=== PATIENT | male | born 1990 | race Caucasian/White ===

== ENCOUNTER 2021-09-07 17:02 | Emergency (ER) | payer SELFPAY ==
[2021-09-07 17:13] VITALS: BP 119/75; PULSE 103; RESP 18; TEMP 37.3; O2SAT 93
--- NOTE | 2021-09-07 17:15 | DI.RAD_ITS ---
Exam(s) XR FOREARM RT EXAM: XR FOREARM RT CLINICAL HISTORY: pain. TECHNIQUE: 2D digital imaging was performed of the left forearm. Two views were obtained. AP and l ateral views were obtained. COMPARISON: No exams were available for comparison FINDINGS: BONES: No acute fracture is present. No bony destructive lesion is seen. Visualized portion of elbow and wrist joints are unremarkable. SOFT TISSUE: Normal. IMPRESSION: Unremarkable radiographs of the left forearm. DATA REPOSITORY: RADIATION DOSE DELIVERED:
--- NOTE | 2021-09-07 17:15 | DI.RAD_ITS ---
Exam(s) XR HUMERUS RT EXAM: XR HUMERUS RT CLINICAL HISTORY: pain. TECHNIQUE: 2D digital imaging was performed of the right humerus. Two images were obtained. AP and lateral views were obtained. COMPARISON: No exams were available for comparison FINDINGS: BONES: No acute fracture is present. No bony destructive lesion is seen. Visualized portion of elbow and shoulder joints are unremarkable. SOFT TISSUE: Normal. IMPRESSION: Unremarkable radiographs of the right humerus. DATA REPOSITORY: RADIATION DOSE DELIVERED:
--- NOTE | 2021-09-07 17:15 | DI.RAD_ITS ---
Exam(s) XR ELBOW RT COMPLETE EXAM: XR ELBOW RT COMPLETE CLINICAL HISTORY: pain. TECHNIQUE: 2D digital imaging was performed of the left elbow. Three images were obtained. AP, lat eral and oblique views were obtained. COMPARISON: No exams were available for comparison FINDINGS: BONES: No acute fracture is present. No bony destructive lesion is seen. JOINTS: The elbow is normally aligned. No joint effusion is seen. SOFT TISSUE: Normal. IMPRESSION: Unremarkable radiographs of the right elbow. DATA REPOSITORY: RADIATION DOSE DELIVERED:
--- NOTE | 2021-09-07 17:22 | ED.GENADUL_ITS ---
Discharge Plan Disposition Patient Disposition: HOME Condition: Stable Discharge Details Clinical Impression: Contusion of arm, left Primary Care Provider: Unknown,Unknown ED Provider: Pranav Henry Home Meds and New Rx's Prescriptions: No Action No Known Home Meds RF: 0 Discharge Instructions Instructions: Contusion in Adults (ED) Additional Instructions: The xrays did not show any broken bones you likely have a bone bruise you can take 1000mg tylenol and 600mg ibuprofen every 6 hours as needed for pain if pain continues in a week follow up with your primary care provider return to the emergency department if you feel more ill, have severe worsening pain or new pain such as chest pain or abdominal pain Medical Decision Making 31 yo male comes in with right arm pain. 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 He has had pain in the distal right humerus, elbow and proximal forearm since. Denies headache, neck pain, chest pain, abdominal pain. He has no significnt deformity or swelling on my exam compared to the left. No erythema on my exam. Normal sensatation and pulses, no tenderness in the hand or wrist with full rom. Tenderness over proximal anterior forearm, olecranon, and distal anterior humerus. No tenderness over the shoulder with full range of motion. Suspect contusion but will xray to evaluate for fx. No significant swelling, muscle feels soft and neurovascularly intact so doubt compartment syndrome imaging unremarkable and he remains stable. Discussed with patient and he is stable for d/c advised to f/u with pcp in a week if pain continues and return precautions given Differential Diagnosis Differential Diagnosis: contusion, fracture, sprain Imaging Data Radiologic Study: Attestation: I personally reviewed and interpreted this imaging study as follows: Imaging: X-Ray My impression: no acute findings on humerus xray Radiologic Study #2: Attestation: I personally reviewed and interpreted this imaging study as follows: Imaging: X-Ray My impression: no acute findings on elbow xray Radiologic Study #3: Attestation: I personally reviewed and interpreted this imaging study as follows: Imaging: X-Ray My impression: no acute finings on forearm xray HPI General Mode of arrival: ambulatory . Date/Time Provider Initiated Documentation: 09/07/21 17:04 . Limitations to Documentation: no limitations . Information obtained by: patient . History of Present Illness 31 year old M presents to the emergency department with the chief complaint of right elbow pain, described as moderate, Quality is described as aching, and is localized to the right and upper extremity. Patient reports no radiation. Patient started experiencing this day(s) (1) and it has been constant. Rest improves symptom(s), Movement worsens symptoms . Patient notes no other symptoms.. Patient did receive the following treatments prior to arrival, none Related Data Home Medications Medication Instructions Recorded Confirmed Unknown [No Known Home Meds] 09/07/21 09/07/21 Allergies Allergy/AdvReac Type Severity Reaction Status Date / Time No Known Allergies Allergy Unverified 09/07/21 17:16 General Stated Complaint: Orthopedic FAITH: 4 Review of Systems All systems reviewed & are unremarkable except as noted in HPI and below Constitutional Constitutional: Denies chills, Denies fever(s) and Denies weakness Cardiovascular Cardiovascular: Denies chest pain and Denies dyspnea Respiratory Respiratory: Denies cough and Denies dyspnea Gastrointestinal Gastrointestinal: Denies abdominal pain, Denies nausea and Denies vomiting Integumentary/Breasts Skin/Breast: Denies rash Neurologic Neurologic: Denies weakness [facility] Medical History (Updated 09/07/21 @ 18:29 by Pranav Henry MD) Bipolar 1 disorder Surgical History (Updated 09/07/21 @ 17:30 by Mansi Bee) History of vasectomy Social History Smoking/Tobacco Use Status: Current every day Tobacco Type: cigarettes Smoking risk assessment performed?: Yes Alcohol Intake: current Alcohol Intake frequency: 0-2 drinks per day Drug use: Daily Substance use type: marijuana Do you feel safe at home: Yes Do you feel safe in your relationship?: Yes Exam Const General: no acute distress Orientation: alert HENMT Head: normal to inspection Ears: external ears normal General nose exam: external nose normal Mouth: moist mucous membranes Eyes General: appearance normal, both eyes and all related structures Neck Neck: normal visual inspection Resp Effort & Inspection: normal respiratory effort and able to speak in complete sentences Cardio Rate: regular rate Skin General skin exam: no rashes or lesions noted Neuro General: patient alert and patient oriented x3 Extrem General: full ROM and capillary refill normal Psych Mental Status: mental status grossly normal Course Vital Signs Vital signs: Vital Signs Temperature 37.3 C 10/21/21 17:13 Pulse 103 H 09/07/21 17:13 Respiratory Rate 18 09/07/21 17:13 Blood Pressure 119/75 09/07/21 17:13 Pulse Oximetry 93 09/07/21 17:13 Temperature 37.3 C 09/07/21 17:13 Temperature Source Skin 09/07/21 17:13 Pulse 103 H 09/07/21 17:13 Respiratory Rate 18 09/07/21 17:13 Respiratory Effort Non-Labored 09/07/21 17:17 Blood Pressure 119/75 09/07/21 17:13 Pulse Oximetry 93 09/07/21 17:13 Pain Level 7 09/07/21 17:13 PAWSS Have you Been Recently Intoxicated or Drunk Within the Last 30 days?: Yes Have you Ever Experienced Previous Episodes of Alcohol Withdrawal?: No Have you ever Experienced Withdrawal Seizures?: No Have you ever Experienced Delirium Tremens(DT)s?: No Have you ever undergone Alcohol Rehabilitation Treatment (i.e, inpt ot outpatient treatment programs)?: No Have you ever Experienced Blackouts?: No Have you ever Combined Alcohol with other Downers within the last 90 days?: No Have you ever Combined Alcohol with any other Substance of Abuse during the last 90 days?: Yes Evidence of Increased Autonomic Activity (i.e. HR>120, tremor, sweating, agitation, nausea)?: No Result: 3
[2021-09-07] MEDS: Ibuprofen 600 MG TAB PO (17:29)
--- NOTE | 2021-09-07 18:37 | DI.VRAD_ITS ---
PROCEDURE INFORMATION: Exam: XR Right Forearm Exam date and time: 09/07/2021 6:18 PM Age: 31 years old Clinical indication: Pain; Lower or forearm and upper arm; Right TECHNIQUE: Imaging protocol: XR Right forearm. Views: 2 views. COMPARISON: CR XR ELBOW RT COMPLETE 09/07/2021 6:13 PM FINDINGS: Bones/joints: Normal. Soft tissues: Normal. IMPRESSION: No acute findings. Dictated and Authenticated by: Adis Pena MD. Ordering:TIMBO Rock MD
--- NOTE | 2021-09-07 18:37 | DI.VRAD_ITS ---
PROCEDURE INFORMATION: Exam: XR Right Elbow Exam date and time: 09/07/2021 6:18 PM Age: 31 years old Clinical indication: Pain; Elbow; Right TECHNIQUE: Imaging protocol: XR Right elbow. Views: 3 or more views. COMPARISON: CR XR HUMERUS RT 09/07/2021 6:07 PM FINDINGS: Bones/joints: Normal. Soft tissues: Normal. IMPRESSION: No acute findings. Dictated and Authenticated by: Adis Pena MD. Ordering:TIMBO Rock MD
--- NOTE | 2021-09-07 18:55 | DI.VRAD_ITS ---
PROCEDURE INFORMATION: Exam: XR Right Humerus Exam date and time: 09/07/2021 6:18 PM Age: 31 years old Clinical indication: Pain; Upper arm and other: Humerus; Right TECHNIQUE: Imaging protocol: XR Right humerus. Views: 2 or more views. COMPARISON: No relevant prior studies available. FINDINGS: Bones/joints: Normal. Soft tissues: Normal. IMPRESSION: No evidence for acute abnormality. Dictated and Authenticated by: Kanika Davey MD. Ordering:TIMBO Rock MD
[2021-09-07 19:10] VITALS: BP 138/74; PULSE 64; RESP 18; O2SAT 98
== END 2021-09-07 19:12 | disposition home or self-care (01) ==
PROVIDERS: Emergency Provider Emergency Medicine
DX: S50.01XA Contusion of right elbow, initial encounter (principal); W23.0XXA Caught, crushed, jammed, or pinched between moving objects, initial encounter
CPT/HCPCS: 99284; 73060; 73080; 73090; 99283

== ENCOUNTER 2022-06-05 06:42 | Emergency (ER) | payer OTHER, SELFPAY ==
[2022-06-05 06:48] VITALS: BP 163/78; PULSE 89; RESP 16; TEMP 36.5; O2SAT 97
--- OUTSIDE RECORDS SUMMARY | 2022-06-05 06:49 | XMS_ITS | Encounter Summary ---
:1990 Author Organization [facility] Address [address] [place] [address] Care Team Providers Name Role Phone Rogelio Dominguez MD Primary Care Provider Encounter Details Date Type Department Care Team Description 02/16/2021 Travel Social History Tobacco Use Types Packs/Day Years Used Date Current Every Day Smoker Cigarettes 1 7 Smokeless Tobacco: Never Used Comments: off and on for 7 years Alcohol Use Standard Drinks/Week Comments Yes 35 (1 standard drink = 0.6 oz pure alcoh ol) Sex Assigned at Date Recorded Male 09/05/2020 10:43 EDT COVID-19 Exposure Response Date Recorded In the last month, have you been in contact with No / Unsure 02/16/2021 9:48 EDT someone who was confirmed or suspected to have Coronavirus / COVID-19? documented as of this encounter Functional Status Functional Status Response Date of Assessment Because of a physical, mental, or emotional condition, No 05/16/2018 does this person have difficulty doing errands alone such as visiting a doctor's office or shopping? Cognitive Status Response Date of Assessment Because of a physical, mental, or emotional condition, No 05/16/2018 does this person have serious difficulty concentrating, remembering, or making decisions? documented as of this encounter Plan of Treatment Not on filedocumented as of this encounter Goals Goal Patient Goal Associated Recent Patient-Stated? Author Type Problems Progress Blood Pressure Blood Pressure Hypertensive 145/96 No Vosb urg, < 130/80 disorder (06/04/2022 SHIRA Boyd 13:12 EDT) Being Active General Severe obesity No Jesse, with body mass TelisaALLIE N index (BMI) of 35.0 to 39.9 with comorbidity ([facility]) Note: Being Active Goal: Go for a walk 4 times per week for 20 minutes. The patient's confidence level, sources of support and barriers to change were assessed. Pertinent information is documented in the visit encounter. Counseling was provided to assess readiness, confidence and/or barriers to self-care. 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
--- OUTSIDE RECORDS SUMMARY | 2022-06-05 06:49 | XMS_ITS | Encounter Summary ---
:1990 Author Organization [facility] Address [address] [place] [address] Care Team Providers Name Role Phone Rogelio Dominguez MD Primary Care Provider Reason for Visit Reason Onset Date Comments COVID-19 02/27/2021 Nasal Congestion 02/27/2021 Pharyngitis 02/27/2021 Encounter Details Date Type Department Care Team Description 02/27/2021 Telephone [facility] Rogelio Dominguez MD COVID-19; Nasal Family Medicine - [address] [facility] Congestion; [place] [address] [place] [address] [phone] Social History Tobacco Use Types Packs/Day Years [...] making decisions? documented as of this encounter Miscellaneous Notes [place] En[place] - 02/27/2021 1771 EDT Patient reports positive COVID-19 exposure. Last date of exposure: Today 02/27/21 How long was the exposure? Lives with Masks? Yes, since known positive Any Symptoms? Nasal congestion, ST more mucus (Just sent another family member to hospital with concern for COVID) 7 day post exposure date: 03/06/21; -Patient reports they live in a one bedroom apartment, not really able to isolate away. Discussed protocol with Patient that if he is not able to isolate away from partner then second testing date would need to change. Will order for 7 day for now, if not positive after first, will need to find out exactly when partners quarantine is over to re-order for 7 days post end of partner's quarantine. Vaccinated? no Per [place] [facility]: Get tested twice ??? as soon as two days after you were exposed to the person with COVID-19, and again seven days after the exposure. If your initial test is negative, you will need to remain in quarantine and follow guidance from the Health Department. If this test is positive, you must follow isolation guidance from the Health Department. Find out where to get tested. It's okay to leave home for testing. Getting tested right away means you can find out if you have COVID-19 early. This also helps the Health Department find other people who have COVID-19 more quickly. Getting tested before day 7 cannot be used to end quarantine. (https://www.[facility].gov/covid-19/symptoms-sickness/kcaoo-aepxshvj-ooeouok -tracing) Preferred testing location: [facility] Preferred phone No: [phone] City/Town of residence: [place] If a patient is experiencing acute symptoms requiring urgent or emergent care(shortness of breath ordifficulty breathing), patient should be directed to appropriate service (i.e. Urgent Care or ED).Provider must notify Urgent Care or ED of patient???s arrival. If appropriate, testing will occur at Urgent Care/ED. ADVISE PATIENT TO WAIT WHERE THEY ARE AND AWAIT FURTHER DIRECTION. Forward to PCP/POD for further review/sign testing order. [facility] COVID-19 Hotline for providers to support decision-making in the care of patients suspected ofhaving COVID-19: ([phone] [phone]. 10/06 emergent or urgent assistance from [facility] representatives: [phone] elephone Encounter - Lisa Haider - 02/27/2021 0803 EDT Reason for Call: COVID-19, Nasal Congestion, and Pharyngitis Summary/Symptoms: Patient's girlfriend tested positive for COVID yesterday, so now patient is requesting a COVID test. Patient states he just a runny nose and sore throat. Onset and Duration? Ongoing Appointment Offered? No Lisa Haider 02/27/2021 8:04 documented in this encounter Plan of Treatment Not on filedocumented as of this encounter Goals Goal Patient Goal Associated Recent Patient-Stated? Author Type Problems Progress Blood Pressure Blood Pressure Hypertensive 145/96 No Vosb urg, < 130/80 disorder (06/04/2022 SHIRA Boyd 13:12 EDT) Being Active General Severe obesity No Jesse, with body mass Telisa, LP N index (BMI) of 35.0 to 39.9 with comorbidity ([facility]) Note: Being Active Goal: Go for a walk 4 times per week for 20 minutes. The patient's confidence level, sources of support and barriers to change were assessed. Pertinent information is documented in the visit encounter. Counseling was provided to assess readiness, confidence and/or barriers to self-care. To learn more about your health please v isit: [facility] Wellness Resource documented as of this encounter Results (ABNORMAL) COVID-19 TESTING (02/27/2021 15:37 EDT) COVID-19 rt-PCR Positive ([facility]) Negative [facility] Result Comment: LABORATORY This test has not been FDA c leared or approved. This test has been authorized by FDA under an EUA for use by authorized laboratories. This test has been authorized only for detection of nucleic acid fro SERVICES m 2019-nCoV, not for any oth er viruses or pathogens. This test is only authorized for the duration of the declaration that circumstances exist justifying the authorization of emergency use of in vitro d iagnostic tests for detectio n and/or diagnosis of 2019-nCoV under section 564(b)(1) of Act, 21 U.S.C ?? 360bbb-3(b) (1), unless the authorization is terminated or revoked sooner. Testing was performed using the ravi SARS-CoV-2 assay ([employer] on the Ravi 6800 System Performing Lab Ravi [address] [facility] Lab [facility] Specimen Swab - Entire nasopharynx (body structur e) Performing Organization Address City/State/ZIP Code Phon e Number [facility] [address] [place] [address] SERVICES documented in this encounter Visit Diagnoses Diagnosis Nasal congestion - Primary Other diseases of nasal cavity and sinus es Sore throat Acute pharyngitis Exposure to COVID-19 virus documented in this encounter Care Teams Lead Project Manager Relationship Specialty Start Date End Date Rogelio Dominguez MD PCP - General Family Medicine - Primary 02/02/21 [address] [place] [address] documented as of this encounter
--- OUTSIDE RECORDS SUMMARY | 2022-06-05 06:49 | XMS_ITS | Encounter Summary ---
:1990 Author Organization [facility] Address [address] [place] [address] Care Team Providers Name Role Phone Beverly Mix MD Primary Care Provider Reason for Referral Consult (Routine) - Closed Specialty Diagnoses / Procedures Referred By Contact Refer red To Contact Multidisciplinary Diagnoses Alcohol abuse, daily use Does not have health insurance Liz Donis NP [facility] Health Team [address] [place] [address] [phone] [place] [address] Fax: Referral ID Status Reason Start Date Expiration Date Visits V isits Requested Authorized [id number] Closed Specialty 09/05/2020 1 1 Services Required Question Answer Reason for referral: Assistance with social determinants/community resou rces needed Is patient aware referral is being made: No Reason for Visit Reason Comments Mental Health Condition Would like to discuss anxiet y, depression and bipolar and possibly restarting medicati on. 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 Depression, unspecified depression type; [address] Does not have health insuran [id number] [place] [address] [phone] Social History Tobacco Use Types Packs/Day Years Used Date Current Every Day Smoker Cigarettes 1 7 Smokeless Tobacco: Never Used Tobacco Cessation: Ready to Quit: Yes; C ounseling Given: Yes Comments: off and on for 7 years Alcohol Use Standard Drinks/Week Comments Yes 35 (1 standard drink = 0.6 oz pure alcoh ol) Sex Assigned at Date Recorded Male 09/05/2020 10:43 EDT documented as of this encounter Functional Status [...] making decisions? documented as of this encounter Patient Instructions Patient InstructionsMartha Brown LPN - 09/05/2020 10:45 EDT Quitting smoking Stopping smoking is the best step you can take to improve your own health and lengthen your life. Quitting smoking will lower your risk for heart attacks, lung problems, and many forms of cancer. When you stop smoking, your loved ones will breathe less smoke from the air. That will lower their risk for asthma, lung infections, heart attacks, and lung cancer. You will also save money, look and smell better, and feel good about what you've done. Many people have quit smoking. The best way to quit is to be clear on your reasons for quitting, charly quit date, use medication, and work with a trained counselor. Tobacco Counseling in [facility] offers free counseling services to residents who are ready to cut back or quit using tobacco. Services include: phone coaching (), online tools and support for those who would like to make changes on their own (www.[employer]), as well as in-person group workshops. Free nicotine replacement therapy is available through all of these resources. To learn more about your options visit www.[employer].org or call -NOW ( ). To speak with an in-person tobacco counselor in [facility] call, [phone]. [place] Resident, please visit: [email or web address] I hope you quit smoking. I think it's the best thing you can do for your health. Please call our office if you have any questions. documented in this encounter Ordered Prescriptions Prescription Sig Dispensed Refills Start Date End Date naltrexone (REVIA) 50 mg Take 1 Tab by mouth 30 Tab 0 10/05/2020 tablet daily for 30 days. documented in this encounter Progress Notes Jocelin Sharif - 09/05/2020 1045 EDT Family Medicine Video Visit Assessment & Plan Diagnoses and all orders for this visit: Alcohol abuse, daily use and Depression, unspecified - Naltrexone (REVIA) 50 mg tablet sent to [address] - Continue with counseling sessions - Education provided on emergency contact information for SI, encouraged to utilize this information/service should symptoms change or worsen. - Education provided on contribution of alcohol and worsening sx of depression, anxiety and sleep difficulties. - Follow up in 1-2 weeks for naltrexone effectiveness and depression/anxiety symptoms. - Consider referral to Dr. Ann given his report of multiple failed antidepressants in the past - Contact office if symptoms worsen or a sooner appointment is needed. - CMP at next visit No follow-ups on file. Patient education was direct. Barriers were assessed and addressed as needed. I JOCELIN SHARIF RN, Nurse Practitioner student collected the history, performed the physical exam and scribed the note for the following visit, under the supervision of the provider. I Liz Donis APRN personally supervised the services recorded by the nurse practitioner student in my presence. I confirm her documentation has been reviewed by me to accurately and completely record my work, treatment, procedures and medical decision making. Subjective Zeeshan Gonzalez Jr. is a 30 y.o. male presenting with Mental Health Condition (Would like to discuss anxiety, depression and bipolar and possibly restarting medication.) NOHEMY Byers presents for symptoms of depression/anxiety and increased alcohol consumption. Extensive mental health hx including suicide attempts, reported hx of bipolar and admission to [facility].Long hx of baseline SI with a plan and a means to carry out firearms in home but is adamant he would never go through with due to having 3 children that need him. Interested in discussing treatment options but would like to avoid depression/anxiety medications unless necessary, stating these have worsened SI symptoms in past. Describes increased stressors beginning in August of last year, job stress, passing of grandmother in 2018, as well as relationship and custody difficulties. Good relati onship with current partner, discussion was had regarding drinking and emotional abuse to significant other when this occurs. Knows this alcohol consumption is something he needs to get under control. Has tried AA in past and has a recovery operator currently not as affective as he needs this to be. Started working with a counselor last week, this is going well and will continue, has seen Aissatou Aj at [facility] in past as well. Currently on no medications for depression/anxiety. Denies illicit substance use including opioids. However, discusses one occasion of cocaine use 3 months ago while he was intoxicated. Stating this was a mistake and due to a friend he was hanging out with, he no longer associates with this friend and no cocaine use since. Current smoker (tobacco and some marijuana). Consuming 3-6 'tall boys' per day, intoxicated most days of week, stating he is only sober a max of one days at a time (no consecutive sober days during week). Denies drinking at work or being intoxicated at work. He has 10-12 hr shifts and does not drink during this time. Currently feels safe in home and has emergency contact information for first call should his SI change or worsen. Does not have health insurance. Open to medications to aid in decreased alcohol consumption. Data reviewed this visit: problem list/past medical history, current medications and allergies Patient Active Problem List Diagnosis ??? Other activity ??? Obesity ??? Acanthosis nigricans ??? Depression ??? Hypertensive disorder ??? Asthma ??? Metabolic syndrome X ??? Right low back pain ??? Acute bilateral low back pain with bilateral sciatica ??? Does not have health insurance ??? Alcohol abuse, daily use Current Outpatient Medications on File Prior to Visit Medication Sig Dispense Refill ??? acyclovir (ZOVIRAX) 200 mg capsule 2 tablets every 8 hours for 10 days 60 Cap 0 No current facility-administered medications on file prior to visit. Past Medical History: Diagnosis Date ??? Asthma ??? Chicken pox As a child ??? Depression ??? PTSD (post-traumatic stress disorder) Review of Systems Constitutional: Negative for chills and fever. Respiratory: Negative for shortness of breath. Cardiovascular: Negative for chest pain and palpitations. Neurological: Negative for headaches. Psychiatric/Behavioral: Positive for sleep disturbance and suicidal ideas. Negative for self-injury.The patient is nervous/anxious. - See [facility] TELEMEDICINE VIDEO VISIT Today's visit was provided through telemedicine video conferencing: The location of the patient : Home The location of the provider: Office The following staff and their role did participate in today's encounter visit: JOCELIN SHARIF Objective There were no vitals taken for this visit. Physical Exam Constitutional: General: He is not in acute distress. Appearance: He is well-developed and well-nourished. Neurological: Mental Status: He is alert and oriented to person, place, and time. Psychiatric: Behavior: Behavior normal. Comments: Slightly flattened affect Martha Workman LPN - 09/05/2020 1045 EDT The concept of ???Telemedicine?? has been described to the patient.? Patient has been informed of the anticipated benefits and possible risks.? Patient understands the information provided regarding telemedicine, has had the opportunity to ask questions about this information, and all questions have been answered to patient???s satisfaction. Patient consents for the use of telemedicine in his/her medical care and authorizes the transmission of any relevant medical information to providers and theirstaff involved in patient???s medical or mental health care. TELEMEDICINE VIDEO VISIT Today's visit was provided through telemedicine video conferencing: The location of the patient : Home The location of the provider: Office The following staff and their role did participate in today's encounter visit: MARTHA BROWN LPN Consent obtained today for administrative nursing supervisor to participate in care. MARTHA BROWN LPN 09/05/2020 10:47 Behavioral Health Screen PHQ-2 Little interest or pleasure in doing things?: Nearly every day Feeling down, depressed, or hopeless?: Nearly every day PHQ-2 SUBTOTAL: 6 PHQ-9 Trouble falling or staying asleep, or sleeping too much?: Nearly every day Feeling tired or having little energy?: More than half the days Poor appetite or overeating?: More than half the days Feeling bad about yourself - or that you are a failure or have let yourself or your family down?: Nearly every day Trouble concentrating on things, such as reading the newspaper or watching TV?: Not at all Moving or speaking so slowly that other people have noticed? Or the opposite - being so fidgety or restless that you have been moving around a lot more than usual?: Not at all Thoughts that you would be better off , or of hurting yourself in some way?: Nearly every day PHQ-9 TOTAL: 19 PHQ-9 Score Details: Moderately Severe Depression GRETCHEN-2 GRETCHEN-2 Subtotal: 6 GRETCHEN-7 GRETCHEN-7 Score Interpretation: Severe Anxiety SASQ How many times in the past year have you had 5 or more drinks in a single day?: More than once AUDIT-10 How often do you have a drink containing alcohol?: 4 or more times/week How many drinks containing alcohol do you have on a typical day when you are drinking?: 5 or 6 How often do you have six or more drinks on one occasion?: weekly How often during the last year have you found that you were not able to stop drinking once you had started?: daily or almost daily How often during the last year have you failed to do what was normally expected of you because of drinking?: Never How often during the last year have you needed a first drink in the morning to get yourself going after a heavy drinking session?: never How often during the last year have you had a feeling of guilt or remorse after drinking?: daily or almost daily How often during the last year have you been unable to remember what happened the night before because of your drinking?: never Have you or someone else been injured because of your drinking?: No Has a relative, friend, doctor, or other health care worker been concerned about your drinking or suggested you cut down?: Yes, during past year AUDIT-10 TOTAL: 21 AUDIT Interpretation: Screen positive for High-risk or Harmful alcohol use AUDIT Suggested Action: Referral to community resources/treatment Prescription Misuse How many times in the past year have you used an illegal drug or used a prescription medication for non-medical reasons?: Never DAST-10 MARTHA BROWN LPN 09/05/2020 10:53 documented in this encounter Plan of Treatment Scheduled Referrals Name Type Priority Associated Order Schedule Diagnoses AMB CONS/FOLLOW UP Outpatient Referral Routine Alcohol abuse, Ordered: MEDICAL HOME CARE daily use 09/05/2020 MANAGEMENT Does not have health insurance documented as of this encounter Goals Goal Patient Goal Associated Recent Patient-Stated? Author Type Problems Progress Blood Pressure Blood Pressure Hypertensive 145/96 No Vosb urg, < 130/80 disorder (06/04/2022 SHIRA Boyd 13:12 EDT) Being Active General Severe obesity No Jesse, with body mass TelisaALLIE N index (BMI) of 35.0 to 39.9 with comorbidity ([facility]) Note: Being Active Goal: Go for a walk 4 times per week for 20 minutes. The patient's confidence level, sources of support and barriers to change were assessed. Pertinent information is documented in the visit encounter. Counseling was provided to assess readiness, confidence and/or barriers to self-care. To learn more about your health please v isit: [facility] Wellness Resource documented as of this encounter Visit Diagnoses Diagnosis Alcohol abuse, daily use - Primary Nondependent alcohol abuse, continuous d rinking behavior Depression, unspecified depression type Does not have health insurance Other specified housing or economic circ umstances documented in this encounter Care Teams Appraiser Auditor Relationship Specialty Start Date End Date Beverly Mix MD PCP - General Family Medicine - Primary 05/18/20 1 [address] [place] [phone] documented as of this encounter
--- OUTSIDE RECORDS SUMMARY | 2022-06-05 06:49 | XMS_ITS | Encounter Summary ---
:1990 Author Organization [facility] Address [address] [place] [address] Care Team Providers Name Role Phone Mary Kate Mcduffie MD Primary Care Provider Reason for Visit Reason Comments Body Fluid Exposure Consult (48 Hrs (Urgent)) - Receiving Office to Obtain Authorization Specialty Diagnoses / Procedures Referred By Contact Refer red To Contact Infectious Disease Diagnoses Needle stick, hypodermic, accidental, initial encounter Lauren Carter PA-C Ep5 Infectious Disease [facility] [address] [facility], [place] [address] Pavilion, Level [address] [place], [place] Fax: [phone] Referral ID Status Reason Start Expiration Visits Visits Date Date Requested Authorized [id number] Receiving Office Specialty 1 1 to Obtain Services 0 Authorization Required Encounter Details Date Type Department Care Team Description 04/13/2020 Telemedicine [facility] Kerrie Corrales, VANNESA Needlestick injury Infectious Disease - [address] [facility] with [facility] [address] exposure to body [address] [facility] fluid (Primary Dx) [place] [address] Pavilion, [place] [phone] (Wo rk) Social History Tobacco Use Types Packs/Day Years Used Date Current Every Day Smoker Cigarettes 1 7 Smokeless Tobacco: Never Used Comments: off and on for 7 years Alcohol Use Standard Drinks/Week Comments Yes 7 (1 standard drink = 0.6 oz pure alcoho l) im 1 week sober Alcohol Habits Answer Date Recorded How often do you have a drink containing alcohol? Not asked How many drinks containing alcohol do you have on a Not aske d typical day when you are drinking? How often do you have six or more drinks on one Not asked occasion? Comment: im 1 week sober 09/29/2019 Sex Assigned at Date Recorded Male 09/05/2020 10:43 EDT COVID-19 Exposure Response Date Recorded In the last month, have you been in contact with No / Unsure 04/09/2020 22:48 EDT someone who was confirmed or suspected [...] making decisions? documented as of this encounter Ordered Prescriptions Prescription Sig Dispensed Refills Start Date End Date emtricitabine-rilpivirine- Take 1 Tab by mouth 24 Tab 0 04/13/2020 08/18/2020 tenofovir disprox daily. (COMPLERA) 200-25-300 mg per tablet documented in this encounter Progress Notes Kerrie Corrales APRN - 04/13/2020 0900 EDT INFECTIOUS DISEASES New Consult: Division of Infectious Disease Follow up/Progress Note 04/13/20 9:51 TELEMEDICINE VIDEO VISIT Today's visit was provided through telemedicine video conferencing: The location of the patient : Home The location of the provider: Home The following staff and their role did participate in today's encounter visit: Kerrie Corrales APRN The concept of ???Telemedicine?? has been described [...] in patient???s medical or mental health care. HPI: Patient is a 30 y.o male who was seen today for follow up of a needlestick injury. 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 There was no blood. He is unsure how old the needle was/who used it. He was seen at the emergency room and was given immunoglobulin and first Heplisav vaccine. He was started on Complera. Overall he is doing well. ROS: a 10 point ROS is otherwise negative Past Medical History: Diagnosis Date ??? Asthma ??? Chicken pox As a child ??? Depression Past Surgical History: Procedure Laterality Date ??? TYMPANOSTOMY TUBE PLACEMENT MEDICATIONS: I have updated the medication list on the EMR PHYSICAL EXAMINATION: There were no vitals taken for this visit. Gen A x 3 in no acute distress LABORATORIES: 04/09/2020 23:43 Hepatitis B Surface Antibody: Negative Hepatitis B Surface Antigen: Negative Hep B core antibody negative Rapid antibody negative IMPRESSION: Needlestick exposure- Stuck with a needle while at work on 04/09/2020. Was seen at the ER and was given HIV post exposure prophalyasix for with Complera. Found to be Hep B antibody negative- post exposure immunoglobulin and first Hep B vaccine was administered. Will need to get second Heplisav vaccine in a month. Will continue on Complera for a full 28 day course. I will follow up with him in one month for lab monitoring (Hep C, HIV and Hep B) and second Heplisav vaccine. PLAN: 1. Complera for 24 days. 2. Follow up in one month for second Heplisav vaccine and lab draw: HIV antibody, Hep C antibody, Hep B antigen. Kerrie Corrales APRN documented in this encounter Plan of Treatment Not on filedocumented as of this encounter Goals Goal Patient Goal Associated Recent Patient-Stated? Author Type Problems Progress Blood Pressure Blood Pressure Hypertensive 145/96 No Vosb urg, < 130/80 disorder (06/04/2022 SHIRA Boyd 13:12 EDT) documented as of this encounter Visit Diagnoses Diagnosis Needlestick injury accident with exposur e to body fluid - Primary documented in this encounter Care Teams Special Education Para Professional Relationship Specialty Start Date End Date Mary Kate Mcduffie MD PCP - General Family Medicine - Primary 01/08/20 Care documented as of this encounter
--- OUTSIDE RECORDS SUMMARY | 2022-06-05 06:49 | XMS_ITS | Encounter Summary ---
:1990 Author Organization [facility] Address [address] [place] [address] Care Team Providers Name Role Phone Rogelio Dominguez MD Primary Care Provider Encounter Details Date Type Department Care Team Description 02/09/2021 Abstract [facility] Rogelio Hansen MD [facility] [id number] [place] [id number] [phone] Social History Tobacco Use Types Packs/Day Years [...] (BMI) of 35.0 to 39.9 with comorbidity ([facility]) Note: Being Active Goal: Go for a walk 4 times per week for 20 minutes. The patient's confidence level, sources of support and barriers to change were assessed. Pertinent information is documented in the visit encounter. Counseling was provided to assess readiness, confidence and/or barriers to self-care. To learn more about your health please v isit: [facility] Wellness Resource documented as of this encounter Visit Diagnoses Not on filedocumented in this encounter Care Teams Urgent Care Technician Relationship Specialty Start Date End Date Rogelio Dominguez MD PCP - General Family Medicine - Primary 02/02/21 [address] [place] [address] documented as of this encounter
--- OUTSIDE RECORDS SUMMARY | 2022-06-05 06:49 | XMS_ITS | Encounter Summary ---
:1990 Author Organization [facility] Address [address] [place] [address] Care Team Providers Name Role Phone Rajiv Dominguez MD Primary Care Provider Reason for Referral PT/OT/ST (3 - 10 Business Days) - Specialty Report Received Specialty Diagnoses / Procedures Referred By Contact Refer red To Contact Rehab Therapies Diagnoses Acute right-sided low back pain with right-sided sciatica Pamella Britt [facility] [address] [id number] Fax: Referral ID Status Reason Start Expiration Visits Visits Date Date Requested Authorized [id number] Specialty Specialty 02/08/2021 1 1 Report Services Received Required Question Answer Reason for Request: acute right sided low back p ain with radiculopathy Reason for Visit Reason Comments Telemedicine Video Visit Injury 1-2 months ago-fell out back of [facility]-now having back issues. not workmens comp Encounter Details Date Type Department Care Team Description 02/08/2021 Telemedicine [facility] Rajiv Dominguez MD Acute right-sided low Family Medicine - [address] [place] [address] right-sided sciatica [address] [facility] (Primary Dx) [place] [address] [phone] Social History Tobacco Use Types Packs/Day Years Used Date Current Every Day Smoker Cigarettes 1 7 Smokeless Tobacco: Never Used Tobacco Cessation: Ready to Quit: No; Co unseling Given: Yes Comments: off and on for [...] as of this encounter Patient Instructions Patient InstructionsYoan Camara - 02/08/2021 14:30 EDT Quitting smoking Stopping smoking is the [...] with a trained counselor. Tobacco Counseling in [facility] offers free counseling services to residents who are ready to cut back or quit using tobacco. Services include: phone coaching (), online tools and support for those who would like to make changes on their own (www.[employer].listedplaces), as well as in-person group workshops. Free nicotine replacement therapy is available through all of these resources. To learn more about your options visit www.[employer].org or call 9-208-OAMW-NOW ( ). To speak with an in-person tobacco counselor in [facility] call, [phone]. [place] Resident, please visit: [email or web address] I hope you quit smoking. I think it's the best thing you can do for your health. Please call our office if you have any questions. documented in this encounter Ordered Prescriptions Prescription Sig Dispensed Refills Start Date End Date methocarbamoL (ROBAXIN) 750 Take 1 Tab by mouth 15 Tab 0 02/08/2021 mg tabletIndications: Acute every 6 hours as right-sided low back pain needed for Muscle with right-sided sciatica Spasms. documented in this encounter Progress Notes Pamella Britt MD - 02/08/2021 1430 EDT Attestation statement for patient not seen by attending: I discussed the patient with the resident/fellow at the time of the visit and agree with the findings and the plan of care documented in the resident's/fellow's note. Pamella Britt MD Family Medicine Attending 02/09/2021 6:23 Rajiv Dominguez MD - 02/08/2021 1430 EDT Family Medicine Video Visit Assessment & Plan Diagnoses and all orders for this visit: Acute right-sided low back pain with right-sided sciatica - symptoms consistent with assessment at recent ED visit with a combination of muscular right low back pain with component of right sided sciatica - no reported signs of spinal stenosis or cauda equina that should prompt immediate evaluation - pt is about to complete medrol dose pain - will refill brief course of robaxin specifically for muscular low back pain and it will not assistthe radiculopathy - pt understands and is in agreement - PT referral placed and discussed recommendations to continue activity as much as tolerated as staying still will exacerbate pain and lengthen recovery - pt amenable to plan and in agreement - methocarbamoL (ROBAXIN) 750 mg tablet - AMB CONS/FOLLOW UP PHYSICAL THERAPY No follow-ups on file. Patient education was direct. Barriers were assessed and addressed as needed. Subjective Zeeshan Gonzalez Jr. is a 30 y.o. male presenting with Telemedicine Video Visit and Injury (1-2 months ago-fell out back of [facility]-now having back issues. not workmens comp) HPI Month and a half ago Fell out of [facility] Right sided low back pain, radiating down his right leg Worsened, peaked last week. Had ED visit - medrol pack, robaxin, ibuprofen Xrays show joint space loss at L5-S1, no fracture Now 02/25 - much improved Can relieve with lying down so spends much of him time in this position Can't drive and using the bathroom is difficult as flexing his back is the most painful 2 naproxen with robaxin helped Alcohol as pain medication - used to drink a lot but decreasing overall Intermittent tingling in his right foot. Denies numbness, weakness, saddle anesthesia, urinary/fecal incontinence Data reviewed this visit: problem list/past medical history, current medications, allergies, family history, social history, last visit note, health maintenance items, recent imaging, discussion with another provider and recent Emergency Department visit record Review of Systems - Pertinent positives and negatives are described in the HPI. TELEMEDICINE VIDEO VISIT Today's visit was provided through telemedicine video conferencing: The location of the patient : Home The location of the provider: Clinic Exam Room The following staff and their role did participate in today's encounter visit: RAJIV DOMINGUEZ MD; Objective Physical Exam - limited due to telemedicine Gen: well appearing man lying comfortably at home HEENT: NC/AT Resp: normal respiratory rate and effort Ext: no deformity Neuro: no apparent visible deficits Psych: appears euthymic with appropriate insight Pt discussed with Dr. Britt. Rajiv Dominguez MD Family Medicine, PGY-2 02/08/21 17:55 #[id number] Yoan Lafleur - 02/08/2021 1430 EDT The concept of ???Telemedicine?? has been [...] : Home The location of the provider: Clinic Exam Room The following staff and their role did participate in today's encounter visit: Yoan Camara documented in this encounter Miscellaneous Notes Addendum Note - Rajiv Dominguez MD - 02/08/2021 1430 EDT Addended by: RAJIV DOMINGUEZ on: 02/08/2021 18:09 Modules accepted: Orders documented in this encounter Plan of Treatment Scheduled Referrals Name Type Priority Associated Diagnoses Order S chedule AMB CONS/FOLLOW UP Outpatient Referral Routine Acute right-gardenia ed Ordered: PHYSICAL THERAPY low back pain with 02/08 right-sided sciatica documented as of this encounter Goals Goal Patient Goal Associated Recent Patient-Stated? Author Type Problems Progress Blood Pressure Blood Pressure Hypertensive 145/96 No Vosb urg, < 130/80 disorder (06/04/2022 SHIRA Boyd 13:12 EDT) Being Active General Severe obesity No Jesse, with body mass Telisa, LP N index (BMI) of 35.0 to 39.9 with comorbidity ([facility]) Note: Being Active Goal: Go for a walk 4 times per week for 20 minutes. The patient's confidence level, sources of support and barriers to change were assessed. Pertinent information is documented in the visit encounter. Counseling was provided to assess readiness, confidence and/or barriers to self-care. To learn more about your health please v isit: [facility] Wellness Resource documented as of this encounter Visit Diagnoses Diagnosis Acute right-sided low back pain with rig ht-sided sciatica - Primary documented in this encounter Discontinued Medications Medication Sig Discontinue Reason Start Date End Date methocarbamoL (ROBAXIN) Take 1 Tab by mouth Reorder 02/02/2021 02/08/2021 750 mg tablet every 6 hours as needed for Muscle Spasms. acyclovir (ZOVIRAX) 200 2 tablets every 8 07/31/2019 02/08/2021 mg capsule hours for 10 days documented as of this encounter Historical Medications This list may reflect changes made after this encounter. Medication Sig Dispensed Refills Start Date End Date acetaminophen (TYLENOL) 500 Take 500 mg by mouth 0 mg tablet every 6 hours as needed for Pain. naproxen sodium (ALEVE) 220 Take by mouth. 0 mg capsule added in this encounter Care Teams Polishing Machine Operator Helper Relationship Specialty Start Date End Date Rajiv Dominguez MD PCP - General Family Medicine - Primary 02/02/21 [address] [place] [address] documented as of this encounter
--- OUTSIDE RECORDS SUMMARY | 2022-06-05 06:49 | XMS_ITS | Encounter Summary ---
:1990 Author Organization [facility] Address [address] [place] [address] Care Team Providers Name Role Phone Madi Cook NP Primary Care Provider Reason for Referral Consult (See Order Priority) - Specialty Report Received Specialty Diagnoses / Procedures Referred By Contact Refer red To Contact Family Medicine Diagnoses Severe episode of recurrent major depressive disorder, without psychotic features (HCC) Madi Cook, LIVESTOCK PRODUCER [facility] [address] [facility] [address] [facility] [address] [place] [phone] [place] [address] Fax: Referral ID Status Reason Start Expiration Visits Visits Date Date Requested Authorized [id number] Specialty Specialty 1 Report Services 1 Received Required Question Answer Concerns Resulting in Behavioral Health Mental Health Assessment, Anxiety, Consultation: Depression Reason for Visit Reason Comments New Patient Visit Encounter Details Date Type Department Care Team Description 11/03/2021 Office Visit [facility] Family Madi Cook, Severe episode of Medicine [facility] LIVESTOCK PRODUCER recurrent major [address] [facility] [address] [facility] depressive disorder, [address] [place] [address] [place], [place] features (HCC) [phone] (Primary Dx) Social History Tobacco Use Types Packs/Day Years Used Date Current Every Day Smoker Cigarettes 1 7 Smokeless Tobacco: Never Used Comments: off and on for 7 years Alcohol Use Standard Drinks/Week Comments Yes 35 (1 standard drink = 0.6 oz pure alcoh ol) Sex Assigned at Date Recorded Male 09/05/2020 10:43 EDT documented as of this encounter Last Filed Vital Signs Vital Sign Reading Time Taken Comments Blood Pressure 144/80 11/03/2021 1611 EST Pulse 104 11/03/2021 1611 EST Temperature 37.3 ??C (99.2 ??F) 11/03/2021 1611 EST Respiratory Rate 20 11/03/2021 1611 EST Oxygen Saturation 97% 11/03/2021 161 EST Inhaled Oxygen Concentration - - Weight 106.1 kg (234 lb) 11/03/2021 161 EST Height - - Body Mass Index 38.94 02/16/2021 0954 EDT documented in this encounter Functional Status Functional Status Response [...] making decisions? documented as of this encounter Progress Notes Madi Cook NP - 11/03/2021 1615 EST Family Medicine Office Visit Assessment & Plan 31-year-old male patient seen in the office today to establish care. His biggest concern today is his mental health. He does not want to talk about his physical health today. He thinks that he would like to get his mental health under control first and then possibly discuss his physical health later. I did an urgent referral to behavioral health to see if we can figure out what we can do to help withhis mental health conditions. I think that avoiding medication is a good plan at this time. The patient is not interested in medication either. Would also be helpful to actually know what his diagnosesare prior to initiating any medication. Patient knows about the crisis lines if he has any significant increase in suicidal ideation or thoughts. Would like to follow-up with the patient in about a month to see how he is doing. Diagnoses and all orders for this visit: Severe episode of recurrent major depressive disorder, without psychotic features (HCC) - AMB CONS/FOLLOW UP BEHAVIORAL HEALTH Return in about 1 month (around 12/04/2021) for In Person OV. Patient education was direct. Barriers were assessed and addressed as needed. Subjective Zeeshan Gonzalez Jr. is a 31 y.o. male presenting with New Patient Visit HPI 31-year-old male patient seen in the office today for establishing care. The patient's biggest concern today is his mental health. He states a number of times that he is not concerned about his physical health. He states that he was in [facility] at age 14 and 15 after a suicide attempt. Patient states that he was diagnosed with bipolar at that time. Patient has had significant issues with substance abuse in the past and does not want any medication that could be addictive or misuse. He hasmisused bottles of Xanax as well as Ambien in the past. He also drinks alcohol fairly heavily. He states he has 4-5+16 ounce bottles of beer a day or a bottle of liquor. He also has sober days to wherehe goes multiple days without alcohol. His main coping mechanism for his mental health is alcohol use currently. He is working full-time at [employer], has 3 children and also a female partner. Patient states that he does smoke marijuana. He has been on a number of medications in the past including Wellbutrin, Effexor, Zoloft. None of these have helped much. Currently he is not looking for medication but is looking to discuss his issues with a counselor. Naohmioes mention episodes of significant impulsiveness for weeks and then what he describes as breakdowns that sound like depressive episodes. Some of this does sound like it fits with bipolar. He does have some thoughts of self-harm but these have been chronic for many years and he has no significant plans to act on them at this time. He knows about the crisis lines and where to call if he does have issues. Data reviewed this visit: problem list/past medical history, current medications and allergies Review of Systems - See HPI Objective BP (!) 144/80 (BP Cuff Location: Right arm, BP Patient Position: Sitting, BP Cuff Sizes: Adult, regular) Pulse 104 Temp 37.3 ??C (99.2 ??F) Resp 20 Wt (!) 106.1 kg (234 lb) SpO2 97% BMI 38.94 kg/m?? Physical Exam Vitals and nursing note reviewed. Constitutional: General: He is not in acute distress. Appearance: Normal appearance. He is well-developed. Neurological: Mental Status: He is alert. Psychiatric: Mood and Affect: Mood normal. Behavior: Behavior normal. Thought Content: Thought content normal. documented in this encounter Plan of Treatment Scheduled Referrals Name Type Priority Associated Order Schedule Diagnoses AMB CONS/FOLLOW UP Outpatient Referral Urgent Severe episode of Expected: BEHAVIORAL HEALTH recurrent major 021 depressive (Approximate), disorder, without Expires: psychotic features 2 ([facility]) documented as of this encounter Goals Goal Patient Goal Associated Recent Patient-Stated? Author Type Problems Progress Blood Pressure Blood Pressure Hypertensive 145/96 No Vosb urg, < 130/80 disorder (06/04/2022 SHIRA Boyd 13:12 EDT) Being Active General Severe obesity No Jesse, with body mass Telisa LP N index (BMI) of 35.0 to 39.9 with comorbidity ([facility]) Note: Being Active Goal: Go for a walk 4 times per week for 20 minutes. The patient's confidence level, sources of support and barriers to change were assessed. Pertinent information is documented in the visit encounter. Counseling was provided to assess readiness, confidence and/or barriers to self-care. To learn more about your health please v isit: [facility] Wellness Resource documented as of this encounter Visit Diagnoses Diagnosis Severe episode of recurrent major depres sive disorder, without psychotic features ([facility]) - Primary documented in this encounter Care Teams Armor Reconnaissance Specialist Relationship Specialty Start Date End Date Madi Cook NP PCP - General Family Medicine - Primary 11/03/[address] [place] [address] [phone] documented as of this encounter
--- OUTSIDE RECORDS SUMMARY | 2022-06-05 06:49 | XMS_ITS | Encounter Summary ---
:1990 Author Organization [facility] Address [address] [place] [address] Care Team Providers Name Role Phone Madi Cook NP Primary Care Provider Reason for Visit Reason Onset Date Comments Referral Request 01/02/2022 Encounter Details Date Type Department Care Team Description [facility]/02[facility]2022 [facility] Madi Cook, ADULT BASIC EDUCATION TEACHER Referral Request [facility] [address] [facility] [address] [place] [address] [place] [address] [phone] Social History Tobacco Use Types Packs/Day Years [...] this encounter Miscellaneous Notes Telephone Encounter - Janel Herrera - 01/02/2022 1420 EST There are no optometrists that front staff are aware are associated with [facility]. I informed the patient that he would need to call them as there is not a referral required for most of these offices. elephone Encounter - Madi Cook NP - 01/02/2022 1243 EST I agree referral to optometry is probably better. Can we actual refer people to optometrists? Are there any associated with hospital? elephone Encounter - Maryam Santoyo - 01/02/2022 0827 EST Kelly from [facility] is calling in asking if the patient has any other eye issues than what we referred hi for. They think Shean would be more fit to see n jailor. Please send new referral for jailor. documented in this encounter Plan of Treatment Not on filedocumented as of this encounter Goals Goal Patient Goal Associated Recent Patient-Stated? Author Type Problems Progress Blood Pressure Blood Pressure Hypertensive 145/96 No Vosb urg, < 130/80 disorder (06/04/2022 SHIRA Boyd 13:12 EDT) Being Active General Severe obesity No Jesse, with body mass TelisaALLIE N index (BMI) of 35.0 to 39.9 with comorbidity ([facility]) Note: Being Active Goal: Go for a walk 4 times per week for 20 minutes. The patient's confidence level, sources of support and barriers to change were assessed. Pertinent information is documented in the visit encounter. Counseling was provided to assess readiness, confidence and/or barriers to self-care. To learn more about your health please v isit: [facility] Wellness Resource documented as of this encounter Visit Diagnoses Not on filedocumented in this encounter Care Teams Surface Room Shop Optician Relationship Specialty Start Date End Date Madi Cook NP PCP - General Family Medicine - Primary 11/03/[address] [place] [address] [phone] documented as of this encounter
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
--- OUTSIDE RECORDS SUMMARY | 2022-06-05 06:49 | XMS_ITS | Encounter Summary ---
:1990 Author Organization [facility] Address [address] [place] [address] Care Team Providers Name Role Phone None, Provider Primary Care Provider Unavailable Encounter Details Date Type Department Care Team Description 09/29/2019 Travel Social History Tobacco Use Types Packs/Day [...] on filedocumented in this encounter Care Teams Security Associate Relationship Specialty Start Date End Date None, Provider PCP - General 09/29/19 01/07/20 documented as of this encounter
--- OUTSIDE RECORDS SUMMARY | 2022-06-05 06:49 | XMS_ITS | Encounter Summary ---
:1990 Author Organization [facility] Address [address] [place] [address] Care Team Providers Name Role Phone Madi Cook NP Primary Care Provider Encounter Details Date Type Department Care Team Description 11/24/2021 Travel Social History Tobacco Use Types Packs/Day [...] been in contact with No / Unsure 11/24/2021 14:27 EST someone who was confirmed or suspected to [...] (BMI) of 35.0 to 39.9 with comorbidity ([facility]) Note: Being Active Goal: Go for a walk 4 times per week for 20 minutes. The patient's confidence level, sources of support and barriers to change were assessed. Pertinent information is documented in the visit encounter. Counseling was provided to assess readiness, confidence and/or barriers to self-care. To learn more about your health please v isit: [facility] Wellness Resource documented as of this encounter Visit Diagnoses Not on filedocumented in this encounter Care Teams Air Quality Manager Relationship Specialty Start Date End Date Madi Cook, HEAD OF SCIENCE PCP - General Family Medicine - Primary 11/03/[address] [place] [phone] documented as of this encounter
--- OUTSIDE RECORDS SUMMARY | 2022-06-05 06:49 | XMS_ITS | Encounter Summary ---
:[address] [facility] Address [address] [place] [address] Care Team Providers Name Role Phone Mary Mix MD Primary Care Provider Reason for Visit Reason Comments Pharyngitis cough congestion Encounter Details Date Type Department Care Team Description 08/18/2020 Hospital Encounter [facility] Krunal Marion (Primary Dx); Urgent Care - Ellen Hurtado MD Upper respiratory tract infection, unspe cified type [facility] [address] [place], [place] [address] [address] [phone] [place] [address] Social History Tobacco Use Types Packs/Day Years [...] Sign Reading Time Taken Comments Blood Pressure 148/65 08/18/2020 1754 EDT Pulse 82 08/18/2020 1754 EDT Temperature 37.2 ??C (99 ??F) 08/18/2020 1754 EDT Respiratory Rate 18 08/18/2020 1754 EDT Oxygen Saturation 99% 08/18/2020 1754 EDT Inhaled Oxygen Concentration - - Weight - - Height - - Body Mass Index - - documented in this encounter Functional Status Functional [...] making decisions? documented as of this encounter Discharge Instructions InstructionsGilberto Marion MD - 08/18/2020 You should remain in quarantine until your COVID test results are known to be negative and you are feeling improved. All close household contacts should also remain in quarantine until your negative test results are known (and assuming they are asymptomatic). AttachmentsThe following attachments cannot be sent through Care Everywhere. COVID-19 SELF ISOLATION DISCHARGE INSTRUCTIONSURI (Upper Respiratory Infection) (Greenlandic)documented in this encounter Medications at Time of Discharge Medication Sig Dispensed Refills Start Date End Date acyclovir (ZOVIRAX) 200 2 tablets every 8 60 Cap 0 07/3102/08/2021 mg capsule hours for 10 days documented as of this encounter Discharge Disposition Disposition Code Departure Means Destination Home or Self Prison documented in this encounter ED Notes Gilberto Marion MD - 08/18/2020 1841 EDT DOS: 08/18/2020 Chief Complaint Patient presents with ??? Pharyngitis cough congestion The patient is a 30 y.o. male who presents today with Pharyngitis (cough congestion)s Cc runny nose, nasal congestion Awoke overnight feeling ill. Rhinorrhea, nasal congestion, cough, sore throat earlier but that feelsa little better. Achey, headache, back lower middle achy. Has had chills and sweats like he has a fever. No thermometer. 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 No known or suspect COVID exposures, no COVID testing. Review of Systems Constitutional: Positive for chills. HENT: Positive for congestion, rhinorrhea and sore throat. Negative for ear pain and sinus pressure. Eyes: Negative for discharge and redness. Respiratory: Positive for cough. Negative for chest tightness and shortness of breath. Cardiovascular: Negative for chest pain and leg swelling. Gastrointestinal: Negative for diarrhea and vomiting. Musculoskeletal: Negative for arthralgias, myalgias and neck pain. Skin: Negative for rash. Neurological: Negative for light-headedness. No current facility-administered medications for this encounter. Current Outpatient Medications Medication Sig Dispense Refill ??? acyclovir (ZOVIRAX) 200 mg capsule 2 tablets every 8 hours for 10 days 60 Cap 0 Allergies Allergen Reactions ??? Cats ??? Pollen Extracts Patient Active Problem List Diagnosis Date Noted ??? Acute bilateral low back pain with bilateral sciatica 02/04/2017 ??? Right low back pain 01/28/2017 ??? Asthma ??? Metabolic syndrome X ??? Acanthosis nigricans 12/21/2009 ??? Hypertensive disorder 08/18/2009 ??? Depression 06/06/2005 ??? Obesity 09/27/2004 Insulin resistance/metabolic syndrome ??? Other activity 06/18/2003 Case management. [facility] custody () Auto-update: regulatory requirement Past Medical History: Diagnosis Date ??? Asthma ??? Chicken pox As a child ??? Depression ??? PTSD (post-traumatic stress disorder) Social History Tobacco Use ??? Smoking status: Current Every Day Smoker Packs/day: 1.00 Years: 7.00 Pack years: 7.00 Types: Cigarettes ??? Smokeless tobacco: Never Used ??? Tobacco comment: off and on for 7 years Substance Use Topics ??? Alcohol use: Yes Alcohol/week: 35.0 standard drinks Types: 35 Standard drinks or equivalent per week ??? Drug use: Yes Frequency: 5.0 times per week Types: Marijuana Family History Problem Relation Age of Onset ??? Hypertension Father ??? High Cholesterol Father ??? Diabetes Maternal Grandmother ??? Diabetes Paternal Grandmother ??? Stroke Paternal Grandmother ??? Asthma Maternal Grandfather ??? Diabetes Maternal Grandfather ??? High Cholesterol Maternal Grandfather ??? Heart Disease Maternal Grandfather ??? Stroke Maternal Grandfather ??? Celiac Disease Neg Hx ??? Inflammatory Bowel Disease Neg Hx ??? Esophageal Cancer Neg Hx ??? Stomach Cancer Neg Hx ??? Pancreatic Cancer Neg Hx ??? Colon Cancer Neg Hx ??? Raúl's Disease Neg Hx ??? Hemochromatosis Neg Hx BP (!) 148/65 Pulse 82 Temp 99 ??F (37.2 ??C) Resp 18 SpO2 99% Physical Exam Constitutional: General: He is not in acute distress. Appearance: He is well-developed. He is not diaphoretic. HENT: Head: Normocephalic and atraumatic. Jaw: No trismus. Right Ear: Tympanic membrane, ear canal and external ear normal. Left Ear: Tympanic membrane, ear canal and external ear normal. Mouth/Throat: Mouth: Mucous membranes are moist. No oral lesions. Pharynx: Uvula midline. Posterior oropharyngeal erythema present. No oropharyngeal exudate or uvulaswelling. Tonsils: No tonsillar abscesses. Eyes: Conjunctiva/sclera: Conjunctivae normal. Neck: Musculoskeletal: Normal range of motion and neck supple. Pulmonary: Effort: Pulmonary effort is normal. No respiratory distress. Breath sounds: No stridor. No wheezing, rhonchi or rales. Lymphadenopathy: Cervical: No cervical adenopathy. Skin: General: Skin is warm and dry. Neurological: Mental Status: He is alert and oriented to person, place, and time. Psychiatric: Behavior: Behavior normal. Consult orders: None PCP: MARY MIX No results found for this visit on 08/18/20. Radiology orders: None Imaging Results None No orders to display Procedures URGENT CARE COURSE A medical screening exam was performed. ASSESSMENT AND PLAN Final diagnoses: Cough Upper respiratory tract infection, unspecified type COVID pending Quarantine discussed. Sx treatment for presumed viral illness. Reviewed symptomatic treatment and indications for follow up. See discharge instructions. No supervision required. DISPOSITION: Discharged The patient's pain was managed to an adequate level weighing risk vs. benefit of further medications. Upon departure from [facility], the patient's pain was 3 on a zero to ten scale. Any further pain treatment will be at the discretion of the provider following up with the patient based on their clinical assessment . Condition at departure from the [facility] : Stable MDM 08/18/2020 19:57 Deidre Cuellar RN - 08/18/2020 3196 EDT Reporting PTSD and chronic depression. Reporting that he hasn't seen his counselor since covid started. Spoke with patient about reaching out to get them for potential televideo visit and or speaking with the provider here about a referral to a new place. Patient denies current plan to self harm or SIplan. eidre Fletcher RN - 08/18/2020 1802 EDT Reporting that he started with cough, congestion, chills, SOB. Denies vomiting or diarrhea mbar Saleem RN - 08/18/2020 1800 EDT Bed: UC16 Expected date: Expected time: Means of arrival: Comments: Clean @ 1733 documented in this encounter Plan of Treatment Not on filedocumented as of this encounter Goals Goal Patient Goal Associated Recent Patient-Stated? Author Type Problems Progress Blood Pressure Blood Pressure Hypertensive 145/96 No Vosb urg, < 130/80 disorder (06/04/2022 SHIRA Boyd 13:12 EDT) Being Active General Severe obesity No Jesse, with body mass Telisa, LP N index (BMI) of 35.0 to 39.9 with comorbidity ([facility]) Note: Being Active Goal: Go for a walk 4 times per week for 20 minutes. The patient's confidence level, sources of support and barriers to change were assessed. Pertinent information is documented in the visit encounter. Counseling was provided to assess readiness, confidence and/or barriers to self-care. To learn more about your health please [facility] Wellness Resource documented as of this encounter Procedures Procedure Name Priority Date/Time Associated Comments Diagnosis DO NOT ORDER Today 08/18/2020 19:19 Cough Results for this STANDALONE - BROAD EDT procedure are in COVID TEST the results section. COVID-19 TESTING Routine 08/18/2020 19:19 Cough Results for this EDT procedure are i n the results section. documented in this encounter Results DO NOT ORDER STANDALONE - BROAD COVID TEST (08/18/2020 19:19 EDT) COVID-19 rt-PCR NEGATIVE Negative [facility] Result Comment: LABORATORY 2019-novel Coronavirus (2019 -nCoV) not detected by the qRT-PCR assay. Consider testing for other respiratory viruses or re-collecting for 2019-nCoV testing. Note: Optimum timing for peak viral levels du ring infections caused by 20 -nCoV have not been determined. Collection of multiple specimens from the same patient may be necessary to detect the virus. Limitations Positive results are indicat tyler of active infection with SARS-CoV-2 but do not rule out bacterial infection or co-infection with other viruses. The agent detected may not be the definite cause of diseas e. In addition, detection of viral RNA may not indicate the presence of infectious virus or that SARS-CoV-2 is the causative agent for clinical symptoms. Negative results do not prec lude SARS-CoV-2 infection and should not be used as the sole basis for patient management decisions. Negative results must be combined with clinical observations, patient his tory, and epidemiological in formation. False negative results may also occur if amplification inhibitors are present in the specimen or if inadequate numbers of organisms are present in the specimen. Op timum specimen types and helga ing for peak viral levels during infections caused by SARS-CoV-2 have not been fully determined. Collection of multiple specimens (types and time points) from the same patient may be necessary to detect the virus. The test was validated for u with upper respiratory specimens obtained via nasopharyngeal or oropharyngeal swabs in VTM, UTM, M4, M5, M6, saline, and MTM media. The performance of this test has not be en established for other spe cimens. Specimens collected using other FDA recommended Specimen Collection Materials listed in the FDA COVID-19 [employer] communication (February 11, 2020) are pr ocessed with the caveat that they were not all validated for use with this test and the result must be interpreted in this context. Furthermore, a false negative results may occur if a specimen is improperly collected, transported or handled. If the virus mutates in the RT-PCR target region, SARS-CoV-2 may not be detected or may be detected less predictably. Inhibitors or other types of interference may produce a false negative result. An interference study evaluating the effect of common cold medications was not performed. This test is not FDA-cleared but its performance characteristics were established by our CLIA-certified, CAP-accredited, high complexity laboratory in accordance with CLIA regulations, College of [employer] an Pathologists (CAP) guidel belkys (Feb 04, 2020), and FDA guidance (Jan 16, 2020). This test is only for use un stephanie the Food and Drug Administration's Emergency Use Authorization. Specimen Swab - Entire nasopharynx (body structur e) Performing Organization Address City/State/ZIP Code Phon e Number [facility] [place], [place] COVID-19 TESTING (08/18/2020 19:19 EDT) COVID-19 rt-PCR NEGATIVE Negative [facility] Result Comment: LABORATORY 2019-novel Coronavirus (2019 -nCoV) not detected by the qRT-PCR assay. Consider testing for other respiratory viruses or re-collecting for 2019-nCoV testing. Note: Optimum timing for peak viral levels du ring infections caused by 20 -nCoV have not been determined. Collection of multiple specimens from the same patient may be necessary to detect the virus. Limitations Positive results are indicat tyler of active infection with SARS-CoV-2 but do not rule out bacterial infection or co-infection with other viruses. The agent detected may not be the definite cause of diseas e. In addition, detection of viral RNA may not indicate the presence of infectious virus or that SARS-CoV-2 is the causative agent for clinical symptoms. Negative results do not prec lude SARS-CoV-2 infection and should not be used as the sole basis for patient management decisions. Negative results must be combined with clinical observations, patient his tory, and epidemiological in formation. False negative results may also occur if amplification inhibitors are present in the specimen or if inadequate numbers of organisms are present in the specimen. Op timum specimen types and helga ing for peak viral levels during infections caused by SARS-CoV-2 have not been fully determined. Collection of multiple specimens (types and time points) from the same patient may be necessary to detect the virus. The test was validated for u se with upper respiratory specimens obtained via nasopharyngeal or oropharyngeal swabs in VTM, UTM, M4, M5, M6, saline, and MTM media. The performance of this test has not be en established for other spe cimens. Specimens collected using other FDA recommended Specimen Collection Materials listed in the FDA COVID-19 [employer] communication (February 11, 2020) are pr ocessed with the caveat that they were not all validated for use with this test and the result must be interpreted in this context. Furthermore, a false negative results may occur if a specimen is improperly collected, transported or handled. If the virus mutates in the RT-PCR target region, SARS-CoV-2 may not be detected or may be detected less predictably. Inhibitors or other types of interference may produce a false negative result. An interference study evaluating the effect of common cold medications was not performed. This test is not FDA-cleared but its performance characteristics were established by our CLIA-certified, CAP-accredited, high complexity laboratory in accordance with CLIA regulations, College of [employer] an Pathologists (CAP) guidel belkys (Feb 04, 2020), and FDA guidance (Jan 16, 2020). This test is only for use un stephanie the Food and Drug Administration's Emergency Use Authorization. Performing Lab [facility] LABORATORY SERVICES Specimen Swab - Entire nasopharynx (body structur e) Performing Organization Address City/State/ZIP Code Phon e Number [facility] [address] [place] [address] SERVICES [facility] [place], [place] documented in this encounter Visit Diagnoses Diagnosis Cough - Primary Upper respiratory tract infection, unspe cified type documented in this encounter Discontinued Medications Medication Sig Discontinue Reason Start Date End Date emtricitabine-rilpivirine Take 1 Tab by mouth Therapy completed 08/18/2020 -tenofovir disprox daily. (COMPLERA) 200-25-300 mg per tablet documented as of this encounter Additional Health Concerns Infection Onset Date Last Indicated Resolved Time R/O COVID-19 08/18/2020 08/18/2020 08/23/2020 22:16 EDT documented as of this encounter Care Teams Burrer Machine Relationship Specialty Start Date End Date Mary Mix MD PCP - General Family Medicine - Primary 05/18/20 1 [address] [place] [id number] documented as of this encounter
--- OUTSIDE RECORDS SUMMARY | 2022-06-05 06:49 | XMS_ITS | Encounter Summary ---
:1990 Author Organization [facility] Address [address] [place] [address] Care Team Providers Name Role Phone Rogelio Dominguez MD Primary Care Provider Reason for Visit Reason Onset Date Comments Appointment Related 03/07/2021 Encounter Details Date Type Department Care Team Description 03/07/[address] [facility] Therapist, Appointme nt Related Rehabilitation Therapy - Physical, PT [place] [address] [facility] [id number] Social History Tobacco Use Types Packs/Day Years [...] this encounter Miscellaneous Notes Telephone Encounter - Lauren Donahue - 03/07/2021 1327 EDT Telephone Information for Cancelled Appointments The patient called to cancel their New Patient appointment with Elmo Montalvo on 03/08/21 at 4pm due to conflict in schedule. The patient has rescheduled for earlier in the day (9:30). Lauren Donahue 03/07/2021 documented in this encounter Plan of Treatment Not on filedocumented as of this encounter Goals Goal Patient Goal Associated Recent Patient-Stated? Author Type Problems Progress Blood Pressure Blood Pressure Hypertensive 145/96 No Vosb urg, < 130/80 disorder (06/04/2022 SHIRA Boyd 13:12 EDT) Being Active General Severe obesity No Jesse, with body mass TelALLIE german index (BMI) of 35.0 to 39.9 with comorbidity ([facility]) Note: Being Active Goal: Go [...] Diagnoses Not on filedocumented in this encounter Additional Health Concerns Infection Onset Date Last Indicated Resolved Time COVID-19 02/27/2021 02/27/2021 03/29/2021 22:15 EDT documented as of this encounter Care Teams Continuous Miner Operator Relationship Specialty Start Date End Date Rogelio Dominguez MD PCP - General Family Medicine - Primary 02/02/[address] [place] [id number] documented as of this encounter
--- OUTSIDE RECORDS SUMMARY | 2022-06-05 06:49 | XMS_ITS | Encounter Summary ---
:1990 Author Organization [facility] Address [address] [place] [address] Care Team Providers Name Role Phone Rogelio Dominguez MD Primary Care Provider Reason for Visit Reason Onset Date Comments COVID-19 02/28/2021 Encounter Details Date Type Department Care Team Description 02/28/2021 Telephone [facility] Rogelio Raza MD COVID-[id number] [place] [address] [phone] Social History Tobacco Use Types Packs/Day Years [...] this encounter Miscellaneous Notes Telephone Encounter - Travis Barrios RN - 02/28/2021 1415 EDT Call to Patient, saw results via [employer]. Canceled 03/06/21 second testing Others in the home already positive Symptoms started: 02/25/21 Nasal congestion Last day of quarantine: 03/07/21 Return to work: 03/08/21 [place] [facility] will be contacting you to review guidelines as well You can always do a video visit with our office or go to UC/ED PRN Patient verbalized understanding with no barriers to learning and will follow-up as advised. TRAVIS BARRIOS RN 02/28/2021 14:26 elephone Encounter - Clyde Taylor - 02/28/2021 1405 EDT Reason for Call: Positive COVID test Summary/Symptoms: Received positive test result from [facility] lab Onset and Duration? Today Appointment Offered? N/A Clyde Taylor 02/28/2021 14:06 documented in this encounter Plan of Treatment [...] 35.0 to 39.9 with comorbidity ([facility]) Note: Being Active Goal: Go for a walk 4 times per week for 20 minutes. The patient's confidence level, sources of support and barriers to change were assessed. Pertinent information is documented in the visit encounter. Counseling was provided to assess readiness, confidence and/or barriers to self-care. To learn more about your health please v isit: [facility] Wellness Resource documented as of this encounter Visit Diagnoses Not on filedocumented in this encounter Additional Health Concerns Infection Onset Date Last Indicated Resolved Time R/O COVID-19 02/27/2021 02/27/2021 03/04/2021 22:15 EDT COVID-19 02/27/2021 02/27/2021 03/29/2021 22:15 EDT documented as of this encounter Care Teams Nuclear Waste Process Operator Relationship Specialty Start Date End Date Rogelio Dominguez MD PCP - General Family Medicine - Primary 02/02/[address] [place] [id number] documented as of this encounter
--- OUTSIDE RECORDS SUMMARY | 2022-06-05 06:49 | XMS_ITS | Encounter Summary ---
:1990 Author Organization [facility] Address [address] [place] [address] Care Team Providers Name Role Phone Mary Kate Mcduffie MD Primary Care Provider Encounter Details Date Type Department Care Team Description 01/22/2020 Travel Social History Tobacco Use Types Packs/Day [...] on filedocumented in this encounter Care Teams Power Electronics Research Engineer Relationship Specialty Start Date End Date Mary Kate Mcduffie MD PCP - General Family Medicine - Primary 01/08/20 Care documented as of this encounter
--- OUTSIDE RECORDS SUMMARY | 2022-06-05 06:49 | XMS_ITS | Encounter Summary ---
:1990 Author Organization [facility] Address [address] [place] [address] Care Team Providers Name Role Phone None, Provider Primary Care Provider Unavailable Reason for Visit Reason Comments Fall Pt states that he slipped wh ile working aroun 0430, landed on his back, now my lower back is swelli ng and puffed out on each side. Pt also states he slammed L hand in bucket coal unloader door. +CSMTs to L hand. Good ROM to wrist and fingers. Hand Pain Encounter Details Date Type Department Care Team Description 09/29/2019 Emergency [facility] Kerrie Herrera Lef t hand pain (Primary Dx); Emergency Department PA-C Lumbar back pain - [facility] [address] [address] [address], [place] [address] (Wo rk) Social History Tobacco Use Types [...] Sign Reading Time Taken Comments Blood Pressure 139/70 09/29/2019 1040 EST Pulse 78 09/29/2019 1040 EST Temperature 36.8 ??C (98.2 ??F) 09/29/2019 1040 EST Respiratory Rate 15 09/29/2019 1040 EST Oxygen Saturation 99% 09/29/2019 1040 EST Inhaled Oxygen Concentration - - Weight 86.2 kg (190 lb) 09/29/2019 0832 EST Height - - Body Mass Index 28.89 08/07/2019 1518 EDT documented in this encounter Functional Status [...] documented as of this encounter Discharge Instructions InstructionsKerrie Herrera PA - 09/29/2019 You were evaluated in the Emergency Department. Your hand xray is normal. Keep your hand elevated when possible. Ice on and off throughout the day for the next 48 hours. Take Ibuprofen 600 mg every 6 hours for the first 48 hours, then as needed for pain. Take [id number] Tylenol as directed on the packaging as needed for pain. Your hand and back will likely be more sore over the next 1-2 days then should gradually improve. Increase your activity as tolerated. Return to the Emergency Department if you have fever, chest pain, difficulty breathing, nubmness/weakness in your legs, you lose control of your urine/bowels, your hand becomes cold/pale/numb or any other concerning symptoms. documented in this encounter Medications at Time of Discharge Medication Sig Dispensed Refills Start Date End Date acyclovir (ZOVIRAX) 200 2 tablets every 8 60 Cap 0 07/3102/08/2021 mg capsule hours for 10 days documented as of this encounter Discharge Disposition Disposition Code Departure Means Destination Home or Self Long-Term documented in this encounter ED Notes Kerrie Herrera PA - 09/29/2019 0904 EST DOS: 09/29/2019 Chief Complaint Patient presents with ??? Fall Pt states that he slipped while working aroun 0430, landed on his back, now my lower back is swelling and puffed out on each side. Pt also states he slammed L hand in bucket coal unloader door. +CSMTs Rupali hand. Good ROM to wrist and fingers. ??? Hand Pain HPI The patient is a 29 y.o. male who presents today with Fall (Pt states that he slipped while working aroun 0430, landed on his back, now my lower back is swelling and puffed out on each side. Pt also states he slammed L hand in bucket coal unloader door. +CSMTs to L hand. Good ROM to wrist and fingers. ) and Hand Pain HPI 29 yo M hx asthma, HTN, low back pain presents with left hand pain and low back pain. Pt states thismorning he was working and was holding onto a handle on the side of a truck when the truck door swung open crushing his left hand between the door and the handle. He had immediate onset of pain. Pain is worst across the knuckles of the hand. Pain is worse with movement of the hand. Some tingling in L index, middle and ring fingertips. 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 He has pain on both sides of low back, R>L and feels swollen/bruised. He has been able to walk without difficulty. No paresthesias or weakness of the legs. No bowel or bladder incontinence. No head strike or LOC. Has not taken any medication for pain. Review of Systems Review of Systems Eyes: Negative for visual disturbance. Respiratory: Negative for cough and shortness of breath. Cardiovascular: Negative for chest pain. Gastrointestinal: Negative for abdominal pain, diarrhea, nausea and vomiting. Musculoskeletal: Negative for neck pain. Skin: Negative for wound. Neurological: Negative for weakness and headaches. The patient's past medical, family and social history was reviewed and updated as needed. Allergies Allergen Reactions ??? Cats ??? Pollen Extracts Vital Signs Temp: 37 ??C (98.6 ??F) Temp src: Temporal Pulse: 87 Resp: 16 SpO2: 99 % BP: (!) 151/76 BP Device: BP Machine BP Cuff Location: Right arm O2 Device: None (Room air) Physical Exam Constitutional: He appears well-developed and well-nourished. No distress. HENT: Head: Normocephalic and atraumatic. Neck: Normal range of motion. Cardiovascular: Normal rate and regular rhythm. Pulmonary/Chest: Effort normal and breath sounds normal. Abdominal: Soft. There is no tenderness. Musculoskeletal: He exhibits no edema. Left hand with mild edema dorsal hand from 1st-3rd metacarpals. No ecchymosis or wounds. Pt is able to fully straighten all fingers. Flexion at all joints intact but limited to 45 degrees at 2nd-4th MCPs due to pain. No rotation of fingers. Tenderness to 1st metatarsal, 2nd metatarsal and proximal phalanx, 3rd metatarsal and entire digit and 4th proximal phalanx. L wrist nontender including no snuffbox ttp and ROM intact. L elbow and shoulder nontender. Mild bilateral lumbar paraspinal tenderness, R>L without any edema or overlying skin changes. No midline spine ttp. AROM bilateral legs intact. Ambulatory without difficulty. Neurological: He is alert. Strength and sensation intact throughout all extremities, including sensation throughout L hand. Skin: Skin is warm and dry. He is not diaphoretic. Psychiatric: He has a normal mood and affect. Nursing note and vitals reviewed. RESULTS EKG orders: None Radiology orders: XR HAND LEFT 3 OR MORE VIEWS Imaging Reviewed. I have independently reviewed the images. There are no significant abnormalities Procedures ED COURSE A medical screening exam was performed. 29 yo M hx asthma, HTN, low back pain presents with left hand pain and low back pain. L hand fracture vs sprain vs contusion. Plan for xray L hand. Low back pain with mild bilateral lumbar tenderness. No midline spine tenderness, low risk mechanism and no neuro symptoms, doubt fracture and do not suspect cauda/cord compression. No imaging indicated of low back at this time. Of note pt had a yellow icon indicating a positive mental health screening. Pt states he has a long standing history of depression and has intermittently thought about suicide chronically but has no plan or intent. He has a therapist that he follows with closely. He states if he did develop thoughts or plans to harm himself he has people he would reach out to. He has no acute mental health concerns today. Hand xray negative. Will discharge with plan for NSAIDs, RICE and increase activity as tolerated. Patient educated on concerning symptoms for which to return. Final diagnoses: Left hand pain Lumbar back pain DISPOSITION: Discharged The patient's pain was managed to an adequate level weighing risk vs. benefit of further medications. Upon departure from the Emergency Department, the patient's pain was 6 on a zero to ten scale. Any further pain treatment will be at the discretion of the provider following up with the patient based on their clinical assessment. Condition at departure from the Emergency Department: Good PCP: Provider None MDM Number of Diagnoses or Management Options Left hand pain: minor, established and improving, established and worsening, new and does not require workup and new and requires workup Lumbar back pain: minor, established and improving, established and worsening, new and does not require workup and new and requires workup Amount and/or Complexity of Data Reviewed Tests in the radiology section of CPT??: ordered Independent visualization of images, tracings, or specimens: yes Josué Vasquez was available for supervision. 09/29/2019 10:50 No flowsheet data found. documented in this encounter Plan of Treatment Not on filedocumented as of this encounter Goals Goal Patient Goal Associated Recent Patient-Stated? Author Type Problems Progress Blood Pressure Blood Pressure Hypertensive 145/96 No Vosb urg, < 130/80 disorder (06/04/2022 SHIRA Boyd 13:12 EDT) documented as of this encounter Procedures Procedure Name Priority Date/Time Associated Diagnosis Comme nts XR HAND LEFT 3 OR STAT 09/29/2019 9:22 EST Res ults for this MORE VIEWS procedure are i n the results section. documented in this encounter Results XR HAND LEFT 3 OR MORE VIEWS (09/29/2019 9:22 EST) Anatomical Region Laterality Modality Upper Extremities Left Computed Radiography Specimen Impressions [facility] - 09/29/2019 13:43 EST Normal hand radiograph. I have personally reviewed the images an d the above interpretation and agree with the findings. Narrative [facility] - 09/29/2019 13:43 EST XR HAND LEFT 3 OR MORE VIEWS ??09/29/2019 9:16 AM Signs and Symptoms/Comments: L hand pain Comparison: Contralateral (right) hand r adiograph 10/04/2011 Technique: PA, lateral, and oblique views of the le ft hand were obtained. Findings: No fractures are identified. Alignment i s anatomic. The joint spaces are preserved. There is no evidence of osteoarthrosis. Soft tissues are grossly unremarkable. Procedure Note Shane Flores MD - 09/29/2019 XR HAND LEFT 3 OR MORE VIEWS 09/29/2019 9:16 AM Signs and Symptoms/Comments: L hand pain Comparison: Contralateral (right) hand r adiograph 10/04/2011 Technique: PA, lateral, and oblique views of the le ft hand were obtained. Findings: No fractures are identified. Alignment i s anatomic. The joint spaces are preserved. There is no evidence of osteoarthrosis. Soft tissues are grossly unremarkable. IMPRESSION Normal hand radiograph. I have personally reviewed the images an d the above interpretation and agree with the findings. Performing Organization Address City/State/ZIP Code Phon e Number [facility] documented in this encounter Visit Diagnoses Diagnosis Left hand pain - Primary Pain in limb Lumbar back pain Lumbago documented in this encounter Administered Medications Inactive Administered Medications - up to 3 most recent administrations Medication Order MAR Action Action Date Dose Rate Site acetaminophen (TYLENOL) tablet Given 09/29/2019 9:06 EST 1,000 m g 1,000 mg 1,000 mg, oral, NOW X1, 1 dose, On Sat09/29/19 at 0915, STAT ibuprofen (MOTRIN) tablet 600 mg Given 09/29/2019 10:45 EST 600 mg 600 mg, oral, NOW X1, 1 dose, On Sat09/29/19 at 1045, STAT documented in this encounter Active and Recently Administered Medications Times are shown in EST. Scheduled Medication Order 09/27/2019 09/28/2019 09/29/2019 acetaminophen (TYLENOL) tablet 1,000 mg (COMPLETED) 905 (Given - Provider: Nelly Jones RN) 1,000 mg, oral, NOW X1, 1 dose, Sat09/29/19 at 0915, STAT ibuprofen (MOTRIN) tablet 600 mg (COMPLETED) 1045 (Given - Provider: Hieu Arnold RN) 600 mg, oral, NOW X1, 1 dose, Sat09/29/19 at 1045, STAT documented in this encounter Care Teams Hat Brim Curler Relationship Specialty Start Date End Date None, Provider PCP - General 09/29/19 01/07/20 documented as of this encounter
--- OUTSIDE RECORDS SUMMARY | 2022-06-05 06:49 | XMS_ITS | Clinical Summary ---
:1990 Author Organization [facility] Address [address] [place] [address] Care Team Providers Name Role Phone Madi Cook NP Primary Care Provider Allergies Active Allergy Reactions Severity Noted Date Comments Cats 09/04/2010 Pollen Extracts 10/16/2009 Medications Medication Sig Dispensed Refills Start Date End Date Status methylPREDNISolone follow package 1 Pack 0 02/02/2021 Active (MEDROL, ILIANA,) 4 mg directions tablet Additional Information Patient not taking. Reported on 11/03/2021 naproxen sodium (ALEVE) 220 mg Take by mouth. 0 Active capsule acetaminophen (TYLENOL) 500 mg Take 500 mg by mouth 0 Active tablet every 6 hours as needed for Pain. methocarbamoL (ROBAXIN) 750 mg Take 1 Tab by mouth 15 Tab 0 02/08/2021 Active tabletIndications: Acute every 6 hours as needed right-sided low back pain with for Muscle Spasms. right-sided sciatica Additional Information Patient not taking. Reported on 11/03/2021 gabapentin (NEURONTIN) 300 mg Take 1 Cap by mouth 3 90 Cap 0 02/16/2021 Active capsule times daily. Additional Information Patient not taking. Reported on 11/03/2021 naproxen (NAPROSYN) 500 mg Take 1 Tab by mouth 2 times 28 Tab 0 02/16/2021 Active tablet daily with breakfast and dinner. Additional Information Patient not taking. Reported on 11/03/2021 LIDOCAINE PATCH REMOVAL Apply 1 Each topically at bedtime. 0 Active Active Problems Problem Noted Date Does not have health insurance 09/05/2020 Alcohol abuse, daily use 09/05/2020 Acute bilateral low back pain with bilateral sciatica 02/04/2017 Right low back pain 01/28/2017 Acanthosis nigricans 12/21/2009 Hypertensive disorder 08/18/2009 Depression 06/06/2005 Severe obesity with body mass index (BMI) of 35.0 to 3 9.9 with comorbidity 09/27/2004 ([facility]) Overview: Insulin resistance/metabolic syndrome Other activity 06/18/2003 Overview: Case management. DCF custody () Auto-update: regulatory requirement Asthma Metabolic syndrome X Resolved Problems Problem Noted Date Resolved Date Arthritis 03/13/2018 03/13/2018 GI bleed 11/29/2013 02/04/2017 Abdominal pain 03/04/2013 02/04/2017 Encounters Date Type Specialty Care Team Description 06/04/2022 [facility] Ramsey Godinez PA-C Chronic bilateral low back pain with right-side d sciatica (Primary Dx) from Last 3 Months Immunizations Name Administration Dates Next Due DTP Vaccine IM 02/11/2009, 06/20/2006, 04/06/1997, 09/19/1993, 1992, 1992, 1992 DTaP Vaccine (INFANRIX) <7YO IM 04/06/1997 Hepatitis B 10/02/2002, 04/29/2002, 04/25/2000 Hepatitis B Vaccine (HEPLISAV-B) Adult 05/16/2020, 0 IM 2 Dose Hib 06/22/1993, 1992, 1992, 1992 Influenza (split) 08/09/2009 Influenza H1N1 IM 10/06/2009 Influenza Vaccine =>3yo Split 09/04/2010 Preservative Free IM MMR Vaccine SQ 04/06/1997, 03/28/1993 Meningococcal Conjugate (MCV4) Vaccine 02/11/2009 (MENACTRA) 4-Valent IM PPD Skin Test Placement 01/23/2000 PolioVirus Vaccine OPV Oral 04/06/1997, 09/19/1993, 07/19/19 92, 1992 Tdap Vaccine =>7YO IM 04/10/2020, 07/31/2019, 03/28/2014, 06/20/2006 Surgical History Surgery Date Site/Laterality Comments TYMPANOSTOMY TUBE PLACEMENT Medical History Medical History Date Comments Asthma Chicken pox As a child Depression PTSD (post-traumatic stress disorder) Family History Medical History Relation Name Comments High Cholesterol Father Hypertension Father Alcohol Abuse Maternal Grandfather Diabetes Maternal Grandfather Heart Disease Maternal Grandfather heart attac k High Cholesterol Maternal Grandfather Hypertension Maternal Grandfather Stroke Maternal Grandfather Diabetes Maternal Grandmother Hypertension Maternal Grandmother Depression Mother Diabetes Paternal Grandfather Hypertension Paternal Grandfather Diabetes Paternal Grandmother Heart Disease Paternal Grandmother heart attac k Hypertension Paternal Grandmother Depression Sister Celiac Disease Neg Hx Colon Cancer Neg Hx Esophageal Cancer Neg Hx Hemochromatosis Neg Hx Inflammatory Bowel Disease Neg Hx Pancreatic Cancer Neg Hx Stomach Cancer Neg Hx Raúl's Disease Neg Hx Relation Name Status Comments Father Maternal Grandfather Maternal Grandmother Mother Paternal Grandfather Paternal Grandmother Sister Alive Social History Tobacco Use Types Packs/Day Years Used Date Current Every Day Smoker Cigarettes 1 7 Smokeless Tobacco: Never Used Tobacco Cessation: Ready to Quit: No; Co unseling Given: Yes Comments: off and on for 7 years Alcohol Use Standard Drinks/Week Comments Yes 35 (1 standard drink = 0.6 oz pure alcoh ol) Sex Assigned at Date Recorded Male 09/05/2020 10:43 EDT Last Filed Vital Signs Vital Sign Reading Time Taken Comments Blood Pressure 145/96 06/04/2022 1312 EDT Pulse 84 06/04/2022 1312 EDT Temperature 36.7 ??C (98.1 ??F) 06/04/2022 1312 EDT scanner Respiratory Rate 18 06/04/2022 1312 EDT Oxygen Saturation 97% 06/04/2022 1312 EDT Inhaled Oxygen Concentration - - Weight 110.2 kg (243 lb) 11/24/2021 1434 EST Height 165.1 cm (5' 5) 02/16/2021 0954 EDT Body Mass Index 40.44 02/16/2021 0954 EDT Plan of Treatment Health Maintenance Due Date Last Done Comments Asthma Action Plan 1992 Lung Function Test (Spirometry) 1992 Social Determinants Of Health 1992 (SDOH) COVID-19 Vaccine (#1) 1992 Pneumococcal Immunization (1 - 1998 PCV) Preventive Care Visit 2010 Behavioral Health Screen 09/05/2021 09/05/2020 Influenza Immunization (Adult) 08/18/2022 09/04/2010, 08/09 (#1) Tetanus (Adult) Immunization 04/10/2030 04/10/2020, 019, 03/28/2014, Additional history exists Pertussis (Adult) Immunization Completed 04/10/2020, 07/31, 03/28/2014, Additional history exists HIV Screening Completed 05/16/2020, 04/09/2020, 07/27/2019, Additional history exists Hepatitis C Screen Completed 05/16/2020, 07/27/2019, 12/01/2013 Goals Goal Patient Goal Associated Recent Patient-Stated? Author Type Problems Progress Blood Pressure Blood Pressure Hypertensive 145/96 No Vosb urg, < 130/80 disorder (06/04/2022 SHIRA Boyd 13:12 EDT) Being Active General Severe obesity No Jesse, with body mass Telisa, LP N index (BMI) of 35.0 to 39.9 with comorbidity ([facility]) Note: Being Active Goal: Go for a walk 4 times per week for 20 minutes. The patient's confidence level, sources of support and barriers to change were assessed. Pertinent information is documented in the visit encounter. Counseling was provided to assess readiness, confidence and/or barriers to self-care. To learn more about your health please v isit: [facility] Wellness Resource Insurance Payer Benefit Plan / Subscriber ID Effective Dates Phone Addre ss Type Group [facility] [id number] 2021-Present [phone] [place] [id number] Zeeshan Gonzalez Jr. Personal/Family Self 1990 [address]) [place] [address] Zeeshan Gonzalez Jr. Personal/Family Self 1990 [address] [place] [address] Zeeshan Gonzalez Jr. Personal/Family Self 1990 [address] [place] [address] Advance Directives For more information, please contact: [phone] Documents on File Type Date Recorded Patient Food Safety Director Explanati on Advance Directive 03/13/2018 15:11 Care Teams Lead Web Application Developer Relationship Specialty Start Date End Date Madi Cook, MUD TANK OPERATOR PCP - General Family Medicine - Primary 11/03/[address] [place] [address] [phone]
--- OUTSIDE RECORDS SUMMARY | 2022-06-05 06:49 | XMS_ITS | Encounter Summary ---
:1990 Author Organization [facility] Address [address] [place] [address] Care Team Providers Name Role Phone Rogelio Dominguez MD Primary Care Provider Reason for Visit Reason Onset Date Comments Appointment Related 03/14/2021 Encounter Details Date Type Department Care Team Description 03/14/2021 Telephone [facility] Therapy, Physical Appo intment Related Rehabilitation Therapy - [address] [address] Social History Tobacco Use Types Packs/Day [...] this encounter Miscellaneous Notes Telephone Encounter - Salome Gomez - 03/14/2021 0922 EDT Images from the original note were not included. documented in this encounter Plan of Treatment Not on filedocumented as of this encounter Goals Goal Patient Goal Associated Recent Patient-Stated? Author Type Problems Progress Blood Pressure Blood Pressure Hypertensive 145/96 No Vosb urg, < 130/80 disorder (06/04/2022 SHIRA Boyd 13:12 EDT) Being Active General Severe obesity No Jesse, with body mass Telisa LP N index (BMI) of 35.0 to 39.9 with comorbidity ([facility]) Note: Being Active Goal: Go for a walk 4 times per week for 20 minutes. The patient's confidence level, sources of support and barriers to change were assessed. Pertinent information is documented in the visit encounter. Counseling was provided to assess readiness, confidence and/or barriers to self-care. To learn more about your health please v isit: [facility] Wellness Resource documented as of this encounter Visit Diagnoses Not on filedocumented in this encounter Additional Health Concerns Infection Onset Date Last Indicated Resolved Time COVID-19 02/27/2021 02/27/2021 03/29/2021 22:15 EDT documented as of this encounter Care Teams Dynamometer Tuner Relationship Specialty Start Date End Date Rogelio Dominguez MD PCP - General Family Medicine - Primary 02/02/[address] [place] [id number] documented as of this encounter
--- OUTSIDE RECORDS SUMMARY | 2022-06-05 06:49 | XMS_ITS | Encounter Summary ---
:1990 Author Organization [facility] Address [address] [place] [address] Care Team Providers Name Role Phone Mary Kate Mcduffie MD Primary Care Provider Beverly Mix MD Primary Care Provider Reason for Visit Reason Onset Date Comments Pharmacy 05/04/2020 Encounter Details Date Type Department Care Team Description 05/04/2020 Telephone [facility] Kerrie Corrales NP Pharmacy Infectious Disease [address] [place], [place] [id number] [place] [phone] (Wo rk) Social History Tobacco Use [...] this encounter Miscellaneous Notes Telephone Encounter - Crystal Christensen - 05/04/2020 0858 EDT Higinio from [facility] states that they have tried to reach patient several times. They need to update insurance information. No answer to phone calls, and cannot leave message. Higinio can be reached at [phone]. documented in this encounter Plan of Treatment Not on filedocumented as of this encounter Goals Goal Patient Goal Associated Recent Patient-Stated? Author Type Problems Progress Blood Pressure Blood Pressure Hypertensive 145/96 No Vosb urg, < 130/80 disorder (06/04/2022 SHIRA Boyd 13:12 EDT) Being Active General Severe obesity No Jesse, with body mass TelisaALLIE index (BMI) of 35.0 to 39.9 with comorbidity ([facility]) Note: Being Active Goal: Go for a walk 4 times per week for 20 minutes. The patient's confidence level, sources of support and barriers to change were assessed. Pertinent information is documented in the visit encounter. Counseling was provided to assess readiness, confidence and/or barriers to self-care. To learn more about your health please v isit: [facility] Wellness Resource documented as of this encounter Visit Diagnoses Not on filedocumented in this encounter Care Teams Game Attendant Relationship Specialty Start Date End Date Mary Kate Mcduffie MD PCP - General Family Medicine - Primary 01/08/20 Care Beverly Mix MD PCP - General Family Medicine - Primary 05/18/20 1 [address] [phone] documented as of this encounter
--- OUTSIDE RECORDS SUMMARY | 2022-06-05 06:49 | XMS_ITS | Encounter Summary ---
:1990 Author Organization [facility] Address [address] [place] [address] Care Team Providers Name Role Phone Rogelio Dominguez MD Primary Care Provider Reason for Visit Reason Comments Leg Pain Encounter Details Date Type Department Care Team Description 02/16/2021 Office Visit [facility] Rhonda Guerrero ic right-sided Family Medicine - MD Mercedes low back pain with [address] right-sided sciatica [address] [place] [phone] (Primary Dx) [place] [address] [phone] Social History Tobacco Use Types Packs/Day Years [...] / COVID-19? documented as of this encounter Last Filed Vital Signs Vital Sign Reading Time Taken Comments Blood Pressure 144/96 02/16/2021 0954 EDT Pulse 84 02/16/2021 0954 EDT Temperature - - Respiratory Rate - - Oxygen Saturation - - Inhaled Oxygen Concentration - - Weight 108 kg (238 lb) 02/16/2021 0954 EDT Height 165.1 cm (5' 5) 02/16/2021 0954 EDT Body Mass Index 39.61 02/16/2021 0954 EDT documented in this encounter [...] as of this encounter Patient Instructions Patient InstructionsRhonda Guerrero - 02/16/2021 9:45 EDT Start gabapentin 1 tab, after three days can add a dose in morning and after three days can add another dose at noon documented in this encounter Ordered Prescriptions Prescription Sig Dispensed Refills Start Date End Date naproxen (NAPROSYN) 500 Take 1 Tab by mouth 28 Tab 0 11/2020 mg tablet 2 times daily with breakfast and dinner. gabapentin (NEURONTIN) Take 1 Cap by mouth 90 Cap 0 11/2020 300 mg capsule 3 times daily. methocarbamoL (ROBAXIN) Take 1 Tab by mouth 90 Tab 0 11/202012/27/2021 750 mg tablet 3 times daily. documented in this encounter Progress Notes Brenda Degroot MD - 02/16/2021 0945 EDT Attestation statement for office patient seen by attending: I saw and examined the patient on the day of this service and agree with the findings and plan of care documented in the resident's/fellow's note. Brenda Degroot MD Family Medicine Attending 02/20/2021 17:51 honda Guerrero - 02/16/2021 0945 EDT Family Medicine Office Visit Assessment & Plan Diagnoses and all orders for this visit: Chronic right-sided low back pain with right-sided sciatica: Exam consistent with lumbosacral radiculopathy 2/2 trauma, likely at level L5 or S1. Continue robaxin, start gabapentin - counseled about sedating medications. 2 week trial of naproxen though counseled on risks of NSAIDs in setting of prior PUD and ongoing alcohol use. If does not improve with 4-8 weeks of PT consider MRI. - gabapentin (NEURONTIN) 300 mg capsule - naproxen (NAPROSYN) 500 mg tablet - methocarbamoL (ROBAXIN) 750 mg tablet Return in about 4 weeks (around 03/16/2021) for ROV - back pain/sciatica. Patient education was direct. Barriers were assessed and addressed as needed. Subjective Zeeshan Gonzalez Jr. is a 30 y.o. male presenting with Leg Pain HPI 2 months ago injured back and sanchez ( per 02/02 note says happened two weeks prior but patient states worked for 1.5 months after injury) Has PT lined up but hasn't started yet Right leg - numb/burning/hurting Can't sit for more than 30 seconds Been taking muscle relaxant Endorses he is current alcoholic Has had a prior history of ulcer and BRBPR Muscle relaxants initially really helped but now drinking 2 lowells (9%) per night (8oz) to amplify effect of muscle relaxant. Having pain flare today (slept on it wrong?) and also drank two on the wayover Taking naproxen or ibuprofen No pain upon waking but worsens with movement, sitting Using Lidocaine and aspercreme patch but not much relief Bending forward makes it worse Data reviewed this visit: problem list/past medical history, current medications, allergies and recent Emergency Department visit record Review of Systems - See HPI Objective BP (!) 144/96 (BP Cuff Location: Right arm, BP Patient Position: Sitting, BP Cuff Sizes: Adult, large) Pulse 84 Ht 165.1 cm (65) Wt (!) 108 kg (238 lb) BMI 39.61 kg/m?? Physical Exam Constitutional: Appearance: He is well-developed and well-nourished. He is not diaphoretic. HENT: Head: No signs of injury. Eyes: General: No scleral icterus. Right eye: No discharge. Left eye: No discharge. Pulmonary: Effort: Pulmonary effort is normal. Musculoskeletal: General: No edema. Comments: Tenderness to palpation over greater sciatic notch Positive straight leg raise Hip flexion 5/5 Pain worsens with bending, not with extension Neurological: Mental Status: He is alert and oriented to person, place, and time. Comments: Patellar DTR 1+ bilaterally Soft touch sensation intact bilateral lateral ankle Psychiatric: Comments: Anxious, mild psychomotor agitation Rhonda Guerrero MD Family Medicine PGY3 Pager #[phone] Patient seen and discussed with Dr. Degroot. documented in this encounter Plan of Treatment [...] 35.0 to 39.9 with comorbidity ([facility]) Note: Being Active Goal: Go for a walk 4 times per week for 20 minutes. The patient's confidence level, sources of support and barriers to change were assessed. Pertinent information is documented in the visit encounter. Counseling was provided to assess readiness, confidence and/or barriers to self-care. To learn more about your health please v isit: [facility] Wellness Resource documented as of this encounter Visit Diagnoses Diagnosis Chronic right-sided low back pain with r ight-sided sciatica - Primary documented in this encounter Care Teams Automobile Locator Relationship Specialty Start Date End Date Rogelio Dominguez MD PCP - General Family Medicine - Primary 02/02/[address] [place] [phone] documented as of this encounter
--- OUTSIDE RECORDS SUMMARY | 2022-06-05 06:49 | XMS_ITS | Encounter Summary ---
:1990 Author Organization [facility] Address [address] [place] [address] Care Team Providers Name Role Phone Michael Sandoval MD Primary Care Provider [phone] Reason for Visit Reason Onset Date Comments Patient Outreach 08/05/2019 Encounter Details Date Type Department Care Team Description 08/05/2019 Telephone [facility] Berta Holm, Patient Outreach [address] [address] Social History Tobacco Use Types Packs/Day Years Used Date Current Every Day Smoker Cigarettes 1 7 Smokeless Tobacco: Never Used Tobacco Cessation: Ready to Quit: Yes; C ounseling Given: Yes Comments: off and on for 7 years Alcohol Use Standard Drinks/Week Comments Yes 7 (1 standard drink = 0.6 oz pure alcoho l) occasionally Alcohol Habits Answer Date Recorded How often do you have a drink containing alcohol? Not asked How many drinks containing alcohol do you have on a Not aske d typical day when you are drinking? How often do you have six or more drinks on one occasion? No t asked Comment: occasionally 09/04/2010 Sex Assigned at Date Recorded Male 09/05/2020 [...] this encounter Miscellaneous Notes Telephone Encounter - Martha Brown LPN - 08/05/2019 1618 EDT We are reaching out to all our patients to help those that use tobacco and offer assistance to quit.Free support is available to all [place] residents. Cutting back and or quitting tobacco is one of the most important steps to improving your health. I can mail you patient education about it. Patient Education Topic: Smoking cessation Method: Handout Taught to: Family Barriers: None Outcomes: verbalized understanding. MARTHA BROWN LPN 08/05/2019 16:21 documented in this encounter Plan of Treatment Not on filedocumented as of this encounter Goals Goal Patient Goal Associated Recent Patient-Stated? Author Type Problems Progress Blood Pressure Blood Pressure Hypertensive 145/96 No Vosb urg, < 130/80 disorder (06/04/2022 SHIRA Boyd 13:12 EDT) documented as of this encounter Visit Diagnoses Not on filedocumented in this encounter Care Teams Manuscripts Archivist Relationship Specialty Start Date End Date Michael Sandoval MD PCP - General 06/06/18 09/28/19 documented as of this encounter
--- OUTSIDE RECORDS SUMMARY | 2022-06-05 06:49 | XMS_ITS | Encounter Summary ---
:[address] [facility] Address [address] [place] [address] Care Team Providers Name Role Phone Michael Sandoval MD Primary Care Provider [phone] Encounter Details Date Type Department Care Team Description 08/07/2019 Travel Social History Tobacco Use Types Packs/Day [...] on filedocumented in this encounter Care Teams Wardrobe Attendant Relationship Specialty Start Date End Date Michael Sandoval MD PCP - General 06/06/18 09/28/19 documented as of this encounter
--- OUTSIDE RECORDS SUMMARY | 2022-06-05 06:49 | XMS_ITS | Encounter Summary ---
:1990 Author Organization [facility] Address [address] [place] [address] Care Team Providers Name Role Phone Rogelio Dominguez MD Primary Care Provider Reason for Visit Reason Onset Date Comments Appointment Related 03/14/2021 Encounter Details Date Type Department Care Team Description 03/14/2021 Telephone [facility] Therapy, Physical Appo intment Related Rehabilitation Therapy - [address] [address] Social History Tobacco Use Types [...] Telephone Encounter - Salome Gomez - 03/14/2021 0923 EDT I have returned this patient's call. I have left a message on his voice mail. I reminded him of his next appt on 03/21/21. documented in this encounter Plan of Treatment [...] 39.9 with comorbidity ([facility]) Note: Being Active Goal: Go for a walk 4 times per week for 20 minutes. The patient's confidence level, sources of support and barriers to change were assessed. Pertinent information is documented in the visit encounter. Counseling was provided to assess readiness, confidence and/or barriers to self-care. To learn more about your health please v isit: [facility] Wellness Resource documented as of this encounter Visit Diagnoses Not on filedocumented in this encounter Additional Health Concerns Infection Onset Date Last Indicated Resolved Time COVID-19 02/27/2021 02/27/2021 03/29/2021 22:15 EDT documented as of this encounter Care Teams Post Exchange Manager Relationship Specialty Start Date End Date Rogelio Dominguez MD PCP - General Family Medicine - Primary 02/02/21 [address] [place] [address] documented as of this encounter
--- OUTSIDE RECORDS SUMMARY | 2022-06-05 06:49 | XMS_ITS | Encounter Summary ---
:1990 Author Organization [facility] Address [address] [place] [address] Care Team Providers Name Role Phone Michael Sandoval MD Primary Care Provider [phone] Reason for Visit Reason Comments Suture / Staple Removal left foot, 3 sutures have be en in for two weeks Encounter Details Date Type Department Care Team Description 08/10/2019 Hospital Encounter [facility] Unknown, Vis it for suture Urgent Care - Ellen Dc MD removal (Primary Dx) [facility] [phone] [facility] (Work) [place] [address] Social History Tobacco Use Types Packs/Day Years [...] Sign Reading Time Taken Comments Blood Pressure 124/70 08/10/2019 1332 EDT Pulse 72 08/10/2019 1332 EDT Temperature 36.7 ??C (98.1 ??F) 08/10/2019 1332 EDT Respiratory Rate 18 08/10/2019 1332 EDT Oxygen Saturation - - Inhaled Oxygen Concentration - - Weight - [...] making decisions? documented as of this encounter Medications at Time of Discharge Medication Sig Dispensed Refills Start Date End Date acyclovir (ZOVIRAX) 200 2 tablets every 8 60 Cap 0 07/3102/08/2021 mg capsule hours for 10 days documented as of this encounter Discharge Disposition Disposition Code Departure Means Destination Home or Self Care documented in this encounter ED Notes Baldev Davila RN - 08/10/2019 1341 EDT 3 sutures removed from dorsum of left foot. Gavi Silver MD - 08/10/2019 1338 EDT Images from the original note were not included. DOS: 08/10/2019 Chief Complaint Patient presents with ??? Suture / Staple Removal left foot, 3 sutures have been in for two weeks The patient is a 29 y.o. male who presents today with Suture / Staple Removal (left foot, 3 sutures have been in for two weeks) The history is provided by the patient. Suture / Staple Removal Here for suture removal following placing sutures in the dorsum of the L foot on 07/31. Dropped a glass mirror on the foot. Has done well. No complaints of pain, swelling or drainage. No FB sensation. Review of Systems Musculoskeletal: Negative for gait problem. Skin: Positive for wound. Negative for color change. Neurological: Negative for weakness and numbness. No current facility-administered medications for this encounter. Current Outpatient Medications Medication Sig Dispense Refill ??? acyclovir (ZOVIRAX) 200 mg capsule 2 tablets every 8 hours for 10 days (Patient not taking: Reported on 08/10/2019) 60 Cap 0 Allergies Allergen Reactions ??? Cats ??? Pollen Extracts Patient Active Problem List Diagnosis Date Noted ??? Acute bilateral low back pain with bilateral sciatica 02/04/2017 ??? Right low back pain 01/28/2017 ??? Asthma ??? Metabolic syndrome X ??? Acanthosis nigricans 12/21/2009 ??? Hypertensive disorder 08/18/2009 ??? Depression 06/06/2005 ??? Obesity 09/27/2004 Insulin resistance/metabolic syndrome ??? Other activity 06/18/2003 Case management. DCF custody () Auto-update: regulatory requirement Past Medical History: Diagnosis Date ??? Asthma ??? Chicken pox As a child ??? Depression Social History Tobacco Use ??? Smoking status: Current Every Day Smoker Packs/day: 1.00 Years: 7.00 Pack years: 7.00 Types: Cigarettes ??? Smokeless tobacco: Never Used ??? Tobacco comment: off and on for 7 years Substance Use Topics ??? Alcohol use: Yes Alcohol/week: 7.0 standard drinks Types: 7 Standard drinks or equivalent per week Comment: occasionally ??? Drug use: Yes Frequency: 5.0 times per week Types: Marijuana Comment: every other day He states,I am almost done with marjuana I do 2 hits per day Family History Problem Relation Age of Onset [...] Neg Hx ??? Hemochromatosis Neg Hx BP 124/70 Pulse 72 Temp 98.1 ??F (36.7 ??C) (Temporal) Resp 18 Physical Exam Constitutional: He appears well-developed and well-nourished. Cardiovascular: Pulses: Dorsalis pedis pulses are 2+ on the left side. Musculoskeletal: Feet: Nursing note and vitals reviewed. Consult orders: None PCP: Michael Sandoval No results found for this visit on 08/10/19. Radiology orders: None Imaging Results None No orders to display Procedures URGENT CARE COURSE A medical screening exam was performed. Mr. Gonzalez is a 29 yo male who suffered a laceration of the dorsum of the L foot with glass on 07/31. Sutured in ED. Healing well. Sutures removed by RN. ASSESSMENT AND PLAN Final diagnoses: Visit for suture removal No supervision required. DISPOSITION: Discharged The patient's pain was managed to an adequate level weighing risk vs. benefit of further medications. Upon departure from [facility], the patient's pain was 0 on a zero to ten scale. Any further pain treatment will be at the discretion of the provider following up with the patient based on their clinical assessment . Condition at departure from the [facility] : Stable MDM 08/10/2019 21:51 . Baldev Heart RN - 08/10/2019 1333 EDT See cc note. Pt denies any signs of infection at suture site. Pt denies fever/chills. documented in this encounter Plan of Treatment Not on filedocumented as of this encounter Goals Goal Patient Goal Associated Recent Patient-Stated? Author Type Problems Progress Blood Pressure Blood Pressure Hypertensive 145/96 No Vosb urg, < 130/80 disorder (06/04/2022 SHIRA Boyd 13:12 EDT) documented as of this encounter Visit Diagnoses Diagnosis Visit for suture removal - Primary Encounter for removal of sutures documented in this encounter Care Teams Rod Buster Helper Relationship Specialty Start Date End Date Michael Sandoval MD PCP - General 06/06/18 09/28/19 documented as of this encounter
--- OUTSIDE RECORDS SUMMARY | 2022-06-05 06:49 | XMS_ITS | Encounter Summary ---
:1990 Author Organization [facility] Address [address] [place] [address] Care Team Providers Name Role Phone Mary Kate Mcduffie MD Primary Care Provider Reason for Referral Consult (48 Hrs (Urgent)) - Receiving Office to Obtain Authorization Specialty Diagnoses / Procedures Referred By Contact Refer red To Contact Infectious Disease Diagnoses Needle stick, hypodermic, accidental, initial encounter Lauren Carter PA-C Ep5 Infectious Disease [address] [address] Pavilion, Level 1 [place], [place] Fax: [phone] Referral ID Status Reason Start Expiration Visits Visits Date Date Requested Authorized [id number] Receiving Office Specialty 1 1 to Obtain Services 0 Authorization Required Question Answer Reason for Request: needle stick and started on complera Reason for Visit Reason Comments 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 Unknown what needle wa s used for or any history. Encounter Details Date Type Department Care Team Description 04/09/2020 - Emergency [facility] Lauren Carter P A-C Needle stick, 04/10/2020 Emergency Department 111 [facility] erm, - [address] accidental, initial 111 [facility] encounter ([place] [address] Pavilion, Level 1 Dx) [phone] [place] [address] (Wo rk) Social History Tobacco [...] Sign Reading Time Taken Comments Blood Pressure 146/105 04/10/2020 0118 EDT Pulse 81 04/10/2020 0118 EDT Temperature 36.5 ??C (97.7 ??F) 04/10/2020 0118 EDT Respiratory Rate 16 04/10/20208 EDT Oxygen Saturation 100% 04/10/2020 011 EDT Inhaled Oxygen Concentration - - Weight 104.3 kg (230 lb) 04/09/20202246 EDT Height 175.3 cm (5' 9) 04/09/20202246 EDT Body Mass Index 33.97 04/09/2020 2247 EDT documented in this encounter [...] documented as of this encounter Discharge Instructions Lauren Bae PA-C - 04/10/2020 You have been prescribed Complera oral antiviral medication, start tonight 1 tab once per day. Follow-up with infectious disease, call on Saturday for appointment You will also need to schedule continuation of your hepatitis B vaccination, you were given immunoglobulin here, and your first vaccine. Your tetanus status was updated tonight also Watch the area where you had the needlestick for any redness, swelling, or drainage. Make sure to follow-up with the recovery coaches in reference to your alcohol use Return for worsening symptoms AttachmentsThe following attachments cannot be sent through Care Everywhere. Exposure: Blood and Body Fluids (Cape Verdean)documented in this encounter Medications at Time of Discharge Medication Sig Dispensed Refills Start Date End Date acyclovir (ZOVIRAX) 200 2 tablets every 8 60 Cap 0 07/3102/08/2021 mg capsule hours for 10 days documented as of this encounter Discharge Disposition Disposition Code Departure Means Destination Home or Self Skilled Nursing documented in this encounter ED Notes Nettie Kruger RN - 04/10/2020 0133 EDT Pt d/c home ambulatory w/ instructions for care regarding f/u w/ Infectious disease and to monitor needle stick site. NAd time d/c. Will return to ED for new or concerning sx. ettie Gomez RN - 04/09/2020 2350 EDT Pt reports needle stick to left palm while at work at [employer]. NO other complaints. Blood drawn from [facility] #21 w/ no issue and (3) sst and (1) lav tube sent to lab for processing. Lauren Carter PA-C - 04/09/2020 2327 EDT DOS: 04/09/2020 Chief Complaint Patient presents with ??? 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 Unknown what needle was usedfor or any history. I, Mark Lujan, am scribing for Lauren Carter PA-C while he/she is personally performing the service. Mark Lujan 04/09/2020 23:28 Zeeshan Gonzalez Jr. is a 30 y.o. male with a history of asthma, HTN, and depression who presents to the ED with concern for accidental needle exposure. The patient states that he was working at a [employer] when he picked up closed styrofoam cup, at which point his left palm was stabbed with anunseen needle that was hidden in the cup. He is unsure how long the needle was there and does not know who used it. He notes that the needle broke the skin, but did not draw blood. Since the incident he has experienced nausea, but attributes this to not eating over the past couple of days. He is unsure if tetanus is UTD. Patient denies personal history of hepatitis or IV drug use. Patient currently smokes 1 ppd with a history of 7 pack years. He endorses marijuana use and alcoholuse, stating that he has been drinking daily since his grandmother at [place] of last year. The patient's past medical, family, and social history was reviewed and updated as needed. The history is provided by the patient and medical records. Review of Systems Review of Systems Gastrointestinal: Positive for nausea. Skin: Positive for wound. Allergic/Immunologic: Negative for immunocompromised state. The patient's past medical, family and social history was reviewed and updated as needed. Allergies Allergen Reactions ??? Cats ??? Pollen Extracts Vital Signs Temp: 36.5 ??C (97.7 ??F) Temp src: Oral Pulse: 81 Resp: 16 SpO2: 100 % BP: (!) 146/105 BP MAP: 115 mm Hg BP Device: BP Machine BP Patient Position: Sitting BP Cuff Location: Left arm Physical Exam Constitutional: He is oriented to person, place, and time. He appears well- developed and well-nourished. No distress. HENT: Head: Normocephalic and atraumatic. Eyes: Conjunctivae are normal. Neck: Normal range of motion. Cardiovascular: Normal rate, regular rhythm and normal heart sounds. No murmur heard. Pulmonary/Chest: Effort normal and breath sounds normal. No stridor. No respiratory distress. He hasno wheezes. He has no rales. Musculoskeletal: No erythema or swelling to left palm around reported puncture area. Neurological: He is alert and oriented to person, place, and time. Skin: Skin is warm and dry. He is not diaphoretic. Psychiatric: He has a normal mood and affect. Nursing note and vitals reviewed. RESULTS EKG orders: None Radiology orders: None Labs Reviewed COMPLETE BLOOD COUNT AND DIFFERENTIAL - Abnormal Result Value Status WBC 9.46 Final RBC 4.87 Final Hemoglobin 16.0 Final HCT 43.9 Final MCV 90 Final MCH 32.9 Final MCHC 36.4 Final RDW-CV 12.8 Final RDW-SD 41.6 Final PLT 221 Final MPV 8.9 (*) Final Neutrophils 59.0 Final Lymphocytes 31.3 Final Monocytes 7.0 Final Eosinophils 1.8 Final Basophils 0.4 Final Immature Grans 0.5 Final Absolute Neutrophils 5.58 Final Absolute Lymphocytes 2.96 Final Absolute Monocytes 0.66 Final Absolute Eosinophils 0.17 Final Absolute Basophils 0.04 Final Absolute Immature Grans 0.05 Final Type of Differential: Auto Final HEPATIC FUNCTION PANEL (ALB,ALK PHOS,ALT,AST,DBIL,TOT JULIOCESAR,TOT PROT) - Abnormal Total Protein 8.0 Final Albumin 4.8 Final Bilirubin, Total 0.8 Final Conjugated Bilirubin 0.0 Final Unconjugated Bilirubin 0.7 Final Alkaline Phosphatase 77 Final ALT 67 (*) Final AST 42 Final BASIC METABOLIC PANEL (BMP) - Abnormal Sodium 134 (*) Final Potassium 3.8 Final Chloride 104 Final CO2 Total 20 (*) Final Glucose 100 Final Calcium 9.3 Final Calculated Calcium 8.7 Final BUN 9 (*) Final Creatinine 0.82 Final eGFR 120 Final RAPID HIV 1/2 ANTIGEN AND ANTIBODY, 4TH GENERATION HEPATITIS B SURFACE ANTIGEN HEPATITIS B SURFACE ANTIBODY HEPATITIS B CORE ANTIBODY, IGM (ANTI-HBC, IGM), SERUM Procedures ED COURSE A medical screening exam was performed. The patient is a 30 y.o. male, who presents with concern for accidental needle exposure tonight. On exam, no erythema or swelling to left palm around reported puncture area; heart RRR; lungs CTAB. Discussed risks and benefits of lab studies and beginning anti-viral medication. He is amenable to this plan. Offered the patient resources to assist with his alcohol use. 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 Patient had labs that were reviewed independently by myself, significant for sodium 134, ALT 67. Advised to follow-up with HIV results. Patient administered Tdap, hepatitis B immune globulin, and hepatitis B vaccine. He was provided Complera starter pack prior to discharge. Due to extenuating circumstances, I provided the patient with a starter pack of necessary medication prior to discharge. I reviewed the patients chart and outpatient medication list, counseled the patient about use of the medication, and provided adequate time for questions. I answered all questions regarding the medication prior to dispensing. Patient discharged to home. Advised Infectious Disease follow-up. Prior to discharge usual and customary precautions were reviewed with the patient and/or family including follow-up instructions and reasons to return to the Emergency Department if condition worsens, does not improve as expected, or other new concerns arise. Differential diagnosis for patient left hand needlestick, HIV exposure, hepatitis C exposure, hepatitis B exposure, vaccinations, alcohol dependency Final diagnoses: Needle stick, hypodermic, accidental, initial encounter DISPOSITION: Discharged The patient's pain was managed to an adequate level weighing risk vs. benefit of further medications. Upon departure from the Emergency Department, the patient's pain was 0 on a zero to ten scale. Any further pain treatment will be at the discretion of the provider following up with the patient based on their clinical assessment. Condition at departure from the Emergency Department: Improved PCP: Mary Kate Cook 04/11/2020 4:21 No flowsheet data found. This documentation is recorded by Mark Lujan acting as Scribe under the direction and presenceof Lauren Carter PA-C. Lauren Carter PA-C: I personally performed the services recorded by the scribe in my presence. I confirm the scribe's documentation has been reviewed by me to accurately and completely record my work, treatment, procedures, and medical decision making. Dr. Cook was available for supervision. Tanisha Silverman RN - 04/09/2020 2860 EDT Chief Complaint Patient presents with ??? 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 Unknown what needle was usedfor or any history. documented in this encounter Plan of Treatment Scheduled Referrals Name Type Priority Associated Order Schedule Diagnoses AMB CONS/FOLLOW UP Outpatient Referral Routine Needle stick, E xpected: ADULT INFECTIOUS hypodermic, 04/16/2020 DISEASE accidental, initial (Approxi mate) encounter documented as of this encounter Goals Goal Patient Goal Associated Recent Patient-Stated? Author Type Problems Progress Blood Pressure Blood Pressure Hypertensive 145/96 No Vosb urg, < 130/80 disorder (06/04/2022 SHIRA Boyd 13:12 EDT) documented as of this encounter Procedures Procedure Name Priority Date/Time Associated Comments Diagnosis HEPATITIS B CORE Routine 04/09/2020 23:44 Results for this ANTIBODY, IGM EDT procedure are in (ANTI-HBC, IGM), the results SERUM section. COMPLETE BLOOD COUNT STAT 04/09/2020 23:44 Res ults for this AND DIFFERENTIAL EDT procedure a re in the results section. RAPID HIV 1/2 ANTIGEN STAT 04/09/2020 23:43 Re sults for this AND ANTIBODY, 4TH EDT procedure are in GENERATION the results section. HEPATITIS B SURFACE Routine 04/09/2020 23:43 Resu lts for this ANTIBODY EDT procedure are i n the results section. HEPATITIS B SURFACE Routine 04/09/2020 23:43 Resu lts for this ANTIGEN EDT procedure are i n the results section. HEPATIC FUNCTION STAT 04/09/2020 23:43 Results for this PANEL (ALB,ALK EDT procedure are in PHOS,ALT,AST,DBIL,TOT the re sults JULIOCESAR,TOT PROT) section. BASIC METABOLIC PANEL STAT 04/09/2020 23:43 Re sults for this (BMP) EDT procedure are i n the results section. documented in this encounter Results HEPATITIS B CORE ANTIBODY, IGM (ANTI-HBC, IGM), SERUM (04/09/2020 23:44 EDT) HBc IgM Ab, S Negative Negative [facility] Comment: LABORATORIES Test Performed by: [facility] [address] [place] [address] Neuroscience Specialist: Tunde Eisenberg M.D. Ph.D.; CLIA# [id number] Specimen Blood - Venous blood (substance) Performing Organization Address City/State/ZIP Code Phon e Number [facility] [address] [place] [address] (ABNORMAL) COMPLETE BLOOD COUNT AND DIFFERENTIAL (04/09/2020 23:44 EDT) Pathologist Sig nature WBC 9.46 4.00 - 10.40 [facility] LABORATORY SERVICES RBC 4.87 4.36 - 5.78 [facility] LABORATORY SERVICES Hemoglobin 16.0 13.8 - 17.3 [facility] gm/dL LABORATORY SERVICES HCT 43.9 39.5 - 50.2 % [facility] LABORATORY SERVICES MCV 90 81 - [address] [facility] LABORATORY SERVICES MCH 32.9 27.6 - 33.[address] [facility] LABORATORY SERVICES MCHC 36.4 32.8 - 36.4 [facility] gm/dL LABORATORY SERVICES RDW-CV 12.8 <14.2 % [facility] LABORATORY SERVICES RDW-SD 41.6 <46.[address] [facility] LABORATORY SERVICES PLT 221 141 - 377 [facility] LABORATORY SERVICES MPV 8.9 (L) 9.5 - 12.[address] [facility] LABORATORY SERVICES Neutrophils 59.0 % [facility]ORY SERVICES Lymphocytes 31.3 % [facility] SERVICES Monocytes 7.0 % [facility] SERVICES Eosinophils 1.8 % [facility]ATORY SERVICES Basophils 0.4 % [facility]ATORY SERVICES Immature Grans 0.5 % [facility]ORATORY SERVICES Absolute Neutrophils 5.58 2.20 - 8.85 [facility] LABORATORY SERVICES Absolute Lymphocytes 2.96 1.09 - 3.30 [facility] LABORATORY SERVICES Absolute Monocytes 0.66 0.10 - 0.80 [facility] LABORATORY SERVICES Absolute Eosinophils 0.17 0.03 - 0.61 [facility] LABORATORY SERVICES Absolute Basophils 0.04 0.01 - 0.11 [facility] LABORATORY SERVICES Absolute Immature 0.05 0.00 - 0.06 [facility] LABORATORY SERVICES Type of Differential: Auto [facility] LABORATORY SERVICES Specimen Blood - Venous blood (substance) Performing Organization Address City/State/ZIP Code Phon e Number [facility] [address] [place] [address] SERVICES HEPATITIS B SURFACE ANTIBODY (04/09/2020 23:43 EDT) Hep B Surface Ab, <3.[address] [facility] Quantitative Comment: mIU/mL CENTER LABORATORY Reference Range for Hep B Surface Ab, Quant: SERVICES Positive: >= 10.0 mIU/mL Negative: ??< 10.0 mIU/mL Patient is presumed to not be immune to infection with Hepatitis B Virus. Hep B Surface Ab, Negative See Note [facility] Qualitative Comment: CENTER LABORATORY SERVICES Reference Range for Hep B Surface Ab, Qual: Unvaccinated: ??Negative Vaccinated: ??Positive Specimen Blood - Venous blood (substance) Performing Organization Address [facility] Phon e Number [facility] [address] [place] [address] SERVICES HEPATITIS B SURFACE ANTIGEN (04/09/2020 23:43 EDT) Pathologist Sig nature Hep B Surface Ag Negative Negative [facility] LABORATORY SERVICES Specimen Blood - Venous blood (substance) Performing Organization Address [facility] Phon e Number [facility]ORY [address] [place] [address] SERVICES (ABNORMAL) BASIC METABOLIC PANEL (BMP) (04/09/2020 23:43 EDT) Sodium 134 (L) 136 - 145 [facility] mEq/L LABORATORY SERVICES Potassium 3.8 3.5 - 5.0 [facility] mEq/L LABORATORY SERVICES Chloride 104 96 - 110 [facility] mEq/L LABORATORY SERVICES CO2 Total 20 (L) 22 - 32 mEq/L [facility] LABORATORY SERVICES Glucose 100 70 - 100 [facility] mg/dL LABORATORY SERVICES Calcium 9.3 8.5 - 10.5 [facility] mg/dL LABORATORY SERVICES Calculated Calcium 8.7 8.5 - 10.5 [facility] mg/dL LABORATORY SERVICES BUN 9 (L) 10 - 26 mg/dL [facility] LABORATORY SERVICES Creatinine 0.82 0.66 - 1.25 [facility] mg/dL LABORATORY SERVICES eGFR 120Comment: eGFR >60 [facility] calculated using mL/min/1.73m2 LABORATORY CKD-EPI equation SERVICES for non- Americans. Multiply eGFR by 1.16 for patients. Specimen Blood - Venous blood (substance) Performing Organization Address [facility] Phon e Number [facility] LABORATORY [address] [place] [address] SERVICES (ABNORMAL) HEPATIC FUNCTION PANEL (ALB,ALK PHOS,ALT,AST,DBIL,TOT JULIOCESAR,TOT PROT) (04/09/2020 23:43 EDT) Pathologist Sig nature Total Protein 8.0 6.3 - 8.2 g/dL [facility] LABORATORY SERVICES Albumin 4.8 3.4 - 4.9 g/dL [facility] LABORATORY SERVICES Bilirubin, Total 0.8 <1.4 mg/dL [facility] LABORATORY SERVICES Conjugated Bilirubin 0.0 0.0 - 0.3 mg/dL [facility] SERVICES Unconjugated Bilirubin 0.7 0.0 - 1.1 mg/dL [facility] LABORATORY SERVICES Alkaline Phosphatase 77 38 - 126 U/L [facility] LABORATORY SERVICES ALT 67 (H) <50 U/L [facility] LABORATORY SERVICES AST 42 15 - 46 U/L [facility] LABORATORY SERVICES Specimen Blood - Venous blood (substance) Performing Organization Address City/[facility]/ZIP [facility] Phon e Number [facility] LABORATORY [address] [place] [address] SERVICES RAPID HIV 1/2 ANTIGEN AND ANTIBODY, 4TH GENERATION (04/09/2020 23:43 EDT) Rapid HIV 1 and [address] [facility] Antibody/P24 Comment: LABORATORY Antigen, 4th SERVICES Generation If acute HIV-1 infection is suspected in a high risk ??patient, submit plasma specimen for HIV-1 RNA quantitation test. Fourth Generation assay performed on the Siemens [place] ur Specimen Blood - Venous blood (substance) Performing Organization Address City/[facility] Phon e Number [facility] LABORATORY [address] [place] [address] SERVICES documented in this encounter Visit Diagnoses Diagnosis Needle stick, hypodermic, accidental, in itial encounter - Primary documented in this encounter Administered Medications Inactive Administered Medications - up to 3 most recent administrations Medication Order MAR Action Action Date Dose Rate Site hxcrlggcnhxbf-pnbhvxlizjf-iknvszowa disp andrew (COMPLERA) 200-25-300 mg starter pack 1 dose, Starting on 04/09/20 at 2348, Until Sun /03/07 at 0335 vziutmtgssjou-jsassmyncoi-intonlbrd disprox Given 04/10/2020 1:23 EDT 1 Package (COMPLERA) starter pack 1 Package 1 Package, oral, ONCE, 1 dose, Starting on 04/10/20 at 0043, Until 04/10/20 at 0123, All anti-retrovirals for ADULT patients are restricted. Has ID approved? No, STAT hepatitis B immune globulin (HYPERHEP B) Given 04/10/2020 1:21 E DT 1,100 Units injection 1,100 Units 1,100 Units, intramuscular, NOW X1, 1 dose, On 04/10/20 at 0015, Routine hepatitis B vaccine (PF) Given 04/10/2020 1:20 EDT 0.5 mL Right Deltoid (HEPLISAV-B) IM Injection-syringe 0.5 mL 0.5 mL, intramuscular, ONCE, 1 dose, Starting on 04/10/20 at 0000, Until 04/10/20 at 0120, STAT documented in this encounter Active and Recently Administered Medications Times are shown in EDT. Scheduled Medication Order 04/08/2020 04/09/2020 04/10/2020 gsezeyrqhopfv-eqqdyydfysr-vtpwoylyt disp andrew (COMPLERA) starter pack 1 Package (COMPLETED) 0123 (Given - Provid er: Nettie Kruger RN - Comment: home w/ pt) 1 Package, oral, ONCE, 1 dose, Starting 04/10/20 at 0043, Until Discontinued, All anti-retrovirals for ADULT patients are restricted. Has ID approved? No, STAT hepatitis B immune globulin (HYPERHEP B) injection 1,100 Units ( COMPLETED) 0121 (Given - Provider: Nettie Kruger RN) 1,100 Units, intramuscular, NOW X1, 1 dose, 04/10/20 at 0015, Routine hepatitis B vaccine (PF) (HEPLISAV-B) IM Injection-syringe 0.5 m L (COMPLETED) 0120 (Given - Provider: Nettie Kruger RN) 0.5 mL, intramuscular, ONCE, 1 dose, Sta rting 04/10/20 at 0000, Until Discontinued, STAT No Frequency Medication Order 04/08/2020 04/09/2020 04/10/2020 zclgiswmnxvkd-glwygahetuc-wjagvnrat disp andrew (COMPLERA) 200-25-300 mg starter pack 1 dose, Starting 04/09/20 at 2348, Until Discontinued documented in this encounter Orders Medications Ordered That Might Not Have Count Last Ord ered Date First Ordered Date Been Administered hepatitis B immune globulin (HYPERHEP B) 1 020 injection 220 Units ysxzmkdnosscc-tspovfhuegh-ejgjkvlii 1 04/09/2020 disprox (COMPLERA) 200-25-300 mg starter pack hepatitis B immune globulin (HYPERHEP B) 1 020 injection 1,320 Units hepatitis B immune globulin (HYPERHEP B) 1 020 injection 1,386 Units documented in this encounter Care Teams Cloth Hauler Relationship Specialty Start Date End Date Mary Kate Mcduffie MD PCP - General Family Medicine - Primary 01/08/20 Care documented as of this encounter
--- OUTSIDE RECORDS SUMMARY | 2022-06-05 06:49 | XMS_ITS | Encounter Summary ---
:1990 Author Organization [facility] Address [address] [place] [address] Care Team Providers Name Role Phone Mary Kate Mcduffie MD Primary Care Provider Reason for Visit Reason Comments Dental Pain 07/28 dental pain to upper le ft mouth. Encounter Details Date Type Department Care Team Description 01/22/2020 Emergency [facility] Bounds, Wolf Pain d ue to dental Emergency Department MD Navdeep caries (Primary Dx) - [address] [address] [address], [place] [address] (Wo rk) Social History Tobacco [...] Sign Reading Time Taken Comments Blood Pressure 180/92 01/22/2020 1133 EST Pulse 84 01/22/2020 1133 EST Temperature 36.5 ??C (97.7 ??F) 01/22/2020 1133 EST Respiratory Rate 12 01/22/2020 1133 EST Oxygen Saturation 100% 01/22/2020 1133 EST Inhaled Oxygen Concentration - - Weight 95.3 kg (210 lb) 01/22/2020 1133 EST Height - - Body Mass Index 31.93 08/07/2019 1518 EDT documented in this encounter [...] documented as of this encounter Discharge Instructions InstructionsBoundsWolf MD - 01/22/2020 You should continue to use Tylenol 1000 mg every 6 hours as needed for pain. You can also use ibuprofen 600-800 mg every 6 hours as needed for pain. With the ibuprofen you should have some food in yourstomach. Some patients prefer to alternate these, one dose of Tylenol and then 3 hours later one dose of ibuprofen and alternating the medications every 3 hours so that each one is taken every 6 hours. AttachmentsThe following attachments cannot be sent through Care Everywhere. Tooth Decay (Ivorian)Tooth: Abscessed (Ivorian)documented in this encounter Medications at Time of Discharge Medication Sig Dispensed Refills Start Date End Date acyclovir (ZOVIRAX) 200 2 tablets every 8 60 Cap 0 07/3102/08/2021 mg capsule hours for 10 days penicillin v potassium Take 1 Tab by mouth 4 28 Tab 0 01/29/2020 (VEETID) 500 mg tablet times daily for 7 days. documented as of this encounter Ordered Prescriptions Prescription Sig Dispensed Refills Start Date End Date penicillin v potassium Take 1 Tab by mouth 28 Tab 0 04/202001/29/2020 (VEETID) 500 mg tablet 4 times daily for 7 days. documented in this encounter Discharge Disposition Disposition Code Departure Means Destination Home or Self Penitentiary documented in this encounter Progress Notes Eran Urbano - 01/22/2020 1203 EST Mitzycristina nAabelle Gonzalez Jr. is a 29 y.o. male seen in the [facility] Emergency Department 01/22/20. As part of routine care Zeeshan Gonzalez Jr. was screened for substance use and depression. The results and interventions are as follows: The AUDIT-C was administered because the patient reported using alcohol daily during the last year. The score demonstrated high risk of alcohol use problems, therefore we recommend brief intervention during this visit. The Cannabis Intervention Screen (CIS) was administered because the patient reported using marijuanadaily during the last year. The results of the CIS demonstrated low risk of Cannabis Use Disorder. Therefore we recommend brief intervention during this visit. The DAST 10 was not administered because the patient reported using other drugs never during the last year. DAST score demonstrated no or minimal risk of substance use problems, therefore we recommend normal screening . The depression screen completed was the PHQ-9 and demonstrated no or minimal risk of clinical depression. Suicidality was not reported. Therefore we recommend normal screening . The GRETCHEN-7 was completed and demonstrated high risk of generalized anxiety disorder. Therefore we recommend brief intervention during this visit. Provided brief intervention for alcohol and marijuana use and high risk anxiety. Pt has made active changes toward reducing his alcohol use two weeks ago, current use is 1 drink per day. Pt engaged with AA sponsor and [facility] counselor to address mental health and substance use needs. Pt feels positive about his recent change and is well supported by his partner. RAYMOND Navarro #[id number] documented in this encounter ED Notes Wolf Ralph MD - 01/22/2020 5464 EST This patient received an evaluation and medical screening exam for emergent medical conditions at the [facility] on 01/22/2020 Scribe attestation: This documentation is recorded by Pamela Julien acting as Scribe under the direction and presence of Wolf Ralph MD. Wolf Ralph MD: I personally performed the services recorded by the scribe in my presence. I confirm the scribe's documentation has been reviewed by me to accurately and completely record my work, treatment, procedures, and medical decision making. HPI Zeeshan Gonzalez Jr. is a 29 y.o. male with PMH including HTN, depression and obesity who presents to the ED for dental pain. Patient reports 9/10 dental pain to his upper left 2nd molar pain. He states the pain began a few weeks ago, progressively worsened, and has been severe over the past few days. Hedescribes the pain as constant and throbbing and made worse with eating or drinking. Patient denies difficulty swallowing or troubles with breathing. He has no swelling of his glands, and no erythema or swelling of his face. Patient denies fevers, chills, or neck pain. SHx: Patient endorses regular alcohol, tobacco and marijuana use. History was provided by: Patient, medical records. Patient's pertinent PMH, FH, SH were reviewed and updated PRN. ROS A 10-point review of systems was performed. The patient answered negative to all questions with the exceptions of those explicitly detailed as positives in the HPI. Pertinent negatives are also explicitly stated. Physical Exam Vital Signs Temp: 36.5 ??C (97.7 ??F) Temp src: Temporal Pulse: 84 Resp: 12 SpO2: 100 % BP: (!) 180/92 BP Device: BP Machine O2 Device: None (Room air) Nursing note and initial vital signs reviewed. Gen: Well-appearing in NAD Head: Normocephalic and atraumatic HEENT: no scleral icterus, no conjunctival pallor or injection. Positive tenderness of the left maxillary second molar, no fluctuance, positive erythema and swelling noted. Posterior oropharynx unremarkable. Generally poor dentition, no sign of abscess of the gums. Neck: supple, FROM, NT Ext: no cyanosis or clubbing, no edema noted, no obvious sign of trauma Neuro: alert, conversant, nl eye contact and movements, nl speech, grossly normal strength bilaterally Skin: warm and dry, no concerning rashes or lesions on limited exam Medical Decision Making The differential diagnosis for this patient includes but is not limited to: denary carry, periapicalabscess. The history and physical exam for this patient are NOT consistent with: Drainable dental abscess, deep space infection, airway compromise. Further workup for these conditions is not indicated at this time, based on my evaluation of the patient's presentation, risks and benefits, and shared decision making. Procedures Procedures ED Course Zeeshan Gonzalez Jr. is a 29 y.o. male with dental pain. On exam, patient has positive tenderness of the left maxillary second molar, no fluctuance, positiveerythema and swelling noted. His posterior oropharynx is unremarkable. He has generally poor dentition with no sign of abscess of the gums. 1326: Patient was given 800 mg PO Motrin. 1400: On re-evaluation, patient reported his pain as a 5/10, improved from before. He was upset withtreatment with non-opiate therapy and the wait time to be seen. Counseled him that Motrin and Tylenol is indicated for their pain and may be seen at a dental clinic. Patient was open to the idea and agrees to follow up with dental clinic. Patient was amenable to discharge. Patient was discharged with a work note, Rx of Veetid and instructions to follow up with PCP. Clinical Impression Final diagnoses: Pain due to dental caries Pain Management While under my care in the Emergency Department, the patient's pain was managed to an adequate levelweighing risk vs. benefit of medication. At the time of disposition, my impression of the patient's pain level was 3 out of 10. The patient was dispositioned without a new outpatient prescription for controlled substances due toone of the following reasons: - non-malignant pain - pain without objective painful condition found - no, mild, or moderate pain only - high-risk patient for opioid therapy - stated allergy to an opioid with risk of cross-reaction - expected short duration of pain - exacerbation of chronic pain - medical condition known to have poor response to opioids - admitted to inpatient service Following departure from our facility, any remaining pain can with all likelihood be managed by the patient using prescribed non-opioid medication, OTC analgesics, or non-pharmacological agents such heat or ice packs. The patient was advised to follow-up with his/her primary care provider if additional or prolonged pain management is needed. If the pain worsens, the patient is instructed to return for re-evaluation. Disposition Disposition decisions were made weighing risks and benefits of hospitalization vs. outpatient treatment, the risk for further decompensation, and the patient???s wishes. - If discharged: the patient was stable, improved, or requested discharge. Prior to discharge my usual and customary return precautions were reviewed with the patient and/or family. This included follow-up instructions and reasons to return to the Emergency Department if condition worsens, does not improve as expected, or other new concerns arise. documented in this encounter Plan of Treatment Not on filedocumented as of this encounter Goals Goal Patient Goal Associated Recent Patient-Stated? Author Type Problems Progress Blood Pressure Blood Pressure Hypertensive 145/96 No Vosb urg, < 130/80 disorder (06/04/2022 SHIRA Boyd 13:12 EDT) documented as of this encounter Visit Diagnoses Diagnosis Pain due to dental caries - Primary Unspecified dental caries documented in this encounter Administered Medications Inactive Administered Medications - up to 3 most recent administrations Medication Order MAR Action Action Date Dose Rate Site ibuprofen (MOTRIN) tablet 800 mg Given 01/22/2020 13:26 EST 800 mg 800 mg, oral, NOW X1, 1 dose, On 01/22/20 at 1330, STAT documented in this encounter Active and Recently Administered Medications Times are shown in EST. Scheduled Medication Order 01/20/2020 01/21/2020 01/22/2020 ibuprofen (MOTRIN) tablet 800 mg (COMPLETED) 1326 (Given - Provider: Galileo Bedoya RN) 800 mg, oral, NOW X1, 1 dose, Sat01/22/20 at 1330, STAT documented in this encounter Orders Medications Ordered That Might Not Have Count Last Ord ered Date First Ordered Date Been Administered ibuprofen (MOTRIN) tablet 800 mg 1 01/22/2020 documented in this encounter Care Teams Administrative Assistant Office Manager Relationship Specialty Start Date End Date Mary Kate Mcduffie MD PCP - General Family Medicine - Primary 01/08/20 Care documented as of this encounter
--- OUTSIDE RECORDS SUMMARY | 2022-06-05 06:49 | XMS_ITS | Encounter Summary ---
:1990 Author Organization [facility] Address [address] [place] [address] Care Team Providers Name Role Phone Madi Cook NP Primary Care Provider Reason for Visit Reason Comments Fall Back Pain Encounter Details Date Type Department Care Team Description 12/27/2021 Walk-In [facility] - Judith Patrick cute pain of left [facility] - C, PA-C shoulder (Primary Dx) [phone] [place] [address] [phone] [place] [address] Social History Tobacco Use Types Packs/Day Years [...] Sign Reading Time Taken Comments Blood Pressure 146/90 12/27/2021 1510 EST Pulse 86 12/27/2021 1510 EST Temperature 36.4 ??C (97.6 ??F) 12/27/2021 1510 EST Respiratory Rate 16 12/27/2021 1510 EST Oxygen Saturation 98% 12/27/2021 1510 EST Inhaled Oxygen Concentration - - Weight - [...] as of this encounter Patient Instructions Patient InstructionsJudith Patrick PA-C - 12/27/2021 15:15 EST Images from the original note were not included. You can take ibuprofen and or tylenol with the muscle relaxer. Your should xray does not appear to have a fracture. A radiologist will read the imaging and I will call if they see anything different. I do not suspect a rotator muscle tear but I do suspect you sprained your rotator cuff. Gentle stretches are good. Ice packs should help as well. [facility] Patient Instructions Rotator Cuff Injury: Care Instructions Overview The rotator cuff is a group of tendons and muscles around the shoulder that keeps the upper arm bonein place. It keeps the shoulder joint stable and allows you to raise and rotate your arm. Damage to the rotator cuff can be caused by overuse, a fall, or a direct blow to the shoulder area, which can tear the tendons. Over time, everyday wear can damage the tendons and make injury more likely. Treatment can depend on the type and amount of damage to the tendons. Your doctor may have you try physical therapy and exercise first. If physical therapy does not help, your doctor may recommend surgery. Follow-up care is a eugene part of your treatment and safety. Be sure to make and go to all appointments, and call your doctor if you are having problems. It's also a good idea to know your test results and keep a list of the medicines you take. How can you care for yourself at home? ?? Rest your shoulder as much as you can. If your doctor put your arm in a sling or shoulder immobilizer, wear it as directed. Do not take it off before your doctor tells you to. If it is too tight, loosen it. ?? Be safe with medicines. Read and follow all instructions on the label. ? If the doctor gave you a prescription medicine for pain, take it as prescribed. ? If you are not taking a prescription pain medicine, ask your doctor if you can take an fvsu-sho-oqaunyw medicine. ?? Put ice or a cold pack on your shoulder for 10 to 20 minutes at a time. Try to do this every 1 to2 hours for the next 3 days (when you are awake). Put a thin cloth between the ice pack and your skin. ?? After 2 or 3 days, if you don't have swelling, apply heat. Put a warm water bottle, a heating padset on low, or a warm cloth on your shoulder. Do not go to sleep with a heating pad on your skin. Put a thin cloth between the heating pad and your skin. ?? While holding a warm, wet towel on your shoulder, lean forward so your arm hangs freely, and gently swing your arm back and forth like a pendulum. You also can do this standing under a warm shower. ?? Do not do anything that makes your pain worse. ?? Follow your doctor's advice about whether you need physical therapy. When should you call for help? Call your doctor now or seek immediate medical care if: ? You have severe pain. ? You cannot move your shoulder or arm. ? You have tingling or numbness in your arm or hand. ? Your arm or hand is cool or pale. Watch closely for changes in your health, and be sure to contact your doctor if: ? Your pain gets worse. ? You have new or worse swelling in your arm or hand. ? You do not get better as expected. Where can you learn more? Go to https://www.[employer]net/Media Battlesealth or log into your [facility] account at [email or web address] Enter D027 in the search box to learn more about Rotator Cuff Injury: Care Instructions. Current as of: May 18, 2021?Content Version: 13.1 ?? [employer]. Care instructions adapted under license by [facility]. If you have questions about a medical condition or this instruction, always ask your healthcare professional. [employer] disclaims any warranty or liability for your use of this information. documented in this encounter Ordered Prescriptions Prescription Sig Dispensed Refills Start Date End Date methocarbamoL (ROBAXIN) Take 2 Tablets by 40 Tablet 0 12/2701/01/2022 500 mg tablet mouth 4 times daily for 5 days. documented in this encounter Progress Notes Judith Patrick PA-C - 12/27/2021 1515 EST [facility] Chief Complaint(s): Chief Complaint Patient presents with ??? Fall ??? Back Pain Assessment & Plan: 1. Acute pain of left shoulder XR SHOULDER LEFT 2 OR MORE VIEWS New Prescriptions METHOCARBAMOL (ROBAXIN) 500 MG TABLET Take 2 Tablets by mouth 4 times daily for 5 days. This patient presents with concern for left shoulder pain after falling onto the area. The patient does not have a fracture on xray. He does have pain with active ROM although able to show good ROM. The patient has no pain with passive ROM. I suspect a rotator cuff sprain without complete rupture. Conservative treatment discussed. He can take muscle relaxer, ibuprofen, tylenol. Follow up with worsening or prolonged symptoms as discussed. HPI: This patient presents with concern for left shoulder pain after he fell from the back of a stationary moving truck. He notes he was likely 4 feet off the ground and fell back onto the left shoulder. The patient notes he also has chronic right low back pain that was exacerbated immediately after the fall but is actually feeling a little better. He denies head injury or LOC. He notes when he tries to left the left arm away from the body he is able to do so but it hurts. He notes the pain is in the top of the shoulder. He denies pain shooting down the arm or weakness in thearm. The history is provided by the patient. ROS: Review of Systems Constitutional: Negative for fever. HENT: Negative for sore throat. Respiratory: Negative for cough and shortness of breath. Musculoskeletal: Negative for myalgias. Neurological: No change in taste or sense of smell Objective: Vitals and nursing notes reviewed Examination: BP (!) 146/90 Pulse 86 Temp 36.4 ??C (97.6 ??F) Resp 16 SpO2 98% Physical Exam Constitutional: General: He is not in acute distress. Appearance: Normal appearance. Musculoskeletal: Comments: Left shoulder with TTP only over the medial spine of the left scapula. Pt has pain at thesuperior shoulder with abduction, only able to abduct to 90 degrees. No pain with full passive abduction or crossing the left arm in front of body. Rope Silica Machine Operator strength normal. Radial pulses normal. Normal strength in the LEs, patellar reflexes normal. Skin: General: Skin is warm and dry. Neurological: Mental Status: He is alert. Gait: Gait normal. This note may be in part documented using voice dictation software. Please forgive any errors or omissions that may result from use of dictation. Brenda Lou RN - 12/27/2021 1515 EST CC/HPI: Patient c/o back and L shoulder pain after falling out of the back of a truck around 10:30amtoday. Didn't hit his head, denies LOC. He has not taken any OTC medication for his discomfort. Covid Screening: In the last 72 hours, has the patient had: New or unusual cough, shortness of breath, new nasal congestion, sore throat, fever, chills, body aches, or new loss of taste or smell without a reasonable alternative diagnosis*? (If yes, assign to ARC) - NO, smokers cough, not new/different In the past 10 days, has the patient had a positive Covid test OR a confirmed close Covid exposure (<6ft for > 15mins in 24hr period)? (if yes, assign to ARC, regardless of vaccination status) - NO Is the patient fully Covid vaccinated? NO Approximate date of last dose? *may be determined by RN or in discussion with available provider (CEMENTING BULK MATERIAL OPERATOR's and CCA's can defer to Charge Nurse to complete triage when appropriate) PCP: Madi Cook documented in this encounter Plan of Treatment Not on filedocumented as of this encounter Goals Goal Patient Goal Associated Recent Patient-Stated? Author Type Problems Progress Blood Pressure Blood Pressure Hypertensive 145/96 No Vosb urg, < 130/80 disorder (06/04/2022 SHIRA Boyd 13:12 EDT) Being Active General Severe obesity No Jesse, with body mass ALLIE Vergara index (BMI) of 35.0 to 39.9 with comorbidity ([facility]) Note: Being Active Goal: Go for a walk 4 times per week for 20 minutes. The patient's confidence level, sources of support and barriers to change were assessed. Pertinent information is documented in the visit encounter. Counseling was provided to assess readiness, confidence and/or barriers to self-care. To learn more about your health please v isit: [facility] Wellness Resource documented as of this encounter Procedures Procedure Name Priority Date/Time Associated Diagnosis Comme nts XR SHOULDER LEFT 2 STAT 12/27/2021 16:01 Acute pain of left Results for this OR MORE VIEWS EST shoulder procedure are in the results section. documented in this encounter Results XR SHOULDER LEFT 2 OR MORE VIEWS (12/27/2021 16:01 EST) Anatomical Region Laterality Modality Left Computed Radiography Specimen Impressions [facility] - 12/27/2021 16:07 EST No acute findings. THIS DOCUMENT HAS BEEN ELECTRONICALLY SI GNED BY RAFAL ADHIKARI MD FOR ANY QUESTIONS OR CONCERNS REGARDING THIS REPORT PLEASE CALL [facility] AT [phone] Narrative [facility] - 12/27/2021 16:07 EST PROCEDURE INFORMATION: Exam: XR Left Shoulder Exam date and time: 12/27/2021 3:35 PM Age: 31 years old Clinical indication: Pain in left should er; Other: Superior shoulder and medial scapula pain after falling fr om 4 feet and landing on shoulder TECHNIQUE: Imaging protocol: XR Left shoulder. Views: 2 or more views. COMPARISON: No relevant prior studies available. FINDINGS: Bones/joints: Normal. Soft tissues: Normal. Procedure Note Rafal Adhikari MD - 12/27/2021 PROCEDURE INFORMATION: Exam: XR Left Shoulder Exam date and time: 12/27/2021 3:35 PM Age: 31 years old Clinical indication: Pain in left should er; Other: Superior shoulder and medial scapula pain after falling fr om 4 feet and landing on shoulder TECHNIQUE: Imaging protocol: XR Left shoulder. Views: 2 or more views. COMPARISON: No relevant prior studies available. FINDINGS: Bones/joints: Normal. Soft tissues: Normal. IMPRESSION No acute findings. THIS DOCUMENT HAS BEEN ELECTRONICALLY SI GNED BY RAFAL ADHIKARI MD FOR ANY QUESTIONS OR CONCERNS REGARDING THIS REPORT PLEASE CALL [facility] AT [phone] Performing Organization Address City/State/ZIP Code Phon e Number [facility] documented in this encounter Visit Diagnoses Diagnosis Acute pain of left shoulder - Primary documented in this encounter Discontinued Medications Medication Sig Discontinue Reason Start Date End Date methocarbamoL (ROBAXIN) Take 1 Tab by Therapy completed 02/16/2021 12/27/2021 750 mg tablet mouth 3 times daily. documented as of this encounter Care Teams Dietetic Aide Relationship Specialty Start Date End Date Madi Cook, VETERINARY INSPECTOR PCP - General Family Medicine - Primary 11/03/[address] [place] [address] [address] [place] [phone] documented as of this encounter
--- OUTSIDE RECORDS SUMMARY | 2022-06-05 06:49 | XMS_ITS | Encounter Summary ---
:1990 Author Organization [facility] Address [address] [place] [address] Care Team Providers Name Role Phone Madi Cook NP Primary Care Provider Reason for Visit Reason Comments Depression Alcohol Use Encounter Details Date Type Department Care Team Description 02/20/2022 [facility] Family Fidelia Goldberg, Alcohol abuse (Primary Dx); [facility] PSYCH-MA Severe episode of recurrent major depres sive disorder, without psychotic features ([facility]) [address] [facility] [address] [place] [address] [place], [place] [phone] Social History Tobacco Use Types Packs/Day [...] 35.0 to 39.9 with comorbidity ([facility]) Note: Being Active Goal: Go for [...] Alcohol abuse - Primary Alcohol abuse, unspecified Severe episode of recurrent major depres sive disorder, without psychotic features (HCC) documented in this encounter Care Teams Pizzamaker Relationship Specialty Start Date End Date Madi Cook, ASSISTANT CASINO SHIFT MANAGER PCP - General Family Medicine - Primary 11/03/[address] [place] [address] [phone] documented as of this encounter
--- OUTSIDE RECORDS SUMMARY | 2022-06-05 06:49 | XMS_ITS | Encounter Summary ---
:1990 Author Organization [facility] Address [address] [place] [address] Care Team Providers Name Role Phone Madi Cook NP Primary Care Provider Reason for Visit Reason Onset Date Comments Returning Call 02/12/2022 Encounter Details Date Type Department Care Team Description 02/12/2022 Telephone [facility] Family Medicine Fidelia Goldberg , Returning Call [facility] PSYCH-MA [address] 130 [facility] [address] [place] [address] [place] [phone] (Wo rk) Social History Tobacco Use Types [...] this encounter Miscellaneous Notes Telephone Encounter - Fidelia Goldberg, PSYCH-MA - 02/12/2022 1020 EDT Returned Gonzalez's call - Left a message for him to call me back if he would like. We have an appointment booked for February 14. documented in this encounter Plan of Treatment [...] 39.9 with comorbidity ([facility]) Note: Being Active Goal: Go for a walk 4 times per week for 20 minutes. The patient's confidence level, sources of support and barriers to change were assessed. Pertinent information is documented in the visit encounter. Counseling was provided to assess readiness, confidence and/or barriers to self-care. To learn more about your health please v isit: [facility] Wellness Resource documented as of this encounter Visit Diagnoses Not on filedocumented in this encounter Care Teams Group Home Manager Relationship Specialty Start Date End Date Madi Cook, POULTRY GRADER PCP - General Family Medicine - Primary 11/03/[address] [place] [address] [phone] documented as of this encounter
--- OUTSIDE RECORDS SUMMARY | 2022-06-05 06:49 | XMS_ITS | Encounter Summary ---
:1990 Author Organization [facility] Address [address] [place] [address] Care Team Providers Name Role Phone Madi Cook NP Primary Care Provider Reason for Referral PT/OT/ST (See Order Priority) - Closed Specialty Diagnoses / Procedures Referred By Contact Refer red To Contact Rehab Therapies Diagnoses Low back pain, unspecified back pain laterality, unspecified chronicity, unspecified whether sciatica present Acute pain of left shoulder Madi Cook NP [facility] 130 [facility] [address] [place] [address] [address] [place] [address] [place] [address] Fax: Referral ID Status Reason Start Date Expiration Date Visits V isits Requested Authorized [id number] Closed Specialty 12/29/2021 1 1 Services Required Question Answer Reason for Request: low back pain and left shoul stephanie pain. back is more of an issue. onsult (See Order Priority) - Closed Specialty Diagnoses / Procedures Referred By Contact Refer red To Contact Ophthalmology Diagnoses Nonintractable headache, unspecified chronicity pattern, unspecified headache type Visual changes Madi Cook NP [facility] [address] [facility] [address] [place] [address] [place] [address] Fax: Referral ID Status Reason Start Date Expiration Date Visits V isits Requested Authorized [id number] Closed Specialty 12/29/2021 1 1 Services Required Question Answer Reason for Request: Other, in comments field Specify which eye: Both Onset/Duration (new problem)? new onset headahces and likely needs glasses. 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 Follow-up: Patient has had some acute left shoulder pain as well as some back pain since a fall at work. Referral done to PT. He was seen in [facility] and had a negative x-ray of his shoulder. Follow-up if he has any new or worsening symptoms. Headaches: Referral done to ophthalmology for vision eval for corrective lenses. Follow-up as needed. Diagnoses and all orders for this visit: Nonintractable headache, unspecified chronicity pattern, unspecified headache type - AMB CONS/FOLLOW UP OPHTHALMOLOGY Visual changes - AMB CONS/FOLLOW UP OPHTHALMOLOGY Low back pain, unspecified back pain laterality, unspecified chronicity, unspecified whether sciatica present - AMB CONS/FOLLOW UP PHYSICAL THERAPY - [facility] Acute pain of left shoulder - AMB CONS/FOLLOW UP PHYSICAL THERAPY - [facility] No follow-ups on file. Patient education was direct. Barriers were assessed and addressed as needed. Subjective Zeeshan Gonzalez Jr. is a 31 y.o. 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 Patient fell off of a truck about 4 feet recently. This was done at work. He has lower back pain chronically and has had a previous herniated disc. His low back is a bit more painful than usual. He has done PT in the past and is open to doing this again. He was seen in [facility] after his fall and did have an x- ray of the shoulder without any issues noted. He is using methocarbamol which does help for the pain. Headaches: Patient was seen for headaches recently and I suggested that he see an eye doctor as his vision suggested that he needed corrective lenses. He has not had time to do this yet. He would like a referral to an chair maker. Data reviewed this visit: problem list/past medical history, current medications, allergies and recent Urgent Care visit record Review of Systems - See HPI The concept of ???Telemedicine?? has been described [...] Home Patient location state: Visit Location State: [place] The location of the provider: Clinic Exam Room Provider location state: Visit Location State: [place] The following people and their roles were present for today's visit: Appointment Provider: Madi Cook NP patient Madi Cook NP Objective There were no vitals taken for this visit. Physical Exam documented in this encounter Plan of Treatment Scheduled Referrals Name Type Priority Associated Diagnoses Order S chedule AMB CONS/FOLLOW UP Outpatient Routine/Next Nonintractable Expecte d: OPHTHALMOLOGY Referral Available headache, 01/26/2022 unspecified (Approximate), chronicity pattern, Expires: unspecified headache 023 type Visual changes AMB CONS/FOLLOW UP Outpatient Routine/Next Low back pain, Expecte d: PHYSICAL THERAPY - Referral Available unspecified back 01/26 [facility] pain laterality, (Approximat e), unspecified Expires: chronicity, 12/29/2022 unspecified whether sciatica present Acute pain of left shoulder documented as of this encounter Goals Goal Patient Goal Associated Recent Patient-Stated? Author Type Problems Progress Blood Pressure Blood Pressure Hypertensive 145/96 No Vosb urg, < 130/80 disorder (06/04/2022 SHIRA Boyd 13:12 EDT) Being Active General Severe obesity No Jesse, with body mass TelisaALLIE index (BMI) of 35.0 to 39.9 with comorbidity ([facility]) Note: Being Active Goal: Go for [...] as of this encounter Visit Diagnoses Diagnosis Nonintractable headache, unspecified chr onicity pattern, unspecified headache type - Primary Visual changes Unspecified visual disturbance Low back pain, unspecified back pain lat erality, unspecified chronicity, unspecified whether sciatica present Acute pain of left shoulder documented in this encounter Care Teams Tire Building Supervisor Relationship Specialty Start Date End Date Madi Cook ROLL MACHINE OPERATOR PCP - General Family Medicine - Primary 11/03/[address] [place] [address] [address] [place] [phone] documented as of this encounter
--- OUTSIDE RECORDS SUMMARY | 2022-06-05 06:49 | XMS_ITS | Encounter Summary ---
:1990 Author Organization [facility] Address [address] [place] [address] Care Team Providers Name Role Phone Rogelio Dominguez MD Primary Care Provider Encounter Details Date Type Department Care Team Description 02/27/2021 Phlebotomy Only [facility] - Cr infante congestion; [employer] Sore throat; [address] [facility] Exposure to COVID-19 [place] [address] Social History Tobacco Use Types Packs/Day Years [...] No Vosb urg, < 130/80 disorder (06/04/2022 Deb, BROWN SOURER 13:12 EDT) Being Active General Severe obesity No Jesse, with body mass Telisa, LP N index (BMI) of 35.0 to 39.9 with comorbidity ([facility]) Note: Being Active Goal: Go for a walk 4 times per week for 20 minutes. The patient's confidence level, sources of support and barriers to change were assessed. Pertinent information is documented in the visit encounter. Counseling was provided to assess readiness, confidence and/or barriers to self-care. To learn more about your health please v isit: [facility] Wellness Resource documented as of this encounter Procedures Procedure Name Priority Date/Time Associated Diagnosis Comme nts COVID-19 TEST [facility] Today 02/27/2021 15:37 Nasal conge stion LAB PCR EDT Sore throat Exposure to COVID-19 virus COVID-19 TESTING Routine 02/27/2021 15:37 Nasal congesti on Results for this EDT Sore throat procedure are in Exposure to COVID-19 the res ults virus section. documented in this encounter Results COVID-19 TEST [facility] LAB PCR (02/27/2021 15:37 EDT) Specimen Swab - Entire nasopharynx (body structur e) Performing Organization Address City/State/ZIP Code Phon e Number [facility]OR[facility]ORY [address] [place] [address] SERVICES (ABNORMAL) COVID-19 TESTING (02/27/2021 15:37 EDT) COVID-19 rt-PCR Positive (AA) Negative [facility] Result Comment: LABORATORY This test has [...] revoked sooner. Testing was performed using the tasneem SARS-CoV-2 assay ([employer] on the Tasneem 6800 System Performing Lab Tasneem 6800 [facility] Lab [facility] SERVICES Specimen Swab - Entire nasopharynx (body structur e) Performing Organization Address City/State/ZIP Code Phon e Number [facility] [address] [place] [address] SERVICES documented in this encounter Visit Diagnoses Diagnosis Nasal congestion Other diseases of nasal cavity and sinus es Sore throat Acute pharyngitis Exposure to COVID-19 virus documented in this encounter Additional Health Concerns Infection Onset Date Last Indicated Resolved Time R/O COVID-19 02/27/2021 02/27/2021 03/04/2021 22:15 EDT documented as of this encounter Care Teams Tub Tender Relationship Specialty Start Date End Date Rogelio Dominguez MD PCP - General Family Medicine - Primary 02/02/21 [address] [place], [place] [address] [phone] documented as of this encounter
--- OUTSIDE RECORDS SUMMARY | 2022-06-05 06:49 | XMS_ITS | Encounter Summary ---
:1990 Author Organization [facility] Address [address] [place] [address] Care Team Providers Name Role Phone Madi Cook NP Primary Care Provider Reason for Visit Reason Comments Alcohol Problem Encounter Details Date Type Department Care Team Description [facility]/09[facility] [place] Fidelia Goldberg, Alcohol abuse (Primary Medicine [facility] PSYCH-MA Dx) [address] [place] [address] [place], [place] [phone] Social History Tobacco Use Types Packs/Day Years [...] as of this encounter Progress Notes Fidelia Goldberg, PSYCH-MA - 01/09/2022 1430 EST Psychologist Note Name: Zeeshan Gonzalez Jr. : 1990 Symptoms Discussed: Alcohol use, reactivity Treatment Plan: Continue Individual Therapy Prognosis: Progress is monitored via FIT. ORS is declined Progress to Date: PHI: Time in session 45 mins Managed care session/count: Rationale for type and frequency of treatment. Treatment is evidence supported CBT at the least frequency that will support treatment goals. GAF: 50 PHQ: GRETCHEN: AUDIT: risky use Medical Issues to Communicate Heavy alcohol use Subjective: Patient presented symptoms listed above. Zeeshan reports that things have happened that have been difficult - his mother is in hospital with septicemia and other infections. is ex partner is being a bitch and his older daughter was very dismissive when he dropped off her birthday present. Objective: Mood depressed, affect congruent. Though process and content normal. Oriented. Assessment: Depression, alcohol abuse difficulties with reactivity and managing interpersonal and other stresses. Intervention: [place] around alcohol use. Explored values and reasons for change. Discussed how he manages his reactivity at work and ways to transfer this to other parts of his life. Plan: Work on monitoring alcohol use. Observe how he manages reactivity at work. Thins about reasonsfor managing reactivity elsewhere eg being a good parent - being a model adult for my kids. Next in 3-4 weeks. after I return from leave. documented in this encounter Plan of Treatment [...] 35.0 to 39.9 with comorbidity ([facility]) Note: Being Active Goal: Go for a walk 4 times per week for 20 minutes. The patient's confidence level, sources of support and barriers to change were assessed. Pertinent information is documented in the visit encounter. Counseling was provided to assess readiness, confidence and/or barriers to self-care. To learn more about your health please v isit: [facility] Wellness Resource documented as of this encounter Visit Diagnoses Diagnosis Alcohol abuse - Primary Alcohol abuse, unspecified documented in this encounter Care Teams Remote Encoding Center Manager Relationship Specialty Start Date End Date Madi Cook, BEE WORKER PCP - General Family Medicine - Primary 11/03/[address] [place] [address] [address] [place] [phone] documented as of this encounter
--- OUTSIDE RECORDS SUMMARY | 2022-06-05 06:49 | XMS_ITS | Encounter Summary ---
:1990 Author Organization [facility] Address [address] [place] [address] Care Team Providers Name Role Phone Madi Cook NP Primary Care Provider Reason for Visit Reason Comments Depression Alcohol Use Encounter Details Date Type Department Care Team Description 02/15/2022 Telemedicine [facility] Family Fidelia Goldberg, Alcohol abuse (Primary Medicine [facility] PSYCH-MA Dx) [address] [place] [address] [place], [place] [phone] Social History Tobacco Use Types Packs/Day Years [...] encounter Progress Notes Fidelia Goldberg, PSYCH-MA - 02/15/2022 1288 EDT Psychologist Note Name: Zeeshan Gonzalez Jr. : 1990 TELEMEDICINE VIDEO VISIT Today's visit was provided through telemedicine video conferencing: I have reviewed the appropriateness of using video technology with the patient with regards to today's visit. The location of the patient : Workplace Patient location state: Visit Location State: [place] The location of the provider: Office Provider location state: Visit Location State: [place] The following people and their roles were present for today's visit: Appointment Provider: Fidelia Goldberg PSYCH-MA Kay E Barrett, PSYCH-MA Symptoms Discussed: Alcohol use, reactivity Treatment Plan: Continue Individual Therapy Prognosis: Progress is monitored via FIT. ORS is declined Progress to Date: PHI: Time in session 25 mins Managed care session/count: Rationale for type and frequency of treatment. Treatment is evidence supported CBT at the least frequency that will support treatment goals. GAF: 50 PHQ: GRETCHEN: AUDIT: risky use Medical Issues to Communicate Heavy alcohol use Subjective: Shean at work - hard to get the time to do this. Is having a hard time - but reports drinking less - so feels good about that. Objective: Mood depressed, affect congruent. Though process and content normal. Oriented. Assessment: Depression, alcohol abuse difficulties with reactivity and managing interpersonal and other stresses. Intervention: Continue [place] around alcohol use. Plan: Work on monitoring alcohol use. Observe how he manages reactivity at work. Thins about reasonsfor managing reactivity elsewhere eg being a good parent - being a model adult for my kids. Next in one week. documented in this encounter Plan of Treatment Not on filedocumented as of this encounter Goals Goal Patient Goal Associated Recent Patient-Stated? Author Type Problems Progress Blood Pressure Blood Pressure Hypertensive 145/96 No Vosb urg, < 130/80 disorder (06/04/2022 SHIRA Boyd 13:12 EDT) Being Active General Severe obesity No Jesse, with body mass TelALLIE german index (BMI) of 35.0 to 39.9 with comorbidity ([facility]) Note: Being Active Goal: Go for a walk 4 times per week for 20 minutes. The patient's confidence level, sources of support and barriers to change were assessed. Pertinent information is documented in the visit encounter. Counseling was provided to assess readiness, confidence and/or barriers to self-care. To learn more about your health please v isit: [facility] Wellness Resource documented as of this encounter Visit Diagnoses Diagnosis Alcohol abuse - Primary Alcohol abuse, unspecified documented in this encounter Care Teams Selling Underwriter Relationship Specialty Start Date End Date Madi Cook, MANAGER MEDIA RELATIONS PCP - General Family Medicine - Primary 11/03/[address] [place] [phone] documented as of this encounter
--- OUTSIDE RECORDS SUMMARY | 2022-06-05 06:49 | XMS_ITS | Encounter Summary ---
:1990 Author Organization [facility] Address [address] [place] [address] Care Team Providers Name Role Phone Beverly Mix MD Primary Care Provider Reason for Visit Reason Onset Date Comments Results 08/19/2020 Encounter Details Date Type Department Care Team Description 08/19/2020 Telephone [facility] Urgent Gavi Helton MD Results Care - [address] [address] [place] [address] [phone] (Wo rk) Social History Tobacco Use Types [...] this encounter Miscellaneous Notes Telephone Encounter - Aron Diaz RN - 08/20/2020 1357 EDT Pt notified of covid negative result. All questions answered elephone Encounter - Baldev Heart RN - 08/19/2020 1828 EDT Pt did not answer and has a voice mailbox that is not set up. Will try again at a later time. elephone Encounter - Lisa Huang PA-C - 08/19/2020 1823 EDT Please call and let the patient know that covid19 testing was negative. Thank you. documented in this encounter Plan of Treatment [...] 35.0 to 39.9 with comorbidity ([facility]) Note: Being Active Goal: Go for a walk 4 times per week for 20 minutes. The patient's confidence level, sources of support and barriers to change were assessed. Pertinent information is documented in the visit encounter. Counseling was provided to assess readiness, confidence and/or barriers to self-care. To learn more about your health please v isit: [facility] Wellness Resource documented as of this encounter Visit Diagnoses Not on filedocumented in this encounter Additional Health Concerns Infection Onset Date Last Indicated Resolved Time R/O COVID-19 08/18/2020 08/18/2020 08/23/2020 22:16 EDT documented as of this encounter Care Teams Protozoologist Relationship Specialty Start Date End Date Beverly Mix MD PCP - General Family Medicine - Primary 05/18/20 1 [address] [place] [address] documented as of this encounter
--- OUTSIDE RECORDS SUMMARY | 2022-06-05 06:49 | XMS_ITS | Encounter Summary ---
:1990 Author Organization [facility] Address [address] [place] [address] Care Team Providers Name Role Phone Rogelio Dominguez MD Primary Care Provider Reason for Visit Reason Comments Back Pain Lower right sided back pain. Pain down right leg. Pt has been ongoing, worse the last couple of day s. Encounter Details Date Type Department Care Team Description 02/02/2021 Emergency [facility] Job Andres MD Acute right-sided low Emergency Department 111 [facility] back pain with - [facility] right-sided sciatica [address] [facility], Level 1 (Primary Dx) [place] [address] [place], [place] [phone] (Wo rk) Social History Tobacco Use Types [...] Sign Reading Time Taken Comments Blood Pressure 131/82 02/02/2021 1029 EDT Pulse 83 02/02/2021 1029 EDT Temperature 37.8 ??C (100 ??F) 02/02/2021 1029 EDT Respiratory Rate 18 02/02/2021 1029 EDT Oxygen Saturation 98% 02/02/2021 1029 EDT Inhaled Oxygen Concentration - - Weight 104.3 kg (230 lb) 02/02/2021 1029 EDT Height 165.1 cm (5' 5) 02/02/2021 1029 EDT Body Mass Index 38.27 02/02/2021 1029 EDT documented in this encounter Functional Status [...] documented as of this encounter Discharge Instructions Job Madrid MD - 02/02/2021 Sleep on a firm surface. Avoid sitting, lifting, or bending. Do walk about 10-15 minutes on flat ground 3 times a day. Ice packs to low back. Take the prescribed medicine as directed. Also take ibuprofen, 3 eyqk-jlw-euidder tablets (600 mg) 3times a day with food. Call [facility] or [place] [facility] primary care to arrange a regular doctor and for recheck and physical therapy. Return to ER if weakness of legs, loss of bowel or bladder control, or other new unexplained symptoms. documented in this encounter Medications at Time of Discharge Medication Sig Dispensed Refills Start Date End Date methylPREDNISolone (MEDROL, follow package 1 Pack 0 01/16 ILIANA,) 4 mg tablet directions acyclovir (ZOVIRAX) 200 mg 2 tablets every 8 60 Cap 0 02/08/2021 capsule hours for 10 days methocarbamoL (ROBAXIN) 750 Take 1 Tab by 15 Tab 0 02/0202/08/2021 mg tablet mouth every 6 hours as needed for Muscle Spasms. documented as of this encounter Ordered Prescriptions Prescription Sig Dispensed Refills Start Date End Date methylPREDNISolone (MEDROL, follow package 1 Pack 0 01/16 ILIANA,) 4 mg tablet directions methocarbamoL (ROBAXIN) 750 Take 1 Tab by 15 Tab 0 02/0202/08/2021 mg tablet mouth every 6 hours as needed for Muscle Spasms. documented in this encounter Discharge Disposition Disposition Code Departure Means Destination Home or Self Intermediate documented in this encounter ED Notes Job Andres MD - 02/02/2021 1259 EDT This patient received an evaluation and medical screening exam for emergent medical conditions at the [facility] on 02/02/2021 HPI Zeeshan Gonzalez Jr. is a 30 y.o. male with PMH iwho presents to the ED for increasing low back pain now radiating to the right buttock and leg. He reports that he fell while helping a friend move in a [employer] truck about 2 weeks ago. He says it did not really hurt very much at the time but that over the next couple of days started having increasing low back pain radiating into the buttock and now down to his calf on the right. He does report that he has had intermittent back pain in the past. 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 He has been trying to work since then but has increasing pain. No numbness tingling or weakness. No loss of bowel or bladder control. No abdominal pain nausea or vomiting. He has not tried any medication for the pain. History was provided by: Patient Patient's pertinent PMH, FH, SH were reviewed and updated as needed. ROS As above noted in HPI, otherwise negative. Physical Exam Vital Signs Vitals Reassessment?: Yes Temp: 37.8 ??C (100 ??F) Temp src: Temporal Pulse: 83 Resp: 18 SpO2: 98 % BP: 131/82 BP Device: BP Machine BP Patient Position: Sitting BP Cuff Location: Right arm Nursing notes and vital signs were reviewed. Constitutional: Well appearing in no acute distress He is moving stiffly. Back has mild midline tenderness about L3-L5. There is more pronounced right-sided paraspinous tenderness with some spasm. Tenderness over the right sciatic notch. He has a positive straight leg raise on the right but not on the left. Deep tendon reflexes absent bilaterally but poor relaxation. No fasciculation. No atrophy. Motor 5 out of 5. Sensation intact. Medical Decision Making The differential diagnosis for this patient includes but is not limited to: Lumbar strain, disc herniation with sciatica Laboratory, Imaging, and Other Data Results Labs Reviewed - No data to display Imaging Results XR LUMBAR SPINE 2-3 VIEWS (Final result) Result time 02/02/21 11:48:36 Final result Impression: Mild intervertebral disc height loss at L5-S1. No fracture identified. I have personally reviewed the images and the above interpretation and agree with the findings. Narrative: XR LUMBAR SPINE 2-3 VIEWS 02/02/2021 11:30 AM Clinical History/Comments: fall, lumbar pain r sciatica Comparison: CT abdomen pelvis February 26, 2013. Technique: Upright AP and lateral views lumbar spine were obtained. Findings: There is identified. The vertebral body heights are preserved. Mild intervertebral disc height loss at L5-S1. The remaining intervertebral disc heights are preserved. No apparent facet arthropathy. SI joints are symmetric. The imaged soft tissues are grossly unremarkable. Preliminary result Impression: Mild intervertebral disc height loss at L5-S1. No fracture identified. Narrative: PRELIMINARY REPORT XR LUMBAR SPINE 2-3 VIEWS 02/02/2021 11:30 AM Clinical History/Comments: fall, lumbar pain r sciatica Comparison: CT abdomen pelvis February 26, 2013. Technique: Upright AP and lateral views lumbar spine were obtained. Findings: There is identified. The vertebral body heights are preserved. Mild intervertebral disc height loss at L5-S1. The remaining intervertebral disc heights are preserved. No apparent facet arthropathy. SI joints are symmetric. The imaged soft tissues are grossly unremarkable. (All pertinent data was obtained, reviewed, and interpreted by me, contemporaneously with patient care. Radiology interpretation also reviewed, if available.) Procedures ED Course A medical screening exam was performed. Patient presents with somewhat progressive low back pain with now right-sided sciatic symptoms. He does have a positive straight leg raise on the right so I do suspect disc herniation. Because of the fall with history of trauma, I did get plain films of the lumbar spine which showed no fracture but does show intervertebral height loss at L5-S1. He has no motor symptoms and no symptoms of cauda equina. Unfortunate he also has no primary care provider at this point. I will prescribe him a Medrol Dosepak, Robaxin and have him start taking ibuprofen. We discussed home care of his back pain and I have urged him to take a week off work and have provided him with a work note for this. He will need to arrange primary care either at [facility] or through the [facility] system. He would be a good candidate for physical therapy initially. However if not responsive this may require spine consultation. Warned to return if he does have loss of bowel or bladder control, motor weakness, or other new symptoms. He is discharged in stable condition. Clinical Impression Final diagnoses: Acute right-sided low back pain with right-sided sciatica Pain Management While under my care in the Emergency Department, the patient's pain was managed to an adequate levelweighing risk vs. benefit of medication. Disposition Condition at Discharge: Stable Pain level at discharge: 02/25 Disposition decisions were made weighing risks and benefits of hospitalization vs. outpatient treatment, the risk for further decompensation, and the patient's wishes. - If discharged: the patient was stable, improved, or requested discharge. Prior to discharge my usual and customary return precautions were reviewed with the patient and/or family. This included follow-up instructions and reasons to return to the Emergency Department if condition worsens, does not improve as expected, or other new concerns arise. - If admitted: the patient???s condition was severe enough to require additional inpatient evaluation and treatment, or the patient was at risk of sudden decompensation. utBrenda dobbs RN - 02/02/2021 1137 EDT Pt ROBERTO CARLOS for imaging documented in this encounter Plan of Treatment Not on filedocumented as of this encounter Goals Goal Patient Goal Associated Recent Patient-Stated? Author Type Problems Progress Blood Pressure Blood Pressure Hypertensive 145/96 No Vosb urg, < 130/80 disorder (06/04/2022 SHIRA Boyd 13:12 EDT) Being Active General Severe obesity No Jesse, with body mass TelisaALLIE index (BMI) of 35.0 to 39.9 with comorbidity ([facility]) Note: Being Active Goal: Go for a walk 4 times per week for 20 minutes. The patient's confidence level, sources of support and barriers to change were assessed. Pertinent information is documented in the visit encounter. Counseling was provided to assess readiness, confidence and/or barriers to self-care. To learn more about your health please v isit: [facility] Wellness Resource documented as of this encounter Procedures Procedure Name Priority Date/Time Associated Diagnosis Comme nts XR LUMBAR SPINE 2-3 STAT 02/02/2021 11:42 Resu lts for this VIEWS EDT procedure are i n the results section. documented in this encounter Results XR LUMBAR SPINE 2-3 VIEWS (02/02/2021 11:42 EDT) Anatomical Region Laterality Modality Spine Computed Radiography Specimen Impressions [facility] - 02/02/2021 11:48 EDT Mild intervertebral disc height loss at L5-S1. No fracture identified. I have personally reviewed the images an d the above interpretation and agree with the findings. Narrative [facility] - 02/02/2021 11:48 EDT XR LUMBAR SPINE 2-3 VIEWS ??02/02/2021 11:30 AM Clinical History/Comments: fall, lumbar pain r sciatica Comparison: CT abdomen pelvis February 26, 2013. Technique: Upright AP and lateral views lumbar spine were obtained. ?? Findings: There is identified. The verte bral body heights are preserved. Mild intervertebral disc height loss at L5-S1. The remaining intervertebral disc heights are preserved. No apparent facet arthrop athy. SI joints are symmetric. The image d soft tissues are grossly unremarkable. Procedure Note Shane Flores MD - 02/03/20 21 XR LUMBAR SPINE 2-3 VIEWS 02/02/2021 11:3 0 AM Clinical History/Comments: fall, lumbar pain r sciatica Comparison: CT abdomen pelvis February 26, 2013. Technique: Upright AP and lateral views lumbar spine were obtained. Findings: There is identified. The verte bral body heights are preserved. Mild intervertebral disc height loss at L5-S1. The remaining intervertebral disc heights are preserved. No apparent facet arthropathy. SI joints are symmetric. The imaged soft tissues are grossly unremarkable. IMPRESSION Mild intervertebral disc height loss at L5-S1. No fracture identified. I have personally reviewed the images an d the above interpretation and agree with the findings. Performing Organization Address City/State/ZIP Code Phon e Number [facility] documented in this encounter Visit Diagnoses Diagnosis Acute right-sided low back pain with rig ht-sided sciatica - Primary documented in this encounter Administered Medications Inactive Administered Medications - up to 3 most recent administrations Medication Order MAR Action Action Date Dose Rate Site ibuprofen (MOTRIN) tablet 600 mg Given 02/02/2021 12:08 EDT 600 mg 600 mg, oral, NOW X1, 1 dose, On Carine 02/02/21 at 1200, STAT documented in this encounter Active and Recently Administered Medications Times are shown in EDT. Scheduled Medication Order 01/31/2021 02/01/2021 02/02/2021 ibuprofen (MOTRIN) tablet 600 mg (COMPLETED) 1208 (Given - Provider: Felicita Isbell RN) 600 mg, oral, NOW X1, 1 dose, Carine 02/02/21 at 1200, STAT documented in this encounter Orders Medications Ordered That Might Not Have Count Last Ord ered Date First Ordered Date Been Administered ibuprofen (MOTRIN) tablet 600 mg 1 02/02/2021 documented in this encounter Care Teams Quality Control Analyst Relationship Specialty Start Date End Date Rogelio Dominguez MD PCP - General Family Medicine - Primary 02/02/21 [address] [place] [address] documented as of this encounter
--- OUTSIDE RECORDS SUMMARY | 2022-06-05 06:49 | XMS_ITS | Encounter Summary ---
:1990 Author Organization [facility] Address [address] [place] [address] Care Team Providers Name Role Phone Mary Kate Mcduffie MD Primary Care Provider Encounter Details Date Type Department Care Team Description 04/09/2020 Travel Social History Tobacco Use Types Packs/Day [...] on filedocumented in this encounter Care Teams Cutter V Groove Relationship Specialty Start Date End Date Mary Kate Mcduffie MD PCP - General Family Medicine - Primary 01/08/20 [facility] documented as of this encounter
--- OUTSIDE RECORDS SUMMARY | 2022-06-05 06:49 | XMS_ITS | Encounter Summary ---
:1990 Author Organization [facility] Address [address] [place] [address] Care Team Providers Name Role Phone Rogelio Dominguez MD Primary Care Provider Reason for Visit Reason Onset Date Comments Patient Outreach 03/20/2021 Encounter Details Date Type Department Care Team Description 03/20/2021 Telephone [facility] Rogelio Dominguez MD Patient Outreach Family Medicine [facility] [id number] [place] [id number] [phone] Social History Tobacco Use Types Packs/Day Years [...] this encounter Miscellaneous Notes Telephone Encounter - Jaspal Whitelie - 03/20/2021 0960 EDT I spoke with Zeeshan regarding his annual physical, at this time Zeeshan is planning on moving out of town and will establish care elsewhere. Noemi White 03/20/2021 9:18 documented in this encounter Plan of Treatment [...] 35.0 to 39.9 with comorbidity ([facility]) Note: Being Active Goal: Go for a walk 4 times per week for 20 minutes. The patient's confidence level, sources of support and barriers to change were assessed. Pertinent information is documented in the visit encounter. Counseling was provided to assess readiness, confidence and/or barriers to self-care. To learn more about your health please v isit: [facility] Wellness Resource documented as of this encounter Visit Diagnoses Not on filedocumented in this encounter Additional Health Concerns Infection Onset Date Last Indicated Resolved Time COVID-19 02/27/2021 02/27/2021 03/29/2021 22:15 EDT documented as of this encounter Care Teams Roll Tender Relationship Specialty Start Date End Date Rogelio Dominguez MD PCP - General Family Medicine - Primary 02/02/21 [address] [place] [address] documented as of this encounter
--- OUTSIDE RECORDS SUMMARY | 2022-06-05 06:49 | XMS_ITS | Encounter Summary ---
:1990 Author Organization [facility] Address [address] [place] [address] Care Team Providers Name Role Phone Michael Sandoval MD Primary Care Provider [phone] Encounter Details Date Type Department Care Team Description 07/31/2019 Travel Social History Tobacco Use Types Packs/Day [...] on filedocumented in this encounter Care Teams Cook Larder Relationship Specialty Start Date End Date Michael Sandoval MD PCP - General 06/06/18 09/28/19 documented as of this encounter
--- OUTSIDE RECORDS SUMMARY | 2022-06-05 06:49 | XMS_ITS | Encounter Summary ---
:1990 Author Organization [facility] Address [address] [place] [address] Care Team Providers Name Role Phone Madi Cook NP Primary Care Provider Reason for Referral Consult (Routine/Next Available) - Closed Specialty Diagnoses / Procedures Referred By Contact Refer red To Contact Otolaryngology Diagnoses Skin lesion Madi Cook, FINANCE BUSINESS PARTNER [facility] [address] [facility] [address] [facility] [address] [phone] [place] [address] Fax: Referral ID Status Reason Start Date Expiration Date Visits V isits Requested Authorized [id number] Closed Specialty 11/24/2021 1 1 Services Required Question Answer Reason for Request: Other Please specify: skin growth next to left out er eye. wants removed. Reason for Visit Reason Comments Eye Problem increased difficulty with vi robby. patient reports streaking at times. frequent CONTI's Encounter Details Date Type Department Care Team Description 11/24/2021 Office Visit [facility] Madi Cook, Jovanit er for vision screening (Primary Dx); Medicine [place] FINANCE BUSINESS PARTNER Skin lesion; [address] [facility] Severe episode of recurrent major depres sive disorder, without psychotic features (HCC) [address] [place] [address] [place], [place] [phone] Social History Tobacco Use Types Packs/Day [...] Sign Reading Time Taken Comments Blood Pressure 134/72 11/24/2021 1434 EST Pulse 96 11/24/2021 1434 EST Temperature - - Respiratory Rate 12 11/24/2021 1434 EST Oxygen Saturation 98% 11/24/2021 1434 EST Inhaled Oxygen Concentration - - Weight 110.2 kg (243 lb) 11/24/2021 1434 EST Height - - Body Mass Index 40.44 02/16/2021 0954 EDT documented in this encounter [...] encounter Progress Notes Madi Cook NP - 11/24/2021 1430 EST Family Medicine Office Visit Assessment & Plan 31-year-old male patient seen in the office today for vision issues. He has some blurred vision at times and trouble seeing distances. Has had some headaches as well. We checked his vision today and hedid have decreased visual acuity. I suspect most of his issues are related to decreased visual acuity and that he might need glasses. If this does not take care of his issue he will let me know we can look into this further. Skin lesion: This is noted on the left left eye on the lateral corner. He would like this removed. Referral done to ENT to see if they can remove this for him. Mental health: Patient at her last visit was working on trying to find a counselor. He recently got insurance and is still working on this. He will let me know if he needs any help. Diagnoses and all orders for this visit: Encounter for vision screening Skin lesion - AMB CONS/FOLLOW UP ENT Severe episode of recurrent major depressive disorder, without psychotic features (HCC) No follow-ups on file. Patient education was direct. Barriers were assessed and addressed as needed. Subjective Zesehan Gonzalez Jr. is a 31 y.o. male presenting with Eye Problem (increased difficulty with vision. patient reports streaking at times. frequent CONTI's) HPI 31-year-old male patient seen in the office today for eye issues. He states that he has had some blurred vision ongoing for the last month or 2. He states that lights cause some streaking into vision at times. He also has a hard time driving at night. He has had no pain in the eyes or discharge from the eyes. He has had no sick symptoms. He does have a skin lesion on the lateral corner of his left eye that he would like removed. He also states that he has had some more frequent headaches mostly on the left side of his head. Data reviewed this visit: problem list/past medical history, current medications and allergies Review of Systems - See HPI Objective BP 134/72 Pulse 96 Resp 12 Wt (!) 110.2 kg (243 lb) SpO2 98% BMI 40.44 kg/m?? Physical Exam Vitals and nursing note reviewed. Constitutional: General: He is not in acute distress. Appearance: Normal appearance. He is well-developed. Eyes: General: Right eye: No discharge. Left eye: No discharge. Extraocular Movements: Extraocular movements intact. Right eye: No nystagmus. Left eye: No nystagmus. Conjunctiva/sclera: Conjunctivae normal. Pupils: Pupils are equal, round, and reactive to light. Comments: Skin growth on left lateral corner of eye. Neurological: Mental Status: He is alert. Psychiatric: Mood and Affect: Mood normal. Behavior: Behavior normal. Thought Content: Thought content normal. documented in this encounter Plan of Treatment Scheduled Referrals Name Type Priority Associated Order Schedule Diagnoses AMB Outpatient Referral Routine/Next Skin lesion Expected : CONS/FOLLOW Available 12/25/2021 [facility] (Approximate), Expires: 11/24/2022 documented as of this encounter Goals Goal Patient Goal Associated Recent Patient-Stated? Author Type Problems Progress Blood Pressure Blood Pressure Hypertensive 145/96 No Vosb urg, < 130/80 disorder (06/04/2022 SHIRA Boyd 13:12 EDT) Being Active General Severe obesity No Jesse, with body mass Telisa, LP N index (BMI) of 35.0 to 39.9 with comorbidity ([facility]) Note: Being Active Goal: Go for a walk 4 times per week for 20 minutes. The patient's confidence level, sources of support and barriers to change were assessed. Pertinent information is documented in the visit encounter. Counseling was provided to assess readiness, confidence and/or barriers to self-care. To learn more about your health please v isit: [facility] Wellness Resource documented as of this encounter Visit Diagnoses Diagnosis Encounter for vision screening - Primary Examination of eyes and vision Skin lesion Unspecified disorder of skin and subcuta neous tissue Severe episode of recurrent major depres sive disorder, without psychotic features ([facility]) documented in this encounter Care Teams Pensionholder Information Clerk Relationship Specialty Start Date End Date Madi Cook, FINANCE BUSINESS PARTNER PCP - General Family Medicine - Primary 11/03/[address] [place] [address] [address] [place] [phone] documented as of this encounter
--- OUTSIDE RECORDS SUMMARY | 2022-06-05 06:50 | XMS_ITS | Encounter Summary ---
:1990 Author Organization [facility] Address [address] [place] [address] Care Team Providers Name Role Phone None, Provider Primary Care Provider Unavailable Madi Monique MD Primary Care Provider Reason for Referral PT/OT/ST (Routine) - Closed Specialty Diagnoses / Procedures Referred By Contact Refer red To Contact Physical Therapy Diagnoses Acute bilateral low back pain with bilateral sciatica Airam Lee MD [address] [place] [phone] Referral ID Status Reason Start Date Expiration Date Visits V isits Requested Authorized [id number] Closed Specialty 02/01/2017 1 1 Services Required Question Answer Reason for Request: Acute back pain Practice Site (External Referral Only): [facility] Reason for Visit Reason Comments New Patient Visit Zeeshan is here today to [facility] with a new primary physician. Post-ED Follow Up He notes a history a back pa in after an injury about a year ago--there is a bulge on t he right side of his low back. Referral Request patient was told to get a re ferral to physical therapy and a MRI from the ED physician Encounter Details Date Type Department Care Team Description 02/01/2017 Office Visit [facility] Unknown, Andrea mabry MD Acute bilateral low back pain with bilat eral sciatica (Primary Dx); Family Medicine - Madi Monique MD [address] [place] [phone] Depression, unspecified depression type; [place] Secondary hypertension [address] [place] [address] Social History Tobacco Use Types Packs/Day Years Used Date Current Every Day Smoker Cigarettes 1 7 Smokeless Tobacco: Never Used Comments: off and on for 7 years Alcohol Use Standard Drinks/Week Comments Yes 0 (1 standard drink = 0.6 oz pure [...] Sign Reading Time Taken Comments Blood Pressure 128/78 02/01/2017 1522 EDT Pulse 84 02/01/2017 1522 EDT Temperature 36.8 ??C (98.3 ??F) 02/01/2017 1522 EDT Respiratory Rate - - Oxygen Saturation - - Inhaled Oxygen Concentration - - Weight 105.2 kg (232 lb) 02/01/2017 1522 EDT Height - - Body Mass Index 34.26 01/27/2017 2020 EDT documented in this encounter Patient Instructions Patient InstructionsMadi Monique - 02/01/2017 15:30 EDT Images from the original note were not included. Take steroids as prescribed. Take muscle relaxant as prescribed. Get set up with PT in [place], this will be the most important thing to do. [facility] Patient Instructions Learning About Relief for Back Pain What is back tension and strain? Back strain happens when you overstretch, or pull, a muscle in your back. You may hurt your back in an accident or when you exercise or lift something. Most back pain will get better with rest and time. You can take care of yourself at home to help your back heal. What can you do first to relieve back pain? When you first feel back pain, try these steps: ?? Walk. Take a short walk (10 to 20 minutes) on a level surface (no slopes, hills, or stairs) every2 to 3 hours. Walk only distances you can manage without pain, especially leg pain. ?? Relax. Find a comfortable position for rest. Some people are comfortable on the floor or a medium-firm bed with a small pillow under their head and another under their knees. Some people prefer to lie on their side with a pillow between their knees. Don't stay in one position for too long. ?? Try heat or ice. Try using a heating pad on a low or medium setting, or take a warm shower, for 15 to 20 minutes every 2 to 3 hours. Or you can buy single- use heat wraps that last up to 8 hours. Youcan also try an ice pack for 10 to 15 minutes every 2 to 3 hours. You can use an ice pack or a bag of frozen vegetables wrapped in a thin towel. There is not strong evidence that either heat or ice will help, but you can try them to see if they help. You may also want to try switching between heat andcold. ?? Take pain medicine exactly as directed. ?? If the doctor gave you a prescription medicine for pain, take it as prescribed. ?? If you are not taking a prescription pain medicine, ask your doctor if you can take an dtyt-ouf-smylyji medicine. What else can you do? ?? Stretch and exercise. Exercises that increase flexibility may relieve your pain and make it easier for your muscles to keep your spine in a good, neutral position. And don't forget to keep walking. ?? Do self-massage. You can use self-massage to unwind after work or school or to energize yourself in the morning. You can easily massage your feet, hands, or neck. Self-massage works best if you are in comfortable clothes and are sitting or lying in a comfortable position. Use oil or lotion to massage bare skin. ?? Reduce stress. Back pain can lead to a vicious point lay ira: Distress about the pain tenses the musclesin your back, which in turn causes more pain. Learn how to relax your mind and your muscles to loweryour stress. Where can you learn more? Go to www.[email or web address].net/[email or web address] or log into your [employer] account at [email or web address].[email or web address] Enter Q517 in the search box to learn more about Learning About Relief for Back Pain. ?? [id number] [employer]. Care instructions adapted under license by [facility] This care instruction is for use with your licensed healthcare professional. If you have questions about a medical condition or this instruction, always ask your healthcare professional. [employer] disclaims any warranty or liability for your use of this information. Content Version: 11.0.492420; Current as of: April 09, 2016 documented in this encounter Ordered Prescriptions Prescription Sig Dispensed Refills Start Date End Date cyclobenzaprine (FLEXERIL) Take 1 Tab by 12 Tab 0 201612/17/2017 10 mg tablet mouth every 8 hours as needed for Muscle Spasms. predniSONE (DELTASONE) 20 Take 3 tabs for 3 20 Tab 0 02/15/2017 mg tablet days, 2 tabs for 3 days, 1 tab for 3 days, 1/2 tab for 3 days. documented in this encounter Progress Notes Airam Lee MD - 02/01/2017 1530 EDT Attestation statement for office patient seen by attending: I saw and examined the patient on the day of this service and agree with the findings and plan of care documented in the resident's/fellow's note. Airam Lee MD Family Medicine Attending 02/06/2017 7:08 Madi Williamson - 02/01/2017 1530 EDT Subjective: Patient ID: Zeeshan Gonzalez Jr. is an 26 y.o. male. Chief Complaint Patient presents with ??? New Patient Visit Zeeshan is here today to establish care with a new primary physician. ??? Post-ED Follow Up He notes a history a back pain after an injury about a year ago--there is a bulge on the right side of his low back. ??? Referral Request patient was told to get a referral to physical therapy and a MRI from the ED physician HPI Here today to establish care. Lives in [place]. Depression since 14. Has tried all medications including wellbutrin. Has kids and a good girlfriend who makes sure he does not hurt himself. Works at [employer] - nights. Since Sep 2016. Back injury happened over one year prior during intercourse - was seen in the ED. Muscle relaxer's did not help then. 6 days prior really increased. Using massager and heat pack. Pain currently 6/10. Sitting and standing is the worst. Radiates down both his legs R>L Got really bad in the car on the way to dinner. Seen in the ED x2 over the weekend, once came in with EMS due to severity of pain. Robaxin did not help. Took valium which also did not help. Has been taking tylenol (650) q6 and ibuprofen (600) q8 - not helping at all. Marijuana also not helping. Took a percocet which helped for 5 minutes and another one which did not help. Has not tried PT Patient Active Problem List Diagnosis ??? Other activity ??? Obesity ??? Acanthosis nigricans ??? Depression ??? Hypertensive disorder ??? Asthma ??? Metabolic syndrome X ??? Abdominal pain ??? GI bleed ??? Right low back pain Past Medical History: Diagnosis Date ??? Asthma ??? Chicken pox As a child ??? Depression Current Outpatient Prescriptions on File Prior to Visit Medication Sig Dispense Refill ??? omeprazole (PRILOSEC) 20 mg capsule Take 40 mg by mouth 2 times daily. Reported on 02/01/2017 No current facility-administered medications on file prior to visit. Allergies Allergen Reactions ??? Cats ??? Pollen Extracts Social Social History Substance Use Topics ??? Smoking status: Current Every Day Smoker Packs/day: 1.00 Years: 7.00 Types: Cigarettes ??? Smokeless tobacco: Never Used Comment: off and on for 7 years ??? Alcohol use Yes Comment: occasionally Review of Systems Constitutional: Negative for chills and fever. Cardiovascular: Negative for chest pain. Gastrointestinal: Negative for abdominal pain, blood in stool and diarrhea. Genitourinary: Negative for dysuria and frequency. Musculoskeletal: Positive for back pain. Negative for falls. Neurological: Negative for sensory change. Psychiatric/Behavioral: Positive for depression. The patient has insomnia. - See HPI Objective: Visit Vitals ??? BP 128/78 (BP Cuff Location: Right arm, Patient Position: Sitting, BP Cuff Sizes: Adult, regular) ??? Pulse 84 ??? Temp 36.8 ??C (98.3 ??F) (Oral) ??? Wt (!) 105.2 kg (232 lb) ??? BMI 34.26 kg/m2 Physical Exam Constitutional: He is oriented to person, place, and time. He appears distressed. HENT: Mouth/Throat: Mucous membranes are moist. Cardiovascular: Normal rate and regular rhythm. Pulmonary/Chest: Effort normal. Abdominal: Soft. Musculoskeletal: Slow movements. reaming machine tender bilaterally over paraspinal muscles of lumbar spine and over SI joints. No spinal process tenderness. + straight leg raise b/l. Negative ASCENCION. Neurological: He is alert and oriented to person, place, and time. He has normal reflexes. Sensation intact in LE and perianal region. Intact heel rise and toe rise. Skin: Skin is warm. He is not diaphoretic. Nursing note and vitals reviewed. Assessment: Plan: Zeeshan was seen today for new patient visit, post-ed follow up and referral request. Diagnoses and all orders for this visit: Acute bilateral low back pain with bilateral sciatica: Third visit for this problem this week. Clearly in distress. No concerning symptoms for cauda equina. Suspect there is an aspect of nerve impingement with muscle spasms exacerbating the situation. Will trial steroid taper and flexeril along with stretching, heat and ice. He is willing to do PT as well. No indication for opioid therapy at this point in time. Do not suspect drug seeking behavior however he has used a few of his mothers pills. If no relief would plan for lumbar and sacral MR to assess. - Amb Consult/Follow Up Physical Therapy - ibuprofen (MOTRIN) 200 mg tablet; Take 600 mg by mouth every 6 hours as needed for Pain. - acetaminophen (TYLENOL) 325 mg tablet; Take 650 mg by mouth every 4 hours as needed for Pain. - predniSONE (DELTASONE) 20 mg tablet; Take 3 tabs for 3 days, 2 tabs for 3 days, 1 tab for 3 days, 1/2 tab for 3 days. - cyclobenzaprine (FLEXERIL) 10 mg tablet; Take 1 Tab by mouth every 8 hours as needed for Muscle Spasms. He does have a long history of depression and while has constant passive suicidal ideation he feels safe and not in danger. Has a safety plan to discuss any changes with his partner. He does have a firearm but both he and his partner feel there is no danger to himself or others. BP is normal today. Will benefit from close f/u to establish care and take care of general health maintenance. Return in about 2 weeks (around 02/15/2017) for back pain. The patient was discussed and seen with attending Dr. Lee at the time of the visit. Madi Monique Family medicine, PGY-3 02/04/2017 documented in this encounter Plan of Treatment Scheduled Referrals Name Type Priority Associated Diagnoses Order S chedule AMB CONS/FOLLOW UP Outpatient Referral Routine Acute Bilateral Low Ordered: PHYSICAL THERAPY Back Pain With 7 Bilateral Sciatica documented as of this encounter Visit Diagnoses Diagnosis Acute bilateral low back pain with bilat eral sciatica - Primary Depression, unspecified depression type Secondary hypertension Other secondary hypertension, unspecifie d documented in this encounter Discontinued Medications Medication Sig Discontinue Reason Start Date End Date DIAZepam (VALIUM) 5 Take 1 Tab by mouth Therapy completed 7 02/01/2017 mg tablet every 8 hours as needed for Other (back pain). Please do not drive, operate machinery, or make important decisions while taking this medication. Daily Max: 15 mg omeprazole (PRILOSEC) Take 1 Cap by mouth Therapy completed 014 02/01/2017 40 mg capsule 2 times daily. omeprazole (PRILOSEC) Take 40 mg by mouth Patient Stopped Taking 02/04/2017 20 mg 2 times daily. capsuleIndications: Reported on Abdominal pain, LFTs 02/01/2017 abnormal documented as of this encounter Historical Medications This list may reflect changes made after this encounter. Medication Sig Dispensed Refills Start Date End Date acetaminophen (TYLENOL) Take 650 mg by 0 03/13/2018 325 mg tablet mouth every 4 hours as needed for Pain. ibuprofen (MOTRIN) 200 mg Take 600 mg by 0 03/13/2018 tablet mouth every 6 hours as needed for Pain. added in this encounter Care Teams Superintendent Nonselling Relationship Specialty Start Date End Date None, Provider PCP - General 01/27/17 02/05/17 Madi Monique MD PCP - General 02/06/17 04/14/17 documented as of this encounter
--- OUTSIDE RECORDS SUMMARY | 2022-06-05 06:50 | XMS_ITS | Encounter Summary ---
:1990 Author Organization [facility] Address [address] [place] [address] Care Team Providers Name Role Phone Cristin Elizabeth NP Primary Care Provider Unavailable Reason for Visit Reason Comments Stress Encounter Details Date Type Department Care Team Description 03/06/2018 Office Visit [facility] Aissatou Aj, Severe episode of Family Medicine - BAND SALVAGER recurrent major [place] [address] [facility] depressive disorder, [address] [place], [place] [phone] features ([facility]) [phone] (Primary Dx) (Work) Social History Tobacco Use Types Packs/Day Years Used Date Current Every Day Smoker Cigarettes 1 7 Smokeless Tobacco: Never Used Comments: off and on for 7 years Alcohol Use Standard Drinks/Week Comments No 0 (1 standard drink = 0.6 oz [...] a physical, mental, or emotional condition, No 02/14/2018 does this person have difficulty doing errands alone such as visiting a doctor's office or shopping? Cognitive Status Response Date of Assessment Because of a physical, mental, or emotional condition, No 02/14/2018 does this person have serious difficulty concentrating, remembering, or making decisions? documented as of this encounter Plan of Treatment Not on filedocumented as of this encounter Visit Diagnoses Diagnosis Severe episode of recurrent major depres sive disorder, without psychotic features (HCC) - Primary documented in this encounter Care Teams Design Sales Consultant Relationship Specialty Start Date End Date Cristin Elizabeth [employer] PCP - General 01/14/18 documented as of this encounter
--- OUTSIDE RECORDS SUMMARY | 2022-06-05 06:50 | XMS_ITS | Encounter Summary ---
:1990 Author Organization [facility] Address [address] [place] [address] Care Team Providers Name Role Phone Michael Sandoval MD Primary Care Provider [phone] Reason for Visit Reason Onset Date Comments No Show 07/03/2019 Encounter Details Date Type Department Care Team Description 07/03/2019 Telephone [facility] Michael Nelson MD No Show [address] [phone] (Wo rk) Social History Tobacco Use Types [...] this encounter Miscellaneous Notes Telephone Encounter - Rajni Nelson - 07/03/2019 1657 EDT Attempted to call patient to offer reschedule of missed appointment today; however, received automated message Not Reachable documented in this encounter Plan of Treatment Not on filedocumented as of this encounter Goals Goal Patient Goal Associated Recent Patient-Stated? Author Type Problems Progress Blood Pressure Blood Pressure Hypertensive 145/96 No Vosb urg, < 130/80 disorder (06/04/2022 SHIRA Boyd 13:12 EDT) documented as of this encounter Visit Diagnoses Not on filedocumented in this encounter Care Teams Driver Engineer Relationship Specialty Start Date End Date Michael Sandoval MD PCP - General 06/06/18 09/28/19 documented as of this encounter
--- OUTSIDE RECORDS SUMMARY | 2022-06-05 06:50 | XMS_ITS | Encounter Summary ---
:1990 Author Organization [facility] Address [address] [place] [address] Care Team Providers Name Role Phone Michael Sandoval MD Primary Care Provider [phone] Reason for Referral Consult (Routine) - Closed Specialty Diagnoses / Procedures Referred By Contact Refer red To Contact Diagnoses Severe episode of recurrent major depressive disorder, without psychotic features ([facility]) Cristin Elizabeth NP George, Louise ZIPPER JOINER [address] [facility] [address] [place] [address] [place] [address] Phone: Fax: Referral ID Status Reason Start Date Expiration Date Visits V isits Requested Authorized [id number] Closed Specialty 12/17/2017 1 1 Services Required Question Answer Reason for Request: depression Reason for Visit Reason Comments Depression Split with mother of childre n about two years ago. Unable to see them but on weekends. They live about 45 min to an hour away. 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 recurrent major [place] depressive disorder, [address] [facility] [place] [address] features ([facility]) [phone] ([facility]) (Prim basilio Dx) Social History Tobacco Use Types Packs/Day [...] Sign Reading Time Taken Comments Blood Pressure 132/80 12/17/2017 1603 EST Pulse 84 12/17/2017 1603 EST Temperature - - Respiratory Rate - - Oxygen Saturation - - Inhaled Oxygen Concentration - - Weight 104.3 kg (230 lb) 12/17/2017 1603 EST with shoes Height - - Body Mass Index 33.97 02/15/2017 1405 EDT documented in this encounter Functional Status Functional Status Response Date of Assessment Because of a physical, mental, or emotional condition, No 12/17/2017 does this person have difficulty doing errands alone such as visiting a doctor's office or shopping? Cognitive Status Response Date of Assessment Because of a physical, mental, or emotional condition, No 12/17/2017 does this person have serious difficulty concentrating, remembering, or making decisions? documented as of this encounter Patient Instructions Patient InstructionsCristin Elizabeth NP - 12/17/2017 16:00 EST Mental Health Crisis Services [facility]: [phone] documented in this encounter Ordered Prescriptions Prescription Sig Dispensed Refills Start Date End Date sertraline (ZOLOFT) 50 mg Take 1/2 tablet 30 Tab 0 12/1701/24/2018 tabletIndications: Severe daily for 1 week episode of recurrent major then 1 tablet daily depressive disorder, without psychotic features ([facility]) sertraline (ZOLOFT) 50 mg Take 1/2 tablet 30 Tab 0 12/1712/17/2017 tabletIndications: Severe daily for 1 week episode of recurrent major then 1 tablet daily depressive disorder, without psychotic features ([facility]CC) documented in this encounter Progress Notes Cristin Elizabeth NP - 12/17/2017 1600 EST Subjective: Patient ID: Zeeshan Gonzalez Jr. is an 27 y.o. male. Chief Complaint Patient presents with ??? Depression Split with mother of children about two years ago. Unable to see them but on weekends. They live about 45 min to an hour away. HPI Depression Zeeshan says that 2 years ago his kids mom left and his depression has gotten worse. He now works in [employer] and can only see his kids on weekends. He has been on depression medications in the past. He had taken xanax, wellbutrin, effexor, and lithium. He is not currently in therapy. He does smoke marijuana occasionally. He does have suicidal thoughts but does not act on them because of his kids. Hesold all of his guns after his ex left him. He is unsure which medications were beneficial for him. He currently lives with his girlfriend, who is a good support. He has insomnia. He works from [id number] M-F. He is unsure if he could find time for a therapist. His old therapist does not practice anymore. Patient Active Problem List Diagnosis ??? Other activity ??? Obesity ??? Acanthosis nigricans ??? Depression ??? Hypertensive disorder ??? Asthma ??? Metabolic syndrome X ??? Right low back pain ??? Acute bilateral low back pain with bilateral sciatica Past Medical History: Diagnosis Date ??? Asthma ??? Chicken pox As a child ??? Depression Current Outpatient Prescriptions on File Prior to Visit Medication Sig Dispense Refill ??? acetaminophen (TYLENOL) 325 mg tablet Take 650 mg by mouth every 4 hours as needed for Pain. ??? ibuprofen (MOTRIN) 200 mg tablet Take 600 mg by mouth every 6 hours as needed for Pain. No current facility-administered medications on file prior to visit. Allergies Allergen Reactions ??? Cats ??? Pollen Extracts Social Social History Substance Use Topics ??? Smoking status: Current Every Day Smoker Packs/day: 1.00 Years: 7.00 Types: Cigarettes ??? Smokeless tobacco: Never Used Comment: off and on for 7 years ??? Alcohol use No Comment: occasionally Review of Systems Constitutional: Negative for chills, fever and malaise/fatigue. HENT: Negative for congestion and sore throat. Respiratory: Negative for cough and shortness of breath. Cardiovascular: Negative for chest pain and palpitations. Gastrointestinal: Negative for abdominal pain, diarrhea, nausea and vomiting. Musculoskeletal: Negative for myalgias. Neurological: Negative for dizziness, loss of consciousness and headaches. Psychiatric/Behavioral: Positive for depression, substance abuse and suicidal ideas. Negative for hallucinations. The patient is nervous/anxious and has insomnia. - See HPI Objective: BP 132/80 (BP Cuff Location: Right arm, Patient Position: Sitting) Pulse 84 Wt (!) 104.3 kg (230lb) Comment: with shoes BMI 33.97 kg/m2 Physical Exam Constitutional: He is oriented to person, place, and time. He appears well- developed and well-nourished. No distress. HENT: Nose: Nose normal. No nasal discharge. Mouth/Throat: Mucous membranes are moist. Eyes: Pupils are equal, round, and reactive to light. Right eye exhibits no discharge. Left eye exhibits no discharge. Neck: Normal range of motion. Neck supple. Cardiovascular: Normal rate and intact distal pulses. Pulmonary/Chest: Effort normal. No respiratory distress. Abdominal: Soft. He exhibits no distension. There is no tenderness. Musculoskeletal: Normal range of motion. Neurological: He is alert and oriented to person, place, and time. Skin: Skin is warm and dry. No rash noted. He is not diaphoretic. Psychiatric: He has a normal mood and affect. His behavior is normal. Judgment normal. He expresses suicidal ideation. He expresses no suicidal plans. Assessment: 1. Depression Plan: Diagnoses and all orders for this visit: Severe episode of recurrent major depressive disorder, without psychotic features ([facility]) - sertraline (ZOLOFT) 50 mg tablet; Take 1/2 tablet daily for 1 week then 1 tablet daily - Amb Consult/Follow Up Psychology -will start zoloft at bedtime. Referred to counseling with Aissatou Aj. Given crisis hotline number for worsening suicidal ideation. Will follow-up in 4 weeks. documented in this encounter Plan of Treatment Scheduled Referrals Name Type Priority Associated Order Schedule Diagnoses AMB CONS/FOLLOW UP Outpatient Referral Routine Severe Episode Of Ordered: PSYCHOLOGY Recurrent Major 12/17/2017 Depressive Disorder, Without Psychotic Features ([facility]) documented as of this encounter Visit Diagnoses Diagnosis Severe episode of recurrent major depres sive disorder, without psychotic features (HCC) - Primary documented in this encounter Discontinued Medications Medication Sig Discontinue Reason Start Date End Date cyclobenzaprine (FLEXERIL) Take 1 Tab by 02/01/2017 12/17/2017 10 mg tablet mouth every 8 hours as needed for Muscle Spasms. sertraline (ZOLOFT) 50 mg Take 1/2 tablet Reorder 12/17/2017 12/17/2017 tabletIndications: Severe daily for 1 week episode of recurrent major then 1 tablet depressive disorder, daily without psychotic features (HCC) documented as of this encounter Care Teams Civil Engineering Specialist Relationship Specialty Start Date End Date Michael Sandoval MD PCP - General 05/17/17 01/13/18 documented as of this encounter
--- OUTSIDE RECORDS SUMMARY | 2022-06-05 06:50 | XMS_ITS | Encounter Summary ---
:1990 Author Organization [facility] Address [address] [place] [address] Care Team Providers Name Role Phone Michael Sandoval MD Primary Care Provider [phone] Reason for Visit Reason Comments Rash Rash since Saturday night Satu rday had abdominal pain and chest pain in mid epigastric area to sternal a edda. Namusea and vomiting this am. Encounter Details Date Type Department Care Team Description 07/27/2019 Hospital Encounter [facility] Joe Carpio, [employer] MANAGER [address] [place] [address] Rash (Primary Dx); Urgent Care - Ellen [facility], Provider, Bilious vomiting with nausea; [facility] Weakness [address], [place] [id number] Social History Tobacco Use Types Packs/Day Years [...] Sign Reading Time Taken Comments Blood Pressure 123/72 07/27/2019 1041 EDT Pulse 57 07/27/2019 1041 EDT Temperature 36.5 ??C (97.7 ??F) 07/27/2019 1041 EDT Respiratory Rate 16 07/27/2019 1041 EDT Oxygen Saturation - - Inhaled Oxygen [...] decisions? documented as of this encounter Discharge Diagnoses Diagnosis R21 Rash and other nonspecific skin erup tion-R21[ICD-10-CM] documented in this encounter Discharge Instructions AttachmentsThe following attachments cannot be sent through Care Everywhere.Rash (Azeri)Fatigue (Azeri)documented in this encounter Discharge Disposition Disposition Code Departure Means Destination Home or Self Care documented in this encounter ED Notes Sofiya Castro LPN - 07/27/2019 1323 EDT Blood drawn via butterly per protocol,sst,lav blue tube(s) sent to lab per order. oward Reginald Larsonya Buzz - 07/27/2019 1248 EDT Images from the original note were not included. DOS: 07/27/2019 Chief Complaint Patient presents with ??? Rash Rash since Saturday had abdominal pain and chest pain in mid epigastric area to sternal area. Namusea and vomiting this am. The patient is a 29 y.o. male who presents today with Rash (Rash since Saturday had abdominal pain and chest pain in mid epigastric area to sternal area. Namusea and vomiting this am.) Patient has had some scattered purplish lesions scattered over both of his arms and now has 2 on hisleft neck.. 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 Has not felt well since that time, fatigue, weakness, gastritis pain with some nausea and vomiting x 1 this morning. Has had some diarrhea as well. Denies sore throat, no bloating, no lower abdominal pain. Denies specific STD exposure, but thinks it may be a good idea to check. Denies fever or chills, no blood instools or emesis. Smokes marijuana daily, smokes 1 ppd, denies illicit drug use. History of ulcers on endoscopy--manages with avoidance of certain foods, does not take the meds--make him sick. Review of Systems Constitutional: Positive for appetite change and fatigue. Negative for activity change, chills, diaphoresis and fever. HENT: Negative for congestion and sore throat. Eyes: Negative. Respiratory: Negative for cough. Cardiovascular: Negative for chest pain and palpitations. Gastrointestinal: Positive for abdominal pain (epigastric), diarrhea, nausea and vomiting. Negative for abdominal distention, anal bleeding, blood in stool and constipation. Genitourinary: Negative. Musculoskeletal: Negative for arthralgias and myalgias. Skin: Negative. Neurological: Positive for weakness. Negative for headaches. Hematological: Negative for adenopathy. Psychiatric/Behavioral: Negative. All other systems reviewed and are negative. No current facility-administered medications for this encounter. No current outpatient medications on file. Allergies Allergen Reactions ??? Cats ??? Pollen Extracts Patient Active Problem List Diagnosis Date Noted ??? Acute bilateral low back pain with bilateral sciatica 02/04/2017 ??? Right low back pain 01/28/2017 ??? Asthma ??? Metabolic syndrome X ??? Acanthosis nigricans 12/21/2009 ??? Hypertensive disorder 08/18/2009 ??? Depression 06/06/2005 ??? Obesity 09/27/2004 Insulin resistance/metabolic syndrome ??? Other activity 06/18/2003 Case management. [facility] custody () Auto-update: regulatory requirement Past [...] Neg Hx ??? Hemochromatosis Neg Hx BP 123/72 Pulse 57 Temp 97.7 ??F (36.5 ??C) Resp 16 Physical Exam Constitutional: He is oriented to person, place, and time. He appears well- developed and well-nourished. No distress. HENT: Head: Normocephalic. Nose: Nose normal. Neck: Normal range of motion. Neck supple. Cardiovascular: Normal rate, regular rhythm and normal heart sounds. Pulmonary/Chest: Effort normal. Abdominal: Soft. He exhibits no distension and no mass. There is no tenderness. There is no rebound and no guarding. Musculoskeletal: Normal range of motion. Lymphadenopathy: He has no cervical adenopathy. Neurological: He is alert and oriented to person, place, and time. Skin: Skin is warm and dry. Patient with 5 or 6 flat, petechial lesions 1-2 mm in size on inner left forearm, 1 on each wrist, one longer one on left neck, one of nape of neck (see photos) Psychiatric: He has a normal mood and affect. Nursing note and vitals reviewed. Consult orders: None PCP: Michael Sandoval Results for orders placed or performed during the hospital encounter of 07/27/19 COMPLETE BLOOD COUNT AND DIFFERENTIAL Result Value Ref Range WBC 10.19 4.0 - 10.4 K/cmm RBC 4.85 4.36 - 5.78 M/cmm Hemoglobin 15.8 13.8 - 17.3 gm/dl HCT 45.6 39.5 - 50.2 % MCV 94 81 - 95 fl MCH 32.6 27.6 - 33.0 pg MCHC 34.6 32.8 - 36.4 gm/dl RDW-CV 13.2 <14.2 % RDW-SD 44.0 <46.0 fl PLT 177 141 - 377 K/cmm MPV 9.4 (L) 9.5 - 12.7 fl Neutrophils 70.3 % Lymphocytes 22.4 % Monocytes 5.8 % Eosinophils 1.3 % Basophils 0.2 % ABS Neutrophils 7.17 2.20 - 8.85 K/cmm ABS Lymphs 2.28 1.09 - 3.30 K/cmm ABS Monocytes 0.59 0.1 - 0.8 K/cmm ABS Eosinophils 0.13 0.03 - 0.61 K/cmm ABS Basophils 0.02 0.01 - 0.11 K/cmm Type of Diff: Automated PROTIME Result Value Ref Range Pro Time 12.2 10.3 - 13.4 secs I.N.R. 1.0 0.9 - 1.1 Ratio COMPREHENSIVE METABOLIC PANEL (CMP) Result Value Ref Range Potassium 4.3 3.5 - 5.0 mEq/L Sodium 140 136 - 145 mEq/L Chloride 105 96 - 110 mEq/L CO2 27 22 - 32 mEq/L Total Alkaline Phosphatase 67 38 - 126 U/L Bilirubin, Total 0.6 <1.4 mg/dl AST 32 15 - 46 U/L ALT 46 <50 U/L Albumin 4.7 3.4 - 4.9 g/dl Total Protein 7.6 6.3 - 8.2 g/dl Creatinine 0.90 0.66 - 1.25 mg/dl GFR, Calculated 117 >60 ml/min/1.73m2 BUN 11 10 - 26 mg/dl Calcium 9.8 8.5 - 10.5 mg/dl Calculated Calcium 9.2 8.5 - 10.5 mg/dl Glucose, Serum 86 70 - 100 mg/dl Fasting? Unknown URINALYSIS MICROSCOPIC ONLY Result Value Ref Range WBC, UA 0 to 3 0 to 3 /HPF RBC, UA 0 to 2 0 to 2 /HPF Squam Epithel, UA None seen None seen /HPF Hyaline Casts, UA < or = 10 < or = 10 /LPF Bacteria, UA None seen None seen /HPF UA Comment Sediment results POCT URINE DIPSTICK, CLINITEK Result Value Ref Range Color YELLOW Yellow Clarity, UA Clear Clear Glucose Neg Neg Bilirubin Neg Neg Ketones Neg Neg Specific Stella 1.015 1.001 - 1.035 Blood Trace (A) Neg pH 7.0 4.6 - 8.0 Protein Neg Neg Urobilinogen 0.2 0.2 - 1.0 mg/dL Nitrite Neg Neg Leuk Esterase Neg Neg Tech ID [id number] Radiology orders: None Imaging Results None No orders to display Procedures URGENT CARE COURSE A medical screening exam was performed. Patient with may be a viral illness with a petechial type rash with normal labs, including Pt/INR. STD screening pending. He will watch the symptoms and the reash over the next few days and if significant changes, will return here or to his PCP--he declined any medication for the nausea or the gastritis. He will rest and drink fluids today. ASSESSMENT AND PLAN Final diagnoses: Rash Bilious vomiting with nausea Weakness Dr. Gilberto Marion was available for consultation during my care of this patient. DISPOSITION: Discharged The patient's pain was managed to an adequate level weighing risk vs. benefit of further medications. Upon departure from [facility], the patient's pain was 0 on a zero to ten scale. Any further pain treatment will be at the discretion of the provider following up with the patient based on their clinical assessment . Condition at departure from the [facility] : Stable MDM 07/27/2019 14:23 . Baldev [facility], KEANU - 07/27/2019 1107 EDT See cc note. Pt has rash on arms and back of neck. Pt c/o nausea, weakness, and fatigue. Pt feels like chest is tight and is c/o intermittent SOB. Pt denies cough. Pt denies itching or pain with rash. documented in this encounter Plan of Treatment Not on filedocumented as of this encounter Goals Goal Patient Goal Associated Recent Patient-Stated? Author Type Problems Progress Blood Pressure Blood Pressure Hypertensive 145/96 No Vosb urg, < 130/80 disorder (06/04/2022 SHIRA Boyd 13:12 EDT) documented as of this encounter Procedures Procedure Name Priority Date/Time Associated Comments Diagnosis POCT URINE DIPSTICK, STAT 07/27/2019 13:40 Rash Res ults for this CLINITEK EDT procedure are i n the results section. URINE SEDIMENT (MICRO) STAT 07/27/2019 13:38 Rash R esults for this WITHOUT REFLEX TO EDT procedure are in CULTURE the results section. SYPHILIS SEROLOGY Routine 07/27/2019 13:11 Rash Result s for this EDT procedure are i n the results section. HEPATITIS C AB W STAT 07/27/2019 13:11 Rash Results for this REFLEX TO HCV RNA BY EDT procedu re are in PCR the results section. HEPATITIS B CORE STAT 07/27/2019 13:11 Rash Results for this ANTIBODY (TOTAL) EDT procedure a re in the results section. HEPATITIS B SURFACE STAT 07/27/2019 13:11 Rash Resu lts for this ANTIBODY EDT procedure are i n the results section. HEPATITIS B SURFACE STAT 07/27/2019 13:11 Rash Resu lts for this ANTIGEN EDT procedure are i n the results section. PROTIME STAT 07/27/2019 13:11 Rash Results for this EDT procedure are i n the results section. COMPLETE BLOOD COUNT STAT 07/27/2019 13:11 Rash Results for this AND DIFFERENTIAL EDT Bilious vomiting procedu re are in with nausea the results Weakness section. HIV 1/2 ANTIGEN AND STAT 07/27/2019 13:11 Rash Resu lts for this ANTIBODY, 4TH EDT procedure are in GENERATION the results section. COMPREHENSIVE STAT 07/27/2019 13:11 Rash Results fo r this METABOLIC PANEL (CMP) EDT proced ure are in the results section. CHLAMYDIA/N. Routine 07/27/2019 13:05 Rash Results for this GONORRHOEAE AMPLIFIED EDT proced ure are in RNA, URINE the results section. documented in this encounter Results (ABNORMAL) POCT URINE DIPSTICK, CLINITEK (07/27/2019 13:40 EDT) Color YELLOW Yellow [facility] Clarity, UA Clear Clear [facility] Glucose Neg Neg [facility] Bilirubin Neg Neg [facility] Ketones Neg Neg [facility] Specific Stella 1.015 1.001 - 1.035 [facility] Blood Trace (A) Neg [facility] pH 7.0 4.6 - 8.0 [facility] Protein Neg Neg [facility] Urobilinogen 0.2 0.2 - 1.0 [facility] mg/dL LABORATORY SERVICES Nitrite Neg Neg [facility] Leuk Esterase Neg Neg [facility] disk grinder ID [id number]: [facility] Test performed at LABORATORY Urgent Care SERVICES Specimen Urine (substance) - Urine Performing Organization Address [facility]/ZIP [facility] Phon e Number [facility] [address] [place] [address] SERVICES URINALYSIS MICROSCOPIC ONLY (07/27/2019 13:38 EDT) WBC, UA 0 to 3 0 to 3 /HPF [facility] RBC, UA 0 to 2 0 to 2 /HPF [facility] Squam Epithel, UA None seen None seen [facility] /[facility] SERVICES Hyaline Casts, UA < or = 10 < or = 10 [facility] /[facility] LABORATORY SERVICES Bacteria, UA None seen None seen [facility] /[facility] SERVICES UA Comment Sediment results [facility] Comment: LABORATORY are unreliable on SERVICES urines unrefrig >2hrs or refrig >8hrs. Performed at [facility], [place], [place] Specimen Urine (substance) - Urine Performing Organization Address [facility]/ZIP [facility] Phon e Number [facility] [address] [place] [address] SERVICES HEPATITIS B SURFACE ANTIGEN (07/27/2019 13:11 EDT) Pathologist Sig nature Hepatitis B Surface Negative Negative [facility] Antigen LABORATORY SERVICES Specimen Blood specimen (specimen) - Blood Performing Organization Address [facility]/ZIP [facility] Phon e Number [facility] [address] [place] [address] SERVICES HEPATITIS B SURFACE ANTIBODY (07/27/2019 13:11 EDT) Hepatitis B Surface Negative [facility] Antibody, Qualitative Comment: LABORATORY SERVICES Reference Range: Unvaccinated: ??Negative Vaccinated: ??Positive Patient is presumed to not be immune to infection with HBV. Hepatitis B Antibody, <3.1 mIU/mL [facility] Quantitative Comment: LABORATORY SERVICES Reference Range: Positive: ??>=10.0 mIU/mL Negative: ??<10.0 mIU/mL Patient is presumed to not be immune to infection with HBV. Specimen Blood specimen (specimen) - Blood Performing Organization Address [facility]/ZIP [facility] Phon e Number [facility] [address] [place] [address] SERVICES HEPATITIS B CORE ANTIBODY (TOTAL) (07/27/2019 13:11 EDT) Pathologist Sig nature Hepatitis B Core Negative Negative [facility] Antibody LABORATORY SERVICES Specimen Blood specimen (specimen) - Blood Performing Organization Address [facility] Phon e Number [facility] [address] [place] [address] SERVICES HEPATITIS C AB W REFLEX TO HCV RNA BY PCR (07/27/2019 13:11 EDT) Pathologist Sig nature Hep C Ab w Rfx PCR Negative Negative [facility] HCSCR2 LABORATORY SERVICES Specimen Blood specimen (specimen) - Blood Performing Organization Address [facility] Phon e Number [facility] [address] [place] [address] SERVICES HIV 1/2 ANTIGEN AND ANTIBODY, 4TH GENERATION (07/27/2019 13:11 EDT) HIV 1/2 Antibody Negative Negative [facility] Comment: LABORATORY SERVICES Fourth generation assay performed on the Siemens Centaur. If acute HIV-1 infection is suspected in a high risk patient, submit plasma specimen for HIV-1 RNA quantification test. Specimen Blood specimen (specimen) - Blood Performing Organization Address [facility]/ZIP [facility] Phon e Number [facility] [address] [place] [address] SERVICES SYPHILIS SEROLOGY (07/27/2019 13:11 EDT) Syphilis Serology NegativeComment: [facility] Reference Range: LABORATORY SERVICES Negative Specimen Blood specimen (specimen) - Blood Performing Organization Address [facility] Phon e Number [facility] [address] [place] [address] SERVICES COMPREHENSIVE METABOLIC PANEL (CMP) (07/27/2019 13:11 EDT) Potassium 4.3 3.5 - 5.0 [facility] mEq/L [facility] Sodium 140 136 - 145 [facility] mEq/L [facility] Chloride 105 96 - 110 [facility] mEq/L [facility] CO2 27 22 - 32 mEq/L [facility] Total Alkaline 67 38 - 126 U/L [facility] Phosphatase [facility] Bilirubin, Total 0.6 <1.4 mg/dl [facility] AST 32 15 - 46 U/L [facility] ALT 46 <50 U/L [facility] Albumin 4.7 3.4 - 4.9 [facility] g/dl [facility] Total Protein 7.6 6.3 - 8.2 [facility] g/dl [facility] Creatinine 0.90 0.66 - 1.25 [facility] mg/dl [facility] GFR, Calculated 117 >60 [facility] Comment: ml/min/1.73m2 CENTER LABORATORY eGFR calculated using CKD-EPI equation for SERVICES non Americans. Multiply eGFR by 1.16 for Americans. BUN 11 10 - 26 mg/dl [facility] Calcium 9.8 8.5 - 10.5 [facility] mg/dl [facility] Calculated Calcium 9.2 8.5 - 10.5 [facility] mg/dl [facility] Glucose, Serum 86 70 - 100 [facility] mg/dl [facility] Fasting? UnknownComment: [facility] MEDICAL Performed at [facility], SERVICES [place], [place] Specimen Blood specimen (specimen) - Blood Performing Organization Address City/[facility]/ZIP Code Phon e Number [facility] [address] [place] [address] SERVICES PROTIME (07/27/2019 13:11 EDT) Pro Time 12.2 10.3 - 13.4 [facility] secs LABORATORY SERVICES I.N.R. 1.0 0.9 - 1.1 [facility] Comment: Ratio LABORATORY SERVICES Moderate Intensity Coumadin INR = 2.0-3.0 Adjustments in anticoagulant therapy dose should be based upon the INR and NOT the Pro Time. Performed at [facility], [place], [place] Specimen Blood specimen (specimen) - Blood Performing Organization Address City/[facility]/ZIP [facility] Phon e Number [facility] [address] [place] [address] SERVICES (ABNORMAL) COMPLETE BLOOD COUNT AND DIFFERENTIAL (07/27/2019 13:11 EDT) WBC 10.19 4.0 - 10.4 [facility] LABORATORY SERVICES RBC 4.85 4.36 - 5.78 [facility] LABORATORY SERVICES Hemoglobin 15.8 13.8 - 17.3 [facility] gm/dl LABORATORY SERVICES HCT 45.6 39.5 - 50.2 % [facility] SERVICES MCV 94 81 - 95 fl [facility] SERVICES MCH 32.6 27.6 - 33.0 pg [facility] SERVICES MCHC 34.6 32.8 - 36.4 [facility] gm/dl LABORATORY SERVICES RDW-CV 13.2 <14.2 % [facility] SERVICES RDW-SD 44.0 <46.0 fl [facility] SERVICES PLT 177 141 - 377 [facility] LABORATORY SERVICES MPV 9.4 (L) 9.5 - 12.7 fl [facility] SERVICES Neutrophils 70.3 % [facility] SERVICES Lymphocytes 22.4 % [facility] Monocytes 5.8 % [facility] SERVICES Eosinophils 1.3 % [facility] SERVICES Basophils 0.2 % [facility] SERVICES ABS Neutrophils 7.17 2.20 - 8.85 [facility] LABORATORY SERVICES ABS Lymphs 2.28 1.09 - 3.30 [facility] LABORATORY SERVICES ABS Monocytes 0.59 0.1 - 0.8 [facility] LABORATORY SERVICES ABS Eosinophils 0.13 0.03 - 0.61 [facility] LABORATORY SERVICES ABS Basophils 0.02 0.01 - 0.11 [facility] LABORATORY SERVICES Type of Diff: AutomatedComment: [facility] Performed at [facility], SERVICES [place], [place] Specimen Blood specimen (specimen) - Blood Performing Organization Address City/State/ZIP Code Phon e Number [facility] [address] [place] [address] SERVICES CHLAMYDIA/N. GONORRHOEAE AMPLIFIED RNA, URINE (07/27/2019 13:05 EDT) Pathologist Sig nature Chlamydia Result Negative [facility] SERVICES GC Result Negative [facility] SERVICES Specimen Other (qualifier value) - Urine Performing Organization Address City/State/ZIP Code Phon e Number [facility] [address] [place] [address] SERVICES documented in this encounter Visit Diagnoses Diagnosis Rash - Primary Rash and other nonspecific skin eruption Bilious vomiting with nausea Weakness Other malaise and fatigue documented in this encounter Discontinued Medications Medication Sig Discontinue Reason Start Date End Date ARIPiprazole (ABILIFY) 10 Take 1 Tab by Therapy completed 8 07/27/2019 mg tabletIndications: mouth daily. Severe episode of recurrent major depressive disorder, without psychotic features (HCC) HYDROcodone-acetaminophen Take 1-2 Tabs by Therapy completed 201707/27/2019 (NORCO) 5-325 mg mouth every 6 tabletIndications: hours as needed Vasectomy evaluation for Pain. Daily Max: 8 Tabs ibuprofen (MOTRIN) 800 mg Take 1 Tab by Therapy completed 8 07/27/2019 tablet mouth 3 times daily. LORazepam (ATIVAN) 1 mg Take 1 Tab by Therapy completed 03/13/2018 07/27/2019 tabletIndications: Anxiety mouth once for 1 dose. 30 minutes before appointment. Daily Max: 1 Tab metoclopramide HCl Take 1 Tab by Therapy completed 07/16/201807/2019 (REGLAN) 10 mg tablet mouth 4 times daily. sertraline (ZOLOFT) 100 mg Take 2 Tabs by Therapy completed 018 07/27/2019 tabletIndications: Severe mouth daily. episode of recurrent major depressive disorder, without psychotic features (HCC) documented as of this encounter Care Teams [employer] Director Relationship Specialty Start Date End Date Michael Sandoval MD PCP - General 06/06/18 09/28/19 documented as of this encounter
--- OUTSIDE RECORDS SUMMARY | 2022-06-05 06:50 | XMS_ITS | Encounter Summary ---
:1990 Author Organization [facility] Address [address] [place] [address] Care Team Providers Name Role Phone Cristin Elizabeth AGRICULTURAL REAL ESTATE AGENT Primary Care Provider Unavailable Reason for Visit Reason Comments Depression Encounter Details Date Type Department Care Team Description 03/14/2018 Office Visit [facility] Cristin Elizabeth, Sev ere episode of Family Medicine - AGRICULTURAL REAL ESTATE AGENT recurrent major [place] depressive disorder, [address] [place] [address] features ([facility]) [phone] (Primary Dx) Social History Tobacco Use Types [...] Sign Reading Time Taken Comments Blood Pressure 124/82 03/14/2018 0857 EDT Pulse 66 03/14/2018 0857 EDT Temperature 37 ??C (98.6 ??F) 03/14/2018 0857 EDT Respiratory Rate 16 03/14/2018 0857 EDT Oxygen Saturation - - Inhaled Oxygen Concentration - - Weight 105.7 kg (233 lb) 03/14/2018 0857 EDT Height - - Body Mass Index 34.91 03/13/2018 0945 EDT documented in this encounter Functional Status Functional Status Response Date of Assessment Because of a physical, mental, or emotional condition, No 03/14/2018 does this person have difficulty doing errands alone such as visiting a doctor's office or shopping? Cognitive Status Response Date of Assessment Because of a physical, mental, or emotional condition, No 03/14/2018 does this person have serious difficulty concentrating, remembering, or making decisions? documented as of this encounter Ordered Prescriptions Prescription Sig Dispensed Refills Start Date End Date ARIPiprazole (ABILIFY) 5 Take 1 Tab by mouth 30 Tab 0 04/04/2018 mg tabletIndications: daily. Severe episode of recurrent major depressive disorder, without psychotic features (HCC) sertraline (ZOLOFT) 100 mg Take 2 Tabs by 60 Tab 0 03/1407/27/2019 tabletIndications: Severe mouth daily. episode of recurrent major depressive disorder, without psychotic features (HCC) documented in this encounter Progress Notes Cristin Elizabeth NP - 03/14/2018 0900 EDT Subjective: Patient ID: Zeeshan Gonzalez Jr. is an 27 y.o. male. Chief Complaint Patient presents with ??? Depression HPI Depression He took lorazepam, which helped. He has not been drinking alcohol. He continues to have suicidal thoughts. He sees Aissatou next week. He is scheduled for a vasectomy in April. He says the baby is doing well. He is very busy at work. He did get to see his children. Patient Active Problem List Diagnosis ??? Other [...] to Visit Medication Sig Dispense Refill ??? HYDROcodone-acetaminophen (NORCO) 5-325 mg tablet Take 1-2 Tabs by mouth every 6 hours as neededfor Pain. Daily Max: 8 Tabs 6 Tab 0 ??? LORazepam (ATIVAN) 1 mg tablet Take 1 Tab by mouth once for 1 dose. 30 minutes before appointment. Daily Max: 1 Tab 1 Tab 0 No current facility-administered medications on file [...] for abdominal pain, diarrhea, nausea and vomiting. Neurological: Negative for dizziness, loss of consciousness and headaches. Psychiatric/Behavioral: Positive for depression and suicidal ideas. - See HPI Objective: BP 124/82 (BP Cuff Location: Right arm, Patient Position: Sitting, BP Cuff Sizes: Adult, large) Pulse 66 Temp 37 ??C (98.6 ??F) (Tympanic) Resp 16 Wt (!) 105.7 kg (233 lb) BMI 34.91 kg/m2 Physical Exam Constitutional: He is oriented [...] and affect. His behavior is normal. Judgment and thought content normal. Assessment: 1. Depression Plan: Diagnoses and all orders for this visit: Severe episode of recurrent major depressive disorder, without psychotic features ([facility]) - sertraline (ZOLOFT) 100 mg tablet; Take 2 Tabs by mouth daily. - ARIPiprazole (ABILIFY) 5 mg tablet; Take 1 Tab by mouth daily. -increase zoloft to 200mg/day and add abilify to regimen. Will follow-up in 2 weeks. Patient to follow up sooner if unable to tolerate medications documented in this encounter Plan of Treatment Not on filedocumented as of this encounter Visit Diagnoses Diagnosis Severe episode of recurrent major depres sive disorder, without psychotic features (HCC) - Primary documented in this encounter Discontinued Medications Medication Sig Discontinue Reason Start Date End Date sertraline (ZOLOFT) 100 Take 1.5 Tabs by Reorder 02/14/2018 03/14/2018 mg tabletIndications: mouth daily. Severe episode of recurrent major depressive disorder, without psychotic features (HCC) documented as of this encounter Care Teams Program Production Specialist Relationship Specialty Start Date End Date Cristin Elizabeth NP PCP - General 01/14/18 documented as of this encounter
--- OUTSIDE RECORDS SUMMARY | 2022-06-05 06:50 | XMS_ITS | Encounter Summary ---
:[address] [facility] Address [address] [place] [address] Care Team Providers Name Role Phone Cristin Elizabeth APPLICATION SECURITY ARCHITECT Primary Care Provider Unavailable Reason for Referral Consult (Routine) - Closed Specialty Diagnoses / Procedures Referred By Contact Refer red To Contact Diagnoses Financial difficulty Cristin Elizabeth NP [address] [place] [address] Referral ID Status Reason Start Date Expiration Date Visits V isits Requested Authorized [id number] Closed Specialty 01/24/2018 1 1 Services Required Question Answer What areas would you like the [facility] to focus on? Disability Representative If Yes to Disability Representative, Please Select from the Fol lowing: Financial Issues Patient's Weight (kg) (1 lb = 0.4536 kg): 105.2 - with shoes Patient's Height (cm) (1 in = 2.54 cm): 175.3 Comments As we discussed in your visit today, jerardo eone will be contacting you from the [facility] Team to schedule an yashira ointment with you. If you do not hear from the [facility] within a week please call the [facility] Health Team at [phone]. Reason for Visit Reason Comments Depression Does not feel medication is working. Encounter Details Date Type Department Care Team Description 01/24/2018 Office Visit [facility] Cristin Elizabeth, Flaca ere episode of recurrent major depressive disorder, without psychotic features (CMS-HCC) (HCC- CMS) (Primary Dx); Family Medicine - APPLICATION SECURITY ARCHITECT Elevated b lood pressure reading; Jorge Financial difficulty [address] [place] [address] Social History Tobacco Use Types [...] Sign Reading Time Taken Comments Blood Pressure 154/82 01/24/2018817 EST Pulse 80 01/24/2018817 EST Temperature - - Respiratory Rate - - Oxygen Saturation - - Inhaled Oxygen Concentration - - Weight 105.2 kg (232 lb) 01/24/2018 08 EST with shoes Height 175.3 cm (5' 9) 01/24/2018817 EST Body Mass Index 34.26 01/24/2018 0818 EST documented in this encounter Functional Status Functional [...] Patient Instructions Patient InstructionsCristin Elizabeth NP - 01/24/2018 8:15 EST Take melatonin 10mg at bedtime Mental Health Crisis Services [facility] Human Services: [phone] documented in this encounter Ordered Prescriptions Prescription Sig Dispensed Refills Start Date End Date sertraline (ZOLOFT) 100 mg Take 1 Tab by mouth 30 Tab 0 01/24/2018 02/14/2018 tabletIndications: Severe daily. episode of recurrent major depressive disorder, without psychotic features (HCC) documented in this encounter Progress Notes Cristin Elizabeth NP - 01/24/2018 0815 EST Subjective: Patient ID: Zeeshan Gonzalez Jr. is an 27 y.o. male. Chief Complaint Patient presents with ??? Depression Does not feel medication is working. HPI Depression Zeeshan says his depression is not improved. He is not sleeping well. He does have suicidal ideation, but he is not acting on it. He sees Aissatou Aj for therapy. He says he feels anxious. He says lastFriday he was supposed to see his kids and their mother would not let him. He drank a 6 pack of beerto cope. He says work is going okay. He has been couging every morning almost to the point of vomiting. He has attempted overdose with ambien before. Patient Active Problem List Diagnosis ??? Other [...] Psychiatric/Behavioral: Positive for depression and suicidal ideas. The patient is nervous/anxious and has insomnia. - See HPI Objective: BP (!) 154/82 (BP Cuff Location: Right arm, Patient Position: Sitting) Pulse 80 Ht 175.3 cm (69) Wt (!) 105.2 kg (232 lb) Comment: with shoes BMI 34.26 kg/m2 Physical Exam Constitutional: He [...] has a normal mood and affect. His speech is normal and behavior is normal. He expresses suicidal ideation. He expresses no homicidal ideation. He expresses no suicidal plans and no homicidal plans. Assessment: 1. Depression 2. Elevated blood pressure 3. Financial difficulty Plan: Diagnoses and all orders for this visit: Severe episode of recurrent major depressive disorder, without psychotic features ([facility]) - sertraline (ZOLOFT) 100 mg tablet; Take 1 Tab by mouth daily. -will increase zoloft dose. Patient to return in 2-3 weeks. Will continue therapy and find coping mechanisms other than drinking. Given crisis hotline number for worsening suicidal ideation. Elevated blood pressure reading -will continue to monitor-may need treatment Financial difficulty - AMB CONS/FOLLOW UP [facility] TEAM documented in this encounter Plan of Treatment Scheduled Referrals Name Type Priority Associated Diagnoses Order S deedeedule AMB CONS/FOLLOW UP Outpatient Referral Routine Financial diffi culty Ordered: [facility] 01/24/2018 TEAM documented as of this encounter Visit Diagnoses Diagnosis Severe episode of recurrent major depres sive disorder, without psychotic features (HCC) - Primary Elevated blood pressure reading Elevated blood pressure reading without diagnosis of hypertension Financial difficulty Inadequate material resources documented in this encounter Discontinued Medications Medication Sig Discontinue Reason Start Date End Date sertraline (ZOLOFT) 50 Take 1/2 tablet Reorder 12/17/2017 mg tabletIndications: daily for 1 week Severe episode of then 1 tablet daily recurrent major depressive disorder, without psychotic features (HCC) documented as of this encounter Care Teams Social Professionals Relationship Specialty Start Date End Date Cristin Elizabeth NP PCP - General 01/14/18 documented as of this encounter
--- OUTSIDE RECORDS SUMMARY | 2022-06-05 06:50 | XMS_ITS | Encounter Summary ---
:1990 Author Organization [facility] Address [address] [place] [address] Care Team Providers Name Role Phone Michael Sandoval MD Primary Care Provider [phone] Reason for Visit Reason Comments Chest Pain Chest pain x 2 days, darriusts m guera upon insipration Encounter Details Date Type Department Care Team Description 10/28/2018 Emergency [facility] Rajni Hudson MD [address] [place] [address], [address] [place] [address] Chest wall pain (Primary Dx); Emergency Department Emergency, MD Pedro Pablo Chest pain due to GERD - [address] [address] Social History Tobacco Use Types Packs/Day Years [...] Sign Reading Time Taken Comments Blood Pressure 147/84 10/28/2018 1027 EST Pulse 64 10/28/2018 1027 EST Temperature 36.1 ??C (97 ??F) 10/28/2018 1027 EST Respiratory Rate 18 10/28/2018 1027 EST Oxygen Saturation 100% 10/28/2018 1027 EST Inhaled Oxygen Concentration - - Weight 104.3 kg (230 lb) 10/28/2018 1027 EST Height 172.7 cm (5' 8) 10/28/2018 1027 EST Body Mass Index 34.97 10/28/2018 1027 EST documented in this encounter Functional Status [...] as of this encounter Discharge Diagnoses Diagnosis R07.89 Other chest pain-R07.89[ICD-10-CM ] K21.9 Gastro-esophageal reflux disease w ithout esophagitis-K21.9[ICD-10-CM] R10.11 Right upper quadrant pain-R10.11[ ICD-10-CM] R42 Dizziness and giddiness-R42[ICD-10-C M] J45.909 Unspecified asthma, uncomplicate d-J45.909[ICD-10-CM] F17.210 Nicotine dependence, cigarettes, uncomplicated-F17.210[ICD-10-CM] E88.81 Metabolic syndrome-E88.81[ICD-10- CM] I20.9 Angina pectoris, unspecified-I20.9 [ICD-10-CM] documented in this encounter Discharge Instructions Rajni Coppola MD - 10/28/2018 Please restart your omeprazole or you could take [id number] Prilosec 20 mg twice a day for 2 weeks and then decrease it down to 20 mg once daily Need to try to avoid dairy as dairy causes an increase in acid after you eat it and then irritates the stomach lining. Spicy foods actually are not too concerning for stomach discomfort. I would suggest avoiding alcohol and try to quit smoking AttachmentsThe following attachments cannot be sent through Care Everywhere. CHEST PAIN: MUSCULOSKELETAL ([place])GERD ([place])documented in this encounter Medications at Time of Discharge Medication Sig Dispensed Refills Start Date End Date ARIPiprazole (ABILIFY) 10 Take 1 Tab by mouth 30 Tab 0 0 04/04/2018 07/27/2019 mg tabletIndications: daily. Severe episode of recurrent major depressive disorder, without psychotic features (HCC) HYDROcodone-acetaminophen Take 1-2 Tabs by 8 Tab 0 06/2 07/201807/27/2019 (NORCO) 5-325 mg mouth every 6 hours tabletIndications: as needed for Pain. Vasectomy evaluation Daily Max: 8 Tabs ibuprofen (MOTRIN) 800 mg Take 1 Tab by mouth 30 Tab 0 0 05/16/2018 07/27/2019 tablet 3 times daily. LORazepam (ATIVAN) 1 mg Take 1 Tab by mouth 1 Tab 0 07/27/2019 tabletIndications: Anxiety once for 1 dose. 30 minutes before appointment. Daily Max: 1 Tab metoclopramide HCl Take 1 Tab by mouth 25 Tab 0 07/16/20 18 07/27/2019 (REGLAN) 10 mg tablet 4 times daily. omeprazole (PRILOSEC) 20 Take 1 Cap by mouth 118 Cap 0 02/09/2019 mg capsule 2 times daily for 14 days, THEN 1 Cap every morning for 90 days. sertraline (ZOLOFT) 100 mg Take 2 Tabs by 60 Tab 0 03/1407/27/2019 tabletIndications: Severe mouth daily. episode of recurrent major depressive disorder, without psychotic features (HCC) documented as of this encounter Ordered Prescriptions Prescription Sig Dispensed Refills Start Date End Date omeprazole (PRILOSEC) 20 Take 1 Cap by mouth 118 Cap 0 02/09/2019 mg capsule 2 times daily for 14 days, THEN 1 Cap every morning for 90 days. documented in this encounter Discharge Disposition Disposition Code Departure Means Destination Home or Self Care Car Home documented in this encounter ED Notes Lynette Chinchilla RN - 10/28/2018 1345 EST Good pain relief with GI coctail. Rajni Martin MD - 10/28/2018 1116 EST DOS: 10/28/2018 Chief Complaint Patient presents with ??? Chest Pain Chest pain x 2 days, hurts more upon insipration HPI I, Nina Mandi, am scribing for Rajni Hudson MD while he/she is personally performing the service. Nina Raymond 10/28/2018 11:17 Kasie Gonzalez Jr. is a 28 y.o. male with a history of HTN, asthma, metabolic syndrome X, and depression who presents to the ED with two days of acute on chronic chest pain, worst in the center and on the left. He states he has had this pain for several years. He describes it as a dull and sharp pain with associated lightheadedness and dizziness. He adds it sometimes radiates into his L shoulder. He notes he has had chronic chest and abdominal pain and had a period of time where he vomited daily. He denies vomiting today. He also notes when he was vomiting frequently he sometimes had blood streakingand was placed on omeprazole which he is no longer taking. The patient endorses chronic, intermittent chills unchanged recently. He endorses feeling depressed and hopeless and endorses daily marijuana and tobacco use. He states he used to drink daily but has been only drinking occasionally. He notes he has pain when swallowing liquor. He denies SI. The patient's past medical, family, and social history was reviewed and updated as needed. The history is provided by the patient and medical records. Review of Systems Review of Systems Constitutional: Positive for chills. Negative for fever. Respiratory: Negative for shortness of breath. Cardiovascular: Positive for chest pain. Gastrointestinal: Positive for abdominal pain. Negative for diarrhea, nausea and vomiting. Neurological: Positive for dizziness and light-headedness. Psychiatric/Behavioral: The patient is nervous/anxious. All other systems reviewed and are negative. Allergies Allergen Reactions ??? Cats ??? Pollen Extracts Vital Signs Temp: 36.1 ??C (97 ??F) Temp src: Temporal Pulse: 64 Resp: 18 SpO2: 100 % BP: (!) 147/84 BP MAP: 98 mm Hg BP Device: BP Machine Patient Position: Sitting BP Cuff Location: Right arm O2 Device: None (Room air) Physical Exam Constitutional: He is oriented to person, place, and time. He appears well- developed and well-nourished. No distress. HENT: Head: Normocephalic and atraumatic. Eyes: EOM are normal. Pupils are equal, round, and reactive to light. Neck: Normal range of motion. Neck supple. Cardiovascular: Normal rate, regular rhythm, normal heart sounds and intact distal pulses. Pulmonary/Chest: Effort normal and breath sounds normal. No respiratory distress. He has no wheezes.He exhibits tenderness (Some referred pain into shoulder with palpation of L pectoralis.). Abdominal: Soft. There is tenderness (RUQ). There is guarding (voluntary). Musculoskeletal: Normal range of motion. He exhibits no edema. Neurological: He is alert and oriented to person, place, and time. Skin: Skin is warm and dry. Capillary refill takes less than 2 seconds. Psychiatric: His behavior is normal. Anxious. Endorses depression, denies SI. Nursing note and vitals reviewed. RESULTS EKG orders: EKG 12-LEAD Radiology orders: None Labs Reviewed BASIC METABOLIC PANEL (BMP) - Abnormal Result Value Status Sodium 140 Final Potassium 4.2 Final Chloride 109 Final CO2 23 Final BUN 10 Final Creatinine 0.87 Final GFR, Calculated 119 Final Calcium 9.7 Final Calculated Calcium 9.1 Final Glucose, Serum 102 (*) Final Fasting? Unknown Final COMPLETE BLOOD COUNT AND DIFFERENTIAL - Abnormal WBC 6.27 Final RBC 5.34 Final Hemoglobin 16.9 Final HCT 48.1 Final MCV 90 Final MCH 31.6 Final MCHC 35.1 Final RDW-CV 13.1 Final RDW-SD 43.0 Final PLT 188 Final MPV 9.4 (*) Final Neutrophils 66.7 Final Lymphocytes 25.2 Final Monocytes 6.9 Final Eosinophils 0.6 Final Basophils 0.3 Final Immature Grans 0.3 Final ABS Neutrophils 4.18 Final ABS Lymphs 1.58 Final ABS Monocytes 0.43 Final ABS Eosinophils 0.04 Final ABS Basophils 0.02 Final ABS Immature Grans 0.02 Final Type of Diff: Automated Final LIPASE Lipase 70 Final HEPATIC FUNCTION PANEL (ALB,ALK PHOS,ALT,AST,DBIL,TOT JULIOCESAR,TOT PROT) Albumin 4.8 Final Total Protein 7.4 Final Total Alkaline Phosphatase 76 Final ALT 36 Final AST 24 Final Unconjugated Bilirubin 0.2 Final Conjugated Bilirubin 0.0 Final Bilirubin, Total 0.5 Final Procedures ED COURSE A medical screening exam was performed. The patient is a 28 y.o. male with a history of HTN, asthma, metabolic syndrome X, and depression who presents to the ED with two days of acute on chronic chest and abdominal pain. On exam, he had someRUQ tenderness. The patient had an EKG which was independently reviewed and interpreted by me. (NSR, no signs of acute ischemia, no changes from prior in 2017). Patient had labs that were reviewed independently by myself, significant for normal LFTs and lipase,normal CBC and BMP. On reevaluation, the patient was feeling improved after a GI cocktail. The patient was discharged to home with instructions to take his omeprazole and follow up with his PCP. Prior to discharge usual and customary precautions were reviewed with the patient and/or family including follow-up instructions and reasons to return to the Emergency Department if condition worsens, does not improve as expected, or other new concerns arise. Final diagnoses: Chest wall pain DISPOSITION: Discharged The patient's pain was managed to an adequate level weighing risk vs. benefit of further medications. Upon departure from the Emergency Department, the patient's pain was 2 on a zero to ten scale. Any further pain treatment will be at the discretion of the provider following up with the patient based on their clinical assessment. Condition at departure from the Emergency Department: Improved PCP: Michael Sandoval [facility] This documentation is recorded by Nina Raymond acting as Scribe under the direction and presence of Rajni Hudson MD. Rajni Hudson MD: I personally performed the services recorded by the scribe in my presence. I confirm the scribe's documentation has been reviewed by me to accurately and completely record my work, treatment, procedures, and medical decision making. 10/28/2018 12:53 No flowsheet data found. Sabi Healy RN - 10/28/2018 1037 EST 12 Lead EKG Performed by SABI SWANN RN and shown to MD Hudson. Sabi Healy RN - 10/28/2018 1032 EST 1030- Pt presents with 5/10 CP. Reports he has had this in the past. Reports he is currently not taking his medications for GERD. Reports dizziness as well. Pain worse upon inspiration. VSS (see flowsheet) EKG performed, S/O at bedside. documented in this encounter Plan of Treatment Not on filedocumented as of this encounter Goals Goal Patient Goal Associated Recent Patient-Stated? Author Type Problems Progress Blood Pressure Blood Pressure Hypertensive 145/96 No Vosb urg, < 130/80 disorder (06/04/2022 SHIRA Boyd 13:12 EDT) documented as of this encounter Procedures Procedure Name Priority Date/Time Associated Comments Diagnosis ECG REPORT - SCANNED 11/03/2018 8:59 EST COMPLETE BLOOD COUNT STAT 10/28/2018 11:46 Res ults for this AND DIFFERENTIAL EST procedure a re in the results section. LIPASE STAT 10/28/2018 11:46 Results for this EST procedure are i n the results section. HEPATIC FUNCTION STAT 10/28/2018 11:46 Results for this PANEL (ALB,ALK EST procedure are in PHOS,ALT,AST,DBIL,TOT the re sults JULIOCESAR,TOT PROT) section. BASIC METABOLIC PANEL STAT 10/28/2018 11:46 Re sults for this (BMP) EST procedure are i n the results section. EKG 12-LEAD STAT 10/28/2018 10:33 Results for this EST procedure are i n the results section. documented in this encounter Results (ABNORMAL) COMPLETE BLOOD COUNT AND DIFFERENTIAL (10/28/2018 11:46 EST) Pathologist Sig nature WBC 6.27 4.0 - 10.4 [facility] LABORATORY SERVICES RBC 5.34 4.36 - 5.78 [facility] LABORATORY SERVICES Hemoglobin 16.9 13.8 - 17.3 [facility] gm/dl LABORATORY SERVICES HCT 48.1 39.5 - 50.2 % [facility] LABORATORY SERVICES MCV 90 81 - 95 fl [facility] LABORATORY SERVICES MCH 31.6 27.6 - 33.0 pg [facility] LABORATORY SERVICES MCHC 35.1 32.8 - 36.4 [facility] gm/dl LABORATORY SERVICES RDW-CV 13.1 <14.2 % [facility] LABORATORY SERVICES RDW-SD 43.0 <46.0 fl [facility] LABORATORY SERVICES PLT 188 141 - 377 [facility] MPV 9.4 (L) 9.5 - 12.7 fl [facility] LABORATORY SERVICES Neutrophils 66.7 % [facility] LABORATORY SERVICES Lymphocytes 25.2 % [facility] LABORATORY SERVICES Monocytes 6.9 % [facility]OR[facility]ORY SERVICES Eosinophils 0.6 % [facility] LABORATORY SERVICES Basophils 0.3 % [facility] LABORATORY SERVICES Immature Grans 0.3 % [facility] LABORATORY SERVICES ABS Neutrophils 4.18 2.20 - 8.85 [facility] LABORATORY SERVICES ABS Lymphs 1.58 1.09 - 3.30 [facility] LABORATORY SERVICES ABS Monocytes 0.43 0.1 - 0.8 K/[facility] LABORATORY SERVICES ABS Eosinophils 0.04 0.03 - 0.61 [facility] LABORATORY SERVICES ABS Basophils 0.02 0.01 - 0.11 [facility] LABORATORY SERVICES ABS Immature Grans 0.02 0 - 0.06 /[facility] LABORATORY SERVICES Type of Diff: Automated [facility] LABORATORY SERVICES Specimen Blood specimen (specimen) - Blood Performing Organization Address City/[facility] Code Phon e Number [facility] LABORATORY [address] [place] [address] SERVICES HEPATIC FUNCTION PANEL (ALB,ALK PHOS,ALT,AST,DBIL,TOT JULIOCESAR,TOT PROT) (10/28/2018 11:46 EST) Pathologist Sig nature Albumin 4.8 3.4 - 4.9 g/dl [facility] LABORATORY SERVICES Total Protein 7.4 6.3 - 8.2 g/dl [facility] LABORATORY SERVICES Total Alkaline 76 38 - 126 U/L [facility] Phosphatase LABORATORY SERVICES ALT 36 21 - 72 U/L [facility] LABORATORY SERVICES AST 24 15 - 46 U/L [facility] LABORATORY SERVICES Unconjugated Bilirubin 0.2 0.0 - 1.1 mg/dl [facility] LABORATORY SERVICES Conjugated Bilirubin 0.0 0.0 - 0.3 mg/dl [facility] LABORATORY SERVICES Bilirubin, Total 0.5 <1.4 mg/dl [facility] LABORATORY SERVICES Specimen Blood specimen (specimen) - Blood Performing Organization Address City/[facility]/ZIP [facility] Phon e Number [facility] LABOR[facility] [address] [place] [address] SERVICES LIPASE (10/28/2018 11:46 EST) Pathologist Sig nature Lipase 70 <251 U/L [facility] LABORATOR Y SERVICES Specimen Blood specimen (specimen) - Blood Performing Organization Address [facility] Phon e Number [facility]OR[facility] [address] [place] [address] SERVICES (ABNORMAL) BASIC METABOLIC PANEL (BMP) (10/28/2018 11:46 EST) Sodium 140 136 - 145 [facility] mEq/L LABORATORY SERVICES Potassium 4.2 3.5 - 5.0 [facility] mEq/L LABORATORY SERVICES Chloride 109 96 - 110 [facility] mEq/L LABORATORY SERVICES CO2 23 22 - 32 mEq/L [facility] LABORATORY SERVICES BUN 10 10 - 26 mg/dl [facility] LABORATORY SERVICES Creatinine 0.87 0.66 - 1.25 [facility] mg/dl LABORATORY SERVICES GFR, Calculated 119 >60 [facility] Comment: ml/min/1.73m2 LABORATORY eGFR calculated using CKD-EPI equation for SERVICES non Americans. Multiply eGFR by 1.16 for Americans. Calcium 9.7 8.5 - 10.5 [facility] mg/dl LABORATORY SERVICES Calculated Calcium 9.1 8.5 - 10.5 [facility] mg/dl LABORATORY SERVICES Glucose, Serum 102 (H) 70 - 100 [facility] mg/dl LABORATORY SERVICES Fasting? Unknown [facility] LABORATORY SERVICES Specimen Blood specimen (specimen) - Blood Performing Organization Address [facility]/ZIP Code Phon e Number [facility] LABORATORY [address] [place] [address] SERVICES EKG 12-LEAD (10/28/2018 10:33 EST) Specimen Narrative [facility] EKG - 11/03/2018 8:56 EST ?[facility] Emergency ? Test Date: ?2018-10-28 Pat Name: ? KASIE GONZALEZ ?Department: ?? ED ? Room: ? Gender: ? Male ? Sales And Marketing Administrator: ?? [id number] : ?1990 ? Requested By: ENIO Luis Order Number: [id number] ? Reading MD: ?? ARRON CHILEL MD ? Measurements Intervals ?[place] ? Rate: ? 64 ? P: ?65 NM: ? 186 ?QRS: ?78 QRSD: ? 101 ?T: ?14 QT: ? 368 ? QTc: ?381 ? Interpretive Statements SINUS RHYTHM Automated Interpretation. ??Provider Int erpretation to follow. No previous ECG available for comparison I reviewed the tracing and have either a greed or edited the findings in this report. Electronically Signed On 8:56:07 EST by ARRON CHILEL MD. Procedure Note Arron Chilel MD - 11/03/2018 [facility] Test Date: 2018-10-28 Pat Name: KASIE GONZALEZ Department: ED Room: Gender: Male Sales And Marketing Administrator: [id number] : 1990 Requested By: ENIO Luis Order Number: [id number] Reading MD: Beau CHILEL MD Measurements Intervals [place] Rate: 64 P: 65 NM: 186 QRS: 78 QRSD: 101 T: 14 QT: 368 QTc: 381 Interpretive Statements SINUS RHYTHM Automated Interpretation. Provider Inter pretation to follow. No previous ECG available for comparison I reviewed the tracing and have either a greed or edited the findings in this report. Electronically Signed On 8:56:07 EST by ARRON CHILEL MD. Performing Organization Address City/State/ZIP Code Phon e Number [facility] EKG documented in this encounter Visit Diagnoses Diagnosis Chest wall pain - Primary Painful respiration Chest pain due to GERD documented in this encounter Administered Medications Inactive Administered Medications - up to 3 most recent administrations Medication Order MAR Action Action Date Dose Rate Site aluminum & magnesium Given 10/28/2018 12:30 EST 15 mL hydroxide-simethicone (MYLANTA-DS) 400-400-40 mg/5 mL suspension 15 mL 15 mL, oral, NOW X1, 1 dose, On Sat10/28/18 at 1145, STAT lidocaine (XYLOCAINE) 2 % viscous soluti on 15 mL Given 10/28/2018 12:30 EST 15 mL 15 mL, oral, NOW X1, 1 dose, On Sat10/28/18 at 1145, STAT documented in this encounter Discontinued Medications Medication Sig Discontinue Reason Start Date End Date omeprazole (PRILOSEC) 20 Take 1 Cap by mouth 8 10/28/2018 mg capsule every morning. documented as of this encounter Active and Recently Administered Medications Times are shown in EST. Scheduled Medication Order 10/26/2018 10/27/2018 10/28/2018 aluminum & magnesium hydroxide-simethico ne (MYLANTA-DS) 400-400-40 mg/5 mL suspension 15 mL (COMPLETED) 1230 (Given - Provider: Lynette Chinchilla, KEANU) 15 mL, oral, NOW X1, 1 dose, 10/28/18 at 1145, STAT lidocaine (XYLOCAINE) 2 % viscous solution 15 mL (COMPLETED) 1230 (Given - Provider: Lynette Chinchilla, KEANU) 15 mL, oral, NOW X1, 1 dose, 10/28/18 at 1145, STAT documented in this encounter Orders Procedures Count Last Ordered Date First Ordered Date ECG REPORT - SCANNED 1 11/03/2018 Nursing Count Last Ordered Date First Ordered Date INSERT PERIPHERAL IV 1 10/28/2018 documented in this encounter Care Teams Extractor Operator Relationship Specialty Start Date End Date Michael Sandoval MD PCP - General 06/06/18 09/28/19 documented as of this encounter
--- OUTSIDE RECORDS SUMMARY | 2022-06-05 06:50 | XMS_ITS | Encounter Summary ---
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 recurrent major [place] [address] [facility] depressive disorder, [address] [place], [place] [phone] features ([facility]) [phone] ([facility]) (Prim basilio Dx) (Work) Social History Tobacco Use Types [...] Primary documented in this encounter Care Teams Hanger Off Relationship Specialty Start Date End Date Cristin Elizabeth NP PCP - General 01/14/18 documented as of this encounter
--- OUTSIDE RECORDS SUMMARY | 2022-06-05 06:50 | XMS_ITS | Encounter Summary ---
:1990 Author Organization [facility] Address [address] [place] [address] Care Team Providers Name Role Phone Cristin Elizabeth NP Primary Care Provider Unavailable Reason for Visit Reason Comments Wound Check vasectomy done on 05/09-has b een in pain all week, took vicodin 2 at a time; back to work this week very difficult. Encounter Details Date Type Department Care Team Description 05/16/2018 Office Visit [facility] Unknown, Prov MD raghavendra Evaluation postoperative testicular pain within 30 days vasectomy (Primary Dx); Family Medicine - Kerrie Delarosa MD [address] [place] [address] Vasectomy evaluation Deidre Ruff MD [address] [place], [place] [id number] [address] [place] [address] Social History Tobacco Use Types [...] Sign Reading Time Taken Comments Blood Pressure 128/74 05/16/2018918 EDT Pulse 66 05/16/2018918 EDT Temperature 36.6 ??C (97.9 ??F) 05/16/2018918 EDT Respiratory Rate 14 05/16/2018918 EDT Oxygen Saturation - - Inhaled Oxygen Concentration - - Weight 104.3 kg (230 lb) 05/16/2018918 EDT Height - - Body Mass Index 34.46 05/09/2018899 EDT documented in this encounter Functional Status [...] Sig Dispensed Refills Start Date End Date HYDROcodone-acetaminophen Take 1-2 Tabs by 8 Tab 0 04/1907/27/2019 (NORCO) 5-325 mg mouth every 6 hours tabletIndications: as needed for Pain. Vasectomy evaluation Daily Max: 8 Tabs ibuprofen (MOTRIN) 800 mg Take 1 Tab by mouth 30 Tab 0 0 05/16/2018 07/27/2019 tablet 3 times daily. documented in this encounter Progress Notes Kerrie Delarosa MD - 05/16/2018929 EDT Attestation statement for patient seen by attending: I saw and examined the patient on the day of this service and agree with the findings and plan of care documented in the resident's/fellow's note. Kerrie Delarosa MD Family Medicine Attending 05/27/2018 8:45 Deidre Wilson MD - 05/16/2018929 EDT CC: Wound Check (vasectomy done on 05/09-has been in pain all week, took vicodin 2 at a time; back towork this week very difficult.) Subjective: Zeeshan presents with concern for pain s/p vasectomy. Had vasectomy performed [address] Card. He reports pain and discomfort over the weekend edmund expected, however has had persistent pain this week limiting his ability to work. 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 He has been sent home from work d/t pain. He was given Rx for [place] 5/[address] Card but has not noticed significant relief with this.He is taking Tylenol 1000mg. He reports the pain is in the vas - denies pain in the testicle or penis. No dysuria, hematuria, difficulty urinating. No rash, redness/swelling. No fevers/chills. Review of Systems Constitutional: Negative for chills and fever. Gastrointestinal: Negative for melena. Genitourinary: Negative for dysuria, frequency and urgency. Problem list, past medical history, medications, allergies, social and family history reviewed and updated in PRISM as appropriate. Objective: Blood pressure 128/74, pulse 66, temperature 36.6 ??C (97.9 ??F), temperature source Tympanic, resp.rate 14, weight (!) 104.3 kg (230 lb). Physical Exam Constitutional: He is oriented to person, place, and time. He appears well- developed and well-nourished. No distress. HENT: Mouth/Throat: Mucous membranes are moist. Cardiovascular: Normal rate. Pulmonary/Chest: Effort normal. No respiratory distress. Genitourinary: Genitourinary Comments: Normal appearing external genitalia. Incision clean, dry, without surrounding erythema. Vas b/l with small lump at site of vasectomy palpable. No fluctuance appreciated.Testicles normal and nontender Neurological: He is alert and oriented to person, place, and time. Skin: Skin is warm and dry. He is not diaphoretic. Psychiatric: He has a normal mood and affect. His behavior is normal. Assessment/Plan: Diagnoses and all orders for this visit: Evaluation postoperative testicular pain within 30 days vasectomy: No evidence of infection, hematoma. Discussed with Dr. Card who performed procedure. Will recommend Ibuprofen 800mg TID x 1 week, ice,rest. OK to use [place] - new Rx given for 8 tabs. Will f/u with Dr. Card next week. Vasectomy evaluation - HYDROcodone-acetaminophen (NORCO) 5-325 mg tablet Other orders - ibuprofen (MOTRIN) 800 mg tablet Return in about 1 week (around 05/23/2018) for f/u vasectomy pain. Patient seen and discussed with Dr. Delarosa. Deidre Momin MD PGY-3 Family Medicine documented in this encounter Plan of Treatment Not on filedocumented as of this encounter Goals Goal Patient Goal Associated Recent Patient-Stated? Author Type Problems Progress Blood Pressure Blood Pressure Hypertensive 145/96 No Vosb urg, < 130/80 disorder (06/04/2022 SHIRA Boyd 13:12 EDT) documented as of this encounter Visit Diagnoses Diagnosis Evaluation postoperative testicular pain within 30 days vasectomy - Primary Other acute postoperative pain Vasectomy evaluation Other general counseling and advice for contraceptive management documented in this encounter Discontinued Medications Medication Sig Discontinue Reason Start Date End Date HYDROcodone-acetaminophe Take 1-2 Tabs by Reorder 03/13/2018 05/16/2018 n (NORCO) 5-325 mg mouth every 6 hours tabletIndications: as needed for Pain. Vasectomy evaluation Daily Max: 8 Tabs documented as of this encounter Care Teams Cvicu Rn Relationship Specialty Start Date End Date Cristin Elizabeth NP PCP - General 01/14/18 documented as of this encounter
--- OUTSIDE RECORDS SUMMARY | 2022-06-05 06:50 | XMS_ITS | Encounter Summary ---
:1990 Author Organization [facility] Address [address] [place] [address] Care Team Providers Name Role Phone Cristin Elizabeth NP Primary Care Provider Unavailable Reason for Visit Reason Comments Sterilization Encounter Details Date Type Department Care Team Description 05/09/2018 Office Visit [facility] Job Card Encounter for Family Medicine - MD Patricia vasectomy (Primary Dx) [address] [address] [phone] Social History Tobacco Use Types Packs/Day Years [...] Sign Reading Time Taken Comments Blood Pressure 160/80 05/09/2018 0900 EDT Patient nerv ous Pulse 68 05/09/2018 0900 EDT Temperature - - Respiratory Rate - - Oxygen Saturation - - Inhaled Oxygen Concentration - - Weight 105.2 kg (232 lb) 05/09/2018 0900 EDT Height 174 cm (5' 8.5) 05/09/2018 0900 EDT Body Mass Index 34.76 05/09/2018 0900 EDT documented in this encounter Functional Status Functional Status Response Date of Assessment Because of a physical, mental, or emotional condition, No 04/04/2018 does this person have difficulty doing errands alone such as visiting a doctor's office or shopping? Cognitive Status Response Date of Assessment Because of a physical, mental, or emotional condition, No 04/04/2018 does this person have serious difficulty concentrating, remembering, or making decisions? documented as of this encounter Progress Notes Job Card MD - 05/09/2018 0915 EDT Procedure Note: Vasectomy Date: 05/09/2018 Surgeon: Job Card MD Preop Diagnosis: Desire for permenent sterilization. Consent: Zeeshan Gonzalez Jr. is a 28 y.o. male who presents for vasectomy. We have already discussed in detail this procedure, including alternatives and potential for complications including but not limited to damage to local structures, bleeding, infection, ineffective contraception and even in rare cases. He was given the opportunity to ask an questions before beginning. He has a ride home. Consent forms reviewed. A time out was done to confirm that the correctly identified patient is presenting for vasectomy. Procedure: The skin of the entire perineum and surrounding area was prepared with chlorhexedine scrub and allowed to air dry. Area was sterile draped leaving an opening over the scrotum. Landmarks including the testes, midline raphe, vas deferens and neurovascular bundle where palpated though the scrotum. The right vas deferens was palpated and brought to just under the surface of the skin near the midline raphe. A 25 gauge 1 needle with 1% lidocaine was used to inject anesthetic in the skin and jose guadalupe vasal tissue. When anesthesia was obtained the vas and overlying skin where clamped with the vas clamp. The non- scalpel technique was used to deliver the vas through an opening in the Skin. A 2-3 cm section of the vas was freed from the perivasal tissue using blunt dissection. The distal end of the vas was held with the [place]'s forceps, the vas was cut with scissors. Gross anatomy of the vas lumen was confirmed by direct visualization and the proximal end's lumen was cauterized with the Vasectomy cautery. A purse string technique was then used to beary the proximal end in jose guadalupe-vasal tissue and prevent the vas ends from coming in close proximity. A 1-2 cm section of the distal vas was removed. Hemostasis was confirmed prior to returning the vas to the right scrotum. Attention was directed to the left scrotum and the identical procedure was completed there except skin anesthetic was not needed and the vas in this case was clamped directly through the previous skin incision. Hemostasis was confirmed prior to returning the vas to the left scrotum. Scrotum was cleaned and benzoin and a steri-strip where applied to close the external wound. After and during the procedure patient felt pain in the right testicle with radiation to the back. Ibeliieve the anesthetic to the right perivasal tissue was inadequate. The testicle was not swollen or tender 20 minutes after the right side procedure. Post vasectomy activity levels and care where reviewed. Patient has the post operative instructions. Follow up appointment within one week and for two semen analysis one week a part in three months andafter 20 ejaculations. Follow up exam in 3-4 months. Job Card MD Indy Torres LPN - 05/09/2018 0915 EDT Patient Education Topic:Patient was asked if they desired a customer success intern with the sensitive exam and declined today. documented in this encounter Plan of Treatment Not on filedocumented as of this encounter Goals Goal Patient Goal Associated Recent Patient-Stated? Author Type Problems Progress Blood Pressure Blood Pressure Hypertensive 145/96 No Vosb urg, < 130/80 disorder (06/04/2022 SHIRA Boyd 13:12 EDT) documented as of this encounter Visit Diagnoses Diagnosis Encounter for vasectomy - Primary Sterilization documented in this encounter Care Teams Economic Developer Relationship Specialty Start Date End Date Cristin Elizabeth NP PCP - General 01/14/18 documented as of this encounter
--- OUTSIDE RECORDS SUMMARY | 2022-06-05 06:50 | XMS_ITS | Encounter Summary ---
:1990 Author Organization [facility] Address [address] [place] [address] Care Team Providers Name Role Phone Cristin Elizabeth NP Primary Care Provider Unavailable Reason for Visit Reason Onset Date Comments Stress 05/02/2018 Encounter Details Date Type Department Care Team Description 05/02/2018 Telephone [facility] Aissatou EvansLINA Stress Medicine - [address] [place] [address] [place] [address] [phone] Social History Tobacco Use Types Packs/Day Years [...] on filedocumented in this encounter Care Teams Fare Enforcement Officer Relationship Specialty Start Date End Date Cristin Elizabeth, FIELD TEST ENGINEER PCP - General 01/14/18 documented as of this encounter
--- OUTSIDE RECORDS SUMMARY | 2022-06-05 06:50 | XMS_ITS | Encounter Summary ---
:1990 Author Organization [facility] Address [address] [place] [address] Care Team Providers Name Role Phone Michael Sandoval MD Primary Care Provider [phone] Reason for Visit Reason Comments Stress Encounter Details Date Type Department Care Team Description 12/26/2017 Office Visit [facility] JeanM arie Aissatou, PTSD ( post-traumatic Family Medicine - CONFIGURATION MANAGEMENT ADVISOR stress disorder) [address] (Primary Dx) [address] [place] [phone] Social History Tobacco Use Types Packs/Day Years [...] as of this encounter Visit Diagnoses Diagnosis PTSD (post-traumatic stress disorder) - Primary Posttraumatic stress disorder documented in this encounter Care Teams Medical Center Representative Relationship Specialty Start Date End Date Michael Sandoval MD PCP - General 05/17/17 01/13/18 documented as of this encounter
--- OUTSIDE RECORDS SUMMARY | 2022-06-05 06:50 | XMS_ITS | Encounter Summary ---
:1990 Author Organization [facility] Address [address] [place] [address] Care Team Providers Name Role Phone Cristin Elizabeth NP Primary Care Provider Unavailable Reason for Visit Reason Comments Stress Encounter Details Date Type Department Care Team Description 02/07/2018 Office Visit [facility] Aissatou Aj, Severe episode of Family Medicine - POT PRESS OPERATOR recurrent major [place] [address] [facility] depressive disorder, [address] [place], [place] [phone] features ([facility]) [phone] ([facility]) (Prim basilio Dx) (Work) Social History Tobacco [...] Primary documented in this encounter Care Teams Anatomic Pathologist Relationship Specialty Start Date End Date Cristin Elizabeth NP PCP - General 01/14/18 documented as of this encounter
--- OUTSIDE RECORDS SUMMARY | 2022-06-05 06:50 | XMS_ITS | Encounter Summary ---
:1990 Author Organization [facility] Address [address] [place] [address] Care Team Providers Name Role Phone Cristin Elizabeth NP Primary Care Provider Unavailable Reason for Visit Reason Comments Stress Encounter Details Date Type Department Care Team Description 03/21/2018 Office Visit [facility] Jean Marie Aissatou, PTSD ( post-traumatic Family Medicine - SENIOR INFORMATION DEVELOPER stress disorder) [address] (Primary Dx) [address] [place] [phone] Social History Tobacco Use Types Packs/Day Years [...] disorder documented in this encounter Care Teams Colorman Relationship Specialty Start Date End Date Cristin Elizabeth SKIN FITTER PCP - General 01/14/18 documented as of this encounter
--- OUTSIDE RECORDS SUMMARY | 2022-06-05 06:50 | XMS_ITS | Encounter Summary ---
:1990 Author Organization [facility] Address [address] [place] [address] Care Team Providers Name Role Phone Sixto Sandoval MD Unavailable Rigo Leonardo MD Primary Care Provider Unknown, Provider Primary Care Provider None, Provider Primary Care Provider Unavailable Madi Monique MD Primary Care Provider None, Provider Primary Care Provider Unavailable Michael Sandoval MD Primary Care Provider [phone] Cristin Elizabeth NP Primary Care Provider Unavailable Michael Sandoval MD Primary Care Provider [phone] None, Provider Primary Care Provider Unavailable Mar yKate Mcduffie MD Primary Care Provider Beverly Mix MD Primary Care Provider Rogelio Dominguez MD Primary Care Provider Madi Cook NP Primary Care Provider Reason for Visit Reason Onset Date Comments Appointment Related 05/31/2015 asthma registry- [facility] ient outreach. Encounter Details Date Type Department Care Team Description 05/31/2015 Telephone [facility] Shelia Anna RN Appoi ntment Related Adult Primary Care - (asthma registry- [facility] patient outreach.) [address] [place] [address] Social History Tobacco Use Types Packs/Day [...] 10:43 EDT documented as of this encounter Miscellaneous Notes Telephone Encounter - Shelia Gonzalez LPN - 05/31/2015 1520 EDT Phone call attempt made in regards to the asthma registry. Unable to reach patient due to a change in phone number or disconnection. Asthma letter will be sent to the patient. documented in this encounter Plan of Treatment Not on filedocumented as of this encounter Visit Diagnoses Not on filedocumented in this encounter Additional Health Concerns Infection Onset Date Last Indicated Resolved Time R/O COVID-19 08/18/2020 08/18/2020 08/23/2020 22:16 EDT R/O COVID-19 02/27/2021 02/27/2021 03/04/2021 22:15 EDT COVID-19 02/27/2021 02/27/2021 03/29/2021 22:15 EDT documented as of this encounter Care Teams Chemical Sales Representative Relationship Specialty Start Date End Date Sixto Sandoval MD PCP - Alternate 01/05/13 12/25/[address] [place] [phone] Rigo Leonardo MD PCP - General 06/04/14 09/12/15 [facility] Level [address] [place] [phone] Unknown, ProviderMD PCP - General 09/13/15 01/26/17 None, Provider PCP - General 01/27/17 02/05/17 Madi Monique MD PCP - General 02/06/17 04/14/17 None, Provider PCP - General 04/15/17 05/16/17 Michael Sandoval MD PCP - General 05/17/17 01/13/18 Cristin Elizabeth NP PCP - General 01/14/18 Michael Sandoval MD PCP - General 06/06/18 09/28/19 None, Provider PCP - General 09/29/19 01/07/20 Mary Kate Mcduffie MD PCP - General Family Medicine - 01/08/20 05/17/20 Primary Care Beverly Mix MD PCP - General Family Medicine - 05/18/20 02/01/21 [address] [place] [address] Rogelio Dominguez MD PCP - General Family Medicine - 02/02/21 11/02/21 [address] [place] [address] Madi Cook NP PCP - General Family Medicine - 11/03/[address] [place] [phone] documented as of this encounter
--- OUTSIDE RECORDS SUMMARY | 2022-06-05 06:50 | XMS_ITS | Encounter Summary ---
:1990 Author Organization [facility] Address [address] [place] [address] Care Team Providers Name Role Phone Madi Monique MD Primary Care Provider Reason for Visit Reason Comments Back Pain 2 week follow up Encounter Details Date Type Department Care Team Description 02/15/2017 Office Visit [facility] Unknown, Prov MD raghavendra Acute bilateral low Family Medicine - Madi Monique MD [address] [place] [phone] back pain with [place] bilateral sciatica [address] (Primary Dx) [place] [address] Social History Tobacco Use Types [...] Sign Reading Time Taken Comments Blood Pressure 134/82 02/15/2017 1405 EDT Pulse 84 02/15/2017 1405 EDT Temperature 36.6 ??C (97.8 ??F) 02/15/2017 1405 EDT Respiratory Rate 16 02/15/2017 1405 EDT Oxygen Saturation - - Inhaled Oxygen Concentration - - Weight 104.8 kg (231 lb) 02/15/2017 1405 EDT Height 175.3 cm (5' 9) 02/15/2017 1405 EDT Body Mass Index 34.11 02/15/2017 1405 EDT documented in this encounter Functional Status Functional Status Response Date of Assessment Because of a physical, mental, or emotional condition, No 02/15/2017 does this person have difficulty doing errands alone such as visiting a doctor's office or shopping? Cognitive Status Response Date of Assessment Because of a physical, mental, or emotional condition, No 02/15/2017 does this person have serious difficulty concentrating, remembering, or making decisions? documented as of this encounter Progress Notes Wilner Bradley MD - 02/15/2017 1415 EDT Attestation statement: I discussed the patient with the resident at the time of the visit and agree with the findings and the plan of care documented in the resident's note. Wilner Bradley MD Family Medicine Attending 02/20/2017 9:26 Madi Williamson - 02/15/2017 1415 EDT Subjective: Patient ID: Zeeshan Gonzalez Bianca is an 26 y.o. male. Chief Complaint Patient presents with ??? Back Pain 2 week follow up HPI Doing PT on [address] ([address]), 2x per week. It is helping. stretching and TENs unit. Took steroids for two days but stopped due to aggression. Pain level is 6/10 and bearable. Not taking flexerill. Zeeshan believes it will help and so does his PT. Does not need any refills today. Patient Active Problem List Diagnosis ??? Other activity ??? Obesity ??? Acanthosis nigricans ??? Depression ??? Hypertensive disorder ??? Asthma ??? Metabolic syndrome X ??? Right low back pain ??? Acute bilateral low back pain with bilateral sciatica See documentation in PRISM for past medical, surgical, social and family history, as well as active medications and allergies which were reviewed at this visit. Review of Systems Musculoskeletal: Positive for back pain. Negative for falls and joint pain. - See HPI Objective: Visit Vitals ??? BP 134/82 (BP Cuff Location: Right arm, Patient Position: Sitting, BP Cuff Sizes: Adult, regular) ??? Pulse 84 ??? Temp 36.6 ??C (97.8 ??F) ??? Resp 16 ??? Ht 175.3 cm (69) ??? Wt (!) 104.8 kg (231 lb) ??? BMI 34.11 kg/m2 Physical Exam Constitutional: He appears well-developed and well-nourished. No distress. Musculoskeletal: Tender to palpation at b/l paraspinal lumbar muscles, R>L. Intact heel and toe walk, sensation intact at inner thighs. No limp with ambulation. Neurological: He is alert. Skin: He is not diaphoretic. Nursing note and vitals reviewed. Assessment: Plan: Zeeshan was seen today for back pain. Diagnoses and all orders for this visit: Acute bilateral low back pain with bilateral sciatica Much improved with PT. Zeeshan is happy with progress and will continue with PT. F/U as needed. Return if symptoms worsen or fail to improve. The patient was discussed with the attending physician Dr. Bradley at the time of the visit. Madi Monique MD 02/18/2017 14:14 Family Medicine PGY#3 #[id number] documented in this encounter Plan of Treatment Not on filedocumented as of this encounter Visit Diagnoses Diagnosis Acute bilateral low back pain with bilat eral sciatica - Primary documented in this encounter Discontinued Medications Medication Sig Discontinue Reason Start Date End Date predniSONE (DELTASONE) Take 3 tabs for 3 Patient Stopped Taking 02/15/2017 20 mg tablet days, 2 tabs for 3 days, 1 tab for 3 days, 1/2 tab for 3 days. documented as of this encounter Care Teams Pneumatic Systems Operator Relationship Specialty Start Date End Date Madi Monique MD PCP - General 02/06/17 04/14/17 documented as of this encounter
--- OUTSIDE RECORDS SUMMARY | 2022-06-05 06:50 | XMS_ITS | Encounter Summary ---
:1990 Author Organization [facility] Address [address] [place] [address] Care Team Providers Name Role Phone Cristin Elizabeth NP Primary Care Provider Unavailable Reason for Visit Reason Comments Stress Encounter Details Date Type Department Care Team Description 01/17/2018 Office Visit [facility] Aissatou Aj, Severe episode of Family Medicine - CURRICULUM FACILITATOR recurrent major [place] 28 [facility] depressive disorder, [address] [place], [place] [phone] features ([facility]) [phone] ([facility]) (Prim basilio Dx) (Work) Social History Tobacco [...] Primary documented in this encounter Care Teams Urgent Care Nurse Practitioner Relationship Specialty Start Date End Date Cristin Elizabeth NP PCP - General 01/14/18 documented as of this encounter
--- OUTSIDE RECORDS SUMMARY | 2022-06-05 06:50 | XMS_ITS | Encounter Summary ---
:1990 Author Organization [facility] Address [address] [place] [address] Care Team Providers Name Role Phone Cristin Elizabeth AOC PLANS INTELLIGENCE OFFICER Primary Care Provider Unavailable Reason for Visit Reason Onset Date Comments No Show 01/15/2018 Encounter Details Date Type Department Care Team Description 01/15/2018 Telephone [facility] Cristin Elizabeth, AOC PLANS INTELLIGENCE OFFICER No Show [address] [address] Social History Tobacco Use Types Packs/Day Years [...] this encounter Miscellaneous Notes Telephone Encounter - Allie Rain - 01/15/2018 9445 EST Message left for patient regarding a missed appointment 01/14/18. documented in this encounter Plan of Treatment Not on filedocumented as of this encounter Visit Diagnoses Not on filedocumented in this encounter Care Teams Teen Counselor Relationship Specialty Start Date End Date Cristin Elizabeth AOC PLANS INTELLIGENCE OFFICER PCP - General 01/14/18 documented as of this encounter
--- OUTSIDE RECORDS SUMMARY | 2022-06-05 06:50 | XMS_ITS | Encounter Summary ---
:1990 Author Organization [facility] Address [address] [place] [address] Care Team Providers Name Role Phone Cristin Elizabeth EXTRACT WRINGER Primary Care Provider Unavailable Reason for Visit Reason Onset Date Comments Referral Request 02/14/2018 Encounter Details Date Type Department Care Team Description 02/14/2018 Telephone [facility] Family Cristin Elizabeth, EXTRACT WRINGER Referral Request [facility] - [address] [id number] Social History Tobacco Use Types Packs/Day Years [...] this encounter Miscellaneous Notes Telephone Encounter - PerryArelis - 02/14/2018 1046 EDT Left message on machine - if patient has not heard from [facility] to schedule, he should call them directly: [phone]. documented in this encounter Plan of Treatment Not on filedocumented as of this encounter Visit Diagnoses Not on filedocumented in this encounter Care Teams Rn Ed Relationship Specialty Start Date End Date Cristin Elizabeth, EXTRACT WRINGER PCP - General 01/14/18 documented as of this encounter
--- OUTSIDE RECORDS SUMMARY | 2022-06-05 06:50 | XMS_ITS | Encounter Summary ---
:1990 Author Organization [facility] Address [address] [place] [address] Care Team Providers Name Role Phone Cristin Elizabeth STATIONARY FIREMAN Primary Care Provider Unavailable Reason for Visit Reason Comments Depression Encounter Details Date Type Department Care Team Description 04/04/2018 Office Visit [facility] Cristin Elizabeth, Sev ere episode of Family Medicine - STATIONARY FIREMAN recurrent major Marshall depressive disorder, [address] [place] [address] features ([facility]) [phone] (Primary Dx) Social History Tobacco Use Types [...] Sign Reading Time Taken Comments Blood Pressure 152/88 04/04/2018 0835 EDT Pulse 72 04/04/2018 0835 EDT Temperature - - Respiratory Rate - - Oxygen Saturation - - Inhaled Oxygen Concentration - - Weight 105.2 kg (232 lb) 04/04/2018 0835 EDT with shoes Height - - Body Mass Index 34.76 03/13/2018 0945 EDT documented in this encounter [...] encounter Progress Notes Cristin Elizabeth NP - 04/04/2018 0830 EDT Subjective: Patient ID: Zeeshan Gonzalez Jr. is an 28 y.o. male. Chief Complaint Patient presents with ??? Depression HPI Depression Zeeshan says he has had a hard week. Hew as unable to get good gifts for his children's mothers for and they were both mad. He says his girlfriend always tries to make decisions for him. He would like medical marijuana. He continues to have suicidal thoughts, but no plan. Patient Active Problem List Diagnosis ??? Other [...] Daily Max: 1 Tab 1 Tab 0 ??? sertraline (ZOLOFT) 100 mg tablet Take 2 Tabs by mouth daily. 60 Tab 0 No current facility-administered medications on [...] suicidal ideas. - See HPI Objective: BP (!) 152/88 (BP Cuff Location: Right arm, Patient Position: Sitting) Pulse 72 Wt (!) 105.2 kg (232 lb) Comment: with shoes BMI 34.76 kg/m2 Physical Exam Constitutional: He is oriented [...] pulses. Pulmonary/Chest: Effort normal. No respiratory distress. Musculoskeletal: Normal range of motion. Neurological: He is alert and oriented to person, place, and time. Skin: Skin is warm and dry. No rash noted. He is not diaphoretic. Psychiatric: He has a normal mood and affect. His behavior is normal. Judgment normal. He expresses suicidal ideation. He expresses no suicidal plans. Flat affect Assessment: 1. depression Plan: Diagnoses and all orders for this visit: Severe episode of recurrent major depressive disorder, without psychotic features ([facility]) - ARIPiprazole (ABILIFY) 10 mg tablet; Take 1 Tab by mouth daily. -increase abilify. Will see how he feels in 1 month. If not improved then will try wellbutrin. He will bring in medical marijuana paperwork documented in this encounter Plan of Treatment Not on filedocumented as of this encounter Visit Diagnoses Diagnosis Severe episode of recurrent major depres sive disorder, without psychotic features (HCC) - Primary documented in this encounter Discontinued Medications Medication Sig Discontinue Reason Start Date End Date ARIPiprazole (ABILIFY) 5 Take 1 Tab by Reorder 03/14/2018 mg tabletIndications: mouth daily. Severe episode of recurrent major depressive disorder, without psychotic features (HCC) documented as of this encounter Care Teams Flight Control Tower Operator Relationship Specialty Start Date End Date Cristin Elizabeth STATIONARY FIREMAN PCP - General 01/14/18 documented as of this encounter
--- OUTSIDE RECORDS SUMMARY | 2022-06-05 06:50 | XMS_ITS | Encounter Summary ---
:1990 Author Organization [facility] Address [address] [place] [address] Care Team Providers Name Role Phone Sixto Sandoval MD Unavailable Wolf Bethea MD MPH Primary Care Provider Reason for Visit Reason Onset Date Comments No Show 12/23/2013 Encounter Details Date Type Department Care Team Description 12/23/2013 Telephone [facility] Adult Jsoe Bethea MD No Show Primary Care - Gabino lantigua MPH 1 [facility] [address] [place] [address] [place] [address] (Wo rk) Social History Tobacco Use Types Packs/Day Years Used Date Current Every Day Smoker Cigarettes 0.5 7 Smokeless Tobacco: Never Used Comments: off [...] this encounter Miscellaneous Notes Telephone Encounter - Kanika Yap - 12/23/2013 1432 EST Patient stated he doesn't want to reschedule at this time. elephone Encounter - James Mounika - 12/23/2013 1207 EST NO SHOW documented in this encounter Plan of Treatment Not on filedocumented as of this encounter Visit Diagnoses Not on filedocumented in this encounter Care Teams Traffic Line Painter Relationship Specialty Start Date End Date Sixto Sandoval MD PCP - Alternate 01/05/13 12/25/15 [address] [place] [id number] Wolf Bethea MD MPH PCP - General 03/19/13 06/03/14 1 [facility] [address] [place] [address] documented as of this encounter
--- OUTSIDE RECORDS SUMMARY | 2022-06-05 06:50 | XMS_ITS | Encounter Summary ---
:1990 Author Organization [facility] Address [address] [place] [address] Care Team Providers Name Role Phone Michael Sandoval MD Primary Care Provider [phone] Reason for Visit Reason Onset Date Comments Appointment Related 12/19/2017 Encounter Details Date Type Department Care Team Description 12/19/2017 Telephone [facility] Michael Sandoval, Appointment Related Family Medicine - [address] [phone] (Wo rk) Social History Tobacco Use Types [...] this encounter Miscellaneous Notes Telephone Encounter - Arelis Amador - 12/19/2017 1633 EST Left message on machine for patient to call to schedule with Aissatou Aj. documented in this encounter Plan of Treatment Not on filedocumented as of this encounter Visit Diagnoses Not on filedocumented in this encounter Care Teams Leaf Tier Relationship Specialty Start Date End Date Michael Sandoval MD PCP - General 05/17/17 01/13/18 documented as of this encounter
--- OUTSIDE RECORDS SUMMARY | 2022-06-05 06:50 | XMS_ITS | Encounter Summary ---
:1990 Author Organization [facility] Address [address] [place] [address] Care Team Providers Name Role Phone Sixto Sandoval MD Unavailable Wolf Bethea MD MPH Primary Care Provider [phone] Encounter Details Date Type Department Care Team Description 12/01/2013 Phlebotomy Only [facility] - Firmware Manager, Abd ominal pain; [facility] Outpatient LFTs abnormal [address] [place], [place] [address] [phone] Social History Tobacco Use Types Packs/Day Years [...] 10:43 EDT documented as of this encounter Plan of Treatment Not on filedocumented as of this encounter Procedures Procedure Name Priority Date/Time Associated Comments Diagnosis HEPATITIS C AB W REFLEX Routine 12/01/2013 10:28 Abdomin al pain Results for this TO HCV RNA BY PCR EST LFTs abnormal procedure are in the results section. IBC Routine 12/01/2013 10:28 Abdominal pain Results for this EST LFTs abnormal procedure are in the results section. TISSUE TRANSGLUTAMINASE Routine 12/01/2013 10:28 Abdomin al pain Results for this AB EST LFTs abnormal procedure are in the results section. CERULOPLASMIN, S Routine 12/01/2013 10:28 Abdominal pain Results for this EST LFTs abnormal procedure are in the results section. HELICOBACTER PYLORI IGG Routine 12/01/2013 10:28 Abdomin al pain Results for this ANTIBODY EST LFTs abnormal procedure are in the results section. HEPATITIS B SURFACE Routine 12/01/2013 10:28 Abdominal p ain Results for this ANTIGEN EST LFTs abnormal procedure are in the results section. IMMUNOGLOBULINS Routine 12/01/2013 10:28 Abdominal pain Results for this EST LFTs abnormal procedure are in the results section. IRON Routine 12/01/2013 10:28 Abdominal pain Results for this EST LFTs abnormal procedure are in the results section. FERRITIN Routine 12/01/2013 10:28 Abdominal pain Results for this EST LFTs abnormal procedure are in the results section. CK Routine 12/01/2013 10:28 LFTs abnormal Results for this EST Abdominal pain procedure are in the results section. documented in this encounter Results HEPATITIS C ANTIBODY (12/01/2013 10:28 EST) Pathologist Sig nature Hepatitis C Ab NegativeComment: [facility] Reference Range: Negative Specimen Blood specimen (specimen) Performing Organization Address City/[facility]/ZIP Code Phon e Number [facility] [address] [place] [address] SERVICES [facility] [address] [place] [address] HEPATITIS B SURFACE ANTIGEN (12/01/2013 10:28 EST) Hepatitis B Surface NegativeComment: [facility] B Ag Reference Range: Negative Specimen Blood specimen (specimen) Performing Organization Address City/[facility]/ZIP Code Phon e Number [facility] [address] [place] [address] SERVICES [facility] [address] [place] [address] HELICOBACTER PYLORI IGG ANTIBODY (12/01/2013 10:28 EST) H. Pylori IgG Ab NegativeComment: [facility] Assayed utilizing the RedPath Integrated PathologyX system. Specimen Blood specimen (specimen) Performing Organization Address City/State/ZIP Code Phon e Number [facility] [address] [place] [address] SERVICES [facility] [address] [place] [address] CK (12/01/2013 10:28 EST) Pathologist Sig nature CK 219 0 - 250 U/L [facility] Specimen Blood specimen (specimen) Performing Organization Address [facility] Phon e Number [facility] [address] [place] [address] SERVICES [facility] [address] [place] [address] IBC (12/01/2013 10:28 EST) Pathologist Sig nature TIBC 352 261 - 462 ug/dl [facility] Specimen Blood specimen (specimen) Performing Organization Address [facility] Phon e Number [facility] [address] [place] [address] SERVICES [facility] [address] [place] [address] IRON (12/01/2013 10:28 EST) Pathologist Sig [facility] Iron 108 70 - 180 ug/dl [facility] Specimen Blood specimen (specimen) Performing Organization Address [facility] Phon e Number [facility] [address] [place] [address] SERVICES [facility] [address] [place] [address] FERRITIN (12/01/2013 10:28 EST) Pathologist Sig [facility] Ferritin 137 22 - 322 ng/mL [facility] Specimen Blood specimen (specimen) Performing Organization Address [facility] Phon e Number [facility] [address] [place] [address] SERVICES [facility] [address] [place] [phone] CERULOPLASMIN (12/01/2013 10:28 EST) Pathologist [facility] Cerulplasmin 20.2 15.0 - 30.0 [facility] Comment: mg/dL Performed by: [facility] [place], [address] , [place] [address], Teaching Manager: Marina Mitchell, Ph.D. Specimen Blood specimen (specimen) Performing Organization Address [facility] Phon e Number [facility] [address] [place] [phone] SERVICES [facility] [address] [place] [address] TTG AB, IGA, S (12/01/2013 10:28 EST) tTG Ab, IgA, S <1.2 <4.0 [facility] Comment: (Negative) LAB Performed by: [facility], [address], [place], [place] [address], Teaching Manager: Marina Mitchell, Ph.D. Specimen Blood specimen (specimen) Performing Organization Address [facility] Phon e Number [facility] [address] [place] [address] SERVICES [facility] [address] [place] [address] IMMUNOGLOBULINS (12/01/2013 10:28 EST) Pathologist Sig nature IgG 1,300 751 - 1,560 mg/dl [facility] IgA 183 82 - 453 mg/dl [facility] IgM 99 46 - 304 mg/dl [facility] Specimen Blood specimen (specimen) Performing Organization Address [facility] Phon e Number [facility] [address] [place] [address] SERVICES [facility] [address] [place] [address] documented in this encounter Visit Diagnoses Diagnosis Abdominal pain Abdominal pain, unspecified site LFTs abnormal Other abnormal blood chemistry documented in this encounter Care Teams Lurer Relationship Specialty Start Date End Date Sixto Sandoval MD PCP - Alternate 01/05/13 12/25/15 [address] [place] [address] Wolf Bethea MD MPH PCP - General 03/19/13 06/03/14 1 [facility] [address] [place] [address] documented as of this encounter
--- OUTSIDE RECORDS SUMMARY | 2022-06-05 06:50 | XMS_ITS | Encounter Summary ---
:1990 Author Organization [facility] Address [address] [place] [address] Care Team Providers Name Role Phone Cristin Elizabeth NP Primary Care Provider Unavailable Reason for Visit Reason Comments Advice Only here to discuss vasectomy Medication Management please remove Lorazepam from med list Encounter Details Date Type Department Care Team Description 03/13/2018 Office Visit [facility] Job Card Vasectomy evaluation (Primary Dx); Family Medicine - MD Patricia [address] [phone] Social History Tobacco Use Types Packs/Day Years [...] Sign Reading Time Taken Comments Blood Pressure - - Pulse - - Temperature 36.2 ??C (97.2 ??F) 03/13/2018 0945 EDT Respiratory Rate - - Oxygen Saturation - - Inhaled Oxygen Concentration - - Weight 105.7 kg (233 lb) 03/13/2018 0945 EDT Height 174 cm (5' 8.5) 03/13/2018 0945 EDT Body Mass Index 34.91 03/13/2018 0945 EDT documented in this encounter Functional Status Functional Status Response Date of Assessment Because of a physical, mental, or emotional condition, No 03/13/2018 does this person have difficulty doing errands alone such as visiting a doctor's office or shopping? Cognitive Status Response Date of Assessment Because of a physical, mental, or emotional condition, No 03/13/2018 does this person have serious difficulty concentrating, remembering, or making decisions? documented as of this encounter Ordered Prescriptions Prescription Sig Dispensed Refills Start Date End Date HYDROcodone-acetaminophen Take 1-2 Tabs by 6 Tab 0 02/1705/16/2018 (NORCO) 5-325 mg mouth every 6 hours tabletIndications: as needed for Pain. Vasectomy evaluation Daily Max: 8 Tabs LORazepam (ATIVAN) 1 mg Take 1 Tab by mouth 1 Tab 0 07/27/2019 tabletIndications: once for 1 dose. 30 Anxiety minutes before appointment. Daily Max: 1 Tab documented in this encounter Progress Notes Job Card MD - 03/13/2018 0945 EDT CC: Advice Only (here to discuss vasectomy) and Medication Management (please remove Lorazepam from med list) Subjective: Zeeshan is a 27 y.o. who presents for vasectomy consultation. Pre Vasectomy Consultation: Have already made the decision to have vasectomy Past methods of control: OCP's Current control: OCP's Results of physical exam in the past 5 years: no concerns. Recent problems since you last physical: none. Past Medical History: Diagnosis Date ??? Asthma ??? Chicken pox As a child ??? Depression No past surgical history on file. Current Outpatient Prescriptions on File Prior to Visit Medication Sig Dispense Refill ??? sertraline (ZOLOFT) 100 mg tablet Take 1.5 Tabs by mouth daily. 45 Tab 0 No current facility-administered medications on file prior to visit. Does not take blood thinners. No recent aspirin therapy. No reactions to diazepam or oral narcotics. Allergies Allergen Reactions ??? Cats ??? Pollen Extracts Social History Social History ??? Marital status: Single Spouse name: N/A ??? Number of children: N/A ??? Years of education: N/A Social History Main Topics ??? Smoking status: Current Every Day Smoker Packs/day: 1.00 Years: 7.00 Types: Cigarettes ??? Smokeless tobacco: Never Used Comment: off and on for 7 years ??? Alcohol use No Comment: occasionally ??? Drug use: 5.00 per week Special: Marijuana Comment: every other day He states,I am almost done with marjuana I do 2 hits per day ??? Sexual activity: Yes Partners: Female Other Topics Concern ??? None Social History Narrative Been with partner for 6 years with 3 children age 4,2 and 2 months. Reason for choosing permenant control: Has had all the children he wants. Having been considering vasectomy for 1 year (time frame). Patient and partner are aware that the procedure is permanent. Partner is in agreement with having the procedure. No restoration or family concerns about sterilization. Would precede even knowing they wouldn't want children if their family was tragically lost, or if they met someone who wanted children.No expectations that it will change their relationship. Discussed risks of bleeding, injection, pain, damage to organs, lack of sterility, and rarely and the benefits and alternatives. The patient had opportunities for questions and signed the writtenconsent forms. ROS Problem list, past medical history, medications, allergies, social and family history reviewed and updated in [facility]ISM as appropriate. Objective: Temperature 36.2 ??C (97.2 ??F), temperature source Tympanic, height 174 cm (68.5), weight (!) 105.7 kg (233 lb). Physical Exam Constitutional: No distress. HENT: Head: Atraumatic. Cardiovascular: Normal rate, regular rhythm and normal heart sounds. No murmur heard. Pulmonary/Chest: Effort normal and breath sounds normal. No respiratory distress. He has no wheezes.He has no rales. Genitourinary: Genitourinary Comments: Genitalia: Penis normal without discharge, testis descended bilateral without masses or tenderness, epididymus normal bilateral, no hernias. Vas deferens palpable bilaterally. Musculoskeletal: He exhibits no edema. Neurological: He is alert. Skin: Skin is warm and dry. Psychiatric: His behavior is normal. Assessment/Plan: Diagnoses and all orders for this visit: Vasectomy evaluation - HYDROcodone-acetaminophen (NORCO) 5-325 mg tablet - Discussed risks and benefits. Anxiety - LORazepam (ATIVAN) 1 mg tablet Requested with treatment Job Card MD Deb Umana LPN - 03/13/2018 0945 EDT Patient Education Topic: Health Care Proxy Method: Handout and Verbal Taught to: Patient Barriers: None Outcomes: independent and verbalized understanding Signature: documented in this encounter Plan of Treatment Not on filedocumented as of this encounter Visit Diagnoses Diagnosis Vasectomy evaluation - Primary Other general counseling and advice for contraceptive management Anxiety Anxiety state, unspecified documented in this encounter Discontinued Medications Medication Sig Discontinue Reason Start Date End Date acetaminophen (TYLENOL) Take 650 mg by Patient Stopped Taking 03/13/2018 325 mg tablet mouth every 4 hours as needed for Pain. ibuprofen (MOTRIN) 200 Take 600 mg by Patient Stopped Taking 03/13/2018 mg tablet mouth every 6 hours as needed for Pain. LORazepam (ATIVAN) 1 mg Take 1 Tab by Reorder 02/28/2018 tabletIndications: mouth once for 1 Anxiety dose. Daily Max: 1 Tab documented as of this encounter Care Teams Web Sizer Relationship Specialty Start Date End Date Cristin Elizabeth NP PCP - General 01/14/18 documented as of this encounter
--- OUTSIDE RECORDS SUMMARY | 2022-06-05 06:50 | XMS_ITS | Encounter Summary ---
:1990 Author Organization [facility] Address [address] [place] [address] Care Team Providers Name Role Phone Michael Sandoval MD Primary Care Provider [phone] Reason for Visit Reason Comments Foot Injury L foot laceration dropped a mirror on foot last night. Unknown tetanus status. Pt dressed wound wit h closure strips and bandaid Encounter Details Date Type Department Care Team Description 07/31/2019 Emergency [facility] Tangela Mendoza PA-C [address] [place] [address], [address] [place] [address] Laceration of left foot, initial encount er (Primary Dx); Emergency Department Emergency, MD Pedro Pablo [address] [address] Social History Tobacco Use Types [...] Sign Reading Time Taken Comments Blood Pressure 119/83 07/31/2019 0732 EDT Pulse 77 07/31/2019 0732 EDT Temperature 36.2 ??C (97.2 ??F) 07/31/2019 0732 EDT Respiratory Rate 16 07/31/2019 0732 EDT Oxygen Saturation 100% 07/31/2019 0732 EDT Inhaled Oxygen Concentration - - Weight 83 kg (183 lb) 07/31/2019 0732 EDT Height 172.7 cm (5' 8) 07/31/2019 0732 EDT Body Mass Index 27.83 07/31/2019 0732 EDT documented in this encounter Functional Status [...] as of this encounter Discharge Diagnoses Diagnosis S91.312A Laceration without foreign body , left foot, initial encounter-S91.312A[ICD-10-CM] W25.XXXA Contact with sharp glass, initi al encounter-W25.XXXA[ICD-10-CM] B00.9 Herpesviral infection, unspecified -B00.9[ICD-10-CM] F17.210 Nicotine dependence, cigarettes, uncomplicated-F17.210[ICD-10-CM] Z23 Encounter for immunization-Z23[ICD-1 0-CM] documented in this encounter Discharge Instructions Pamella Majano PA - 07/31/2019 Thank you for visiting the emergency room today you have sustained a laceration to the top of your foot. 3 sutures were placed. Please have these removed in approximately 7 days. If you notice any signs of infection such as swelling, erythema or discharge please be seen sooner by your primary care provider for antibiotics. Your new medication has been sent to your pharmacy at [facility] in [place]. Please follow-up with any new or worsening symptoms. AttachmentsThe following attachments cannot be sent through Care Everywhere. Lacerations: Stitches (Stateless)documented in this encounter Medications at Time of Discharge Medication Sig Dispensed Refills Start Date End Date acyclovir (ZOVIRAX) 200 2 tablets every 8 60 Cap 0 07/3102/08/2021 mg capsule hours for 10 days documented as of this encounter Ordered Prescriptions Prescription Sig Dispensed Refills Start Date End Date acyclovir (ZOVIRAX) 200 2 tablets every 8 60 Cap 0 07/3102/08/2021 mg capsule hours for 10 days documented in this encounter Discharge Disposition Disposition Code Departure Means Destination Home or Self Care documented in this encounter ED Notes Pamella Santos PA - 07/31/2019 0856 EDTAssociated Order(s): Laceration DOS: 07/31/2019 Chief Complaint Patient presents with ??? Foot Injury L foot laceration dropped a mirror on foot last night. Unknown tetanus status. Pt dressed wound with closure strips and bandaid HPI The patient is a 29 y.o. male who presents today with Foot Injury (L foot laceration dropped a mirror on foot last night. Unknown tetanus status. Pt dressed wound with closure strips and bandaid ) HPI Patient presents today with a laceration to his left foot. He states a mirror fell onto it yesterday. He is able to bear weight without issue however the skin is broken and Steri-Strips did not work for him last evening. Bleeding is well controlled. He has normal sensation to his foot and toes. He is here today with his partner. He does also endorse some concern for a genital wound. He states his partner takes acyclovir for herpes virus and he is wondering if he is now infected with the same virus secondary to this wound. He would like to be tested. Review of Systems Review of Systems Constitutional: Negative for chills and diaphoresis. HENT: Negative for facial swelling and voice change. Eyes: Negative for redness. Respiratory: Negative for choking and shortness of breath. Genitourinary: Positive for genital sores. Skin: Positive for wound. Negative for color change and pallor. Neurological: Negative for tremors, facial asymmetry, speech difficulty, weakness and numbness. Psychiatric/Behavioral: Negative for agitation, confusion and suicidal ideas. The patient is not nervous/anxious. The patient's past medical, family and social history was reviewed and updated as needed. Allergies Allergen Reactions ??? Cats ??? Pollen Extracts Vital Signs Temp: 36.2 ??C (97.2 ??F) Pulse: 77 Resp: 16 SpO2: 100 % BP: 119/83 BP Device: BP Machine O2 Device: None (Room air) Physical Exam Constitutional: He is oriented to person, place, and time. He appears well- developed and well-nourished. No distress. HENT: Head: Normocephalic and atraumatic. Neck: Normal range of motion. Neck supple. Cardiovascular: Normal rate and regular rhythm. Pulmonary/Chest: Effort normal. Genitourinary: Penis normal. Cremasteric reflex is present. Right testis shows no mass, no swelling and no tenderness. Right testis is descended. Cremasteric reflex is not absent on the right side. Left testis shows no swelling and no tenderness. Left testis is descended. Cremasteric reflex is not absent on the left side. Genitourinary Comments: Small cluster of vesicles that are open and weeping under the left testicle. Musculoskeletal: Left foot: There is laceration. There is normal range of motion, no tenderness, no bony tenderness,no swelling, normal capillary refill, no crepitus and no deformity. Neurological: He is alert and oriented to person, place, and time. Skin: Skin is warm and dry. He is not diaphoretic. Psychiatric: He has a normal mood and affect. His behavior is normal. Judgment and thought content normal. Intact pedal pulse to the left leg. Normal sensation and capillary refill of the left foot. Good range of motion of all the toes and ankle strength 5 out of 5 in each direction. RESULTS EKG orders: None Radiology orders: None Laceration Date/Time: 07/31/2019 8:59 Performed by: Pamella Santos PA Authorized by: Pamella Santos PA Consent: Verbal consent obtained. Risks and benefits: risks, benefits and alternatives were discussed Consent given by: patient Patient understanding: patient states understanding of the procedure being performed Patient identity confirmed: verbally with patient Time out: Immediately prior to procedure a time out was called to verify the correct patient, procedure, equipment, customer support technician and site/side marked as required. Body area: lower extremity Location details: left foot Laceration length: 3 cm Foreign bodies: no foreign bodies Tendon involvement: none Nerve involvement: none Vascular damage: no Anesthesia: local infiltration Anesthesia: Local Anesthetic: lidocaine 1% without epinephrine Anesthetic total: 3 mL Sedation: Patient sedated: no Preparation: Patient was prepped and draped in the usual sterile fashion. Irrigation solution: saline Irrigation method: syringe Amount of cleaning: standard Debridement: none Degree of undermining: none Skin closure: 4-0 Prolene Number of sutures: 3 Technique: simple Approximation: close Approximation difficulty: simple Dressinx4 sterile gauze Patient tolerance: Patient tolerated the procedure well with no immediate complications ED COURSE A medical screening exam was performed. Laceration repaired with 3 sutures without complication. Normal sensation, pallor and capillary refill to the left lower extremity following sutures. Sutures need to be kept clean and dry for the next 7 to 10 days. Recommendation having these out and at least 10 days however at 7 it would be appropriate to be seen by your primary care provider. Any signs or symptoms of infection we discussed you needto be signed sooner to start antibiotics. Tetanus was updated today. Secondary to your physical examination I would agree you are having a primary outbreak of herpes virus. I will start you on acyclovir in the medication to your pharmacy. Fortunately you have good education and awareness around this is your partner to has this infection. Final diagnoses: Laceration of left foot, initial encounter Herpes DISPOSITION: Discharged The patient's pain was managed [...] Condition at departure from the Emergency Department: Stable PCP: Michael Hansen 07/31/2019 9:01 No flowsheet data found. Kerrie Carrion RN - 07/31/2019 0855 EDT Patient discharged stable, VSS, ambulatory to [facility]. Patient verbalized understanding of AVS. Kerrie Carrion RN - 07/31/2019 0854 EDT HSV swab sent to lab for analysis Kerrie Carrion RN - 07/31/2019 0818 EDT PA at bedside to eval Kerrie Carrion RN - 07/31/2019 0741 EDT RN to room, pt reports dropping corner of mirror onto top of left foot last night. Wound closed withsteri strip, edges well approximated, skin around wound is pink/dry/intact. No signs of redness, drainage. Pt also requesting male doctor d/t private, personal things. Pt informed we cannot guaranteea male provider, pt would not share any other info with this RN. Kerrie Carrion RN - 07/31/2019 0735 EDT Pt ambulatory to treatment room with steady gait. documented in this encounter Plan of Treatment Not on filedocumented as of this encounter Goals Goal Patient Goal Associated Recent Patient-Stated? Author Type Problems Progress Blood Pressure Blood Pressure Hypertensive 145/96 No Vosb urg, < 130/80 disorder (06/04/2022 SHIRA Boyd 13:12 EDT) documented as of this encounter Procedures Procedure Name Priority Date/Time Associated Comments Diagnosis LACERATION REPAIR Routine 07/31/2019 8:56 EDT Res ults for this procedure are i n the results section. HERPES SIMPLEX VIRUS Routine 07/31/2019 8:55 EDT Results for this MOLECULAR DETECTION, procedu re are in PCR the results section. documented in this encounter Results Laceration (07/31/2019 8:56 EDT) Narrative [facility] EKG - 07/31/2019 8:56 EDT Pamella Santos PA ? 07/31/2019 ??9:02 Laceration Date/Time: 07/31/2019 8:59 Performed by: Pamella Santos PA Authorized by: Pamella Santos PA Consent: Verbal consent obtained. Risks and benefits: risks, benefits and alternatives were discussed Consent given by: patient Patient understanding: patient states un derstanding of the procedure being performed Patient identity confirmed: verbally wit h patient Time out: Immediately prior to procedure a time out was called to verify the correct patient, procedure, equipmen t, customer support technician and site/side marked as required. Body area: lower extremity Location details: left foot Laceration length: 3 cm Foreign bodies: no foreign bodies Tendon involvement: none Nerve involvement: none Vascular damage: no Anesthesia: local infiltration Anesthesia: Local Anesthetic: lidocaine 1% without e pinephrine Anesthetic total: 3 mL Sedation: Patient sedated: no Preparation: Patient was prepped and matthew ped in the usual sterile fashion. Irrigation solution: saline Irrigation method: syringe Amount of cleaning: standard Debridement: none Degree of undermining: none Skin closure: 4-0 Prolene Number of sutures: 3 Technique: simple Approximation: close Approximation difficulty: simple Dressinx4 sterile gauze Patient tolerance: Patient tolerated the procedure well with no immediate complications Performing Organization Address City/State/ZIP Code Phon e Number [facility] EKG (ABNORMAL) HERPES SIMPLEX VIRUS MOLECULAR DETECTION, PCR (07/31/2019 8:55 EDT) Specimen Description [facility] HSV1 DNA Result POSITIVE (AA) [facility] HSV2 DNA Result Negative [facility] Specimen Other (qualifier value) - Other Performing Organization Address City/State/ZIP Code Phon e Number [facility] [address] [place] [address] SERVICES documented in this encounter Visit Diagnoses Diagnosis Laceration of left foot, initial encount er - Primary Herpes Herpes simplex without mention of compli cation documented in this encounter Administered Medications Inactive Administered Medications - up to 3 most recent administrations Medication Order MAR Action Action Date Dose Rate Site tetanus toxoid, reduced Given 07/31/2019 9:08 EDT 0.5 mL Left Deltoid diphtheria toxoid, acellular pertussis vaccine (BOOSTRIX) IM injection 0.5 mL 0.5 mL, intramuscular, NOW X1, 1 dose, On Sat07/31/19 at 0915, STAT documented in this encounter Active and Recently Administered Medications Times are shown in EDT. Scheduled Medication Order 07/29/2019 07/30/201907/31/2019 tetanus toxoid, reduced diphtheria toxoi d, acellular pertussis vaccine (BOOSTRIX) IM injection 0.5 mL (COMPLETED) 0908 (Given - Provider: Kerrie Olivo RN) 0.5 mL, intramuscular, NOW X1, 1 dose, On Sat07/31/19 at 0915, S TAT documented in this encounter Orders General Supply Count Last Ordered Date First Ordered Date CAST BOOT/SHOE 1 07/31/2019 documented in this encounter Care Teams Glass Cylinder Flanger Relationship Specialty Start Date End Date Michael Sandoval MD PCP - General 06/06/18 09/28/19 documented as of this encounter
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
--- OUTSIDE RECORDS SUMMARY | 2022-06-05 06:50 | XMS_ITS | Encounter Summary ---
:[address] [facility] Address [address] [place] [address] Care Team Providers Name Role Phone Cristin Elizabeth ENGINEERING DEPARTMENT CHAIR Primary Care Provider Unavailable Reason for Visit Reason Onset Date Comments Appointment Related 05/23/2018 Encounter Details Date Type Department Care Team Description 05/23/2018 Telephone [facility] Cristin Elizabeth, Mabel ointment Related Family Medicine - [place] ENGINEERING DEPARTMENT CHAIR [address] [place], [place] [id number] Social History Tobacco Use Types Packs/Day Years [...] Notes Telephone Encounter - Arelis Amador - 05/23/2018 1647 EDT Please review and discuss with your provider at weekly meeting. Per Psychiatry, patient declined to schedule with them: 05/20/18, called and spoke with the patient about the referral for the [place] [facility]. He was still interested, but he did change his mind after learning about no substance use while in the program. I told him that if he did change his mind to let his doctor know and they could put in a new referral forhim. documented in this encounter Plan of Treatment Not on filedocumented as of this encounter Goals Goal Patient Goal Associated Recent Patient-Stated? Author Type Problems Progress Blood Pressure Blood Pressure Hypertensive 145/96 No Vosb urg, < 130/80 disorder (06/04/2022 SHIRA Boyd 13:12 EDT) documented as of this encounter Visit Diagnoses Not on filedocumented in this encounter Care Teams Crosscutter Relationship Specialty Start Date End Date Cristin Elizabeth ENGINEERING DEPARTMENT CHAIR PCP - General 01/14/18 documented as of this encounter
--- OUTSIDE RECORDS SUMMARY | 2022-06-05 06:50 | XMS_ITS | Encounter Summary ---
:1990 Author Organization [facility] Address [address] [place] [address] Care Team Providers Name Role Phone Sixto Sandoval MD Unavailable Wolf Bethea MD MPH Primary Care Provider [phone] Reason for Visit Reason Comments Wound Check pt cut LEFT RING finger sund ay had it glued i wnet back to work and the glue came off Encounter Details Date Type Department Care Team Description 03/30/2014 Emergency [facility] Caterina Schneider PA-C [address] [place] [address] Visit for wound check (Primary Dx); Emergency Department - Emergency, MD Pedro Pablo Finger laceration Main [address] [address] Social History Tobacco Use Types Packs/Day Years [...] Sign Reading Time Taken Comments Blood Pressure 125/54 03/30/2014 1522 EDT Pulse 68 03/30/2014 1522 EDT Temperature 36.3 ??C (97.3 ??F) 03/30/2014 1522 EDT Respiratory Rate 16 03/30/2014 1522 EDT Oxygen Saturation 100% 03/30/2014 1522 EDT Inhaled Oxygen Concentration - - Weight 95.3 kg (210 lb) 03/30/2014 1522 EDT Height 177.8 cm (5' 10) 03/30/2014 1522 EDT Body Mass Index 30.13 03/30/2014 1522 EDT documented in this encounter Discharge Instructions InstructionsCaterina Schneider PA - 03/30/2014 1. Wound looks good, no signs of infection. 2. Area where glue cracked was repaired. 3. Keep the finger clean and dry. Dermabond will come off on its own in 7-10 days. Do not attempt toremove. 4. Ibuprofen for discomfort. 5. Keep covered for 48 hours then okay to remove dressing. 6. Watch for signs of infection- fevers, chills, increasing pain, redness, pus/discharge, warmth to touch or red streaking- return to the ER immediately with any worsening signs or concerns. documented in this encounter Medications at Time of Discharge Medication Sig Dispensed Refills Start Date End Date omeprazole (PRILOSEC) 20 Take 40 mg by mouth 2 0 02/04/2017 mg capsuleIndications: times daily. Reported Abdominal pain, LFTs on 02/01/2017 abnormal omeprazole (PRILOSEC) 40 Take 1 Cap by mouth 2 60 Cap 1 12/01/2013 02/01/2017 mg capsule times daily. documented as of this encounter Discharge Disposition Disposition Code Departure Means Destination Home or Self Care Car Home documented in this encounter ED Notes Zulema Cruz RN - 03/30/2014 1627 EDT Tube gauze dresg applied when dermabond dry. Caterina John PA - 03/30/2014 1608 EDT DOS: 03/30/2014 Chief Complaint Patient presents with ??? Wound Check pt cut LEFT RING finger saturday had it glued i wnet back to work and the glue came off The patient is a 24 y.o. male who presents today with Wound Check HPI Comments: The patient is a 24 year old male who was seen here 2 days ago for a laceration to theleft ring finger that was repaired with dermabond. Patient reports the dermabond has cracked but is still intact. 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 Denies redness, fevers, pus/discharge, red streaking or warmth. No pain. Reports he has kept the wound clean and dry andhas had no numbness/tingling or any other issues. The history is provided by the patient. Wound Check Review of Systems Constitutional: Negative for fever and chills. Musculoskeletal: Negative for joint swelling and arthralgias. Skin: Positive for wound. Negative for color change. Neurological: Negative for syncope and numbness. Past Medical History Diagnosis Date ??? Asthma ??? Chicken pox As a child ??? Depression Past Surgical History Procedure Laterality Date ??? Tympanostomy tube placement Allergies Allergen Reactions ??? Cats ??? Pollen Extracts History Substance Use Topics ??? Smoking status: Current Every Day Smoker -- 1.00 packs/day for 7 years Types: Cigarettes ??? Smokeless tobacco: Never Used Comment: off and on for 7 years ??? Alcohol Use: Yes Comment: occasionally Family History Problem Relation Age of Onset ??? Hypertension Father ??? Diabetes Maternal Grandmother ??? Diabetes Paternal Grandmother ??? High Cholesterol Father ??? Asthma Maternal Grandfather ??? Diabetes Maternal Grandfather ??? High Cholesterol Maternal Grandfather ??? Heart Disease Maternal Grandfather ??? Stroke Maternal Grandfather ??? Stroke Paternal Grandmother ??? Celiac Disease Neg Hx ??? Inflammatory Bowel Disease Neg Hx ??? Esophageal Cancer Neg Hx ??? Stomach Cancer Neg Hx ??? Pancreatic Cancer Neg Hx ??? Colon Cancer Neg Hx ??? Raúl's Disease Neg Hx ??? Hemochromatosis Neg Hx Vital Signs Temp: 36.3 ??C (97.3 ??F) Temp src: Tympanic Pulse: 68 Resp: 16 SpO2: 100 % BP: 125/54 mmHg Physical Exam Nursing note and vitals reviewed. Constitutional: He is oriented to person, place, and time. He appears well- developed and well-nourished. No distress. Cardiovascular: Intact distal pulses. 2+ radial pulses b/l Pulmonary/Chest: Effort normal. No respiratory distress. Neurological: He is oriented to person, place, and time. Skin: Skin is warm and dry. Well healing 4mm circular avulsion flap of the left ring finger on the volar side distal phalanx. Glue is intact and appears to have a crack in it. No signs infection including redness, pus/discharge, warmth or pain to palpation. Psychiatric: He has a normal mood and affect. His behavior is normal. Radiology orders: None Imaging Results None Procedures ED Course: A medical screening exam was performed. 24 year old male with a laceration to the left ring finger with concern of the dermabond cracking. Pt reports he wants to get back to work and is requesting the small area be reglued. Wound looks good, small crack in the Dermabond. This area repaired by reapplying a small amount of dermabond over the wound. It was allowed to dry and tube gauze was applied by the RN. Worsening signs reviewed by me with patient, advised to return to ER immediately should they occur otherwise close follow up with PCP. Disposition: Discharged The patient's pain was managed to an adequate level weighing risk vs. benefit of further medications. Upon departure from the Emergency Department, the patient's pain was 5 on a zero to ten scale. Condition at departure from the Emergency Department: Stable Discharge Prescriptions New Prescriptions No Discharge Prescriptions for this patient MDM Final diagnoses: Visit for wound check Finger laceration PCP: MD Maj Mily Ochoa was available for supervision. 03/30/2014 16:14 documented in this encounter Plan of Treatment Not on filedocumented as of this encounter Visit Diagnoses Diagnosis Visit for wound check - Primary Encounter for other specified aftercare Finger laceration Open wound of finger(s) , without mentio n of complication documented in this encounter Care Teams Supervisor Shellfish Farming Relationship Specialty Start Date End Date Sixto Sandoval MD PCP - Alternate 01/05/13 12/25/[address] [place] [phone] Wolf Bethea MD MPH PCP - General 03/19/13 06/03/14 1 [facility] [address] [place] [address] documented as of this encounter
--- OUTSIDE RECORDS SUMMARY | 2022-06-05 06:50 | XMS_ITS | Encounter Summary ---
:1990 Author Organization [facility] Address [address] [place] [address] Care Team Providers Name Role Phone Michael Sandoval MD Primary Care Provider [phone] Encounter Details Date Type Department Care Team Description 10/28/2018 Travel Social History Tobacco Use Types Packs/Day [...] on filedocumented in this encounter Care Teams [employer] Car Loader Relationship Specialty Start Date End Date Michael Sandoval MD PCP - General 06/06/18 09/28/19 documented as of this encounter
--- OUTSIDE RECORDS SUMMARY | 2022-06-05 06:50 | XMS_ITS | Encounter Summary ---
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
--- OUTSIDE RECORDS SUMMARY | 2022-06-05 06:50 | XMS_ITS | Encounter Summary ---
:[address] [facility] [place] Address [address] [place] [address] Care Team Providers Name Role Phone Cristin Elizabeth TOLL GATE KEEPER Primary Care Provider Unavailable Reason for Referral Consult (Routine) - Closed Specialty Diagnoses / Procedures Referred By Contact Refer red To Contact Psychiatry Diagnoses Severe depression (HCC-CMS) ([facility]) Cristin Elizabeth NP [facility] [address] [address] [place] [address] Phone: Fax: Referral ID Status Reason Start Date Expiration Date Visits V isits Requested Authorized [id number] Closed Specialty 02/28/2018 1 1 Services Required Question Answer Reason for Request: severe depression with suici roni ideation onsult (Routine/Next Available) - Closed Specialty Diagnoses / Procedures Referred By Contact Refer red To Contact Family Medicine Diagnoses Request for sterilization Cristin Elizabeth, TOLL GATE KEEPER Job Card, [address] [place] [address] [place] [address] [place] [phone] Phone: Fax: Referral ID Status Reason Start Date Expiration Date Visits V isits Requested Authorized [id number] Closed Specialty 02/28/2018 1 1 Services Required Question Answer Reason for Request: Vasectomy Possible procedure: Vasectomy Reason for Visit Reason Comments Depression Sterilization Patient would like to have r eferral for Vasectomy. Encounter Details Date Type Department Care Team Description 02/28/2018 Office Visit [facility] Cristin Elizabeth Sev ere depression ([facility]) (Primary Dx); Family Medicine - TOLL GATE KEEPER Request fo r sterilization; [place] [facility] [address] [place] [address] Social History Tobacco Use Types Packs/Day Years [...] Sign Reading Time Taken Comments Blood Pressure 148/82 02/28/2018 0858 EDT Pulse 84 02/28/2018 0858 EDT Temperature - - Respiratory Rate - - Oxygen Saturation - - Inhaled Oxygen Concentration - - Weight 106.1 kg (234 lb) 02/28/2018 0858 EDT with shoes Height - - Body Mass Index 34.56 01/24/2018 0818 EST documented in this encounter [...] Patient Instructions Patient InstructionsCristin Elizabeth NP - 02/28/2018 9:00 EDT Mental Health Crisis Services [facility]: [phone] documented in this encounter Ordered Prescriptions Prescription Sig Dispensed Refills Start Date End Date LORazepam (ATIVAN) 1 mg Take 1 Tab by mouth 1 Tab 0 03/13/2018 tabletIndications: Anxiety once for 1 dose. Daily Max: 1 Tab documented in this encounter Progress Notes Cristin Elizabeth NP - 02/28/2018 0900 EDT Subjective: Patient ID: Zeeshan Gonzalez Jr. is an 27 y.o. male. Chief Complaint Patient presents with ??? Depression ??? Sterilization Patient would like to have referral for Vasectomy. HPI Today feeling particularly down. Got a call from [facility] and needs to call back. Has been sleeping better. Depression is still bad. Has had some nasal congestion over the past few days which has made him nauseous. Still has SI. Says he knows that he can't as he has kids. No plan. He says he was going to see his kids today, but can not afford gas. He would like a vasectomy. Patient Active Problem List Diagnosis ??? Other [...] every 6 hours as needed for Pain. ??? sertraline (ZOLOFT) 100 mg tablet Take [...] Psychiatric/Behavioral: Positive for depression and suicidal ideas. Negative for substance abuse. The patient has insomnia. The patient is not nervous/anxious. - See HPI Objective: BP (!) 148/82 (BP Cuff Location: Right arm, Patient Position: Sitting) Pulse 84 Wt (!) 106.1 kg (234 lb) Comment: with shoes BMI 34.56 kg/m2 Physical Exam Constitutional: He is oriented [...] rash noted. He is not diaphoretic. Psychiatric: His behavior is normal. He exhibits a depressed mood. He expresses suicidal ideation. He expresses no homicidal ideation. He expresses no suicidal plans and no homicidal plans. Assessment: 1. Depression 2. Request for sterilization 3. Anxiety Plan: Diagnoses and all orders for this visit: Severe depression ([facility]) - Amb Consult/Follow Up [facility] -will continue sertraline at current dose. Patient to follow-up with me in 2 weeks. Referral to [place] for further management. Patient to call crisis today if suicidal ideations worse. Will give 1 tablet of ativan to calm anxiety today. He will also call Aissatou Aj and T today. Request for sterilization - Amb Consult/Follow Up Family Medicine Procedure-vasectomy Anxiety - LORazepam (ATIVAN) 1 mg tablet; Take 1 Tab by mouth once for 1 dose. Daily Max: 1 Tab Return in about 2 weeks (around 03/14/2018) for depression. documented in this encounter Plan of Treatment Scheduled Referrals Name Type Priority Associated Diagnoses Order S chedule AMB CONS/FOLLOW UP Outpatient Referral Routine Request For Or dered: FAMILY MEDICINE Sterilization 02/28/2018 PROCEDURE AMB CONS/FOLLOW UP Outpatient Referral Routine Severe depressi on Ordered: [facility] ([facility]) 02/28/2018 documented as of this encounter Visit Diagnoses Diagnosis Severe depression ([facility]) ([facility]) - Prim basilio Depressive disorder, not elsewhere class ified Request for sterilization Anxiety Anxiety state, unspecified documented in this encounter Care Teams Rn Rehabilitation Relationship Specialty Start Date End Date Cristin Elizabeth TOLL GATE KEEPER PCP - General 01/14/18 documented as of this encounter
--- OUTSIDE RECORDS SUMMARY | 2022-06-05 06:50 | XMS_ITS | Encounter Summary ---
:1990 Author Organization [facility] Address [address] [place] [address] Care Team Providers Name Role Phone Cristin Elizabeth CYCLE ANALYST Primary Care Provider Unavailable Reason for Visit Reason Onset Date Comments No Show 04/30/2018 Encounter Details Date Type Department Care Team Description 04/30/2018 Telephone [facility] Cristin Elizabeth, CYCLE ANALYST No Show [address] [id number] Social History Tobacco Use Types Packs/Day Years [...] Notes Telephone Encounter - Allie Rain - 04/30/2018 1630 EDT Message for patient, he no showed on 04/25/18 with Cristin Elizabeth. documented in this encounter Plan of Treatment Not on filedocumented as of this encounter Goals Goal Patient Goal Associated Recent Patient-Stated? Author Type Problems Progress Blood Pressure Blood Pressure Hypertensive 145/96 No Vosb urg, < 130/80 disorder (06/04/2022 SHIRA Boyd 13:12 EDT) documented as of this encounter Visit Diagnoses Not on filedocumented in this encounter Care Teams Lockstitcher Relationship Specialty Start Date End Date Cristin Elizabeth CYCLE ANALYST PCP - General 01/14/18 documented as of this encounter
--- OUTSIDE RECORDS SUMMARY | 2022-06-05 06:50 | XMS_ITS | Encounter Summary ---
:1990 Author Organization [facility] Address [address] [place] [address] Care Team Providers Name Role Phone Cristin Elizabeth SOLE CEMENTER Primary Care Provider Unavailable Reason for Visit Reason Onset Date Comments Appointment Related 01/28/2018 Encounter Details Date Type Department Care Team Description 01/28/2018 Telephone [facility] Cristin Elizabeth, Mabel ointment Related Family Medicine - [place] SOLE CEMENTER [address] [place], [place] [id number] Social History Tobacco Use Types Packs/Day Years [...] Notes Telephone Encounter - Arelis Amador - 01/28/2018 0933 EDT Please review and discuss with your provider at weekly meeting. Per [facility]: .Changed sched status to DO NOT SCHEDULE b/c this is a duplicate referral. Currently contacting ptfor T Social Work per 01/01 referral. documented in this encounter Plan of Treatment Not on filedocumented as of this encounter Visit Diagnoses Not on filedocumented in this encounter Care Teams Keymodule Assembly Supervisor Relationship Specialty Start Date End Date Cristin Elizabeth SOLE CEMENTER PCP - General 01/14/18 documented as of this encounter
--- OUTSIDE RECORDS SUMMARY | 2022-06-05 06:50 | XMS_ITS | Encounter Summary ---
:1990 Author Organization [facility] Address [address] [place] [address] Care Team Providers Name Role Phone Cristin Elizabeth NP Primary Care Provider Unavailable Reason for Visit Reason Onset Date Comments Coordination Of Care 04/25/2018 Encounter Details Date Type Department Care Team Description 04/25/2018 Telephone [facility] Candie Stiles, RN Coordination Of Care Medicine - [address] [address] Social History Tobacco Use Types [...] this encounter Miscellaneous Notes Telephone Encounter - Candie Stiles, RN - 04/25/2018 0842 EDT Left message for patient to call clinic. Care and concern call as appointment was missed. documented in this encounter Plan of Treatment Not on filedocumented as of this encounter Goals Goal Patient Goal Associated Recent Patient-Stated? Author Type Problems Progress Blood Pressure Blood Pressure Hypertensive 145/96 No Vosb urg, < 130/80 disorder (06/04/2022 SHIRA Boyd 13:12 EDT) documented as of this encounter Visit Diagnoses Not on filedocumented in this encounter Care Teams Umbrella Cutter Relationship Specialty Start Date End Date Cristin Elizabeth BLENDER/BRAZE APPLICATOR PCP - General 01/14/18 documented as of this encounter
--- OUTSIDE RECORDS SUMMARY | 2022-06-05 06:50 | XMS_ITS | Encounter Summary ---
:1990 Author Organization [facility] Address [address] [place] [address] Care Team Providers Name Role Phone Michael Sandoval MD Primary Care Provider [phone] Reason for Visit Reason Comments Nausea Pt states has awoken from sl eep and started vomiting every morning for 1 year. Encounter Details Date Type Department Care Team Description 07/16/2018 Emergency [facility] Tristan Garcia, PA-C [address] [facility], [address] [place] [id number] Nausea and vomiting, Emergency Department Emergency, MD Pedro Pablo intractability of - [facility] vomiting not specified, [address] [place] [address] [place] [address] type (Primary Dx) [phone] Social History Tobacco Use Types Packs/Day Years [...] Sign Reading Time Taken Comments Blood Pressure 125/71 07/16/2018 1125 EDT Pulse 67 07/16/2018 1125 EDT Temperature 36.5 ??C (97.7 ??F) 07/16/2018 1125 EDT Respiratory Rate 18 07/16/2018 1125 EDT Oxygen Saturation 99% 07/16/2018 1125 EDT Inhaled Oxygen Concentration - - Weight 105 kg (231 lb 7.7 oz) 07/16/2018 1125 EDT Height 180 cm (5' 10.87) 07/16/2018 1125 EDT Body Mass Index 32.41 07/16/2018 1125 EDT documented in this encounter Functional Status [...] as of this encounter Discharge Diagnoses Diagnosis R11.2 Nausea with vomiting, unspecified- R11.2[ICD-10-CM] F12.90 Cannabis use, unspecified, uncomp licated-F12.90[ICD-10-CM] E66.9 Obesity, unspecified-E66.9[ICD-10- CM] F32.9 Major depressive disorder, single episode, unspecified-F32.9[ICD-10-CM] J45.909 Unspecified asthma, uncomplicate d-J45.909[ICD-10-CM] Z79.899 Other [facility] (current) drug t herapy-Z79.899[ICD-10-CM] F17.210 Nicotine dependence, cigarettes, uncomplicated-F17.210[ICD-10-CM] documented in this encounter Discharge Instructions InstructionsTristan Garcia PA - 07/16/2018 Follow-up with your doctor as soon as possible for reevaluation for persistent morning nausea and vomiting. Try using the Reglan either before bed or first thing in the morning to see if this helps with nausea vomiting. He may also start on omeprazole 20 mg to see if this decreases stomach acid and pain. If symptoms continue would recommend a gastroenterology follow-up. He may also consider cutting back on marijuana smoking and see if this improves the nausea and vomiting AttachmentsThe following attachments cannot be sent through Care Everywhere. NAUSEA AND VOMITING ([place])documented in this encounter Medications at Time of [...] (PRILOSEC) 20 Take 1 Cap by mouth 20 Cap 0 10/28/2018 mg capsule every morning. sertraline (ZOLOFT) 100 mg Take 2 Tabs by 60 Tab 0 03/1407/27/2019 tabletIndications: Severe mouth daily. episode of recurrent major depressive disorder, without psychotic features (HCC) documented as of this encounter Ordered Prescriptions Prescription Sig Dispensed Refills Start Date End Date omeprazole (PRILOSEC) 20 mg Take 1 Cap by 20 Cap 0 07/1610/28/2018 capsule mouth every morning. metoclopramide HCl (REGLAN) Take 1 Tab by 25 Tab 0 07/1607/27/2019 10 mg tablet mouth 4 times daily. documented in this encounter Discharge Disposition Disposition Code Departure Means Destination Home or Self Care Walk-out Home documented in this encounter ED Notes Lam Reddy RN - 07/16/2018 1236 EDT Pt discharged with instructions and follow up information. All questions answered by provider and this nurse. Pt ambulatory out of the department with steady gait. Tristan Perez PA - 07/16/2018 1230 EDT DOS: 07/16/2018 Chief Complaint Patient presents with ??? Nausea Pt states has awoken from sleep and started vomiting every morning for 1 year. HPI The patient is a 28 y.o. male who presents today with Nausea (Pt states has awoken from sleep and started vomiting every morning for 1 year. ) HPI Comments: 28-year-old male is here for nausea and vomiting. He states that he has been having episodes typically in the morning where he feels nauseous and occasionally vomits. Currently during evaluation he has no symptoms. He does admit to being moderately anxious he is also a regular marijuana smoker. During my evaluation patient is completely asymptomatic. No fevers chills no weight loss or weight gain. The history is provided by the patient. Nausea Associated symptoms: no abdominal pain, no arthralgias, no chills, no fever, no headaches and no sore throat Review of Systems Review of Systems Constitutional: Negative for chills and fever. HENT: Negative for congestion, sore throat and trouble swallowing. Eyes: Negative. Respiratory: Negative for chest tightness and shortness of breath. Cardiovascular: Negative. Negative for chest pain, palpitations and leg swelling. Gastrointestinal: Positive for nausea and vomiting. Negative for abdominal distention, abdominal pain, anal bleeding, constipation and rectal pain. Endocrine: Negative. Genitourinary: Negative. Negative for dysuria and flank pain. Musculoskeletal: Negative. Negative for arthralgias. Skin: Negative. Negative for color change and rash. Allergic/Immunologic: Negative. Negative for immunocompromised state. Neurological: Negative. Negative for dizziness and headaches. Hematological: Negative. Negative for adenopathy. Does not bruise/bleed easily. Psychiatric/Behavioral: Negative. Negative for confusion. All other systems reviewed and are negative. The patient's past medical, family and social history was reviewed and updated as needed. Allergies Allergen Reactions ??? Cats ??? Pollen Extracts Vital Signs Temp: 36.5 ??C (97.7 ??F) Pulse: 67 Resp: 18 SpO2: 99 % BP: 125/71 BP Device: BP Machine Patient Position: Sitting BP Cuff Location: Left arm Physical Exam Constitutional: He appears well-developed and well-nourished. Obese male in no acute distress HENT: Head: Normocephalic and atraumatic. Right Ear: External ear normal. Left Ear: External ear normal. Nose: Nose normal. Eyes: Pupils are equal, round, and reactive to light. Right eye exhibits no discharge. Left eye exhibits no discharge. Neck: Normal range of motion. Neck supple. No tracheal deviation present. Cardiovascular: Normal rate, regular rhythm and normal heart sounds. Pulmonary/Chest: Effort normal and breath sounds normal. No respiratory distress. Abdominal: Soft. He exhibits no distension and no mass. There is no tenderness. There is no rebound and no guarding. Musculoskeletal: Normal range of motion. Neurological: He is alert. He has normal strength. He is not disoriented. No sensory deficit. Skin: Skin is warm and dry. No rash noted. Psychiatric: He has a normal mood and affect. Nursing note and vitals reviewed. RESULTS EKG orders: None Radiology orders: None ED Lab Results Labs Reviewed - No data to display Relevant Data Procedures ED COURSE A medical screening exam was performed. Given that the patient is completely asymptomatic at this time and I do not find any other clues to why he is nauseous except for the possibility of anxiety and regular marijuana smoking. I did prescribe him Reglan to use as needed to see if this helps control his nausea and recommended PCP follow-up as soon as possible if symptoms continue. ASSESSMENT AND PLAN Final diagnoses: Nausea and vomiting, intractability of vomiting not specified, unspecified vomiting type ED Current Prescriptions Medication Dispense Auth. Provider metoclopramide HCl (REGLAN) 10 mg tablet 25 Tab Tristan Garcia PA omeprazole (PRILOSEC) 20 mg capsule 20 Cap Tristan Garcia PA DISPOSITION: Discharged The patient's pain was managed [...] departure from the Emergency Department: Good PCP: Michael Renee was available for supervision. 07/23/2018 9:53 No flowsheet data found. documented in this encounter Plan of Treatment Not on filedocumented as of this encounter Goals Goal Patient Goal Associated Recent Patient-Stated? Author Type Problems Progress Blood Pressure Blood Pressure Hypertensive 145/96 No Vosb urg, < 130/80 disorder (06/04/2022 SHIRA Boyd 13:12 EDT) documented as of this encounter Visit Diagnoses Diagnosis Nausea and vomiting, intractability of v omiting not specified, unspecified vomiting type - Primary documented in this encounter Care Teams Accounts Collector Relationship Specialty Start Date End Date Michael Sandoval MD PCP - General 06/06/18 09/28/19 documented as of this encounter
--- OUTSIDE RECORDS SUMMARY | 2022-06-05 06:50 | XMS_ITS | Encounter Summary ---
:1990 Author Organization [facility] Address [address] [place] [address] Care Team Providers Name Role Phone Cristin Elizabeth NP Primary Care Provider Unavailable Reason for Visit Reason Comments Stress Encounter Details Date Type Department Care Team Description 04/04/2018 Office Visit [facility] Jean Marie Aissatou, PTSD ( post-traumatic Family Medicine - SENIOR VICE PRESIDENT & GENERAL COUNSEL stress disorder) [address] (Primary Dx) [address] [place] [phone] Social History Tobacco Use Types Packs/Day Years [...] disorder documented in this encounter Care Teams Facilities Maintenance Supervisor Relationship Specialty Start Date End Date Cristin Elizabeth COMPRESSOR SERVICE TECHNICIAN PCP - General 01/14/18 documented as of this encounter
--- OUTSIDE RECORDS SUMMARY | 2022-06-05 06:50 | XMS_ITS | Encounter Summary ---
:1990 Author Organization [facility] Address [address] [place] [address] Care Team Providers Name Role Phone Cristin Elizabeth NP Primary Care Provider Unavailable Reason for Visit Reason Comments Stress Encounter Details Date Type Department Care Team Description 04/18/2018 Office Visit [facility] Jean Marie Aissatou, PTSD ( post-traumatic stress disorder) (Primary Dx); Family Medicine - [facility] Severe episode of recurrent major depres sive disorder, without psychotic features ([facility]) [address] [phone] Social History Tobacco Use Types Packs/Day Years [...] stress disorder) - Primary Posttraumatic stress disorder Severe episode of recurrent major depres sive disorder, without psychotic features (HCC) documented in this encounter Care Teams Counter Supervisor Relationship Specialty Start Date End Date Cristin Elizabeth DIRECTOR OF FUNDRAISING PCP - General 01/14/18 documented as of this encounter
--- OUTSIDE RECORDS SUMMARY | 2022-06-05 06:50 | XMS_ITS | Encounter Summary ---
:1990 Author Organization [facility] Address [address] [place] [address] Care Team Providers Name Role Phone Cristin Elizabeth DIRECTOR OF SOLUTIONS ARCHITECTURE Primary Care Provider Unavailable Reason for Visit Reason Comments Depression Foot Pain Left foot. Stepped on a nail ten months ago. Encounter Details Date Type Department Care Team Description 02/14/2018 Office Visit [facility] Cristin Elizabeth, Sev ere episode of recurrent major depressive disorder, without psychotic features (CMS-HCC) (HCC- CMS) (Primary Dx); Family Medicine - DIRECTOR OF SOLUTIONS ARCHITECTURE [facility] of [address] [address] Social History Tobacco Use Types Packs/Day Years [...] Sign Reading Time Taken Comments Blood Pressure 122/76 02/14/2018 0842 EDT Pulse 80 02/14/2018 0842 EDT Temperature - - Respiratory Rate - - Oxygen Saturation - - Inhaled Oxygen Concentration - - Weight 106.1 kg (234 lb) 02/14/2018 0842 EDT with shoes Height - - Body [...] Patient Instructions Patient InstructionsCristin Elizabeth NP - 02/14/2018 8:45 EDT Mental Health Crisis Services [facility]: [phone] documented in this encounter Ordered Prescriptions Prescription Sig Dispensed Refills Start Date End Date sertraline (ZOLOFT) 100 mg Take 1.5 Tabs by 45 Tab 0 03/14/2018 tabletIndications: Severe mouth daily. episode of recurrent major depressive disorder, without psychotic features (HCC) documented in this encounter Progress Notes Cristin Elizabeth NP - 02/14/2018 0845 EDT Images from the original note were not included. Subjective: Patient ID: Zeeshan Gonzalez Jr. is an 27 y.o. male. Chief Complaint Patient presents with ??? Depression ??? Foot Pain Left foot. Stepped on a nail ten months ago. HPI Depression Zeeshan has been drinking socially, but not feeling depressed. He still has suicidal thoughts, but no plan. He denies homicidal thoughts. He is not sleeping well. He does have a son, but he is sleeping through the night. He does check on him to see if he is breathing during the night. He is taking the zoloft at night. Foot Pain Zeeshan stepped on a nail last April. He says it is starting to hurt again. He says in the middle he has pulled out stuff. He says it is not erythematous or swollen. Patient Active Problem List Diagnosis ??? Other [...] suicidal ideas. - See HPI Objective: BP 122/76 (BP Cuff Location: Right arm, Patient Position: Sitting) Pulse 80 Wt (!) 106.1 kg (234lb) Comment: with shoes BMI 34.56 kg/m2 Physical [...] no tenderness. Musculoskeletal: Normal range of motion. Feet: Neurological: He is alert and oriented to person, place, and time. Skin: Skin is warm and dry. No rash noted. He is not diaphoretic. Psychiatric: He has a normal mood and affect. His behavior is normal. Judgment and thought content normal. Assessment: 1. MDD 2. Callus of foot Plan: Diagnoses and all orders for this visit: Severe episode of recurrent major depressive disorder, without psychotic features (CMS-HCC) - sertraline (ZOLOFT) 100 mg tablet; Take 1.5 Tabs by mouth daily. -increase to 150mg daily, may need 200mg/day. Will follow-up in 2 weeks. Continue therapy with Aissatou. Will check on status of CHT referral. Callus of foot -will monitor, no intervention at this time. Return in about 5 weeks (around 03/21/2018) for depression. documented in this encounter Plan of Treatment Not on filedocumented as of this encounter Visit Diagnoses Diagnosis Severe episode of recurrent major depres sive disorder, without psychotic features (HCC) - Primary Callus of foot Corns and callosities documented in this encounter Discontinued Medications Medication Sig Discontinue Reason Start Date End Date sertraline (ZOLOFT) 100 Take 1 Tab by mouth Reorder 01/24/2018 02/14/2018 mg tabletIndications: daily. Severe episode of recurrent major depressive disorder, without psychotic features (HCC) documented as of this encounter Care Teams Commercial Hvac Service Technician Relationship Specialty Start Date End Date Cristin Elizabeth NP PCP - General 01/14/18 documented as of this encounter
--- OUTSIDE RECORDS SUMMARY | 2022-06-05 06:50 | XMS_ITS | Encounter Summary ---
:1990 Author Organization [facility] Address [address] [place] [address] Care Team Providers Name Role Phone None, Provider Primary Care Provider Unavailable Reason for Visit Reason Comments Back Pain Atraumatic lower back pain f or 2 days. Ambulatory into triage. Denies numbness, bladder/bowel isue s. Encounter Details Date Type Department Care Team Description 01/27/2017 [facility] Lauren Carter P A-C [address] [facility], Level [address] [place] [address] Lumbar strain, initial Emergency Department Emergency, MD Pedro Pablo encounter (Primary Dx) - [address] [address] Social History Tobacco Use Types [...] Sign Reading Time Taken Comments Blood Pressure 138/93 01/27/20172136 EDT Pulse 100 01/27/20172136 EDT Temperature 37.2 ??C (99 ??F) 01/27/20172019 EDT Respiratory Rate 16 01/27/20177 EDT Oxygen Saturation 98% 01/27/20172136 EDT Inhaled Oxygen Concentration - - Weight 102.1 kg (225 lb) 01/27/20172019 EDT Height 175.3 cm (5' 9) 01/27/20172019 EDT Body Mass Index 33.23 01/27/20172019 EDT documented in this encounter Discharge Diagnoses Diagnosis S39.012A Strain of muscle, fascia and te ndon of lower back, initial encounter-S39.012A[ICD-10-CM] X58.XXXA Exposure to other specified fac tors, initial encounter-X58.XXXA[ICD-10-CM] F17.210 Nicotine dependence, cigarettes, uncomplicated-F17.210[ICD-10-CM] J45.909 Unspecified asthma, uncomplicate d-J45.909[ICD-10-CM] documented in this encounter Discharge Instructions Lauren Bae PA - 01/27/2017 Ice or heat 20 mins 3-4 times per day over the next 24-48 hours Ibuprofen 600 mg every 6 hours for pain Tylenol 650 mg every 6 hours for pain Robaxin as prescribed Activity as tolerated Follow up with your primary care this week Return for increased pain, weakness, change in bowel or bladder habits AttachmentsThe following attachments cannot be sent through Care Everywhere.BACK PAIN (SINHALA)documented in this encounter Medications at Time of Discharge Medication Sig Dispensed Refills Start Date End Date methocarbamol (ROBAXIN) Take 1 Tab by mouth 20 Tab 0 10/201701/28/2017 750 mg tablet every 4 hours. omeprazole (PRILOSEC) 20 Take 40 mg by mouth 0 02/04/2017 mg capsuleIndications: 2 times daily. Abdominal pain, LFTs Reported on abnormal 02/01/2017 omeprazole (PRILOSEC) 40 Take 1 Cap by mouth 60 Cap 1 02/01/2017 mg capsule 2 times daily. documented as of this encounter Ordered Prescriptions Prescription Sig Dispensed Refills Start Date End Date methocarbamol (ROBAXIN) 750 Take 1 Tab by 20 Tab 0 01/2701/28/2017 mg tablet mouth every 4 hours. documented in this encounter Discharge Disposition Disposition Code Departure Means Destination Home or Self Care Walk-out Home documented in this encounter ED Notes Larow, Lauren S, PA - 01/27/2017 2111 EDT DOS: 01/27/2017 Chief Complaint Patient presents with ??? Back Pain Atraumatic lower back pain for 2 days. Ambulatory into triage. Denies numbness, bladder/bowel isues. HPI HPI Comments: I, Joey Mariana, am scribing for Lauren Carter PA while he/she is personally performing the service. Joey Peña 01/27/2017 21:11 Zeeshan Gonzalez Jr. is a 26 y.o. male with a history of obesity, hypertension, depression, abdominal pain. He presents with 2 days of progressively worsening right sided lower back pain which radiates toboth of his hips, but not the back of his legs. He states the pain increases with walking or standing, especially after he has been seated for an extensive amount of time. Patient denies any trauma or fall causing the pain. He denies any associated weakness. 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 Patient notes that the first time he had a similar pain was a year ago when he threw my back out. He states he tried a muscle relaxant his grandmother gave him at 1630. Patient reports that he has smoked marijuana for pain, and bought a tens unit yesterday which he has not tried using yet. He denies any fever or chills, denies medications, or allergies. The history is provided by the patient and medical records. Back Pain Associated symptoms: no chest pain, no dysuria, no fever, no numbness and no weakness Review of Systems Review of Systems Constitutional: Negative for chills and fever. Respiratory: Negative for shortness of breath. Cardiovascular: Negative for chest pain. Gastrointestinal: Negative for vomiting. Genitourinary: Negative for dysuria. Musculoskeletal: Positive for back pain and gait problem. Negative for neck pain. Skin: Negative for wound. Allergic/Immunologic: Negative for environmental allergies and food allergies. Neurological: Negative for syncope, weakness and numbness. Psychiatric/Behavioral: Negative for agitation. The patient's past medical, family and social history was reviewed and updated as needed. Allergies Allergen Reactions ??? Cats ??? Pollen Extracts Vital Signs Vitals Reassessment?: Yes Temp: 37.2 ??C (99 ??F) Temp src: Tympanic Pulse: 100 Resp: 16 SpO2: 98 % BP: (!) 138/93 BP MAP: 101 mm Hg BP Device: BP Machine Patient Position: Standing BP Cuff Location: Left arm O2 Device: None (Room air) Physical Exam Constitutional: He is oriented to person, place, and time. He appears well- developed and well-nourished. HENT: Head: Normocephalic and atraumatic. Right Ear: External ear normal. Left Ear: External ear normal. Mouth/Throat: Oropharynx is clear and moist. Eyes: Conjunctivae are normal. Pupils are equal, round, and reactive to light. Neck: Normal range of motion. No C-spine tenderness. Cardiovascular: Normal rate, regular rhythm and normal heart sounds. No murmur heard. Pulmonary/Chest: Effort normal and breath sounds normal. No respiratory distress. He has no wheezes.He has no rales. Abdominal: Soft. Bowel sounds are normal. There is no tenderness. Musculoskeletal: He exhibits tenderness. Right paralumbar tenderness. No T spine tenderness. Pain with resisted right hip flexion Increased pain with ambulation. C spine no pain L/S spine no midline tenderness Neurological: He is alert and oriented to person, place, and time. Reflexes to the lower extremities 2+ bilaterally. Sensation intact. Skin: Skin is warm and dry. Psychiatric: He has a normal mood and affect. Nursing note and vitals reviewed. RESULTS EKG orders: None Radiology orders: None ED Lab Results Labs Reviewed - No data to display Relevant Data Procedures ED COURSE A medical screening exam was performed. 26 year old male presents with 2 days of worsening right sided lower back pain. On exam, right sided para lumbar tenderness, pain with right hip flexion, and increased pain with ambulation. Patient has 2+ reflexes to the bilateral lower extremities, and full sensation intact. Patient was given 600mg PO motrin by triage PA. 01/27/2017 21:30 patient given 750mg PO robaxin. Patient to be discharged home with prescription for robaxin. Instructed to not return to work this evening due to his increased pain. Prior to discharge my usual and customary return precautions were reviewed with the patient and/or family. This included follow-up instructions and reasons to return tot Emergency Department if condition worsens, does not improve as expected, or other new concerns arise. ASSESSMENT AND PLAN Final diagnoses: Lumbar strain, initial encounter DISPOSITION: Discharged The patient's pain was managed to an adequate level weighing risk vs. benefit of further medications. Upon departure from the Emergency Department, the patient's pain was 8 on a zero to ten scale. Condition at departure from the Emergency Department: Improved PCP: Provider None MDM Number of Diagnoses or Management Options Lumbar strain, initial encounter: Diagnosis management comments: Lumbar strain, spasm, pain, disc herniation 3 Amount and/or Complexity of Data Reviewed Review and summarize past medical records: yes Pranav Wyman 01/28/2017 4:47 No flowsheet data found. This documentation is recorded by Joey Peña acting as Scribe under the direction and presence ofLauren Carter PA. Lauren Carter PA: I personally performed the services recorded by the scribe in my presence. I confirm the scribe's documentation has been reviewed by me to accurately and completely record my work, treatment, procedures, and medical decision making. Dr. Andres was available for supervision. Lam Varma RN - 01/27/20172054 EDT Pt reports 8/10 low back pain that started while at rest yesterday, Pain radiates down both legs andhas caused numbness and tingling as well as weakness. Pt denies bowel or bladder changes. Pt standing in room reports that he can't find a comfortable position. aylin Simmons RN - 01/27/20172019 EDT Chief Complaint Patient presents with ??? Back Pain Atraumatic lower back pain for 2 days. Ambulatory into triage. Denies numbness, bladder/bowel isues. documented in this encounter Plan of Treatment Not on filedocumented as of this encounter Visit Diagnoses Diagnosis Lumbar strain, initial encounter - Prima ry documented in this encounter Administered Medications Inactive Administered Medications - up to 3 most recent administrations Medication Order MAR Action Action Date Dose Rate Site ibuprofen (MOTRIN) tablet 600 mg Given 01/27/2017 20:55 EDT 600 mg 600 mg, oral, NOW X1, 1 dose, On 01/27/17 at 2044, STAT methocarbamol (ROBAXIN) tablet 750 mg Given 01/27/2017 21:37 EDT 750 mg 750 mg, oral, NOW X1, 1 dose, On 01/27/17 at 2129, STAT documented in this encounter Active and Recently Administered Medications Due to Daylight Saving Time, this section may contain times in both EST and EDT. Scheduled Medication Order 01/25/2017 01/26/2017 01/27/2017 ibuprofen (MOTRIN) tablet 600 mg (COMPLETED) 2054 (Given - Provider: Lam Reddy RN) 600 mg, oral, NOW X1, 1 dose, 01/27/17 at 2044, STAT methocarbamol (ROBAXIN) tablet 750 mg (COMPLETED) 2136 (Given - Provider: Lam Reddy RN) 750 mg, oral, NOW X1, 1 dose, 01/27/17 at 2130, STAT documented in this encounter Care Teams Deputy Attorney General Relationship Specialty Start Date End Date None, Provider PCP - General 01/27/17 02/05/17 documented as of this encounter
--- OUTSIDE RECORDS SUMMARY | 2022-06-05 06:50 | XMS_ITS | Encounter Summary ---
:1990 Author Organization [facility] Address [address] [place] [address] Care Team Providers Name Role Phone Sixto Sandoval MD Unavailable Rigo Leonardo MD Primary Care Provider Reason for Visit Reason Onset Date Comments Appointment Related 02/21/2015 patient outreach/ast hma registry Encounter Details Date Type Department Care Team Description 02/21/2015 Telephone [facility] Shelia Anna RN Appoi ntment Related Adult Primary Care - (patien t outreach/asthma [place] registry) [address] [place], [place] [address] Social History Tobacco Use Types Packs/Day Years [...] Telephone Encounter - Shelia Gonzalez LPN - 02/21/2015 1646 EDT Phone call attempt made in regards to the asthma registry. Unable to reach patient due to a change in phone number or disconnection. Asthma letter will be sent to the patient. documented in this encounter Plan of Treatment Not on filedocumented as of this encounter Visit Diagnoses Not on filedocumented in this encounter Care Teams Talent Partner Relationship Specialty Start Date End Date Sixto Sandoval MD PCP - Alternate 01/05/13 12/25/15 [address] [place] [id number] Rigo Leonardo MD PCP - General 06/04/14 09/12/15 1 [facility] [address] [place] [phone] documented as of this encounter
--- OUTSIDE RECORDS SUMMARY | 2022-06-05 06:50 | XMS_ITS | Encounter Summary ---
:1990 Author Organization [facility] Address [address] [place] [address] Care Team Providers Name Role Phone Michael Sandoval MD Primary Care Provider [phone] Reason for Visit Reason Onset Date Comments Patient Outreach 03/11/2019 Encounter Details Date Type Department Care Team Description 03/11/2019 Telephone [facility] Michael Sandoval, Patient Outreach [facility] [address] [place] [id number] [place], [place] [address] [place] [phone] (Wo rk) Social History Tobacco Use Types [...] this encounter Miscellaneous Notes Telephone Encounter - PrasannahumaCathy conway - 03/11/2019 [address] made with Dr Sandoval elephone Encounter - ClaudiaClyde - 03/11/2019 1442 EDT Left message for Shean to call the office. Calling to set up an appointment when it is convenient for the patient. Our records show the patientis overdue or due soon for health care services. If you have not set up a physical exam, this would be a great opportunity. Clyde Taylor 03/11/2019 14:42 documented in this encounter Plan of Treatment Not on filedocumented as of this encounter Goals Goal Patient Goal Associated Recent Patient-Stated? Author Type Problems Progress Blood Pressure Blood Pressure Hypertensive 145/96 No Vosb urg, < 130/80 disorder (06/04/2022 SHIRA Boyd 13:12 EDT) documented as of this encounter Visit Diagnoses Not on filedocumented in this encounter Care Teams Hydrogen Power Plant Engineer Relationship Specialty Start Date End Date Michael Sandoval MD PCP - General 06/06/18 09/28/19 documented as of this encounter
--- OUTSIDE RECORDS SUMMARY | 2022-06-05 06:50 | XMS_ITS | Encounter Summary ---
:1990 Author Organization [facility] Address [address] [place] [address] Care Team Providers Name Role Phone Sixto Sandoval MD Unavailable Wolf Bethea MD MPH Primary Care Provider [phone] Reason for Visit Reason Onset Date Comments Medications Refill 12/01/2013 Encounter Details Date Type Department Care Team Description 12/01/2013 Refill [facility] RN [address] [place], [place] [id number] Social History Tobacco Use Types Packs/Day Years [...] 10:43 EDT documented as of this encounter Ordered Prescriptions Prescription Sig Dispensed Refills Start Date End Date omeprazole (PRILOSEC) 40 Take 1 Cap by mouth 60 Cap 1 02/01/2017 mg capsule 2 times daily. documented in this encounter Plan of Treatment Not on filedocumented as of this encounter Visit Diagnoses Not on filedocumented in this encounter Care Teams Coal Pulverizing Operator Relationship Specialty Start Date End Date Sixto Sandoval MD PCP - Alternate 01/05/13 12/25/15 [address] [place] [address] Wolf Bethea MD MPH PCP - General 03/19/13 06/03/14 1 [facility] [address] [place] [address] documented as of this encounter
--- OUTSIDE RECORDS SUMMARY | 2022-06-05 06:51 | XMS_ITS | Encounter Summary ---
:1990 Author Organization [facility] Address [address] [place] [address] Care Team Providers Name Role Phone Sixto Sandoval MD Unavailable Wolf Bethea MD MPH Primary Care Provider [phone] Reason for Visit Reason Comments Pharyngitis x 1 wk Encounter Details Date Type Department Care Team Description 08/21/2013 Office Visit [facility] Job Reardon Pharyngit is (Primary Adult Primary Care - Loly Rodriguez) [address] [address] [place] [address] (Wo rk) Social History Tobacco Use Types [...] Reading Time Taken Comments Blood Pressure 128/78 08/21/2013 1058 EDT Pulse 84 08/21/2013 1058 EDT Temperature 36.1 ??C (97 ??F) 08/21/2013 1058 EDT Respiratory Rate 16 08/21/2013 1058 EDT Oxygen Saturation - - Inhaled Oxygen Concentration - - Weight 96.6 kg (213 lb) 08/21/2013 1058 EDT Height 172.7 cm (5' 8) 08/21/2013 1058 EDT per patient Body Mass Index 32.39 08/21/2013 1058 EDT documented in this encounter Progress Notes Job Reardon III, MD - 08/21/2013 1155 EDT CHIEF COMPLAINT: Sore throat. HISTORY OF PRESENT ILLNESS: The patient with sore throat for the past week. States that his girlfriend also had a sore throat. 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 Feels that his symptoms are not improving with time. He is using Aleve for pain control. REVIEW OF SYSTEMS: No fevers or chills. PHYSICAL EXAM: Constitutional: Vital signs as above. General exam: Pleasant in no acute distress. ENT: Mucous membranes moist, oropharynx pink, no cervical lymphadenopathy. Cardiovascular: Regular rate and rhythm. Respiratory: Lungs clear to auscultation bilaterally. ASSESSMENT: Pharyngitis. Rapid Strep in the office negative, will send for culture. PLAN: 1. Continue Aleve b.i.d. p.r.n. for pain control. 2. Return if symptoms fail to improve or worsen. documented in this encounter Plan of Treatment Not on filedocumented as of this encounter Procedures Procedure Name Priority Date/Time Associated Diagnosis Comme nts POCT RAPID STREP Routine 08/21/2013 11:35 Pharyngitis Results for this SCREEN EDT procedure are i n the results section. GROUP A STREP Routine 08/21/2013 11:22 Pharyngitis Results fo r this CULTURE EDT procedure are i n the results section. documented in this encounter Results POCT RAPID STREP SCREEN (08/21/2013 11:35 EDT) Pathologist Sig nature Rapid Strep Test, POC Negative Negative POINT OF CARE Background Clear? Yes POINT OF CARE Control Line Present Yes POINT OF CARE Rgt A + Rgt B= Yellow: Yes POINT OF CARE Culture Sent to Lab? Yes POINT OF CARE Specimen Other (qualifier value) Performing Organization Address City/State/ZIP Code Phon [facility] Number [facility] POINT OF CARE PHARYNGITIS CULTURE (08/21/2013 11:22 EDT) Specimen Throat [facility] Description LAB Result No group A beta [facility] streptococci LAB isolated. Usual eunice-pharyngeal gatito. Report Status 08/23/2013 Final [facility] Specimen Other (qualifier value) - Throat Performing Organization Address City/State/ZIP Code Phon e Number [facility] [address] [place] [address] SERVICES [facility] [address] [place] [address] documented in this encounter Visit Diagnoses Diagnosis Pharyngitis - Primary Acute pharyngitis documented in this encounter Discontinued Medications Medication Sig Discontinue Reason Start Date End Date ASPIRIN/SOD BICARB/CITRIC Take by mouth. Therapy completed 08/21/2013 ACID (MIRIAM-SELTZER ORAL) omeprazole (PRILOSEC) 20 Take 20 mg by Therapy completed 08/21/2013 mg capsule mouth 2 times daily. ondansetron (ZOFRAN-ODT) 4 Take 1 Tab by Therapy completed 02/27/20 13 08/21/2013 mg disintegrating tablet mouth every 8 hours as needed for Nausea. documented as of this encounter Care Teams Servicing Rep Relationship Specialty Start Date End Date Sixto Sandoval MD PCP - Alternate 01/05/13 12/25/15 [address] [place] [address] Wolf Bethea MD MPH PCP - General 03/19/13 06/03/14 1 [facility] [address] [place] [address] documented as of this encounter
--- OUTSIDE RECORDS SUMMARY | 2022-06-05 06:51 | XMS_ITS | Encounter Summary ---
:1990 Author Organization [facility] Address [address] [place] [address] Care Team Providers Name Role Phone Ilan Kelly MD Primary Care Provider Reason for Visit Reason Comments Shortness of Breath Pt reports increased SOB x 2 days, with productive cough and subjective fevers. Pt states he used nebulizer and inhaler this am w/o relief. Pt is current ly on zithromax x3 days for URI. Cough Pt reports yellow sputum, pt reports he has also had chest tightness since last night Encounter Details Date Type Department Care Team Description 09/01/2012 Emergency [facility] Marina Hutchinson PA-C [address] [address] Bronchitis; Emergency Department David Cole MD [address] [address] Pleuritic chest pain; - [facility], MD Pedro Pablo Gastritis [address] [place] [address] Social History Tobacco Use Types [...] Sign Reading Time Taken Comments Blood Pressure 147/87 09/01/2012817 EDT Pulse 101 09/01/2012817 EDT Temperature 36.8 ??C (98.2 ??F) 09/01/2012817 EDT Respiratory Rate 22 09/01/2012817 EDT Oxygen Saturation 99% 09/01/2012817 EDT Inhaled Oxygen Concentration - - Weight 104.3 kg (230 lb) 09/01/2012817 EDT Height 175.3 cm (5' 9) 09/01/2012817 EDT Body Mass Index 33.97 09/01/2012817 EDT documented in this encounter Discharge Instructions InstructionsWeDavid nj MD - 09/01/2012 1. Drink plenty of fluids. Initially restrict diet to clear liquids, then add solids as tolerated. 2. Albuterol 2 - 4 puffs every 4 hours as needed for chest tightness/difficutly breathing. Return tothe ED for difficulty breathing not responding to or requiring more of this medication. 3. Acetaminophen 1000mg every 4 hours (up to 4 times a day) and/or ibuprofen 600mg every 6 hours as needed. 4. Prednisone 40mg once a day starting tomorrow as needed for persistent pain,rash, or itching. Do not take ibuprofen-like medications (NSAIDs) while taking this mediation. IF you have diabetes, check your blood sugars frequently while taking prednisone. 5. Reglan 10mg every 6 hours as needed for nausea. 6. Zantac 150mg twice a day or 300mg at bedtime. Return to the Emergency Department (ED) if your condition worsens, does not improve as expected, or for any other concerns. Specifically return if you have new or uncontrolled pain, worsening fever, difficulty breathing, vomiting, or are unable to drink fluids. AttachmentsThe following attachments cannot be sent through Care Everywhere. BRONCHITIS: AFTER YOUR VISIT (ARGENTINE)documented in this encounter Medications at Time of Discharge Medication Sig Dispensed Refills Start Date End Date albuterol (PROVENTIL HFA, Inhale 2 Puffs as 1 Inhaler 2 01/21/2013 VENTOLIN HFA) 90 directed every 4 mcg/actuation inhaler hours as needed for Wheezing. ASPIRIN/SOD BICARB/CITRIC Take by mouth. 0 08/21/2013 ACID (MIRIAM-SELTZER ORAL) azithromycin (ZITHROMAX) Take 2 tablets (500 6 Tab 0 01/14/2013 250 mg tablet mg) on Day 1, followed by 1 tablet (250 mg) once daily on Days 2 through 5. loratadine (CLARITIN) 10 Take 10 mg by mouth 0 01/14/2013 mg tablet daily. metoclopramide HCl Take 1 Tab by mouth 10 Tab 0 09/01/20 12 01/14/2013 (REGLAN) 10 mg tablet 4 times daily as needed for Nausea. predniSONE (DELTASONE) 10 Take 4 Tabs by 20 Tab 0 201109/06/2012 mg tablet mouth daily for 5 days. documented as of this encounter Ordered Prescriptions Prescription Sig Dispensed Refills Start Date End Date predniSONE (DELTASONE) 10 Take 4 Tabs by 20 Tab 0 201109/06/2012 mg tablet mouth daily for 5 days. metoclopramide HCl (REGLAN) Take 1 Tab by 10 Tab 0 09/0101/14/2013 10 mg tablet mouth 4 times daily as needed for Nausea. documented in this encounter Discharge Disposition Disposition Code Departure Means Destination Home or Self Care Walk-out Home documented in this encounter Procedure Notes PUBLICATIONS MANAGER, PATRICK 2 - 09/16/2012 2253 EDTAssociated Order(s): ECG REPORT - SCANNED documented in this encounter ED Notes Rigo Fermin - 09/01/201236 EDT Blood drawn via saline lock per protocol, tiger, blue, green and purple tube(s) sent to lab per order. avid Cole MD - 09/01/2012 0922 EDT I performed a history and exam of Kasie Llamas Jr. and discussed the case with the physician head start assistant teacher. I reviewed this individual's note and I concur with the documented findings and plan of care. Kasie Llamas Jr. is a 22 y.o.male with a pmh which includes hypertension, CABRALES, mass, depression, and pneumonia. Has had a previous extensive workup in 01/26 for a prolonged episode of myalgias, cough,pharyngitis, emesis. Evaluated on 08/30 for 4 days of chills, myalgias, productive cough discharged with a prescription for azithromycin and a plan for aggressive albuterol use. Also encouraged to quitsmoking. Presents today via vehicle with persistent . symptoms refractory to outpatient interventions. He also describes having essentially no oral intake over the past 2 days due to poor appetite, persistent nausea, and upper abdominal discomfort He also developed chest tightness early this morning which was worsened by inspiration and positional change. History provided by patient, family, medical records . Review of systems: With the exceptions of the positives mentioned above, a full 10 point review of systems is normal. Physical exam: BP 147/87 Pulse 101 Temp(Src) 36.8 ??C (98.2 ??F) (Tympanic) Resp 22 Ht 175.3cm (69) Wt 104.327 kg (230 lb) BMI 33.96 kg/m2 SpO2 99%. A full physical exam is normal with the exception of the following findings: anxiety, tachypnea, diffuse wheezing. Also left lower quadrant and epigastric tenderness. EKG: Findings include: normal sinus rhythm, nonspecific ST and T waves changes. The study has been independently viewed by me. The study has been interpreted independently and contemporaneously by me. The EKG appears to be a good tracing. Attending lease out man not available for acute interpretation. CHEST X-ray: No acute cardiopulmonary disease.I personally reviewed the above study(ies) contemporaneously and independently. Reviewed and discussed findings with document control supervisor radiology technologist. Attending radiologist not present and immediately available for formal review. Labs Reviewed LACTIC ACID - Abnormal; Notable for the following: Lactic Acid 2.4 (*) All other components within normal limits HEMAGRAM AND DIFFERENTIAL HOLD BLUE TOP HEMAGRAM DIFFERENTIAL ELECTROLYTES BUN CREATININE SCREENING GLUCOSE Hospital Course: Presents with persistent chills, cough, myalgias, and dyspnea refractory to outpatient management with azithromycin and albuterol. Also has new-onset chest pain worsening with inspiration or positionalchange as well as decreased oral intake associated upper abdominal discomfort. Clinically improved after receiving IV normal saline, multiple albuterol nebulizers, prednisone, antiemetics, and oral antacids. Chest x-ray negative. Initially mildly elevated lactate. Treated with multiple liters of normal saline. Clinically improved on reassessment with improved dyspnea, resolved chest/epigastric pressure, and tolerating oral intake without nausea or emesis. Amount and/or Complexity of Data Reviewed Clinical lab tests: ordered and reviewed Tests in the radiology section of CPT??: ordered and reviewed Tests in the medicine section of CPT??: ordered and reviewed Discussion of test results with the performing providers: yes Decide to obtain previous medical records or to obtain history from someone other than the patient: yes Obtain history from someone other than the patient: yes Review and summarize past medical records: yes Discuss the patient with other providers: No Risk of Complications, Morbidity, and/or Mortality Presenting problems: High Diagnostic procedures: High Management options: High This patient presented with atypical chest pain. Diagnosis considered but excluded by a thorough history, physical exam and testing included acute coronary syndrome, pulmonary embolus, pneumothorax, orpneumonia. These were discussed with the patient prior to discharge. 5 Clinical impression: Pleuritic chest pain Bronchitis Condition on discharge: Improved Rigo Nunez - 09/01/2012 0918 EDT 12 Lead EKG Performed by Rigo Fermin and shown to David Cole MD. utch Gann RN - 09/01/2012 0902 EDT Pt crying that his chest hurts, Ed provider aware of pt condition, offered comfort and reassurance. Marina Doty PA - 09/01/2012 0832 EDT DOS: 09/01/2012 Chief Complaint Patient presents with ??? Shortness of Breath Pt reports increased SOB x 2 days, with productive cough and subjective fevers. Pt states he used nebulizer and inhaler this am w/o relief. Pt is currently on zithromax x3 days for URI. ??? Cough Pt reports yellow sputum, pt reports he has also had chest tightness since last night The patient is a 22 y.o. male who presents today with Shortness of Breath and Cough HPI Comments: 22-year-old male with history of asthma presents with complaints of shortness of breath, fever and productive cough x3 days. Patient was seen in his PCP office on 08/30 with complaints ofchills, myalgias and productive cough. Patient was given prescription for an albuterol inhaler, and prescription for Z- Sarthak. Patient was advised to stop smoking. He has taken a third dose of azithromycin this morning, though denies relief of symptoms. Patient states he has tried an albuterol inhaler without relief. Patient notes chest tightness. He also notes sore throat. Shortness of Breath Associated symptoms include a fever, sore throat, cough and chest pain. Pertinent negatives include no rash. Cough Associated symptoms include chest pain, chills, sore throat and shortness of breath. The history is provided by the patient. Review of Systems Constitutional: Positive for fever and chills. HENT: Positive for sore throat. Respiratory: Positive for cough and shortness of breath. Cardiovascular: Positive for chest pain. Skin: Negative for color change and rash. All other systems reviewed and are negative. Past Medical History Diagnosis Date ??? Hypertension ??? Asthma ??? Chicken pox As a child ??? CABRALES (nonalcoholic steatohepatitis) ??? Glucose intolerance (impaired glucose tolerance) ??? Depression Past Surgical History Procedure Date ??? Tympanostomy tube placement Allergies Allergen Reactions ??? Cats ??? Pollen Extracts History Substance Use Topics ??? Smoking status: Current Everyday Smoker -- 1.0 packs/day for 7 years Types: Cigarettes ??? Smokeless tobacco: Never Used Comment: off and on for 7 years ??? Alcohol Use: Yes occasionally Family History Problem Relation Age of Onset ??? Hypertension Father ??? Diabetes Maternal Grandmother ??? Diabetes Paternal Grandmother ??? Cancer Maternal Grandfather lung ??? High Cholesterol Father ??? Asthma Maternal Grandfather ??? Diabetes Maternal Grandfather ??? High Cholesterol Maternal Grandfather ??? Heart Disease Maternal Grandfather ??? Stroke Maternal Grandfather ??? Stroke Paternal Grandmother ??? Coronary Artery Disease Other great-uncle Vital Signs Temp: 36.8 ??C (98.2 ??F) Temp src: Tympanic Pulse: 101 Resp: 22 SpO2: 99 % BP: 147/87 mmHg BP Device: BP Machine Patient Position: Sitting BP Cuff Location: Left arm O2 Device: None (Room air) Physical Exam Nursing note and vitals reviewed. Constitutional: He is oriented to person, place, and time. He appears well- developed and well-nourished. No distress. HENT: Head: Normocephalic and atraumatic. Mouth/Throat: Oropharynx is clear and moist. No oropharyngeal exudate. Eyes: EOM are normal. Neck: Normal range of motion. Neck supple. Cardiovascular: Normal rate, regular rhythm and normal heart sounds. Pulmonary/Chest: No respiratory distress. He has wheezes. He has no rales. Breathing mildly labored Musculoskeletal: Normal range of motion. Neurological: He is alert and oriented to person, place, and time. He has normal strength. No sensory deficit. Skin: Skin is warm and dry. No rash noted. No erythema. Psychiatric: He has a normal mood and affect. His behavior is normal. Radiology orders: PORTABLE CHEST 1 VIEW PORTABLE CHEST 1 VIEW Final result not shown here.: Impression: Normal chest. EKG 12-LEAD ED Interpretation: EKG: Findings include: normal sinus rhythm, nonspecific ST and T waves changes. The study has been independently viewed by me. The study has been interpreted independently and contemporaneously by me. The EKG appears to be a good tracing. Attending lease out man not available for acute interpretation. Procedures Labs Reviewed ELECTROLYTES - Abnormal; Notable for the following: CO2 22 (*) All other components within normal limits SCREENING GLUCOSE - Abnormal; Notable for the following: Glucose, Screening 106 (*) All other components within normal limits LACTIC ACID - Abnormal; Notable for the following: Lactic Acid 2.4 (*) All other components within normal limits BUN CREATININE HEMAGRAM AND DIFFERENTIAL HOLD BLUE TOP HEMAGRAM DIFFERENTIAL ED Course: A medical screening exam was performed. Shortly after arrival, patient had increased work of breathing and began complaining of chest pain. Appears quite anxious. Moved to AC. Attending aware. Given nebulizer and prednisone. On day of Z-sarthak prescribed by PCP. Patient discharged by ER Attending. Disposition: Discharged The patient's pain was managed to an adequate level weighing risk vs. benefit of further medications. Upon departure from the Emergency Department, the patient's pain was 9 on a zero to ten scale. Condition at departure from the Emergency Department: Improved Discharge Prescriptions New Prescriptions METOCLOPRAMIDE HCL (REGLAN) 10 MG TABLET Take 1 Tab by mouth 4 times daily as needed for Nausea. PREDNISONE (DELTASONE) 10 MG TABLET Take 4 Tabs by mouth daily for 5 days. MDM Number of Diagnoses or Management Options Bronchitis: Gastritis: Pleuritic chest pain: Diagnosis management comments: 4 Amount and/or Complexity of Data Reviewed Clinical lab tests: ordered and reviewed Tests in the radiology section of CPT??: ordered and reviewed Review and summarize past medical records: yes Discuss the patient with other providers: yes (ER Attending) 1. Bronchitis 2. Pleuritic chest pain 3. Gastritis PCP: MD David Blount was consulted and agrees with treatment plan. 09/02/2012 15:22 Annemarie Corona - 09/01/2012 0825 EDT Pt appears anxious, increased WOB, loose productive cough, occasional wheezes. Neb tx in progress, HOB elevated. PA aware documented in this encounter Miscellaneous Notes Scanned Note-Null - PUBLICATIONS MANAGER, SCAN 2 - 09/05/2012 0728 EDT documented in this encounter Plan of Treatment Not on filedocumented as of this encounter Procedures Procedure Name Priority Date/Time Associated Comments Diagnosis ECG REPORT - SCANNED 09/16/2012 21:08 Res ults for this EDT procedure are i n the results section. SCREENING GLUCOSE STAT 09/01/2012 9:30 Results for this EDT procedure are i n the results section. HOLD BLUE TOP STAT 09/01/2012 9:30 Results for this EDT procedure are i n the results section. LACTIC ACID STAT 09/01/2012 9:30 Results for this EDT procedure are i n the results section. DIFFERENTIAL Routine 09/01/2012 9:30 Results for this EDT procedure are i n the results section. COMPLETE BLOOD COUNT Routine 09/01/2012 9:30 Resu lts for this EDT procedure are i n the results section. COMPLETE BLOOD COUNT STAT 09/01/2012 9:30 AND DIFFERENTIAL EDT BUN STAT 09/01/2012 9:30 Results for this EDT procedure are i n the results section. CREATININE STAT 09/01/2012 9:30 Results for this EDT procedure are i n the results section. ELECTROLYTES STAT 09/01/2012 9:30 Results for this EDT procedure are i n the results section. EKG 12-LEAD STAT 09/01/2012 9:16 Results for this EDT procedure are i n the results section. PORTABLE CHEST 1 VIEW STAT 09/01/2012 9:15 Res ults for this EDT procedure are i n the results section. documented in this encounter Results ECG REPORT - SCANNED (09/16/2012 21:08 EDT) Specimen Narrative 09/17/2012 0:23 EDT Procedure Note PUBLICATIONS MANAGER, SCAN 2 - 09/16/2012 21:08 EDT DIFFERENTIAL (09/01/2012 9:30 EDT) Pathologist Sig nature Neutrophils 72.5 45.5 - 79.7 % [facility] Lymphocytes 18.7 15.0 - 46.8 % [facility] Monocytes 7.1 1.8 - 12.0 % [facility] Eosinophils 1.3 0.6 - 6.9 % [facility] Basophils 0.4 0.2 - 1.4 % [facility] ABS Neutrophils 6.01 2.20 - 8.85 K/cmm [facility] ABS Lymphs 1.54 1.09 - 3.30 K/cmm [facility] ABS Monocytes 0.59 0.1 - 0.8 K/cmm [facility] ABS Eosinophils 0.11 0.03 - 0.61 K/cmm [facility] ABS Basophils 0.03 0.01 - 0.11 K/cmm [facility] Type of Diff: Automated [facility] Specimen Performing Organization Address City/[facility]/ZIP Code Phon e Number [facility] [address] [place] [address] SERVICES [facility] [address] [place] [address] HEMAGRAM (09/01/2012 9:30 EDT) Pathologist Sig nature WBC 8.28 4.0 - 10.4 K/cmm [facility] RBC 4.99 4.36 - 5.78 M/cmm [facility] Hemoglobin 15.6 13.8 - 17.3 gm/dl [facility] HCT 44.5 39.5 - 50.2 % [facility] MCV 89 81 - 95 fl [facility] MCH 31.3 27.6 - 33.0 pg [facility] MCHC 35.1 32.8 - 36.4 gm/dl [facility] PLT 157 141 - 320 K/cmm [facility] RDW-CV 13.7 11.8 - 14.1 % [facility] Specimen Performing Organization Address City/[facility]/ZIP [facility] Phon e Number [facility] [address] [place] [address] SERVICES [facility] [address] [place] [address] HOLD BLUE TOP (09/01/2012 9:30 EDT) Pathologist Sig nature Hold Blue Top Sample for [facility] coagulation will be discarded after 4 hours Specimen Blood specimen (specimen) Performing Organization Address City/[facility]/ZIP Code Phon e Number [facility] [address] [place] [address] SERVICES [facility] [address] [place] [address] (ABNORMAL) LACTIC ACID (09/01/2012 9:30 EDT) Pathologist Sig nature Lactic Acid 2.4 (H) 0.7 - 2.1 mmol/L [facility] Specimen Blood specimen (specimen) Performing Organization Address City/[facility]/ZIP Code Phon e Number [facility] [address] [place] [address] SERVICES [facility] [address] [place] [address] (ABNORMAL) SCREENING GLUCOSE (09/01/2012 9:30 EDT) Pathologist Sig nature Glucose, Screening 106 (H) 70 - 100 mg/dl [facility] Specimen Blood specimen (specimen) Performing Organization Address [facility] Phon e Number [facility] [address] [place] [address] SERVICES [facility] [address] [place] [address] CREATININE (09/01/2012 9:30 EDT) Pathologist Sig nature Creatinine 0.93 0.66 - 1.25 mg/dl [facility] GFR, Calculated >60 >60 ml/min/1.73m2 [facility] Specimen Blood specimen (specimen) Performing Organization Address [facility]/ZIP [facility] Phon e Number [facility] [address] [place] [address] SERVICES [facility] [address] [place] [address] BUN (09/01/2012 9:30 EDT) Pathologist Sig nature BUN 10 10 - 26 mg/dl [facility] Specimen Blood specimen (specimen) Performing Organization Address [facility]/ZIP Code Phon e Number [facility] [address] [place] [address] SERVICES [facility] [address] [place] [address] (ABNORMAL) ELECTROLYTES (09/01/2012 9:30 EDT) Pathologist Sig nature Sodium 140 136 - 145 mEq/L [facility] Potassium 3.5 3.5 - 5.0 mEq/L [facility] Chloride 103 96 - 110 mEq/L [facility] CO2 22 (L) 24 - 32 mEq/L [facility] Specimen Blood specimen (specimen) Performing Organization Address [facility]/ZIP [facility] Phon e Number [facility] [address] [place] [address] SERVICES [facility] [address] [place] [address] EKG 12-LEAD (09/01/2012 9:16 EDT) Specimen Narrative [facility] - 09/14/2012 18 :58 EDT ?[facility] ? Test Date: ?2012-09-01 Pat Name: ? SHEAN LLAMAS ?Department: ?? ED ? Room: ? GT24 Gender: ? M ?Electrotyper Helper: ?? [phone] : ?1990 ? Requested By: SANTY MARINA Order Number: [id number] ?Reading MD: ?? OUMAR FISHER MD ? Measurements Intervals ?[place] ? Rate: ? 92 ? P: ?70 [place]: ? 154 ?QRS: ?74 QRSD: ? 101 ?T: ?57 QT: ? 347 ? QTc: ?397 ? Interpretive Statements SINUS RHYTHM Normal ECG No previous ECG available for comparison Edited by Madi Purcell MD on 09-12-12 13: 27:31 EDT Electronically Signed On 09-14-12 18:58: 22 EDT by OUMAR FISHER MD Procedure Note Oumar Fisher MD - 09/14/2012 [facility] Test Date: 2012-09-01 Pat Name: KASIE LLAMAS Department: ED Room: [facility] Gender: M Electrotyper Helper: [phone] : 1990 Requested By: SANTY VALENZUELA Order Number: [id number] Obdulio MD: MARITZA FISHER MD Measurements Intervals [place] Rate: 92 P: 70 [place]: 154 QRS: 74 QRSD: 101 T: 57 QT: 347 QTc: 397 Interpretive Statements SINUS RHYTHM Normal ECG No previous ECG available for comparison Edited by Madi Purcell MD on 09-12-12 13: 27:31 EDT Electronically Signed On 09-14-12 18:58: 22 EDT by OUMAR FISHER MD Performing Organization Address City/State/ZIP Code Phon e Number [facility] [address] [facility] [address] [facility] [address] [place], [place] [address] PORTABLE CHEST 1 VIEW (09/01/2012 9:15 EDT) Anatomical Region Laterality Modality Other Specimen Narrative [facility] - 09/01/2012 12:04 EDT PORTABLE CHEST 1 VIEW ??Sep 01, 2012 09:15:00 AM Signs and Symptoms/Comments: ??SHORTNESS OF BREATH, chest pain, COUGH Comparison: January 19 2011. Findings: Single portable AP view of the chest was obtained. The lungs are clear and there is no pleural effusion o r pneumothorax. The cardiac silhouette and pulmonary vasculature are normal. The bones appear normal for age. Impression: Normal chest. I have personally reviewed the images an ariel the above interpretation and agree with the findings. Procedure Note Олег Egan MD - 09/01/2012 PORTABLE CHEST 1 VIEW Sep 01, 2012 09:15 :00 AM Signs and Symptoms/Comments: SHORTNESS O F BREATH, chest pain, COUGH Comparison: January 19 2011. Findings: Single portable AP view of the chest was obtained. The lungs are clear and there is no pleural effusion o r pneumothorax. The cardiac silhouette and pulmonary vasculature are normal. The bones appear normal for age. Impression: Normal chest. I have personally reviewed the images an ariel the above interpretation and agree with the findings. Performing Organization Address City/State/ZIP Code Phon e Number [facility] documented in this encounter Visit Diagnoses Diagnosis Bronchitis Bronchitis, not specified as acute or ch ronic Pleuritic chest pain Painful respiration Gastritis Unspecified gastritis and gastroduodenit is without mention of hemorrhage documented in this encounter Administered Medications Inactive Administered Medications - up to 3 most recent administrations Medication Order MAR Action Action Date Dose Rate Site aluminum & magnesium Given 09/01/2012 10:19 EDT 30 mL hydroxide-simethicone (MYLANTA-DS) 400-400-40 mg/5 mL suspension 30 mL 30 mL, oral, NOW X1, 1 dose, On Sat09/01/12 at 1015, STAT famotidine (PEPCID) tablet 40 mg Given 09/01/2012 10:19 EDT 40 mg 40 mg, oral, NOW X1, 1 dose, On Sat09/01/12 at 1015, STAT ipratropium-albuterol (DUONEB) 0.5 mg-3 mg(2.5 mg Given 09/01/2012 8:51 EDT 3 mL base)/3 mL nebulizer solution 3 mL 3 mL, nebulization, NOW X1, 1 dose, On Sat09/01/12 at 0900, STAT lorazepam (ATIVAN) injection 0.5 mg Given 09/01/2012 9:48 EDT 0.5 mg 0.5 mg, intravenous, NOW X1, 1 dose, On Sat09/01/12 at 0930, STAT metoCLOPramide (REGLAN) injection 10 mg Given 09/01/2012 10:02 EDT 10 mg 10 mg, intravenous, NOW X1, 1 dose, On 09/01/12 at 1015, STAT metoclopramide HCl (REGLAN) tablet 20 mg Given 09/01/2012 11:17 EDT 20 mg 20 mg, oral, NOW X1, 1 dose, On Sat09/01/12 at 1130, STAT predniSONE (DELTASONE) tablet 50 mg Given 09/01/2012 8:51 EDT 50 mg 50 mg, oral, DAILY, First dose on Sat09/01/12 at 0900, Until Discontinued, STAT predniSONE (DELTASONE) tablet 80 mg Given 09/01/2012 11:17 EDT 80 mg 80 mg, oral, NOW X1, 1 dose, On Sat09/01/12 at 1130, STAT sodium chloride (NS) 0.9 % 1,000 mL BOLU S Given 09/01/2012 9:48 EDT 1,000 mL 1,000 mL, intravenous, ONCE, 1 dose, Starting on 09/01/12 at 0945, Until Sat09/01/12 at 1015, STAT sodium chloride (NS) 0.9 % 1,000 mL BOLU S Given 09/01/2012 10:15 EDT 1,000 mL 1,000 mL, intravenous, ONCE, 1 dose, Starting on Sat09/01/12 at 1145, Until Sat09/01/12 at 1100, STAT documented in this encounter Active and Recently Administered Medications Times are shown in EDT. Scheduled Medication Order 08/30/2012 08/31/2012 09/01/2012 aluminum & magnesium hydroxide-simethico ne (MYLANTA-DS) 400-400-40 mg/5 mL suspension 30 mL (COMPLETED) 1019 (Given - Provider: Edie Molina RN) 30 mL, Oral, NOW X1, 1 dose, 09/01/12 at 1015 famotidine (PEPCID) tablet 40 mg (COMPLETED) 1019 (Given - Provider: Edie Molina RN) 40 mg, Oral, NOW X1, 1 dose, 09/01/12 at 1015 ipratropium-albuterol (DUONEB) 0.5 mg-3 mg(2.5 mg base)/3 mL nebulizer solution 3 mL (COMPLETED) 0851 (Given - Provid er: Janie Pat RN) 3 mL, Nebulization, NOW X1, 1 dose, 09/01/12 at 0900 lorazepam (ATIVAN) injection 0.5 mg (COMPLETED) 0948 (Given - Provider: Edie Molina RN) 0.5 mg, Intravenous, NOW X1, 1 dose, Sat09/01/12 at 0930 metoCLOPramide (REGLAN) injection 10 mg (COMPLETED) 1002 (Given - Provider: Edie Molina RN) 10 mg, Intravenous, NOW X1, 1 dose, Sat09/01/12 at 1015 metoclopramide HCl (REGLAN) tablet 20 mg (COMPLETED) 1117 (Given - Provider: Edie Molina RN - Comment: given to go) 20 mg, oral, NOW X1, 1 dose, Sat09/01/12 at 1130, STAT predniSONE (DELTASONE) tablet 50 mg (CANCELED) 0851 (Given - Provider: Janie Pat RN) 50 mg, Oral, DAILY, First dose on Sat09/01/12 at 0900, Until Di scontinued predniSONE (DELTASONE) tablet 80 mg (COMPLETED) 1117 (Given - Provider: Edie Molina RN - Comment: given to go) 80 mg, oral, NOW X1, 1 dose, Sat09/01/12 at 1130, STAT sodium chloride (NS) 0.9 % 1,000 mL BOLUS (COMPLETED) 0948 (Given - Provider: Edie Molina RN)1015 (Completed - Provider: Edie Molina RN) 1,000 mL, Intravenous, ONCE, 1 dose, First dose on Sat09/01/12 at 0945 sodium chloride (NS) 0.9 % 1,000 mL BOLUS (COMPLETED) 1015 (Given - Provider: Edie Molina RN)1100 (Completed - Provider: Edie Molina RN) 1,000 mL, intravenous, ONCE, 1 dose, First dose on Sat09/01/12 at 1145, STAT documented in this encounter Orders Medications Ordered That Might Not Have Count Last Ord ered Date First Ordered Date Been Administered albuterol (PROVENTIL) 2.5 mg /3 mL (0.083 1 2011 %) nebulizer solution Nursing Count Last Ordered Date First Ordered Date INSERT PERIPHERAL IV 2 09/01/2012 documented in this encounter Care Teams Finance Broker Relationship Specialty Start Date End Date Ilan Kelly MD PCP - General 01/29/11 03/18/13 1 [facility] [address] [place] [address] documented as of this encounter
--- OUTSIDE RECORDS SUMMARY | 2022-06-05 06:51 | XMS_ITS | Encounter Summary ---
:1990 Author Organization [facility] Address [address] [place] [address] Care Team Providers Name Role Phone Ilan Kelly MD Primary Care Provider Sixto Sandoval MD Unavailable Encounter Details Date Type Department Care Team Description 02/11/2013 Hospital Encounter [facility] [address] [place] [address] Social History Tobacco Use Types Packs/Day Years [...] 10:43 EDT documented as of this encounter Medications at Time of Discharge Medication Sig Dispensed Refills Start Date End Date ASPIRIN/SOD BICARB/CITRIC Take by mouth. 0 08/21/2013 ACID (MIRIAM-SELTZER ORAL) omeprazole (PRILOSEC) 20 Take 20 mg by mouth 0 08/21/2013 mg capsule 2 times daily. documented as of this encounter Discharge Disposition Disposition Code Departure Means Destination Home or Self Long Term documented in this encounter Plan of Treatment Not on filedocumented as of this encounter Visit Diagnoses Not on filedocumented in this encounter Care Teams Field Mechanical Meter Tester Relationship Specialty Start Date End Date Ilan Kelly MD PCP - General 01/29/11 03/18/13 1 [facility] 1 [place] [phone] Sixto Sandoval MD PCP - Alternate 01/05/13 12/25/15 [address] [place] [address] documented as of this encounter
--- OUTSIDE RECORDS SUMMARY | 2022-06-05 06:51 | XMS_ITS | Encounter Summary ---
:1990 Author Organization [facility] Address [address] [place] [address] Care Team Providers Name Role Phone Sixto Sandoval MD Unavailable Wolf Bethea MD MPH Primary Care Provider Reason for Visit Reason Onset Date Comments Emesis 11/07/2013 Encounter Details Date Type Department Care Team Description 11/07/2013 Telephone [facility] Adult Jose Bethea MD Emesis Primary Care - Gabino lantigua MPH 1 [facility] 1 [place] [address] [place] [phone] (Wo rk) Social History [...] this encounter Miscellaneous Notes Telephone Encounter - Airam Velasquez RN - 11/07/2013 1241 EST LM for pritesh and mother to to discuss appt scheduled for today with oncall provider @ 13:00.; family is on their way. Telephone Encounter - Katarzyna Gallo - 11/07/2013 1151 EST Patient has been vomiting. There is now blood in the vomit. Mom wants advice. documented in this encounter Plan of Treatment Not on filedocumented as of this encounter Visit Diagnoses Not on filedocumented in this encounter Care Teams Team Psychologist Relationship Specialty Start Date End Date Sixto Sandoval MD PCP - Alternate 01/05/13 12/25/15 [address] [place] [address] Wolf Bethea MD MPH PCP - General 03/19/13 06/03/14 1 [facility] [address] [place] [address] documented as of this encounter
--- OUTSIDE RECORDS SUMMARY | 2022-06-05 06:51 | XMS_ITS | Encounter Summary ---
:1990 Author Organization [facility] Address [address] [place] [address] Care Team Providers Name Role Phone Sixto Sandoval MD Unavailable Wolf Bethea MD MPH Primary Care Provider [phone] Encounter Details Date Type Department Care Team Description 11/30/2013 Phlebotomy Only [facility], Acute blood loss - [facility] Outpatient anemia [address] [place], [place] [address] [phone] Social History Tobacco Use Types Packs/Day Years [...] Name Priority Date/Time Associated Diagnosis Comme nts COMPLETE BLOOD STAT 11/30/2013 14:48 Acute blood loss Resul ts for this COUNT EST anemia procedure are i n the results section. documented in this encounter Results HEMAGRAM (11/30/2013 14:48 EST) Pathologist Sig nature WBC 8.87 4.0 - 10.4 K/cmm [facility] RBC 4.85 4.36 - 5.78 M/cmm [facility] Hemoglobin 15.3 13.8 - 17.3 gm/dl [facility] HCT 42.9 39.5 - 50.2 % [facility] MCV 89 81 - 95 fl [facility] MCH 31.6 27.6 - 33.0 pg [facility] MCHC 35.7 32.8 - 36.4 gm/dl [facility] PLT 205 141 - 320 K/cmm [facility] RDW-CV 13.6 11.8 - 14.1 % [facility] Specimen Blood specimen (specimen) Performing Organization Address City/State/ZIP Code Phon e Number [facility] [address] [place] [address] SERVICES [facility] [address] [place] [address] documented in this encounter Visit Diagnoses Diagnosis Acute blood loss anemia Acute posthemorrhagic anemia documented in this encounter Care Teams Box Toe Stitcher Relationship Specialty Start Date End Date Sixto Sandoval MD PCP - Alternate 01/05/13 12/25/15 [address] [place] [address] Wolf Bethea MD MPH PCP - General 03/19/13 06/03/14 1 [facility] [address] [place] [address] documented as of this encounter
--- OUTSIDE RECORDS SUMMARY | 2022-06-05 06:51 | XMS_ITS | Encounter Summary ---
:1990 Author Organization [facility] Address [address] [place] [address] Care Team Providers Name Role Phone Ilan Kelly MD Primary Care Provider Reason for Visit Reason Onset Date Comments Ged Preparation Teacher Message 10/10/2011 Encounter Details Date Type Department Care Team Description 10/10/2011 Telephone [facility] Adult Livier Cruz MD Ged Preparation Teacher Message Primary Care - [address] [place] [address] [place], [place] [phone] (Wo rk) Social History Tobacco Use [...] this encounter Miscellaneous Notes Telephone Encounter - Livier Cruz MD - 10/10/2011 8143 EST Ans service gave message that mother of pt called saying pt received ambien script today at office but that it was erroneously escribed and needs to be called in. Mother did not leave phone number. OV from today reviewed and note specifcally says that ambien will not be prescribed 2/2 to h/o overdose of this med. I tried to reach pt (mobile and home number) but got voice mail and did not leave message. documented in this encounter Plan of Treatment Not on filedocumented as of this encounter Visit Diagnoses Not on filedocumented in this encounter Care Teams Steward Dishwasher Relationship Specialty Start Date End Date Ilan Kelly MD PCP - General 01/29/11 03/18/13 1 [facility] 1 [place] [phone] documented as of this encounter
--- OUTSIDE RECORDS SUMMARY | 2022-06-05 06:51 | XMS_ITS | Encounter Summary ---
:1990 Author Organization [facility] Address [address] [place] [address] Care Team Providers Name Role Phone Ilan Kelly MD Primary Care Provider Sixto Sandoval MD Unavailable Encounter Details Date Type Department Care Team Description 01/05/2013 Phlebotomy Only [facility] - Warehouse Logistics Manager, Hem atemesis [facility] Outpatient [address] [place] [address] Social History Tobacco Use Types Packs/Day Years [...] Name Priority Date/Time Associated Diagnosis Comme nts HELICOBACTER PYLORI Routine 01/05/2013 15:04 Hematemesis Resu lts for this IGG ANTIBODY EST procedure are i n the results section. COMPLETE BLOOD COUNT Routine 01/05/2013 15:04 Hematemesis Res ults for this EST procedure are i n the results section. documented in this encounter Results HEMAGRAM (01/05/2013 15:04 EST) Pathologist [facility] nature WBC 7.58 4.0 - 10.4 K/cmm [facility] RBC 4.72 4.36 - 5.78 M/cmm [facility] Hemoglobin 15.1 13.8 - 17.3 gm/dl [facility] HCT 41.6 39.5 - 50.2 % [facility] MCV 88 81 - 95 fl [facility] MCH 32.0 27.6 - 33.0 pg [facility] MCHC 36.2 32.8 - 36.4 gm/dl [facility] PLT 186 141 - 320 K/cmm [facility] RDW-CV 13.4 11.8 - 14.1 % [facility] Specimen Blood specimen (specimen) Performing Organization Address City/[facility]/ZIP Code Phon e Number [facility] [address] [place] [address] [facility] [address] [place] [address] HELICOBACTER PYLORI IGG ANTIBODY (01/05/2013 15:04 EST) H. Pylori IgG Ab NegComment: Assayed [facility] utilizing the Hipvan DSX system. Specimen Blood specimen (specimen) Performing Organization Address City/[facility]/ZIP Code Phon e Number [facility] [address] [place] [address] SERVICES [facility] [address] [place] [address] documented in this encounter Visit Diagnoses Diagnosis Hematemesis documented in this encounter Care Teams Director Of Distance Learning Relationship Specialty Start Date End Date Ilan Kelly MD PCP - General 01/29/11 03/18/13 1 [facility] 1 [place] [phone] Sixto Sandoval MD PCP - Alternate 01/05/13 12/25/[address] [place] [phone] documented as of this encounter
--- OUTSIDE RECORDS SUMMARY | 2022-06-05 06:51 | XMS_ITS | Encounter Summary ---
:1990 Author Organization [facility] Address [address] [place] [address] Care Team Providers Name Role Phone Ilan Kelly MD Primary Care Provider Sixto Sandoval MD Unavailable Reason for Visit Reason Onset Date Comments Labs Only 02/11/2013 Encounter Details Date Type Department Care Team Description 02/11/2013 Telephone [facility] Pulmonology Mayela mendez, Labs Only & Critical Care - D[place] in [place] CarrieDO [address] [place], [place] [phone] Social History Tobacco Use Types Packs/Day Years [...] this encounter Miscellaneous Notes Telephone Encounter - Socorro Purcell DO - 02/11/2013 1341 EDT Called patient and informed him of U/S and lab work results. Encouraged him to submit a stool sampleas previously discussed. documented in this encounter Plan of Treatment Not on filedocumented as of this encounter Visit Diagnoses Not on filedocumented in this encounter Care Teams Lip Of Shank Cutter Relationship Specialty Start Date End Date Ilan Kelly MD PCP - General 01/29/11 03/18/13 1 [facility] 1 [place] [phone] Sixto Sandoval MD PCP - Alternate 01/05/13 12/25/15 [address] [place] [address] documented as of this encounter
--- OUTSIDE RECORDS SUMMARY | 2022-06-05 06:51 | XMS_ITS | Encounter Summary ---
:1990 Author Organization [facility] Address [address] [place] [address] Care Team Providers Name Role Phone Ilan Kelly MD Primary Care Provider Reason for Visit Reason Comments Ingestion Pts girlfriend broke up with him tonight via text, pt then took 6-7 Ambien as as attempt at self harm. Pt admits to smoking marijuana earlier, denies any etoh today. Pt did admit to heroin a few days ago. Encounter Details Date Type Department Care Team Description 04/04/2011 - Emergency [facility] Malinda iRvera MD [address] [facility], Level [address] [place] [address] Depression; 04/05/2011 Emergency Department - Emergency, MD Pedro Pablo Overdose [address] [address] Social History Tobacco Use Types Packs/Day Years Used Date Current Every Day Smoker Cigarettes 0.5 2 Smokeless Tobacco: Never Used Comments: 10/20 down to 1 pack/day Alcohol Use Standard Drinks/Week Comments Yes 0 [...] Sign Reading Time Taken Comments Blood Pressure 122/65 04/05/2011 034 EDT Pulse 63 04/05/2011 034 EDT Temperature 37.9 ??C (100.2 ??F) 04/04/2011 2340 EDT Respiratory Rate 16 04/05/2011 034 EDT Oxygen Saturation 99% 04/05/2011 034 EDT Inhaled Oxygen Concentration - - Weight - - Height - - Body Mass Index - - documented in this encounter Discharge Instructions AttachmentsThe following attachments cannot be sent through Care Everywhere. DEPRESSION TREATMENT: AFTER YOUR VISIT (BRITISH)documented in this encounter Medications at Time of Discharge Medication Sig Dispensed Refills Start Date End Date albuterol (PROVENTIL HFA, Inhale 2 Puffs as 1 Inhaler 11 06/201103/18/2012 VENTOLIN HFA) 90 directed every 6 mcg/Actuation hours as needed for inhalerIndications: Cough Wheezing. fluticasone (FLOVENT) 110 Inhale 2 Puffs as 1 Inhaler 2 06/201110/10/2011 mcg/Actuation directed 2 times inhalerIndications: Cough daily. loratadine (CLARITIN) 10 Take 1 Tab by mouth 30 Tab 5 03/18/2012 mg tabletIndications: daily. Environmental allergies Melatonin 3 mg Tab Take 9 mg by mouth 0 0 10/10/2011 at bedtime. ondansetron (ZOFRAN) 4 mg Take 1 Tab by mouth 30 Tab 1 0 01/23/2011 10/10/2011 tabletIndications: Nausea every 8 hours as & vomiting needed for Nausea. sertraline (ZOLOFT) 100 Take 1 Tab by mouth 30 Tab 2 03/201110/10/2011 mg tabletIndications: daily. Depression tocopheryl acetate Take 400 Units by 0 10/10/2011 (VITAMIN E) 200 unit mouth daily. capsule zolpidem (AMBIEN) 10 mg Take 1 Tab by mouth 30 Tab 0 08/201103/18/2012 tabletIndications: at bedtime as needed Insomnia for Sleep. documented as of this encounter Discharge Disposition Disposition Code Departure Means Destination Home or Self Care Car Home documented in this encounter Progress Notes Sewer Inspector, Miguel - 04/04/2011 0000 EDT documented in this encounter Procedure Notes Sewer Inspector, Miguel - 04/04/2011 0000 EDTAssociated Order(s): ECG REPORT - SCANNED; ECG REPORT - SCANNED documented in this encounter Consult Notes Micah Regalado MD - 04/05/2011 0330 EDT ED Consult Note Admit Date: 04/04/2011 Date of Service: 04/05/2011 Requesting Physician: ED attending Specialty Completing Consult: psychiatry Reason for Consult: Patient with small OD on ambien as a presumed suicide attempt HPI: Zeeshan Gonzalez is a 21 year old male with a history of MDD, hospitalized multiple times as a child, with one serious suicide attempt by hanging at the age of 15, who was brought to the ED by his mother today after ingesting 7-8 pills of ambien. Zeeshan had a difficult two weeks. His father did not come to his birthday constitution party, he lost his job, and his girlfriend cheated on him and then broke up with him. Hedenies that it was a direct suicide attempt, saying instead that i took more pills because I wantedto sleep and I didn't care if I . When I went in to see Zeeshan he was tearful and upset because his mom had made a scene in the ED and was kicked out to the waiting room. He did agree to talk to me, and said fuck it, I'm done. I'm done with girls. I'm just going to worry about myself from now on. 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 He did not feel that his mood was any different after stopping it. Zeeshan had been seeing a therapist for a long time, with whom he had an excellent relationship, but he stopped seeing him 2 months ago as well because we didn't have the gas money to get there, I missed a couple of appointments, Barrie don't think he'll take me back. When asked if he felt suicidal now, Zeeshan denied it. He feels he will be safe to night, saying I just want a cigarette and to go to bed. His mother feels that he will be safe at home as well. He is open to restarting therapy. PMH PSH Past Medical History Diagnosis Date ??? Hypertension ??? Asthma ??? Chicken pox As a child ??? CABRALES (nonalcoholic steatohepatitis) ??? Glucose intolerance (impaired glucose tolerance) ??? Depression Past Surgical History Procedure Date ??? Tympanostomy tube placement Social History Family History History Substance Use Topics ??? Smoking status: Current Everyday Smoker -- 0.5 packs/day for 2 years Types: Cigarettes ??? Smokeless tobacco: Never Used Comment: 10/20 down to 1 pack/day ??? Alcohol Use: Yes occasionally Family History [...] Grandmother ??? Coronary Artery Disease Other great-uncle Medications No current facility-administered medications on file. Current outpatient prescriptions Medication Sig Dispense Refill ??? zolpidem (AMBIEN) 10 mg tablet Take 1 Tab by mouth at bedtime as needed for Sleep. 30 Tab 0 ??? ondansetron (ZOFRAN) 4 mg tablet Take 1 Tab by mouth every 8 hours as needed for Nausea. 30 Tab 1 ??? fluticasone (FLOVENT) 110 mcg/Actuation inhaler Inhale 2 Puffs as directed 2 times daily. 1 Inhaler 2 ??? albuterol (PROVENTIL HFA, VENTOLIN HFA) 90 mcg/Actuation inhaler Inhale 2 Puffs as directed every 6 hours as needed for Wheezing. 1 Inhaler 11 ??? sertraline (ZOLOFT) 100 mg tablet Take 1 Tab by mouth daily. 30 Tab 2 ??? loratadine (CLARITIN) 10 mg tablet Take 1 Tab by mouth daily. 30 Tab 5 ??? Melatonin 3 mg Tab Take 9 mg by mouth at bedtime. ??? tocopheryl acetate (VITAMIN E) 200 unit capsule Take 400 Units by mouth daily. Allergies Allergies Allergen Reactions ??? Pollen Extracts ??? Pineapple ??? Cats Objective/Physical Exam: VS: Patient Vital Signs in the past 8 hrs: BP Pulse Resp Temp SpO2 04/04/11 2340 145/79 mmHg 99 18 37.9 ??C (100.2 ??F) 98 % Mental Status Exam: morbidly obese young man, standing against the wall, tearful. Cooperative, good eye contact. Speech fluent and spontaneous, often elevated volume but regular rate. Mood, tired god damn it! Affect irritated, occasionally tearful. Thought process logical and goal oriented. Thought content negative for SI/HI. No A/VH. No evidence of delusional content. Denies OD was a real suicide attempt, but would not have minded dying at the time. Now future thinking. Insight/judgment: poor to fair; attention and concentration intact. Assessment: Zeeshan Gonzalez is a 21 year old male with a history of MDD, hospitalized multiple times as a child, with one serious suicide attempt by hanging at the age of 15, who was brought to the ED by his mother today after ingesting 7-8 pills of ambien. Patient says that he wouldn't have minded dying a t the time, but denies that that was his intention - saying he wanted to sleep. He has had a turbulent few weeks and a turbulent ED visit, however he is currently forward thinking, making plans for thefuture and is not feeling suicidal. He feels that he can be safe at home, as does his mother. Patient is open to restarting therapy, but has financial concerns over whether they can afford it. We gave him the intake number for [facility] and urged him to call. His mother will contact his old therapist andsee if he is willing to see him again. Patient and mother both instructed to call crisis and/or cometo the ER if Zeeshan should feel suicidal. Recommendations: 1) d/c home with mother 2) patient given intake number for [facility] 3) mother will try to arrange appointment with former therapist 4) patient is to come to the ED or call crisis if he becomes suicidal or feels unsafe Micah Regalado MD 04/05/2011 3:30 documented in this encounter ED Notes Vicki Nava - 04/05/2011 0354 EDT Pt offering no complaints on discharge. Ambulated out of ED with family. ocelyne Groves - 04/05/2011 0330 EDT Blood drawn via butterfly needle per protocol, tiger tube(s) sent to lab per order. aven Booth RN - 04/05/2011 0258 EDT Crisis and psych at bedside at this time. Jocelyne field - 04/05/2011 0246 EDT Making frequent phone calls, pt is agitated, teary and paces back and forth in room. aven Booth RN - 04/05/2011 0225 EDT Crisis at bedside. aven Booth RN - 04/05/2011 0205 EDT PIV removed per pt request, Dr. Rivera ok with this. aven Booth RN - 04/05/2011 0108 EDT Urine specimen sent to lab for D6. Pt and mom starting to raise voices, pts mom asked to go to waiting room, pt states no, we'll be calm, I want her to stay. Pt and mom given warning that if pts behavior escalates again because of mom she will be asked to leave. Pamela Servin MD - 04/05/2011 0048 EDT DOS: 04/04/2011 Chief Complaint Patient presents with ??? Ingestion Pts girlfriend broke up with him tonight via text, pt then took 6-7 Ambien as as attempt at self harm. Pt admits to smoking marijuana earlier, denies any etoh today. Pt did admit to heroin a few days ago. The patient is a 21 y.o. 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 He is prescribed this medicine and took approx 6-7 10 mg tabs.States his girlfriend told him today that she doesn't love him anymore and he became upset. Denies taking any other medications or any other attempt at self harm. States he smoked a 'giant blunt' of marijuana earlier today as well. Has otherwise been feeling well. States he feels slightly tired and dizzy, but denies any other physical complaints. He admits to heroin use a few weeks ago, but denies any regular drug use. Denies any alcohol use. Has been hospitalized in the past at [place]. Lives with his mother, feels safe at home. He states he is prescribed other pills for depression but has not been taking them. Used to see a counselor, but has not been recently for reasons he is unable to explain. Ingestion This is a new problem. The current episode started less than 1 hour ago. The problem has not changedsince onset. Ingestion amount is known. He has not vomited. There were no witnesses present for the ingestion. Review of Systems Constitutional: Negative for fever and chills. HENT: Negative for neck stiffness. Eyes: Negative for visual disturbance. Respiratory: Negative for shortness of breath. Cardiovascular: Negative for chest pain. Gastrointestinal: Negative for abdominal pain. Genitourinary: Negative for dysuria. Musculoskeletal: Negative for back pain. Skin: Negative for rash. Neurological: Negative for headaches. Psychiatric/Behavioral: Negative for confusion. All other systems reviewed and are negative. Past Medical History Diagnosis Date ??? Hypertension ??? Asthma ??? Chicken pox As a child ??? CABRALES (nonalcoholic steatohepatitis) ??? Glucose intolerance (impaired glucose tolerance) ??? Depression Past Surgical History Procedure Date ??? Tympanostomy tube placement Allergies Allergen Reactions ??? Pollen Extracts ??? Pineapple ??? Cats History Substance Use Topics ??? Smoking status: Current Everyday Smoker -- 0.5 packs/day for 2 years Types: Cigarettes ??? Smokeless tobacco: Never Used Comment: 10/20 down to 1 pack/day ??? Alcohol Use: Yes occasionally Family History [...] Artery Disease Other great-uncle Vital Signs Temp: 37.9 ??C (100.2 ??F) Pulse: 63 Resp: 16 SpO2: 99 % BP: 122/65 mmHg BP Device: BP Machine Patient Position: Sitting BP Cuff Location: Right arm O2 Device: None (Room air) Physical Exam Nursing note and vitals reviewed. Constitutional: He is oriented to person, place, and time. He appears well-developed. HENT: Head: Normocephalic and atraumatic. Eyes: Pupils are equal, round, and reactive to light. Neck: Neck supple. No tracheal deviation present. Cardiovascular: Normal rate and normal heart sounds. Pulmonary/Chest: Effort normal and breath sounds normal. No respiratory distress. He has no wheezes.He has no rales. Abdominal: Soft. Bowel sounds are normal. He exhibits no distension. No tenderness. Musculoskeletal: Normal range of motion. He exhibits no edema. Neurological: He is alert and oriented to person, place, and time. Skin: Skin is warm and dry. He is not diaphoretic. Psychiatric: Tearful, Positive si, no HI Radiology orders: None EKG 12-LEAD (Results Pending) Procedures ED Course: A medical screening exam was performed. Patient with ambien ingestion, unlikely significant intake. Given charcoal, labs checked. Crisis consulted. Cleared by crisis and psych. Mild elevation in AST and ALT which mother states is chronic for him due to CABRALES, repeat level drawn, but patient refused to stay for results. Will f/u with PMD. Disposition: Discharged The patient's pain was managed to an adequate level weighing risk vs. benefit of further medications. Upon departure from the Emergency Department, the patient's pain was 0 on a zero to ten scale. Condition at departure from the Emergency Department: Stable Discharge Prescriptions New Prescriptions No Discharge Prescriptions for this patient MDM Number of Diagnoses or Management Options Depression: Overdose: Diagnosis management comments: 4 Amount and/or Complexity of Data Reviewed Clinical lab tests: ordered and reviewed Tests in the medicine section of CPT??: ordered and reviewed Independent visualization of images, tracings, or specimens: yes 1. Depression (311L) 2. Overdose (977.9J) PCP: Ilan Kelly MD 04/05/2011 4:14 Haven cruz RN - 04/05/2011 0033 EDT Pt talking with his mother, pt tearful. This RN at bedside and pt states he wants his mother in the room and they are having a talk. Father stepped outside of room to notify this RN that mother can escalate pts behavior. Security notified and standing by. Haven cruz RN - 04/05/2011 0012 EDT Pt given activated charcoal per order, pt tolerated well. Given soda and toothbrush/toothpaste when done. untJocelyne - 04/05/2011 0009 EDT 12 Lead EKG Performed by Jocelyne Lagunas and shown to Pamela Rivera MD unt, Jocelyne - 04/05/2011 0009 EDT Blood drawn via saline lock per protocol, tiger tube(s) sent to lab per order. documented in this encounter Miscellaneous Notes Scanned Note-Null - Sewer Inspector, Scan - 04/04/2011 0000 EDT Scanned Note-Null - Sewer Inspector, Scan - 04/04/2011 0000 EDT Scanned Note-Null - Sewer Inspector, Scan - 04/04/2011 0000 EDT documented in this encounter Plan of Treatment Not on filedocumented as of this encounter Procedures Procedure Name Priority Date/Time Associated Comments Diagnosis ECG REPORT - SCANNED 04/17/2011 10:23 Res ults for this EDT procedure are i n the results section. ACETAMINOPHEN STAT 04/05/2011 3:26 Results for this EDT procedure are i n the results section. COMPREHENSIVE STAT 04/05/2011 3:26 Results for this METABOLIC PANEL (CMP) EDT proced ure are in the results section. DRUG SCREEN 6 STAT 04/05/2011 1:05 Results for this EDT procedure are i n the results section. ETHANOL, BLOOD STAT 04/04/2011 23:59 Results f or this EDT procedure are i n the results section. ACETAMINOPHEN STAT 04/04/2011 23:59 Results fo r this EDT procedure are i n the results section. SALICYLATE STAT 04/04/2011 23:59 Results for this EDT procedure are i n the results section. COMPREHENSIVE STAT 04/04/2011 23:59 Results fo r this METABOLIC PANEL (CMP) EDT proced ure are in the results section. EKG 12-LEAD STAT 04/04/2011 23:44 EDT documented in this encounter Results ECG REPORT - SCANNED (04/17/2011 10:23 EDT) Specimen Narrative This result has an attachment that is no t available. Procedure Note Sewer Inspector, Scan - 04/04/2011 0:00 ED T (ABNORMAL) COMPREHENSIVE METABOLIC PANEL (CMP) (04/05/2011 3:26 EDT) Potassium 3.8 3.5 - 5.0 [facility] mEq/L LAB Sodium 139 136 - 145 [facility] mEq/L LAB Chloride 105 96 - 110 [facility] mEq/L LAB CO2 25 24 - 32 mEq/L [facility] Total Alkaline 86 38 - 126 U/L [facility] Phosphatase LAB Bilirubin, Total 0.6 0.2 - 1.3 [facility] mg/dl LAB AST 91 (H)Comment: 15 - 46 U/L [facility] Sample retested, LAB result confirmed ALT 113 (H) 21 - 72 U/L [facility] Albumin 4.5 3.4 - 4.9 [facility] g/dl LAB Total Protein 7.4 6.5 - 8.3 [facility] g/dl LAB Creatinine 0.90 0.7 - 1.5 [facility] mg/dl LAB GFR, Calculated >60 ml/min/1.73m2 [facility] BUN 10 10 - 26 mg/dl [facility] Calcium 9.3 8.5 - 10.5 [facility] mg/dl LAB Calculated Calcium 9.2 8.5 - 10.5 [facility] mg/dl LAB Glucose, Serum 93 70 - 100 [facility] mg/dl LAB Fasting? Unknown [facility] Specimen Blood specimen (specimen) Performing Organization Address [facility] Phon e Number [facility] [address] [place] [address] SERVICES [facility] [address] [place] [address] ACETAMINOPHEN (04/05/2011 3:26 EDT) Pathologist Sig nature Acetaminophen <10.0 ug/ml [facility] Comment: ??Therapeutic range: ??10 - 30 ug/mL Possible toxicit y: ??150 - 200 ug/mL Probable toxicity: ??>200 ug/mL Specimen Blood specimen (specimen) Performing Organization Address [facility] Phon e Number [facility] [address] [place] [address] SERVICES [facility] [address] [place] [address] DRUG SCREEN 6 (04/05/2011 1:05 EDT) Amphetamine Screen, Negative screen. Confirmatio n testing available upon request. Suitable for medical purposes [facility] Urine only. Will not detect all drugs within class. Cutoff = 1000 ng/ml LAB Barbiturate Screen, Negative screen. Confirmatio n testing available upon request. Suitable for medical purposes [facility] Urine only. Will not detect all drugs within class. Cutoff = 300 ng/ml LAB Benzodiazepine Screen, Negative screen. Confirmatio n testing available upon request. Suitable for medical purposes [facility] Urine only. Will not detect all dr ugs within class. Assay less sensitive to Lorazepam and LAB metabolites. Cutoff = 200 ng/ml Cannabinoid Scrn, Ur Presumptive positive, interp ret with caution. Confirmation testing available upon request. [facility] Suitable for medical purpose s only. Will not detect all drugs within class. Cutoff = 50 ng/ml LAB Cocaine Metabolites, Negative screen. Confirmatio n testing available upon request. Suitable for medical purposes [facility] Ur only. Will not detect all drugs within class. Cutoff = 300 ng/ml LAB Opiate Scrn, Ur Negative screen. Confirmatio n testing available upon request. Suitable for medical purposes [facility] only. Will not detect all dr ugs within class. Cutoff = 300 ng/ml Does not detect oxycodone, LAB oxycontin or methadone. Specimen Urine (substance) Performing Organization Address [facility]/ZIP [facility] Phon e Number [facility] [address] [place] [address] SERVICES [facility] [address] [place] [address] ETHANOL, BLOOD (04/04/2011 23:59 EDT) Pathologist Sig nature Ethanol <10 <10 mg/dl [facility] Specimen Blood specimen (specimen) Performing Organization Address [facility]/ZIP [facility] Phon e Number [facility] [address] [place] [address] SERVICES [facility] [address] [place] [address] (ABNORMAL) COMPREHENSIVE METABOLIC PANEL (CMP) (04/04/2011 23:59 EDT) Pathologist Sig nature Potassium 3.8 3.5 - 5.0 mEq/L [facility] Sodium 139 136 - 145 mEq/L [facility] Chloride 104 96 - 110 mEq/L [facility] CO2 26 24 - 32 mEq/L [facility] Total Alkaline 82 38 - 126 U/L [facility] Phosphatase Bilirubin, Total 0.6 0.2 - 1.3 mg/dl [facility] AST 60 (H) 15 - 46 U/L [facility] ALT 86 (H) 21 - 72 U/L [facility] Albumin 4.5 3.4 - 4.9 g/dl [facility] Total Protein 7.5 6.5 - 8.3 g/dl [facility] Creatinine 1.00 0.7 - 1.5 mg/dl [facility] GFR, Calculated >60 ml/min/1.73m2 [facility] BUN 12 10 - 26 mg/dl [facility] Calcium 9.5 8.5 - 10.5 [facility] mg/dl Calculated Calcium 9.4 8.5 - 10.5 [facility] mg/dl Glucose, Serum 100 70 - 100 mg/dl [facility] Fasting? Unknown [facility] Specimen Blood specimen (specimen) Performing Organization Address [facility] Phon e Number [facility] [address] [place] [address] SERVICES [facility] [address] [place] [address] SALICYLATE (04/04/2011 23:59 EDT) Pathologist Sig nature Salicylate <1.0Comment: Negative mg/dl [facility] = <2 mg/dl Therapeutic = <20 mg/dl Toxic = >30 mg/dl Specimen Blood specimen (specimen) Performing Organization Address [facility] Phon e Number [facility] [address] [place] [address] SERVICES [facility] [address] [place] [address] ACETAMINOPHEN (04/04/2011 23:59 EDT) Pathologist Sig nature Acetaminophen <10.0 ug/ml [facility] Comment: ??Therapeutic range: ??10 - 30 ug/mL Possible toxicit y: ??150 - 200 ug/mL Probable toxicity: ??>200 ug/mL Specimen Blood specimen (specimen) Performing Organization Address [facility] Phon e Number [facility] [address] [place] [address] SERVICES [facility] [address] [place] [address] documented in this encounter Visit Diagnoses Diagnosis Depression Depressive disorder, not elsewhere class ified Overdose Poisoning by unspecified drug or medicin al substance documented in this encounter Administered Medications Inactive Administered Medications - up to 3 most recent administrations Medication Order MAR Action Action Date Dose Rate Site activated charcoal (EZCHAR) 25 gram Given 04/05/2011 0:12 EDT 25 g suspension 25 g 25 g, oral, NOW X1, 1 dose, On Carine 04/05/11 at 0015, STAT activated charcoal (EZCHAR) 25 gram susp ension 1 dose, Starting on Sat04/05/11 at 0002, Until 03/18 at 0012 sodium chloride 0.9 % 1,000 mL BOLUS Given 04/05/2011 0:09 EDT 1,000 mL 1,000 mL, intravenous, ONCE, 1 dose, Starting on 04/04/11 at 2344, Until Carine 04/05/11 at 0009, STAT documented in this encounter Active and Recently Administered Medications Times are shown in EDT. Scheduled Medication Order 04/03/2011 04/04/2011 04/05/2011 activated charcoal (EZCHAR) 25 gram suspension 25 g (COMPLETED) 001 (Given - Provider: Haven Herr, RN) 25 g, Oral, NOW X1, 1 dose, Carine 04/05/11 at 0015 sodium chloride 0.9 % 1,000 mL BOLUS (COMPLETED) 0009 (Given - Provider: Jocelyne Lagunas) 1,000 mL, Intravenous, ONCE, 1 dose documented in this encounter Orders EKG Orders Without Results Count Last Ordered Date Fir st Ordered Date EKG 12-LEAD 1 04/04/2011 Nursing Count Last Ordered Date First Ordered Date INSERT SALINE LOCK 1 04/04/2011 documented in this encounter Care Teams Production Hand Relationship Specialty Start Date End Date Ilan Kelly MD PCP - General 01/29/11 03/18/13 1 [facility] Level [address] [place] [address] documented as of this encounter
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
--- OUTSIDE RECORDS SUMMARY | 2022-06-05 06:51 | XMS_ITS | Encounter Summary ---
:1990 Author Organization [facility] Address [address] [place] [address] Care Team Providers Name Role Phone Ilan Kelly MD Primary Care Provider Sixto Sandoval MD Unavailable Reason for Visit Reason Comments Abdominal Pain Pt c/o severe lower abd pain , vomiting since this am. Pt states I have been dealing with abd p ain for months, and I have seen many doctors. Encounter Details Date Type Department Care Team Description 02/26/2013 Emergency [facility] Romana Ruby PA-C [address] [place] [id number] Colitis (Primary Dx) Emergency Department - Emergency, MD Pedro Pablo [facility] [address], [place] [id number] Social History Tobacco Use Types Packs/Day Years [...] Reading Time Taken Comments Blood Pressure 119/83 02/26/2013 1845 EDT Pulse 77 02/26/2013 1845 EDT Temperature 36.4 ??C (97.5 ??F) 02/26/2013 1527 EDT Respiratory Rate 16 02/26/2013 1527 EDT Oxygen Saturation 100% 02/26/2013 1527 EDT Inhaled Oxygen Concentration - - Weight 106.6 kg (235 lb) 02/26/2013 1527 EDT Height - - Body Mass Index 34.7 01/21/2013 1128 EST documented in this encounter Discharge Instructions Cm Brice - 02/26/2013 You need to bring a stool sample to the Lab for Ova and Parasite and for Fecal Culture. Bring this paper with you. Follow up with Dr. Kelly. Return to ED with worsening symptoms. Take Tylenol 650-1000mg every 8 hours NEEDED for pain. Do not exceed a total of 3000mg in a 24 hours period. Zofran 1 tab every 6 hours as needed for nausea. documented in this encounter Medications at Time of Discharge Medication Sig Dispensed Refills Start Date End Date ASPIRIN/SOD BICARB/CITRIC Take by mouth. 0 08/21/2013 ACID (MIRIAM-SELTZER ORAL) omeprazole (PRILOSEC) 20 mg Take 20 mg by 0 08/21/2013 capsule mouth 2 times daily. ondansetron (ZOFRAN-ODT) 4 Take 1 Tab by 10 Tab 0 201208/21/2013 mg disintegrating tablet mouth every 8 hours as needed for Nausea. documented as of this encounter Ordered Prescriptions Prescription Sig Dispensed Refills Start Date End Date ondansetron (ZOFRAN-ODT) 4 Take 1 Tab by 10 Tab 0 201208/21/2013 mg disintegrating tablet mouth every 8 hours as needed for Nausea. documented in this encounter Discharge Disposition Disposition Code Departure Means Destination Home or Self Care Walk-out Home documented in this encounter ED Notes Cm Ruby - 03/03/2013 0511 EDT DOS: 02/26/2013 Chief Complaint Patient presents with ??? Abdominal Pain Pt c/o severe lower abd pain, vomiting since this am. Pt states I have been dealing with abd pain for months, and I have seen many doctors. The patient is a 22 y.o. male who presents today with Abdominal Pain HPI 22-year-old male who presents with low abdominal pain times a few weeks. He also began vomiting overthe last few days. He reports persistent loose stools and watery diarrhea for a few weeks as well. He has seen his PCP as well as multiple ED visits for this. He does not have any explanation for why he is having these symptoms. States his pain is sharp, crampy and intermittent mostly in the lower abdomen. It is transverse from left lower quadrant over the right lower quadrant. He also sent a decreased appetite and has had difficulty keeping down fluids. Review of Systems Constitutional: Positive for appetite change. Negative for fever, chills, diaphoresis and fatigue. HENT: Negative for neck stiffness. Eyes: Negative for visual disturbance. Respiratory: Negative for shortness of breath. Cardiovascular: Negative for chest pain. Gastrointestinal: Positive for nausea, vomiting, abdominal pain and diarrhea. Negative for constipation and blood in stool. Genitourinary: Negative for dysuria, hematuria and flank pain. Musculoskeletal: Negative for myalgias and back pain. Skin: Negative for rash. Neurological: [...] Artery Disease Other great-uncle Vital Signs Temp: 36.4 ??C (97.5 ??F) Temp src: Tympanic Pulse: 77 Heart Rate: 73 BPM Resp: 16 SpO2: 100 % SpCO: 1 % BP: 119/83 mmHg BP Device: BP Machine Patient Position: Semi fowlers BP Cuff Location: Left arm O2 Device: None (Room air) Physical Exam Nursing note and vitals reviewed. Constitutional: He appears well-developed and well-nourished. No distress. Obese HENT: Head: Normocephalic and atraumatic. Right Ear: External ear normal. Left Ear: External ear normal. Nose: Nose normal. Mouth/Throat: No oropharyngeal exudate. Eyes: Conjunctivae are normal. Pupils are equal, round, and reactive to light. Right eye exhibits nodischarge. Left eye exhibits no discharge. Neck: Normal range of motion. Neck supple. No tracheal deviation present. Cardiovascular: Normal rate. No murmur heard. Pulmonary/Chest: Effort normal. No respiratory distress. Abdominal: Soft. Normal appearance and bowel sounds are normal. He exhibits no distension and no mass. There is tenderness in the right lower quadrant, suprapubic area and left lower quadrant. There isguarding. There is no rigidity, no rebound, no CVA tenderness, no tenderness at McBurney's point andnegative Guan's sign. No hernia. Musculoskeletal: Normal range of motion. Neurological: He is alert. He has normal strength. He is not disoriented. No sensory deficit. Skin: Skin is warm and dry. No rash noted. He is not diaphoretic. Psychiatric: He has a normal mood and affect. Radiology orders: CT ABDOMEN, PELVIS W CONTRAST CT ABDOMEN, PELVIS W CONTRAST Final result not shown here.: CT ABDOMEN AND PELVIS (Results Pending) Imaging Results CT ABDOMEN, PELVIS W CONTRAST (Final result) Result time:02/27/13 1854 Final result Narrative: CT ABDOMEN, PELVIS Feb 26, 2013 06:32:00 PM Signs and Symptoms/Comments: ABDOMINAL PAIN. LLQ x 1 week, diarrhea Comparison: CT of the abdomen obtained January 31, 2011. Technique: CT of the abdomen and pelvis with IV and rectal contrast was obtained with axial, sagittal, and coronal reformations. Findings: There is apparent long segment wall thickening of the sigmoid and descending colon without associated fat-stranding, no intra-abdominal free fluid, or free air. Areas of the distal colon distended by air demonstrate a thin wall which suggest the wall thickening is likely a result of underdistention. There is no evidence of obstruction. The liver, gallbladder, pancreas, spleen, and a kidneys, and adrenal glands are unremarkable. The abdominal aorta is normal in caliber. The urinary bladder, prostate, and seminal vesicles are within normal limits. There are small left greater than right fat-containing inguinal hernias and a small fat-containing umbilical hernia, otherwise the anterior abdominal wall and overlying soft tissues are unremarkable. There is mild levoscoliosis of the lumbar spine, otherwise the osseous structures are unremarkable. The lung bases are clear. Impression: 1. Apparent long segment thickening of the sigmoid and descending colon, likely reflecting underdistention. However, given clinical history a mild infectious colitis cannot be excluded. 2. Small bilateral fat-containing inguinal hernias. 3. Mild levoscoliosis of the lumbar spine. I have personally reviewed the images and the above interpretation and agree with the findings. Preliminary result Narrative: PRELIMINARY RESIDENT REPORT CT ABDOMEN, PELVIS Feb 26, 2013 06:32:00 PM Signs and Symptoms/Comments: ABDOMINAL PAIN. LLQ x 1 week, diarrhea Comparison: CT of the abdomen obtained January 31, 2011. Technique: CT of the abdomen and pelvis with IV and rectal contrast was obtained with axial, sagittal, and coronal reformations. Findings: There is apparent long segment wall thickening of the sigmoid and descending colon without associated fat-stranding, no intra-abdominal free fluid, or free air. Areas of the distal colon distended by air demonstrate a thin wall which suggest the wall thickening is likely a result of underdistention. There is no evidence of obstruction. The liver, gallbladder, pancreas, spleen, and a kidneys, and adrenal glands are unremarkable. The abdominal aorta is normal in caliber. The urinary bladder, prostate, and seminal vesicles are within normal limits. There are small left greater than right fat-containing inguinal hernias and a small fat-containing umbilical hernia, otherwise the anterior abdominal wall and overlying soft tissues are unremarkable. There is mild levoscoliosis of the lumbar spine, otherwise the osseous structures are unremarkable. The lung bases are clear. Impression: 1. Apparent long segment thickening of the sigmoid and descending colon, likely reflecting underdistention. However, given clinical history a mild infectious colitis cannot be excluded. 2. Small bilateral fat-containing inguinal hernias. 3. Mild levoscoliosis of the lumbar spine. I have personally reviewed the images and the above interpretation and agree with the findings. Preliminary result Narrative: PRELIMINARY RESIDENT REPORT CT ABDOMEN, PELVIS Feb 26, 2013 06:32:00 PM Signs and Symptoms/Comments: ABDOMINAL PAIN. LLQ x 1 week, diarrhea Comparison: CT of the abdomen obtained January 31, 2011. Technique: CT of the abdomen and pelvis with IV and rectal contrast was obtained with axial, sagittal, and coronal reformations. Findings: There is apparent long segment wall thickening of the sigmoid and descending colon without associated fat-stranding, no intra-abdominal free fluid, or free air. Areas of the distal colon distended by air demonstrate a thin wall which suggest the wall thickening is likely a result of underdistention. There is no evidence of obstruction. The liver, gallbladder, pancreas, spleen, and a kidneys, and adrenal glands are unremarkable. The abdominal aorta is normal in caliber. The urinary bladder, prostate, and seminal vesicles are within normal limits. There are small left greater than right fat-containing inguinal hernias and a small fat-containing umbilical hernia, otherwise the anterior abdominal wall and overlying soft tissues are unremarkable. There is mild levoscoliosis of the lumbar spine, otherwise the osseous structures are unremarkable. The lung bases are clear. Impression: 1. Apparent long segment thickening of the sigmoid and descending colon, likely reflecting underdistention. However, given clinical history a mild infectious colitis cannot be excluded. 2. Small bilateral fat-containing inguinal hernias. 3. Mild levoscoliosis of the lumbar spine. Lab Results BUN (Final result) Component (Lab Inquiry) Result Time BUN 02/26/131711 15 CREATININE (Final result) Component (Lab Inquiry) Result Time Creatinine GFR, Calculated 02/26/131711 0.84 >60 ELECTROLYTES (Final result) Abnormal Component (Lab Inquiry) Result Time Sodium Potassium Chloride CO2 02/26/131711 139 3.7 104 20 (L) GLUCOSE, SERUM (Final result) Component (Lab Inquiry) Result Time Glucose, Serum 02/26/132 84 LIPASE (Final result) Component (Lab Inquiry) Result Time LIPASE 02/26/132 55 LIVER FUNCTION TESTS (Final result) Abnormal Component (Lab Inquiry) Result Time Albumin Total Protein Total Alkaline Phosphatase ALT AST 02/26/131711 5.0 (H) 7.8 81 89 (H) 35 Result Time Unconjugated Bilirubin Conjugated Bilirubin Bilirubin, Total 02/26/131711 0.5 0.0 0.7 POCT URINE DIPSTICK (Final result) Abnormal Component (Lab Inquiry) Result Time Color Clarity, UA Glucose Bilirubin Ketones 02/26/131708 YELLOW Clear Neg 1+ (A) >=3+ (A) Result Time Specific [place] Blood pH Protein Urobilinogen 02/26/131708 1.025 1+ (A) 6.0 Neg 0.2 Result Time Nitrite Leuk Esterase TECH ID 02/26/131708 Neg Neg [id number] Test performed at Emergency Department HEMAGRAM AND DIFFERENTIAL (Final result) Result time:02/26/131701 DIFFERENTIAL (Final result) Abnormal Component (Lab Inquiry) Result Time Neutrophils Lymphocytes Monocytes Eosinophils Basophils 02/26/131701 84.5 (H) 9.1 (L) 5.7 0.5 (L) 0.2 Result Time ABS Neutrophils ABS Lymphs ABS Monocytes ABS Eosinophils ABS Basophils 02/26/131701 13.30 (H) 1.43 0.90 (H) 0.08 0.03 Result Time Type of Diff: 02/26/131701 Automated HEMAGRAM (Final result) Abnormal Component (Lab Inquiry) Result Time WBC RBC Hemoglobin HCT MCV 02/26/131701 15.74 (H) 5.09 15.8 44.5 87 Result Time MCH MCHC PLT RDW-CV 02/26/131701 31.1 35.6 179 13.7 Procedures ED Course: A medical screening exam was performed. 22-year-old male with multiple weeks of lower abdominal pain, nausea, vomiting and diarrhea Afebrile Leukocytosis with mild left shift CT abdomen and pelvis shows evidence of colitis No bloody stools, less likely ulcerative colitis Recommended stool culture, patient unable to give stool while here. Given discharge instructions to bring stool sample to lab for evaluation. Patient feeling better after IV fluids, Zofran, morphine He is instructed to followup with his PCP this week as well Disposition: Discharged The patient's pain was managed to an adequate level weighing risk vs. benefit of further medications. Upon departure from the Emergency Department, the patient's pain was 1 on a zero to ten scale. Condition at departure from the Emergency Department: Improved Discharge Prescriptions New Prescriptions ONDANSETRON (ZOFRAN-ODT) 4 MG DISINTEGRATING TABLET Take 1 Tab by mouth every 8 hours as needed forNausea. MDM Number of Diagnoses or Management Options Colitis: new, needed workup Diagnosis management comments: 5 Amount and/or Complexity of Data Reviewed Clinical lab tests: ordered and reviewed Tests in the radiology section of CPT??: ordered and reviewed Review and summarize past medical records: yes Independent visualization of images, tracings, or specimens: yes Final diagnoses: Colitis PCP: MD Josué Blount was available for supervision. 03/03/2013 5:11 olf Donahue RN - 02/26/2013 1712 EDT CRITICAL VALUE - 4+ Ketones in urine. Cm Ruby notified. avid Martinez RN - 02/26/2013 1531 EDT Placed pt in guerra bed, provided warm blankets. documented in this encounter Miscellaneous Notes Scanned Note-Null - JALOUSIE INSTALLER, SCAN 2 - 03/02/2013 1015 EDT documented in this encounter Plan of Treatment Not on filedocumented as of this encounter Procedures Procedure Name Priority Date/Time Associated Comments Diagnosis CT ABDOMEN, PELVIS W 02/26/2013 18:32 Res ults for this CONTRAST EDT procedure are i n the results section. POCT URINE DIPSTICK, STAT 02/26/2013 17:02 Res ults for this CLINITEK EDT procedure are i n the results section. DIFFERENTIAL Routine 02/26/2013 16:39 Results for this EDT procedure are i n the results section. COMPLETE BLOOD COUNT Routine 02/26/2013 16:39 Res ults for this EDT procedure are i n the results section. COMPLETE BLOOD COUNT STAT 02/26/2013 16:39 AND DIFFERENTIAL EDT BUN STAT 02/26/2013 16:39 Results for this EDT procedure are i n the results section. LIPASE Routine 02/26/2013 16:39 Results for this EDT procedure are i n the results section. GLUCOSE, SERUM STAT 02/26/2013 16:39 Results f or this EDT procedure are i n the results section. CREATININE STAT 02/26/2013 16:39 Results for this EDT procedure are i n the results section. HEPATIC FUNCTION STAT 02/26/2013 16:39 Results for this PANEL (ALB,ALK EDT procedure are in PHOS,ALT,AST,DBIL,TOT the re sults JULIOCESAR,TOT PROT) section. ELECTROLYTES STAT 02/26/2013 16:39 Results for this EDT procedure are i n the results section. documented in this encounter Results CT ABDOMEN, PELVIS W CONTRAST (02/26/2013 18:32 EDT) Anatomical Region Laterality Modality Other Specimen Narrative [facility] - 02/27/2013 13:[address] ABDOMEN, PELVIS ??Feb 26, 2013 06:32:00 PM Signs and Symptoms/Comments: ??ABDOMINAL PAIN. LLQ x 1 week, diarrhea Comparison: CT of the abdomen obtained [facility] 2010. Technique: CT of the abdomen and pelvis with IV and rectal contrast was obtained with axial, sagittal, and c oronal reformations. Findings: There is apparent long segment wall thickening of the sigmoid and descending colon without ass ociated fat-stranding, no intra-abdominal free fluid, or free air. Areas of the distal colon distended by air demonstrate a thin wall which suggest the wall thickening is likely a result of underdi stention. There is no evidence of obstruction. The liver, gallbladder, pancreas, spleen , and a kidneys, and adrenal glands are unremarkable. The abdominal a diandra is normal in caliber. The urinary bladder, prostate, and semin al vesicles are within normal limits. There are small left greater yazmin n right fat-containing inguinal hernias and a small fat-contain ing umbilical hernia, otherwise the anterior abdominal wall an d overlying soft tissues are unremarkable. There is mild levoscoliosi s of the lumbar spine, otherwise the osseous structures are unr emarkable. The lung bases are clear. Impression: 1. Apparent long segment thickening of t he sigmoid and descending colon, likely reflecting underdistention . However, given clinical history a mild infectious colitis cannot be excluded. 2. Small bilateral fat-containing inguin al hernias. 3. Mild levoscoliosis of the lumbar spin e. I have personally reviewed the images an d the above interpretation and agree with the findings. Procedure Note Jules Guerrero MD - 02/27/2013 CT ABDOMEN, PELVIS Feb 26, 2013 06:32:00 PM Signs and Symptoms/Comments: ABDOMINAL P AIN. LLQ x 1 week, diarrhea Comparison: CT of the abdomen obtained [facility] 2010. Technique: CT of the abdomen and pelvis with IV and rectal contrast was obtained with axial, sagittal, and c oronal reformations. Findings: There is apparent long segment wall thickening of the sigmoid and descending colon without ass ociated fat-stranding, no intra-abdominal free fluid, or free air. Areas of the distal colon distended by air demonstrate a thin wall which suggest the wall thickening is likely a result of underdi stention. There is no evidence of obstruction. The liver, gallbladder, pancreas, spleen , and a kidneys, and adrenal glands are unremarkable. The abdominal a diandra is normal in caliber. The urinary bladder, prostate, and semin al vesicles are within normal limits. There are small left greater yazmin n right fat-containing inguinal hernias and a small fat-contain ing umbilical hernia, otherwise the anterior abdominal wall an d overlying soft tissues are unremarkable. There is mild levoscoliosi s of the lumbar spine, otherwise the osseous structures are unr emarkable. The lung bases are clear. Impression: 1. Apparent long segment thickening of t he sigmoid and descending colon, likely reflecting underdistention . However, given clinical history a mild infectious colitis cannot be excluded. 2. Small bilateral fat-containing inguin al hernias. 3. Mild levoscoliosis of the lumbar spin e. I have personally reviewed the images an d the above interpretation and agree with the findings. Performing Organization Address City/State/ZIP Code Phon e Number [facility] (ABNORMAL) POCT URINE DIPSTICK (02/26/2013 17:02 EDT) Color YELLOW [facility] Clarity, UA Clear [facility] Glucose Neg Neg [facility] Bilirubin 1+ (A) Neg [facility] Ketones >=3+ (A) Neg [facility] Specific [place] 1.025 1.001 - 1.035 [facility] Blood 1+ (A) Neg [facility] pH 6.0 4.6 - 8.0 [facility] Protein Neg Neg [facility] Urobilinogen 0.2 0.2 - 1.0 [facility] E.U./dl LAB Nitrite Neg Neg [facility] Leuk Esterase Neg Neg [facility] wireless sales expert ID [id number]: [facility] Test performed at LAB Emergency Department Specimen Urine (substance) Performing Organization Address City/[facility]/ZIP Code Phon e Number [facility] [address] [place] [address] SERVICES [facility] [address] [place] [address] (ABNORMAL) DIFFERENTIAL (02/26/2013 16:39 EDT) Pathologist Sig nature Neutrophils 84.5 (H) 45.5 - 79.7 % [facility] Lymphocytes 9.1 (L) 15.0 - 46.8 % [facility] Monocytes 5.7 1.8 - 12.0 % [facility] Eosinophils 0.5 (L) 0.6 - 6.9 % [facility] Basophils 0.2 0.2 - 1.4 % [facility] ABS Neutrophils 13.30 (H) 2.20 - 8.85 K/cmm [facility] ABS Lymphs 1.43 1.09 - 3.30 K/cmm [facility] ABS Monocytes 0.90 (H) 0.1 - 0.8 K/cmm [facility] ABS Eosinophils 0.08 0.03 - 0.61 K/cmm [facility] ABS Basophils 0.03 0.01 - 0.11 K/cmm [facility] Type of Diff: Automated [facility] Specimen Performing Organization Address City/[facility]/ZIP Code Phon e Number [facility] [address] [place] [address] SERVICES [facility] [address] [place] [address] (ABNORMAL) HEMAGRAM (02/26/2013 16:39 EDT) Pathologist Sig nature WBC 15.74 (H) 4.0 - 10.4 K/cmm [facility] RBC 5.09 4.36 - 5.78 M/cmm [facility] Hemoglobin 15.8 13.8 - 17.3 gm/dl [facility] HCT 44.5 39.5 - 50.2 % [facility] MCV 87 81 - 95 fl [facility] MCH 31.1 27.6 - 33.0 pg [facility] MCHC 35.6 32.8 - 36.4 gm/dl [facility] PLT 179 141 - 320 K/cmm [facility] RDW-CV 13.7 11.8 - 14.1 % [facility] Specimen Performing Organization Address [facility] Phon e Number [facility] [address] [place] [address] SERVICES [facility] [address] [place] [address] (ABNORMAL) LIVER FUNCTION TESTS (02/26/2013 16:39 EDT) Pathologist Sig nature Albumin 5.0 (H) 3.4 - 4.9 g/dl [facility] Total Protein 7.8 6.5 - 8.3 g/dl [facility] Total Alkaline 81 38 - 126 U/L [facility] Phosphatase ALT 89 (H) 21 - 72 U/L [facility] AST 35 15 - 46 U/L [facility] Unconjugated Bilirubin 0.5 0.1 - 1.1 mg/dl [facility] Conjugated Bilirubin 0.0 0.0 - 0.3 mg/dl [facility] B Bilirubin, Total 0.7 0.2 - 1.3 mg/dl [facility] Specimen Blood specimen (specimen) Performing Organization Address City/[facility]/ZIP Code Phon e Number [facility] [address] [place] [address] SERVICES [facility] [address] [place] [address] LIPASE (02/26/2013 16:39 EDT) Pathologist Sig nature Lipase 55 0 - 250 U/L [facility] Specimen Blood specimen (specimen) Performing Organization Address City/[facility]/ZIP [facility] Phon e Number [facility] [address] [place] [address] SERVICES [facility] [address] [place] [address] GLUCOSE, SERUM (02/26/2013 16:39 EDT) Pathologist Sig nature Glucose, Serum 84 70 - 100 mg/dl [facility] Specimen Blood specimen (specimen) Performing Organization Address [facility]/ZIP Code Phon e Number [facility] [address] [place] [address] SERVICES [facility] [address] [place] [address] (ABNORMAL) ELECTROLYTES (02/26/2013 16:39 EDT) Pathologist Sig nature Sodium 139 136 - 145 mEq/L [facility] Potassium 3.7 3.5 - 5.0 mEq/L [facility] Chloride 104 96 - 110 mEq/L [facility] CO2 20 (L) 24 - 32 mEq/L [facility] Specimen Blood specimen (specimen) Performing Organization Address [facility] Phon e Number [facility] [address] [place] [address] SERVICES [facility] [address] [place] [address] CREATININE (02/26/2013 16:39 EDT) Pathologist Sig nature Creatinine 0.84 0.66 - 1.25 mg/dl [facility] GFR, Calculated >60 >60 ml/min/1.73m2 [facility] Specimen Blood specimen (specimen) Performing Organization Address [facility]/ZIP Code Phon e Number [facility] [address] [place] [address] SERVICES [facility] [address] [place] [address] BUN (02/26/2013 16:39 EDT) Pathologist Sig nature BUN 15 10 - 26 mg/dl [facility] Specimen Blood specimen (specimen) Performing Organization Address [facility]/ZIP [facility] Phon e Number [facility] [address] [place] [address] SERVICES [facility] [address] [place] [address] documented in this encounter Visit Diagnoses Diagnosis Colitis - Primary Other and unspecified noninfectious mando roenteritis and colitis documented in this encounter Administered Medications Inactive Administered Medications - up to 3 most recent administrations Medication Order MAR Action Action Date Dose Rate Site morphine injection 5 mg Given 02/26/2013 17:02 EDT 5 mg 5 mg, intravenous, NOW X1, 1 dose, On Carine 02/26/13 at 1645, STAT ondansetron (PF) (ZOFRAN) injection 4 mg Given 02/26/2013 17:02 EDT 4 mg 4 mg, intravenous, NOW X1, 1 dose, On Carine 02/26/13 at 1645, STAT ondansetron 4 mg ODT tab STARTER Go-Pack Dispense 02/26/2013 19: 53 EDT 1 Package PACK 1 Package, oral, NOW X1, 1 dose, On Carine 02/26/13 at 2015, STAT sodium chloride (NS) 0.9 % 1,000 mL BOLU S Given 02/26/2013 17:02 EDT 1,000 mL 1,000 mL, intravenous, ONCE, 1 dose, Starting on Carine 02/26/13 at 1645, Until Carine 02/26/13 at 1743, STAT sodium chloride (NS) 0.9 % 1,000 mL BOLU S Given 02/26/2013 17:43 EDT 1,000 mL 1,000 mL, intravenous, ONCE, 1 dose, Starting on Carine 02/26/13 at 1745, Until Carine 02/26/13 at 1844, STAT sodium chloride (NS) 0.9 % 1,000 mL BOLU S Given 02/26/2013 18:44 EDT 1,000 mL 1,000 mL, intravenous, ONCE, 1 dose, Starting on Carine 02/26/13 at 1900, Until Carine 02/26/13 at 1924, STAT documented in this encounter Active and Recently Administered Medications Times are shown in EDT. Scheduled Medication Order 02/24/2013 02/25/2013 02/26/2013 morphine injection 5 mg (COMPLETED) 1701 (Given - Provider: Wolf Garcias RN) 5 mg, intravenous, NOW X1, 1 dose, Carine 02/26/13 at 1645 ondansetron (PF) (ZOFRAN) injection 4 mg (COMPLETED) 170 (Given - Provider: Wolf Garcias RN) 4 mg, intravenous, NOW X1, 1 dose, Carine 02/26/13 at 1645 ondansetron 4 mg ODT tab STARTER PACK (COMPLETED) 1952 (Go-Pack Dispense - Provider: Wolf Garcias RN) 1 Package, oral, NOW X1, 1 dose, Carine 02/26/13 at 2015, STAT sodium chloride (NS) 0.9 % 1,000 mL BOLUS (COMPLETED) 1702 (Given - Provider: Wolf Garcias, RN)1743 (Completed - Provider: Wolf Garcias, RN) 1,000 mL, intravenous, ONCE, 1 dose, First dose on Carine 02/26/13 a t 1645 sodium chloride (NS) 0.9 % 1,000 mL BOLUS (COMPLETED) 1743 (Given - Provider: Wolf Garcias, RN)1844 (Completed - Provider: Wolf Garcias, RN) 1,000 mL, intravenous, ONCE, 1 dose, First dose on Carine 02/26/13 a t 1800 sodium chloride (NS) 0.9 % 1,000 mL BOLUS (COMPLETED) 1844 (Given - Provider: Wolf Garcias, KEANU)1924 (Completed - Provider: Jessica Longoria) 1,000 mL, intravenous, ONCE, 1 dose, First dose on Carine 02/26/13 a t 1900 documented in this encounter Orders Nursing Count Last Ordered Date First Ordered Date INSERT PERIPHERAL IV 1 02/26/2013 documented in this encounter Care Teams Automobile Brakes Bonder Relationship Specialty Start Date End Date Ilan Kelly MD PCP - General 01/29/11 03/18/13 [facility] [address] [place] [phone] Sixto Sandoval MD PCP - Alternate 01/05/13 12/25/15 [address] [place] [address] documented as of this encounter
--- OUTSIDE RECORDS SUMMARY | 2022-06-05 06:51 | XMS_ITS | Encounter Summary ---
:1990 Author Organization [facility] Address [address] [place] [address] Care Team Providers Name Role Phone Ilan Kelly MD Primary Care Provider Sixto Sandoval MD Unavailable Reason for Visit Reason Comments Hospital Discharge Follow Up Encounter Details Date Type Department Care Team Description 03/04/[address] [facility] Unknown, Prov MD raghavendra Abdominal pain Adult Primary Care - Pedro Canseco MD (Primary Dx) [place] Marina Odell MD [address] [place] [address] Social History Tobacco Use Types Packs/Day [...] Sign Reading Time Taken Comments Blood Pressure 122/60 03/04/2013 1507 EDT Pulse 84 03/04/2013 1507 EDT Temperature 36.5 ??C (97.7 ??F) 03/04/2013 1507 EDT Respiratory Rate 16 03/04/2013 1507 EDT Oxygen Saturation - - Inhaled Oxygen Concentration - - Weight 99.8 kg (220 lb) 03/04/2013 1507 EDT Height - - Body Mass Index 32.49 01/21/2013 1128 EST documented in this encounter Discharge Disposition Disposition Code Departure Means Destination Auto Discharge documented in this encounter Progress Notes Marina Odell MD - 03/04/2013 1558 EDT Subjective: Patient ID: Zeeshan Gonzalez Jr. is an 22 y.o. male. Chief Complaint Patient presents with ??? Hospital Discharge Follow Up HPI Mr. Gonzalez is a 22 year old gentleman who presents with abdominal pain for the past several months. He has been several times in resident clinic and the emergency room with a fairly extensive work up including abdominal Ct scan, US of the biliary system and liver function test. Work up thus far has been unrevealing. He did have a leukocytosis on presentation to the ED. He continues to report alternating periods of diarrhea and constipation. He denies any blood in the stool or pain with defecation. His abdominal pain changes location and comes and goes throughout the day. It is exacerbated by dairy products and foods high in fat. It is relieved by smoking cigarettes and marijuana. 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 He has occasional nausea but has not experienced any vomiting recently. He believes he has lost several pounds due to limiting fast food. Patient Active Problem List Diagnoses ??? Other activity ??? Obesity ??? Acanthosis nigricans ??? Depression ??? Hypertension ??? Asthma ??? Metabolic syndrome X ??? Abdominal pain Outpatient Prescriptions Marked as Taking for the 03/04/13 encounter (Office Visit) with Marina Odell MD Medication Sig Dispense Refill ??? ondansetron (ZOFRAN-ODT) 4 mg disintegrating tablet Take 1 Tab by mouth every 8 hours as needed for Nausea. 10 Tab 0 ??? omeprazole (PRILOSEC) 20 mg capsule Take 20 mg by mouth 2 times daily. ??? ASPIRIN/SOD BICARB/CITRIC ACID (MIRIAM-SELTZER ORAL) Take by mouth. Review of Systems Constitutional: Positive for weight loss. Negative for fever, chills, malaise/fatigue and diaphoresis. HENT: Negative for neck pain. Eyes: Negative for blurred vision. Respiratory: Negative for shortness of breath. Cardiovascular: Negative for chest pain. Gastrointestinal: Positive for heartburn, nausea, abdominal pain, diarrhea and constipation. Negative for vomiting, blood in stool and melena. Genitourinary: Negative for dysuria and urgency. Musculoskeletal: Negative for myalgias. Neurological: Negative for dizziness, tingling, weakness and headaches. - See HPI Objective: BP 122/60 Pulse 84 Temp(Src) 36.5 ??C (97.7 ??F) (Tympanic) Resp 16 Wt 99.791 kg (220 lb) Physical Exam Constitutional: He is oriented to person, place, and time. He appears well- developed and well-nourished. HENT: Head: Normocephalic and atraumatic. Cardiovascular: Normal rate and regular rhythm. Pulmonary/Chest: Effort normal and breath sounds normal. Abdominal: Soft. Bowel sounds are normal. He exhibits no distension and no mass. There is no tenderness. There is no rebound and no guarding. Neurological: He is alert and oriented to person, place, and time. Skin: Skin is warm and dry. Imaging Abdominal CT scan 1. Apparent long segment thickening of the sigmoid and descending colon, likely reflecting underdistention. However, given clinical history a mild infectious colitis cannot be excluded. 2. Small bilateral fat-containing inguinal hernias. 3. Mild levoscoliosis of the lumbar spine. US RUQ Impression: 1. Mild hepatosteatosis. Assessment / Plan: Mr. Gonzalez is a 22 year old gentleman presenting with persistent abdominal pain with alternating constipation and diarrhea for the past several months. Work up thus far has been unrevealing. Most likelydiagnosis is function bowel disorder (IBS) given alternating periods of diarrhea and constipation, intermittent pain and lack of constitutional symptoms. Unlikely to represent systemic illness such as inflammatory bowel disease, no weight loss or constitutional symptoms, no blood in the stool. Will hold off on further work up such as colonoscopy unless new worrisome symptoms present. Abdominal pain: most likely functional bowel disorder -recommend starting lactaid pills given hx of exacerbation with dairy -continue food diary with trial of elimination -obtain stool sample for stool ova and parasite (not likely to be high yield, was ordered previouslybut stool sample never submitted -explained functional bowel disorder to patient and that symptoms can be related to stress or certain foods and that no serious underlying process is the cause of symptoms. Also explained symptoms can wax and wane with alternating constipation and diarrhea. 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 Some element of abdominal pain may be related to current job in the [employer] food industry. Patient seen and discussed with Dr. Harleen Odell MD 03/04/2013 17:07 ATTENDING ATTESTATION STATEMENT: I personally saw and examined this patient with the resident at thetime of the visit and agree with the resident's assessment and treatment plan as documented. Suspectmost recent episode an intercurrent GE. Pedro Canseco MD 03/04/13 documented in this encounter Plan of Treatment Not on filedocumented as of this encounter Visit Diagnoses Diagnosis Abdominal pain - Primary Abdominal pain, unspecified site documented in this encounter Care Teams Groundman/Lineman Relationship Specialty Start Date End Date Ilan Kelly MD PCP - General 01/29/11 03/18/13 1 [facility] [address] [place] [address] Sixto Sandoval MD PCP - Alternate 01/05/13 12/25/15 [address] [place] [address] documented as of this encounter
--- OUTSIDE RECORDS SUMMARY | 2022-06-05 06:51 | XMS_ITS | Encounter Summary ---
:1990 Author Organization [facility] Address [address] [place] [address] Care Team Providers Name Role Phone Ilan Kelly MD Primary Care Provider Reason for Visit Reason Onset Date Comments Appointment Related 02/15/2011 patient no-showed fo r 02/15/11 P.T. appt Encounter Details Date Type Department Care Team Description 02/15/2011 Telephone [facility] Carlos Jason, Appoint ment Related Rehabilitation Therapy - (mercedez mercado no-showed for Medical Office Build ing 02/15/11 P.T. appt) [address] [place], [place] [id number] Social History Tobacco Use Types Packs/Day Years [...] Notes Telephone Encounter - Salome Gomez - 02/15/2011 1005 EDT The patient no-showed for today's 02/15/11 Physical Therapy appointment. I have called him to try to reschedule. When I asked him if he wanted to reschedule, he stated NO and hung up the phone. He doesn't have anymore appointments that are scheduled. documented in this encounter Plan of Treatment Not on filedocumented as of this encounter Visit Diagnoses Not on filedocumented in this encounter Care Teams Telegraphic Typewriter Installer Relationship Specialty Start Date End Date Ilan Kelly MD PCP - General 01/29/11 03/18/[address] [place] [address] [address] [place] [phone] documented as of this encounter
--- OUTSIDE RECORDS SUMMARY | 2022-06-05 06:51 | XMS_ITS | Encounter Summary ---
:1990 Author Organization [facility] Address [address] [place] [address] Care Team Providers Name Role Phone Sixto Sandoval MD Unavailable Wolf Bethea MD MPH Primary Care Provider [phone] Reason for Visit Reason Comments Emesis coffee colored and blood Facial Pain Siuns pain and blood from no se Pain heaad, neck and back pain Encounter Details Date Type Department Care Team Description 11/07/2013 Office Visit [facility] Gisella Reardon sto aimee (Primary Dx); Adult Primary Care - MD Jenny Haque emesis [address] [phone] [address] Social History Tobacco Use Types Packs/Day Years [...] Sign Reading Time Taken Comments Blood Pressure 136/68 11/07/2013 1308 EST right, large cuff Pulse 96 11/07/2013 1308 EST reg Temperature 37.2 ??C (98.9 ??F) 11/07/2013 1308 EST Respiratory Rate 16 11/07/2013 1308 EST Oxygen Saturation - - Inhaled Oxygen Concentration - - Weight 99.8 kg (220 lb) 11/07/2013 1308 EST without hayley es Height 172.7 cm (5' 8) 11/07/2013 1308 EST per pt Body Mass Index 33.45 11/07/2013 1308 EST documented in this encounter Discharge Diagnoses Diagnosis 792.1 ABN FIND-STOOL CONTENTS-OCC BLOOD[ ICD-9-CM] 578.0 HEMATEMESIS[ICD-9-CM] documented in this encounter Progress Notes Gisella Reardon MD - 11/07/2013 1945 EST Zeeshan Gonzalez Jr. is a 23 y.o. male with the following Problems and Medications. Patient Active Problem List Diagnosis ??? Other activity ??? Obesity ??? Acanthosis nigricans ??? Depression ??? Hypertension ??? Asthma ??? Metabolic syndrome X ??? Abdominal pain No current outpatient prescriptions on file. No current facility-administered medications for this visit. SINUS PAIN/MELENA/BLOODY EMESIS SUBJECTIVE: Zeeshan began to feel a headache yesterday and at 3:30 this morning awoke and vomited twice. He noted that both times, at least half of his vomit was bloody. He has not vomited since and his nausea hasimproved. He does report that yesterday he noted that he had dark colored stool. He is now complaining of sinus and facial pain but he is not having any nasal drainage. Zeeshan does note when he spits up his post nasal drip drainage that it is sometimes bloody and he is wondering if this could have made his vomit appear bloody. He denies feeling lightheaded or dizzy. He and his mom say that he has a history of colitis but this is not noted on his problem list. He says he used to take Prilosec for this problem but he can't afford to take Prilosec. He is supposed to go to work later today but his mother feels strongly that he shouldn't if he is feeling sick. OBJECTIVE: BP 136/68 Pulse 96 Temp(Src) 37.2 ??C (98.9 ??F) (Tympanic) Resp 16 Ht 172.7 cm (68) Wt 99.791 kg (220 lb) BMI 33.46 kg/m2 Mild distress but pleasant and cooperative. Sinuses are diffusely tender. The neck is supple and free of adenopathy or masses, the thyroid is normal without enlargement or nodules. Oropharynx shows some mild erythema. The abdomen is soft without tenderness, guarding, mass, rebound or organomegaly. Bowel sounds are normal. No CVA tenderness or inguinal adenopathy noted. Rectal exam shows heme-negative brown stool. ASSESSMENT: Probable viral illness causing headache, sinus pain and vomiting. It is hard to know what to make ofhis reports of bloody emesis and black stool. Stool is heme- negative today and we will check a hemogram to make sure he has not had any blood loss. PLAN: Hemogram today. I will contact him if the results are abnormal. I suggested rest, fluids, and Tylenol for his headache. It sounds like his nausea and vomiting have subsided for now but if they recur, he will contact us. Note was given to him to stay out of work today. documented in this encounter Plan of Treatment Not on filedocumented as of this encounter Procedures Procedure Name Priority Date/Time Associated Diagnosis Comme nts COMPLETE BLOOD Routine 11/07/2013 13:50 Bloody emesis Results for this COUNT EST procedure are i n the results section. POCT OCCULT BLOOD Routine 11/07/2013 13:45 Black stool Result s for this SLIDE TEST X 3 EST procedure are in the results section. documented in this encounter Results (ABNORMAL) HEMAGRAM (11/07/2013 13:50 EST) Pathologist Sig nature WBC 15.41 (H) 4.0 - 10.4 K/cmm [facility] RBC 5.07 4.36 - 5.78 M/cmm [facility] Hemoglobin 16.1 13.8 - 17.3 gm/dl [facility] HCT 45.0 39.5 - 50.2 % [facility] MCV 89 81 - 95 fl [facility] MCH 31.7 27.6 - 33.0 pg [facility] MCHC 35.8 32.8 - 36.4 gm/dl [facility] PLT 157 141 - 320 K/cmm [facility] RDW-CV 13.7 11.8 - 14.1 % [facility] Specimen Blood specimen (specimen) Performing Organization Address City/State/ZIP Code Phon e Number [facility] [address] [place] [address] SERVICES [facility] [address] [place] [address] POCT OCCULT BLOOD SLIDE TEST (11/07/2013 13:45 EST) Pathologist Sig nature Developer Lot Number [id number] POINT OF CARE Developer Expiration Date 04/01 POINT OF CARE Card/Slide Lot Number #1 [id number] POINT OF CARE Card/Slide Expiration Date #1 10/02 POINT OF CA RE Occult Blood Testing, POC #1 Negative Negative POINT OF CAR E Positive Control Blue? #1 Yes POINT OF CARE Negative Control Clear? #1 Yes POINT OF CARE Card/Slide Lot Number #2 na POINT OF CARE Card/Slide Expiration Date #2 POINT OF CA RE Occult Blood Testing, POC #2 POINT OF CAR E Positive Control Blue? #2 POINT OF CARE Negative Control Clear? #2 POINT OF CARE Card/Slide Lot Number #3 na POINT OF CARE Card/Slide Expiration Date #3 POINT OF CA RE Occult Blood Testing, POC #3 POINT OF CAR E Positive Control Blue? #3 POINT OF CARE Negative Control Clear? #3 POINT OF CARE Specimen Stool specimen (specimen) Performing Organization Address City/[facility] Phon e Number [facility] POINT OF CARE POINT OF CARE documented in this encounter Visit Diagnoses Diagnosis Black stool - Primary Nonspecific abnormal finding in stool co ntents Bloody emesis Hematemesis documented in this encounter Care Teams Cook Cashier Food Prep Relationship Specialty Start Date End Date Sixto Sandoval MD PCP - Alternate 01/05/13 12/25/15 [address] [place] [address] Wolf Bethea MD MPH PCP - General 03/19/13 06/03/14 1 [facility] [address] [place] [phone] documented as of this encounter
--- OUTSIDE RECORDS SUMMARY | 2022-06-05 06:51 | XMS_ITS | Encounter Summary ---
:1990 Author Organization [facility] Address [address] [place] [address] Care Team Providers Name Role Phone Ilan Kelly MD Primary Care Provider Reason for Visit Reason Onset Date Comments New Patient Visit 03/09/2011 Patient's has recurr ent pneumonia. X-Ray and CT on file at [facility]. Notes are i n prism. Encounter Details Date Type Department Care Team Description 03/09/2011 Telephone [facility] Ilan Kelly Judy ent Visit Pulmonology & Critical MD Bashir (Patient's has [address] recurrent pneumonia. [address] [facility] X-Ray [place] [address] Level 1 at [facility]. Notes are in [phone] [place], [place] prism. ) [phone] (Wo rk) Social History Tobacco Use Types [...] this encounter Miscellaneous Notes Telephone Encounter - Chelle Mary - 03/14/2011 1502 EDT Appointment scheduled with L Sender June 12 at 845, PFT at 815. NPV letter sent and PCP notified 03-14. LDD/03-14 documented in this encounter Plan of Treatment Not on filedocumented as of this encounter Visit Diagnoses Not on filedocumented in this encounter Care Teams Dog Boarder Relationship Specialty Start Date End Date Ilan Kelly MD PCP - General 01/29/11 03/18/13 1 [facility] [address] [place] [address] documented as of this encounter
--- OUTSIDE RECORDS SUMMARY | 2022-06-05 06:51 | XMS_ITS | Encounter Summary ---
:1990 Author Organization [facility] Address [address] [place] [address] Care Team Providers Name Role Phone Ilan Kelly MD Primary Care Provider Sixto Sandoval MD Unavailable Encounter Details Date Type Department Care Team Description 01/29/2013 Phlebotomy Only [facility] - Ultrasound Technician, Abd ominal pain [facility] [address] [place] [address] Social History Tobacco Use Types Packs/Day Years [...] Name Priority Date/Time Associated Diagnosis Comme nts LIPASE Routine 01/29/2013 17:01 Abdominal pain Results f or this EDT procedure are i n the results section. GGT Routine 01/29/2013 17:01 Abdominal pain Results f or this EDT procedure are i n the results section. HEPATIC FUNCTION Routine 01/29/2013 17:01 Abdominal pain Resul ts for this PANEL (ALB,ALK EDT procedure are in PHOS,ALT,AST,DBIL,T the resu lts OT JULIOCESAR,TOT PROT) section. documented in this encounter Results GGT (01/29/2013 17:01 EDT) Pathologist Sig nature GGT 38 15 - 73 U/L [facility] Specimen Blood specimen (specimen) Performing Organization Address City/[facility]/ZIP Code Phon e Number [facility] [address] [place] [address] SERVICES [facility] [address] [place] [address] LIPASE (01/29/2013 17:01 EDT) Pathologist Sig nature Lipase 53 0 - 250 U/L [facility] Specimen Blood specimen (specimen) Performing Organization Address [facility] Phon e Number [facility] [address] [place] [address] SERVICES [facility] [address] [place] [address] (ABNORMAL) LIVER FUNCTION TESTS (01/29/2013 17:01 EDT) Pathologist Sig nature Albumin 4.7 3.4 - 4.9 g/dl [facility] Total Protein 7.6 6.5 - 8.3 g/dl [facility] Total Alkaline 79 38 - 126 U/L [facility] Phosphatase ALT 76 (H) 21 - 72 U/L [facility] AST 38 15 - 46 U/L [facility] Unconjugated Bilirubin 0.2 0.1 - 1.1 mg/dl [facility] Conjugated Bilirubin 0.0 0.0 - 0.3 mg/dl [facility] B Bilirubin, Total <0.5 0.2 - 1.3 mg/dl [facility] Specimen Blood specimen (specimen) Performing Organization Address City/[facility]/ZIP [facility] Phon e Number [facility] [address] [place] [address] SERVICES [facility] [address] [place] [address] documented in this encounter Visit Diagnoses Diagnosis Abdominal pain Abdominal pain, unspecified site documented in this encounter Care Teams Lathing Supervisor Relationship Specialty Start Date End Date Ilan Kelly MD PCP - General 01/29/11 03/18/13 1 [facility] [address] [place] [address] Sixto Sandoval MD PCP - Alternate 01/05/13 12/25/15 [address] [place] [phone] documented as of this encounter
--- OUTSIDE RECORDS SUMMARY | 2022-06-05 06:51 | XMS_ITS | Encounter Summary ---
:1990 Author Organization [facility] Address [address] [place] [address] Care Team Providers Name Role Phone Ilan Kelly MD Primary Care Provider Sixto Sandoval MD Unavailable Reason for Referral Radiology Services (Routine/Next Available) - Closed Specialty Diagnoses / Procedures Referred By Contact Refer red To Contact Diagnoses Epigastric pain Socorro Motta, Procedures RAD US ABDOMEN ONE ORGAN/QUADRANT DO [address] [place] [address] Referral ID Status Reason Start Date Expiration Date Visits Requ ested Visits Authorized [id number] Closed 02/02/2013 1 1 Reason for Visit Reason Comments Abdominal Pain Diarrhea Encounter Details Date Type Department Care Team Description 02/02/2013 Office Visit [facility] Unknown, Prov MD raghavendra Epigastric pain (Primary Dx); Adult Primary Care - Socorro Motta, DO Nausea & vomiting; [place] [facility] [address] [place], [place] [id number] Social History Tobacco Use Types Packs/Day Years [...] Reading Time Taken Comments Blood Pressure 122/60 02/02/2013 1053 EDT Pulse 80 02/02/2013 1053 EDT Temperature 36.6 ??C (97.8 ??F) 02/02/2013 1053 EDT Respiratory Rate 20 02/02/2013 1053 EDT Oxygen Saturation - - Inhaled Oxygen Concentration - - Weight 103.9 kg (229 lb) 02/02/2013 1053 EDT Height - - Body Mass Index 33.82 01/21/2013 1128 EST documented in this encounter Progress Notes Socorro Purcell, - 02/02/2013 1100 EDT PGY-3 Ambulatory Progress Note Attending: Dr. Rivera CC: Abdominal Pain Subjective Patient Active Problem List Diagnoses ??? Other activity ??? Obesity ??? Acanthosis nigricans ??? Depression ??? Hypertension ??? Asthma ??? Metabolic syndrome X HPI: Mr. Gonzalez is a 22 year old male with hx as above including HTN (not on meds), obesiy, depression (hxof SI) who has been evaluated and followed for abdominal pain for the past few visits (since dec 2012) at this clinic. The patient reports that he has had abdominal pain for several months now which maxi sharp pain that is diffuse worsens after meals. He was just recently started on omeprazole 20mg POBID a couple of weeks ago which has not helped his symptoms and in fact reports that his symptoms are now worse. He denied etoh use, smokes almost 1 ppd and smokes marijuana daily (has cut down from 5 bowls/day to 1 bowl/day). Does not describe himself as an outdoorsy person but has been hunting in the past. H.Pylori Ab was negative, TTG, LFTs and Lipase have all been wnl as well. He endorses associated symptoms of diarrhea, nausea and vomiting which occur intermittently. Patient reports an episode of nausea/vomting and diarrhea prior to this appointment but not for the past week. Says he is not aware of what his stools look like. He has not lost weight. Denied early satiety. He has cut out lactose containing products without resolve of symptoms. ROS: A 10 point ROS was reviewed. Pertinent positives and negatives are mentioned in the HPI or are otherwise negative. Current Outpatient Prescriptions Medication Sig Dispense Refill ??? omeprazole (PRILOSEC) 20 mg capsule Take 20 mg by mouth 2 times daily. ??? pantoprazole (PROTONIX) 20 mg tablet Take 2 Tabs by mouth daily. 30 Tab 0 ??? ASPIRIN/SOD BICARB/CITRIC ACID (MIRIAM-SELTZER ORAL) Take by mouth. Objective: Vital Signs: Blood pressure 122/60, pulse 80, temperature 36.6 ??C (97.8 ??F), temperature source Tympanic, resp.rate 20, weight 103.874 kg (229 lb). EXAM: General: Alert and in no acute distress, obese HEENT: NC/AT, sclera anicteric, MMM Resp: Clear to auscultation bilaterally, no wheezes/rales/rhonchi CV: RRR, +S1/S2, no murmurs/rub/katy, GI: Soft, diffusely tender to palpation while laying however did not appear to be in discomfort whenpressing down with my stethescope to the same degree, non- distended, normoactive bowel sounds present : No CVA tenderness Ext: No clubbing, cyanosis or edema, radial and pedal pulses 2+ and symmetric Skin: Warm, dry and intact. No rashes or lesions Neuro: Alert and oriented X 3, grossly nonfocal LABS: Lab Results Component Value Date LIPASE 53 01/29/2013 Lab Results Component Value Date ALT 76* 01/29/2013 ALT Duplicate Test Request 10/10/2009 AST 38 01/29/2013 AST Duplicate Test Request 10/10/2009 GGT 38 01/29/2013 ALKPHOS 79 01/29/2013 ALKPHOS Duplicate Test Request 10/10/2009 Lab Results Component Value Date GGT 38 01/29/2013 Assessment: Mr. Gonzalez is a 22 year old male with hx as above including HTN (not on meds), obesity, depression (hx of SI) who has been evaluated for abdominal pain (epigastric and diffuse) associated with n/v and diarrhea which are intermittent while his abdominal pain appears to be more persistent. 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 voluntarily guarding -with patient's hx of obesity and HLD and pain which worsens after meals would evaluate biliary treewith RUQ for gallstones -differential also includes somatization with patient's hx of depression; (his mom and GF were in the room with him during exam) -Patient also a daily marijuana user with a several year hx of smoking heavily which is likely contributing to his symptoms - encouraged patient to continue to decrease smoking and to eventually stop -In addition infectious causes should be ruled out with stool O& P and stool for Giardia -Will also check TTG and IgA to eval for celiac -Would check HbA1c in this patient with HTN, obesity to eval for possible other causes of gastroparesis -Continue with lactose avoidance -Abdominal pain is likely a combination of the above ddx -could consider a gastric emptying study if sx do not resolve Discussed with Dr. Miguel Purcell DO PGY3 ATTENDING ATTESTATION: I have discussed the patient with the resident at the time of the visit. I agree with the findings and the plan of care documented in the resident's note. RENETTA RIVERA MD MPH [facility] - Given [facility] 02/05/2013; 9:28 documented in this encounter Plan of Treatment Not on filedocumented as of this encounter Procedures Procedure Name Priority Date/Time Associated Diagnosis Comme nts RAD US ABDOMEN ONE Routine 02/11/2013 9:19 EDT Epigastric pain Results for this ORGAN/QUADRANT procedure are in the results section. documented in this encounter Results RAD US ABDOMEN ONE ORGAN/QUADRANT (02/11/2013 9:19 EDT) Anatomical Region Laterality Modality Other Specimen Narrative [facility] - 02/11/2013 10:08 EDT RUQ US ??Feb 11, 2013 09:20:07 AM Signs/Symptoms:789.06-Abdominal pain, ep [id number]-CM; 22 yo male with epigastric and diffuse abd pain Comparison: CT January 31, 2011 Findings: Static, cine and color Doppler images of the right upper quadrant were obtained. The liver is homogeneous and of increase d echotexture. It measures 16.2 cm. There is no intrahepatic or ext rahepatic biliary dilatation. The common bile duct measures 2 mm. The gallbladder contains no stones and h as a normal wall thickness which measures 1 mm. There is no pericho lecystic fluid. Right kidney measures 11.1 cm and has no rmal echogenicity. ??There is no hydronephrosis, mass or stone. The visualized portion of the aorta and IVC are normal. The pancreas is not well seen. Impression: 1. Mild hepatosteatosis. I have personally reviewed the images an d the above interpretation and agree with the findings. Procedure Note Jazzy Fong MD - 02/11/2013 RU US Feb 11, 2013 09:20:07 AM Signs/Symptoms:789.06-Abdominal pain, ep [id number]-CM; 22 yo male with epigastric and diffuse abd pain Comparison: CT January 31, 2011 Findings: Static, cine and color Doppler images of the right upper quadrant were obtained. The liver is homogeneous and of increase d echotexture. It measures 16.2 cm. There is no intrahepatic or ext rahepatic biliary dilatation. The common bile duct measures 2 mm. The gallbladder contains no stones and h as a normal wall thickness which measures 1 mm. There is no pericho lecystic fluid. Right kidney measures 11.1 cm and has no rmal echogenicity. There is no hydronephrosis, mass or stone. The visualized portion of the aorta and IVC are normal. The pancreas is not well seen. Impression: 1. Mild hepatosteatosis. I have personally reviewed the images an d the above interpretation and agree with the findings. Performing Organization Address City/State/ZIP Code Phon e Number [facility] TTG AB, IGA, S (02/02/2013 12:03 EDT) tTG Ab, IgA, S <1.2 <4.0 [facility] Comment: (Negative) LAB Performed by: [facility], [address], [place], [place] [address], Spring Bender: Marina Mitchell, Ph.D. Specimen Blood specimen (specimen) Performing Organization Address City/State/ZIP Code Phon e Number [facility] [address] [place] [address] SERVICES [facility] [address] [place] [address] documented in this encounter Visit Diagnoses Diagnosis Epigastric pain - Primary Abdominal pain, epigastric Nausea & vomiting Nausea with vomiting Diarrhea documented in this encounter Discontinued Medications Medication Sig Discontinue Reason Start Date End Date pantoprazole (PROTONIX) 20 Take 2 Tabs by Duplicate Therapy 013 02/02/2013 mg tablet mouth daily. documented as of this encounter Care Teams Foster Care Social Worker Relationship Specialty Start Date End Date Ilan Kelly MD PCP - General 01/29/11 03/18/13 1 [facility] [address] [place] [phone] Sixto Sandoval MD PCP - Alternate 01/05/13 12/25/15 [address] [place] [phone] documented as of this encounter
--- OUTSIDE RECORDS SUMMARY | 2022-06-05 06:51 | XMS_ITS | Encounter Summary ---
:[address] [facility] Address [address] [place] [address] Care Team Providers Name Role Phone Ilan Kelly MD Primary Care Provider Reason for Visit Reason Onset Date Comments Emesis 03/06/2011 x 3 days Encounter Details Date Type Department Care Team Description 03/06/2011 Telephone [facility] Adult Ilan Kelly iot, Emesis (x 3 days) Primary Care - [address] [address] [place] [phone] (Wo rk) Social History Tobacco Use Types [...] this encounter Miscellaneous Notes Telephone Encounter - Latasha Bee RN - 03/06/2011 8699 EDT All documentation reviewed and approved. Latasha Bee RN 03/06/2011 15:40 elephone Encounter - Ramandeep Bolaños LPN - 03/06/2011 1538 EDT Spoke with pt. He states that he has been vomiting 3-4 times daily for the last 3 days. His vomitus has blood at times, sometimes bright red in color, sometimes a dark red. C/O chest pain at times, hasbeen having SOB and periods of difficulty breathing. Has periods of constipation. Has a decreased urine output, urine color dark. Skin dry. Friends tell him that he has sunken eyes. C/O sweats. No loss of consciousness or fainting, no known injuries, no excessive thirst or dry mouth. No diarrhea. States that he feels that pneumonia has come back. He is using his inhalers to help with the breathing. He says that he feels exactly the same way as he did when he had pneumonia. Informed pt that there are no appts available in clinic until 03/08/11. Highly suggested that he seekemergent care to either [facility] or an ER. Pt stated he absolutely has no ride to either area. He is currently in [facility] and will not be able to go seek any care until tomorrow 03/07/11. Advised per Telephone Triage Protocol book, pg [phone]. We also spoke of calling an ambulance if symptoms worsen including any increased difficulty in breathing, vomiting of blood, fainting, etc. Pt stated he understood information. He also agreed to an appt on 03/08/11 which has been scheduled. elephone Encounter - Cece Lopez - 03/06/2011 1401 EDT Patients mother called to schedule an appointment for her son stated he cannot stop vomiting, x 3 days. Please call the patient to advise. documented in this encounter Plan of Treatment Not on filedocumented as of this encounter Visit Diagnoses Not on filedocumented in this encounter Care Teams Panel Edge Painter Relationship Specialty Start Date End Date Ilan Kelly MD PCP - General 01/29/11 03/18/13 1 [facility] [address] [place] [phone] documented as of this encounter
--- OUTSIDE RECORDS SUMMARY | 2022-06-05 06:51 | XMS_ITS | Encounter Summary ---
:1990 Author Organization [facility] Address [address] [place] [address] Care Team Providers Name Role Phone Ilan Kelly MD Primary Care Provider Encounter Details Date Type Department Care Team Description 07/25/2012 Hospital Encounter [facility] Candie Wang PA Acute URI Urgent Care - [place] Unknown, Provider, [address] [id number] Social History Tobacco Use Types Packs/Day Years [...] Sign Reading Time Taken Comments Blood Pressure 134/79 07/25/2012 1339 EDT Pulse 60 07/25/2012 1339 EDT Temperature 35.8 ??C (96.4 ??F) 07/25/2012 1339 EDT Respiratory Rate 24 07/25/2012 1339 EDT Oxygen Saturation 100% 07/25/2012 1339 EDT Inhaled Oxygen Concentration - - Weight - - Height - - Body Mass Index - - documented in this encounter Discharge Instructions InstructionsHibbard, Candie, PA - 07/25/2012 Ibuprofen 600mg and tylenol 650mg every 8 hours for pain. AttachmentsThe following attachments cannot be sent through Care Everywhere. VIRAL RESPIRATORY INFECTION: AFTER YOUR VISIT (IRISH)documented in this encounter Medications at Time of Discharge Medication Sig Dispensed Refills Start Date End Date loratadine (CLARITIN) 10 Take 10 mg by mouth 0 01/14/2013 mg tablet daily. documented as of this encounter Discharge Disposition Disposition Code Departure Means Destination Home or Self Care Car documented in this encounter ED Notes Candie Wang PA - 07/25/2012 1534 EDT DOS: 07/25/2012 No chief complaint on file. The patient is a 22 y.o. male who presents today with No chief complaint on file. The history is provided by the patient (22-year-old male complains of cough, fatigue, runny nose, sore throat times one day.). URI This is a new problem. The current episode started yesterday. The problem has not changed since onset.There has been no fever. Associated symptoms include congestion, rhinorrhea and sore throat. Pertinent negatives include no chest pain, no nausea, no vomiting, no ear pain, no headaches, no plugged ear sensation, no sinus pain, no sneezing, no swollen glands, no joint pain, no neck pain, no cough, norash and no wheezing. He has tried nothing for the symptoms. Review of Systems Constitutional: Positive for activity change and fatigue. Negative for fever, chills, diaphoresis and appetite change. HENT: Positive for congestion, sore throat and rhinorrhea. Negative for ear pain, facial swelling, sneezing, mouth sores, trouble swallowing, neck pain, neck stiffness, sinus pressure and ear discharge. Eyes: Negative. Respiratory: Negative. Negative for cough and wheezing. Cardiovascular: Negative. Negative for chest pain. Gastrointestinal: Negative. Negative for nausea and vomiting. Musculoskeletal: Negative. Negative for joint pain. Skin: Negative. Negative for rash. Neurological: Negative. Negative for headaches. Psychiatric/Behavioral: Negative. No current facility-administered medications for this encounter. Current Outpatient Prescriptions Medication Sig Dispense Refill ??? loratadine (CLARITIN) 10 mg tablet Take 10 mg by mouth daily. Allergies Allergen Reactions ??? Cats ??? Pollen Extracts Past Medical History Diagnosis Date ??? Hypertension ??? Asthma ??? Chicken pox As a child ??? CABRALES (nonalcoholic steatohepatitis) ??? Glucose intolerance (impaired glucose tolerance) ??? Depression History Substance Use Topics ??? Smoking status: [...] Grandmother ??? Coronary Artery Disease Other great-uncle BP 134/79 Pulse 60 Temp(Src) 96.4 ??F (35.8 ??C) (Temporal) Resp 24 SpO2 100% Physical Exam [nursing notereviewed. Constitutional: He is oriented to person, place, and time. He appears well- developed and well-nourished. He appears distressed. HENT: Head: Normocephalic and atraumatic. Right Ear: External ear normal. Left Ear: External ear normal. Mouth/Throat: Oropharynx is clear and moist. No oropharyngeal exudate. Eyes: Conjunctivae are normal. Neck: Normal range of motion. Neck supple. Cardiovascular: Normal rate, regular rhythm and normal heart sounds. No murmur heard. Pulmonary/Chest: Effort normal and breath sounds normal. No respiratory distress. He has no wheezes.He has no rales. Musculoskeletal: Normal range of motion. Lymphadenopathy: He has no cervical adenopathy. Neurological: He is alert and oriented to person, place, and time. Skin: Skin is warm and dry. He is not diaphoretic. Psychiatric: He has a normal mood and affect. Consult orders: None PCP: Ilan Kelly MD No results found for this visit on 07/25/12. Radiology orders: None Procedures Course: A medical screening exam was performed. URI times one day. Patient may return to work today, needs awork note. Ibuprofen and Tylenol for sore throat. Follow up with primary care provider is needed. Disposition: Discharged The patient's pain was managed to an adequate level weighing risk vs. benefit of further medications. [facility], the patient's pain was 0 on a zero to ten scale. Condition at departure from the [facility] In [facility]: Fair 1. Acute URI Dr. Gavi eHlton was available for consultation during my care of this patient. MDM Number of Diagnoses or Management Options Acute URI: new, no workup Amount and/or Complexity of Data Reviewed Review and summarize past medical records: yes 07/26/2012 19:16 Tad Moreno RN - 07/25/2012 1340 EDT Productive cough with blood tinged sputum onset 2 days ago with subjective fever. + Sore throat, +congestion, +nausea. Pt has hx pf pneumonia and this feels the same. No dyspnea. Zoie Whitehead - 07/25/2012 1339 EDT Patient asked to change into a gown. documented in this encounter Miscellaneous Notes Scanned Note-Null - MARKET INTELLIGENCE CONSULTANT, SCAN 2 - 07/29/2012 1449 EDT documented in this encounter Plan of Treatment Not on filedocumented as of this encounter Visit Diagnoses Diagnosis Acute URI Acute upper respiratory infections of un specified site documented in this encounter Discontinued Medications Medication Sig Discontinue Reason Start Date End Date oxycodone-acetaminophen Take 1 Tab by mouth Therapy completed 03/2007/25/2012 (PERCOCET) 10-325 mg per every 6 hours as tabletIndications: Right needed for Pain. shoulder injury tramadol (ULTRAM) 50 mg Take 1 Tab by mouth Therapy completed 04/0107/25/2012 tablet every 6 hours as needed for Pain. documented as of this encounter Historical Medications This list may reflect changes made after this encounter. Medication Sig Dispensed Refills Start Date End Date loratadine (CLARITIN) 10 Take 10 mg by mouth 0 01/14/2013 mg tablet daily. added in this encounter Orders Nursing Count Last Ordered Date First Ordered Date PULSE OXIMETRY 1 07/25/2012 documented in this encounter Care Teams Cylinder Valve Repairer Relationship Specialty Start Date End Date Ilan Kelly MD PCP - General 01/29/11 03/18/13 1 [facility] [address] [place] [phone] documented as of this encounter
--- OUTSIDE RECORDS SUMMARY | 2022-06-05 06:51 | XMS_ITS | Encounter Summary ---
:1990 Author Organization [facility] Address [address] [place] [address] Care Team Providers Name Role Phone Sixto Sandoval MD Unavailable Wolf Bethea MD MPH Primary Care Provider [phone] Reason for Visit Reason Comments Abdominal Pain Abdominal pain for months. B lack stool last night. Has been evaluated for this before. A&O. Respir ations unlabored. Skin warm & dry. NAD. Encounter Details Date Type Department Care Team Description 11/29/2013 Emergency [facility] Vania Brewer MD [address] [place], [place] [id number] GI bleed (Primary Dx) Emergency Department EmergencyPedro Pablo MD - Main [place] [address] [place], [place] [id number] Social History Tobacco Use Types Packs/Day Years [...] Reading Time Taken Comments Blood Pressure 134/82 11/29/2013 2127 EST Pulse - - Temperature 36 ??C (96.8 ??F) 11/29/2013 1734 EST Respiratory Rate 16 11/29/2013 2127 EST Oxygen Saturation 99% 11/29/2013 2127 EST Inhaled Oxygen Concentration - - Weight 96.6 kg (213 lb) 11/29/2013 1734 EST Height - - Body Mass Index 32.39 11/07/2013 1308 EST documented in this encounter Discharge Instructions Darian Barrera MD - 11/29/2013 You are signing out against medical advice. It is recommended that you be admitted to the hospital tonight. Risks of signing out against medical advice include massive bleeding and or permanent disability. Please return if you change your mind. Please return for any further black or bloody stoolor vomiting. You need to be seen by your primary care tomorrow for a recheck of your blood count. You should followup with gastroenterology as soon as possible for both upper and lower endoscopy. AttachmentsThe following attachments cannot be sent through Care Everywhere. GASTROINTESTINAL BLEEDING: AFTER YOUR VISIT (CAMEROONIAN)documented in this encounter Discharge Disposition Disposition Code Departure Means Destination Home or Self Care Walk-out Home documented in this encounter ED Notes Mattie Rodrigez RN - 11/29/2013 2200 EST Pt expresses understanding over DC instructions, pt understands why hospital does not want him to leave AMA. Pt still wishes to leave. Mattie Mccarty RN - 11/29/2013 1922 EST Blood drawn via saline lock per protocol, purple tube(s) sent to lab per order. Darian Kim MD - 11/29/2013 1851 EST DOS: 11/29/2013 Chief Complaint Patient presents with ??? Abdominal Pain Abdominal pain for months. Black stool last night. Has been evaluated for this before. A&O. Respirations unlabored. Skin warm & dry. NAD. The patient is a 23 y.o. male who presents today with Abdominal Pain HPI Comments: This 23-year-old male with a history of chronic left upper quadrant abdominal pain andpossible colitis, as well as obesity, hypertension, asthma, and metabolic syndrome X., presents to the emergency department with 2 episodes of black stool, one last night and one this morning. The patient states he has had chronic left upper quadrant abdominal pain for over one year. He has been tentatively diagnosed with possible colitis, but no treatment was given. The patient states his abdominal pain is completely unchanged and in fact if anything slightly better than usual. He has not had any bloody vomit. He has not had any fevers or chills. The patient has been out of his and imiprozol for se veral weeks because he buys it [id number] and has not bought more. He has never had an upper or lower GI. The history is provided by the patient. Melena The current episode started 12 to 24 hours ago. Episode frequency: Twice. The problem has been resolved. The pain is associated with an unknown factor. The pain is located in the LUQ. The quality of the pain is aching, colicky and cramping. Associated symptoms include melena and abdominal pain (chronic and unchanged or slightly improved). Pertinent negatives include no anorexia, no fever, no belching, no diarrhea, no flatus, no hematochezia, no nausea, no vomiting, no constipation, no dysuria, no frequency, no hematuria, no headaches, no arthralgias, no myalgias, no anal bleeding, no rectal pain, no weakness, no dizziness and no hematemesis. The Symptoms are described as mild. Review of Systems Constitutional: Negative for fever, chills, activity change and appetite change. Respiratory: Negative for cough and shortness of breath. Cardiovascular: Negative for chest pain. Gastrointestinal: Positive for abdominal pain (chronic and unchanged or slightly improved) and melena. Negative for nausea, vomiting, diarrhea, constipation, hematochezia, anal bleeding, rectal pain, anorexia, flatus and hematemesis. Genitourinary: Negative for dysuria, frequency and hematuria. Musculoskeletal: Negative for myalgias and arthralgias. Neurological: Negative for dizziness, weakness, light-headedness and headaches. All other systems reviewed and are negative. Past Medical History Diagnosis Date ??? Hypertension ??? Asthma ??? Chicken pox As a child ??? CABRALES (nonalcoholic steatohepatitis) ??? Glucose intolerance (impaired glucose tolerance) ??? Depression Past Surgical History Procedure Laterality Date ??? Tympanostomy tube placement Allergies Allergen Reactions ??? Cats ??? Pollen Extracts History Substance Use Topics ??? Smoking status: Current Every Day Smoker -- 0.50 packs/day for 7 years Types: Cigarettes ??? [...] Artery Disease Other great-uncle Vital Signs Temp: 36 ??C (96.8 ??F) Heart Rate: 71 BPM Resp: 14 SpO2: 100 % BP: 133/82 mmHg BP Device: BP Machine Patient Position: Sitting BP Cuff Location: Left arm O2 Device: None (Room air) Physical Exam Nursing note and vitals reviewed. Constitutional: He is oriented to person, place, and time. He appears well- developed and well-nourished. HENT: Head: Normocephalic and atraumatic. Eyes: Grossly normal Neck: Normal range of motion. Neck supple. Cardiovascular: Normal rate and regular rhythm. Exam reveals no gallop and no friction rub. No murmur heard. Pulmonary/Chest: Effort normal and breath sounds normal. No respiratory distress. He has no wheezes.He has no rales. Abdominal: Soft. Bowel sounds are normal. He exhibits no distension and no mass. There is no tenderness. Genitourinary: Brown heme-negative stool. Passed internal control. Musculoskeletal: Normal range of motion. He exhibits no edema and no tenderness. Neurological: He is alert and oriented to person, place, and time. Grossly intact Skin: Skin is warm and dry. No rash noted. Psychiatric: He has a normal mood and affect. Lab Results HEMAGRAM AND DIFFERENTIAL (Final result) HEMAGRAM (Final result) Abnormal Component (Lab Inquiry) Result Time WBC RBC Hemoglobin HCT MCV 11/29/13 19:26:55 6.77 4.11 (L) 12.7 (L) 36.4 (L) 89 Result Time MCH MCHC PLT RDW-CV 11/29/13 19:26:55 31.0 35.0 158 13.1 DIFFERENTIAL (Final result) Component (Lab Inquiry) Result Time Neutrophils Lymphocytes Monocytes Eosinophils Basophils 11/29/13 19:26:55 64.6 26.8 7.1 0.9 0.6 Result Time ABS Neutrophils ABS Lymphs ABS Monocytes ABS Eosinophils ABS Basophils 11/29/13 19:26:55 4.37 1.81 0.48 0.06 0.04 Result Time Type of Diff: 11/29/13 19:26:55 Automated Radiology orders: None Imaging Results None Procedures ED Course: A medical screening exam was performed. The patient has had a significant drop in his hemoglobin andhematocrit over the course of 3 weeks. He is hemodynamically stable. It has been recommended that the patient be admitted to the [facility] for repeat hemoglobin and hematocrit and both upper and lower endoscopy. Gastroenterology has been consulted and concurs with this plan. The patient initially agreed to admission, however, when medicine came to admit him, he refused admission. He states he will followup with his primary care for a repeat blood count tomorrow. An e-mail has been sent togastroenterology to schedule the patient for a next available followup upper and lower GI. Disposition: AMA The patient's pain was managed to an adequate level weighing risk vs. benefit of further medications. Upon departure from the Emergency Department, the patient's pain was 4 on a zero to ten scale. Condition at departure from the Emergency Department: Fair Discharge Prescriptions No Discharge Prescriptions for this patient MDM Final diagnoses: GI bleed PCP: Wolf Bethea MD 11/29/2013 21:27 Kenny Benitez RN - 11/29/2013 7988 EST Chief Complaint Patient presents with ??? Abdominal Pain Abdominal pain for months. Black stool last night. Has been evaluated for this before. A&O. Respirations unlabored. Skin warm & dry. NAD. documented in this encounter Plan of Treatment Not on filedocumented as of this encounter Procedures Procedure Name Priority Date/Time Associated Comments Diagnosis DRY POWDERED OR Routine 11/29/2013 20:34 METERED DOSE INHALER EST DIFFERENTIAL STAT 11/29/2013 19:07 Results for this EST procedure are i n the results section. COMPLETE BLOOD COUNT STAT 11/29/2013 19:07 Res ults for this EST procedure are i n the results section. COMPLETE BLOOD COUNT STAT 11/29/2013 19:07 AND DIFFERENTIAL EST documented in this encounter Results DIFFERENTIAL (11/29/2013 19:07 EST) Pathologist Sig nature Neutrophils 64.6 45.5 - 79.7 % [facility] Lymphocytes 26.8 15.0 - 46.8 % [facility] Monocytes 7.1 1.8 - 12.0 % [facility] Eosinophils 0.9 0.6 - 6.9 % [facility] Basophils 0.6 0.2 - 1.4 % [facility] ABS Neutrophils 4.37 2.20 - 8.85 K/cmm [facility] ABS Lymphs 1.81 1.09 - 3.30 K/cmm [facility] ABS Monocytes 0.48 0.1 - 0.8 K/cmm [facility] ABS Eosinophils 0.06 0.03 - 0.61 K/cmm [facility] ABS Basophils 0.04 0.01 - 0.11 K/cmm [facility] Type of Diff: Automated [facility] Specimen Performing Organization Address City/State/ZIP Code Phon e Number [facility] [address] [place] [address] SERVICES [facility] [address] [place] [address] (ABNORMAL) HEMAGRAM (11/29/2013 19:07 EST) Pathologist Sig nature WBC 6.77 4.0 - 10.4 K/cmm [facility] RBC 4.11 (L) 4.36 - 5.78 M/cmm [facility] Hemoglobin 12.7 (L) 13.8 - 17.3 gm/dl [facility] HCT 36.4 (L) 39.5 - 50.2 % [facility] MCV 89 81 - 95 fl [facility] MCH 31.0 27.6 - 33.0 pg [facility] MCHC 35.0 32.8 - 36.4 gm/dl [facility] PLT 158 141 - 320 K/cmm [facility] RDW-CV 13.1 11.8 - 14.1 % [facility] Specimen Performing Organization Address City/State/ZIP Code Phon e Number [facility] [address] [place] [address] SERVICES [facility] [address] [place] [address] documented in this encounter Visit Diagnoses Diagnosis GI bleed - Primary Hemorrhage of gastrointestinal tract, un specified documented in this encounter Active and Recently Administered Medications Orders Medications Ordered That Might Not Have Count Last Ord ered Date First Ordered Date Been Administered nicotine (NICOTROL) 10 mg inhaler 1 1 11/29/2013 Inhaler Nursing Count Last Ordered Date First Ordered Date INSERT SALINE LOCK 1 11/29/2013 Respiratory Care Count Last Ordered Date First Ordered Date DRY POWDERED OR METERED DOSE INHALER 1 11/29/2013 documented in this encounter Care Teams [employer] Supervisor Relationship Specialty Start Date End Date Sixto Sandoval MD PCP - Alternate 01/05/13 12/25/15 [address] [place] [address] Wolf Bethea MD MPH PCP - General 03/19/13 06/03/14 1 [facility] Level [address] [place] [address] documented as of this encounter
--- OUTSIDE RECORDS SUMMARY | 2022-06-05 06:51 | XMS_ITS | Encounter Summary ---
:1990 Author Organization [facility] Address [address] [place] [address] Care Team Providers Name Role Phone Sixto Sandoval MD Unavailable Wolf Bethea MD MPH Primary Care Provider Reason for Visit Reason Comments Hospital Discharge Follow Up Encounter Details Date Type Department Care Team Description 11/30/[address] [facility] Unknown, Andrea mabry MD Acute blood loss anemia (Primary Dx); Adult Primary Care - Oliva Card MD PhD [address] [place] [address] Abdominal pain; [place] Arcelia Chakraborty MD [address] [address] Melena 1 [facility] Wolf Bethea MD MPH 1 [facility] Level [address] [place] [phone] [place], [place] [id number] Social History Tobacco Use Types Packs/Day Years [...] Sign Reading Time Taken Comments Blood Pressure 140/70 11/30/2013 1341 EST Pulse 86 11/30/2013 1341 EST Temperature 36.8 ??C (98.3 ??F) 11/30/2013 1341 EST Respiratory Rate 16 11/30/2013 1341 EST Oxygen Saturation - - Inhaled Oxygen Concentration - - Weight 93.9 kg (207 lb) 11/30/2013 1341 EST Height - - Body Mass Index 31.47 11/07/2013 1308 EST documented in this encounter Discharge Diagnoses Diagnosis 285.1 AC POSTHEMORRHAG ANEMIA[ICD-9-CM] documented in this encounter Patient Instructions Patient InstructionsMcArcelia Anaya MD - 11/30/2013 14:20 EST Start Omeprazole 40mg (2 pills) twice daily. See Dr. Chaudhari (GI doctor) tomorrow morning at 9:00am. Go to the ER for morning black bowel movements, or for dizziness, fainting, lightheadedness or if blood counts come back low. (I will call you) documented in this encounter Progress Notes Oliva Card MD - 12/06/2013 1513 EST Pt discussed with the resident while the pt was in the office. Agree with A and P. Hct better. Oliva Card MD Arcelia Street MD - 11/30/20132053 EST Given Primary Care Acute Visit Date of Service: 11/30/2013 SUBJECTIVE/HPI Patient ID Zeeshan Gonzalez Jr. is an 23 y.o. male who presents today with chief complaint of Hospital Discharge Follow Up Shean states he has been very anxious since leaving the ED after refusing admission yesterday. I couldn't sleep at all, I thought I wouldn't wake up. When questioned about his reasoning he states I just couldn't stay, I don't do well in unfamiliar surroundings, I can't explain. He denies feeling faint or presyncopal. He reports SOB and racing heart 2/2 anxiety. He has had one soft brown BM, no further episodes of melena in the past day. He has ongoing chronic epigastric and LUQ pain. He was taking omeprazole for about 6 months which was helping the pain but stopped a few months ago due to financial reasons. He does report a 12# unintentional weight loss in 3 weeks. He eats 1 regular meal per day (dinner) and maybe a snack. He is very anxious and worried about his health. Review of Systems: A complete 10 point ROS was performed and pertinent positive and negative findings listed in HPI, otherwise negative. Medications: None OBJECTIVE BP 140/70 Pulse 86 Temp(Src) 36.8 ??C (98.3 ??F) (Tympanic) Resp 16 Wt 93.895 kg (207 lb) BMI 31.48 kg/m2 Physical Exam General appearance: alert, cooperative, anxious young man, smells of tobacco Skin: Skin color, tempature, turgor normal. No rashes or lesions HEENT: NC/AT PEERL, MMM, no conjunctival pallor Lungs: clear to auscultation bilaterally, good air movement throughout Heart: regular rate and rhythm, S1, S2 normal, no murmur, click, rub or gallop Abdomen: soft, mildly TTP epigastrium and LUQ, +BS, no rebound or guarding Neurologic: Grossly normal, moving all extremities, strength and sensation equal and intact throughout Extremities: extremities warm, atraumatic, no cyanosis or edema, positive pulses bilat Labs: CBC: Recent Labs 11/29/13 1907 11/30/13 1448 WBC 6.77 8.87 NEUTROABS 4.37 -- HGB 12.7* 15.3 PLT 158 205 ASSESSMENT Zeeshan Gonzalez Jr. is a 23 y.o. male with a PMHx significant for has a past medical history of Hypertension; Asthma; Chicken pox (As a child); CABRALES (nonalcoholic steatohepatitis); Glucose intolerance (impaired glucose tolerance); and Depression. who presents today for ED discharge follow up. Presented to ED after 2 episodes of melana and found to have drop in hgb to 12. Plan was to admit for monitoring and inpt EGD/colo however pt refused admission 2/2 anxiety. PLAN Acute blood loss anemia / Abdominal pain / Melena - most likely PUD vs IBD however unintentional weight loss concerning and would recommend further workup/endoscopy to r/o other pathology - Hemagram; (as above) called pt with reassuring results - recommended BID omeprazole however pt is uninsured and does not have finances to buy OTC but states I will try - GI f/u as below Anxiety - recommend f/u with PCP Dr Sandoval to discusses significant anxiety Tobacco abuse - pt would like to quit, girlfriend is , due in 5 weeks, states I have 5 weeks to quit - patient state of change, 7 ready, however does not want to discuss at this acute visit due to concern over GI symptoms - advice given to stop smoking - rec f/u with PCP in 2 weeks Follow up with Dr. Chaudhari as already scheduled tomorrow 9:00am. Pt strongly encouraged to attend appt. Future Appointments Date Time Provider Department Center 12/01/2013 9:00 John Chaudhari MD [facility] None 12/23/2013 11:15 Sixto Sandoval MD Givn Est/Wst None Patient was discussed with Dr Card. Arcelia Chakraborty MD, PGY2 [phone] 11/30/2013 20:54 documented in this encounter Plan of Treatment Not on filedocumented as of this encounter Results HEMAGRAM (11/30/2013 14:48 EST) Pathologist Sig nature WBC 8.87 4.0 - 10.4 K/cmm [facility] RBC 4.85 4.36 - 5.78 M/cmm [facility] Hemoglobin 15.3 13.8 - 17.3 gm/dl [facility] HCT 42.9 39.5 - 50.2 % [...] Number [facility] [address] [place] [address] SERVICES [facility] [address] [place] [address] documented in this encounter Visit Diagnoses Diagnosis Acute blood loss anemia - Primary Acute posthemorrhagic anemia Abdominal pain Abdominal pain, unspecified site Melena Blood in stool documented in this encounter Care Teams Lithopone Mill Worker Relationship Specialty Start Date End Date Sixto Sandoval MD PCP - Alternate 01/05/13 12/25/15 [address] [place] [address] Wolf Bethea MD MPH PCP - General 03/19/13 06/03/14 1 [facility] [address] [place] [address] documented as of this encounter
--- OUTSIDE RECORDS SUMMARY | 2022-06-05 06:51 | XMS_ITS | Encounter Summary ---
:1990 Author Organization [facility] Address [address] [place] [address] Care Team Providers Name Role Phone Ilan Kelly MD Primary Care Provider Encounter Details Date Type Department Care Team Description 06/04/2011 Orders Only [facility] Sender, Juan padilla (Primary Pulmonology & Miles, PAHalimaC Dx) Critical Care - [address] [place] [address] [facility] [place] [address] (Wo rk) Social History Tobacco [...] as of this encounter Visit Diagnoses Diagnosis Pneumonia - Primary Pneumonia, organism unspecified documented in this encounter Care Teams Transformation Coach Relationship Specialty Start Date End Date Ilan Kelly MD PCP - General 01/29/11 03/18/13 1 [facility] [address] [place] [address] documented as of this encounter
--- OUTSIDE RECORDS SUMMARY | 2022-06-05 06:51 | XMS_ITS | Encounter Summary ---
:1990 Author Organization [facility] Address [address] [place] [address] Care Team Providers Name Role Phone Ilan Kelly MD Primary Care Provider Sixto Sandoval MD Unavailable Reason for Visit Reason Onset Date Comments Emesis 02/26/2013 Encounter Details Date Type Department Care Team Description 02/26/2013 Telephone [facility] Adult Ricky Rubin [place] [facility] [place] [address] Social History Tobacco Use Types Packs/Day Years [...] encounter Miscellaneous Notes Telephone Encounter - Airam Rubin RN - 02/26/2013 6688 EDT Spoke with patient's mother who reports he has been vomiting with yellow bile coming out since thismorning. He is in terrible abdominal pain, his stomach feels bloated, and he says his face is vibrating. He's in the shower right now and has an appointment at [facility] at 4:00 but I want to know if I should bring him to the emergency room right now. There is a huge family history of diverticulitis. Lucia denied symptoms of dehydration such as dry mouth, changes in urination. Lucia denied Hernando has shortness of breath: he's breathing faster than normal but he's breathing fine. Lucia was advised to keep the 4pm appointment (time of call 2:50) and cautioned that if she did go to the ER, he could very possibly wait to be seen beyond his 4:00 appointment time. In the mean time, Lucia was given instructions for Hernando to relax and refrain from eating or drinking until he is seen or until his stomach calms down and he is no longer actively vomiting. Instructions were given to share with Hernando reg arding splinting his abdomen while vomiting to help relieve pain and pressure on his abdominal muscles. Lucia agreed with this plan of care and verbalized understanding with no barriers noted. Airam Rubin RN documented in this encounter Plan of Treatment Not on filedocumented as of this encounter Visit Diagnoses Not on filedocumented in this encounter Care Teams Skin Drier Relationship Specialty Start Date End Date Ilan Kelly MD PCP - General 01/29/11 03/18/13 1 [facility] [address] [place] [address] Sixto Sandoval MD PCP - Alternate 01/05/13 12/25/[address] [place] [phone] documented as of this encounter
--- OUTSIDE RECORDS SUMMARY | 2022-06-05 06:51 | XMS_ITS | Encounter Summary ---
:1990 Author Organization [facility] Address [address] [place] [address] Care Team Providers Name Role Phone Ilan Kelly MD Primary Care Provider Encounter Details Date Type Department Care Team Description 07/02/[address] [facility] Viviana Mcginnis ea, PA Laboratory Services - [facility] [address] [place] [address] [address] [place] [address] [phone] Social History Tobacco Use Types Packs/Day Years [...] Procedure Name Priority Date/Time Associated Comments Diagnosis CHLAMYDIA/N. Routine 07/02/2011 17:35 Results for this GONORRHOEAE AMPLIFIED EDT proced ure are in RNA the results section. documented in this encounter Results CHLAMYDIA/GC AMPLIFIED (07/02/2011 17:35 EDT) Specimen Urine [facility] Description LAB Chlamydia Result No Chlamydia CTN2 [facility] trachomatis DNA LAB detected by search coordinator mediated amplification. GC Result No Neisseria NND2 [facility] gonorrhoeae DNA LAB detected by search coordinator mediated amplification. Specimen Other (qualifier value) Performing Organization Address City/State/ZIP Code Phon e Number [facility] [address] [place] [address] SERVICES [facility] [address] [place] [address] documented in this encounter Visit Diagnoses Not on filedocumented in this encounter Care Teams Environmental Adviser Relationship Specialty Start Date End Date Ilan Kelly MD PCP - General 01/29/11 03/18/13 1 [facility] 1 [place] [phone] documented as of this encounter
--- OUTSIDE RECORDS SUMMARY | 2022-06-05 06:51 | XMS_ITS | Encounter Summary ---
:1990 Author Organization [facility] Address [address] [place] [address] Care Team Providers Name Role Phone Ilan Kelly MD Primary Care Provider Reason for Referral Consult (Routine) - Closed Specialty Diagnoses / Procedures Referred By Contact Refer red To Contact Pulmonary Disease Diagnoses Pneumonia Ruiz Granados MD [facility] Pulmonology [address] [place] [address] [phone] Referral ID Status Reason Start Date Expiration Date Visits V isits Requested Authorized [id number] Closed Specialty 03/08/2011 1 1 Services Required Question Answer Reason for Request: recurrent pneumonia, ? atypi suraj or fungal infection, or non-infectious process Reason for Visit Reason Comments URI Encounter Details Date Type Department Care Team Description 03/08/2011 Office Visit [facility] Unknown, Prov MD raghavendra Pneumonia (Primary Adult Primary Care - Ruiz Granados MD [address] [place] [phone] Dx) [address] [id number] Social History Tobacco Use Types Packs/Day Years Used Date Current Every Day Smoker Cigarettes 0.5 2 Smokeless Tobacco: Never Used Comments: 12/03 down to 1 pack/day Alcohol Use Standard [...] Sign Reading Time Taken Comments Blood Pressure 100/60 03/08/2011 1450 EDT Pulse 78 03/08/2011 1450 EDT Temperature 36.5 ??C (97.7 ??F) 03/08/2011 1450 EDT Respiratory Rate 20 03/08/2011 1450 EDT Oxygen Saturation - - Inhaled Oxygen Concentration - - Weight 110.2 kg (243 lb) 03/08/2011 1450 EDT Height - - Body Mass Index 36.95 01/19/2011 1937 EST documented in this encounter Ordered Prescriptions Prescription Sig Dispensed Refills Start Date End Date levofloxacin (LEVAQUIN) Take 1 Tab by mouth 10 Tab 0 03/18/2011 750 mg tablet daily for 10 days. documented in this encounter Progress Notes Ruiz Granados MD - 03/08/2011 1615 EDT Primary Care Internal Medicine Follow-up Note 03/08/2011 Chief Complaint Patient presents with ??? URI HPI: Zeeshan Gonzalez JrBianca is a 20 y.o. man who presents for follow up of pneumonia. He has been feeling ill since September of last year, with symptoms that have never resolved despite multiple treatments and workup. He has cough, productive of brown or yellow sputum. He has subjective fevers and chills. He has SOB, headache, nasal congestion, diarrhea, and nausea with vomiting. He has no appetite and along with this illness has lost about 40 pounds since Sep. He cannot recall what antibiotics he has been given, but has had several courses. From review of his chart he had azithromycin in Nov and doxycyclinein early January. Workup has included a CXR in Dec which showed lingular opacity consistent with atelectasis or evolving infection, CXR in January which showed RLL patchy opacity and possible pneumonia, and chest CT in mid January which had RLL tree in bud opacities read as suspicious for infection. He has history of asthma, not currently taking his inhalers but he has not been needing albuterol. He smokes cigarettes, currently using about 6-7 per day. He also smokes mariajuana. He has been tapering frequency of both because of his symptoms. He denies any illicit drug use or any history of IV drug use. He was tested for HIV last month, and this was negative. Patient Active Problem List Diagnoses Code ??? Other activity E029.9 ??? Obesity 278.00M ??? Acanthosis nigricans 701.2A ??? Depression 311L ??? Hypertension 401.9AJ ??? Asthma 493.90AE ??? Metabolic syndrome 277.7C Medications: Currently taking only sertraline, losartan, and a vitamin. ROS: 10 point ROS otherwise negative except as noted in HPI. Examination BP 100/60 Pulse 78 Temp(Src) 36.5 ??C (97.7 ??F) (Tympanic) Resp 20 Wt 110.224 kg (243 lb) General: Appears ill. Flat affect. Non-toxic. Eyes: PERRL, EOMI, sclerae white, conjunctivae pink. ENT and mouth: Normal without lesion. Neck: Supple. No thyromegaly or thyroid mass. Lymph Nodes: No cervical, clavicular, or axillary lymphadenopathy. Heart: Regular rhythm without murmur, katy, or rub. Chest: Clear to auscultation. Somewhat decreased sounds at right base but no wheezes or crackles. Abdomen: Soft. No mass, tenderness or organomegaly. Extremities: No cyanosis, clubbing or edema. Labs: Recent unimpressive CMP and CBC with diff. Neg HIV. Imaging: CT chest: 1. Diffuse centrilobular groundglass and scattered tree-in-bud opacities in the right lower lobe aresuspicious for infection. 2. Mild airway thickening with evidence of scattered air-trapping. 3. The remainder of the chest is normal for age. Please see accompanying CT abdomen for additional findings. Assessment and Plan: Zeeshan Gonzalez Jr. is a 20 y.o. man with history of productive cough, subjective fevers, nausea, vomiting, diarrhea, anorexia, and a 40 pound weight loss since Sep. He has not responded fully to treatment with azithromycin or doxycycline. Differential includes resistant organism, fungal infection, immunodeficiency (HIV negative last month), incomplete treatment (says he finished his courses of abx), or non-infectious process. His lack of significant improvement and especially weight loss are concerning. - 10 day course of levofloxacin - respiratory culture - Advised to stop smoking both cigarettes and mariajuana. Information on resources given and counseling in our clinic offered. - stop losartan, as blood pressure is low in clinic today. Could restart when he is feeling better. He is able to keep fluids down - close follow up in our clinic, with return visit in 3 weeks. He will call sooner if needed. - referral to pulmonary clinic. If symptoms resolve by follow up this could be cancelled. If symptoms do not improve may need more aggressive workup for fungal or non-infectious cause of symptoms. This patient was discussed with Dr. Meche Johnson. RUIZ GRANADOS MD I discussed the the patient with the resident at the time of the patient's visit. I agree with the findings and plan of care documented in the resident's note. 8:09 03/09/2011 MECHE JOHNSON MD documented in this encounter Plan of Treatment Scheduled Referrals Name Type Priority Associated Diagnoses Order S chedule AMB CONSULT Outpatient Referral Routine Pneumonia Ordered: PULMONARY 03/08/2011 documented as of this encounter Visit Diagnoses Diagnosis Pneumonia - Primary Pneumonia, organism unspecified documented in this encounter Discontinued Medications Medication Sig Discontinue Reason Start Date End Date metformin (GLUCOPHAGE-XR) Take 1 Tab by 07/27/2010 0 03/08/2011 500 mg XR mouth daily. tabletIndications: High triglycerides ursodiol (ACTIGALL) 300 mg Take 300 mg by 03/08/2011 capsule mouth 2 times daily. losartan (COZAAR) 25 mg Take 25 mg by tablet mouth daily. documented as of this encounter Care Teams Chute Tapper Relationship Specialty Start Date End Date Ilan Kelly MD PCP - General 01/29/11 03/18/13 1 [facility] [address] [place] [address] documented as of this encounter
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
--- OUTSIDE RECORDS SUMMARY | 2022-06-05 06:51 | XMS_ITS | Encounter Summary ---
:1990 Author Organization [facility] Address [address] [place] [address] Care Team Providers Name Role Phone Ilan Kelly MD Primary Care Provider Encounter Details Date Type Department Care Team Description 02/15/2011 Documentation Visit [facility] Jules Israel Rehabilitation Therapy - PT Medical Office Build [address] [place], [place] [id number] [place] [address] [phone] Social History Tobacco Use Types Packs/Day [...] 10:43 EDT documented as of this encounter Progress Notes Jules Israel - 02/15/2011 0849 EDT REHABILITATION THERAPIES MEDICAL OFFICE BUILDING ([facility]) [address] [facility] [address] Phone: [phone] Fax: [phone] Physical Therapy Contact Note MEDICAL OFFICE BUILDING ([facility]) [address] [facility] [address] Phone: [phone] Fax: [phone] Mr. Gonzalez failed to show for today's scheduled appointment. JULES ISRAEL, PT JULES ISRAEL, PT 02/15/2011 8:49 documented in this encounter Plan of Treatment Not on filedocumented as of this encounter Visit Diagnoses Not on filedocumented in this encounter Care Teams Residential Manager Relationship Specialty Start Date End Date Ilan Kelly MD PCP - General 01/29/11 03/18/13 1 [facility] [address] [place] [phone] documented as of this encounter
--- OUTSIDE RECORDS SUMMARY | 2022-06-05 06:51 | XMS_ITS | Encounter Summary ---
:1990 Author Organization [facility] Address [address] [place] [address] Care Team Providers Name Role Phone Sixto Sandoval MD Unavailable Wolf Bethea MD MPH Primary Care Provider [phone] Reason for Visit Reason Comments New Patient Visit NPV Encounter Details Date Type Department Care Team Description 12/01/2013 Office Visit [facility] John Chaudhari Abdom inal pain (Primary Dx); Gastroenterology - Juan C Lee MD LFTs abnormal [id number] [place] [address] [facility] [address] [place] [address] Social History Tobacco Use Types Packs/Day Years [...] Sign Reading Time Taken Comments Blood Pressure 122/75 12/01/2013 0853 EST Pulse 76 12/01/2013 0853 EST Temperature - - Respiratory Rate - - Oxygen Saturation - - Inhaled Oxygen Concentration - - Weight 96.6 kg (213 lb) 12/01/2013 0853 EST Height 172.7 cm (5' 8) 12/01/2013 0853 EST Body Mass Index 32.39 12/01/2013 0853 EST documented in this encounter Discharge Diagnoses Diagnosis 789.00 ABDOMINAL PAIN UNSPEC SITE[ICD-9- CM] 790.6 ABN BLOOD CHEMISTRY NEC[ICD-9-CM] documented in this encounter Discharge Disposition Disposition Code Departure Means Destination Auto Discharge documented in this encounter Progress Notes John Chaudhari MD - 12/01/2013 1611 EST GI Clinic Note 23 y.o.male We are asked to see Zeeshan Gonzalez Jr. in consultation for abdominal pain and ?melena by Wolf Bethea. HPI Abdominal pain - ~12 month duration - epigastric area radiating to LLQ - intermittent - worse with stress, not taking lactase supplements - some improvement on omeprazole in August- could not afford medication - associated nausea - associated constipation and ?tenesmus - last bowel motion this AM- brown, formed, ?red spots - associated melena- 2 episodes last month and earlier this week - weight loss 25lbs over past 12 months - subjective sweats and malaise - no hematemesis or hematochezia History of NSAID use- Aleve for headache in August 2013. No prior history of peptic ulcer disease or EGD. No family history of celiac disease or inflammatory bowel disease. Prior evaluation includes blood work (see below), CT abdomen/pelvis and numerous ER and PCP visits. Patient denies regular alcohol use. Patient reports experimental intranasal drug use many years ago and denies any history of intravenous drug use. Patient denies history of herbal supplement use. Past Medical History Past Surgical History Diagnosis Date Procedure Laterality Date ??? Asthma ??? Tympanostomy tube placement ??? Chicken pox As a child ??? Depression Family History History Problem Relation Age of Onset Substance Use Topics ??? Hypertension Father ??? Smoking status: Current Every Day Smoker -- 0.50 packs/day for 7 years ??? Diabetes Maternal Grandmother Types: Cigarettes ??? Diabetes Paternal Grandmother ??? Smokeless tobacco: Never Used ??? High Cholesterol Father Comment: off and on for 7 years ??? Asthma Maternal Grandfather ??? Alcohol Use: Yes ??? Diabetes Maternal Grandfather Comment: occasionally ??? High Cholesterol Maternal Grandfather ??? Heart Disease Maternal Grandfather ??? Stroke Maternal Grandfather ??? Stroke Paternal Grandmother ??? Celiac Disease Neg Hx ??? Inflammatory Bowel Disease Neg Hx ??? Esophageal Cancer Neg Hx ??? Stomach Cancer Neg Hx ??? Pancreatic Cancer Neg Hx ??? Colon Cancer Neg Hx ??? Raúl's Disease Neg Hx ??? Hemochromatosis Neg Hx Current Outpatient Prescriptions Medication Sig Dispense Refill ??? omeprazole (PRILOSEC) 40 mg capsule Take 1 Cap by mouth 2 times daily. 60 Cap 1 No current facility-administered medications for this visit. Allergies Allergen Reactions ??? Cats ??? Pollen Extracts ROS Full review of systems was negative except as described above. Examination BP 122/75 Pulse 76 Ht 172.7 cm (68) Wt 96.616 kg (213 lb) BMI 32.39 kg/m2 Gen- Well, NAD, A+Ox3, normal color ENT- MMM Lym- No LAD CVS- RRR RS- CTA Abd- Obese, striae, SNT, no organomegaly on palpation or percussion, BS+ Rectal- Brown stool, no melena, no blood, no mass Extr- Hands normal, no TREVOR, good pulses Laboratory Nov 30 2013 WCC 8 Hgb 15.3 MCV 89 Plt 205 February 2013 TB 0.7 ALT 89 AST [address] abdomen/pelvis- ?long segment thickening of the sigmoid and descending colon/?under-distension ofcolon Assessment 23 year old male with history of NSAID use, abdominal pain and questionable melena most likely secondary to peptic ulcer disease. Differential diagnosis includes functional dyspepsia and inflammatory bowel disease. Will resume PPI and if no improvement following full course or if bleeding symptoms recur, will consider upper endoscopy. Based on body habitus, etiology of abnormal liver function tests is most likely secondary to non-alcoholic fatty liver disease. Will check blood work to rule out Raúl's disease, viral hepatitis, autoimmune hepatitis, hemochromatosis and celiac disease. Plan 1. Resume omeprazole 40mg BID for 2 months 2. Check serum h.pylori antibody 3. Check ceruloplasmin, hep C antibody, serum immunoglobulins, iron studies and anti-TTG antibody Seen with Dr Chaudhari. ANKIT FUNK MD 12/01/2013 I have seen and examined the patient along with gastroenterology fellow Dr Funk, and I agree with thefindings and plan as outlined above. The etiology of symptom complex is compatible with peptic ulcerdisease. Given the absence of clinically significant bleeding, it is appropriate to defer endoscopicevaluation unless abdominal pain persists or recurs after discontinuation of omeprazole. The etiology of elevated serum ALT merits investigation; will include hepatitis B surface antigen in testing. I will provide the test results to the patient by letter, which will include any additional recommendations. John Chaudhari MD Attending Physician Gastroenterology & Hepatology documented in this encounter Plan of Treatment Not on filedocumented as of this encounter Results HELICOBACTER PYLORI IGG ANTIBODY (12/01/2013 10:28 EST) H. Pylori IgG Ab NegativeComment: [facility] Assayed utilizing the BCNXX system. Specimen Blood specimen (specimen) Performing Organization Address [facility] Phon e Number [facility] [address] [place] [address] SERVICES [facility] [address] [place] [address] CK (12/01/2013 10:28 EST) Pathologist Sig nature CK 219 0 - 250 U/L [facility] Specimen Blood specimen (specimen) Performing Organization Address [facility]/ZIP [facility] Phon e Number [facility] [address] [place] [address] SERVICES [facility] [address] [place] [address] IBC (12/01/2013 10:28 EST) Pathologist Sig nature TIBC 352 261 - 462 ug/dl [facility] Specimen Blood specimen (specimen) Performing Organization Address [facility]/ZIP [facility] Phon e Number [facility] [address] [place] [address] SERVICES [facility] [address] [place] [address] IRON (12/01/2013 10:28 EST) Pathologist Sig nature Iron 108 70 - 180 ug/dl [facility] Specimen Blood specimen (specimen) Performing Organization Address [facility]/ZIP Code Phon e Number [facility] [address] [place] [address] SERVICES [facility] [address] [place] [address] FERRITIN (12/01/2013 10:28 EST) Pathologist Sig nature Ferritin 137 22 - 322 ng/mL [facility] Specimen Blood specimen (specimen) Performing Organization Address [facility]/ZIP [facility] Phon e Number [facility] [address] [place] [address] SERVICES [facility] [address] [place] [address] CERULOPLASMIN (12/01/2013 10:28 EST) Cerulplasmin 20.2 15.0 - 30.0 [facility] Comment: mg/dL Performed by: [facility], [address], [place] [address], Shift Leader: Marina Mitchell, Ph.D. Specimen Blood specimen (specimen) Performing Organization Address [facility] Phon e Number [facility] [address] [place] [address] SERVICES [facility] [address] [place] [address] TTG AB, IGA, S (12/01/2013 10:28 EST) tTG Ab, IgA, S <1.2 <4.0 [facility] Comment: (Negative) LAB Performed by: [facility], [address], [place], [place] [address], Shift Leader: Marina Mitchell, Ph.D. Specimen Blood specimen (specimen) Performing Organization Address City/[facility] Phon e Number [facility] [address] [place] [address] SERVICES [facility] [address] [place] [address] IMMUNOGLOBULINS (12/01/2013 10:28 EST) Pathologist Sig nature IgG 1,300 751 - 1,560 mg/dl [facility] IgA 183 82 - 453 mg/dl [facility] IgM 99 46 - 304 mg/dl [facility] Specimen Blood specimen (specimen) Performing Organization Address [facility]/ZIP [facility] Phon e Number [facility] [address] [place] [address] SERVICES [facility] [address] [place] [address] HEPATITIS C ANTIBODY (12/01/2013 10:28 EST) Pathologist Sig nature Hepatitis C Ab NegativeComment: [facility] Reference Range: Negative Specimen Blood specimen (specimen) Performing Organization Address City/State/ZIP Code Phon e Number [facility] [address] [place] [address] SERVICES [facility] [address] [place] [address] HEPATITIS B SURFACE ANTIGEN (12/01/2013 10:28 EST) Hepatitis B Surface NegativeComment: [facility] Ag Reference Range: Negative Specimen Blood specimen (specimen) Performing Organization Address City/[facility]/ZIP Code Phon e Number [facility] [address] [place] [address] SERVICES [facility] [address] [place] [address] documented in this encounter Visit Diagnoses Diagnosis Abdominal pain - Primary Abdominal pain, unspecified site LFTs abnormal Other abnormal blood chemistry documented in this encounter Historical Medications This list may reflect changes made after this encounter. Medication Sig Dispensed Refills Start Date End Date omeprazole (PRILOSEC) 20 Take 40 mg by mouth 2 0 02/04/2017 mg capsuleIndications: times daily. Reported Abdominal pain, LFTs on 02/01/2017 abnormal added in this encounter Care Teams Electronic Data Processing Auditor Relationship Specialty Start Date End Date Sixto Sandoval MD PCP - Alternate 01/05/13 12/25/15 [address] [place] [phone] Wolf Bethea MD MPH PCP - General 03/19/13 06/03/14 1 [facility] [address] [place] [phone] documented as of this encounter
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
--- OUTSIDE RECORDS SUMMARY | 2022-06-05 06:51 | XMS_ITS | Encounter Summary ---
:1990 Author Organization [facility] Address [address] [place] [address] Care Team Providers Name Role Phone Ilan Kelly MD Primary Care Provider Sixto Sandoval MD Unavailable Reason for Visit Reason Comments Abdominal Pain Diarrhea Emesis ? blood Encounter Details Date Type Department Care Team Description 01/05/2013 Office Visit [facility] Unknown, Andrea mabry MD Hematemesis (Primary Adult Primary Care - Wolf Bethea MD MPH 1 [facility] Level [address] [place] [address] Dx) [place] Sixto Sandoval MD [address] [place] [phone] 1 [place], [place] [phone] Social History Tobacco Use Types Packs/Day Years [...] Sign Reading Time Taken Comments Blood Pressure 134/64 01/05/2013 1333 EST Pulse 92 01/05/2013 1333 EST Temperature 36.8 ??C (98.3 ??F) 01/05/2013 1333 EST Respiratory Rate 24 01/05/2013 1333 EST Oxygen Saturation - - Inhaled Oxygen Concentration - - Weight 108.4 kg (239 lb) 01/05/2013 1333 EST Height - - Body Mass Index 35.29 09/01/2012 0818 EDT documented in this encounter Patient Instructions Patient InstructionsSixto Sandoval MD - 01/05/2013 14:18 EST 1) Try to hold off using marijuana for now 2) Take Omeprazole twice a day 3) If you vomit red material again, please go to the ED 4) Please go to the lab for bloodwork. documented in this encounter Ordered Prescriptions Prescription Sig Dispensed Refills Start Date End Date omeprazole (PRILOSEC) 20 Take 1 Cap by mouth 60 Cap 1 01/21/2013 mg capsule 2 times daily. documented in this encounter Progress Notes Wolf Bethea MD - 01/16/2013 1021 EST Attestation statement: I personally reviewed the case with the resident at the time of the visit and agree with the residents history, physical, assessment, and plan as documented in the record. Wolf Bethea MD Sixto Gage MD - 01/05/20132049 EST Subjective: Patient ID: Zeeshan Gonzalez Jr. is an 22 y.o. male. Chief Complaint Patient presents with ??? Abdominal Pain ??? Diarrhea ??? Emesis ? blood HPI Comments: 22 yo M with obesity who presents after an episode of vomiting. Patient reports he vomited x1 this AM. Color was of red paste. Has also had nausea, abdominal pain, diarrhea for months. No clear onset. Pain, nausea improve sometimes after bowel movements. Has diarrhea 4-5x per day, sometimes formed sometimes liquid. Also has had chest pain described as tightness, over midline chest. Tried fatuma-seltzer 1x without relief. No SOB or CP. No fevers. Has chronic subjective cold feeling but no new chills. No melena or BRBPR. No sick contacts. Works at a [employer]. Reports father history of chronic abdominal pains and frequently defecates but has not had this worked up. Reports chronic sore throat. Has chronic cough unchanged. Smokes 1 ppd tobacco. Uses marijuana almost daily. Symptoms not associated with cutting down. Used to use Marijiuana more before meeting girlfriend last April. Abdominal Pain Associated symptoms include diarrhea and vomiting. Pertinent negatives include no dysuria, fever, hematuria or melena. Diarrhea Associated symptoms include abdominal pain, chills, coughing and vomiting. Pertinent negatives include no fever. Emesis Associated symptoms include abdominal pain, chest pain, chills, coughing and diarrhea. Pertinent negatives include no fever. Patient Active Problem List Diagnoses ??? Other activity ??? Obesity ??? Acanthosis nigricans ??? Depression ??? Hypertension ??? Asthma ??? Metabolic syndrome X No outpatient prescriptions have been marked as taking for the 01/05/13 encounter (Office Visit) withSixto Sandoval MD. Review of Systems Constitutional: Positive for chills. Negative for fever. Respiratory: Positive for cough. Negative for shortness of breath. Cardiovascular: Positive for chest pain. Gastrointestinal: Positive for vomiting, abdominal pain and diarrhea. Negative for blood in stool and melena. Genitourinary: Negative for dysuria and hematuria. - See HPI Objective: BP 134/64 Pulse 92 Temp(Src) 36.8 ??C (98.3 ??F) (Tympanic) Resp 24 Wt 108.41 kg (239 lb) Physical Exam Vitals reviewed. Constitutional: He appears well-developed and well-nourished. No distress. HENT: Posterior oropharynx mildly erythematous Neck: Bilateral anterior cervical lymphadenopathy Cardiovascular: Normal rate, regular rhythm and normal heart sounds. No murmur heard. Pulmonary/Chest: Effort normal and breath sounds normal. No respiratory distress. Abdominal: Obese, soft, +BS. ttp over LUQ and LLQ. Pain radiates to RUQ when pressed. Unable to appreciate hepato or splenomegaly due to obese abdomen. Negative tate's. Skin: He is not diaphoretic. Assessment / Plan: Shecristina was seen today for abdominal pain, diarrhea and emesis. Concern that patient's red emesis was hematemesis. Possible causes of patient's symptoms would be peptic ulcer disease, GERD, gastritis, cannabinoid hyperemesis syndrome, IBS, viral syndrome, IBD. For now would treat for PUD. Also test H&amp ;H to ruleout clinically significant amount of blood loss causing anemia. Instructed patient to avoid NSAID. Hematemesis - Helicobacter Pylori IgG Antibody; Future - Hemagram; Future - told patient to try to quit cannabis or at least cut down - omeprazole (PRILOSEC) 20 mg capsule; Take 1 Cap by mouth 2 times daily. Patient was discussed with Dr. Bravo Sandoval MD 01/05/2013 20:50 documented in this encounter Plan of Treatment Not on filedocumented as of this encounter Results HEMAGRAM (01/05/2013 15:04 EST) Pathologist Sig nature WBC 7.58 4.0 - 10.4 K/cmm [...] Organization Address City/State/ZIP Code Phon e Number [facility] [address] [phone] SERVICES [facility] [address] [place] [address] HELICOBACTER PYLORI IGG ANTIBODY (01/05/2013 15:04 EST) H. Pylori IgG Ab NegComment: Assayed [facility] utilizing the RawData DSX system. Specimen Blood specimen (specimen) Performing Organization Address City/State/ZIP Code Phon e Number [facility] [address] [place] [address] SERVICES [facility] [address] [place] [address] documented in this encounter Visit Diagnoses Diagnosis Hematemesis - Primary documented in this encounter Care Teams Oven Operator Automatic Relationship Specialty Start Date End Date Ilan Kelly MD PCP - General 01/29/11 03/18/[address] [place] [address] [address] [place] [phone] Sixto Sandoval MD PCP - Alternate 01/05/13 12/25/[address] [place] [phone] documented as of this encounter
--- OUTSIDE RECORDS SUMMARY | 2022-06-05 06:51 | XMS_ITS | Encounter Summary ---
:1990 Author Organization [facility] Address [address] [place] [address] Care Team Providers Name Role Phone Ilan Kelly MD Primary Care Provider Sixto Sandoval MD Unavailable Reason for Visit Reason Comments Testicular Pain Abdominal Pain Encounter Details Date Type Department Care Team Description 01/14/2013 Office Visit [facility] Unknown, Prov MD raghavendra Testicular pain Adult Primary Care - Bi wOen MD [address] [phone] (Primary Dx) [address] [phone] Social History Tobacco Use Types Packs/Day Years [...] Sign Reading Time Taken Comments Blood Pressure 100/50 01/14/2013 1531 EST Pulse 84 01/14/2013 1531 EST Temperature 36.8 ??C (98.2 ??F) 01/14/2013 1531 EST Respiratory Rate 20 01/14/2013 1531 EST Oxygen Saturation - - Inhaled Oxygen Concentration - - Weight - - Height - - Body Mass Index - - documented in this encounter Progress Notes Bi Owen MD - 01/14/2013 1559 EST Internal Medicine Outpatient Clinic Note Date of Service: 01/14/2013 CC: Testicular pain, abdominal pain HPI: Mr. Gonzalez presents today for evaluation of 2 months of bilateral testicular pain, along with many months of abdominal pain. States he is very nervous about both symptoms as his father had abdominal pain and was ultimately diagnosed with hernias and needed surgery. His other family members have suggested his symptoms may be those of testicular cancer, and the reading he has done online has him worriedabout this as well. Regarding the testicular pain, he has constant heaviness sensation. Nothing makes it better. He does not have the pain when he is busy and unable to think about it. Has not felt firm masses but maybe lumpy areas. No difficulty obtaining or maintaining an erection. No problems with ejaculation. Normal urinary function. States his testicles are smaller than normal over the past few years and that they were 3 times bigger in the past. His abdominal pain is generalized overall, at times in the epigastric region. Was told he might have gastroparesis in past but no longer takes Reglan because it did not help his symptoms. His fiancee is with him and states he has night sweats every night, soaking his pillow with sweat. Pt states this has been a problem for years. No weight loss. Review of Systems 10 point ROS completed with pertinent positives listed above. All others negative. Problem List Patient Active Problem List Diagnoses ??? Other activity ??? Obesity ??? Acanthosis nigricans ??? Depression ??? Hypertension ??? Asthma ??? Metabolic syndrome X Allergies: Allergies Allergen Reactions ??? Cats ??? Pollen Extracts Objective: Blood pressure 100/50, pulse 84, temperature 36.8 ??C (98.2 ??F), temperature source Tympanic, resp.rate 20. There is no height or weight on file to calculate BMI. Gen: obese, nervous male accompanied by fiancee who hugs him frequently to provide reassurance Neck: supple, no adenopathy, no thyromegaly, no JVD Abd: obese, soft, NT/ND, + NABS, no appreciable organomegaly. No direct hernia noted. : normal penis, normal testicular size. No masses. Non-tender. No epididymitis noted. No indirect hernias noted Current Outpatient Prescriptions on File Prior to Visit Medication Sig Dispense Refill ??? omeprazole (PRILOSEC) 20 mg capsule Take 1 Cap by mouth 2 times daily. 60 Cap 1 ??? ASPIRIN/SOD BICARB/CITRIC ACID (MIRIAM-SELTZER ORAL) Take by mouth. ??? albuterol (PROVENTIL HFA, VENTOLIN HFA) 90 mcg/actuation inhaler Inhale 2 Puffs as directed every 4 hours as needed for Wheezing. 1 Inhaler 2 Assessment: 22 y.o. man with metabolic syndrome, asthma and tobacco abuse presents for evaluation of testicular pain and chronic abdominal pain. No testicular masses or abnormalities on exam today and abdominal exam similarly unremarkable. No direct or indirect hernia noted. Unsure what the cause of his pain is but do feel he is significantly anxious and stressed at work, he agrees with this assessment. Reassured that no evidence to suggest testicular cancer or hernia as the etiology of his pain. Plan: Zeeshan was seen today for testicular pain and abdominal pain. Diagnoses and associated orders for this visit: Testicular pain - normal examination - reassurance provided - patient advised to call clinic with any significant changes - pt counseled to decrease/discontinue marijuana use - pt advised to quit smoking Follow up - RTC as needed with new or worsening symptoms Patient discussed with Dr. Jorden OWEN MD--PGY 3 Pager # [phone] Attestation statement: I discussed the patient with the resident/fellow at the time of the visit. I agree with the findings and the plan of care documented in the resident's/fellow's note. RIGO LEONARDO MD 01/14/2013 16:42 documented in this encounter Plan of Treatment Not on filedocumented as of this encounter Visit Diagnoses Diagnosis Testicular pain - Primary Unspecified disorder of male genital org ans documented in this encounter Discontinued Medications Medication Sig Discontinue Reason Start Date End Date azithromycin (ZITHROMAX) Take 2 tablets Patient Stopped 08/30/2012 01/14/2013 250 mg tablet (500 mg) on Day 1, Taking followed by 1 tablet (250 mg) once daily on Days 2 through 5. loratadine (CLARITIN) 10 Take 10 mg by Therapy completed 01/14/2013 mg tablet mouth daily. metoclopramide HCl Take 1 Tab by Therapy completed 09/01/2012 (REGLAN) 10 mg tablet mouth 4 times daily as needed for Nausea. documented as of this encounter Care Teams High School Coordinator Relationship Specialty Start Date End Date Ilan Kelly MD PCP - General 01/29/11 03/18/13 1 [facility] [address] [place] [phone] Sixto Sandoval MD PCP - Alternate 01/05/13 12/25/15 [address] [place] [address] documented as of this encounter
--- OUTSIDE RECORDS SUMMARY | 2022-06-05 06:51 | XMS_ITS | Encounter Summary ---
:1990 Author Organization [facility] Address [address] [place] [address] Care Team Providers Name Role Phone Ilan Kelly MD Primary Care Provider Reason for Visit Reason Comments Depression Insomnia Tremors Encounter Details Date Type Department Care Team Description 10/10/2011 Office Visit [facility] Unknown, Prov MD raghavendra Depression (Primary Adult Primary Care - Bi Degroot MD [address] [place] [phone] Dx) Baldev Frey MD [address] [place] [address] Social History Tobacco Use Types [...] Sign Reading Time Taken Comments Blood Pressure 110/50 10/10/2011 1042 EST Pulse 84 10/10/2011 1042 EST reg Temperature 36.8 ??C (98.2 ??F) 10/10/2011 1042 EST Respiratory Rate 20 10/10/2011 1042 EST Oxygen Saturation - - Inhaled Oxygen Concentration - - Weight 102.7 kg (226 lb 8 oz) 10/10/2011 1042 EST Height - - Body Mass Index 34.44 10/04/2011 1704 EST documented in this encounter Ordered Prescriptions Prescription Sig Dispensed Refills Start Date End Date sertraline (ZOLOFT) 100 Take 1 Tab by mouth 30 Tab 2 03/18/2012 mg tabletIndications: daily. Take 1/2 Depression tablet by mouth for 5 days then increase to 1 full tab daily. documented in this encounter Progress Notes Baldev Chinchilla - 10/10/2011 1140 EST Subjective: Patient ID: Zeeshan Gonzalez Jr. is an 21 y.o. male. Chief Complaint Patient presents with ??? Depression ??? Insomnia ??? Tremors HPI Zeeshan was seen today for exacerbation of his chronic depression. Reports that he has been off his Zoloft for several months and has experienced worsening depression. Was seen 03/2011 at the [facility] ER for Ambien OD (~6-7 pills) and again on 10/04/2011 for hand injury after punching a wall. 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 He reports taking at least 10 Lorazepam on Saturday night because he just wanted to sleep. Denies overt thoughts of self harm at the time. Then went to sleep and doesn't remember anything until this morning. Was told that he got out of bed briefly yesterday. Denies current thoughts of self harm orharm to others. He reports feeling depressed about his family's financial situation, his relationship with his step-father, everything. 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 Reports poor appetite, eating mostly cereal. Zeeshan reports difficulty sleeping, usually falling asleep at 3am and awaking at 6-7am. Has used Ambien effectively in the past and would like to use it again. Reports currently smoking 1ppd, drinks EtOH to varying amounts, preferring hard alcohol. He is sexually active and uses Condoms occasionally. He has been tested for STIs in the past but does not remember when. He has no history of STIs. Concerned that he may have ADHD as he notes that he shakes all the time. This has been going on since 2008. He has not been formally diagnosed with ADHD in the past. Patient Active Problem List Diagnoses ??? Other activity ??? Obesity ??? Acanthosis nigricans ??? Depression ??? Hypertension ??? Asthma ??? Metabolic syndrome Outpatient Prescriptions Prior to Visit Medication Sig Dispense Refill ??? zolpidem (AMBIEN) 10 mg tablet Take 1 Tab by mouth at bedtime as needed for Sleep. 30 Tab 0 ??? albuterol (PROVENTIL HFA, VENTOLIN HFA) 90 mcg/Actuation inhaler Inhale 2 Puffs as directed every 6 hours as needed for Wheezing. 1 Inhaler 11 ??? ondansetron (ZOFRAN) 4 mg tablet Take 1 Tab by mouth every 8 hours as needed for Nausea. 30 Tab 1 ??? fluticasone (FLOVENT) 110 mcg/Actuation inhaler Inhale 2 Puffs as directed 2 times daily. 1 Inhaler 2 ??? sertraline (ZOLOFT) 100 mg tablet Take 1 Tab by mouth daily. 30 Tab 2 ??? loratadine (CLARITIN) 10 mg tablet Take 1 Tab by mouth daily. 30 Tab 5 ??? Melatonin 3 mg Tab Take 9 mg by mouth at bedtime. ??? tocopheryl acetate (VITAMIN E) 200 unit capsule Take 400 Units by mouth daily. Review of Systems Constitutional: Negative for fever, chills and weight loss. HENT: Negative for congestion and sore throat. Respiratory: Negative for cough, hemoptysis, shortness of breath and wheezing. Cardiovascular: Negative for chest pain and palpitations. Gastrointestinal: Negative for nausea, vomiting and abdominal pain. Skin: Negative for itching and rash. Neurological: Negative for dizziness, tingling, seizures, loss of consciousness and headaches. Psychiatric/Behavioral: Positive for depression and substance abuse. Negative for suicidal ideas andhallucinations. The patient is nervous/anxious and has insomnia. - See HPI Objective: BP 110/50 Pulse 84 Temp(Src) 36.8 ??C (98.2 ??F) (Tympanic) Resp 20 Wt 102.74 kg (226 lb 8 oz) Physical Exam Constitutional: He is oriented to person, place, and time. He appears well- developed and well-nourished. No distress. HENT: Head: Normocephalic and atraumatic. Eyes: Conjunctivae are normal. Pupils are equal, round, and reactive to light. Right eye exhibits nodischarge. Left eye exhibits no discharge. No scleral icterus. Neck: Normal range of motion. No tracheal deviation present. Cardiovascular: Normal rate and regular rhythm. Pulmonary/Chest: Effort normal. No stridor. No respiratory distress. He has no wheezes. Abdominal: Soft. He exhibits no distension. Neurological: He is alert and oriented to person, place, and time. Coordination normal. Skin: Skin is warm and dry. He is not diaphoretic. No erythema. Psychiatric: Patient presenting somewhat subdued. Tendency for vague answers. Fidgeting throughout visit. Attention shifting. Easily distracted. Assessment / Plan: Zeeshan was seen today for depression, insomnia and tremor. His current symptoms are likely multifactorial--depression and anxiety appear to be at the center of this. For now would favor treating anxiety/depression with resumption of Zoloft and reassess situation in 1-2 weeks. Patient has no active SI/HI and feels safe to return home. His insomnia is likely related to the depression/anxiety, yet may need further additional treatment. If depressive symptoms resolve without improvement in insomnia wouldconsider addition of Mirtazepine. Given patient's substance abuse history and OD of ambien would avoid further use of this agent. Once his depression and anxiety are more sufficiently controlled it maybe appropriate to further evaluate for presence of ADHD. Zeeshan is not currently interested in engaging in psychotherapy--readdressing this in the future may make sense particularly if his response to SSRIs is sub-optimal. Depression - sertraline (ZOLOFT) 100 mg tablet; Take 1 Tab by mouth daily. Take 1/2 tablet by mouth for 5 days then increase to 1 full tab daily. - F/U in 1-2 weeks Patient discussed [address] Degroot I discussed the patient with the resident at the time of the visit. I agree with the findings and the plan of care documented in their note. Bi Degroot MD 11/21/2011 9:53 documented in this encounter Plan of Treatment Not on filedocumented as of this encounter Visit Diagnoses Diagnosis Depression - Primary Depressive disorder, not elsewhere class ified documented in this encounter Discontinued Medications Medication Sig Discontinue Reason Start Date End Date fluticasone (FLOVENT) Inhale 2 Puffs as Patient Stopped Taking 06/201110/10/2011 110 mcg/Actuation directed 2 times inhalerIndications: daily. Cough Melatonin 3 mg Tab Take 9 mg by mouth Patient Stopped Taking 200910/10/2011 at bedtime. ondansetron (ZOFRAN) 4 Take 1 Tab by mouth Patient Stopped Taking 0 01/23/2011 10/10/2011 mg tabletIndications: every 8 hours as Nausea & vomiting needed for Nausea. tocopheryl acetate Take 400 Units by Patient Stopped Taking 10/10/2011 (VITAMIN E) 200 unit mouth daily. capsule sertraline (ZOLOFT) Take 1 Tab by mouth Reorder 11/22/2010 1 12/10/2010 100 mg daily. tabletIndications: Depression documented as of this encounter Care Teams Food Trades Assistants Relationship Specialty Start Date End Date Ilan Kelly MD PCP - General 01/29/11 03/18/13 1 [facility] [address] [place] [id number] documented as of this encounter
--- OUTSIDE RECORDS SUMMARY | 2022-06-05 06:51 | XMS_ITS | Encounter Summary ---
:1990 Author Organization [facility] Address [address] [place] [address] Care Team Providers Name Role Phone Ilan Kelly MD Primary Care Provider Sixto Sandoval MD Unavailable Reason for Visit Reason Comments Groin Pain Pt to ED with bilateral groi n pain for months Abdominal Pain Also c/o generalised abdomin al pain, also for months which radiates into his back Encounter Details Date Type Department Care Team Description 01/21/2013 Emergency [facility] Amaury Vasquez MD [address] [facility], [facility], [address] [place] [address] Abdominal pain Emergency Department Emergency, MD Pedro Pablo (Primary Dx) - [facility] [address] [place] [address] Social History Tobacco Use Types [...] Reading Time Taken Comments Blood Pressure 132/80 01/21/2013 1327 EST Pulse 70 01/21/2013 1128 EST Temperature 35.9 ??C (96.6 ??F) 01/21/2013 1128 EST Respiratory Rate 16 01/21/2013 1327 EST Oxygen Saturation 100% 01/21/2013 1327 EST Inhaled Oxygen Concentration - - Weight 108 kg (238 lb) 01/21/2013 1128 EST Height 175.3 cm (5' 9) 01/21/2013 1128 EST Body Mass Index 35.15 01/21/2013 1128 EST documented in this encounter Discharge Instructions Amaury Jackson MD - 01/21/2013 Take medications as instructed. Followup the primary care physician as needed. Eat multiple small meals throughout the day. Avoid a single large meal at the end of the day. Avoid alcohol, soda, coffee, aspirin and ibuprofen. AttachmentsThe following attachments cannot be sent through Care Everywhere. ABDOMINAL PAIN: AFTER YOUR VISIT TO THE EMERGENCY ROOM ([facility])documented in this encounter Medications at Time of Discharge Medication Sig Dispensed Refills Start Date End Date ASPIRIN/SOD BICARB/CITRIC Take by mouth. 0 08/21/2013 ACID (MIRIAM-SELTZER ORAL) pantoprazole (PROTONIX) 20 Take 2 Tabs by 30 Tab 0 01/2102/02/2013 mg tablet mouth daily. documented as of this encounter Ordered Prescriptions Prescription Sig Dispensed Refills Start Date End Date pantoprazole (PROTONIX) 20 Take 2 Tabs by 30 Tab 0 01/2102/02/2013 mg tablet mouth daily. documented in this encounter Discharge Disposition Disposition Code Departure Means Destination Home or Self Care documented in this encounter ED Notes Macey Caldwell RN - 01/21/2013 1327 EST Pt is alert, skin warm and dry with normal color. Pt ambulatory at time of discharge aury Mercado MD - 01/21/2013 1217 EST DOS: 01/21/2013 Chief Complaint Patient presents with ??? Groin Pain Pt to ED with bilateral groin pain for months ??? Abdominal Pain Also c/o generalised abdominal pain, also for months which radiates into his back The patient is a 22 y.o. male who presents today with Groin Pain and Abdominal Pain HPI Comments: The patient is a 22-year-old male with a history of obesity, depression, and hypertension who presents with a one-month history of epigastric abdominal pain. Patient describes intermittent nausea and constipation alternating with diarrhea. Patient states that he was seen by his primary care physician 2 weeks ago and started on Prilosec. Patient states that Prilosec has not helped. Patient states he has had a diminished appetite but denies any loss of weight. Patient describes crampy pain. Patient denies fevers or chills. Patient denies feeling lightheaded or dizzy. Patient denies chest pain, shortness of breath or heart palpitations. Patient denies black or bloody stools. Patient notes occasional testicular pain. Currently he has no testicular pain. Patient denies back pain. Patientdenies distal numbness or tingling. Patient denies focal weakness. Patient now presents for further evaluation and treatment. The history is provided by the patient. Abdominal Pain This is a chronic problem. The current episode started more than 1 week ago. The problem occurs daily. The problem has not changed since onset.The pain is associated with an unknown factor. The pain islocated in the epigastric region. The quality of the pain is cramping. The pain is moderate. Associated symptoms include diarrhea, nausea and constipation. Pertinent negatives include anorexia, fever, hematochezia, melena, vomiting, dysuria, frequency, hematuria, headaches, arthralgias and myalgias. The symptoms are aggravated by palpation. Nothing relieves the symptoms. His past medical history doesnot include gallstones, ulcerative colitis or Crohn's disease. Review of Systems Constitutional: Negative for fever, chills, diaphoresis, appetite change, fatigue and unexpected weight change. HENT: Negative for hearing loss, ear pain, sore throat and ear discharge. Eyes: Negative for photophobia and visual disturbance. Gastrointestinal: Positive for nausea, abdominal pain, diarrhea and constipation. Negative for vomiting, blood in stool, melena, hematochezia, abdominal distention, anal bleeding and anorexia. Genitourinary: Negative for dysuria, urgency, frequency, hematuria and flank pain. Musculoskeletal: Negative for myalgias, back pain and arthralgias. Skin: Negative for rash. Neurological: Negative for dizziness, weakness and headaches. Hematological: Negative for adenopathy. Psychiatric/Behavioral: Negative for confusion and agitation. All other systems reviewed and are negative. [...] Artery Disease Other great-uncle Vital Signs Temp: 35.9 ??C (96.6 ??F) Temp src: Tympanic Pulse: 70 Heart Rate: 69 BPM Resp: 16 SpO2: 100 % BP: 132/80 mmHg BP Device: BP Machine Patient Position: Sitting BP Cuff Location: Left arm O2 Device: None (Room air) Physical Exam Nursing note and vitals reviewed. Constitutional: He is oriented to person, place, and time. He appears well- developed and well-nourished. No distress. HENT: Head: Normocephalic and atraumatic. Nose: Nose normal. Mouth/Throat: Oropharynx is clear and moist. Eyes: Conjunctivae and EOM are normal. Pupils are equal, round, and reactive to light. Neck: Normal range of motion. Neck supple. No tracheal deviation present. Cardiovascular: Normal rate, regular rhythm, normal heart sounds and intact distal pulses. Pulmonary/Chest: Effort normal and breath sounds normal. No respiratory distress. He has no rales. Abdominal: Soft. Bowel sounds are normal. He exhibits no distension. There is no tenderness. There is no rebound and no guarding. Genitourinary: Genitalia-no inguinal hernias Nontender testicles, no scrotal swelling, nontender epididymis No genital lesions No urethral discharge Musculoskeletal: Normal range of motion. He exhibits no tenderness. Neurological: He is alert and oriented to person, place, and time. He has normal strength. He is notdisoriented. No cranial nerve deficit or sensory deficit. Skin: Skin is warm and dry. No rash noted. Psychiatric: He has a normal mood and affect. Radiology orders: None Procedures ED Course: A medical screening exam was performed. The patient is a 22-year-old male who presents with a one-month history of intermittent abdominal pain accompanied by occasional diarrhea and constipation. Physical exam as above. Patient a soft nontender abdomen. Genital exam was normal. No hernias present POC urine-trace blood Patient be discharged home on Protonix. Patient will void aspirin, ibuprofen, alcohol, soda and coffee. Patient multiple small meals throughout the day. Patient discharged home with his mother. Disposition: Discharged The patient's pain was managed to an adequate level weighing risk vs. benefit of further medications. Upon departure from the Emergency Department, the patient's pain was 0 on a zero to ten scale. Condition at departure from the Emergency Department: Stable Discharge Prescriptions New Prescriptions PANTOPRAZOLE (PROTONIX) 20 MG TABLET Take 2 Tabs by mouth daily. MDM Number of Diagnoses or Management Options Abdominal pain: new, needed workup Amount and/or Complexity of Data Reviewed Clinical lab tests: ordered and reviewed Decide to obtain previous medical records or to obtain history from someone other than the patient: yes Obtain history from someone other than the patient: yes (Patient's mother) Independent visualization of images, tracings, or specimens: yes (Urinalysis) Risk of Complications, Morbidity, and/or Mortality Presenting problems: moderate Diagnostic procedures: moderate Management options: low General comments: 3 Patient Progress Patient progress: stable Final diagnoses: Abdominal pain PCP: Ilan Kelly MD 01/21/2013 13:36 documented in this encounter Miscellaneous Notes Scanned Note-Null - CR[employer]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 documented in this encounter Results (ABNORMAL) POCT URINE DIPSTICK (01/21/2013 12:23 EST) Color YELLOW [facility] Clarity, UA Clear [facility] Glucose Neg Neg [facility] Bilirubin Neg Neg [facility] Ketones Neg Neg [facility] Specific [place] >=1.030 1.001 - 1.035 [facility] Blood Trace (A) Neg [facility] pH 6.0 4.6 - 8.0 [facility] Protein Neg Neg [facility] Urobilinogen 0.2 0.2 - 1.0 [facility] E.U./dl LAB Nitrite Neg Neg [facility] Leuk Esterase Neg Neg [facility] skein dyer ID [id number]: [facility] Test performed at LAB Emergency Department Specimen Urine (substance) Performing Organization Address City/State/ZIP Code Phon e Number [facility] [address] [place] [address] [facility] [address] [place] [address] documented in this encounter Visit Diagnoses Diagnosis Abdominal pain - Primary Abdominal pain, unspecified site documented in this encounter Discontinued Medications Medication Sig Discontinue Reason Start Date End Date albuterol (PROVENTIL Inhale 2 Puffs as 08/30/2012 HFA, VENTOLIN HFA) 90 directed every 4 mcg/actuation inhaler hours as needed for Wheezing. omeprazole (PRILOSEC) Take 1 Cap by mouth 2 01/05/2013 01/21/2013 20 mg capsule times daily. omeprazole (PRILOSEC) Take 1 Cap by mouth 2 01/05/2013 01/21/2013 20 mg capsule times daily. 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
--- OUTSIDE RECORDS SUMMARY | 2022-06-05 06:51 | XMS_ITS | Encounter Summary ---
:1990 Author Organization [facility] Address [address] [place] [address] Care Team Providers Name Role Phone Ilan Kelly MD Primary Care Provider Reason for Visit Reason Comments Cough Aristides and green sputum, Hx of Pneumonia per pt Headache Sore Throat Chest Pain Fever Nasal Congestion Encounter Details Date Type Department Care Team Description 08/30/2012 Office Visit [facility] Gisella Reardon Bronchinikolas s, acute Adult Primary Care - MD Shabnam (Primary Dx) [address] [phone] Social History Tobacco Use Types Packs/Day [...] Sign Reading Time Taken Comments Blood Pressure 124/64 08/30/2012 1457 right arm, large cuff EDT Pulse 88 08/30/2012 1457 regular EDT Temperature 36.6 ??C (97.8 ??F) 08/30/2012 1457 EDT Respiratory Rate 12 08/30/2012 1457 EDT Oxygen Saturation - - Inhaled Oxygen - - Concentration Weight - - Height - - Body Mass Index - - documented in this encounter Patient Instructions Patient InstructionsGisella Reardon MD - 08/30/2012 15:12 EDT You should not go to work today due to your cough. documented in this encounter Ordered Prescriptions Prescription Sig Dispensed Refills Start Date End Date albuterol (PROVENTIL HFA, Inhale 2 Puffs as 1 Inhaler 2 01/21/2013 VENTOLIN HFA) 90 directed every 4 mcg/actuation inhaler hours as needed for Wheezing. azithromycin (ZITHROMAX) Take 2 tablets (500 6 Tab 0 01/14/2013 250 mg tablet mg) on Day 1, followed by 1 tablet (250 mg) once daily on Days 2 through 5. documented in this encounter Progress Notes Gisella Reardon MD - 08/30/2012 1505 EDT Subjective: Zeeshan Gonzalez Jr. is an 22 y.o. male who presents for evaluation of chills, myalgias and productive cough. Symptoms began 4 days ago and are gradually worsening since that time. Past history is significant for pneumonia. Heavy smoking (cigarettes and marijuana). He used his girlfriend albuterol inhaler last night. Says he used to use albuterol as a child for asthma. Current Outpatient Prescriptions Medication Sig Dispense Refill ??? ASPIRIN/SOD BICARB/CITRIC ACID (MIRIAM-SELTZER ORAL) Take by mouth. ??? loratadine (CLARITIN) 10 mg tablet Take 10 mg by mouth daily. Review of Systems Pertinent items are noted in Subjective/HPI Objective: General appearance: alert, fatigued Ears: normal TM's and external ear canals AU Throat/Mouth: normal findings: soft palate, uvula, and tonsils normal Neck: supple, symmetrical, trachea midline, no carotid bruit and no JVD Lymph nodes: Cervical, supraclavicular, and axillary nodes normal. Lungs: wheezes bilateral Heart: regular rate and rhythm, S1, S2 normal, no murmur, click, rub or gallop Abdomen: soft, non-tender; bowel sounds normal; no masses, no organomegaly Assessment: Acute Bronchitis, Reactive Airway Disease Plan: Z-pack for 5 days. Prescription for albuterol given for wheezing. Patient urged to stop smoking. Worsening signs and symptoms discussed. Rest, fluids, acetaminophen, and humidification. Recheck as needed for persistence, worsening, appearance of new symptoms. documented in this encounter Plan of Treatment Not on filedocumented as of this encounter Visit Diagnoses Diagnosis Bronchitis, acute - Primary Acute bronchitis documented in this encounter Historical Medications This list may reflect changes made after this encounter. Medication Sig Dispensed Refills Start Date End Date ASPIRIN/SOD BICARB/CITRIC Take by mouth. 0 08/21/2013 ACID (MIRIAM-SELTZER ORAL) added in this encounter Care Teams Security Operations Manager Relationship Specialty Start Date End Date Ilan Kelly MD PCP - General 01/29/11 03/18/13 1 [facility] [address] [place] [phone] documented as of this encounter
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
--- OUTSIDE RECORDS SUMMARY | 2022-06-05 06:51 | XMS_ITS | Encounter Summary ---
:1990 Author Organization [facility] Address [address] [place] [address] Care Team Providers Name Role Phone Ilan Kelly MD Primary Care Provider Sixto Sandoval MD Unavailable Reason for Visit Reason Comments Abdominal Pain Encounter Details Date Type Department Care Team Description 01/29/2013 Office Visit [facility] Unknown, Prov MD raghavendra GERD (gastroesophageal reflux disease) ( Primary Dx); Adult Primary Care - Pedro Canseco MD Abdominal pain [place] Marina Odell MD [address] [place] [address] Social History Tobacco Use Types [...] Sign Reading Time Taken Comments Blood Pressure 130/70 01/29/2013 1556 EDT Pulse 62 01/29/2013 1556 EDT Temperature 36.5 ??C (97.7 ??F) 01/29/2013 1556 EDT Respiratory Rate 20 01/29/2013 1556 EDT Oxygen Saturation - - Inhaled Oxygen Concentration - - Weight - - Height - - Body Mass Index - - documented in this encounter Discharge Disposition Disposition Code Departure Means Destination Auto Discharge documented in this encounter Progress Notes Marina Odell MD - 01/29/2013 1850 EDT Subjective: Patient ID: Zeeshan Gonzalez Jr. is an 22 y.o. male. Chief Complaint Patient presents with ??? Abdominal Pain HPI Mr. Gonzalez is a 22 year old male with no significant past medical history who presents to clinic witha several month history of epigastric abdominal pain, acid reflux and intermittent loose stools. He was seen in clinic on 01/05 with similar symptoms and given a prescription for protonix to take twice a day and was tested for H pylori antibody which was negative. Since then he reports his symptoms have remained about the same. He was not able to fill the protonix because his insurance would not coverit but bought omeprazole although he has not been taking it everyday. He continues to have symptoms of acid reflux such as a substernal burning sensation after eating and regurgitation of food. He has epigastric pain that is worse after eating a fatty meal. He has loose bowel movements most days with anywhere from 2-5 episodes, he notices more loose stools after he eats fatty foods or dairy. He reports some nausea with one episode of vomiting several days ago. He denies any fever, chills, or weight loss but has gained several pounds. He stopped drinking alcohol several months ago but continues to smoke one pack of cigarettes a day and does not feel ready to quit. Patient Active Problem List Diagnoses ??? Other activity ??? Obesity ??? Acanthosis nigricans ??? Depression ??? Hypertension ??? Asthma ??? Metabolic syndrome X Outpatient Prescriptions Marked as Taking for the 01/29/13 encounter (Office Visit) with Marina Odell MD Medication Sig Dispense Refill ??? omeprazole (PRILOSEC) 20 mg capsule Take 20 mg by mouth 2 times daily. ??? ASPIRIN/SOD BICARB/CITRIC ACID (MIRIAM-SELTZER ORAL) Take by mouth. Review of Systems Constitutional: Negative for fever, chills, weight loss, malaise/fatigue and diaphoresis. HENT: Negative for neck pain. Respiratory: Negative for cough and shortness of breath. Cardiovascular: Negative for chest pain and palpitations. Gastrointestinal: Positive for heartburn, nausea, vomiting, abdominal pain and diarrhea. Negative for constipation, blood in stool and melena. Genitourinary: Negative for dysuria, urgency, frequency and hematuria. Musculoskeletal: Negative for myalgias. Neurological: Negative for dizziness, tingling, tremors, sensory change and headaches. Psychiatric/Behavioral: Negative for depression. - See HPI Objective: BP 130/70 Pulse 62 Temp(Src) 36.5 ??C (97.7 ??F) (Tympanic) Resp 20 Physical Exam Constitutional: He is oriented to person, place, and time. He appears well- developed and well-nourished. HENT: Head: Normocephalic and atraumatic. Eyes: No scleral icterus. Pulmonary/Chest: Effort normal and breath sounds normal. Abdominal: Soft. Bowel sounds are normal. He exhibits no distension and no mass. There is no reboundand no guarding. Obese, mild tenderness in the epigastric region Musculoskeletal: Normal range of motion. He exhibits no edema and no tenderness. Neurological: He is alert and oriented to person, place, and time. Assessment / Plan: Mr. Gonzalez is a 22 year old male presenting with several months of epigastric abdominal pain, burningand loose stools. Substernal burning after meals most likely represents GERD, epigastric pain could represent peptic ulcer disease or gastritis superimposed. Given he has not been taking omeprazole daily cannot asses if he has failed treatment for GERD at this point. Diarrhea could represent separate issue and could be related to certain foods such as dairy or high fat foods. Recommend he eliminate one food group at a time and see if symptoms improve. Pain with eating could also represent cholithiasis although no right upper quadrant pain to suggest this. Epigastric pain/GERD/diarrhea -LFTs with GGT and lipase -continue omeprazole twice daily -eliminate dairy too see if diarrhea /pain improves -avoid caffeine, alcohol, and cigarettes -return to clinic in 4-6 weeks to re-evaluate Shean was seen today for abdominal pain. Diagnoses and associated orders for this visit: Gerd (gastroesophageal reflux disease) Abdominal pain - Liver Function Tests; Future - Lipase; Future - GGT; Future Other Orders - omeprazole (PRILOSEC) 20 mg capsule; Take 20 mg by mouth 2 times daily. Patient discussed with Dr. Harleen Odell MD 01/29/2013 19:13 ATTENDING ATTESTATION STATEMENT:At the time of the visit I reviewed this patient's clinical history and exam with the resident and agree with the resident's assessment and treatment plan as documented.Consideration for further eval / tx can only be determined if pt is compliant with ordered med tx and lifestyle (jimenez diet) advice. Pedro Canseco MD documented in this encounter Plan of Treatment Not on filedocumented as of this encounter Results GGT (01/29/2013 17:01 EDT) Pathologist Sig nature GGT 38 15 - 73 U/L [facility] Specimen Blood specimen (specimen) Performing Organization Address City/[facility]/ZIP Code Phon e Number [facility] [address] [place] [address] SERVICES [facility] [address] [place] [address] LIPASE (01/29/2013 17:01 EDT) Pathologist Sig nature Lipase 53 0 - 250 U/L [facility] Specimen Blood specimen (specimen) Performing Organization Address [facility]/ZIP [facility] Phon e Number [facility] [address] [place] [address] SERVICES [facility] [address] [place] [address] (ABNORMAL) LIVER FUNCTION TESTS (01/29/2013 17:01 EDT) [...] Address City/State/ZIP Code Phon e Number [facility] [address] [place] [address] SERVICES [facility] [address] [place] [address] documented in this encounter Visit Diagnoses Diagnosis GERD (gastroesophageal reflux disease) - Primary Esophageal reflux Abdominal pain Abdominal pain, unspecified site documented in this encounter Historical Medications This list may reflect changes made after this encounter. Medication Sig Dispensed Refills Start Date End Date omeprazole (PRILOSEC) 20 Take 20 mg by mouth 0 08/21/2013 mg capsule 2 times daily. added in this encounter Care Teams Nursing Specialist Relationship Specialty Start Date End Date Ilan Kelly MD PCP - General 01/29/11 03/18/13 1 [facility] Level [address] [place] [address] Sixto Sandoval MD PCP - Alternate 01/05/13 12/25/15 [address] [place] [address] documented as of this encounter
--- OUTSIDE RECORDS SUMMARY | 2022-06-05 06:51 | XMS_ITS | Encounter Summary ---
:1990 Author Organization [facility] Address [address] [place] [address] Care Team Providers Name Role Phone Ilan Kelly MD Primary Care Provider Reason for Visit Reason Onset Date Comments Medications Refill 03/31/2012 Orders (Non Pre-visit) 03/31/2012 Encounter Details Date Type Department Care Team Description 03/31/2012 Refill [facility] Ilan Kelly M edications Refill; Adult Primary Care - Orders (Non Pre-visit) [address] [address] [place] [address] (Wo rk) Social History Tobacco [...] this encounter Miscellaneous Notes Telephone Encounter - Christianne Cottrell RN - 03/31/2012 1345 EDT Spoke w/ pt's mom, she states he is still having shoulder pain, cant straighten arm up, can see a dip in his bone on the collar bone and having hard time sleeping due to pain. Only has 2 percocet left.Advised her he needs to come in for appt. Set him up for 230pm tomorrow w/ Neena Mistry INVESTIGATIONS CONSULTANT. elephone Encounter - Katarina Christianson - 03/31/2012 1248 EDT Patient is still in pain from his shoulders. Would like to get another x ray . Please advise documented in this encounter Plan of Treatment Not on filedocumented as of this encounter Visit Diagnoses Diagnosis Right shoulder injury - Primary Injury, other and unspecified, shoulder and upper arm documented in this encounter Care Teams Associate Program Manager Relationship Specialty Start Date End Date Ilan Kelly MD PCP - General 01/29/11 03/18/13 1 [facility] [address] [place] [phone] documented as of this encounter
--- OUTSIDE RECORDS SUMMARY | 2022-06-05 06:51 | XMS_ITS | Encounter Summary ---
:[address] [facility] Address [address] [place] [address] Care Team Providers Name Role Phone Ilan Kelly MD Primary Care Provider Sixto Sandoval MD Unavailable Encounter Details Date Type Department Care Team Description 02/02/2013 Phlebotomy Only [facility] - Php Wordpress Developer, Epi gastric pain [facility] Outpatient [address] [place], [place] [address] [phone] Social History Tobacco Use Types Packs/Day Years [...] Procedure Name Priority Date/Time Associated Comments Diagnosis TISSUE TRANSGLUTAMINASE Routine 02/02/2013 12:03 Epigastric pa in Results for this AB EDT procedure are i n the results section. documented in this encounter Results TTG AB, IGA, S (02/02/2013 12:03 EDT) tTG Ab, IgA, S <1.2 <4.0 [facility] Comment: (Negative) LAB Performed by: [facility] [place], [address], [place], [place] [address], Forest Economics Professor: Marina Mitchell, Ph.D. Specimen Blood specimen (specimen) Performing Organization Address City/State/ZIP Code Phon e Number [facility] [address] [place] [address] SERVICES [facility] [address] [place] [address] documented in this encounter Visit Diagnoses Diagnosis Epigastric pain Abdominal pain, epigastric documented in this encounter Care Teams Shale Planer Operator Relationship Specialty Start Date End Date Ilan Kelly MD PCP - General 01/29/11 03/18/13 1 [facility] [address] [place] [phone] Sixto Sandoval MD PCP - Alternate 01/05/13 12/25/[address] [place] [phone] documented as of this encounter
--- OUTSIDE RECORDS SUMMARY | 2022-06-05 06:52 | XMS_ITS | Encounter Summary ---
:1990 Author Organization [facility] Address [address] [place] [address] Care Team Providers Name Role Phone Rajani Garrett Primary Care Provider Unavailable Reason for Visit Reason Onset Date Comments Medications Refill 02/27/2010 Encounter Details Date Type Department Care Team Description 02/27/2010 Refill [facility] Rajani Garrett Medications Refill Pediatric Primary Care - [address] [id number] Social History Tobacco Use Types Packs/Day Years Used Date Never Assessed Sex Assigned at Date Recorded Male 09/05/2020 10:43 EDT documented as of this encounter Ordered Prescriptions Prescription Sig Dispensed Refills Start Date End Date zolpidem (AMBIEN) 10 mg Take 1 Tab by mouth 30 Tab 0 10/201009/20/2010 tablet at bedtime as needed for Sleep. documented in this encounter Miscellaneous Notes Telephone Encounter - Tor Pickard MD - 02/28/2010 0917 EDT Approved and signed. Tor Pickard MD elephone Encounter - Nikia Garcia - 02/27/2010 0417 EDT Last refill 12/19/09. Last HS 10/06/09. elephone Encounter - Rajani Whatley - 02/27/2010 1413 EDT AMBIEN REFILL documented in this encounter Plan of Treatment Not on filedocumented as of this encounter Visit Diagnoses Not on filedocumented in this encounter Care Teams [place] Mold Maker Relationship Specialty Start Date End Date Rajani Garrett PCP - General 03/10/09 06/15/10 documented as of this encounter
--- OUTSIDE RECORDS SUMMARY | 2022-06-05 06:52 | XMS_ITS | Encounter Summary ---
:1990 Author Organization [facility] Address [address] [place] [address] Care Team Providers Name Role Phone Jazzy Ramos MD Primary Care Provider [phone] Encounter Details Date Type Department Care Team Description 01/23/2011 Hospital Encounter [facility] Job Reardon & vomiting; - S Cheryl Rodriguez MD Hematemesis; [address] [facility] Level [place] [id number] Social History Tobacco Use Types Packs/Day Years [...] hours as needed for inhalerIndications: Cough Wheezing. doxycycline (VIBRA-TABS) Take 1 Tab by mouth 14 Tab 0 01/26/2011 100 mg tablet 2 times daily for 7 days. fluticasone (FLOVENT) 110 Inhale 2 Puffs as 1 Inhaler 2 06/201110/10/2011 mcg/Actuation directed 2 times inhalerIndications: Cough daily. loratadine (CLARITIN) 10 Take 1 Tab by mouth 30 Tab 5 03/18/2012 mg tabletIndications: daily. Environmental allergies losartan (COZAAR) 25 mg Take 25 mg by mouth 0 03/08/2011 tablet daily. Melatonin 3 mg Tab Take 9 mg by mouth 0 0 10/10/2011 at bedtime. metformin (GLUCOPHAGE-XR) Take 1 Tab by mouth 90 Tab 2 0 07/27/2010 03/08/2011 500 mg XR daily. tabletIndications: High triglycerides ondansetron (ZOFRAN) 4 mg Take 1 Tab by mouth 30 Tab 1 0 01/23/2011 10/10/2011 tabletIndications: Nausea every 8 hours as & vomiting needed for Nausea. sertraline (ZOLOFT) 100 Take 1 Tab by mouth 30 Tab 2 03/201110/10/2011 mg tabletIndications: daily. Depression tocopheryl acetate Take 400 Units by 0 10/10/2011 (VITAMIN E) 200 unit mouth daily. capsule ursodiol (ACTIGALL) 300 Take 300 mg by mouth 0 03/08/2011 mg capsule 2 times daily. zolpidem (AMBIEN) 10 mg Take 1 Tab by mouth 30 Tab 0 08/201101/25/2011 tabletIndications: at bedtime as needed Insomnia for Sleep. documented as of this encounter Discharge Disposition Disposition Code Departure Means Destination Auto Discharge Home documented in this encounter Plan of Treatment Not on filedocumented as of this encounter Procedures Procedure Name Priority Date/Time Associated Comments Diagnosis COMPLETE BLOOD COUNT Routine 01/23/2011 15:59 Hematemesis Res ults for this AND DIFFERENTIAL EST procedure a re in the results section. HIV 1/2 ANTIGEN AND Routine 01/23/2011 15:59 Nausea & vo miting Results for this ANTIBODY, 4TH EST Anorexia procedure are in GENERATION the results section. COMPREHENSIVE Routine 01/23/2011 15:59 Nausea & vomiting Resul ts for this METABOLIC PANEL (CMP) EST proced ure are in the results section. documented in this encounter Results HIV ANTIBODY (01/23/2011 15:59 EST) HIV 1/2 Antibody Negative Reference [facility] Range: Negative Specimen Blood specimen (specimen) Performing Organization Address City/[facility] Phon e Number [facility] [address] [place] [address] SERVICES [facility] [address] [place] [address] (ABNORMAL) HEMAGRAM AND DIFFERENTIAL (01/23/2011 15:59 EST) Pathologist Sig nature WBC 8.07 4.0 - 10.4 K/cmm [facility] RBC 5.04 4.36 - 5.78 M/cmm [facility] Hemoglobin 15.6 13.8 - 17.3 gm/dl [facility] HCT 44.1 39.5 - 50.2 % [facility] MCV 88 81 - 95 fl [facility] MCH 30.9 27.6 - 33.0 pg [facility] MCHC 35.3 32.8 - 36.4 gm/dl [facility] PLT 259 141 - 320 K/cmm [facility] RDW-CV 14.2 (H) 11.8 - 14.1 % [facility] Neutrophils 62.9 45.5 - 79.7 % [facility] Lymphocytes 31.0 15.0 - 46.8 % [facility] Monocytes 4.9 1.8 - 12.0 % [facility] Eosinophils 1.0 0.6 - 6.9 % [facility] Basophils 0.2 0.2 - 1.4 % [facility] ABS Neutrophils 5.08 2.20 - 8.85 K/cmm [facility] ABS Lymphs 2.51 1.09 - 3.30 K/cmm [facility] ABS Monocytes 0.39 0.1 - 0.8 K/cmm [facility] ABS Eosinophils 0.08 0.03 - 0.61 K/cmm [facility] ABS Basophils 0.02 0.01 - 0.11 K/cmm [facility] Type of Diff: Automated [facility] Specimen Blood specimen (specimen) Performing Organization Address City/State/ZIP Code Phon e Number [facility] [address] [place] [address] SERVICES [facility] [address] [place] [address] (ABNORMAL) COMPREHENSIVE METABOLIC PANEL (CMP) (01/23/2011 15:59 EST) Pathologist Sig nature Potassium 4.0 3.5 - 5.0 mEq/L [facility] Sodium 137 136 - 145 mEq/L [facility] Chloride 104 96 - 110 mEq/L [facility] CO2 18 (L) 24 - 32 mEq/L [facility] Total Alkaline 88 38 - 126 U/L [facility] Phosphatase Bilirubin, Total <0.5 0.2 - 1.3 mg/dl [facility] AST 37 15 - 46 U/L [facility] ALT 70 21 - 72 U/L [facility] Albumin 5.0 (H) 3.4 - 4.9 g/dl [facility] Total Protein 8.1 6.5 - 8.3 g/dl [facility] Creatinine 0.88 0.7 - 1.5 mg/dl [facility] GFR, Calculated >60 ml/min/1.73m2 [facility] BUN 8 (L) 10 - 26 mg/dl [facility] Calcium 9.6 8.5 - 10.5 [facility] mg/dl Calculated Calcium 9.0 8.5 - 10.5 [facility] mg/dl Glucose, Serum 76 70 - 100 mg/dl [facility] Fasting? No [facility] Specimen Blood specimen (specimen) Performing Organization Address City/State/ZIP Code Phon e Number [facility] [address] [place] [address] SERVICES [facility] [address] [place] [address] documented in this encounter Visit Diagnoses Diagnosis Nausea & vomiting Nausea with vomiting Hematemesis Anorexia documented in this encounter Care Teams Transplant Coordinator Relationship Specialty Start Date End Date Jazzy Ramos MD PCP - General 01/19/11 01/28/[address] [place] [address] documented as of this encounter
--- OUTSIDE RECORDS SUMMARY | 2022-06-05 06:52 | XMS_ITS | Encounter Summary ---
:1990 Author Organization [facility] Address [address] [place] [address] Care Team Providers Name Role Phone Ilan Kelly MD Primary Care Provider Reason for Visit Reason Onset Date Comments Medication Problem 07/19/2010 Encounter Details Date Type Department Care Team Description 07/19/2010 [facility] Kelly MD Medication Problem Pediatric Primary Care - 1 [facility] Level [address] [place] [phone] (Wo rk) Social History Tobacco Use Types Packs/Day Years Used Date Never Assessed Sex Assigned at Date Recorded Male 09/05/2020 10:43 EDT documented as of this encounter Ordered Prescriptions Prescription Sig Dispensed Refills Start Date End Date venlafaxine (EFFEXOR-XR) Take 1 Cap by mouth 30 Cap 0 09/20/2010 150 mg XR daily. capsuleIndications: Depression venlafaxine (EFFEXOR-XR) Take 1 Cap by mouth 30 Cap 0 09/20/2010 75 mg XR daily. capsuleIndications: Depression documented in this encounter Miscellaneous Notes Telephone Encounter - Rajani Garrett PNP - 07/19/2010 1402 EDT Noted AUBREE Quinn elephone Encounter - Nikia Garcia - 07/19/2010 1302 EDT Called mom to let her know what Rajani Hernandezroxanna said and she was very happy with that. Transferred to [facility] To book 15 min visit for tomorrow with Rajani Fong for a quick check. Telephone Encounter - Rajani Garrett PNP - 07/19/2010 1141 EDT I can prescribe only until Given appt. But needs 15 Min visit here tomorrow for quick check. Other health issues to be discussed at Given appointment. elephone Encounter - Melania Hernandez RN - 07/19/2010 1047 EDT No-showed 06/19/2010 appt. At Given. Will route to POD for review and advise. Melania Hernandez RN elephone Encounter - Rajani Whatley - 07/19/2010 0845 EDT IS OUT OF DEPRESSION MEDS HE HAS APPT. WITH GIVEN ON 09.04.2010 IS THERE ANYTHING WE CAN DO? documented in this encounter Plan of Treatment Not on filedocumented as of this encounter Visit Diagnoses Diagnosis Depression - Primary Depressive disorder, not elsewhere class ified documented in this encounter Discontinued Medications Medication Sig Discontinue Reason Start Date End Date venlafaxine (EFFEXOR-XR) Take 1 Cap by mouth Reorder 0 07/19/2010 75 mg XR capsule daily. venlafaxine (EFFEXOR-XR) Take 1 Cap by mouth Reorder 0 07/19/2010 150 mg XR capsule daily. documented as of this encounter Care Teams Blackjack Pit Boss Relationship Specialty Start Date End Date Ilan Kelly MD PCP - General 06/16/10 10/18/10 1 [facility] Level [address] [place] [address] documented as of this encounter
--- OUTSIDE RECORDS SUMMARY | 2022-06-05 06:52 | XMS_ITS | Encounter Summary ---
:1990 Author Organization [facility] Address [address] [place] [address] Care Team Providers Name Role Phone Rajani Garrett Primary Care Provider Unavailable Encounter Details Date Type Department Care Team Description 02/21/2010 Results Only Medical & Jocelyne Munoz MD Developmental Follow-Up - [address] [place], [place] [address] [facility] [address] [place], [place] [id number] [phone] Social History Tobacco Use Types Packs/Day Years Used Date Never Assessed Sex Assigned at Date Recorded Male 09/05/2020 10:43 EDT documented as of this encounter Plan of Treatment Not on filedocumented as of this encounter Procedures Procedure Name Priority Date/Time Associated Diagnosis Comme nts URINE SEDIMENT Routine 02/21/2010 17:12 Results f or this (MICRO) WITHOUT EDT procedure ar e in REFLEX TO CULTURE the result s section. PROTEIN, TOTAL, Routine 02/21/2010 17:12 Results for this RANDOM, URINE EDT procedure are in the results section. CREATININE, URINE Routine 02/21/2010 17:12 Result s for this RANDOM EDT procedure are i n the results section. documented in this encounter Results URINE MICROSCOPIC ONLY (02/21/2010 17:12 EDT) WBC, UA 1 to 5 0 - 5 /HPF [facility] RBC, UA 5 to 10 0 - 5 /HPF [facility] Squam Epithel, UA None seen NS /HPF [facility] Renal Epithel, UA None seen NS /HPF [facility] Bacteria, UA None seen NS /HPF [facility] Crystals, UA None seen /HPF [facility] Hyaline Casts, UA None seen /LPF [facility] UA Comment Microscopic results [facility] are unreliable on LAB urines unrefrig >2hrs or refrig >8hrs. Specimen Urine (substance) Performing Organization Address City/State/ZIP Code Phon e Number [facility] [address] [place] [address] SERVICES [facility] [address] [place] [address] TOTAL PROTEIN,URINE RANDOM (02/21/2010 17:12 EDT) Pathologist Sig nature Tot Prot,Ur Random <5 mg/dl [facility] Specimen Urine (substance) Performing Organization Address [facility]/ZIP [facility] Phon e Number [facility] [address] [place] [address] SERVICES [facility] [address] [place] [address] CREATININE, URINE RANDOM (02/21/2010 17:12 EDT) Pathologist Sig nature Creatinine, Urn [place] 402.7 mg/dl [facility] Specimen Urine (substance) Performing Organization Address [facility]/ZIP [facility] Phon e Number [facility] [address] [place] [address] SERVICES [facility] [address] [place] [address] documented in this encounter Visit Diagnoses Not on filedocumented in this encounter Care Teams Tray Line Supervisor Relationship Specialty Start Date End Date Rajani Garrett PCP - General 03/10/09 06/15/10 documented as of this encounter
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
--- OUTSIDE RECORDS SUMMARY | 2022-06-05 06:52 | XMS_ITS | Encounter Summary ---
:1990 Author Organization [facility] Address [address] [place] [address] Care Team Providers Name Role Phone Jazzy Ramos MD Primary Care Provider [phone] Reason for Visit Reason Onset Date Comments Medications Refill 11/02/2010 Encounter Details Date Type Department Care Team Description 11/02/2010 Refill [facility] Adult Garcia Rmaos, Medications Refill Primary Care - Gabino lantigua MD 1 [facility] [address] [place] [address] [address] [address] [place] [address] (Wo rk) Social History Tobacco Use Types [...] Start Date End Date loratadine (CLARITIN) 10 mg Take 1 Tab by 30 Tab 5 11/0203/18/2012 tabletIndications: mouth daily. Environmental allergies documented in this encounter Plan of Treatment Not on filedocumented as of this encounter Visit Diagnoses Diagnosis Environmental allergies Other allergy, other than to medicinal a gents documented in this encounter Discontinued Medications Medication Sig Discontinue Reason Start Date End Date loratadine (CLARITIN) 10 Take 1 Tab by Reorder 07/24/2010 mg tabletIndications: mouth daily. Environmental allergies documented as of this encounter Care Teams Manager Inpatient Relationship Specialty Start Date End Date Jazzy Ramos MD PCP - General 10/19/10 12/27/[address] [place] [address] documented as of this encounter
--- OUTSIDE RECORDS SUMMARY | 2022-06-05 06:52 | XMS_ITS | Encounter Summary ---
:1990 Author Organization [facility] Address [address] [place] [address] Care Team Providers Name Role Phone Rajani Garrett Primary Care Provider Unavailable Encounter Details Date Type Department Care Team Description 01/26/2010 Results Only [facility] Kerrie Sin MD [facility] - [address] [place] [address] [address] [facility] [address] [place] [address] [phone] Social History Tobacco Use Types Packs/Day Years Used Date Never Assessed Sex Assigned at Date Recorded Male 09/05/2020 10:43 EDT documented as of this encounter Plan of Treatment Not on filedocumented as of this encounter Procedures Procedure Name Priority Date/Time Associated Diagnosis Comme nts ZZHEMOGLOBIN A1C Routine 01/26/2010 14:30 EST Res ults for this procedure are i n the results section. documented in this encounter Results HEMOGLOBIN A1C (01/26/2010 14:30 EST) Pathologist Sig nature POCT Hgb A1C 5.7 % [facility] Comment: Reference Range: <6% Normal Range ADA guidelines: The A1c goal for non adults in general is <7% The A1c goal for selected individual patients is as close to normal (<6%) as possible without significant hypoglycemia. Test Performed at [facility] Specimen Performing Organization Address City/State/ZIP Code Phon e Number [facility] [address] [place] [address] SERVICES [facility] [address] [place] [address] documented in this encounter Visit Diagnoses Not on filedocumented in this encounter Care Teams Wig Dresser Relationship Specialty Start Date End Date Rajani Garrett PCP - General 03/10/09 06/15/10 documented as of this encounter
--- OUTSIDE RECORDS SUMMARY | 2022-06-05 06:52 | XMS_ITS | Encounter Summary ---
:1990 Author Organization [facility] Address [address] [place] [address] Care Team Providers Name Role Phone None, Provider Primary Care Provider Unavailable Reason for Visit Reason Onset Date Comments Medications Refill 12/28/2010 Encounter Details Date Type Department Care Team Description 12/28/2010 Refill [facility] Adult [facility], Garcia Luis, Medications Refill Primary Care - Gabino lantigua MD 1 [facility] [address] [place] [address] [address] [address] [place] [address] (Wo rk) Social History Tobacco [...] bedtime as needed Insomnia for Sleep. documented in this encounter Miscellaneous Notes Telephone Encounter - Mounika Simons - 12/28/2010 0780 EST Zolpidem was phoned into the [facility]. documented in this encounter Plan of Treatment Not on filedocumented as of this encounter Visit Diagnoses Diagnosis Insomnia Insomnia, unspecified documented in this encounter Discontinued Medications Medication Sig Discontinue Reason Start Date End Date zolpidem (AMBIEN) 10 mg Take 1 Tab by mouth Reorder 11/17/2010 12/28/2010 tabletIndications: at bedtime as needed Insomnia for Sleep. documented as of this encounter Care Teams Poiser Balance Relationship Specialty Start Date End Date None, Provider PCP - General 12/28/10 01/18/11 documented as of this encounter
--- OUTSIDE RECORDS SUMMARY | 2022-06-05 06:52 | XMS_ITS | Encounter Summary ---
:1990 Author Organization [facility] Address [address] [place] [address] Care Team Providers Name Role Phone None, Provider Primary Care Provider Unavailable Reason for Visit Reason Comments Emesis f/u er Encounter Details Date Type Department Care Team Description 01/05/2011 Office Visit [facility] Unknown, Andrea mabry MD Anorexia; Adult Primary Care - Ilan Kelly MD 1 [facility] [address] [place] [phone] Nausea & vomiting; [place] Airam Christianson MD [address] [place] [phone] Hematemesis [address] [place], [place] [id number] Social History Tobacco Use Types Packs/Day Years [...] Sign Reading Time Taken Comments Blood Pressure 120/74 01/05/2011 1101 EST Pulse 86 01/05/2011 1101 EST Temperature 36.5 ??C (97.7 ??F) 01/05/2011 1101 EST Respiratory Rate 20 01/05/2011 1101 EST Oxygen Saturation - - Inhaled Oxygen Concentration - - Weight 122 kg (269 lb) 01/05/2011 1101 EST Height - - Body Mass Index 40.9 12/28/2010 1005 EST documented in this encounter Progress Notes Airam Christianson MD - 01/05/2011 1806 EST Subjective HPI: Zeeshan Gonzalez Jr. is a 20 y.o. male who presents with Chief Complaint Patient presents with ??? Emesis f/u bebeto Hoffman was seen in the ED for hematemesis thought to represent joe-mays tear. He denies any further blood in his vomit, though he does continue to have post- tussive emesis once daily, several days per week. He denies black or bloody stool. Patient reports ongoing URI with nasal congestion and coughproductive of sputum of every color (Brown, yellow, green, and white) minimally responsive to azithromycin. He is dyspneic only with coughing. He does describe itchy, watery eyes but takes claritin to address his allergies. He denies fevers. He says he feels well with the exception of his lingering coughing fits. Past Medical History Diagnosis Date ??? Hypertension ??? Asthma ??? Chicken pox As a child ??? CABRALES (nonalcoholic steatohepatitis) ??? Glucose intolerance (impaired glucose tolerance) Current outpatient prescriptions ordered prior to encounter Medication Sig Dispense Refill ??? zolpidem (AMBIEN) 10 mg tablet Take 1 Tab by mouth at bedtime as needed for Sleep. 30 Tab 0 ??? azithromycin (ZITHROMAX) 250 mg tablet Take by mouth daily. Take 2 tablets (500 mg) on Day 1, followed by 1 tablet (250 mg) once daily on Days 2 through 5. 6 Tab 0 ??? sertraline (ZOLOFT) 100 mg tablet Take 1 Tab by mouth daily. 30 Tab 2 ??? fluticasone (FLOVENT) 110 mcg/Actuation inhaler Inhale 2 Puffs as directed 2 times daily. 1 Inhaler 2 ??? albuterol (PROVENTIL HFA, VENTOLIN HFA) 90 mcg/Actuation inhaler Inhale 2 Puffs as directed every 6 hours as needed for Wheezing. 1 Inhaler 11 ??? loratadine (CLARITIN) 10 mg tablet Take 1 Tab by mouth daily. 30 Tab 5 ??? Melatonin 3 mg Tab Take 9 mg by mouth at bedtime. ??? ursodiol (ACTIGALL) 300 mg capsule Take 300 mg by mouth 2 times daily. ??? losartan (COZAAR) 25 mg tablet Take 25 mg by mouth daily. ??? metformin (GLUCOPHAGE-XR) 500 mg XR tablet Take 1 Tab by mouth daily. 90 Tab 2 ??? tocopheryl acetate (VITAMIN E) 200 unit capsule Take 400 Units by mouth daily. History Social History ??? Marital Status: Single Spouse Name: N/A Number of Children: N/A ??? Years of Education: N/A Occupational History ??? Not on file. Social History Main Topics ??? Smoking status: Current Everyday Smoker -- 0.7 packs/day for 2 years Types: Cigarettes ??? Smokeless tobacco: Never Used Comment: 10/20 down to 1 pack/day ??? Alcohol Use: Yes occasionally ??? Drug Use: 21 per week Special: Marijuana ??? Sexually Active: Not on file Other Topics Concern ??? Not on file Social History Narrative ??? No narrative on file ROS: postive for anorrexia and weight loss for 4 months (reports one meal daily, generally cereal), sweats and chills forever, itchy rash left arm. 10 pt ROS otherwise negative. EXAM: BP 120/74 Pulse 86 Temp(Src) 36.5 ??C (97.7 ??F) (Tympanic) Resp 20 Wt 122.018 kg (269 lb) Ht Readings from Last 1 Encounters: 12/28/2010 172.7 cm (68) (29.66%) Wt Readings from Last 1 Encounters: 01/05/2011 122.018 kg (269 lb) (99.64%) GEN: A+O, NAD, flat affect HEENT: PERRL, sclera anicteric, MMM without OP lesion. Exudate CV: RRR, no m/r/g LUNG: CTAB, non-labored ABD: obese, NT, +BS, no organomegaly noted though limited by habitus NEURO: grossly in tact SKIN: mild erythema with excoriations left forearm ASSESSMENT: 20 y/o male presents in follow up from ED visits for hematemesis where he was diagnosed with probable joe mays tear. Bleeding has not reoccurred. Lingering cough likely viral URI with possible superimposed bacterial pneumonia, though poor response to antibiotics argues against this. Agree with continuing claritin to prevent contribution of allergic post-nasal drip. Previous normal chest films argue against underlying chronic lung disease. Patient also describes significant anorexia. PLAN: 1) Hematemesis: agree this is clinically consistent with joe mays tear. Will check CBC to ensure Hgb stable. 2) URI: expectant management as seems minimally affected by his symptoms and is slowly improving, though patient encouraged to follow up if symptoms do not continue to resolve. 3) Anorrexia: will screen for metabolic causes with CMP, thyroid (previous order still in [facility]) 4) Follow up as needed. Patient discussed w/ Dr Kelly. Airam Christianson MD 01/05/2011 18:38 I discussed the patient with the resident at the time of the visit. I agree with the findings and the plan of care documented in their note. Ilan Kelly MD 01/08/2011 14:02 documented in this encounter Plan of Treatment Not on filedocumented as of this encounter Results (ABNORMAL) HEMAGRAM AND DIFFERENTIAL (01/23/2011 15:59 EST) Pathologist Sig nature WBC 8.07 4.0 - 10.4 K/cmm [facility] RBC 5.04 4.36 - 5.78 M/cmm [facility] Hemoglobin 15.6 13.8 - 17.3 gm/dl [facility] HCT 44.1 39.5 - 50.2 % [facility] MCV 88 81 - 95 fl [...] Address City/State/ZIP Code Phon e Number [facility] [address] [place] [address] SERVICES [facility] [address] [place] [address] (ABNORMAL) COMPREHENSIVE METABOLIC PANEL (CMP) (01/23/2011 15:59 EST) [facility] Potassium 4.0 3.5 - 5.0 mEq/L [facility] [...] Address City/State/ZIP Code Phon e Number [facility] [address] [phone] SERVICES [facility] [address] [place] [address] documented in this encounter Visit Diagnoses Diagnosis Anorexia Nausea & vomiting Nausea with vomiting Hematemesis documented in this encounter Care Teams Chute Man Relationship Specialty Start Date End Date None, Provider PCP - General 12/28/10 01/18/11 documented as of this encounter
--- OUTSIDE RECORDS SUMMARY | 2022-06-05 06:52 | XMS_ITS | Encounter Summary ---
:1990 Author Organization [facility] Address [address] [place] [address] Care Team Providers Name Role Phone None, Provider Primary Care Provider Unavailable Reason for Visit Reason Comments Hemoptysis Pt to the emergency departme nt with complaints of cough and vomiting blood. States that he has be en sick since September. Has been seen by PCP since that time. States that he was diagnosed with a viral infection and treated with antibiotics. Th is had limited success. Encounter Details Date Type Department Care Team Description 12/28/2010 Emergency [facility] Vikas Wyman MD [address] [place] [address], [address] [place] [address] Hematemesis; Emergency Department - Emergency, MD Dia Chamorro [address] [address] Social History Tobacco Use Types [...] Sign Reading Time Taken Comments Blood Pressure 173/76 12/28/2010 1005 EST Pulse - - Temperature 35.4 ??C (95.7 ??F) 12/28/2010 1005 EST Respiratory Rate 16 12/28/2010 1142 EST Oxygen Saturation 97% 12/28/2010 1005 EST Inhaled Oxygen Concentration - - Weight 117 kg (258 lb) 12/28/2010 1005 EST Height 172.7 cm (5' 8) 12/28/2010 1005 EST Body Mass Index 39.23 12/28/2010 1005 EST documented in this encounter Discharge Instructions Shaista Wilder - 12/28/2010 [facility] Emergency [facility] Discharge Instructions Follow up: Please see your PCP (Jazzy Ramos MD or other physician at the [facility]) within a week. Please seek medical attention immediately if you develop more episodes of coughing up blood or vomiting blood, or if you feel lightheaded, pass out, develop uncontrollable pain, or develop worsening ofsymptoms which initially brought you into the hospital. AttachmentsThe following attachments cannot be sent through Care Everywhere. UPPER GASTROINTESTINAL BLEEDING: AFTER YOUR VISIT (PASHTO)documented in this encounter Medications at Time of Discharge Medication Sig Dispensed Refills Start Date End Date albuterol (PROVENTIL HFA, Inhale 2 Puffs as 1 Inhaler 11 01/23/2011 VENTOLIN HFA) 90 directed every 6 mcg/Actuation hours as needed for inhalerIndications: Cough Wheezing. azithromycin (ZITHROMAX) Take by mouth daily. 6 Tab 0 0 12/05/2010 01/23/2011 250 mg tabletIndications: Take 2 tablets (500 URI (upper respiratory mg) on Day 1, infection) followed by 1 tablet (250 mg) once daily on Days 2 through 5. fluticasone (FLOVENT) 110 Inhale 2 Puffs as 1 Inhaler 2 01/23/2011 mcg/Actuation directed 2 times inhalerIndications: Cough daily. [...] 500 mg XR daily. tabletIndications: High triglycerides sertraline (ZOLOFT) 100 Take 1 Tab by mouth 30 Tab 2 03/201110/10/2011 mg tabletIndications: daily. Depression tocopheryl acetate Take 400 Units by 0 10/10/2011 (VITAMIN E) 200 unit mouth daily. capsule ursodiol (ACTIGALL) 300 Take 300 mg by mouth 0 03/08/2011 mg capsule 2 times daily. documented as of this encounter Discharge Disposition Disposition Code Departure Means Destination Home or Self Care Walk-out Home documented in this encounter ED Notes Jazzy Zepeda RN - 12/28/2010 1142 EST Pt ambulatory in room, skin pink, warm, dry, in no distress. Vikas Olmedo MD - 12/28/2010 1058 EST DOS: 12/28/2010 Chief Complaint Patient presents with ??? Hemoptysis Pt to the emergency department with complaints of cough and vomiting blood. States that he has beensick since September. Has been seen by PCP since that time. States that he was diagnosed with a viralinfection and treated with antibiotics. This had limited success. The patient is a 20 y.o. male who presents today with Hemoptysis HPI Comments: I performed a history and exam of Zeeshan Gonzalez Jr. and discussed the case with the resident. I reviewed this individual's note and I concur with the documented findings and plan of care. The history is provided by the patient. Hemoptysis Review of Systems Respiratory: Positive for hemoptysis. Past Medical History Diagnosis Date ??? Hypertension [...] Artery Disease Other great-uncle Vital Signs Temp: 35.4 ??C (95.7 ??F) Temp src: Tympanic Heart Rate: 79 BPM Resp: 16 SpO2: 97 % BP: 173/76 mmHg BP Device: BP Machine Patient Position: Sitting BP Cuff Location: Right arm O2 Device: None (Room air) Physical Exam Radiology orders: None Procedures ED Course: Well appearing patient. No evidence of active upper GI bleeding. The patient, this happens to him periodically. His not appear especially concerned. Clinical history is consistent with a Dia-Figueroa, with initial episodes of emesis negative, then small amount of upper GI bleeding Explicit, usual and customary precautions given to the patient and/or guardians. Abdominal pain, upper GI bleeding Discharge Prescriptions New Prescriptions No Discharge Prescriptions for this patient MDM Number of Diagnoses or Management Options Hematemesis: Dia - Figueroa tear: Diagnosis management comments: 4 1. Hematemesis (578.0) 2. Dia - Figueroa tear (530.7R) probable PCP: NO PCP 12/28/2010 10:58 documented in this encounter Miscellaneous Notes ED Resident - Shaista Heredia - 12/28/2010 1102 EST DOS: 12/28/2010 Chief Complaint Patient presents with ??? Hemoptysis Pt to the emergency department with complaints of cough and vomiting blood. States that he has beensick since September. Has been seen by PCP since that time. States that he was diagnosed with a viralinfection and treated with antibiotics. This had limited success. The patient is a 20 y.o. male who presents today with Hemoptysis HPI Comments: Zeeshan Gonzalez Jr. is a 20 y.o. male with PMHx of HTN, DM Type 2, NAFLD, Asthma, presenting to the ED with complaint of hematemesis starting this morning. He had 4 episodes of emesis from 9:25AM - 9:30AM. The first 2 episodes consisted of food, and the next 2 episodes of hematemesis consisted of bright red blood and then blood mixed with food. He estimates the total blood loss was ~2 cups. He also complains of URI symptoms since Sep 2010. His symptoms consist of nasal congestion, sore throat, ear fullness, emesis once a week (generally consists only of food; today's was the only episode which was bloody), diarrhea twice daily (he does not look at his emesis so is unable to comment on the quality of it), SOB, coughing fits which lead to abd aches, subjective chills, sweats. He has not measured his temperature at home. He has noted hemoptysis in the past (small amounts of blood). He denies generalized to muscle or joint pains. He has had his influenza vaccine this year. He does not know of any specific sick contacts (but his symptoms started many months ago, so his memory of previous sick contacts is hazy). Previous workup by his PCP did not involve any labwork or imaging. He was initially offered reassurance regarding the viral nature of his URI, however, at the most recent PCP visit (12/05/10), he was prescribed a Z-pack. He tried to call his PCP this morning re: the episodes of hematemesis, but was told that there were no open appointments for the next 2 days, so his PCP told him to come to the ED. He denies IVDA, but does admit to unprotected sex. Please see additional HPI details below, generated by NoteWriter. The history is provided by the patient and a parent. Hematemesis The current episode started 1 to 2 hours ago. Episode frequency: 4 episodes from 9:25-9:30AM, none since then. The problem has been resolved. Associated With: followed 2 episodes of emesis. Associated symptoms include nausea, vomiting, abdominal pain and hematemesis. Pertinent negatives include no fever, no diarrhea, no hematochezia, no melena, no constipation, no dysuria, no frequency, no hematuria,no headaches, no arthralgias, no myalgias, no weakness and no dizziness. The Symptoms are described as moderate. Review of Systems Constitutional: Positive for chills, diaphoresis, appetite change, fatigue and unexpected weight change. Negative for fever. Lost 16 lbs since 09/2010 per patient's mother. HENT: Positive for ear pain, congestion, sore throat and rhinorrhea. Negative for nosebleeds, sneezing, trouble swallowing, neck pain, neck stiffness and voice change. Eyes: Negative for pain, redness and visual disturbance. Respiratory: Positive for cough, hemoptysis and shortness of breath. Negative for wheezing. Cardiovascular: Negative for chest pain, palpitations and leg swelling. Gastrointestinal: Positive for nausea, vomiting and abdominal pain. Negative for diarrhea, constipation, blood in stool, melena, hematochezia and abdominal distention. Genitourinary: Negative for dysuria, urgency, frequency, hematuria, flank pain and difficulty urinating. Musculoskeletal: Negative for myalgias, joint swelling and arthralgias. Skin: Negative for rash. Neurological: Negative for dizziness, tremors, syncope, weakness, light- headedness and headaches. Hematological: Negative. Negative for adenopathy. Does not bruise/bleed easily. Psychiatric/Behavioral: Negative for confusion. All other systems [...] Artery Disease Other great-uncle Vital Signs Temp: 35.4 ??C (95.7 ??F) Temp src: Tympanic Heart Rate: 79 BPM Resp: 16 SpO2: 97 % BP: 173/76 mmHg BP Device: BP Machine Patient Position: Sitting BP Cuff Location: Right arm O2 Device: None (Room air) Physical Exam Nursing note and vitals reviewed. Constitutional: He is oriented to person, place, and time. He appears well- developed and well-nourished. No distress. HENT: Head: Normocephalic and atraumatic. Nose: No epistaxis. Mouth/Throat: Oropharynx is clear and moist. No oropharyngeal exudate or posterior oropharyngeal edema. Nasal mucosal erythema Eyes: Conjunctivae and extraocular motions are normal. Pupils are equal, round, and reactive to light. No scleral icterus. Neck: Normal range of motion. Neck supple. No JVD present. No tracheal deviation present. Cardiovascular: Normal rate and regular rhythm. No murmur heard. Pulmonary/Chest: Effort normal and breath sounds normal. No respiratory distress. He has no wheezes.He has no rales. Abdominal: Soft. Bowel sounds are normal. He exhibits no distension and no mass. Tenderness is present in the left upper quadrant. He has no rebound, no guarding and no CVA tenderness. Musculoskeletal: Normal range of motion. He exhibits no edema. Lymphadenopathy: He has no cervical adenopathy. Neurological: He is alert and oriented to person, place, and time. No cranial nerve deficit. He exhibits normal muscle tone. Skin: Skin is warm and dry. No rash noted. He is not diaphoretic. Psychiatric: He has a normal mood and affect. Radiology orders: CHEST PA AND LATERAL Read by ED staff: clear, pending final radiology read at time of discharge. Procedures ED Course: 1. CXR to check for pneumonia, bronchiectasis, etc. CXR was clear as read by ED staff. Final read pending at time of discharge 2. Patient discharged to home with instructions to follow up with PCP and educational information onupper GI bleed. Discharge Prescriptions New Prescriptions No Discharge Prescriptions for this patient MDM Number of Diagnoses or Management Options Hematemesis: new, no workup Dia - Figueroa tear: new, no workup Diagnosis management comments: DDx for hematemesis includes Dia Figueroa tear, PUD, variceal bleed.Dia Figueroa tear is most likely given his history of small amount of self limited hematemesis after 2 episodes of vomiting without blood. His background of URI symptoms has a broader differential but will need to be worked up by his PCP. (Differential includes mononucleosis, repeated URIs, chronic bronchitis, immunodeficiency, and more). CXR performed in the ED was clear. No additional medications given. 1. Hematemesis (578.0) 2. Dia - Figueroa tear (530.7R) probable PCP: Jazzy Ramos MD ([facility]). 12/28/2010 11:02 canned Note-Null - Inpatient, MD Dex - 12/28/2010 0000 EST documented in this encounter Plan of Treatment Not on filedocumented as of this encounter Procedures Procedure Name Priority Date/Time Associated Diagnosis Comme nts CHEST PA AND STAT 12/28/2010 11:17 Results for this LATERAL EST procedure are i n the results section. documented in this encounter Results CHEST PA AND LATERAL (12/28/2010 11:17 EST) Anatomical Region Laterality Modality Other Specimen Narrative [facility] - 12/28/2010 12:32 EST CHEST PA AND LAT ??Dec 28, 2010 11:17:00 AM Signs and Symptoms/Comments: ?? cough, p roductive Impression: 1. Hazy opacity, lingula. 2. Minimal bronchial wall thickening rig ht lower lobe. Comparison: Since April 02, 2009, there is some minimal opacity ?? adjacent to the left heart border in the lingula and some bronchial wall thickening seen in the right lower lobe. Although this most likely represents focal areas of atelect asis an early minimal infiltrate could give a similar radiogra phic appearance. Procedure Note 12/28/2010 CHEST PA AND LAT Dec 28, 2010 11:17:00 A M Signs and Symptoms/Comments: cough, prod uctive Impression: 1. Hazy opacity, lingula. 2. Minimal bronchial wall thickening rig ht lower lobe. Comparison: Since April 02, 2009, there is some minimal opacity adjacent to the left heart border in the lingula and some bronchial wall thickening seen in the right lower lobe. Although this most likely represents focal areas of atelect asis an early minimal infiltrate could give a similar radiogra phic appearance. Performing Organization Address City/State/ZIP Code Phon e Number [facility] documented in this encounter Visit Diagnoses Diagnosis Hematemesis Dia - Figueroa tear Gastroesophageal laceration-hemorrhage s yndrome documented in this encounter Care Teams Propulsion Systems Engineer Relationship Specialty Start Date End Date None, Provider PCP - General 12/28/10 01/18/11 documented as of this encounter
--- OUTSIDE RECORDS SUMMARY | 2022-06-05 06:52 | XMS_ITS | Encounter Summary ---
:1990 Author Organization [facility] Address [address] [place] [address] Care Team Providers Name Role Phone Ilan Kelly MD Primary Care Provider Reason for Visit Reason Onset Date Comments Medications Refill 07/12/2010 Encounter Details Date Type Department Care Team Description 07/12/2010 Refill [facility] Ilan Kelly MD Medications Refill Pediatric Primary Care - [address] [place] [address] [address] [place] [phone] (Wo rk) Social History Tobacco Use Types Packs/Day Years Used Date Never Assessed Sex Assigned at Date Recorded Male 09/05/2020 10:43 EDT documented as of this encounter Miscellaneous Notes Telephone Encounter - Felicita Simpson RN - 07/12/2010 1529 EDT Mother advised that Rajani Garrett is not able to fill the perscriptions anymore because pt has notbeen seen her for months , and has transitioned to [facility] care. elephone Encounter - Rajani Whatley - 07/12/2010 1330 EDT Fax over to [facility] wrenexor 75 effexor 150 documented in this encounter Plan of Treatment Not on filedocumented as of this encounter Visit Diagnoses Not on filedocumented in this encounter Care Teams Supervisor Network Control Operators Relationship Specialty Start Date End Date Ilan Kelly MD PCP - General 06/16/10 10/18/[address] [place] [phone] documented as of this encounter
--- OUTSIDE RECORDS SUMMARY | 2022-06-05 06:52 | XMS_ITS | Encounter Summary ---
:1990 Author Organization [facility] Address [address] [place] [address] Care Team Providers Name Role Phone None, Provider Primary Care Provider Unavailable Reason for Visit Reason Onset Date Comments Emesis 01/04/2011 w/blood Encounter Details Date Type Department Care Team Description 01/04/2011 Telephone [facility] Adult Ilan Kelly iot, Emesis (w/blood) Primary Care - Gabino lantigua MD [address] [place] [address] [place] [phone] (Wo rk) Social History Tobacco Use Types [...] encounter Miscellaneous Notes Telephone Encounter - Latasha Bee, RN - 01/04/2011 1936 EST Spoke with pt who was seen in ED on 12/28 and diagnosed with Ida-Figueroa tear. Pt still reports vomiting blood about twice a week. Pt advised he should be seen in office as follow-up, pt agreed. Pt scheduled to see Dr. Christianson 01/05 at 1100. Pt verbalized understanding with no barriers noted. elephone Encounter - Sara Cannon - 01/04/2011 1400 EST Pt has been vomiting w/blood x 1 week or more. Therapist is very concerned and would like someone tocall. Please call pt @ [phone]. documented in this encounter Plan of Treatment Not on filedocumented as of this encounter Visit Diagnoses Not on filedocumented in this encounter Care Teams Marine Engine Mechanic Relationship Specialty Start Date End Date None, Provider PCP - General 12/28/10 01/18/11 documented as of this encounter
--- OUTSIDE RECORDS SUMMARY | 2022-06-05 06:52 | XMS_ITS | Encounter Summary ---
:1990 Author Organization [facility] Address [address] [place] [address] Care Team Providers Name Role Phone Ilan Kelly MD Primary Care Provider Reason for Visit Reason Comments Shoulder Injury dislocated shoulder a couple of days ago, patient states and it happened again tonight Encounter Details Date Type Department Care Team Description 08/04/2010 [facility] Tristan Garcia, GOSIAC [address] [facility], [address] [place] [phone] Right shoulder strain Emergency Department Emergency, MD Pedro Pablo - [address] [address] Social History Tobacco Use Types Packs/Day Years Used Date Current Every Day Smoker 1 Alcohol Use Standard Drinks/Week Comments No 0 (1 standard drink = 0.6 oz pure alcoho l) Sex Assigned at Date Recorded Male 09/05/2020 10:43 EDT documented as of this encounter Last Filed Vital Signs Vital Sign Reading Time Taken Comments Blood Pressure 125/66 08/04/20102146 EDT Pulse - - Temperature 35.5 ??C (95.9 ??F) 08/04/20102146 EDT Respiratory Rate 18 08/04/2010 214 EDT Oxygen Saturation 96% 08/04/2010 214 EDT Inhaled Oxygen Concentration - - Weight - - Height - - Body Mass Index - - documented in this encounter Discharge Instructions Tristan Pollock Jr., PA - 08/04/2010 Images from the original note were not included. [facility] Patient Instructions Shoulder Sprain: After Your Visit Your Care Instructions A shoulder sprain occurs when you stretch or tear a ligament in your shoulder. Ligaments are tough tissues that connect one bone to another. A sprain can happen during sports, a fall, or projects around the house. Shoulder sprains usually get better with treatment at home. Follow-up care is a eugene part of your treatment and safety. Be sure to make and go to all appointments, and call your doctor if you are having problems. It???s also a good idea to know your test resultsand keep a list of the medicines you take. How can you care for yourself at home? ?? Rest and protect your shoulder. Try to stop or reduce any action that causes pain. ?? If your doctor gave you a sling or immobilizer, wear it as directed. A sling or immobilizer supports your shoulder and may make you more comfortable. ?? Put ice or a cold pack on your shoulder for 10 to 20 minutes at a time. Try to do this every 1 to2 hours for the next 3 days (when you are awake) or until the swelling goes down. Put a thin cloth between the ice and your skin. ?? Take pain medicines exactly as directed. ?? If the doctor gave you a prescription medicine for pain, take it as prescribed. ?? If you are not taking a prescription pain medicine, ask your doctor if you can take an [id number] medicine. ?? Do not take two or more pain medicines at the same time unless the doctor told you to. Many pain medicines have acetaminophen, which is Tylenol. Too much acetaminophen (Tylenol) can be harmful. ?? Take anti-inflammatory medicines to reduce pain and swelling. These include ibuprofen (Advil, Motrin) and naproxen (Aleve). Read and follow all instructions on the label. ?? For the first day or two after an injury, avoid things that might increase swelling, such as hot showers, hot tubs, or hot packs. ?? After 2 or 3 days, if your swelling is gone, apply a heating pad set on low or a warm cloth to your shoulder. This helps keep your shoulder flexible. Some doctors suggest that you go back and forth between hot and cold. Put a thin cloth between the heating pad and your skin. ?? Follow your doctor's or physical therapist's directions for exercises. ?? Return to your usual level of activity slowly. When should you call for help? Call your doctor now or seek immediate medical care if: ?? Your pain is worse. ?? You cannot move your shoulder. ?? Your arm is cool or pale or changes color below the shoulder. ?? You have tingling, weakness, or numbness in your arm. Watch closely for changes in your health, and be sure to contact your doctor if: ?? You do not get better as expected. Where can you learn more? Go to www.[employer].net/fahc Enter U672 in the search box to learn more about Shoulder Sprain: After Your Visit. ?? 2005 - 2008 [employer]. Care instructions adapted under license by [facility], [facility] . This care instruction is for use with your licensed healthcare professional. If youhave questions about a medical condition or this instruction, always ask your healthcare professional. [employer] disclaims any warranty or liability for your use of this information. documented in this encounter Medications at Time of Discharge Medication Sig Dispensed Refills Start Date End Date acetaminophen-codeine Take 1 Tab by mouth 12 Tab 0 08/0109/04/2010 (TYLENOL #3) 300-30 mg per every 6 hours as tablet needed for Pain. loratadine (CLARITIN) 10 Take 1 Tab by mouth 30 Tab 2 11/02/2010 mg tabletIndications: daily. Environmental allergies losartan (COZAAR) 25 mg Take 25 mg by mouth 0 03/08/2011 tablet daily. Melatonin 3 mg Tab Take 2 Tabs by 60 Tab 3 03/16/2010 mouth at bedtime. metformin (GLUCOPHAGE-XR) Take 1 Tab by mouth 90 Tab 2 0 07/27/2010 03/08/2011 500 mg XR daily. tabletIndications: High triglycerides oxycodone-acetaminophen Take 1 Tab by mouth 10 Tab 0 09/04/2010 (PERCOCET) 5-325 mg per every 4 hours as tablet needed for Pain. tocopheryl acetate Take 400 Units by 0 10/10/2011 (VITAMIN E) 200 unit mouth daily. capsule ursodiol (ACTIGALL) 300 mg Take 300 mg by 0 09/04/2010 capsule mouth 2 times daily. venlafaxine (EFFEXOR-XR) Take 1 Cap by mouth 30 Cap 0 09/20/2010 150 mg XR daily. capsuleIndications: Depression venlafaxine (EFFEXOR-XR) Take 1 Cap by mouth 30 Cap 0 09/20/2010 75 mg XR daily. capsuleIndications: Depression zolpidem (AMBIEN) 10 mg Take 1 Tab by mouth 30 Tab 0 10/201009/20/2010 tablet at bedtime as needed for Sleep. documented as of this encounter Ordered Prescriptions Prescription Sig Dispensed Refills Start Date End Date oxycodone-acetaminophen Take 1 Tab by mouth 10 Tab 0 09/04/2010 (PERCOCET) 5-325 mg per every 4 hours as tablet needed for Pain. documented in this encounter Discharge Disposition Disposition Code Departure Means Destination Home or Self Care Car Home documented in this encounter ED Notes Kiesha Nath RN - 08/04/2010 9477 EDT Pt verbalized understanding of d/c instructions. Sling applied with instructions YTTristan Garcia Jr., PA - 08/04/2010 7723 EDT Images from the original note were not included. DOS: 08/04/2010 Chief Complaint Patient presents with ??? Shoulder Injury dislocated shoulder a couple of days ago, patient states and it happened again tonight The patient is a 20 y.o. male who presents today with Shoulder Injury The history is provided by the patient (the patient arrives for the second time within a week for evaluation of right shoulder pain states that he popped it out last week while having sex and again tonight both times the shoulder was self reduced). Shoulder Injury The incident occurred 1 to 2 hours ago. The incident occurred at home. Injury mechanism: states he was having sex and arm popped out. The right shoulder is affected. The right shoulder is dislocated. The pain is moderate. The pain does not radiate. There is a history of shoulder injury. He has no other injuries. There is no history of shoulder surgery. Pertinent negatives include no numbness. Review of Systems Skin: Negative for rash, pallor and wound. Neurological: Negative for dizziness, weakness and numbness. Past Medical History Diagnosis Date ??? Hypertension ??? Diabetes mellitus ??? Asthma ??? Fatty liver ??? Chicken pox As a child History reviewed. No pertinent past surgical history. Allergies Allergen Reactions ??? Pollen Extracts ??? Pineapple History Substance Use Topics ??? Tobacco Use: Yes -- 1.0 packs/day ??? Alcohol Use: No History reviewed. No pertinent family history. Vital Signs Temp: 35.5 ??C (95.9 ??F) Temp src: Tympanic Heart Rate (monitor): 97 BPM Resp: 18 SpO2: 96 % BP: 125/66 mmHg BP Device: BP Machine Patient Position: Sitting BP Cuff Location: Left arm O2 Device: None (Room air) Physical Exam Constitutional: Obese white male appears in no acute distress laughing with his significant other Eyes: Pupils are equal, round, and reactive to light. Pulmonary/Chest: Effort normal. Musculoskeletal: Right shoulder: He exhibits tenderness and pain. He exhibits normal range of motion, no bony tenderness, no swelling, no effusion, no crepitus, no deformity, no laceration, no spasm, normal pulse and normal strength. Arms: Radiology orders: None Procedures ED Course: Patient with similar history one week prior had x-ray which was read as normal, it is unclear if this was a true dislocation I felt that x-ray at this time was unnecessary patient moving arm without obvious distress. We'll treat with pain medications a sling and followup with primary care physician. Girlfriend states that they haven't been unable to see an orthopedist Discharge Prescriptions New Prescriptions OXYCODONE-ACETAMINOPHEN (PERCOCET) 5-325 MG PER TABLET Take 1 Tab by mouth every 4 hours as needed for Pain. MDM 1. Right shoulder strain (840.9N) PCP: Ilan Kelly MD 08/04/2010 23:27 ED Attending Available for Supervision: Kristopher eMndoza documented in this encounter Miscellaneous Notes Scanned Note-Null - Inpatient, MD Dex - 08/04/2010 0000 EDT documented in this encounter Plan of Treatment Not on filedocumented as of this encounter Visit Diagnoses Diagnosis Right shoulder strain Sprain and strain of unspecified site of shoulder and upper arm documented in this encounter Administered Medications Inactive Administered Medications - up to 3 most recent administrations Medication Order MAR Action Action Date Dose Rate Site Oxycodone w APAP?? 5- 325 mg Tab Given 08/04/2010 23:15 EDT 1 Pa ckage STARTER PACK 1 Package, oral, NOW X1, 1 dose, On Sat08/04/10 at 2330, STAT documented in this encounter Active and Recently Administered Medications Times are shown in EDT. Scheduled Medication Order 08/02/2010 08/03/2010 08/04/2010 Oxycodone w APAP?? 5- 325 mg Tab STARTER PACK (COMPLETED) 2705 (Given - Provider: Kiesha Nath RN) 1 Package, Oral, NOW X1, 1 dose, Sat08/04/10 at 2330 documented in this encounter Orders Medications Ordered That Might Not Have Count Last Ord ered Date First Ordered Date Been Administered Oxycodone w APAP?? 5- 325 mg Tab STARTER 1 010 PACK documented in this encounter Care Teams Machine Hose Cutter Relationship Specialty Start Date End Date Ilan Kelly MD PCP - General 06/16/10 10/18/10 1 [facility] [address] [place] [address] documented as of this encounter
--- OUTSIDE RECORDS SUMMARY | 2022-06-05 06:52 | XMS_ITS | Encounter Summary ---
:1990 Author Organization Health system Address [address] [place] [address] Care Team Providers Name Role Phone Jazzy Ramos MD Primary Care Provider [phone] Reason for Visit Reason Onset Date Comments Other 10/20/2010 Encounter Details Date Type Department Care Team Description 10/20/2010 Telephone [facility] Adult Jazzy Ramos MD Other Primary Care - Gabino sweta [address] [facility] [address] [place], [place] [id number] [place] [address] [phone] (Wo rk) Social History Tobacco Use Types Packs/Day Years Used Date Current Every Day Smoker Cigarettes 1.5 2 Smokeless Tobacco: Never Used Comments: 10/20 [...] this encounter Miscellaneous Notes Telephone Encounter - Belle Nolan - 10/20/2010 1501 EST Just received a call from Zeeshan's mother. He was here for a 2:[address] Duarte. He was here on time for his appt and she said that other patient's were put in ahead of him. They left because he had to go to work. He was her for depression. I offered an appt on Saturday. She said no, I want him seenbefore then. What about tomorrow. I told her the clinic was open for acute visits tomorrow. She saidshe was going to take him out of this clinic and get a new doctor. She hung up on me. documented in this encounter Plan of Treatment Not on filedocumented as of this encounter Visit Diagnoses Not on filedocumented in this encounter Care Teams Fur Trimmer Relationship Specialty Start Date End Date Jazzy Ramos MD PCP - General 10/19/10 12/27/[address] [place] [id number] documented as of this encounter
--- OUTSIDE RECORDS SUMMARY | 2022-06-05 06:52 | XMS_ITS | Encounter Summary ---
:1990 Author Organization [facility] Address [address] [place] [address] Care Team Providers Name Role Phone Jazzy Jamison MD Primary Care Provider [phone] Reason for Visit Reason Comments Emesis Pt to the emergency departme nt with vomiting since September. States that it is worse today. Encounter Details Date Type Department Care Team Description 01/19/2011 Emergency [facility] Lauren Carter P A-C [address] [facility], [address] [place] [address] Pneumonia; Emergency Department - Emergency, MD Pedro Pablo [facility] [address] [place] [address] Social History Tobacco Use Types [...] Sign Reading Time Taken Comments Blood Pressure 126/70 01/19/20111936 EST Pulse - - Temperature 38 ??C (100.4 ??F) 01/19/2011 193 EST Respiratory Rate 18 01/19/2011 193 EST Oxygen Saturation 98% 01/19/2011 193 EST Inhaled Oxygen Concentration - - Weight 117.9 kg (260 lb) 01/19/20111936 EST Height 172.7 cm (5' 8) 01/19/2011 193 EST Body Mass Index 39.53 01/19/2011 193 EST documented in this encounter Discharge Instructions Lauren Bae PA - 01/19/2011 Medications as prescribed. Increase your fluids. Plenty of rest. Follow up with your doctor early next week. Return for worsening symptoms fever, difficulty breathing, chest pain, not tolerating antibiotic. You should have your blood count followed up by your physician to make sure it does not continue to fall. AttachmentsThe following attachments cannot be sent through Care Everywhere. PNEUMONIA IN ADULTS: AFTER YOUR VISIT ([place])documented in this encounter Medications at Time of [...] once daily on Days 2 through 5. doxycycline (VIBRA-TABS) Take 1 Tab by mouth [...] Sig Dispensed Refills Start Date End Date doxycycline (VIBRA-TABS) Take 1 Tab by mouth 14 Tab 0 01/26/2011 100 mg tablet 2 times daily for 7 days. documented in this encounter Discharge Disposition Disposition Code Departure Means Destination Home or Self Care Car Home documented in this encounter ED Notes Kiesha Nath RN - 01/19/2011 1479 EST Pt verbalized understanding of d/c instructions. Hernando Zaragoza - 01/19/2011 2156 EST Patient transported to x-ray via stretcher. Escorted by chief technical officer. Lauren Cross PA - 01/19/2011 2148 EST DOS: 01/19/2011 Chief Complaint Patient presents with ??? Emesis Pt to the emergency department with vomiting since September. States that it is worse today. The patient is a 20 y.o. male who presents today with Emesis HPI Comments: 20-year-old male patient here complaining of nausea, vomiting, cough, sore throat, fever. Patient states symptoms have been present since September. Patient was treated with a round of azithromycin in November does not remember end date. Patient states he did vomit 3-4 times per day, concerned that he may be lactose intolerant. Patient states he tried to ED hamburger and chinese fries earlier and vomited. Patient states yesterday he pizza and vomited after eating pizza. Patient states hasbeen having intermittent nosebleeds over the past couple months. Patient with a history of asthma, productive cough of yellow, green sputum. Patient with fever intermittently since September. Patient's been taking ibuprofen for his symptoms. Patient has been using his Pro-air and Flovent. His mother has been sick recently with bronchitis. Patient states he's noticed blood in his vomitus. Patient denies any blood in his stools. Patient was able to tolerate den junior prior to his evaluation. The history is provided by the patient and a parent. Emesis Associated symptoms include abdominal pain, chills, cough and a fever. Pertinent negatives include no diarrhea. Review of Systems Constitutional: Positive for fever and chills. HENT: Positive for nosebleeds and sore throat. Negative for neck pain, neck stiffness and sinus pressure. Respiratory: Positive for cough, chest tightness and shortness of breath. Negative for choking and wheezing. Cardiovascular: Positive for chest pain. Gastrointestinal: Positive for nausea, vomiting and abdominal pain. Negative for diarrhea and blood in stool. Genitourinary: Negative for dysuria. Musculoskeletal: Negative for back pain. Neurological: Positive for weakness and light-headedness. All other systems reviewed and are negative. [...] Artery Disease Other great-uncle Vital Signs Temp: 38 ??C (100.4 ??F) Temp src: Tympanic Heart Rate: 105 BPM Resp: 18 SpO2: 98 % SpCO: 8 % BP: 126/70 mmHg BP Device: BP Machine Patient Position: Sitting BP Cuff Location: Right arm O2 Device: None (Room air) Physical Exam Nursing note and vitals reviewed. Constitutional: He is oriented to person, place, and time. He appears well- developed and well-nourished. HENT: Head: Normocephalic. Right Ear: External ear normal. Left Ear: External ear normal. Dry mucosa Eyes: Conjunctivae and extraocular motions are normal. Pupils are equal, round, and reactive to light. Neck: Normal range of motion. Neck supple. Cardiovascular: Normal rate, regular rhythm and normal heart sounds. No murmur heard. Pulmonary/Chest: Effort normal and breath sounds normal. He has no wheezes. Abdominal: Soft. Bowel sounds are normal. Tenderness (right upper quadrant pain, epigastric) is present. He has no rebound and no guarding. Lymphadenopathy: He has no cervical adenopathy. Neurological: He is alert and oriented to person, place, and time. Skin: Skin is warm. Psychiatric: He has a normal mood and affect. Radiology orders: CHEST PA AND LATERAL CHEST PA AND LATERAL (Results Pending) Procedures ED Course: Patient seen in emergency department on December 28 for similar symptoms diagnosed with Dia-Figueroa tear. CXR discussed with Radiology concern for new infiltrate, pt had been treated with azithromycin in November still with continued symptoms, hgb/hct have decreased will do rectal and then treat pt with Doxy for 7 days, follow up with PCP. 2325 pt refusing rectal exam, mother present wants him to have it done, refuses, starts yelling at mother, she walks out, pt wants to leave, tearful, would not discuss why he is upset. Explained to pt will place on different antibiotic, zofran for nausea and he needs to follow up with primary early next week. Discharge Prescriptions New Prescriptions DOXYCYCLINE (VIBRA-TABS) 100 MG TABLET Take 1 Tab by mouth 2 times daily for 7 days. MDM Number of Diagnoses or Management Options Diagnosis management comments: URI, gastritis, electrolyte imbalance, UTI, bronchitis, pneumonia, mycoplasma pneumonia, GERD, cholecystitis 5 Amount and/or Complexity of Data Reviewed Clinical lab tests: ordered Obtain history from someone other than the patient: yes (mother) Review and summarize past medical records: yes 1. Pneumonia (486F) 2. Vomiting (787.03B) PCP: JAZZY JAMISON MD 01/20/2011 2:45 ED Attending Available for Supervision: Kristopher Mendoza malKiesha infante RN - 01/19/20112056 EST Pt brought back to room. Pt drinking soda, c/o about giving a urine sample. documented in this encounter Miscellaneous Notes Scanned Note-Null - Inpatient, PhysicianMD - 01/19/2011 0000 EST documented in this encounter Plan of Treatment Not on filedocumented as of this encounter Procedures Procedure Name Priority Date/Time Associated Comments Diagnosis POCT URINE DIPSTICK, STAT 01/19/2011 22:40 Res ults for this [facility]INITE[facility] EST procedure are i n the results section. HOLD GREEN TOP Routine 01/19/2011 22:09 Results f or this EST procedure are i n the results section. HOLD BLUE TOP Routine 01/19/2011 22:09 Results fo r this EST procedure are i n the results section. COMPLETE BLOOD COUNT STAT 01/19/2011 22:09 Res ults for this AND DIFFERENTIAL EST procedure a re in the results section. BUN STAT 01/19/2011 22:09 Results for this EST procedure are i n the results section. LIPASE STAT 01/19/2011 22:09 Results for this EST procedure are i n the results section. GLUCOSE, SERUM STAT 01/19/2011 22:09 Results f or this EST procedure are i n the results section. CREATININE STAT 01/19/2011 22:09 Results for this EST procedure are i n the results section. HEPATIC FUNCTION STAT 01/19/2011 22:09 Results for this PANEL (ALB,ALK EST procedure are in PHOS,ALT,AST,DBIL,TOT the re sults JULIOCESAR,TOT PROT) section. CHEST PA AND LATERAL STAT 01/19/2011 21:55 Res ults for this EST procedure are i n the results section. documented in this encounter Results (ABNORMAL) POCT URINE DIPSTICK (01/19/2011 22:40 EST) Pathologist Sig nature Color, UA Yellow POINT OF CARE Clarity, UA Clear POINT OF CARE Glucose, UA Negative Negative mg/dL POINT OF CARE Bilirubin, UA Negative Negative POINT OF CARE Ketones, UA Negative Negative mg/dL POINT OF CARE Spec Grav, UA 1.020 1.010, 1.015, 1.020, POINT OF CARE 1.025 Blood, UA 1+ (A) Negative POINT OF CARE pH, UA 7.0 4.6 - 8.0 POINT OF CARE Protein, UA Negative Negative mg/dL POINT OF CARE Urobilinogen, UA 1.0 0.2 - 1.0 E.U./dL POINT OF CARE Nitrite, UA Negative Negative POINT OF CARE Leuk Esterase Negative Negative POINT OF CARE Comment POINT OF CARE Specimen Urine (substance) Performing Organization Address City/[facility]/ZIP Code Phon e Number [facility] POINT OF CARE POINT OF CARE HOLD GREEN TOP (01/19/2011 22:09 EST) Pathologist Sig nature Hold Green Top Hold for further [facility] testing. Specimen will be held for 5 days. Specimen Performing Organization Address City/[facility]/ZIP Code Phon e Number [facility] [address] [place] [address] SERVICES [facility] [address] [place] [address] HOLD BLUE TOP (01/19/2011 22:09 EST) Pathologist Sig nature Hold Blue Top Sample for [facility] coagulation will be discarded after 4 hours Specimen Performing Organization Address City/[facility]/ZIP Code Phon e Number [facility] [address] [place] [address] SERVICES [facility] [address] [place] [address] LIPASE (01/19/2011 22:09 EST) Pathologist Sig nature Lipase 31 0 - 250 U/L [facility] Specimen Blood specimen (specimen) Performing Organization Address City/[facility]/ZIP Code Phon e Number [facility] [address] [place] [address] SERVICES [facility] [address] [place] [address] LIVER FUNCTION TESTS (01/19/2011 22:09 EST) Pathologist Sig nature Albumin 4.4 3.4 - 4.9 g/dl [facility] Total Protein 7.2 6.5 - 8.3 g/dl [facility] Total Alkaline 72 38 - 126 U/L [facility] Phosphatase ALT 57 21 - 72 U/L [facility] AST 30 15 - 46 U/L [facility] Unconjugated Bilirubin 0.5 0.1 - 1.1 mg/dl [facility] Conjugated Bilirubin 0.0 0.0 - 0.3 mg/dl [facility] B Bilirubin, Total 0.5 0.2 - 1.3 mg/dl [facility] Specimen Blood specimen (specimen) Performing Organization Address [facility]/ZIP Code Phon e Number [facility] [address] [place] [address] SERVICES [facility] [address] [place] [address] GLUCOSE, SERUM (01/19/2011 22:09 EST) Pathologist Sig nature Glucose, Serum 84 70 - 100 mg/dl [facility] Specimen Blood specimen (specimen) Performing Organization Address [facility]/ZIP Code Phon e Number [facility] [address] [place] [address] SERVICES [facility] [address] [place] [address] CREATININE (01/19/2011 22:09 EST) Pathologist Sig nature Creatinine 0.90 0.7 - 1.5 mg/dl [facility] GFR, Calculated >60 ml/min/1.73m2 [facility] Specimen Blood specimen (specimen) Performing Organization Address City/[facility]/ZIP Code Phon e Number [facility] [address] [place] [address] SERVICES [facility] [address] [place] [address] BUN (01/19/2011 22:09 EST) Pathologist Sig nature BUN 11 10 - 26 mg/dl [facility] Specimen Blood specimen (specimen) Performing Organization Address City/[facility]/ZIP Code Phon e Number [facility] [address] [place] [address] SERVICES [facility] [address] [place] [address] (ABNORMAL) HEMAGRAM AND DIFFERENTIAL (01/19/2011 22:09 EST) Pathologist Sig nature WBC 7.31 4.0 - 10.4 K/cmm [facility] RBC 4.40 4.36 - 5.78 M/cmm [facility] Hemoglobin 13.5 (L) 13.8 - 17.3 gm/dl [facility] HCT 38.8 (L) 39.5 - 50.2 % [facility] MCV 88 81 - 95 fl [facility] MCH 30.8 27.6 - 33.0 pg [facility] MCHC 34.9 32.8 - 36.4 gm/dl [facility] PLT 178 141 - 320 K/cmm [facility] RDW-CV 14.4 (H) 11.8 - 14.1 % [facility] Neutrophils 71.1 45.5 - 79.7 % [facility] Lymphocytes 19.3 15.0 - 46.8 % [facility] Monocytes 8.9 1.8 - 12.0 % [facility] Eosinophils 0.3 (L) 0.6 - 6.9 % [facility] Basophils 0.4 0.2 - 1.4 % [facility] ABS Neutrophils 5.20 2.20 - 8.85 K/cmm [facility] ABS Lymphs 1.41 1.09 - 3.30 K/cmm [facility] ABS Monocytes 0.65 0.1 - 0.8 K/cmm [facility] ABS Eosinophils 0.02 (L) 0.03 - 0.61 K/cmm [facility] ABS Basophils 0.03 0.01 - 0.11 K/cmm [facility] Type of Diff: Automated [facility] Specimen Blood specimen (specimen) Performing Organization Address City/State/ZIP Code Phon e Number [facility] [address] [place] [address] SERVICES [facility] [address] [place] [address] CHEST PA AND LATERAL (01/19/2011 21:55 EST) Anatomical Region Laterality Modality Other Specimen Narrative [facility] - 01/20/2011 8:14 EST CHEST PA AND LAT ??Jan 19, 2011 09:55:00 PM Signs and Symptoms/Comments: ??fever Comparison: December 28, 2010 chest x-ra y. Findings: PA and lateral views of the est show interval increase in patchy opacity within the right lower lo be beneath the hilum on the AP view and in a retrocardiac location o n the lateral view which is suspicious for infiltrate. The remainder of the chest appears relatively clear and unchanged from prio r. There is no pleural effusion or pneumothorax. The cardiomedi astinal silhouette and pulmonary vascularity appear within norm al limits. No significant osseous abnormality is identified. Impression: Possible right lower lobe pn eumonia. These findings were discussed with ??LAUREN ??OSWALDO by Dr. Hernandez at the time of the study. I have personally reviewed the images an d the above interpretation and agree with the findings. Procedure Note Alejo Hernandez - 01/20/2011 CHEST PA AND LAT Jan 19, 2011 09:55:00 P M Signs and Symptoms/Comments: fever Comparison: December 28, 2010 chest x-ra y. Findings: PA and lateral views of the est show interval increase in patchy opacity within the right lower lo be beneath the hilum on the AP view and in a retrocardiac location o n the lateral view which is suspicious for infiltrate. The remainder of the chest appears relatively clear and unchanged from prio r. There is no pleural effusion or pneumothorax. The cardiomedi astinal silhouette and pulmonary vascularity appear within norm al limits. No significant osseous abnormality is identified. Impression: Possible right lower lobe pn eumonia. These findings were discussed with LAUREN ALCARAZ by Dr. Hernandez at the time of the study. I have personally reviewed the images an d the above interpretation and agree with the findings. Performing Organization Address City/State/ZIP Code Phon e Number [facility] documented in this encounter Visit Diagnoses Diagnosis Pneumonia Pneumonia, organism unspecified Vomiting Vomiting alone documented in this encounter Administered Medications Inactive Administered Medications - up to 3 most recent administrations Medication Order MAR Action Action Date Dose Rate Site acetaminophen (TYLENOL) tablet Given 01/19/2011 22:25 EST 1,000 mg 1,000 mg 1,000 mg, oral, NOW X1, 1 dose, On Sat01/19/11 at 2215, STAT doxycycline (VIBRA-TABS) tablet 100 mg Given 01/19/2011 23:39 EST 100 mg 100 mg, oral, EVERY 12 HOURS, 1 dose, First dose on Sat01/19/11 at 2345, STAT famotidine (PEPCID) 20 mg/2 mL injection 20 mg Given 01/19/2011 22:25 EST 20 mg 20 mg, intravenous, NOW X1, 1 dose, On Sat01/19/11 at 2215, STAT ondansetron (PF) (ZOFRAN) injection 4 mg Given 01/19/2011 22:25 EST 4 mg 4 mg, intravenous, NOW X1, 1 dose, On Sat01/19/11 at 2215, STAT ondansetron 4 mg ODT tab STARTER PACK Given 01/19/2011 23:39 EST 1 Package 1 Package, oral, NOW X1, 1 dose, On Sat01/19/11 at 2345, STAT sodium chloride 0.9 % 1,000 mL BOLUS Given 01/19/2011 22:25 EST 1,000 mL 1,000 mL, intravenous, ONCE, 1 dose, Starting on Sat01/19/11 at 2215, Until Sat01/19/11 at 2225, STAT documented in this encounter Active and Recently Administered Medications Times are shown in EST. Scheduled Medication Order 01/17/2011 01/18/2011 01/19/2011 acetaminophen (TYLENOL) tablet 1,000 mg (COMPLETED) 2224 (Given - Provider: Hernando Carter) 1,000 mg, Oral, NOW X1, 1 dose, Sat01/19/11 at 2215 doxycycline (VIBRA-TABS) tablet 100 mg (COMPLETED) 2339 (Given - Provider: Kiesha Nath RN) 100 mg, Oral, EVERY 12 HOURS, 1 dose, First dose on Sat01/19/11 a t 2345 famotidine (PEPCID) 20 mg/2 mL injection 20 mg (COMPLETED) 2224 (Given - Provider: Hernando Carter) 20 mg, Intravenous, NOW X1, 1 dose, 01/19/11 at 2215 ondansetron (PF) (ZOFRAN) injection 4 mg (COMPLETED) 2224 (Given - Provider: Hernando Carter) 4 mg, Intravenous, NOW X1, 1 dose, 01/19/11 at 2215 ondansetron 4 mg ODT tab STARTER PACK (COMPLETED) 2339 (Given - Provider: Kiesha Nath RN) 1 Package, Oral, NOW X1, 1 dose, Sat01/19/11 at 2345 sodium chloride 0.9 % 1,000 mL BOLUS (COMPLETED) 2225 (Given - Provider: Hernando Carter) 1,000 mL, Intravenous, ONCE, 1 dose, First dose on Sat01/19/11 at 2215 documented in this encounter Care Teams Peeler Operator Relationship Specialty Start Date End Date Jazzy Jamison MD PCP - General 01/19/11 01/28/[address] [place] [address] documented as of this encounter
--- OUTSIDE RECORDS SUMMARY | 2022-06-05 06:52 | XMS_ITS | Encounter Summary ---
:1990 Author Organization [facility] Address [address] [place] [address] Care Team Providers Name Role Phone Rajani Garrett Primary Care Provider Unavailable Encounter Details Date Type Department Care Team Description 02/21/2010 Hospital Encounter [facility] - Jocelyne Munoz MD [address] [phone] (Wo rk) Social History Tobacco Use Types Packs/Day Years Used Date Never Assessed Sex Assigned at Date Recorded Male 09/05/2020 10:43 EDT documented as of this encounter Medications at Time of Discharge Medication Sig Dispensed Refills Start Date End Date clonidine (CATAPRES) 0.1 Take 0.1 mg by mouth 0 08/01/2010 mg tablet daily. lisinopril (PRINIVIL, Take 5 mg by mouth 0 08/01/2010 ZESTRIL) 5 mg tablet daily. loratadine (CLARITIN) 10 Take 10 mg by mouth 0 07/24/2010 mg tablet daily. Melatonin 3 mg Tab Take 6 mg by mouth at 0 03/16/2010 bedtime. metformin Take 500 mg by mouth 0 04/19 (GLUCOPHAGE-XR) 500 mg daily. XR tablet tocopheryl acetate Take 400 Units by 0 10/10/2011 (VITAMIN E) 200 unit mouth daily. capsule UNABLE TO FIND 10 mg. Med Name: 0 07/19 Doxepin HCL UNABLE TO FIND Med Name: Blood 0 08/01 pressure med ursodiol (ACTIGALL) 300 Take 300 mg by mouth 0 09/04/2010 mg capsule 2 times daily. venlafaxine (EFFEXOR-XR) Take 1 Cap by mouth 30 Cap 0 05/03/2010 150 mg XR capsule daily. venlafaxine (EFFEXOR-XR) Take 225 mg by mouth 0 08/01/2010 37.5 mg XR capsule daily. venlafaxine (EFFEXOR-XR) Take 1 Cap by mouth 30 Cap 0 05/03/2010 75 mg XR capsule daily. zolpidem (AMBIEN) 5 mg Take 10 mg by mouth 0 05/15/2010 tablet at bedtime. documented as of this encounter Discharge Disposition Disposition Code Departure Means Destination Home or Self Correction documented in this encounter Plan of Treatment Not on filedocumented as of this encounter Procedures Procedure Name Priority Date/Time Associated Comments Diagnosis COMPLETE BLOOD COUNT Routine 02/21/2010 17:50 Res ults for this AND DIFFERENTIAL EDT procedure a re in the results section. LIPID PROFILE Routine 02/21/2010 17:50 Results fo r this (INCLUDES CHOLESTEROL, EDT proce dure are in TRIGLYCERIDES, HDL, the resu lts LDL) section. COMPREHENSIVE Routine 02/21/2010 17:50 Results fo r this METABOLIC PANEL (CMP) EDT proced ure are in the results section. documented in this encounter Results (ABNORMAL) LIPID PROFILE (INCLUDES CHOLESTEROL, TRIGLYCERIDES, HDL, LDL) (02/21/2010 17:50 EDT) Cholesterol 215 mg/dl [facility] Comment: LAB Desirable:<200 Borderline High:200-239 High:>yf=188 Triglycerides 228 (H) 34 - 140 mg/dl [facility] HDL 41 mg/dl [facility] Comment: LAB Low:<40 High(Desirable):>or=60 LDL, Calculated 128 mg/dl [facility] Comment: LAB Optimal:<100 Above optimal:100-129 Borderline High:130-159 High:160-189 Very High:>ba=863 Chol/HDL Ratio 5.2 [facility] Fasting? No [facility] Specimen Blood specimen (specimen) Performing Organization Address City/State/ZIP Code Phon e Number [facility] [address] [place] [address] SERVICES [facility] [address] [place] [address] HEMAGRAM AND DIFFERENTIAL (02/21/2010 17:50 EDT) Pathologist Sig nature WBC 10.45 4.6 - 11.2 K/cmm [facility] RBC 5.25 4.50 - 5.30 M/cmm [facility] Hemoglobin 15.9 13.0 - 16.0 gm/dl [facility] HCT 45.1 37.0 - 49.0 % [facility] MCV 86 78 - 98 fl [facility] MCH 30.3 pg [facility] MCHC 35.3 gm/dl [facility] PLT 274 156 - 312 K/cmm [facility] RDW-CV 13.9 % [facility] Neutrophils 59.1 % [facility] Lymphocytes 31.6 % [facility] Monocytes 7.0 % [facility] Eosinophils 1.9 % [facility] Basophils 0.4 % [facility] ABS Neutrophils 6.18 K/cmm [facility] ABS Lymphs 3.30 K/cmm [facility] ABS Monocytes 0.73 K/cmm [facility] ABS Eosinophils 0.20 K/cmm [facility] ABS Basophils 0.04 K/cmm [facility] Type of Diff: Automated [facility] Specimen Blood specimen (specimen) Performing Organization Address City/State/ZIP Code Phon e Number [facility] [address] [place] [address] SERVICES [facility] [address] [place] [address] (ABNORMAL) COMPREHENSIVE METABOLIC PANEL (02/21/2010 17:50 EDT) Pathologist Sig nature Potassium 4.4 3.5 - 5.0 mEq/L [facility] Sodium 138 136 - 145 mEq/L [facility] Chloride 104 96 - 110 mEq/L [facility] CO2 25 24 - 32 mEq/L [facility] Total Alkaline 127 65 - 260 U/L [facility] Phosphatase Bilirubin, Total <0.5 0.0 - 1.4 mg/dl [facility] AST 54 (H) 15 - 46 U/L [facility] ALT 60 (H) 0 - 45 U/L [facility] Albumin 4.7 3.0 - 5.5 g/dl [facility] Total Protein 7.5 6.3 - 8.6 g/dl [facility] Creatinine 0.84 0.6 - 1.2 mg/dl [facility] GFR, Calculated Age <18 ml/min/1.73m2 [facility] BUN 11 8 - 21 mg/dl [facility] Calcium 9.5 8.5 - 10.5 [facility] mg/dl Calculated Calcium 9.2 8.5 - 10.5 [facility] mg/dl Glucose, Serum 74 70 - 100 mg/dl [facility] Fasting? No [facility] Specimen Blood specimen (specimen) Performing Organization Address City/State/ZIP Code Phon e Number [facility] [address] [place] [address] SERVICES [facility] [address] [place] [address] documented in this encounter Visit Diagnoses Not on filedocumented in this encounter Care Teams Fire Operations Forester Relationship Specialty Start Date End Date Rajani Garrett PCP - General 03/10/09 06/15/10 documented as of this encounter
--- OUTSIDE RECORDS SUMMARY | 2022-06-05 06:52 | XMS_ITS | Encounter Summary ---
:1990 Author Organization [facility] Address [address] [place] [address] Care Team Providers Name Role Phone Ilan Kelly MD Primary Care Provider Reason for Visit Reason Onset Date Comments Follow-up 02/01/2011 Encounter Details Date Type Department Care Team Description 02/01/2011 Telephone [facility] Adult Job Reardon MD Follow-up Primary Care - [address] [place] [address] [place] [phone] (Wo rk) Social History Tobacco Use Types [...] this encounter Miscellaneous Notes Telephone Encounter - Job Reardon III, MD - 02/01/2011 1822 EDT I reviewed the results of his CT scan. - schedule f/u in resident clinic, with Dr. Arechiga if possible, in 1 week to make sure GI sxs are improved or resolved documented in this encounter Plan of Treatment Not on filedocumented as of this encounter Visit Diagnoses Not on filedocumented in this encounter Care Teams Cook Pickled Meat Relationship Specialty Start Date End Date Ilan Kelly MD PCP - General 01/29/11 03/18/13 1 [facility] 1 [place] [address] documented as of this encounter
--- OUTSIDE RECORDS SUMMARY | 2022-06-05 06:52 | XMS_ITS | Encounter Summary ---
:1990 Author Organization [facility] Address [address] [place] [address] Care Team Providers Name Role Phone Ilan Kelly MD Primary Care Provider Reason for Visit Reason Onset Date Comments Medications Refill 07/27/2010 Encounter Details Date Type Department Care Team Description 07/27/2010 Refill [facility] Ricky Garcia LPN Medications Refill Pediatric Primary Care - [address] [place] [id number] [place] [address] Social History Tobacco Use Types Packs/Day Years Used Date Never Assessed Sex Assigned at Date Recorded Male 09/05/2020 10:43 EDT documented as of this encounter Ordered Prescriptions Prescription Sig Dispensed Refills Start Date End Date metformin (GLUCOPHAGE-XR) Take 1 Tab by 90 Tab 2 010 03/08/2011 500 mg XR mouth daily. tabletIndications: High triglycerides documented in this encounter Miscellaneous Notes Telephone Encounter - Kelly Holguin MD - 07/27/2010 1234 EDT Agree with change. Kelly Holguin MD Telephone Encounter - Nikia Garcia - 07/27/2010 1028 EDT Last refill 05/15/10 for 30 tabs with 3 refills but Medicaid want script to be For 90 days. documented in this encounter Plan of Treatment Not on filedocumented as of this encounter Visit Diagnoses Diagnosis High triglycerides Pure hyperglyceridemia documented in this encounter Discontinued Medications Medication Sig Discontinue Reason Start Date End Date metformin (GLUCOPHAGE-XR) Take 1 Tab by mouth Reorder 05/15/20 10 07/27/2010 500 mg XR tablet daily. documented as of this encounter Care Teams System Controller Relationship Specialty Start Date End Date Ilan Kelly MD PCP - General 06/16/10 10/18/10 1 [facility] 1 [place] [phone] documented as of this encounter
--- OUTSIDE RECORDS SUMMARY | 2022-06-05 06:52 | XMS_ITS | Encounter Summary ---
:1990 Author Organization [facility] Address [address] [place] [address] Care Team Providers Name Role Phone Rajani Garrett Primary Care Provider Unavailable Reason for Visit Reason Onset Date Comments Medications Refill 06/09/2010 Encounter Details Date Type Department Care Team Description 06/09/2010 Refill [facility] Rajani Garrett Medications Refill Pediatric Primary Care - [address] [id number] Social History Tobacco Use Types Packs/Day Years Used Date Never Assessed Sex Assigned at Date Recorded Male 09/05/2020 10:43 EDT documented as of this encounter Ordered Prescriptions Prescription Sig Dispensed Refills Start Date End Date venlafaxine (EFFEXOR-XR) Take 1 Cap by mouth 30 Cap 0 07/19/2010 150 mg XR capsule daily. venlafaxine (EFFEXOR-XR) Take 1 Cap by mouth 30 Cap 0 07/19/2010 75 mg XR capsule daily. documented in this encounter Miscellaneous Notes Telephone Encounter - Tor Pickard MD - 06/09/2010 1644 EDT Reviewed and approve refill. Tor Pickard MD elephone Encounter - Nikia Garcia - 06/09/2010 1624 EDT Last refill 05/03/10 Has yashira. 06/21/10 with adult MD in [facility]. elephone Encounter - Rajani Whatley - 06/09/2010 1602 EDT Fax into [facility] [address] HE WILL BE SEEING A NEW DR SOON, HE HAS AN APPOINTMENT SET UP documented in this encounter Plan of Treatment Not on filedocumented as of this encounter Visit Diagnoses Not on filedocumented in this encounter Discontinued Medications Medication Sig Discontinue Reason Start Date End Date venlafaxine (EFFEXOR-XR) Take 1 Cap by mouth Reorder 0 06/09/2010 75 mg XR capsule daily. venlafaxine (EFFEXOR-XR) Take 1 Cap by mouth Reorder 0 06/09/2010 150 mg XR capsule daily. documented as of this encounter Care Teams Shovel Handle Assembler Relationship Specialty Start Date End Date Rajani Garrett PCP - General 03/10/09 06/15/10 documented as of this encounter
--- OUTSIDE RECORDS SUMMARY | 2022-06-05 06:52 | XMS_ITS | Encounter Summary ---
:1990 Author Organization [facility] Address [address] [place] [address] Care Team Providers Name Role Phone Jazzy Ramos MD Primary Care Provider [phone] Reason for Visit Reason Onset Date Comments Prior Auth, Medication 01/25/2011 Encounter Details Date Type Department Care Team Description 01/25/[address] [facility] Jazzy Ramos or [place], Medication Adult Primary Care - MD Toby [place] [address] [facility] 1 [facility] [address] [place], [place] [id number] [place] [address] [phone] (Wo rk) Social History Tobacco Use [...] this encounter Miscellaneous Notes Telephone Encounter - Sara Cannon - 01/25/2011 1650 EST Ok to switch to Xopenex per Brenda Bee RN. elephone Encounter - Sara Cannon - 01/25/2011 1648 EST Preferred is Xopenex or Maxair. Can this be changed. elephone Encounter - Lauren Mayer - 01/25/2011 1238 EST [facility] ID: [id number]. . documented in this encounter Plan of Treatment Not on filedocumented as of this encounter Visit Diagnoses Not on filedocumented in this encounter Care Teams Wind Farm Operations Manager Relationship Specialty Start Date End Date Jazzy Ramos MD PCP - General 01/19/11 01/28/[address] [place] [address] documented as of this encounter
--- OUTSIDE RECORDS SUMMARY | 2022-06-05 06:52 | XMS_ITS | Encounter Summary ---
:1990 Author Organization [facility] Address [address] [place] [address] Care Team Providers Name Role Phone Jazzy Ramos MD Primary Care Provider [phone] Reason for Visit Reason Comments Depression Encounter Details Date Type Department Care Team Description 10/20/2010 Office Visit [facility] Adult Unknown , Provider, Primary Care - Bi Perez MD [address] [place] [phone] 1 [facility] Hill Duarte MD [address] [place], [place] [phone] [place], [place] [address] Social History Tobacco Use Types Packs/Day Years [...] Sign Reading Time Taken Comments Blood Pressure 138/76 10/20/2010 1412 right arm, large cuff EST Pulse 92 10/20/2010 1412 regular EST Temperature 35.7 ??C (96.3 ??F) 10/20/2010 1412 EST Respiratory Rate 20 10/20/2010 1412 EST Oxygen Saturation - - Inhaled Oxygen - - Concentration Weight 125.4 kg (276 lb 8 10/20/2010 1412 without shoes oz) EST Height - - Body Mass Index 41.73 09/28/2010 1301 EST documented in this encounter Plan of Treatment Not on filedocumented as of this encounter Visit Diagnoses Not on filedocumented in this encounter Care Teams Ecological Risk Assessor Relationship Specialty Start Date End Date Jazzy Ramos MD PCP - General 10/19/10 12/27/[address] [place] [address] documented as of this encounter
--- OUTSIDE RECORDS SUMMARY | 2022-06-05 06:52 | XMS_ITS | Encounter Summary ---
:1990 Author Organization [facility] Address [address] [place] [address] Care Team Providers Name Role Phone Ilan Kelly MD Primary Care Provider Reason for Visit Reason Onset Date Comments Medications Refill 09/20/2010 Encounter Details Date Type Department Care Team Description 09/20/2010 Refill [facility] Adult Ilan Kelly MD Medications Refill Primary Care - [address] [place] [address] [place], [place] [phone] (Wo rk) Social History Tobacco Use Types [...] 1 Tab by mouth 30 Tab 0 01/201010/18/2010 tablet at bedtime as needed for Sleep. venlafaxine (EFFEXOR-XR) Take 1 Cap by mouth 30 Cap 3 11/22/2010 150 mg XR daily. capsuleIndications: Depression venlafaxine (EFFEXOR-XR) Take 1 Cap by mouth 30 Cap 3 10/25/2010 75 mg XR daily. capsuleIndications: Depression documented in this encounter Miscellaneous Notes Telephone Encounter - Ursula Allen - 09/21/2010 1218 EDT Zolpidem called in to [facility]. elephone Encounter - Jax Ramos - 09/21/2010 1202 EDT Refilled effexor XR 150 mg and 75 mg #30 with 3 refills. Refilled ambien 10 mg #30 qhs prn with no refills. Jacinto Ramos MD documented in this encounter Plan of Treatment Not on filedocumented as of this encounter Visit Diagnoses Diagnosis Depression - Primary Depressive disorder, not elsewhere class ified documented in this encounter Discontinued Medications Medication Sig Discontinue Reason Start Date End Date venlafaxine (EFFEXOR-XR) Take 1 Cap by mouth Reorder 0 09/20/2010 75 mg XR daily. capsuleIndications: Depression venlafaxine (EFFEXOR-XR) Take 1 Cap by mouth Reorder 0 09/20/2010 150 mg XR daily. capsuleIndications: Depression zolpidem (AMBIEN) 10 mg Take 1 Tab by mouth Reorder 02/27/2010 09/20/2010 tablet at bedtime as needed for Sleep. documented as of this encounter Care Teams Clinical Pharmacologist Relationship Specialty Start Date End Date Ilan Kelly MD PCP - General 06/16/10 10/18/10 1 [facility] Level [address] [place] [address] documented as of this encounter
--- OUTSIDE RECORDS SUMMARY | 2022-06-05 06:52 | XMS_ITS | Encounter Summary ---
:1990 Author Organization [facility] Address [address] [place] [address] Care Team Providers Name Role Phone Jazzy Ramos MD Primary Care Provider Reason for Referral Consult (Routine) - Closed Specialty Diagnoses / Procedures Referred By Contact Refer red To Contact Nutrition Diagnoses Obesity Metabolic syndrome Bi Barlow MD [facility] [address] [place] [phone] [place] [phone] Fax: Referral ID Status Reason Start Date Expiration Date Visits V isits Requested Authorized [id number] Closed Specialty 10/25/2010 1 1 Services Required Question Answer Reason for Request: 20 yo man with obesity, meta bolic syndrome in need of nutritional counseling and meal planning . Reason for Visit Reason Comments Depression Insomnia Encounter Details Date Type Department Care Team Description 10/25/2010 Office Visit [facility] Unknown, Andrea mabry MD Depression; Adult Primary Care - Carlos Jason MD Obesity; [place] Bi Barlow MD [address] [place] [address] Metabolic syndrome 1 [place] [address] Social History Tobacco Use Types Packs/Day Years [...] Sign Reading Time Taken Comments Blood Pressure 120/62 10/25/2010 1446 EST Pulse 104 10/25/2010 1446 EST R Temperature 37.1 ??C (98.7 ??F) 10/25/2010 1446 EST Respiratory Rate 20 10/25/2010 1446 EST Oxygen Saturation - - Inhaled Oxygen Concentration - - Weight 126.6 kg (279 lb) 10/25/2010 1446 EST Height - - Body Mass Index 42.42 10/24/2010 1448 EST documented in this encounter Ordered Prescriptions Prescription Sig Dispensed Refills Start Date End Date sertraline (ZOLOFT) 50 mg Take 1 Tab by mouth 30 Tab 2 1 12/26/2009 11/22/2010 tablet daily. documented in this encounter Progress Notes Carlos Jason MD - 10/27/2010 0937 EST Attestation statement: I saw and examined the patient with the resident/fellow. I agree with the findings and plan of care documented in the resident's/fellow's note. He is well managed by numerous providers for his health and behavior. We will help moniitor and manage his health behavior changes Bi Guardado MD - 10/25/20102005 EST [facility] Office visit - 10/25/2010 Subjective: Patient ID: Zeeshan Gonzalez Jr. is an 20 y.o. male. Chief Complaint Patient presents with ??? Depression ??? Insomnia Mr. Gonzalez is an 20 yo man with PMH of obesity, metabolic syndrome, depression (with suicide attempt at age 15), and smoking history who presents today for follow up regarding his depression. The patient usually sees his primary physician, Dr. Dolly Ramos. He reports having a anger attack yesterday while riding in the car with his mother (who is present with him in the office today). He states he became very angry for unclear reasons and began punching the car roof, yelling, and then stormed outside of the car once his mother pulled over. When asked what bothers him, the patient states he is tired of always being blamed for things that go wrong in the family. He is also having worsened depression lately due to his girlfriend breaking up with him recently; he refuses to talk about this at today's appointment. He is interested in changing anti-depressant medications as he states that he has been onEffexor for years and it does not work anymore. When asked about what he feels would improve his depression, he states that losing weight would definitely improve his symptoms. His obesity hurts his self-esteem. Depression is review further below. Also of note, the patient reports bumping his left eye while upset and punching the car ceiling. His right lower, inner eye-lid is mildly tender since. Depression The primary symptoms include dysphoric mood. The current episode started more than 1 month ago. Thisis a chronic problem. The onset of the illness is precipitated by a stressful event and emotional stress. Additional symptoms of the illness include insomnia, unexpected weight change and agitation. He admits to suicidal ideas (long history of suicidal ideations). He does not have a plan (strongly denies active planing forsuicide attempt) to commit suicide. He does not contemplate harming himself. He has already injured self. Risk factors that are present for mental illness include a history of mental illness, substanceabuse, a history of suicide attempts and a family history of mental illness (attempted suicide by hanging at 15 yrs of age). Insomnia This is a chronic problem. The problem occurs daily. The problem has been unchanged. He has taken Ambien 10 mg each night for over 2 years and feels it no longer helps him sleep. He hasdifficulties both falling asleep and staying asleep. Patient Active Problem List Diagnoses Code ??? Other activity E029.9 ??? Obesity 278.00M ??? Acanthosis nigricans 701.2A ??? Depression 311L ??? Hypertension 401.9AJ ??? Asthma 493.90AE ??? Metabolic syndrome 277.7C Current outpatient prescriptions ordered prior to encounter Medication Sig Dispense Refill ??? Melatonin 3 mg Tab Take 9 mg by mouth at bedtime. ??? zolpidem (AMBIEN) 10 mg tablet Take 1 Tab by mouth at bedtime as needed for Sleep. 30 Tab 0 ??? ursodiol (ACTIGALL) 300 mg capsule Take 300 mg by mouth 2 times daily. ??? venlafaxine (EFFEXOR-XR) 150 mg XR capsule Take 1 Cap by mouth daily. 30 Cap 3 ??? losartan (COZAAR) 25 mg tablet Take 25 mg by mouth daily. ??? metformin (GLUCOPHAGE-XR) 500 mg XR tablet Take 1 Tab by mouth daily. 90 Tab 2 ??? loratadine (CLARITIN) 10 mg tablet Take 1 Tab by mouth daily. 30 Tab 2 ??? tocopheryl acetate (VITAMIN E) 200 unit capsule Take 400 Units by mouth daily. Allergies Allergen Reactions ??? Pollen Extracts ??? Pineapple ??? Cats Social History Works at [employer]. Smokes cigarettes and marijuana daily. Occasional alcohol use (once per month). Denies any other illicit drug use. Review of Systems Constitutional: Positive for unexpected weight change. Negative for weight loss. Psychiatric/Behavioral: Positive for dysphoric mood and agitation. The patient has insomnia. - See HPI Objective: BP 120/62 Pulse 104 Temp(Src) 37.1 ??C (98.7 ??F) (Tympanic) Resp 20 Wt 126.554 kg (279 lb) Physical Exam Constitutional: He is oriented to person, place, and time. He appears well- developed and well-nourished. Obese 20 yo male HENT: Head: Normocephalic. Right Ear: External ear normal. Medial aspect of left lower eye-lid with very minimal swelling and very minimal erythema overlying the area. Area is at distal margin of eyelid. No fluctuance or drainage appreciated. Eyes: Extraocular motions are normal. Pupils are equal, round, and reactive to light. Cardiovascular: Normal rate, regular rhythm and normal heart sounds. No murmur heard. Pulmonary/Chest: Effort normal. Neurological: He is alert and oriented to person, place, and time. Psychiatric: He has a normal mood and affect. His behavior is normal. Thought content normal. Smiling and giving jokes at times during visit (appropriate timing of jokes). Assessment: Mr. Gonzalez is an 20 yo man with multiple medical problems including obesity, metabolic syndrome, hypertension, smoking, and depression who presents to clinic today for depression follow up. His depression is currently not well controlled. He denies any suicidal plans, however he does have a long history of suicidal ideations. Insomnia is chronic and is likely due to or significantly worsened by depression. Plan: Zeeshan was seen today for depression and insomnia. Diagnoses and associated orders for this visit: Depression - Start Zoloft 50 mg daily. - Decrease Effexor to 150 mg daily x 1 week, then 75 mg daily x 1 week, then stop. - Follow up with therapist Rigo Lomeli tomorrow and every for weekly psychotherapy. - Patient has Crisis Hotline card to call for any suicidal thoughts or plan. - Start regular exercise plan with walking 3 times per week, sit ups, and only using stairs at work. - Strongly encouraged patient to discontinue marijuana use, however he reports he is not ready at this time and refuses. - Diet as below. Obesity - Exercise plan as above. - Refer patient to Nutrition Office at [place] for nutritional counseling. Insomnia - Depression treatment as above. - Regular exercise program. - Continue Ambien 10 mg qhs for now. - Further changes pending adequate control of depression. Follow up appointment with Dr. Dolly Ramos in 2-3 weeks. Patient discussed with Dr. Carlos Jason. Bi Barlow MD, PGY2 documented in this encounter Plan of Treatment Scheduled Referrals Name Type Priority Associated Diagnoses Order S chedule AMB CONSULT Outpatient Referral Routine Obesity Ordered: NUTRITION Metabolic syndrome 0 documented as of this encounter Visit Diagnoses Diagnosis Depression Depressive disorder, not elsewhere class ified Obesity Obesity, unspecified Metabolic syndrome Dysmetabolic Syndrome X documented in this encounter Discontinued Medications Medication Sig Discontinue Reason Start Date End Date Melatonin 3 mg Tab Take 2 Tabs by Dose adjustment 03/16/201006/2010 mouth at bedtime. venlafaxine (EFFEXOR-XR) Take 1 Cap by mouth 0 10/25/2010 75 mg XR daily. capsuleIndications: Depression documented as of this encounter Care Teams Flag Maker Relationship Specialty Start Date End Date Jazzy Ramos MD PCP - General 10/19/10 12/27/[address] [place] [address] documented as of this encounter
--- OUTSIDE RECORDS SUMMARY | 2022-06-05 06:52 | XMS_ITS | Encounter Summary ---
:1990 Author Organization [facility] Address [address] [place] [address] Care Team Providers Name Role Phone Rajani Garrett Primary Care Provider Unavailable Reason for Visit Reason Onset Date Comments Medications Refill 03/16/2010 RX Encounter Details Date Type Department Care Team Description 03/16/2010 Refill [facility] Rajani Garrett Medications Refill (RX) Pediatric Primary Care - [address] [address] Social History Tobacco Use Types Packs/Day Years Used Date Never Assessed Sex Assigned at Date Recorded Male 09/05/2020 10:43 EDT documented as of this encounter Ordered Prescriptions Prescription Sig Dispensed Refills Start Date End Date Melatonin 3 mg Tab Take 2 Tabs by mouth at 60 Tab 3 02/1710/25/2010 bedtime. documented in this encounter Miscellaneous Notes Telephone Encounter - Tunde Madera RN - 03/16/2010 1427 EDT Ov pending 03/23/2010. Last refill 01/17/10 Tunde Madera, KEANU elephone Encounter - Reshma Licea - 03/16/2010 1035 EDT CALL MELATONINE RX REFILL TO [facility] documented in this encounter Plan of Treatment Not on filedocumented as of this encounter Visit Diagnoses Not on filedocumented in this encounter Discontinued Medications Medication Sig Discontinue Reason Start Date End Date Melatonin 3 mg Tab Take 6 mg by mouth at Reorder 03/16/2010 bedtime. documented as of this encounter Care Teams Lumber Planer Relationship Specialty Start Date End Date Rajani Garrett PCP - General 03/10/09 06/15/10 documented as of this encounter
--- OUTSIDE RECORDS SUMMARY | 2022-06-05 06:52 | XMS_ITS | Encounter Summary ---
:1990 Author Organization [facility] Address [address] [place] [address] Care Team Providers Name Role Phone Rajani Garrett Primary Care Provider Unavailable Encounter Details Date Type Department Care Team Description 01/18/2010 Abstract Used for ABSTRACTING Data Rajani Garrett [phone] Social History Tobacco Use Types Packs/Day Years Used Date Never Assessed Sex Assigned at Date Recorded Male 09/05/2020 10:43 EDT documented as of this encounter Plan of Treatment Not on filedocumented as of this encounter Visit Diagnoses Not on filedocumented in this encounter Care Teams Summer Associate Relationship Specialty Start Date End Date Rajani Garrett PCP - General 03/10/09 06/15/10 documented as of this encounter
--- OUTSIDE RECORDS SUMMARY | 2022-06-05 06:52 | XMS_ITS | Encounter Summary ---
:1990 Author Organization [facility] Address [address] [place] [address] Care Team Providers Name Role Phone Jazzy Ramos MD Primary Care Provider [phone] Encounter Details Date Type Department Care Team Description 01/24/2011 Results Only Imaging [facility] Job Reardon Adult Primary Care - Loly Rodriguez [address] [address] [place] [phone] (Wo rk) Social History Tobacco Use Types [...] Name Priority Date/Time Associated Diagnosis Comme nts CT ABDOMEN (LUNG 01/31/2011 14:56 Results for this BASES TO ILIAC EDT procedure are in CREST) W CONTRAST the result s section. documented in this encounter Results CT ABDOMEN W CONTRAST (01/31/2011 14:56 EDT) Anatomical Region Laterality Modality Other Specimen Narrative [facility] - 01/31/2011 16:[address] ABDOMEN W/CONTRAST ??Jan 31, 2011 02: 56:00 PM Clinical History/Comments: 787.01-NAUSEA \T\ VOMITING-I9 chronic nausea and vomiting x 4 months, persiste nt RLL PNA and RUQ abdominal pain Comparison: 02/23/2006. Technique: Following the ministration of oral and IV contrast, axial CT images of the abdomen were performed from the lung bases through the iliac crests. Coronal reformats were performed. Findings: Evaluation of the right lung b ase demonstrates some groundglass nodular opacities in the rig ht lower lobe which could be reflective of resolving pneumonia. Bronc hial wall thickening is noted in this area. There is scarring in the l eft lung base. There are no pleural effusions. On the prior CT, there was significant f atty infiltration of the liver. On today's CT scan I no longer ap preciate significant fatty infiltration. There are no focal liver a bnormalities. The spleen, gallbladder, and pancreas are normal. Th e adrenal glands are normal. The kidneys enhance symmetrically. Unfor tunately, there is respiratory motion artifact degrading th is exam. There is an apparent wall thickening of loops of proximal jej unum in the left upper quadrant. This could be related to the c ombination of underdistention and respiratory motion. True bowel wall thickening is not excluded. Again identified are multiple prominent mesenteric lymph nodes which do not appear changed since 2005. There is a focus of accessory splenic tissue. Sandra hepatis lymph node s are visualized, which are nonpathologically enlarged. There is no evidence of obstruction on this examination. There is no free fluid or free air. The visualized, unopacified colon appears grossly unrema rkable. Evaluation of the bony structures demonstrates no obvious abnormality. Impression: 1. Patchy groundglass nodular opacities are faintly visualized in the right lung base, which could reflect are as of resolving pneumonia given the clinical history. ??Please see the report from the chest CT. 2. Scarring in the left lung base. 3. Perceived wall thickening of proximal jejunum could be related to motion artifact in combination with unde rdistention. ??There are many loops of small bowel which are either un derdistended with contrast or unopacified. ??An upper GI and small bow el follow through is recommended for further evaluation given the chronicity of symptoms. Procedure Note 01/31/2011 CT ABDOMEN W/CONTRAST Jan 31, 2011 02:56 :00 PM Clinical History/Comments: 787.01-NAUSEA \T\ VOMITING-I9 chronic nausea and vomiting x 4 months, persiste nt RLL PNA and RUQ abdominal pain Comparison: 02/23/2006. Technique: Following the ministration of oral and IV contrast, axial CT images of the abdomen were performed from the lung bases through the iliac crests. Coronal reformats were performed. Findings: Evaluation of the right lung b ase demonstrates some groundglass nodular opacities in the rig ht lower lobe which could be reflective of resolving pneumonia. Bronc hial wall thickening is noted in this area. There is scarring in the l eft lung base. There are no pleural effusions. On the prior CT, there was significant f atty infiltration of the liver. On today's CT scan I no longer ap preciate significant fatty infiltration. There are no focal liver a bnormalities. The spleen, gallbladder, and pancreas are normal. Th e adrenal glands are normal. The kidneys enhance symmetrically. Unfor tunately, there is respiratory motion artifact degrading th is exam. There is an apparent wall thickening of loops of proximal jej unum in the left upper quadrant. This could be related to the c ombination of underdistention and respiratory motion. True bowel wall thickening is not excluded. Again identified are multiple prominent mesenteric lymph nodes which do not appear changed since 2005. There is a focus of accessory splenic tissue. Sandra hepatis lymph node s are visualized, which are nonpathologically enlarged. There is no evidence of obstruction on this examination. There is no free fluid or free air. The visualized, unopacified colon appears grossly unrema rkable. Evaluation of the bony structures demonstrates no obvious abnormality. Impression: 1. Patchy groundglass nodular opacities are faintly visualized in the right lung base, which could reflect are as of resolving pneumonia given the clinical history. Please see t he report from the chest CT. 2. Scarring in the left lung base. 3. Perceived wall thickening of proximal jejunum could be related to motion artifact in combination with unde rdistention. There are many loops of small bowel which are either un derdistended with contrast or unopacified. An upper GI and small bowel follow through is recommended for further evaluation given the chronicity of symptoms. Performing Organization Address City/State/ZIP Code Phon e Number [facility] documented in this encounter Visit Diagnoses Not on filedocumented in this encounter Care Teams Senior Online Marketing Manager Relationship Specialty Start Date End Date Jazzy Ramos MD PCP - General 01/19/11 01/28/[address] [place] [address] documented as of this encounter
--- OUTSIDE RECORDS SUMMARY | 2022-06-05 06:52 | XMS_ITS | Encounter Summary ---
:1990 Author Organization [facility] Address [address] [place] [address] Care Team Providers Name Role Phone Jazzy Ramos MD Primary Care Provider [phone] Reason for Visit Reason Comments Emesis 3 weeks Cough Encounter Details Date Type Department Care Team Description 01/23/2011 Office Visit [facility] Unknown, Prov MD raghavendra Nausea & vomiting; Adult Primary Care - Job Reardon MD 1 [facility] [address] [place] [address] Anorexia; [place] Db Arechiga MD [employer] [address] [place], [place] [id number] Cough [address] [place], [place] [address] Social History Tobacco Use Types Packs/Day Years [...] Sign Reading Time Taken Comments Blood Pressure 110/70 01/23/2011 1504 EST Pulse 92 01/23/2011 1504 EST reg Temperature 37 ??C (98.6 ??F) 01/23/2011 1504 EST Respiratory Rate 16 01/23/2011 1504 EST Oxygen Saturation - - Inhaled Oxygen Concentration - - Weight 117.5 kg (259 lb) 01/23/2011 1504 EST without sh oes Height - - Body Mass Index 39.38 01/19/2011 1937 EST documented in this encounter Patient Instructions Patient InstructionsDb Arechiga - 01/23/2011 15:48 EST Please go for CT chest and abdomen Please use Zofran as needed for nausea Go for additional blood work Discontinue Metformin documented in this encounter Ordered Prescriptions Prescription Sig Dispensed Refills Start Date End Date albuterol (PROVENTIL HFA, Inhale 2 Puffs as 1 Inhaler 11 06/201103/18/2012 VENTOLIN HFA) 90 directed every 6 mcg/Actuation hours as needed for inhalerIndications: Cough Wheezing. fluticasone (FLOVENT) 110 Inhale 2 Puffs as 1 Inhaler 2 06/201110/10/2011 mcg/Actuation directed 2 times inhalerIndications: Cough daily. ondansetron (ZOFRAN) 4 mg Take 1 Tab by mouth 30 Tab 1 0 01/23/2011 10/10/2011 tabletIndications: Nausea every 8 hours as & vomiting needed for Nausea. documented in this encounter Progress Notes Db Arechiga - 01/23/2011 1558 EST Subjective: Patient ID: Kasie Llamas Jr. is an 20 y.o. male. Chief Complaint Patient presents with ??? Emesis 3 weeks ??? Cough HPI 20 year old male with past medical history of hypertension, controlled on Cozaar, metabolic syndromeon Metformin, obesity, depression who presents with a chief complaint of nausea, vomiting, cough. Patient reports progressive nausea and vomiting that began September 2010. He was seen in [facility] in December for hematemesis, anorexia, and cough. His hematemesis was felt to be secondary to a Dia weisstear. He was felt to have a URI and was started on azithromycin. CXR at the time was concerning for atelectasis versus early infiltrate. Blood work was ordered for his anorexia but was not done at the time. He continued to have nausea, vomiting daily. He reports decreased appetite and weight loss of approximately 20 pounds since September. Chart review reveals a weight loss 16 pounds. He reports fever to as high as 101. He reports diffuse abdominal pain. Reports recent and occasional diarrhea. He reports productive cough and shortness of breath, though he has asthma. Denies sick contacts. He has not started any new medications. He is currently sexually active with women. He denies history of STDs. He reports being tested for HIV approximately 8 months prior. He denies dysuria, genital ulcers or discharge. He was seen in [facility] ED on 01/19/10. Repeat CXR was done which revealed RLL pneumonia. Bloodwork reveals a new normocytic anemia and normal LFTs. He was started on Doxycycline which he continues to take. Patient Active Problem List Diagnoses Code ??? Other activity E029.9 ??? Obesity 278.00M ??? Acanthosis nigricans 701.2A ??? Depression 311L ??? Hypertension 401.9AJ ??? Asthma 493.90AE ??? Metabolic syndrome 277.7C Past Medical History Diagnosis Date ??? Hypertension ??? Asthma ??? Chicken pox As a child ??? CABRALES (nonalcoholic steatohepatitis) ??? Glucose intolerance (impaired glucose tolerance) ??? Depression Current outpatient prescriptions ordered prior to encounter Medication Sig Dispense Refill ??? doxycycline (VIBRA-TABS) 100 mg tablet Take 1 Tab by mouth 2 times daily for 7 days. 14 Tab 0 ??? zolpidem (AMBIEN) 10 mg tablet Take 1 Tab by mouth at bedtime as needed for Sleep. 30 Tab 0 ??? sertraline (ZOLOFT) 100 mg [...] Extracts ??? Pineapple ??? Cats Social History Substance Use Topics ??? Smoking status: Current Everyday Smoker -- 0.5 packs/day for 2 years Types: Cigarettes ??? Smokeless tobacco: Never Used Comment: 10/20 down to 1 pack/day ??? Alcohol Use: Yes occasionally ROS - See HPI Objective: BP 110/70 Pulse 92 Temp(Src) 37 ??C (98.6 ??F) (Tympanic) Resp 16 Wt 117.482 kg (259 lb) Physical Exam Constitutional: He is oriented to person, place, and time. He appears well- developed and well-nourished. No distress. obese HENT: Head: Normocephalic and atraumatic. Right Ear: External ear normal. Left Ear: External ear normal. Mouth/Throat: Oropharynx is clear and moist. No oropharyngeal exudate. Eyes: Conjunctivae and extraocular motions are normal. Pupils are equal, round, and reactive to light. Bilateral scleral hemorrhages Neck: Normal range of motion. Neck supple. Cardiovascular: Normal rate, regular rhythm and normal heart sounds. No murmur heard. Pulmonary/Chest: Effort normal. scattered wheezing. Coarse breath sounds at LL base Abdominal: Soft. Bowel sounds are normal. Tenderness is present. Tender to light palpation in RUQ. Rectal exam: pt refused Musculoskeletal: Normal range of motion. Lymphadenopathy: He has no cervical adenopathy. Neurological: He is alert and oriented to person, place, and time. Skin: Skin is warm and dry. No rash noted. Laboratory: Results for KASIE LLAMAS Anabelle SAENZ ( ) as of 01/28/2011 19:38 Ref. Range 01/19/2011 22:09 BUN Latest Range: 8-21 mg/dl 11 Creatinine Latest Range: 0.6-1.2 mg/dl 0.90 ALT Latest Range: 0-45 U/L 57 GFR, Calculated No range found >60 Glucose, Serum Latest Range: 70-100 mg/dl 84 Total Protein Latest Range: 6.3-8.6 g/dl 7.2 Albumin Latest Range: 3.0-5.5 g/dl 4.4 Total Alkaline Phosphatase Latest Range: 65-260 U/L 72 AST Latest Range: 15-46 U/L 30 Bilirubin, Total Latest Range: 0.2-1.3 mg/dl 0.5 Conjugated Bilirubin Latest Range: 0.0-0.3 mg/dl 0.0 Unconjugated Bilirubin Latest Range: 0.1-1.1 mg/dl 0.5 Results for KASIE LLAMAS Anabelle SAENZ ( ) as of 01/28/2011 19:38 Ref. Range 01/19/2011 22:09 WBC Latest Range: 4.6-11.2 K/cmm 7.31 RBC Latest Range: 4.50-5.30 M/cmm 4.40 Hemoglobin Latest Range: 13.0-16.0 gm/dl 13.5 (L) HCT Latest Range: 37.0-49.0 % 38.8 (L) MCV Latest Range: 78-98 fl 88 MCH No range found 30.8 MCHC No range found 34.9 PLT Latest Range: 156-312 K/cmm 178 CXR 01/19/11: Possible right lower lobe pneumonia Assessment: 20 year old male with history of hypertension, controlled on Cozaar, metabolic syndrome on Metformin, obesity who presents with a chief complaint of nausea, vomiting, cough. Patient has been having persistent nausea and vomiting for approximately 4 months. He continues to complain of cough and shortness of breath, but has a history of asthma. Of note, he has had a 16 pound unintentional weight loss since the onset of symptoms. He is currently being treated for possible RLL pneumonia which can account for some of his symptoms. Differential also includes pneumonia (2/2 mycoplasma, legionella), gastritis, cholecystitis. Given the chronicity of his symptoms, would also consider systemic etiologies, i.e. malignancy, HIV. Plan: Nausea & vomiting- LFTs within normal limits four days prior - CT abdomen - ondansetron (ZOFRAN) 4 mg tablet; Take 1 Tab by mouth every 8 hours as needed for Nausea. - Basic Metabolic Panel; Future - Prealbumin; Standing - HIV Antibody; Future - Prealbumin - Discontinue Metformin as may be contributing to GI upset Anorexia - Prealbumin; Standing - HIV Antibody; Future - Prealbumin Cough, ? PNA - fluticasone (FLOVENT) 110 mcg/Actuation inhaler; Inhale 2 Puffs as directed 2 times daily. - albuterol (PROVENTIL HFA, VENTOLIN HFA) 90 mcg/Actuation inhaler; Inhale 2 Puffs as directed every6 hours as needed for Wheezing. - CT chest: patient with persistent opacity in RLL concerning for PNA - Urine legionella - Complete course of doxycycline Follow up with Dr. Ramos in 2 weeks. Db Arechiga MD Patient discussed with Dr. Reardon Attestation statement: I discussed the patient with the resident/fellow at the time of the visit. I agree with the findings and the plan of care documented in the resident's/fellow's note. documented in this encounter Plan of Treatment Not on filedocumented as of this encounter Procedures Procedure Name Priority Date/Time Associated Comments Diagnosis CT CHEST W CONTRAST 01/31/2011 14:55 Resu lts for this EDT procedure are i n the results section. PREALBUMIN Routine 01/23/2011 15:59 Nausea & vomiti ng Results for this EST Anorexia procedure are i n the results section. documented in this encounter Results CT CHEST W CONTRAST (01/31/2011 14:55 EDT) Anatomical Region Laterality Modality Other Specimen Narrative [facility] - 01/31/2011 18:[address] CHEST W/CONTRAST ??Jan 31, 2011 02:55 :00 PM Signs and Symptoms/Comments: ??787.01-NA USEA \T\ VOMITING-I9 chronic nausea and vomiting x 4 months, persiste nt RLL PNA and RUQ abdominal pain Technique: A single breath-hold helical CT acquisition was performed through the chest on a multidetector-row scanner with a reconstructed slice thickness of 3 mm and retrospectiv ilene reconstructed 0.9 mm thick sections with 0.45 mm overlapping intervals. ??The scans were obtained from the lung apices through th e bases during the intravenous administration of 87 cc of 3 70 mg% nonionic contrast injected at a rate of 2 cc/second. Scans were reviewed on a dedicated PACS workstation for analysis. Comparison: Accompanying CT abdomen on 0 01/31/2011. CT chest abdomen pelvis on 02/23/2006. Findings: The chest wall is normal. The heart and mediastinum are normal for age. No pathologically enlarged mediastinal o r hilar lymph nodes are present. The airways are mildly thickened. There are diffuse centrilobular groundglass and scattered tree-in-bud op acities in the posterior segment of the right lower lobe. Scatter ed regions of hypoattenuation throughout both lungs likely represent a ir-trapping. Thin linear scarring is present in both lung bases. No pleural disease is present. The osseous structures are normal for ag e. Please see accompanying CT abdomen for a dditional findings. Impression: 1. Diffuse centrilobular groundglass and scattered tree-in-bud opacities in the right lower lobe are bean spicious for infection. 2. Mild airway thickening with evidence of scattered air-trapping. 3. The remainder of the chest is normal for age. Please see accompanying CT abdomen for additional f indings. I have personally reviewed the images an d the above interpretation and agree with the findings. Procedure Note Jean Carlos Johnston MD - 01/31/2011 CT CHEST W/CONTRAST Jan 31, 2011 02:55:0 0 PM Signs and Symptoms/Comments: 787.01-NAUS EA \T\ VOMITING-I9 chronic nausea and vomiting x 4 months, persiste nt RLL PNA and RUQ abdominal pain Technique: A single breath-hold helical CT acquisition was performed through the chest on a multidetector-row scanner with a reconstructed slice thickness of 3 mm and retrospectiv ilene reconstructed 0.9 mm thick sections with 0.45 mm overlapping intervals. The scans were obtained from the lung apices through th e bases during the intravenous administration of 87 cc of 3 70 mg% nonionic contrast injected at a rate of 2 cc/second. Scans were reviewed on a dedicated PACS workstation for analysis. Comparison: Accompanying CT abdomen on 0 01/31/2011. CT chest abdomen pelvis on 02/23/2006. Findings: The chest wall is normal. The heart and mediastinum are normal for age. No pathologically enlarged mediastinal o r hilar lymph nodes are present. The airways are mildly thickened. There are diffuse centrilobular groundglass and scattered tree-in-bud op acities in the posterior segment of the right lower lobe. Scatter ed regions of hypoattenuation throughout both lungs likely represent a ir-trapping. Thin linear scarring is present in both lung bases. No pleural disease is present. The osseous structures are normal for ag e. Please see accompanying CT abdomen for a dditional findings. Impression: 1. Diffuse centrilobular groundglass and scattered tree-in-bud opacities in the right lower lobe are bean spicious for infection. 2. Mild airway thickening with evidence of scattered air-trapping. 3. The remainder of the chest is normal for age. Please see accompanying CT abdomen for additional f indings. I have personally reviewed the images an d the above interpretation and agree with the findings. Performing Organization Address City/State/ZIP Code Phon e Number [facility] HIV ANTIBODY (01/23/2011 15:59 EST) HIV 1/2 Antibody Negative Reference [facility] Range: Negative Specimen Blood specimen (specimen) Performing Organization Address City/State/ZIP Code Phon e Number [facility] [address] [place] [address] SERVICES [facility] [address] [place] [address] PREALBUMIN (01/23/2011 15:59 EST) Pathologist Sig nature Prealbumin 29 18 - 38 mg/dl [facility] Specimen Blood specimen (specimen) Performing Organization Address City/State/ZIP Code Phon e Number [facility] [address] [place] [address] SERVICES [facility] [address] [place] [address] documented in this encounter Visit Diagnoses Diagnosis Nausea & vomiting Nausea with vomiting Anorexia Cough documented in this encounter Discontinued Medications Medication Sig Discontinue Reason Start Date End Date azithromycin (ZITHROMAX) Take by mouth daily. Therapy completed 01/23/2011 250 mg Take 2 tablets (500 tabletIndications: URI mg) on Day 1, (upper respiratory followed by 1 tablet infection) (250 mg) once daily on Days 2 through 5. fluticasone (FLOVENT) Inhale 2 Puffs as Reorder 11/17/2010 0 01/23/2011 110 mcg/Actuation directed 2 times inhalerIndications: daily. Cough albuterol (PROVENTIL Inhale 2 Puffs as Reorder 11/17/2010 HFA, VENTOLIN HFA) 90 directed every 6 mcg/Actuation hours as needed for inhalerIndications: Wheezing. Cough documented as of this encounter Orders Lab Orders Without Results Count Last Ordered Date Fir st Ordered Date BASIC METABOLIC PANEL 1 01/23/2011 documented in this encounter Care Teams Power Plant Operators Supervisor Relationship Specialty Start Date End Date Jazzy Ramos MD PCP - General 01/19/11 01/28/[address] [place] [address] documented as of this encounter
--- OUTSIDE RECORDS SUMMARY | 2022-06-05 06:52 | XMS_ITS | Encounter Summary ---
:1990 Author Organization [facility] Address [address] [place] [address] Care Team Providers Name Role Phone Ilan Kelly MD Primary Care Provider Encounter Details Date Type Department Care Team Description 01/31/2011 Hospital Encounter [facility] MD Michael [address] [place] [address] [address] [phone] [address] [place] [phone] (Wo rk) Social History Tobacco Use Types [...] Code Departure Means Destination Home or Self Nursing Home documented in this encounter Plan of Treatment Not on filedocumented as of this encounter Visit Diagnoses Not on filedocumented in this encounter Care Teams Superintendent Cemetery Relationship Specialty Start Date End Date Ilan Kelly MD PCP - General 01/29/11 03/18/13 1 [facility] [address] [place] [address] documented as of this encounter
--- OUTSIDE RECORDS SUMMARY | 2022-06-05 06:52 | XMS_ITS | Encounter Summary ---
:1990 Author Organization [facility] Address [address] [place] [address] Care Team Providers Name Role Phone Ilan Kelly MD Primary Care Provider Reason for Visit Reason Comments Follow-up med check. needs refills. sw itching doctors soon Encounter Details Date Type Department Care Team Description 07/20/2010 Office Visit [facility] Rajani Garrettio n (Primary Dx) [facility] Pediatric Primary Care [address] [id number] Social History Tobacco Use Types Packs/Day Years Used Date Never Assessed Sex Assigned at Date Recorded Male 09/05/2020 10:43 EDT documented as of this encounter Last Filed Vital Signs Vital Sign Reading Time Taken Comments Blood Pressure 130/82 07/20/2010 1136 EDT Pulse - - Temperature - - Respiratory Rate - - Oxygen Saturation - - Inhaled Oxygen Concentration - - Weight 122.5 kg (270 lb) 07/20/2010 1136 EDT Height - - Body Mass Index - - documented in this encounter Progress Notes Rajani Garrett, PNP - 07/20/2010 1209 EDT Subjective: Patient ID: Zeeshan Gonzalez Jr. is an 20 y.o. male. Chief Complaint Patient presents with ??? Follow-up med check. needs refills. switching doctors soon HPI Depression-Suraj has not been seen at [facility]. Missed last appt. Next booked for 09/04. No change in any other meds. Needs refill of Effexor. Feels things going well. Looking for job. Denies any self-injurious behavior, suicidal ideation. Patient Active Problem List Diagnoses Code ??? RAD (reactive airway disease) 493.90AV ??? Other activity E029.9 ??? Obesity 278.00M ??? Acanthosis nigricans 701.2A ??? Depression 311L ??? Hypertension 401.9AJ Past Medical History Diagnosis Date ??? Hypertension ??? Diabetes mellitus ??? Asthma ??? Fatty liver ??? Chicken pox As a child Current outpatient prescriptions ordered prior to encounter Medication Sig Dispense Refill ??? venlafaxine (EFFEXOR-XR) 75 mg XR capsule Take 1 Cap by mouth daily. 30 Cap 0 ??? venlafaxine (EFFEXOR-XR) 150 mg XR capsule Take 1 Cap by mouth daily. 30 Cap 0 ??? metformin (GLUCOPHAGE-XR) 500 mg XR tablet Take 1 Tab by mouth daily. 30 Tab 3 ??? Melatonin 3 mg Tab Take 2 Tabs by mouth at bedtime. 60 Tab 3 ??? zolpidem (AMBIEN) 10 mg tablet Take 1 Tab by mouth at bedtime as needed for Sleep. 30 Tab 0 ??? clonidine (CATAPRES) 0.1 mg tablet Take 0.1 mg by mouth daily. ??? UNABLE TO FIND 10 mg. Med Name: Doxepin HCL ??? UNABLE TO FIND Med Name: Blood pressure med ??? venlafaxine (EFFEXOR-XR) 37.5 mg XR capsule Take 225 mg by mouth daily. ??? ursodiol (ACTIGALL) 300 mg capsule Take 300 mg by mouth 2 times daily. ??? tocopheryl acetate (VITAMIN E) 200 unit capsule Take 400 Units by mouth daily. ??? lisinopril (PRINIVIL, ZESTRIL) 5 mg tablet Take 5 mg by mouth daily. ??? loratadine (CLARITIN) 10 mg tablet Take 10 mg by mouth daily. Allergies Allergen Reactions ??? Pollen Extracts ??? Pineapple Social History Substance Use Topics ??? Tobacco Use: ??? Alcohol Use: ROS - See HPI Objective: BP 130/82 Wt 122.471 kg (270 lb) Physical Exam Constitutional: He appears well-developed. Cardiovascular: Normal rate, regular rhythm and normal heart sounds. Assessment: Depression, obesity Plan: Zeeshan was seen today for follow-up. Diagnoses and associated orders for this visit: Depression Will refill meds until he has his appointment at [facility]. Discussed with Suraj his medical issues and how [facility] would be a more appropriate site for him. I informed Suraj we will not renew any meds if he misses his next appointment. documented in this encounter Plan of Treatment Not on filedocumented as of this encounter Visit Diagnoses Diagnosis Depression - Primary Depressive disorder, not elsewhere class ified documented in this encounter Discontinued Medications Medication Sig Discontinue Reason Start Date End Date zolpidem (AMBIEN) 5 mg Take 2 Tabs by 05/15/201012/2009 tablet mouth at bedtime. documented as of this encounter Care Teams Music Theory Professor Relationship Specialty Start Date End Date Ilan Kelly MD PCP - General 06/16/10 10/18/10 1 [facility] Level [address] [place] [address] documented as of this encounter
--- OUTSIDE RECORDS SUMMARY | 2022-06-05 06:52 | XMS_ITS | Encounter Summary ---
:1990 Author Organization [facility] Address [address] [place] [address] Care Team Providers Name Role Phone None, Provider Primary Care Provider Unavailable Reason for Visit Reason Onset Date Comments Hematemesis 12/28/2010 Encounter Details Date Type Department Care Team Description 12/28/2010 Telephone [facility] Adult Rajani Bolivar CDE Hematemesis Primary Care - Gabino lantigua [id number] [place] [address] [phone] (Wo rk) Social History Tobacco Use [...] encounter Miscellaneous Notes Telephone Encounter - Rajani Boliavr RN - 12/28/2010 1006 EST Patients mother is calling to report that he has been sick with a virus but was feeling better yesterday. This morning however, he vomited and it was primarily blood that came up. She was instructed totake him to the ER for evaluation. documented in this encounter Plan of Treatment Not on filedocumented as of this encounter Visit Diagnoses Not on filedocumented in this encounter Care Teams Referral Specialist Relationship Specialty Start Date End Date None, Provider PCP - General 12/28/10 01/18/11 documented as of this encounter
--- OUTSIDE RECORDS SUMMARY | 2022-06-05 06:52 | XMS_ITS | Encounter Summary ---
:1990 Author Organization [facility] Address [address] [place] [address] Care Team Providers Name Role Phone Rajani Garrett Primary Care Provider Unavailable Encounter Details Date Type Department Care Team Description 03/15/2010 Abstract Used for ABSTRACTING Data Rajani Garrett [phone] Social History Tobacco Use Types Packs/Day Years Used Date Never Assessed Sex Assigned at Date Recorded Male 09/05/2020 10:43 EDT documented as of this encounter Plan of Treatment Not on filedocumented as of this encounter Visit Diagnoses Not on filedocumented in this encounter Care Teams Caustic Strength Inspector Relationship Specialty Start Date End Date Rajani Garrett PCP - General 03/10/09 06/15/10 documented as of this encounter
--- OUTSIDE RECORDS SUMMARY | 2022-06-05 06:52 | XMS_ITS | Encounter Summary ---
:1990 Author Organization [facility] Address [address] [place] [address] Care Team Providers Name Role Phone Ilan Kelly MD Primary Care Provider Reason for Visit Reason Onset Date Comments Medications Refill 07/24/2010 metaformin - 90 day supply Encounter Details Date Type Department Care Team Description 07/24/2010 [facility]ill [facility]stewardess second class (metaformin - 90 day Primary Care - [address] supply ) [place] [address] 1 [place] [address] Social History Tobacco Use Types Packs/Day Years Used Date Never Assessed Sex Assigned at Date Recorded Male 09/05/2020 10:43 EDT documented as of this encounter Ordered Prescriptions Prescription Sig Dispensed Refills Start Date End Date loratadine (CLARITIN) 10 mg Take 1 Tab by 30 Tab 2 07/2411/02/2010 tabletIndications: mouth daily. Environmental allergies documented in this encounter Miscellaneous Notes Telephone Encounter - Tor Pickard MD - 07/25/2010 1028 EDT Reviewed and approve refill. Tor Pickard MD elephone Encounter - Nikia Garcia - 07/24/2010 1010 EDT Last refill 09/26. documented in this encounter Plan of Treatment Not on filedocumented as of this encounter Visit Diagnoses Diagnosis Environmental allergies Other allergy, other than to medicinal a gents documented in this encounter Discontinued Medications Medication Sig Discontinue Reason Start Date End Date loratadine (CLARITIN) 10 Take 10 mg by mouth Reorder 07/24/2010 mg tablet daily. documented as of this encounter Care Teams Certified Dental Assistant Relationship Specialty Start Date End Date Ilan Kelly MD PCP - General 06/16/10 10/18/[address] [place] [address] [address] [place] [phone] documented as of this encounter
--- OUTSIDE RECORDS SUMMARY | 2022-06-05 06:52 | XMS_ITS | Encounter Summary ---
:1990 Author Organization [facility] Address [address] [place] [address] Care Team Providers Name Role Phone Ilan Kelly MD Primary Care Provider Reason for Visit Reason Onset Date Comments Medications Refill 08/10/2010 Encounter Details Date Type Department Care Team Description 08/10/2010 Refill [facility] Ilan Kelly MD Medications Refill Pediatric Primary Care - [address] [place] [address] Level [address] [place] [phone] (Wo rk) Social History Tobacco Use Types Packs/Day Years Used Date Current Every Day Smoker 1 Alcohol Use Standard Drinks/Week Comments No 0 (1 standard drink = 0.6 oz pure alcoho l) Sex Assigned at Date Recorded Male 09/05/2020 10:43 EDT documented as of this encounter Miscellaneous Notes Telephone Encounter - Rajani Garrett PNP - 08/10/2010 1451 EDT Zeeshan and family are aware that we will not refill any prescriptions. Was to make a new appt at [facility]. Please let mother know. elephone Encounter - Rajani Whately - 08/10/2010 1355 EDT Melatonin 3 mg Tab [[id number]] [facility] documented in this encounter Plan of Treatment Not on filedocumented as of this encounter Visit Diagnoses Diagnosis Sleep disturbances Sleep disturbance, unspecified documented in this encounter Care Teams Admissions Consultant Relationship Specialty Start Date End Date Ilan Kelly MD PCP - General 06/16/10 10/18/10 1 [facility] 1 [place] [address] documented as of this encounter
--- OUTSIDE RECORDS SUMMARY | 2022-06-05 06:52 | XMS_ITS | Encounter Summary ---
:1990 Author Organization [facility] Address [address] [place] [address] Care Team Providers Name Role Phone Ilan Kelly MD Primary Care Provider Jazzy Ramos MD Primary Care Provider [phone] Reason for Visit Reason Onset Date Comments Medications Refill 10/18/2010 Encounter Details Date Type Department Care Team Description 10/18/2010 Refill [facility] Adult Ilan Kelly MD Medications Refill Primary Care - [address] 1 [facility] Level [address] [place] [address] [place], [place] [phone] (Wo rk) Social History Tobacco Use [...] 1 Tab by mouth 30 Tab 0 11/200911/17/2010 tablet at bedtime as needed for Sleep. documented in this encounter Miscellaneous Notes Telephone Encounter - Lauren Mayer - 10/19/2010 1004 EST Zolpidem called into [facility]. documented in this encounter Plan of Treatment Not on filedocumented as of this encounter Visit Diagnoses Not on filedocumented in this encounter Discontinued Medications Medication Sig Discontinue Reason Start Date End Date zolpidem (AMBIEN) 10 mg Take 1 Tab by mouth Reorder 09/20/2010 10/18/2010 tablet at bedtime as needed for Sleep. documented as of this encounter Care Teams Retail Performance Specialist Relationship Specialty Start Date End Date Ilan Kelly MD PCP - General 06/16/10 10/18/10 1 [facility] 1 [place] [address] Jazzy Ramos MD PCP - General 10/19/10 12/27/[address] [place] [phone] documented as of this encounter
--- OUTSIDE RECORDS SUMMARY | 2022-06-05 06:52 | XMS_ITS | Encounter Summary ---
:[address] [facility] Address [address] [place] [address] Care Team Providers Name Role Phone Jazzy Ramos MD Primary Care Provider [phone] Reason for Visit Reason Comments Otalgia Bi Lat URI Encounter Details Date Type Department Care Team Description 12/05/2010 Office Visit [facility] Unknown, Prov MD raghavendra URI ([facility] Adult Primary Care - Carlos Jason MD respiratory [facility], MD Cailin [facility] [address] [place] [address] infection) (Primary [address]x) [place], [place] [address] Social History Tobacco Use Types Packs/Day Years [...] Sign Reading Time Taken Comments Blood Pressure 100/80 12/05/2010 1432 EST Pulse 112 12/05/2010 1432 EST Temperature 37.4 ??C (99.3 ??F) 12/05/2010 1432 EST Respiratory Rate 24 12/05/2010 1432 EST Oxygen Saturation - - Inhaled Oxygen Concentration - - Weight - - Height - - Body Mass Index - - documented in this encounter Ordered Prescriptions Prescription Sig Dispensed Refills Start Date End Date azithromycin (ZITHROMAX) Take by mouth daily. 6 Tab 0 0 12/05/2010 01/23/2011 250 mg tabletIndications: Take 2 tablets (500 URI (upper respiratory mg) on Day 1, infection) followed by 1 tablet (250 mg) once daily on Days 2 through 5. documented in this encounter Progress Notes Carlos Jason MD - 12/11/2010 1352 EST Attestation statement: I discussed the patient with the resident/fellow at the time of the visit. I agree with the findings and the plan of care documented in the resident's/fellow's note. Cailin Woodruff - 12/05/2010 1505 EST Subjective: Patient ID: Zeeshan Gonzalez Jr. is an 20 y.o. male. Chief Complaint Patient presents with ??? Otalgia Bi Lat ??? URI HPI This is an 20 yo gentleman who follow-up in clinic for URI symptoms. He was in clinic about 1.5 weeks ago and at that time he had some URI symptoms, he was told to use palliative treatment and come back to the clinic if his symptoms did not improve. He states that over the last week he has noticed a decrease in his hearing and has bilateral hear pain. He continues to have a productive cough, sinus pressure, fevers and chills. Patient Active Problem List Diagnoses Code ??? [...] to encounter Medication Sig Dispense Refill ??? sertraline (ZOLOFT) 100 mg tablet Take 1 Tab by mouth daily. 30 Tab 2 ??? zolpidem (AMBIEN) 10 mg tablet Take 1 Tab by mouth at bedtime as needed for Sleep. 30 Tab 0 ??? fluticasone (FLOVENT) 110 mcg/Actuation inhaler Inhale [...] Cats Social History Substance Use Topics ??? Tobacco Use: Yes -- 0.7 packs/day for 2 years 10/20 down to 1 pack/day ??? Alcohol Use: Yes occasionally Review of Systems Constitutional: Positive for fever, chills and malaise/fatigue. Negative for weight loss and diaphoresis. HENT: Positive for hearing loss, ear pain, congestion and sore throat. Negative for nosebleeds, neckpain, tinnitus and ear discharge. Eyes: Negative for blurred vision, pain and redness. Respiratory: Positive for cough, sputum production, shortness of breath and wheezing. Negative for hemoptysis and stridor. Cardiovascular: Negative for chest pain and palpitations. Gastrointestinal: Negative for heartburn, vomiting and abdominal pain. Genitourinary: Negative for dysuria, urgency and frequency. Musculoskeletal: Positive for myalgias. Negative for back pain and joint pain. Neurological: Positive for headaches. Negative for dizziness, tingling, sensory change, focal weakness and weakness. Psychiatric/Behavioral: Positive for depression. Negative for substance abuse. - See HPI Objective: BP 100/80 Pulse 112 Temp(Src) 37.4 ??C (99.3 ??F) (Tympanic) Resp 24 Physical Exam Constitutional: He appears well-developed and well-nourished. HENT: Right Ear: There is tenderness. A middle ear effusion is present. Decreased hearing is noted. Left Ear: There is tenderness. Tympanic membrane is injected. A middle ear effusion is present. Decreased hearing is noted. Mouth/Throat: Uvula is midline and mucous membranes are normal. Oropharyngeal exudate and posterior oropharyngeal edema present. Cardiovascular: Normal rate, regular rhythm and normal heart sounds. Pulmonary/Chest: Effort normal. He has wheezes. He has rales. Abdominal: Soft. Bowel sounds are normal. Musculoskeletal: Normal range of motion. Skin: Skin is warm and dry. Assessment: Zeeshan Gonzalez comes to clinic today for persistent URI symptoms and associated otalgia and tonsillar adenopathy. It is most likely that the patient initially had a viral infection and is now a superimposed bacterial infection. Plan: Zeeshan was seen today for otalgia and uri. Diagnoses and associated orders for this visit: Uri (upper respiratory infection) - azithromycin (ZITHROMAX) 250 mg tablet; Take by mouth daily. Take 2 tablets (500 mg) on Day 1, followed by 1 tablet (250 mg) once daily on Days 2 through 5. D/W Dr Dillardlectronically signed by Cailin Bautista at 12/05/2010 15:07 EST documented in this encounter Plan of Treatment Not on filedocumented as of this encounter Visit Diagnoses Diagnosis URI (upper respiratory infection) - Prim basilio Acute upper respiratory infections of un specified site documented in this encounter Care Teams Evaporator Helper Relationship Specialty Start Date End Date Jazzy Ramos MD PCP - General 10/19/10 12/27/[address] [place] [address] documented as of this encounter
--- OUTSIDE RECORDS SUMMARY | 2022-06-05 06:52 | XMS_ITS | Encounter Summary ---
:1990 Author Organization [facility] Address [address] [place] [address] Care Team Providers Name Role Phone Jazzy Ramos MD Primary Care Provider [phone] Reason for Visit Reason Comments Cough sweats, chills, loss of appe tite, nasal congestion, headache Encounter Details Date Type Department Care Team Description 11/17/2010 Office Visit [facility] Job Reardon (uppe r respiratory infection); Adult Primary Care - Loly Rodriguez Cough; [address] [place] [address] [place] [address] (Wo rk) Social History Tobacco [...] Reading Time Taken Comments Blood Pressure 134/82 11/17/2010 1516 EST Pulse 120 11/17/2010 1516 EST Temperature 38.2 ??C (100.8 ??F) 11/17/2010 1516 EST Respiratory Rate 18 11/17/2010 1516 EST Oxygen Saturation - - Inhaled Oxygen Concentration - - Weight 124.7 kg (275 lb) 11/17/2010 1516 EST with shoes Height - - Body Mass Index 41.81 10/24/2010 1448 EST documented in this encounter Patient Instructions Patient InstructionsMiJob cooper III, MD - 11/17/2010 15:31 EST Out of work 11/18-11/19/10 Use inhalers as directed documented in this encounter Ordered Prescriptions Prescription Sig Dispensed Refills Start Date End Date albuterol (PROVENTIL HFA, Inhale 2 Puffs as 1 Inhaler 11 01/23/2011 VENTOLIN HFA) 90 directed every 6 mcg/Actuation hours as needed for inhalerIndications: Cough Wheezing. fluticasone (FLOVENT) 110 Inhale 2 Puffs as 1 Inhaler 2 01/23/2011 mcg/Actuation directed 2 times inhalerIndications: Cough daily. zolpidem (AMBIEN) 10 mg Take 1 Tab by mouth 30 Tab 0 12/28/2010 tabletIndications: at bedtime as needed Insomnia for Sleep. documented in this encounter Progress Notes Nolan, Transport Driver - 12/01/2010 1751 EST Primary Care Internal Medicine [address] [place] [id number] PROGRESS/FOLLOWUP NOTE - 11/17/2010 CHIEF COMPLAINT: Cold. HISTORY OF PRESENT ILLNESS: The patient states that he has had a cough along with decreased appetite, sweats and fevers for the past week, also complains of some nasal congestion. He has a history of asthma and uses albuterol and Flovent on a regular basis. Does not feel like he has been wheezing. He used some [id number] cold remedies with minimal improvement. Overall, he feels the symptomsof worsened over the past week. REVIEW OF SYSTEMS: As above. No fevers, but has had chills and felt feverish, no documented temperature. OBJECTIVE: Constitutional: Vital signs: Blood pressure 134/82, pulse 120, respirations 18, temperature 38.2. General exam reveals a pleasant gentleman in no acute distress accompanied by his mother. ENT: Tympanic membranes amezquita, light reflex present. Mucous membranes moist, oropharynx mildly erythematous, no exudate. Sinuses nontender to palpation. Lymph: No cervical, submandibular or supraclavicular lymphadenopathy. Cardiovascular: Heart regular rate and rhythm, normal S1, S2, no murmur, rub or gallop. Respiratory:Good inspiratory effort, no dullness to percussion. Lungs clear to auscultation bilaterally. ASSESSMENT: URI and cough. Most likely viral in etiology. PLAN: 1. Continue Flovent and albuterol as prescribed. Refills given. CHIEF COMPLAINT: Insomnia. HISTORY OF PRESENT ILLNESS: The patient using Ambien 10 mg at bedtime p.r.n. and states he needs a refill on this today. ASSESSMENT: Insomnia with reasonable control on p.r.n. use of Ambien. PLAN: Ambien refilled. Electronically Signed by Job Reardon III, MD 12/01/2010 17:51 Job Reardon III, MD - Job Reardon III, MD - [facility] Job ID: Doc ID: [id number] Ext Doc ID: [id number] cc: Katarina Russo - 11/17/2010 1547 EST RX for Ambien called into [facility] Job Madrid III, MD - 11/17/2010 1539 EST Note dictated documented in this encounter Plan of Treatment Not on filedocumented as of this encounter Visit Diagnoses Diagnosis URI (upper respiratory infection) Acute upper respiratory infections of un specified site Cough Insomnia Insomnia, unspecified documented in this encounter Discontinued Medications Medication Sig Discontinue Reason Start Date End Date zolpidem (AMBIEN) 10 mg Take 1 Tab by mouth Reorder 10/18/2010 11/17/2010 tablet at bedtime as needed for Sleep. documented as of this encounter Care Teams Draw String Knotter Relationship Specialty Start Date End Date Jazzy Ramos MD PCP - General 10/19/10 12/27/[address] [place] [address] documented as of this encounter
--- OUTSIDE RECORDS SUMMARY | 2022-06-05 06:53 | XMS_ITS | Encounter Summary ---
:1990 Author Organization [facility] Address [address] [place] [address] Care Team Providers Name Role Phone Ilan Kelly MD Primary Care Provider Rajani Garrett Primary Care Provider Unavailable Jazzy Ramos MD Primary Care Provider [phone] None, Provider Primary Care Provider Unavailable Jazzy Ramos MD Primary Care Provider [phone] Ilan Kelly MD Primary Care Provider Sixto Sandoval MD Unavailable Wolf Bethea MD MPH Primary Care Provider [phone] Rigo Leonardo MD Primary Care Provider Unknown, Provider Primary Care Provider None, Provider Primary Care Provider Unavailable Madi Monique MD Primary Care Provider None, Provider Primary Care Provider Unavailable Michael Sandoval MD Primary Care Provider [phone] Cristin Elizabeth NP Primary Care Provider Unavailable Michael Sandoval MD Primary Care Provider [phone] None, Provider Primary Care Provider Unavailable Mary Kate Mcduffie MD Primary Care Provider Beverly Mix MD Primary Care Provider Rogelio Dominguez MD Primary Care Provider Segel, Ivan GLUED WOOD TESTER Primary Care Provider Encounter Details Date Type Department Care Team Description 02/25/2006 Hospital Encounter [facility] - Devin Jiang [place] 1 [facility] [address] [place] [address] RIA TUBBS [phone] (Wo rk) Social History Tobacco Use Types [...] / COVID-19? documented as of this encounter Plan of [...] (BMI) of 35.0 to 39.9 with comorbidity ([facility]) Note: Being Active Goal: Go for a walk 4 times per week for 20 minutes. The patient's confidence level, sources of support and barriers to change were assessed. Pertinent information is documented in the visit encounter. Counseling was provided to assess readiness, confidence and/or barriers to self-care. To learn more about your health please v isit: [facility] Wellness Resource documented as of this encounter Visit Diagnoses Not on filedocumented in this encounter Additional Health Concerns Infection Onset Date Last Indicated Resolved Time R/O COVID-19 08/18/2020 08/18/2020 08/23/2020 22:16 EDT R/O COVID-19 02/27/2021 02/27/2021 03/04/2021 22:15 EDT COVID-19 02/27/2021 02/27/2021 03/29/2021 22:15 EDT documented as of this encounter Care Teams Dried Yeast Supervisor Relationship Specialty Start Date End Date Ilan Kelly MD PCP - General 06/16/10 10/18/[address] [place] [phone] Rajani Garrett PCP - General 03/10/09 [facility] 10/19/10 12/27/[address] [place] [address] None, Provider PCP - General 12/28/10 01/18/11 Jazzy Ramos MD PCP - General 01/19/11 01/28/[address] [place] [address] Ilan Kelly MD PCP - General 01/29/11 03/18/[address] [place] [phone] Sixto Sandoval MD PCP - Alternate 01/05/13 12/25/[address] [place] [phone] Wolf Bethea MD PCP - General 03/19/1305/[address] [place] [phone] Rigo Leonardo MD PCP - General 06/04/14 09/12/[address] [place] [phone] Unknown, Provider, PCP - General 09/13/15 01/26/17 None, Provider [...] General Family Medicine - 05/18/20 02/01/21 [address] [place] [address] Rogelio Dominguez MD PCP - General Family Medicine - 02/02/21 11/02/21 [address] [place] [address] Madi Cook NP PCP - General Family Medicine - 11/03/[address] [place] [address] [address] documented as of this encounter
--- OUTSIDE RECORDS SUMMARY | 2022-06-05 06:53 | XMS_ITS | Encounter Summary ---
:[address] [facility] Address [address] [place] [address] Care Team Providers Name Role Phone Rajani Garrett Primary Care Provider Unavailable Encounter Details Date Type Department Care Team Description 09/27/2006 Results Only [facility] Rajani Garrett Pediatric Primary Care - [address] [phone] Social History Tobacco Use Types Packs/Day Years Used Date Never Assessed Sex Assigned at Date Recorded Male 09/05/2020 10:43 EDT documented as of this encounter Plan of Treatment Not on filedocumented as of this encounter Procedures Procedure Name Priority Date/Time Associated Diagnosis Comme nts INSULIN Routine 09/27/2006 8:39 EST Results for this procedure are i n the results section. ALT Routine 09/27/2006 8:39 EST Results for this procedure are i n the results section. AST Routine 09/27/2006 8:39 EST Results for this procedure are i n the results section. LIPID PROFILE Routine 09/27/2006 8:39 EST Results for this (INCLUDES procedure are i n CHOLESTEROL, the results TRIGLYCERIDES, HDL, section. LDL) documented in this encounter Results (ABNORMAL) INSULIN (09/27/2006 8:39 EST) Pathologist Sig nature Insulin 46.9 (H)Comment: 6.0 - 27.0 [facility] Fasting reference uIU/ml range Specimen Performing Organization Address City/State/ZIP Code Phon e Number [facility] [address] [place] [address] SERVICES [facility] [address] [place] [address] (ABNORMAL) LIPID PROFILE (INCLUDES CHOLESTEROL, TRIGLYCERIDES, HDL, LDL) (09/27/2006 8:39 EST) Cholesterol 223 mg/dl [facility] Comment: Desirable:<200 Borderline:200-239 High Risk:>fz=632 Triglycerides 190 (H) 34 - 165 mg/dl [facility] HDL 44 mg/dl [facility] Comment: Highly Desirable:>60 Desirable:35-60 High Risk:<35 LDL, Calculated 141 mg/dl [facility] Comment: Desirable:<130 Borderline:130-159 High Risk:>al=440 Chol/HDL Ratio 5.1 [facility] Fasting? Yes [facility] Specimen Performing Organization Address City/[facility]/ZIP Code Phon e Number [facility] [address] [place] [address] SERVICES [facility] [address] [place] [address] (ABNORMAL) AST (09/27/2006 8:39 EST) Pathologist Sig nature AST 40 (H) 16 - 38 U/L [facility] Specimen Performing Organization Address [facility]/[place]IP [facility] [place] [facility] [address] [place] [address] SERVICES [facility] [address] [place] [address] (ABNORMAL) ALT (09/27/2006 8:39 EST) Pathologist Sig nature ALT 56 (H) 10 - 45 U/L [facility] Specimen Performing Organization Address [facility]/ZIP [facility] [place] Number [facility] [address] [place] [address] SERVICES [facility] [address] [place] [address] documented in this encounter Visit Diagnoses Not on filedocumented in this encounter Care Teams Credit Risk Analyst Relationship Specialty Start Date End Date Rajani Garrett PCP - General 03/10/09 06/15/10 documented as of this encounter
--- OUTSIDE RECORDS SUMMARY | 2022-06-05 06:53 | XMS_ITS | Encounter Summary ---
:1990 Author Organization [facility] Address [address] [place] [address] Care Team Providers Name Role Phone Unavailable Primary Care Provider Unavailable Encounter Details Date Type Department Care Team Description 08/05/2005 Hospital Encounter [facility] Emergency, Emergency Department - Pedro Pablo, Main [place] [address] [place] [phone] Social History Tobacco Use Types Packs/Day Years Used Date Never Assessed Sex Assigned at Date Recorded Male 09/05/2020 10:43 EDT documented as of this encounter Discharge Disposition Disposition Code Departure Means Destination Home or Self Care documented in this encounter Plan of Treatment Not on filedocumented as of this encounter Visit Diagnoses Not on filedocumented in this encounter
--- OUTSIDE RECORDS SUMMARY | 2022-06-05 06:53 | XMS_ITS | Encounter Summary ---
:1990 Author Organization [facility] Address [address] [place] [address] Care Team Providers Name Role Phone Unavailable Primary Care Provider Unavailable Encounter Details Date Type Department Care Team Description 04/23/2006 Hospital Encounter [facility] Rajani Schneider [address] [address] Social History Tobacco Use Types Packs/Day Years Used Date Never Assessed Sex Assigned at Date Recorded Male 09/05/2020 10:43 EDT documented as of this encounter Discharge Disposition Disposition Code Departure Means Destination Auto Discharge documented in this encounter Plan of Treatment Not on filedocumented as of this encounter Visit Diagnoses Not on filedocumented in this encounter
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
--- OUTSIDE RECORDS SUMMARY | 2022-06-05 06:53 | XMS_ITS | Encounter Summary ---
:1990 Author Organization [facility] Address [address] [place] [address] Care Team Providers Name Role Phone Unavailable Primary Care Provider Unavailable Encounter Details Date Type Department Care Team Description 11/11/2001 Hospital Encounter [facility] Emergency, Emergency Department - Pedro Pablo, Main [place] [address] [place] [phone] Social History Tobacco Use Types Packs/Day Years [...]
--- OUTSIDE RECORDS SUMMARY | 2022-06-05 06:53 | XMS_ITS | Encounter Summary ---
:1990 Author Organization [facility] Address [address] [place] [address] Care Team Providers Name Role Phone Ilan Kelly MD Primary Care Provider Rajani Garrett Primary Care Provider Unavailable Jazzy Ramos MD Primary Care Provider [phone] None, Provider Primary Care Provider Unavailable Jazzy Ramos MD Primary Care Provider [phone] Ilan Kelly MD Primary Care Provider Sixto Sandoval MD Unavailable Wolf Bethea MD MPH Primary Care Provider [phone] Rigo Leonardo MD Primary Care Provider Unknown, Provider Primary Care Provider None, Provider Primary Care Provider Unavailable Madi Monique MD Primary Care Provider None, Provider Primary Care Provider Unavailable Michael Sandoval MD Primary Care Provider [phone] Cristin Elizabeth NP Primary Care Provider Unavailable Michael Sandoval MD Primary Care Provider [phone] None, Provider Primary Care Provider Unavailable Mary Kate Mcduffie MD Primary Care Provider Beverly Mix MD Primary Care Provider Rogelio Dominguez MD Primary Care Provider Segel, Ivan ROTARY FILTER OPERATOR Primary Care Provider Encounter Details Date Type Department Care Team Description 11/21/2006 Hospital Encounter [facility] - S Rajani Garrett [address] [address] Social History Tobacco Use Types Packs/Day Years [...] 35.0 to 39.9 with comorbidity ([facility]) Note: Being Active Goal: Go for a walk 4 times per week for 20 minutes. The patient's confidence level, sources of support and barriers to change were assessed. Pertinent information is documented in the visit encounter. Counseling was provided to assess readiness, confidence and/or barriers to self-care. To learn more about your health please v isit: [facility] Wellness Resource documented as of this encounter Procedures Procedure Name Priority Date/Time Associated Diagnosis Comme nts GLUCOSE, SERUM Routine 11/21/2006 8:34 EST Result s for this procedure are i n the results section . documented in this encounter Results GLUCOSE, SERUM (11/21/2006 8:34 EST) Pathologist Sig nature Glucose, Serum 83 70 - 100 mg/dl [facility] Specimen Performing Organization Address City/State/ZIP Code Phon e Number [facility] [address] [place] [address] SERVICES [facility] [address] [place] [address] documented in this encounter Visit Diagnoses Not on filedocumented in this encounter Additional Health Concerns Infection Onset Date Last Indicated Resolved Time R/O COVID-19 08/18/2020 08/18/2020 08/23/2020 22:16 EDT R/O COVID-19 02/27/2021 02/27/2021 03/04/2021 22:15 EDT COVID-19 02/27/2021 02/27/2021 03/29/2021 22:15 EDT documented as of this encounter Care Teams Psychologist Developmental Relationship Specialty Start Date End Date Ilan Kelly MD PCP - General 06/16/10 10/18/[address] [place] [phone] Rajani Garrett PCP - General 03/10/09 06/15/10 Jazzy Ramos MD PCP - General 10/19/10 12/27/[address] [place] [address] None, Provider PCP - General 12/28/10 01/18/11 Jazzy Ramos MD PCP - General 01/19/11 01/28/[address] [place] [address] Ilan Kelly MD PCP - General 01/29/11 03/18/[address] [place] [phone] Sixto Sandoval MD PCP - Alternate 01/05/13 12/25/[address] [place] [phone] Wolf Bethea MD PCP - General 03/19/1305/[address] [phone] Rigo Leonardo MD PCP - General 06/04/14 09/12/15 1 [facility] [address] [place] [address] Unknown, MD Dao PCP - General 09/13/15 01/26/17 None, Provider [...] General Family Medicine - 05/18/20 02/01/21 [address] [place] [address] Rogleio Dominguez MD PCP - General Family Medicine - 02/02/21 11/02/21 [address] [place] [address] Madi Cook NP PCP - General Family Medicine - 11/03/[address] [place] [address] Primary Care [address] [place] [phone] documented as of this encounter
--- OUTSIDE RECORDS SUMMARY | 2022-06-05 06:53 | XMS_ITS | Encounter Summary ---
:1990 Author Organization [facility] Address [address] [place] [address] Care Team Providers Name Role Phone Rajani Garrett Primary Care Provider Unavailable Encounter Details Date Type Department Care Team Description 03/24/2008 Before [facility] - Pranav Garcia Converted Visit Maple gus Darby MD (Maple) [address] [facility] [address] [place], [place] [address] [place] [phone] (Wo rk) Social History Tobacco Use Types Packs/Day Years Used Date Never Assessed Sex Assigned at Date Recorded Male 09/05/2020 10:43 EDT documented as of this encounter Progress Notes Pranav Koch MD - 08/19/2009 0917 EDT PROGRESS/FOLLOWUP NOTE - 03/24/2008 THE PEDIATRIC GI TEAM: Pediatric GI, Hepatology & Nutrition MD Wolf Son MD Elizabeth F. Robinson, MS, PNP Neetu Coy MS, DIRECT CHILL CASTING OPERATOR ([id number]), PROBLEM Obesity. SUBJECTIVE Zeeshan returns to the [facility] for the 1st time since last July. Since that time, he haschanged his living situation and is now a resident of the [facility]. He has recently been transferred to this institution. He is accompanied by his corrections caseworker it sales representative from [employer]. They both feel that Zeeshan has made some improvements in his levelof activity and his nutritional intake; however, there are some barriers to being at this correctional facility. One example is that Zeeshan is currently in a probationary period where he is not allowed access to outside areas. This is italia to a solitary confinement type situation where he is not allowed to be out and active in the outer portions of the campus. This severely limits his physical activities. He also feels that the quality of cooking at this institution is poor and that seems to generally be the case, not just for what Zeeshan needs, but for all of the residents. The program is looking into ways that they can improve this generally for all involved. Zeeshan continues to gain weight. His review of systems is otherwise documented in the flow sheet of his Pediatric GI chart, as well as in the interval questionnaire. OBJECTIVE On exam today, he is in no distress, though still very heavy in appearance. In fact, he has gained 20 pounds since his visit 8 months ago.His weight specifically is up to 257.8 pounds. His height is 116.9 cm. This gives him an increase in his BMI from 37 back in July to 39.8, where it is currently. His HEENT exam is significant for some acanthosis nigricans around the nape of his neck, as well as on his face and his axillae. His abdomen is obese with abdominal striae. He has good bowel sounds and no distention. There is no organomegaly palpable. The rest of his exam is normal and fully documented in the flow sheet of his Pediatric GI chart. IMPRESSION AND PLAN Zeeshan is a 18-year-old male with significant obesity who has significant limitations to being able to deal with and approach this diagnosis adequately. Specifically, he is in a residential living situation that is not conducive to any of the number of interventions and therapies that would be beneficial for him. I am hopeful to hear that [facility] is making strides to improve their nutritional qualityof the foods they serve to their clients. I would like Zeeshan to increasehis energy expenditure and Ihave asked the school to give him special consideration to use outdoor facilities and give him access to open space for physical activity. I am sending some repeat screening labs today, including thyroid function studies, liver function studies, CBC with diff, and sed rate to monitor his progress, as well as a hemoglobin A1C. Gone over all recommendations and will see him back in the next few months. Signed by Pranav Garcia MD 04/14/2008 11:36 Pranav Garcia MD Division of Pediatric Gastroenterology [phone] - Pranav Garcia MD P - [facility] Job ID: [id number] Doc ID: [id number] cc: AUBREE Quinn documented in this encounter Plan of Treatment Not on filedocumented as of this encounter Visit Diagnoses Not on filedocumented in this encounter Care Teams Ui Developer Relationship Specialty Start Date End Date Rajani Garrett PCP - General 03/10/09 06/15/10 documented as of this encounter
--- OUTSIDE RECORDS SUMMARY | 2022-06-05 06:53 | XMS_ITS | Encounter Summary ---
:[address] [facility] Address [address] [place] [address] Care Team Providers Name Role Phone Ilan Kelly MD Primary Care Provider Rajani Garrett Primary Care Provider Unavailable Jazzy Ramos MD Primary Care Provider [phone] None, Provider Primary Care Provider Unavailable Jazzy Ramos MD Primary Care Provider [phone] Ilan Kelly MD Primary Care Provider Sixto Sandoval MD Unavailable Wolf Bethea MD MPH Primary Care Provider Rigo Leonardo MD Primary Care Provider Unknown, Provider Primary Care Provider None, Provider Primary Care Provider Unavailable Madi Monique MD Primary Care Provider None, Provider Primary Care Provider Unavailable Mcihael Sandoval MD Primary Care Provider [phone] Cristin Elizabeth NP Primary Care Provider Unavailable Michael Sandoval MD Primary Care Provider [phone] None, Provider Primary Care Provider Unavailable Mary Kate Mcduffie MD Primary Care Provider Beverly Mix MD Primary Care Provider Rogelio Dominguez MD Primary Care Provider Segel, Ivan DATA ANALYTICS ARCHITECT Primary Care Provider Encounter Details Date Type Department Care Team Description 09/27/2006 Hospital Encounter [facility] - Rajani Garrett [address] [address] Social History Tobacco Use Types Packs/Day Years [...] (BMI) of 35.0 to 39.9 with comorbidity ([facility]) Note: Being Active Goal: Go for a walk 4 times per week for 20 minutes. The patient's confidence level, sources of support and barriers to change were assessed. Pertinent information is documented in the visit encounter. Counseling was provided to assess readiness, confidence and/or barriers to self-care. To learn more about your health please v isit: [facility] Wellness Resource documented as of this encounter Visit Diagnoses Not on filedocumented in this encounter Additional Health Concerns Infection Onset Date Last Indicated Resolved Time R/O COVID-19 08/18/2020 08/18/2020 08/23/2020 22:16 EDT R/O COVID-19 02/27/2021 02/27/2021 03/04/2021 22:15 EDT COVID-19 02/27/2021 02/27/2021 03/29/2021 22:15 EDT documented as of this encounter Care Teams Center Line Cutter Operator Relationship Specialty Start Date End Date Ilna Kelly MD PCP - General 06/16/10 10/18/[address] [place] [phone] Rajani Garrett PCP - General 03/10/09 06/15/10 Jazzy Ramos MD PCP - General 10/19/10 12/27/[address] [place] [address] None, Provider PCP - General 12/28/10 01/18/11 Jazzy Ramos MD PCP - General 01/19/11 01/28/[address] [place] [address] Ilan Kelly MD PCP - General 01/29/11 03/18/[address] [place] [phone] Sixto Sandoval MD PCP - Alternate 01/05/13 12/25/[address] [place] [phone] Wolf Bethea MD PCP - General 03/19/1305/[address] [phone] Rigo Leonardo MD PCP - General 06/04/14 09/12/[address] [place] [phone] Unknown, MD Dao PCP - General 09/13/15 [...] General Family Medicine - 05/18/20 02/01/21 [address] [place] [address] Rogelio Dominguez MD PCP - General Family Medicine - 02/02/21 11/02/21 [address] [place] [address] Madi Cook NP PCP - General Family Medicine - 11/03/[address] [place] [phone] documented as of this encounter
--- OUTSIDE RECORDS SUMMARY | 2022-06-05 06:53 | XMS_ITS | Encounter Summary ---
:1990 Author Organization [facility] Address [address] [place] [address] Care Team Providers Name Role Phone Unavailable Primary Care Provider Unavailable Encounter Details Date Type Department Care Team Description 06/27/2004 Hospital Encounter [facility], Emergency Department - MD Pedro Pablo Main [place] [address] [place] [phone] Social History Tobacco Use Types Packs/Day Years Used Date Never Assessed Sex Assigned at Date Recorded Male 09/05/2020 10:43 EDT documented as of this encounter Discharge Disposition Disposition Code Departure Means Destination Home or Self Care documented in this encounter Plan of Treatment Not on filedocumented as of this encounter Procedures Procedure Name Priority Date/Time Associated Diagnosis Comme nts ANKLE 3 OR MORE Routine 06/27/2004 20:02 Results for this VIEWS EDT procedure are i n the results section. documented in this encounter Results ANKLE 3 OR MORE VIEWS (06/27/2004 20:02 EDT) Anatomical Region Laterality Modality Other Specimen Narrative [facility] - 07/29/2009 10 :08 EDT twist injury r/o fx LEFT ANKLE Three views of the left ankle were submi tted. There is soft tissue swelling laterally. No fracture is seen. The study is otherwise unremarkable. /[facility] Procedure Note Job Reardon MD - 07/29/2009 twist injury r/o fx LEFT ANKLE Three views of the left ankle were submi tted. There is soft tissue swelling laterally. No fracture is seen. The study is otherwise unremarkable. /[facility] Performing Organization Address City/State/ZIP Code Phon e Number [facility] [address] [facility] [address] [facility] [address] [place], [place] [address] documented in this encounter Visit Diagnoses Not on filedocumented in this encounter
--- OUTSIDE RECORDS SUMMARY | 2022-06-05 06:53 | XMS_ITS | Encounter Summary ---
:1990 Author Organization [facility] Address [address] [place] [address] Care Team Providers Name Role Phone Unavailable Primary Care Provider Unavailable Encounter Details Date Type Department Care Team Description 06/04/2005 Hospital Encounter [facility] Emergency, Emergency Department - MD Pedro Pablo [address] [place] [address] [place], [place] [phone] Social History Tobacco Use Types Packs/Day Years Used Date Never Assessed Sex Assigned at Date Recorded Male 09/05/2020 10:43 EDT documented as of this encounter Discharge Disposition Disposition Code Departure Means Destination Home or Self Care documented in this encounter Plan of Treatment Not on filedocumented as of this encounter Procedures Procedure Name Priority Date/Time Associated Diagnosis Comme nts HAND 3 OR MORE 06/04/2005 14:02 Results f or this VIEWS EDT procedure are i n the results section. documented in this encounter Results HAND 3 OR MORE VIEWS (06/04/2005 14:02 EDT) Anatomical Region Laterality Modality Other Specimen Narrative [facility] - 06/23/2009 5: 02 EDT S/P BLOW, NOW TENDER PROXIMAL 5TH PHALYNX, 5TH METACARPAL R/O FX, DISLOCATION 3 VIEWS OF THE RIGHT HAND: ??06/04/05 13 :40 HOURS Aside from soft tissue swelling around t he 5th digit, there is no visible abnormality. ??A nondisplaced ep iphyseal plate fracture cannot be excluded and if symptoms warrant, fol low-up is advised. D: ??06/04/05 T: ??06/07/05 /dw Procedure Note Cj Barrientos MD - 06/23/2009 S/P BLOW, NOW TENDER PROXIMAL 5TH PHALY NX, 5TH METACARPAL R/O FX, DISLOCATION 3 VIEWS OF THE RIGHT HAND: 06/04/05 13:4 0 HOURS Aside from soft tissue swelling around t he 5th digit, there is no visible abnormality. A nondisplaced epip hyseal plate fracture cannot be excluded and if symptoms warrant, fol low-up is advised. /burak Performing Organization Address City/State/ZIP Code Phon e Number [facility] [address] [facility] [address] [facility] [address] [place], [place] [address] documented in this encounter Visit Diagnoses Not on filedocumented in this encounter
--- OUTSIDE RECORDS SUMMARY | 2022-06-05 06:53 | XMS_ITS | Encounter Summary ---
:1990 Author Organization [facility] Address [address] [place] [address] Care Team Providers Name Role Phone Rajani Garrett Primary Care Provider Unavailable Encounter Details Date Type Department Care Team Description 08/05/2005 Office Visit [facility] - Ayah Kendrick MD, MD Maple conversion [address] [place] [address] [place] [address] Social History Tobacco Use Types Packs/Day Years Used Date Never Assessed Sex Assigned at Date Recorded Male 09/05/2020 10:43 EDT documented as of this encounter Progress Notes Adele Kendrick MD, MD - 01/18/2010 1107 EST Department - Physician Summary Registration Date/Time: 08/05/2005 15:05 Arrived- By private vehicle. Historian- patient. HISTORY OF PRESENT ILLNESS Chief Complaint- EARACHE and left ear This started yesterday and is still present (persistent). Location- left ear. The pain is described as mild. He has had ear pain. The patient has had mild right-sided hearing loss and moderate left-sided hearing loss (3 days). No fever, ear drainage, dizziness or nasal discharge or congestion. No sinus pressure, tinnitus, complaint of foreign body in the ear, eartrauma or recent barotrauma. No sore throat, toothache, jaw pain or facial pain. The patient has had contact with a sick family member (multiple, sister same complaint). (Pt had URI1 week ago, started having decreased hearing 3 days ago worse in left and ear pain in left ear yesterday.). The patient has had similar symptoms previously. REVIEW OF SYSTEMS No chills, difficulty breathing, chest pain, cough or nausea. No vomiting, diarrhea, abdominal pain,headache or eye discomfort. No difficulty with urination, skin rash, enlarged lymph nodes or joint pain. No history of decreased oral intake. PAST HISTORY (asthma). Medications: See nurses notes. Allergies: No known drug allergies. SOCIAL HISTORY Second-hand smoke exposure. Caregiver- mother. ADDITIONAL NOTES The nursing notes have been reviewed. PHYSICAL EXAM Appearance: No acute distress. Alert. Attentive. Smiles. The patient makes eye contact. Active. Vital Signs: The vital signs have been reviewed. Head: Head appears normal to external inspection. Eyes: equal, round and reactive to light. Conjunctivae and eyelids normal. Ear (left): There is mild tenderness of the auricle and erythema of the external canal, moderate erythema and mild bulging of the tympanic membrane and moderate fluid behind the tympanic membrane. No pain with movement of the auricle, lymphadenopathy, swelling of the external canal, material in the external canal or perforation of the tympanic membrane. Does not have loss of tympanic membrane landmarks. Normal mastoid. Ear (right): Right ear normal. Throat: Pharynx normal. Neck: Neck supple. No neck mass. PROGRESS AND PROCEDURES E.D. Course: d/w and examined by Dr. Trotter ED Attending on duty and available for supervision: Seth Trotter. Disposition: Discharged home. Condition: good. Discharged home in good condition. CLINICAL IMPRESSION Left acute otitis media. INSTRUCTIONS (May take OTC ibuprofen for pain.). Warnings: GENERAL WARNINGS: Return or contact your physician immediately if your condition worsens or changes unexpectedly, if not improving as expected, or if other problems arise. Prescription Medications: Amoxicillin 500 mg tablets: Take 1 orally every 8 hours for 10 days. Dispense 30. No refills. Follow-up: Follow up with your doctor in two days if not better. (Electronically signed by Shobha Kendrick M.D. 08/06/2005 15:07) Arrived- By private vehicle. Historian- patient. Attending Note: I supervised care provided by the resident. We have discussed the case. I have reviewed the note and agree with the plan of treatment. I personally interviewed the patient and examined the patient. (Bilat ear pain. ). HISTORY OF PRESENT ILLNESS Chief Complaint- EARACHE and left ear This started yesterday and is still present (persistent). Location- left ear. The pain is described as mild. He has had ear pain. The patient has had mild right-sided hearing loss and moderate left-sided hearing loss (3 days). No fever, ear drainage, dizziness or nasal discharge or congestion. No sinus pressure, tinnitus, complaint of foreign body in the ear, eartrauma or recent barotrauma. No sore throat, toothache, jaw pain or facial pain. The patient has had contact with a sick family member (multiple, sister same complaint). (Pt had URI1 week ago, started having decreased hearing 3 days ago worse in left and ear pain in left ear yesterday.). The patient has had similar symptoms previously. REVIEW OF SYSTEMS No chills, difficulty breathing, chest pain, cough or nausea. No vomiting, diarrhea, abdominal pain,headache or eye discomfort. No difficulty with urination, skin rash, enlarged lymph nodes or joint pain. No history of decreased oral intake. PAST HISTORY (asthma). Medications: See nurses notes. Allergies: No known drug allergies. SOCIAL HISTORY Second-hand smoke exposure. Caregiver- mother. ADDITIONAL NOTES The nursing notes have been reviewed. PHYSICAL EXAM Appearance: No acute distress. Alert. Attentive. Smiles. The patient makes eye contact. Active. Vital Signs: The vital signs have been reviewed. Head: Head appears normal to external inspection. Eyes: Pupils equal, round and reactive to light. Conjunctivae and eyelids normal. Ear (left): There is mild tenderness of the auricle and erythema of the external canal, moderate erythema and mild bulging of the tympanic membrane and moderate fluid behind the tympanic membrane. Nopain with movement of the auricle, lymphadenopathy, swelling of the external canal, material in the external canal or perforation of the tympanic membrane. Does not have loss of tympanic membrane landmarks. Normal mastoid. Ear (right): Right ear normal. Throat: Pharynx normal. Neck: Neck supple. No neck mass. PROGRESS AND PROCEDURES Patient/family counseled. Old medical records reviewed. Disposition: Discharged home. Condition: good. Discharged home in good condition. CLINICAL IMPRESSION Left acute otitis media. INSTRUCTIONS (May take OTC ibuprofen for pain.). Warnings: GENERAL WARNINGS: Return or contact your physician immediately if your condition worsens or changes unexpectedly, if not improving as expected, or if other problems arise. Prescription Medications: Amoxicillin 500 mg tablets: Take 1 orally every 8 hours for 10 days. Dispense 30. No refills. Follow-up: Follow up with your doctor in two days if not better. (Electronically signed by Demarcus Trotter M.D. 08/05/2005 17:05) Department- Nursing Summary Registration Date/Time: 08/05/2005 15:05 TRIAGE Initial Assessment Triage time 15:06 Acuity: LEVEL 5. BP: 112 / 65 HR: 88RR: 20 Temp: 36.7 tympanic Alert. No acute distress. --1508 Aimee Jeffries R.N. Medications (albuterol, wellbutrin xl, flovent, claritan (just finished prednisone)). --1508 Aimee Jeffries R.N. Allergies No known drug allergies. --1508 Aimee Jeffries R.N. History Chief Complaint: EAR PAIN and (bilateral). Onset- 3 days PAST HX: Asthma. SOCIAL HX: Second-hand smoke exposure. Arrived by private vehicle and accompanied by family. Historian: patient. --1508 Aimee Jeffries R.N. PHYSICAL ASSESSMENT Alert. Appears in no acute distress. Respirations not labored. Skin is warm and dry. --1508 Aimee Jeffries R.N. DISPOSITION / DISCHARGE Condition at departure: improved. Fall risk assessment completed. No fall risk identified. No barriers to learning present. Discharge instructions reviewed with the patient and parent. Warnings reviewed. Reviewed medication. Treatments reviewed. Activity restrictions were reviewed. Patient and international marketing intern verbalized understanding. Written instructions provided in [place]. The patient was discharged home and accompanied by parent. The patient left the Emergency Department ambulatory and via private vehicle. --1606 Jada Ochoa R.N., R.N. Locked/Released at 08/06/2005 8:01 by Danii Klein R.N. documented in this encounter Plan of Treatment Not on filedocumented as of this encounter Visit Diagnoses Not on filedocumented in this encounter Care Teams Cardio Tech Relationship Specialty Start Date End Date Rajani Garrett PCP - General 03/10/09 06/15/10 documented as of this encounter
--- OUTSIDE RECORDS SUMMARY | 2022-06-05 06:53 | XMS_ITS | Encounter Summary ---
:1990 Author Organization [facility] Address [address] [place] [address] Care Team Providers Name Role Phone Rajani Garrett Primary Care Provider Unavailable Encounter Details Date Type Department Care Team Description 03/20/2006 Results Only [facility] Rajani Garrett Pediatric Primary Care - [address] [phone] Social History Tobacco Use Types Packs/Day Years Used Date Never Assessed Sex Assigned at Date Recorded Male 09/05/2020 10:43 EDT documented as of this encounter Plan of Treatment Not on filedocumented as of this encounter Procedures Procedure Name Priority Date/Time Associated Comments Diagnosis TSH Routine 03/20/2006 9:39 EDT Results for this procedure are i n the results section. T4 FREE Routine 03/20/2006 9:39 EDT Results for this procedure are i n the results section. HEMOGLOBIN A1C Routine 03/20/2006 9:39 EDT Result s for this procedure are i n the results section. HEPATIC FUNCTION Routine 03/20/2006 9:39 EDT Resu lts for this PANEL (ALB,ALK procedure are in PHOS,ALT,AST,DBIL,TO the res ults T JULIOCESAR,TOT PROT) section. documented in this encounter Results TSH (03/20/2006 9:39 EDT) Pathologist Sig nature TSH 1.22 0.35 - 5.00 uIU/mL [facility] Specimen Performing Organization Address City/State/ZIP Code Phon e Number [facility] [address] [place] [address] SERVICES [facility] [address] [place] [address] (ABNORMAL) LIVER FUNCTION TESTS (03/20/2006 9:39 EDT) Pathologist Sig nature Albumin 4.4 3.0 - 5.5 g/dl [facility] Total Protein 7.1 6.3 - 8.6 g/dl [facility] Total Alkaline 243 200 - 495 U/L [facility] Phosphatase ALT 84 (H) 10 - 45 U/L [facility] AST 57 (H) 16 - 46 U/L [facility] Unconjugated Bilirubin 0.2 0.1 - 1.1 mg/dl [facility] Conjugated Bilirubin 0.0 0.0 - 0.3 mg/dl [facility] B Bilirubin, Total <0.5 0.0 - 1.4 mg/dl [facility] Specimen Performing Organization Address City/[facility]/ZIP Code Phon e Number [facility] [address] [place] [address] SERVICES [facility] [address] [place] [address] T4 FREE (03/20/2006 9:39 EDT) Pathologist Sig nature Free T4 1.1 0.8 - 1.5 ng/dL [facility] Specimen Performing Organization Address City/[facility]/ZIP Code Phon e Number [facility] [address] [place] [address] SERVICES [facility] [address] [place] [address] HEMOGLOBIN A1C (03/20/2006 9:39 EDT) Hemoglobin A1C 5.7 % [facility] Comment: Reference Range: <6% Normal Range <7% Recommended goal by ADA guidelines 7-8% Suboptimal by ADA guidelines >8% Further action suggested by ADA guidelines Specimen Performing Organization Address City/[facility]/ZIP Code Phon e Number [facility] [address] [place] [address] SERVICES [facility] [address] [place] [address] documented in this encounter Visit Diagnoses Not on filedocumented in this encounter Care Teams Meeting Manager Relationship Specialty Start Date End Date Rajani Garrett PCP - General 03/10/09 06/15/10 documented as of this encounter
--- OUTSIDE RECORDS SUMMARY | 2022-06-05 06:53 | XMS_ITS | Encounter Summary ---
:1990 Author Organization [facility] Address [address] [place] [address] Care Team Providers Name Role Phone Rajani Garrett Lee Primary Care Provider Unavailable Encounter Details Date Type Department Care Team Description 01/31/2009 Office Visit [facility] - Ajay Cao MD Maple conversion [address] [place] [address] [address], [place] [phone] (Wo rk) Social History Tobacco Use Types Packs/Day Years Used Date Never Assessed Sex Assigned at Date Recorded Male 09/05/2020 10:43 EDT documented as of this encounter Progress Notes Madi Cao MD - 02/25/2010 2220 EDT Department - Physician Summary Registration Date/Time: 01/31/2009 14:34 Attending Note: I supervised care provided by the resident. We have discussed the case. I have reviewed the note and agree with the plan of treatment. I personally interviewed the patient and examined the patient. I have personally reviewed the X-rays. LABS, X-RAYS, AND EKG Chest X-ray: No acute disease. Normal lung markings present. No infiltrate. No pneumothorax or pleural effusion. Views: PA and lateral. Technique: poor inspiration. The X-rays were independently viewedby me. (Electronically signed by Madi Cao M.D. 02/02/2009 10:59) Arrived- By private vehicle. Historian- patient and family. HISTORY OF PRESENT ILLNESS Chief complaint- DYSPNEA. This started last night Patient wasat counseling session last night when he began having substernal chest pain and difficulty breathing; has tried home asthma inhalers withoutrelief and is still present. The dyspnea is described as moderate. He has had a moderate cough productive of sputum. The patient complains of mild, stabbing central chest pain, currently mild. No radiation, modifying factors or associated symptoms. No sputum production. Takes asthma medications. (Patient takes flovent BID and albuterol q4-6h PRN. Last albuterol treatment was 30minutes prior to arrival and did not provide relief of symptoms.). The patient has had similar symptoms many times previously (Astham exacerbations like this in the past- similar). Not recently seen/assessed. REVIEW OF SYSTEMS No sore throat, nasal discharge, sinus drainage, fever or chills. No muscle aches, headache, calf pain, nausea or abdominal pain. No skin rash or vomiting. PAST HISTORY Asthma. Borderline DM, Fatty liver disease, unstable emotionally per pt. Medications: The patient's medications have been reviewed with the patient. See nurses notes. Allergies: No known drug allergies. SOCIAL HISTORY Nonsmoker. No alcohol use or drug use. FAMILY HISTORY Asthma on paternal side of family- multiple members. PHYSICAL EXAM Appearance: Alert. Anxious. Patient in mild distress. Vital Signs: Have been reviewed (- T36.7 - BP134/70 - P118 - R48 - O2 sat99). ENT: Nose normal. Pharynx normal. No pharyngeal erythema or tonsillar exudate. The mucous membranes are not dry. Neck: Neck supple. No lymphadenopathy. CVS: Tachycardia. Heart sounds normal. Pulses normal. Rhythm normal. No cardiac murmur. Respiratory: No respiratory distress. Mildly decreased air movement diffusely over both lungs. No accessory muscle use, prolonged expiration, wheezes, stridor or rales. No rhonchi. Abdomen: Abdomen soft and nontender. No organomegaly. No abdominal tenderness, guarding, rebound tenderness or organomegaly. Skin: No rash. Extremities: No lower extremity edema. Neuro: Oriented X 3. LABS, X-RAYS, AND EKG Chest X-ray: No acute disease. Views: PA and lateral. Technique: good. The X- rays were independentlyviewed by me. PROGRESS AND PROCEDURES E.D. Course: Decadron 10mg IM administered. Duonebx1 given with Ativan 1mg sublingual given for anxiety.. ED Attending on duty and available for supervision: Karthik Cao. Disposition: Condition: stable. Discharged home. Discharged home in stable condition. CLINICAL IMPRESSION Acute asthma exacerbation. INSTRUCTIONS No restrictions to activity. No dietary restrictions. (Return for increasing or change in chest pain. Return for increasing shortness of breath. Use albuterol inhaler q4-6 hours as needed. Patient medically cleared for travel to [place].). Warnings: GENERAL WARNINGS: Return or contact your physician immediately if your condition worsens or changes unexpectedly, if not improving as expected, or if other problems arise. Your Current Medications: Continue current medications. Prescription Medications: Albuterol HFA oral inhaler: inhale 1 to 2 puffs every four to six hours as needed for difficulty breathing. Dispense 1 unit. No refills. Understanding of the discharge instructions verbalized by patient and parent. (Electronically signed by Jenny Morales MD 01/31/2009 17:44) Department - Nursing Summary Registration Date/Time: 01/31/2009 14:34 TRIAGE Initial Assessment Triage time 14:35. Acuity: LEVEL 3. BP: 134 / 7 0. HR: 118. RR: 48. Temp: 36.7 C (tympanic). O2 saturation: 99% room air. Alert. --1441 Anastasia Currie R.N.. Medications Flovent Inhaler (110 mcg) : 2 puffs twice a day. Trazodone: 150mg daily. Vitamins. Xopenex Inhaler: 2 puffs four times a day (2 puffs 15 minutes ago). --1441 Anastasia Currie R.N.. Allergies No known drug allergies. --1441 Anastasia Currie R.N.. History Chief Complaint: ASTHMA ATTACK. This started yesterday. Pain level now: 8/10. The patient has had chest discomfort and a cough. Takes asthma medications. (Patient states face feels 'tingly'). Treatment GROUP TESTER: Took breathing treatment x1. PAST HX: Asthma. Insomnia. (Fatty tissue around liver). No infectious disease exposure. SOCIAL HX: Nonsmoker. No alcohol use. Functional assessment: no impairments noted. The nutritional risk assessment revealed no deficiencies. No report of abuse. Arrived by private vehicle and accompanied by mother. Historian: patient. --1441 Anastasia Currie R.N.. PAST HX: Interventions To room. --1441 Anastasia Currie R.N.. PHYSICAL ASSESSMENT Alert. Appears in no acute distress. Oriented X 3. Mild respiratory distress. The patient can speak in full sentences. Accessory muscles use. Cough noted. Chest wall tenderness. --1445 Anastasia Currie R.N.. NURSING PROGRESS NOTES ALBUTEROL nebulizer treatment (1 unitdose) with ATROVENT given by nurse. . --1537 Jeanna Coelho R.N. O2 saturation: 99% room air. --1540 Jeanna Coelho R.N. DECADRON 10mg IM left anterior lateral thigh. . --1553 Jeanna Coelho R.N. ATIVAN 1 mg PO. . --1553 Jeanna Coelho R.N.. DISPOSITION / DISCHARGE Condition at departure: improved. Patient reports pain level on departure as 0/10. Fall risk assessment completed. No fall risk identified. Ability to learn limited by poor comprehension; teaching performed with the railroad worker. Discharge instructions reviewed with the cell lead. Reviewed medication (albuterol). Food Preparation Supervisor verbalized understanding. Written instructions provided in Italian. The patient was accompanied by cell lead. The patient left the Emergency Department ambulatory and via private vehicle. Food Preparation Supervisor driving. --1618 Jeanna Coelho R.N. (pt is in the custody of the state). --1618 Jeanna Coelho R.N.. Anastasia Coelho R.N. Locked/Released at 01/31/2009 16:18 by Jeanna Coelho R.N. documented in this encounter Plan of Treatment Not on filedocumented as of this encounter Visit Diagnoses Not on filedocumented in this encounter Care Teams Biscuit Maker Relationship Specialty Start Date End Date Rajani Garrett PCP - General 03/10/09 06/15/10 documented as of this encounter
--- OUTSIDE RECORDS SUMMARY | 2022-06-05 06:53 | XMS_ITS | Encounter Summary ---
:1990 Author Organization [facility] Address [address] [place] [address] Care Team Providers Name Role Phone Ilan Kelly MD Primary Care Provider Rajani Garrett Primary Care Provider Unavailable Jazzy Ramos MD Primary Care Provider [phone] None, Provider Primary Care Provider Unavailable Jazzy Ramos MD Primary Care Provider [phone] Ilan Kelly MD Primary Care Provider Sixto Sandoval MD Unavailable Wolf Bethea MD MPH Primary Care Provider Rigo Leonardo MD Primary Care Provider Unknown, Provider Primary Care Provider None, Provider Primary Care Provider Unavailable Madi Monique MD Primary Care Provider None, Provider Primary Care Provider Unavailable Michael Sandoval MD Primary Care Provider [phone] Cristin Elizabeth NP Primary Care Provider Unavailable Michael Sandoval MD Primary Care Provider [phone] None, Provider Primary Care Provider Unavailable Mary Kate Mcduffie MD Primary Care Provider Beverly Mix MD Primary Care Provider Rogelio Dominguez MD Primary Care Provider Segel, Ivan SLEEP TECH Primary Care Provider Encounter Details Date Type Department Care Team Description 07/30/2005 Hospital Encounter [facility] - Nellie Pickard, Other [address] [address] [place], [place] [phone] (Wo rk) Social History Tobacco Use Types [...] with comorbidity ([facility]) Note: Being Active Goal: Go for a walk 4 times per week for 20 minutes. The patient's confidence level, sources of support and barriers to change were assessed. Pertinent information is documented in the visit encounter. Counseling was provided to assess readiness, confidence and/or barriers to self-care. To learn more about your health please v isit: [facility] Wellness Resource documented as of this encounter Procedures Procedure Name Priority Date/Time Associated Diagnosis Comme nts GROUP A STREP Routine 07/30/2005 19:28 Results fo r this CULTURE EDT procedure are i n the results section. documented in this encounter Results CULTURE FOR GROUP A BETA STREPTOCOCCUS (07/30/2005 19:28 EDT) Specimen Throat [facility] Description LAB Result NO GROUP A BETA [facility] STREPTOCOCCI LAB ISOLATED Report Status Final [facility] [id number] LAB Specimen Performing Organization Address City/State/ZIP Code Phon e Number [facility] [address] [place] [address] SERVICES [facility] [address] [place] [address] documented in this encounter Visit Diagnoses Not on filedocumented in this encounter Additional Health Concerns Infection Onset Date Last Indicated Resolved Time R/O COVID-19 08/18/2020 08/18/2020 08/23/2020 22:16 EDT R/O COVID-19 02/27/2021 02/27/2021 03/04/2021 22:15 EDT COVID-19 02/27/2021 02/27/2021 03/29/2021 22:15 EDT documented as of this encounter Care Teams Mica Splitter Relationship Specialty Start Date End Date Ilan Kelly MD PCP - General 06/16/10 10/18/[address] [place] [phone] Rajani Garrett PCP - General 03/10/09 06/15/10 Jazzy Ramos MD PCP - General 10/19/10 12/27/[address] [place] [address] None, Provider PCP - General 12/28/10 01/18/11 Jazzy Ramos MD PCP - General 01/19/11 01/28/[address] [place] [address] Ilan Kelly MD PCP - General 01/29/11 03/18/[address] [place] [phone] Sixto Sandoval MD PCP - Alternate 01/05/13 12/25/[address] [place], [place] [phone] Wolf Bethea MD PCP - General 03/19/1305/18 MPH [address] [address] Rigo Leonardo MD PCP - General 06/04/14 09/12/[address] [address] Unknown, Provider, PCP - General 09/13/15 01/26/17 None, Provider PCP - General 01/27/17 02/05/17 Madi Monique MD PCP - General 02/06/17 04/14/17 None, Provider PCP - General 04/15/17 05/16/17 Michael Sandoval MD PCP - General 05/17/17 01/13/18 Cristin Elizabeth, VANNESA PCP - General 01/14/18 Michael Sandoval MD PCP - General 06/06/18 09/28/19 None, Provider PCP - General 09/29/19 01/07/20 Mary Kate Mcduffie MD PCP - General Family Medicine - 01/08/20 05/17/20 Primary Care Beverly Mix MD PCP - General Family Medicine - 05/18/20 02/01/[address] [place] [address] [place] [address] Rogelio Dominguez MD PCP - General Family Medicine - 02/02/21 11/02/21 [address] [facility] Care [place], [place] [address] Madi Cook NP PCP - General Family Medicine - 11/03/21 [address] [facility] Care [address] [address] documented as of this encounter
--- OUTSIDE RECORDS SUMMARY | 2022-06-05 06:53 | XMS_ITS | Encounter Summary ---
:1990 Author Organization [facility] Address [address] [place] [address] Care Team Providers Name Role Phone Ilan Kelly MD Primary Care Provider Rajani Garrett Primary Care Provider Unavailable Jazzy Ramos MD Primary Care Provider [phone] None, Provider Primary Care Provider Unavailable Jazzy Ramos MD Primary Care Provider [phone] Ilan Kelly MD Primary Care Provider Sixto Sandoval MD Unavailable Wolf Bethea MD MPH Primary Care Provider Rigo Leonardo MD Primary Care Provider Unknown, Provider Primary Care Provider None, Provider Primary Care Provider Unavailable Madi Monique MD Primary Care Provider None, Provider Primary Care Provider Unavailable Michael Sandoval MD Primary Care Provider [phone] Cristin Elizabeth NP Primary Care Provider Unavailable Michael Sandoval MD Primary Care Provider [phone] None, Provider Primary Care Provider Unavailable Mary Kate Mcduffie MD Primary Care Provider Beverly Mix MD Primary Care Provider Rogelio Dominguez MD Primary Care Provider Segel, Ivan MONITORING COORDINATOR Primary Care Provider Encounter Details Date Type Department Care Team Description 06/20/2006 Hospital Encounter [facility] - Rajani Schneider [address] [address] Social History Tobacco Use Types Packs/Day Years [...] of 35.0 to 39.9 with comorbidity ([facility]) Note: Being Active Goal: Go for a walk 4 times per week for 20 minutes. The patient's confidence level, sources of support and barriers to change were assessed. Pertinent information is documented in the visit encounter. Counseling was provided to assess readiness, confidence and/or barriers to self-care. To learn more about your health please v isit: [facility] Wellness Resource documented as of this encounter Procedures Procedure Name Priority Date/Time Associated Diagnosis Comme nts HEPATIC FUNCTION Routine 06/20/2006 7:53 EDT Resu lts for this PANEL (ALB,ALK procedure are in PHOS,ALT,AST,DBIL,T the resu lts OT JULIOCESAR,TOT PROT) section. LIPID PROFILE Routine 06/20/2006 7:53 EDT Results for this (INCLUDES procedure are i n CHOLESTEROL, the results TRIGLYCERIDES, HDL, section. LDL) documented in this encounter Results LIPID PROFILE (INCLUDES CHOLESTEROL, TRIGLYCERIDES, HDL, LDL) (06/20/2006 7:53 EDT) Cholesterol 173 mg/dl [facility] Comment: Desirable:<200 Borderline:200-239 High Risk:>zu=373 Triglycerides 160 34 - 165 mg/dl [facility] HDL 39 mg/dl [facility] Comment: Highly Desirable:>60 Desirable:35-60 High Risk:<35 LDL, Calculated 102 mg/dl [facility] Comment: Desirable:<130 Borderline:130-159 High Risk:>sb=447 Chol/HDL Ratio 4.4 [facility] Fasting? Yes [facility] Specimen Performing Organization Address [facility] Phon e Number [facility] [address] [place] [address] SERVICES [facility] [address] [place] [address] (ABNORMAL) LIVER FUNCTION TESTS (06/20/2006 7:53 EDT) Pathologist Sig nature Albumin 4.6 3.0 - 5.5 g/dl [facility] Total Protein 7.4 6.3 - 8.6 g/dl [facility] Total Alkaline 211 130 - 525 U/L [facility] Phosphatase ALT 61 (H) 10 - 45 U/L [facility] AST 41 (H) 16 - 38 U/L [facility] Unconjugated Bilirubin 0.4 0.1 - 1.1 mg/dl [facility] Conjugated Bilirubin 0.0 0.0 - 0.3 mg/dl [facility] LA B Bilirubin, Total <0.5 0.0 - 1.4 mg/dl [facility] Specimen Performing Organization Address [facility] Phon e Number [facility] [address] [place] [address] SERVICES [facility] [address] [place] [address] documented in this encounter Visit Diagnoses Not on filedocumented in this encounter Additional Health Concerns Infection Onset Date Last Indicated Resolved Time R/O COVID-19 08/18/2020 08/18/2020 08/23/2020 22:16 EDT R/O COVID-19 02/27/2021 02/27/2021 03/04/2021 22:15 EDT COVID-19 02/27/2021 02/27/2021 03/29/2021 22:15 EDT documented as of this encounter Care Teams Catering Sales Manager Relationship Specialty Start Date End Date Ilan Kelly MD PCP - General 06/16/10 10/18/[address] [place] [phone] Rajani Garrett PCP - General 03/10/09 06/15/10 Jazzy Ramos MD PCP - General 10/19/10 12/27/[address] [place] [address] None, Provider PCP - General 12/28/10 01/18/11 Jazzy Ramos MD PCP - General 01/19/11 01/28/[address] [place] [address] Ilan Kelly MD PCP - General 01/29/11 03/18/[address] [place] [phone] Sixto Sandoval MD PCP - Alternate 01/05/13 12/25/[address] [place] [phone] Wolf Bethea MD PCP - General 03/19/1305/[address] [place] [phone] Rigo Leonardo MD PCP - General 06/04/14 09/12/[address] [place] [phone] Unknown, Provider, PCP - General 09/13/15 01/26/17 [...] General Family Medicine - 05/18/20 02/01/21 [address] [place] [address] Rogelio Dominguez MD PCP - General Family Medicine - 02/02/21 11/02/21 [address] [place] [address] Madi Cook NP PCP - General Family Medicine - 11/03/[address] [phone] documented as of this encounter
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
--- OUTSIDE RECORDS SUMMARY | 2022-06-05 06:53 | XMS_ITS | Encounter Summary ---
:1990 Author Organization Health system Address [address] [place] [address] Care Team Providers Name Role Phone Rajani Garrett Primary Care Provider Unavailable Encounter Details Date Type Department Care Team Description 01/09/2010 Abstract Used for ABSTRACTING Data Rajani Garrett [phone] Social History Tobacco Use Types Packs/Day Years Used Date Never Assessed Sex Assigned at Date Recorded Male 09/05/2020 10:43 EDT documented as of this encounter Plan of Treatment Not on filedocumented as of this encounter Visit Diagnoses Not on filedocumented in this encounter Historical Medications This list may reflect changes made after this encounter. Medication Sig Dispensed Refills Start Date End Date UNABLE TO FIND Med Name: Blood 0 08/01 pressure med venlafaxine (EFFEXOR-XR) Take 75 mg by mouth 0 02/20/2010 75 mg XR capsule daily. venlafaxine (EFFEXOR-XR) Take 150 mg by mouth 0 02/20/2010 150 mg XR capsule daily. UNABLE TO FIND 10 mg. Med Name: 0 07/19 Doxepin HCL clonidine (CATAPRES) 0.1 Take 0.1 mg by mouth 0 08/01/2010 mg tablet daily. added in this encounter Care Teams Rough Patcher Relationship Specialty Start Date End Date Rajani Garrett PCP - General 03/10/09 06/15/10 documented as of this encounter
--- OUTSIDE RECORDS SUMMARY | 2022-06-05 06:53 | XMS_ITS | Encounter Summary ---
:1990 Author Organization [facility] Address [address] [place] [address] Care Team Providers Name Role Phone Rajani Garrett Primary Care Provider Unavailable Encounter Details Date Type Department Care Team Description 08/06/2007 Before PRISM [facility] - Pranav Garcia Converted Visit Maple gus Darby MD (Maple) [address] [facility] [address] [place], [place] [id number] [place] [phone] (Wo rk) Social History Tobacco Use Types Packs/Day Years Used Date Never Assessed Sex Assigned at Date Recorded Male 09/05/2020 10:43 EDT documented as of this encounter Progress Notes Pranav Koch MD - 09/25/2009 0132 EST PROGRESS/FOLLOWUP NOTE - THE PEDIATRIC GI TEAM: Pediatric GI, Hepatology & Nutrition MD Wolf Son MD Elizabeth F. Robinson, MS, PNP Neetu Coy MS, ERP ENGINEER ([id number]), REFERRING PROVIDER: AUBREE Quinn. PROBLEM: 1. Abdominal pain. 2. Hypertriglyceridemia. 3. Acanthosis nigricans. Zeeshan returns to the [facility] for the first time since 06/2005. He is beingseen today by myself and our Nutritional Team in the [facility]. Zeeshan has had a relatively difficult time with his condition overthe last two years. He continues to gain weight precipitously and really engage in no regular physical activity. He has been eating somewhat better for the last two years but over the last five months he has been incarcerated in a juvenile facility in [facility]. He has very limited access to healthy choices in terms of food and his daily routine and activityschedule is rigidly dictated to him. He is currently in the [facility] in [place], [place]. Zeeshan is in [facility] custody represented by Saturnino Gallegos his local [facility] studio model. He is accompanied today by a worker from [facility]. Zeeshan states that he continues to have occasional abdominal pain that is most left or right upper quadrant. It does not worsen withmeals. He does not have heartburn. It does not awaken him from sleep at night. He has not had his lipids checked again since his visit here two years ago when his triglycerides and cholesterol were elevated. He did not seek counseling. See the referral toDr. Gutiérrez that I made at the time and currently that is not an option while he is incarcerated and will be so for at least the next one year. REVIEW OF SYSTEMS: Otherwise fully documented in the Intake Questionnaire found in his Pediatric GI Chart. OBJECTIVE: On exam today, Zeeshan is well-appearing and in no distress. His weight is up to 237 pounds4 ounces, height is up to 67 inches. This is an increase in his BMI of 2 points to 37.1 still well above the 97th percentile on his growth curve. Blood pressure today is 134/79. He continues to have acanthosis nigricans around the nape of his neck. He continues to look obese. His abdomen is soft and nontender. He does have abdominal striae. His extremities are warm and well perfused but his chest is clear. Hisheart is regular rate and rhythm. He has no abdominal distention or tenderness. He has no organomegaly. He does have mild tenderness to deep palpation in the right upper quadrant. IMPRESSION AND PLAN: This is a 17-year-old male with abdominal pain likely due to fatty liver infiltration, acanthosis nigricans, and obesity. I am ordering additional screening tests today including acomplete blood count with differential, a full metabolic panel which includes liver function tests and albumin, as well as, a hemoglobin A1c, and a fasting lipid profile. I will go over these results with Zeeshan and his studio model and the nurse at the [facility] if necessary. I made again some important recommendations regarding physical activity and diet. He has also met with a gas welder apprentice today as well. I will be in close contact with the Director of the [facility], . Naysia Walker to see if there are certain changes in his daily regimen that can be manipulated towards helping him with better food options and more physical activity. I would like to see him back in followup in the next three or four months to monitor his progress closely. Time of the visit was 35 minutes with more than 50% spent in counseling and/or coordination of care. Signed by Pranav Garcia MD 08/11/2007 08:18 Miguel [facility] [id number] Cardozo [facility] [phone] Pranav Garcia MD Division of Pediatric Gastroenterology [phone] Pranav Garcia MD A - adeel Job ID: [id number] Doc ID: [id number] cc: AUBREE Quinn documented in this encounter Plan of Treatment Not on filedocumented as of this encounter Visit Diagnoses Not on filedocumented in this encounter Care Teams Refuge Worker Relationship Specialty Start Date End Date Rajani Garrett PCP - General 03/10/09 06/15/10 documented as of this encounter
--- OUTSIDE RECORDS SUMMARY | 2022-06-05 06:53 | XMS_ITS | Encounter Summary ---
:1990 Author Organization [facility] Address [address] [place] [address] Care Team Providers Name Role Phone Socrates Reeves Primary Care Provider Unavailable Reason for Visit Reason Comments Shortness of Breath worsing SOB for the last cou ple of hours Encounter Details Date Type Department Care Team Description 11/20/2009 Emergency [facility] Amaury Vasquez MD [address] [place] [address], [address] [place] [address] SOB (shortness of breath) on exertion; Emergency Department Emergency, MD Pedro Pablo Asthma - [address] [address] Social History Tobacco Use Types Packs/Day Years Used Date Never Assessed Sex Assigned at Date Recorded Male 09/05/2020 10:43 EDT documented as of this encounter Last Filed Vital Signs Vital Sign Reading Time Taken Comments Blood Pressure 135/79 11/20/2009 0931 EST Pulse 119 11/20/2009 0931 EST Temperature 37 ??C (98.6 ??F) 11/20/2009 0931 EST Respiratory Rate 16 11/20/2009 0931 EST Oxygen Saturation 97% 11/20/2009 0931 EST Inhaled Oxygen Concentration - - Weight - - Height - - Body Mass Index - - documented in this encounter Discharge Instructions Amaury Jackson MD - 11/20/2009 Images from the original note were not included. [facility] Patient Instructions 1) return if symptoms worsen or new symptoms develop 2) use inhaler as instructed Controlling Your Asthma: After Your Visit Your Care Instructions Asthma is a long-term condition that affects your breathing. It causes the airways that lead to the lungs to swell. During an asthma attack, the airways swell and narrow. This makes it hard to breathe,and you may wheeze or cough. If you have a bad attack, you may need emergency care. There are two parts to treating asthma: controlling asthma over the custodial and treating attacks when they occur. You and your doctor can make an asthma action plan that tells you what medicines you need to take every day to control asthma symptoms and what to do if you have an asthma attack. Your asthma action plan can help prevent and treat attacks. Keeping your asthma under control can prevent severe attacks and lasting damage to your airways. Youneed to treat your asthma even when you are not having symptoms. Although asthma is a lifelong problem, you can still lead a full and active life. Follow-up care is a eugene part of your treatment and safety. Be sure to make and go to all appointments, and call your doctor if you are having problems. It???s also a good idea to know your test resultsand keep a list of the medicines you take. How can you care for yourself at home? Controlling asthma over the kelp gatherer ?? Controller (or maintenance) medicines manage swelling in your lungs and prevent asthma attacks. Take your controller medicine exactly as prescribed. Call your doctor if you think you are having a problem with your medicine. Always bring your asthma medicine with you when you travel. ?? Inhaled corticosteroid is a common and effective controller medicine. Use corticosteroids correctly to prevent or reduce most side effects. Take your controller medicine every day, not just when you have symptoms. The goal is to prevent problems before they occur. Your doctor may prescribe another medicine, often a long-acting bronchodilator, that you use along with the corticosteroid. Do not take a long-acting bronchodilator by itself. Using a long-acting bronchodilator by itself can increase your risk of a severe or fatal asthma attack. Never take corticosteroids or long-acting bronchodilators to stop an asthma attack that has already started. They do not work fast enough to help. ?? Talk to your doctor before using other medicines. Some medicines, such as aspirin, can cause asthma attacks in some people. Learn what triggers an asthma attack for you, and avoid the triggers when you can. Common triggers include colds, smoke, air pollution, dust, pollen, mold, pets, cockroaches, stress, and cold air. Learn how to use a peak flow meter to check how well you are breathing. This can help you predict when an asthma attack is going to occur. Then you can take medicine to prevent the asthma attack or make it less severe. Do not smoke or allow others to smoke around you. Avoid smoky places. Smoking makes asthma worse. Ifyou need help quitting, talk to your doctor about stop- smoking programs and medicines. These can increase your chances of quitting for good. Avoid colds and the flu. Get a pneumococcal vaccine shot. If you have had one before, ask your doctor whether you need a second dose. Get a flu shot every fall. If you must be around people with colds or the flu, wash your hands often. Treating attacks when they occur ?? Use your asthma action plan when you have an attack. Quick-relief medicine relaxes the muscles that tighten around the airways. It will stop an asthma attack. Take your quick-relief medicine exactlyas prescribed. Call your doctor if you think you are having a problem with your medicine. Always bring your asthma medicine with you when you travel. ?? Albuterol is an effective quick-relief inhaler. You may need to use quick-relief medicine before you exercise. When should you call for help? Call 911 anytime you think you may need emergency care. For example, call if: ?? You are having severe trouble breathing. Call your doctor now or seek immediate medical care if: ?? Your symptoms do not get better after you have followed your asthma action plan. You cough up yellow, dark brown, or bloody mucus (sputum). Watch closely for changes in your health, and be sure to contact your doctor if: ?? Your coughing and wheezing get worse. You need to use your quick-relief medicine on more than 2 days a week (unless it is just for exercise). You need help figuring out what is triggering your asthma attacks. Where can you learn more? Go to www.[employer].net/fahc Enter Z663 in the search box to learn more about Controlling Your Asthma: After Your Visit. ?? 2005 - 2008 [employer]. Care instructions adapted under license by [facility], [facility] . This care instruction is for use with your licensed healthcare professional. If youhave questions about a medical condition or this instruction, always ask your healthcare professional. [employer] disclaims any warranty or liability for your use of this information. documented in this encounter Medications at Time of Discharge Medication Sig Dispensed Refills Start Date End Date lisinopril (PRINIVIL, Take 5 mg by mouth 0 08/01/2010 ZESTRIL) 5 mg tablet daily. loratadine (CLARITIN) 10 Take 10 mg by mouth 0 07/24/2010 mg tablet daily. Melatonin 3 mg Tab Take 6 mg by mouth 0 03/16/2010 at bedtime. metformin (GLUCOPHAGE-XR) Take 500 mg by 0 05/15/2010 500 mg XR tablet mouth daily. tocopheryl acetate Take 400 Units by 0 10/10/2011 (VITAMIN E) 200 unit mouth daily. capsule ursodiol (ACTIGALL) 300 mg Take 300 mg by 0 09/04/2010 capsule mouth 2 times daily. venlafaxine (EFFEXOR-XR) Take 225 mg by 0 08/01/2010 37.5 mg XR capsule mouth daily. zolpidem (AMBIEN) 5 mg Take 10 mg by mouth 0 05/15/2010 tablet at bedtime. documented as of this encounter Discharge Disposition Disposition Code Departure Means Destination Home or Self Care documented in this encounter ED Notes Janie Arauz RN - 11/20/2009 0900 EST Pt left before any meds, refused all meds and refused to wait for inhaler. aury Mercado MD - 11/20/2009 0929 EST DOS: 11/20/2009 Chief Complaint Patient presents with ??? Shortness of Breath worsing SOB for the last couple of hours Patient is a 19 y.o. male presenting with shortness of breath. The history is provided by the patient. Shortness of Breath This is a new problem. The current episode started less than 1 hour ago. The problem has not changedsince onset. Associated symptoms include wheezing. Pertinent negatives include no fever, no headaches, no rhinorrhea, no sore throat, no swollen glands, no neck pain, no sputum production, no hemoptysis, no chest pain, no vomiting, no abdominal pain and no leg swelling. The problem's precipitants include exercise. Associated medical issues include asthma. Review of Systems Constitutional: Positive for fatigue. Negative for fever, chills and diaphoresis. HENT: Negative for sore throat, rhinorrhea, neck pain and ear discharge. Eyes: Negative for photophobia. Respiratory: Positive for chest tightness, shortness of breath and wheezing. Negative for hemoptysisand sputum production. Cardiovascular: Negative for chest pain and leg swelling. Gastrointestinal: Negative for nausea, vomiting, abdominal pain and diarrhea. Genitourinary: Negative for dysuria, urgency, frequency and hematuria. Musculoskeletal: Negative for myalgias and arthralgias. Skin: Negative. Neurological: Negative for dizziness, weakness, numbness and headaches. Hematological: Negative. Psychiatric/Behavioral: Negative. All other systems reviewed and are negative. Past Medical History Diagnosis Date ??? Hypertension ??? Diabetes Mellitus ??? Asthma ??? Fatty Liver No past surgical history on file. Allergies Allergen Reactions ??? Pollen Extracts ??? Pineapple History Substance Use Topics ??? Tobacco Use: ??? Alcohol Use: Denies cigs No family history on file. BP 135/79 Pulse 119 Temp 37 ??C (98.6 ??F) Resp 16 SpO2 97% Physical Exam Nursing note and vitals reviewed. Constitutional: He is oriented. He appears well-developed and well-nourished. No distress. HENT: Head: Normocephalic and atraumatic. Right Ear: External ear normal. Left Ear: External ear normal. Nose: Nose normal. Mouth/Throat: Oropharynx is clear and moist. Eyes: Conjunctivae and extraocular motions are normal. Pupils are equal, round, and reactive to light. Neck: Normal range of motion. Cardiovascular: Normal rate, regular rhythm, normal heart sounds and intact distal pulses. Pulmonary/Chest: Effort normal. He has wheezes (few). Abdominal: Soft. No tenderness. Musculoskeletal: He exhibits no edema and no tenderness. Neurological: He is alert and oriented. No cranial nerve deficit. Skin: Skin is warm and dry. Psychiatric: He has a normal mood and affect. Radiology orders: None Procedures ED Course:Pt has been shoveling snow all night and is beginning to get SOB. Offer pt neb -refused and asked for an inhaler. Pulse ox 98% Pt given an inhaler and dc home. Discharge Prescriptions New Prescriptions No Discharge Prescriptions for this patient MDM Number of Diagnoses and Management Options Asthma: established, worsening SOB (Shortness of Breath) on Exertion: new, needed workup Amount and/or Complexity of Data Reviewed Independent visualization of images, tracings, or specimens: yes (Pulse ox) Risk of Complications, Morbidity, and/or Mortality Presenting problems: moderate Diagnostic procedures: low Management options: moderate General comments: 3 Patient Progress Patient progress: stable Encounter Diagnoses Code Name Primary? Qualifier ??? 786.05AQ SOB (Shortness of Breath) on Exertion ??? 493.90AE Asthma PCP: SOCRATES REEVES, PNP 11/20/2009 9:47 AM Janie Castellanos RN - 11/20/2009 0936 EST Pt changed into gown and asked, how long is this going to take? . documented in this encounter Miscellaneous Notes Scanned Note-Null - Inpatient, MD Dex - 11/22/2009 1245 EST documented in this encounter Plan of Treatment Not on filedocumented as of this encounter Visit Diagnoses Diagnosis SOB (shortness of breath) on exertion Shortness of breath Asthma Unspecified asthma documented in this encounter Active and Recently Administered Medications Orders Medications Ordered That Might Not Have Count Last Ord ered Date First Ordered Date Been Administered albuterol (PROVENTIL HFA, VENTOLIN HFA) 1 11/20/19 10 inhaler 2 Puff albuterol-ipratropium (COMBIVENT) 18-103 1 010 mcg/Actuation inhaler 2 Puff albuterol-ipratropium (DUO-NEB) 0.5-2.5 1 11/20/19 10 mg/3 mL nebulizer solution 3 mL documented in this encounter Care Teams Recreational Specialist Relationship Specialty Start Date End Date Socrates Reeves PCP - General 03/10/09 06/15/10 documented as of this encounter
--- OUTSIDE RECORDS SUMMARY | 2022-06-05 06:53 | XMS_ITS | Encounter Summary ---
:1990 Author Organization [facility] Address [address] [place] [address] Care Team Providers Name Role Phone Unavailable Primary Care Provider Unavailable Encounter Details Date Type Department Care Team Description 03/19/2006 Hospital Encounter [facility] Rajani Schneider [address] [address] Social History Tobacco Use Types Packs/Day Years Used Date Never Assessed Sex Assigned at Date Recorded Male 09/05/2020 10:43 EDT documented as of this encounter Discharge Disposition Disposition Code Departure Means Destination Auto Discharge documented in this encounter Plan of Treatment Not on filedocumented as of this encounter Visit Diagnoses Not on filedocumented in this encounter
--- OUTSIDE RECORDS SUMMARY | 2022-06-05 06:53 | XMS_ITS | Encounter Summary ---
:1990 Author Organization [facility] Address [address] [place] [address] Care Team Providers Name Role Phone Rajani Garrett Primary Care Provider Unavailable Encounter Details Date Type Department Care Team Description 10/16/2009 Emergency [facility] Emergency Emergency, Jesus watkins MD Department - Main [place] [facility] [address] [place] [address] Social History Tobacco Use Types Packs/Day Years Used Date Never Assessed Sex Assigned at Date Recorded Male 09/05/2020 10:43 EDT documented as of this encounter Discharge Disposition Disposition Code Departure Means Destination Comments Home or Self Care Car see ED no te documented in this encounter ED Notes Rosa Barnes - 10/16/[address] Brock informed of patient departure through PAS. osa Barnes - 10/16/2009 1631 EST Highly impatient and irritated mother storms out of ER at approximately 1625hrs, complaining of the wait for her 19y/o son to be seen. Mother exclaims [mumbled speech] is ridiculous and [inaudible speech] (while walking out of ER with son). High census and acuity in ER were relayed to mother in previous conversation. Son was referred for ED evaluation from outside physician. Mother and Son arrived together by car from home. Unknown device acquired high blood pressure - no mention of MD office visit that day. Son was observed in ED to be in no acute distress - without laboured breathing, without diaphoresis, moving and mentating appropriately and sitting upright in chair drinking clear liquid. Concerns for delaying care for her son were expressed, mother claims she will seek care for her son elsewhere. osa Barnes - 10/16/2009 1630 EST LEFT WITHOUT BEING SEEN Rosa Johnson - 10/16/2009 1557 EST TCALL: FARHAD FERRO 92 DR. PRAKASH BROCK REFERS PT TO ED FOR EVAL. CC: DIZZY, SWEATY. RECENTDX HTN. BP TODAY 170/111. EXTENSIVE MED LIST, MOM COMING WITH LIST. PAGE DR. MICHELL TORRES PAS. (D) documented in this encounter Plan of Treatment Not on filedocumented as of this encounter Visit Diagnoses Not on filedocumented in this encounter Care Teams Police Lieutenant Precinct Relationship Specialty Start Date End Date Rajani Garrett PCP - General 03/10/09 06/15/10 documented as of this encounter
--- OUTSIDE RECORDS SUMMARY | 2022-06-05 06:53 | XMS_ITS | Encounter Summary ---
:1990 Author Organization [facility] Address [address] [place] [address] Care Team Providers Name Role Phone Unavailable Primary Care Provider Unavailable Encounter Details Date Type Department Care Team Description 11/27/2005 Hospital Encounter [facility] - Michelle Luna MD [address] [address] [place] [address] (Wo rk) Social History Tobacco Use Types Packs/Day Years Used Date Never Assessed Sex Assigned at Date Recorded Male 09/05/2020 10:43 EDT documented as of this encounter Discharge Disposition Disposition Code Departure Means Destination Auto Discharge documented in this encounter Plan of Treatment Not on filedocumented as of this encounter Procedures Procedure Name Priority Date/Time Associated Diagnosis Comme nts GROUP A STREP Routine 11/27/2005 15:07 Results fo r this CULTURE EST procedure are i n the results section. documented in this encounter Results CULTURE FOR GROUP A BETA STREPTOCOCCUS (11/27/2005 15:07 EST) Specimen Throat [facility] Description LAB Result NO GROUP A BETA MIRZA SUHA STREPTOCOCCI LAB ISOLATED Report Status Final [facility] [id number] LAB Specimen Performing Organization Address City/State/ZIP Code Phon e Number [facility] [address] [place] [address] SERVICES [facility] [address] [place] [address] documented in this encounter Visit Diagnoses Not on filedocumented in this encounter
--- OUTSIDE RECORDS SUMMARY | 2022-06-05 06:53 | XMS_ITS | Encounter Summary ---
:1990 Author Organization [facility] Address [address] [place] [address] Care Team Providers Name Role Phone Ilan Kelly MD Primary Care Provider Rajani Garrett Primary Care Provider Unavailable Jazzy Ramos MD Primary Care Provider [phone] None, Provider Primary Care Provider Unavailable Jazzy Ramos MD Primary Care Provider [phone] Ilan Kelly MD Primary Care Provider Sixto Sandoval MD Unavailable Wolf Bethea MD MPH Primary Care Provider Rigo Leonardo MD Primary Care Provider Unknown, Provider Primary Care Provider None, Provider Primary Care Provider Unavailable Madi Monique MD Primary Care Provider None, Provider Primary Care Provider Unavailable Michael Sandoval MD Primary Care Provider [phone] Cristin Elizabeth NP Primary Care Provider Unavailable Michael Sandoval MD Primary Care Provider None, Provider Primary Care Provider Unavailable Mary Kate Mcduffie MD Primary Care Provider Beverly Mix MD Primary Care Provider Rogelio Dominguez MD Primary Care Provider Segel, Ivan WATER OPERATOR Primary Care Provider Encounter Details Date Type Department Care Team Description 09/12/2006 Hospital Encounter [facility] - Sherri España [facility] MD Tess [address] [place], [place] [id number] [place] [phone] Level 3 [place] [phone] (Wo rk) Social History Tobacco Use Types [...] of 35.0 to 39.9 with comorbidity ([facility]) Note: Being Active Goal: Go for a walk 4 times per week for 20 minutes. The patient's confidence level, sources of support and barriers to change were assessed. Pertinent information is documented in the visit encounter. Counseling was provided to assess readiness, confidence and/or barriers to self-care. To learn more about your health please v isit: [facility] Wellness Resource documented as of this encounter Visit Diagnoses Not on filedocumented in this encounter Additional Health Concerns Infection Onset Date Last Indicated Resolved Time R/O COVID-19 08/18/2020 08/18/2020 08/23/2020 22:16 EDT R/O COVID-19 02/27/2021 02/27/2021 03/04/2021 22:15 EDT COVID-19 02/27/2021 02/27/2021 03/29/2021 22:15 EDT documented as of this encounter Care Teams Branner Machine Tender Relationship Specialty Start Date End Date Ilan Kelly MD PCP - General 06/16/10 10/18/[address] [place] [phone] Rajani Garrett PCP - General 03/10/09 06/15/10 Jazzy Ramos MD PCP - General 10/19/10 12/27/[address] [place] [phone] None, Provider PCP - General 12/28/10 01/18/11 Jazzy Ramos MD PCP - General 01/19/11 01/28/[address] [place] [phone] Ilan Kelly MD PCP - General 01/29/11 03/18/[address] [place] [phone] Sixto Sandoval MD PCP - Alternate 01/05/13 12/25/[address] [place] [phone] Wolf Bethea MD PCP - General 03/19/1305/[address] [phone] Rigo Leonardo MD PCP - General 06/04/14 09/12/[address] [place] [phone] Unknown, Provider, PCP - General 09/13/15 01/26/17 [...] General Family Medicine - 05/18/20 02/01/21 [address] [place] [phone] Rogelio Dominguez MD PCP - General Family Medicine - 02/02/21 11/02/21 [address] [place] [address] Madi Cook NP PCP - General Family Medicine - 11/03/[address] [phone] documented as of this encounter
--- OUTSIDE RECORDS SUMMARY | 2022-06-05 06:53 | XMS_ITS | Encounter Summary ---
:1990 Author Organization [facility] Address [address] [place] [address] Care Team Providers Name Role Phone Rajani Garrett Primary Care Provider Unavailable Encounter Details Date Type Department Care Team Description 10/17/2009 Office Visit [facility] Provider Relations Inpatient, [place]on evans, Department [address] [place] [address] Social History Tobacco Use Types Packs/Day Years Used Date Never Assessed Sex Assigned at Date Recorded Male 09/05/2020 10:43 EDT documented as of this encounter Miscellaneous Notes Scanned Note-Null - Inpatient, MD Dex - 10/17/2009 0123 EST documented in this encounter Plan of Treatment Not on filedocumented as of this encounter Visit Diagnoses Not on filedocumented in this encounter Care Teams Reception Clerk Relationship Specialty Start Date End Date Rajani Garrett PCP - General 03/10/09 06/15/10 documented as of this encounter
--- OUTSIDE RECORDS SUMMARY | 2022-06-05 06:53 | XMS_ITS | Encounter Summary ---
:1990 Author Organization [facility] Address [address] [place] [address] Care Team Providers Name Role Phone Rajani Garrett Primary Care Provider Unavailable Encounter Details Date Type Department Care Team Description 04/07/2009 [facility] [address] [facility] [address] [place] [address] [place], [place] [phone] Social History Tobacco Use Types Packs/Day Years Used Date Never Assessed Sex Assigned at Date Recorded Male 09/05/2020 10:43 EDT documented as of this encounter Discharge Disposition Disposition Code Departure Means Destination Home or Self Prison documented in this encounter Plan of Treatment Not on filedocumented as of this encounter Procedures Procedure Name Priority Date/Time Associated Comments Diagnosis GROUP A STREP CULTURE Routine 09/13/2009 15:25 Re sults for this EDT procedure are i n the results section. ZZHEMOGLOBIN A1C Routine 08/11/2009 10:40 Results for this EDT procedure are i n the results section. GROUP A STREP CULTURE Routine 05/06/2009 16:22 Re sults for this EDT procedure are i n the results section. URINE Routine 04/07/2009 13:54 Results for this [id number]-OW-[id number] EDT proced ure are in RATIO (ACR) the results section. THYROID CASCADE Routine 04/07/2009 13:53 Results for this EDT procedure are i n the results section. COMPLETE BLOOD COUNT Routine 04/07/2009 13:53 Res ults for this AND DIFFERENTIAL EDT procedure a re in the results section. BUN Routine 04/07/2009 13:53 Results for this EDT procedure are i n the results section. GLUCOSE, SERUM Routine 04/07/2009 13:53 Results f or this EDT procedure are i n the results section. CREATININE Routine 04/07/2009 13:53 Results for this EDT procedure are i n the results section. ELECTROLYTES Routine 04/07/2009 13:53 Results for this EDT procedure are i n the results section. ZZHEMOGLOBIN A1C Routine 04/07/2009 11:15 Results for this EDT procedure are i n the results section. documented in this encounter Results CULTURE FOR GROUP A BETA STREPTOCOCCUS (09/13/2009 15:25 EDT) Specimen Throat [facility] Description LAB Result NO GROUP A BETA [facility] STREPTOCOCCI LAB ISOLATED Report Status Final [facility] 09/15/2009 LAB Specimen Other (qualifier value) Performing Organization Address [facility] Phon e Number [facility] [address] [place] [address] SERVICES [facility] [address] [place] [address] HEMOGLOBIN A1C (08/11/2009 10:40 EDT) Pathologist Sig nature POCT Hgb A1C 5.7 % [facility] Comment: Reference Range: <6% Normal Range ADA guidelines: The A1c goal for non adults in general is <7% The A1c goal for selected individual patients is as close to normal (<6%) as possible without significant hypoglycemia. Test Performed at [facility] Specimen Performing Organization Address [facility] Phon e Number [facility] [address] [place] [address] SERVICES [facility] [address] [place] [address] CULTURE FOR GROUP A BETA STREPTOCOCCUS (05/06/2009 16:22 EDT) Specimen Throat [facility] Description LAB Result NO GROUP A BETA [facility] STREPTOCOCCI LAB ISOLATED Report Status Final [facility] 05/08/2009 LAB Specimen Other (qualifier value) Performing Organization Address [facility] Phon e Number [facility] [address] [place] [address] SERVICES [facility] [address] [place] [address] MICROALBUMIN (04/07/2009 13:54 EDT) Creatinine, Urn 93.6 mg/dl [facility] [place] Ur Albumin mg/dl 0.2 mg/dl [facility] Ur Alb ug/mg Crea 2.1 ug/mg Crea [facility] Comment: Normal: ??<30 ug/mg Creat Microalbuminuria: ??30-300 ug/mg Creat Clinical albuminuria: ??>300 ug/mg Creat Specimen Urine (substance) Performing Organization Address [facility]/ZIP Code Phon e Number [facility] [address] [place] [address] SERVICES [facility] [address] [place] [address] CREATININE (04/07/2009 13:53 EDT) Pathologist Sig nature Creatinine 0.84 0.6 - 1.2 mg/dl [facility] GFR, Calculated Age <18 ml/min/1.73m2 [facility] Specimen Blood specimen (specimen) Performing Organization Address [facility] Phon e Number [facility] [address] [place] [address] SERVICES [facility] [address] [place] [address] BUN (04/07/2009 13:53 EDT) Pathologist Sig nature BUN 9 8 - 21 mg/dl [facility] Specimen Blood specimen (specimen) Performing Organization Address [facility]/ZIP [facility] Phon e Number [facility] [address] [place] [address] SERVICES [facility] [address] [place] [address] ELECTROLYTES (04/07/2009 13:53 EDT) Pathologist Sig nature Sodium 136 136 - 145 mEq/L [facility] Potassium 4.3 3.5 - 5.0 mEq/L [facility] Chloride 99 96 - 110 mEq/L [facility] CO2 26 24 - 32 mEq/L [facility] Specimen Blood specimen (specimen) Performing Organization Address [facility]/ZIP [facility] Phon e Number [facility] [address] [place] [address] SERVICES [facility] [address] [place] [address] HEMAGRAM AND DIFFERENTIAL (04/07/2009 13:53 EDT) Pathologist Sig nature WBC 6.70 4.6 - 11.2 K/cmm [facility] RBC 5.23 4.50 - 5.30 M/cmm [facility] Hemoglobin 15.4 13.0 - 16.0 gm/dl [facility] HCT 43.3 37.0 - 49.0 % [facility] MCV 83 78 - 98 fl [facility] MCH 29.4 pg [facility] MCHC 35.6 gm/dl [facility] PLT 274 156 - 312 K/cmm [facility] RDW-CV 14.1 % [facility] Neutrophils 48.5 % [facility] Lymphocytes 38.3 % [facility] Monocytes 8.0 % [facility] Eosinophils 4.8 % [facility] Basophils 0.4 % [facility] ABS Neutrophils 3.25 K/cmm [facility] ABS Lymphs 2.56 K/cmm [facility] ABS Monocytes 0.54 K/cmm [facility] ABS Eosinophils 0.32 K/cmm [facility] ABS Basophils 0.03 K/cmm [facility] Type of Diff: Automated [facility] Specimen Blood specimen (specimen) Performing Organization Address City/[facility]/ZIP Code Phon e Number [facility] [address] [place] [address] SERVICES [facility] [address] [place] [address] GLUCOSE, SERUM (04/07/2009 13:53 EDT) Pathologist Sig nature Glucose, Serum 79 70 - 100 mg/dl [facility] Specimen Blood specimen (specimen) Performing Organization Address City/[facility]/ZIP Code Phon e Number [facility] [address] [place] [address] SERVICES [facility] [address] [place] [address] THYROID CASCADE (04/07/2009 13:53 EDT) TSH 1.14 0.35 - 5.00 [facility] Comment: uIU/ml TSH cascade is not recommended for patients in which pituitary or hypothalamic disorders are suspected. Specimen Blood specimen (specimen) Performing Organization Address City/State/ZIP Code Phon e Number [facility] [address] [place] [address] SERVICES [facility] [address] [place] [address] HEMOGLOBIN A1C (04/07/2009 11:15 EDT) Pathologist Sig nature POCT Hgb A1C 5.8 % [facility] Comment: Reference Range: <6% Normal Range ADA guidelines: The A1c goal for non adults in general is <7% The A1c goal for selected individual patients is as close to normal (<6%) as possible without significant hypoglycemia. Test Performed at [facility] Specimen Performing Organization Address City/State/ZIP Code Phon e Number [facility] [address] [place] [address] SERVICES [facility] [address] [place] [address] documented in this encounter Visit Diagnoses Not on filedocumented in this encounter Care Teams Prosecuting Attorney Relationship Specialty Start Date End Date Rajani Garrett PCP - General 03/10/09 06/15/10 documented as of this encounter
--- OUTSIDE RECORDS SUMMARY | 2022-06-05 06:53 | XMS_ITS | Encounter Summary ---
:1990 Author Organization [facility] Address [address] [place] [address] Care Team Providers Name Role Phone Unavailable Primary Care Provider Unavailable Encounter Details Date Type Department Care Team Description 02/06/2007 Hospital Encounter [facility] - Devin [place] [phone] [place] [phone] (Wo rk) Social History Tobacco Use Types Packs/Day Years Used Date Never Assessed Sex Assigned at Date Recorded Male 09/05/2020 10:43 EDT documented as of this encounter Discharge Disposition Disposition Code Departure Means Destination Auto Discharge documented in this encounter Plan of Treatment Not on filedocumented as of this encounter Procedures Procedure Name Priority Date/Time Associated Diagnosis Comme nts GROUP A STREP Routine 02/06/2007 19:20 Results fo r this CULTURE EDT procedure are i n the results section. documented in this encounter Results PHARYNGITIS CULTURE (02/06/2007 19:20 EDT) Specimen Throat [facility] Description LAB Result NO GROUP A BETA [facility] STREPTOCOCCI LAB ISOLATED Report Status Final [facility] [id number] LAB Specimen Performing Organization Address City/State/ZIP Code Phon e Number [facility] [address] [place] [address] SERVICES [facility] [address] [place] [address] documented in this encounter Visit Diagnoses Not on filedocumented in this encounter
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
--- OUTSIDE RECORDS SUMMARY | 2022-06-05 06:53 | XMS_ITS | Encounter Summary ---
:1990 Author Organization [facility] Address [address] [place] [address] Care Team Providers Name Role Phone Ilan Kelly MD Primary Care Provider Rajani Garrett Primary Care Provider Unavailable Jazzy Ramos MD Primary Care Provider [phone] None, Provider Primary Care Provider Unavailable Jazzy Ramos MD Primary Care Provider [phone] Ilan Kelly MD Primary Care Provider Sixto Sandoval MD Unavailable Wolf Bethea MD MPH Primary Care Provider [phone] Rigo Leonardo MD Primary Care Provider Unknown, Provider Primary Care Provider None, Provider Primary Care Provider Unavailable Madi Monique MD Primary Care Provider None, Provider Primary Care Provider Unavailable Michael Sandoval MD Primary Care Provider [phone] Cristin Elizabeth NP Primary Care Provider Unavailable Michael Sandoval MD Primary Care Provider [phone] None, Provider Primary Care Provider Unavailable Mary Kate Mcduffie MD Primary Care Provider Beverly Mix MD Primary Care Provider Rogelio Dominguez MD Primary Care Provider Segel, Ivan LACE TEARING SUPERVISOR Primary Care Provider Encounter Details Date Type Department Care Team Description 10/20/2004 Hospital Encounter [facility] - Rajani Garrett [address] [address] Social History Tobacco Use Types Packs/Day Years [...] 35.0 to 39.9 with comorbidity ([facility] Note: Being Active Goal: Go for [...] documented as of this encounter Care Teams Tablet Coater Relationship Specialty Start Date End Date Ilan Kelly MD PCP - General 06/16/10 10/18/[address] [place] [phone] Rajani Garrett PCP - General 03/10/09 06/15/10 Jazzy Ramos MD PCP - General 10/19/10 12/27/[address] [place] [address] None, Provider PCP - General 12/28/10 01/18/11 Jazzy Ramos MD PCP - General 01/19/11 01/28/[address] [place] [address] Ilan Kelly MD PCP - General 01/29/11 03/18/[address] [place] [phone] Sixto Sandoval MD PCP - Alternate 01/05/13 12/25/[address] [place] [phone] Wolf Bethea MD PCP - General 03/19/1305/[address] [phone] Rigo Leonardo MD PCP - General 06/04/14 09/12/[address] [place] [phone] Unknown, MD Dao PCP - General 09/13/15 [...] General Family Medicine - 05/18/20 02/01/21 [address] [place] [address] Rogelio Dominguez MD PCP - General Family Medicine - 02/02/21 11/02/21 [address] [place] [address] Madi Cook NP PCP - General Family Medicine - 11/03/[address] [place] [phone] documented as of this encounter
--- OUTSIDE RECORDS SUMMARY | 2022-06-05 06:53 | XMS_ITS | Encounter Summary ---
:1990 Author Organization [facility] Address [address] [place] [address] Care Team Providers Name Role Phone Socrates Garrett Primary Care Provider Unavailable Encounter Details Date Type Department Care Team Description 10/10/2009 Hospital Encounter [facility] - Other Socrates Garrett [address] [place] [address] Social History Tobacco Use Types Packs/Day Years Used Date Never Assessed Sex Assigned at Date Recorded Male 09/05/2020 10:43 EDT documented as of this encounter Discharge Disposition Disposition Code Departure Means Destination Home or Self Care documented in this encounter Plan of Treatment Not on filedocumented as of this encounter Procedures Procedure Name Priority Date/Time Associated Comments Diagnosis ECHOCARDIOGRAM 10/28/2009 10:00 Results f or this EST procedure are i n the results section. COMPREHENSIVE METABOLIC Routine 10/10/2009 8:51 R esults for this PANEL ([facility]) EST procedure are i n the results section. MISCELLANEOUS TEST, Routine 10/10/2009 8:50 Resul ts for this [place] EST procedure are i n the results section. MULTIPLE DOC ORDERS Routine 10/10/2009 8:44 Resul ts for this EST procedure are i n the results section. COMPLETE BLOOD COUNT Routine 10/10/2009 8:44 Resu lts for this AND DIFFERENTIAL EST procedure a re in the results section. TSH Routine 10/10/2009 8:44 Results for this EST procedure are i n the results section. T4 FREE Routine 10/10/2009 8:44 Results for this EST procedure are i n the results section. VITAMIN B12 Routine 10/10/2009 8:44 Results for this EST procedure are i n the results section. CORTISOL Routine 10/10/2009 8:44 Results for this EST procedure are i n the results section. LIPID PROFILE (INCLUDES Routine 10/10/2009 8:44 R esults for this CHOLESTEROL, EST procedure are i n TRIGLYCERIDES, HDL, the resu lts LDL) section. COMPREHENSIVE METABOLIC Routine 10/10/2009 8:44 R esults for this PANEL (CMP) EST procedure are i n the results section. documented in this encounter Results ECHOCARDIOGRAM (10/28/2009 10:00 EST) Specimen Narrative CARDIOLOGY - 10/31/2009 14:18 EST Patient Name: KASIE LLAMAS Chart Number: [id number] Site Location: Date of Appt: Wednesday, October 28, 2009, 10:00 AM Pediatric Echocardiogram Report Demographics and Visit Data: : 1990. ??Age: 19y/7m/6d. ??BSA ( m 2): 2.54. ??Height (cm): 172.6. ?? Weight (kg): 128. ??BMI (kg/m 2): 42.97. ??Patient location: [facility]. ?? Height Centile: 26.09. ??Weight Centile: 99.8. ??Person requesting test: SOCRATES WILLINGHAM. ?? Central Office Repairer Supervisor: Yee Rollins. ??Reason for test: color/pulse Doppler. ?? Referral diagnosis: CP. ??Procedure Desc ription: ECHOCARDIOGRAM. ?? Summary: Normal atrioventricular and ventriculoar terial concordance. Normal cardiac anatomy and performance. Atrial Situs: Solitus Ventricular Situs: D - Looped Arterial Situs: Solitus Findings: ?? Veins and Atria: ?? >> Normal Left Atrium >> Normal Right Atrium >> Normal Pulmonary venous connections >> Normal Systemic Veins >> Intact Atrial Septum ?? A-V Canal: ?? >> Normal Tricuspid Valve >> Normal Mitral Valve ?? Ventricles: ?? >> Normal Right Ventricle >> Normal Left Ventricle -with satisfactory biventricular perform ance, and no outflow obstruction or abnormal hypertrophy. ?? >> Intact Ventricular Septum ?? Conotruncus: ?? >> Normal Pulmonary Valve >> Normal Aortic Valve -trileaflet. ? Great Arteries: ?? >> Left aortic arch -unobstructed. ?? >> Patent ductus arteriosus, ruled out >> Normal Proximal Coronary Arteries ?? Pericardium: ?? (No abnormalities seen) ?? Measures: ?? Systemic Arterial Function: ?? Name ? Value ?Units ?Z-Score ?Min ?Max ?? Systolic BP ? 115 ?mmH g ? 0.02 ?95.35 ?? 134.31 ?? Diastolic BP ? 80 ? mmH g ? 2.19 ?41.95 ?? 78. ?? Pulse Pressure ? 35.00 ?mmHg ? Mean BP ? 91.7 ? mmHg ? 0.86 ?65.68 ?? 101.89 ? M-Mode: ?? Name ? Value ?Units ?Z-Score ?Min ?Max ?? LV Diastolic Septal Thickness ? 1.21 ? cm ? 0.07 ?0.87 ?1.65 ?? LV Diastolic Dimension ? 5.05 ? cm ? -1.98 ? 5.05 ?6.99 ?? LV Diastolic Wall Thickness ? 1.04 ? cm ? -0.7 ?0.88 ?1.47 ?? LV Systolic Dimension ? 3.11 ? cm ? -2.53 ? 3.3 ? 4.97 ?? LV Fractional Shortening ? 38.42 ?% ?2.3 ? 27.91 ?? 37.6 ? LV Systolic Function: ?? Name ? Value ?Units ?Z-Score ?Min ?Max ?? Endocardial FS ? 38.42 ?% ?2.3 ? 27.91 ?? 37.6 ?? FS Vs Stress ? 38.42 ?% ? Cardiac Geometry: ?? Name ? Value ?Units ?Z-Score ?Min ?Max ?? M-Mode LV Mass ? 217.11 ? g ?-1.3 ?189.8 ?? 419.37 ?? M-Mode LV Mass Index ? 85.48 ?g/m 2 ? LV Midwall Diastolic Dimension ? 6.09 ? cm ? M-Mode LV Mass / Height ? 125.79 ? g/m ? M-Mode LV Mass / Height 2.7 ? 49.74 ?g/m ?19.4 ?38.6 ? Aorta: ?? Name ? Value ?Units ?Z-Score ?Min ?Max ?? Ao Annulus Diameter ? 2.26 ? cm ? -0.86 ? 2.07 ?2.75 ?? Ao Root Diameter ? 2.83 ? cm ? -1.2 ?2.62 ?3.69 ?? AV Area (using Diameter) ? 4.01 ? cm 2 ? Sinotubular Junction Diameter ? 2.57 ? cm ? -0.35 ? 2.22 ?3.07 ?? Ascending Ao Diameter ? 2.73 ? cm ? -0.19 ? 2.32 ?3.23 ? Analysis Aortic Valve Doppler: ?? Name ? Value ?Units ?? AV Area (using Diameter) ? 4.01 ? cm 2 ? Goodridge's Name: JESSICA LANDRUM MD Date/time of reading: Oct 31 2009 - 2:16:47 PM Report created at 2:18:25 PM on Saturday, October 31, 2009 Procedure Note 10/31/2009 Patient Name: KASIE LLAMAS Chart Number: [id number] Site Location: Date of Appt: Wednesday, October 28, 2009, 10:00 AM Pediatric Echocardiogram Report Demographics and Visit Data: : 1990. Age: 19y/7m/6d. BSA (m 2) : 2.54. Height (cm): 172.6. Weight (kg): 128. BMI (kg/m 2): 42.97. P atient location: [facility]. Height Centile: 26.09. Weight Centile: 9 9.8. Person requesting test: RITTER MAK,SOCRATES MURRAY. Central Office Repairer Supervisor: Yee Rollins. Reason for te st: color/pulse Doppler. Referral diagnosis: CP. Procedure Descri ption: ECHOCARDIOGRAM. Summary: Normal atrioventricular and ventriculoar terial concordance. Normal cardiac anatomy and performance. Atrial Situs: Solitus Ventricular Situs: D - Looped Arterial Situs: Solitus Findings: Veins and Atria: >> Normal Left Atrium >> Normal Right Atrium >> Normal Pulmonary venous connections >> Normal Systemic Veins >> Intact Atrial Septum A-V Canal: >> Normal Tricuspid Valve >> Normal Mitral Valve Ventricles: >> Normal Right Ventricle >> Normal Left Ventricle -with satisfactory biventricular perform ance, and no outflow obstruction or abnormal hypertrophy. >> Intact Ventricular Septum Conotruncus: >> Normal Pulmonary Valve >> Normal Aortic Valve -trileaflet. Great Arteries: >> Left aortic arch -unobstructed. >> Patent ductus arteriosus, ruled out >> Normal Proximal Coronary Arteries Pericardium: (No abnormalities seen) Measures: Systemic Arterial Function: Name Value Units Z-Score Min Max Systolic BP 115 mmHg 0.02 95.35 134.31 Diastolic BP 80 mmHg 2.19 41.95 78. Pulse Pressure 35.00 mmHg Mean BP 91.7 mmHg 0.86 65.68 101.89 M-Mode: Name Value Units Z-Score Min Max LV Diastolic Septal Thickness 1.21 cm 0.07 0.87 1.65 LV Diastolic Dimension 5.05 cm -1.98 5.05 6.99 LV Diastolic Wall Thickness 1.04 cm -0.7 0.88 1.47 LV Systolic Dimension 3.11 cm -2.53 3.3 4.97 LV Fractional Shortening 38.42 % 2.3 27.91 37.6 LV Systolic Function: Name Value Units Z-Score Min Max Endocardial FS 38.42 % 2.3 27.91 37.6 FS Vs Stress 38.42 % Cardiac Geometry: Name Value Units Z-Score Min Max M-Mode LV Mass 217.11 g -1.3 189.8 419.37 M-Mode LV Mass Index 85.48 g/m 2 LV Midwall Diastolic Dimension 6.09 cm M-Mode LV Mass / Height 125.79 g/m M-Mode LV Mass / Height 2.7 49.74 g/m 19.4 38.6 Aorta: Name Value Units Z-Score Min Max Ao Annulus Diameter 2.26 cm -0.86 2.07 2.75 Ao Root Diameter 2.83 cm -1.2 2.62 3.69 AV Area (using Diameter) 4.01 cm 2 Sinotubular Junction Diameter 2.57 cm -0.35 2.22 3.07 Ascending Ao Diameter 2.73 cm -0.19 2.32 3.23 Analysis Aortic Valve Doppler: Name Value Units AV Area (using Diameter) 4.01 cm 2 Goodridge's Name: JESSICA LANDRUM MD Date/time of reading: Oct 31 2009 - 2:16:47 PM Report created at 2:18:25 PM on Saturday, October 31, 2009 Performing Organization Address City/State/ZIP Code Phon e Number [facility] COMPREHENSIVE METABOLIC PANEL (10/10/2009 8:51 EST) Potassium Duplicate Test 3.5 - 5.0 [facility] RequestComment: mEq/L LAB 2DOCS Sodium Duplicate Test 136 - 145 [facility] RequestComment: mEq/L LAB 2DOCS Chloride Duplicate Test 96 - 110 [facility] RequestComment: mEq/L LAB 2DOCS CO2 Duplicate Test 24 - 32 mEq/L [facility] RequestComment: LAB 2DOCS Alkaline Duplicate Test 65 - 260 U/L [facility] Phosphatase RequestComment: LAB 2DOCS Bilirubin, Total Duplicate Test 0.0 - 1.4 [facility] RequestComment: mg/dl LAB 2DOCS AST Duplicate Test 15 - 46 U/L [facility] RequestComment: LAB 2DOCS ALT Duplicate Test 0 - 45 U/L [facility] RequestComment: LAB 2DOCS Albumin Duplicate Test 3.0 - 5.5 [facility] RequestComment: g/dl LAB 2DOCS Total Protein Duplicate Test 6.3 - 8.6 [facility] RequestComment: g/dl LAB 2DOCS Creatinine Duplicate Test 0.6 - 1.2 [facility] RequestComment: mg/dl LAB 2DOCS GFR, Calculated Duplicate Test ml/min/1.73m2 [facility] RequestComment: LAB 2DOCS BUN Duplicate Test 8 - 21 mg/dl [facility] RequestComment: LAB 2DOCS Calcium Duplicate Test 8.5 - 10.5 [facility] RequestComment: mg/dl LAB 2DOCS Calculated Calcium Duplicate Test 8.5 - 10.5 [facility] RequestComment: mg/dl LAB 2DOCS Glucose, Serum Duplicate Test 70 - 100 [facility] RequestComment: mg/dl LAB 2DOCS Fasting? No [facility] Specimen Blood specimen (specimen) Performing Organization Address City/State/ZIP Code Phon e Number [facility] [address] [place] [address] SERVICES [facility] [address] [place] [address] MISCELLANEOUS TEST (10/10/2009 8:50 EST) Test Name Leptin [facility] Result 29 ng/ml [facility] Reference Ranges: [facility] STEVEN Adults (BMI = 22) ? Males: 0.7-5.3 ? Females: 3.3-18.3 ? Contact laboratory for other BMI reference ranges. ? Ref Lab Test performed by [facility] [place], [place] Specimen Other (qualifier value) Performing Organization Address City/[facility]/ZIP [facility] Phon e Number [facility] [address] [place] [address] SERVICES [facility] [address] [place] [address] MULTIPLE DOC ORDERS (10/10/2009 8:44 EST) [facility] Multiple Doc This report contains lab results ordered [facility] Orders by another provider which were collected and LAB processed simultaneously with the orders you requested. If you have any questions, please call Customer Service at [phone]. Specimen Performing Organization Address [facility]/ZIP Code Phon e Number [facility] [address] [place] [address] SERVICES [facility] [address] [place] [address] VITAMIN B12 (10/10/2009 8:44 EST) Pathologist Sig nature Vitamin B-12 472 250 - 1100 pg/ml [facility] Specimen Blood specimen (specimen) Performing Organization Address City/[facility] Phon e Number [facility] [address] [place] [address] SERVICES [facility] [address] [place] [address] HEMAGRAM AND DIFFERENTIAL (10/10/2009 8:44 EST) Pathologist Sig nature WBC 8.09 4.6 - 11.2 K/cmm [facility] RBC 5.29 4.50 - 5.30 M/cmm [facility] Hemoglobin 15.9 13.0 - 16.0 gm/dl [facility] HCT 45.4 37.0 - 49.0 % [facility] MCV 86 78 - 98 fl [facility] MCH 30.0 pg [facility] MCHC 35.0 gm/dl [facility] PLT 225 156 - 312 K/cmm [facility] RDW-CV 14.2 % [facility] Neutrophils 59.7 % [facility] Lymphocytes 29.8 % [facility] Monocytes 7.4 % [facility] Eosinophils 2.8 % [facility] Basophils 0.3 % [facility] ABS Neutrophils 4.83 K/cmm [facility] ABS Lymphs 2.41 K/cmm [facility] ABS Monocytes 0.60 K/cmm [facility] ABS Eosinophils 0.22 K/cmm [facility] ABS Basophils 0.03 K/cmm [facility] Type of Diff: Automated [facility] Specimen Blood specimen (specimen) Performing Organization Address City/[facility] Phon e Number [facility] [address] [place] [address] SERVICES [facility] [address] [place] [address] (ABNORMAL) COMPREHENSIVE METABOLIC PANEL (10/10/2009 8:44 EST) Pathologist Sig nature Potassium 4.5 3.5 - 5.0 mEq/L [facility] Sodium 136 136 - 145 mEq/L [facility] Chloride 102 96 - 110 mEq/L [facility] CO2 23 (L) 24 - 32 mEq/L [facility] Alkaline Phosphatase 108 65 - 260 U/L [facility] Bilirubin, Total <0.5 0.0 - 1.4 mg/dl [facility] AST 44 15 - 46 U/L [facility] ALT 64 (H) 0 - 45 U/L [facility] Albumin 4.9 3.0 - 5.5 g/dl [facility] Total Protein 8.2 6.3 - 8.6 g/dl [facility] Creatinine 0.84 0.6 - 1.2 mg/dl [facility] GFR, Calculated Age <18 ml/min/1.73m2 [facility] BUN 10 8 - 21 mg/dl [facility] Calcium 9.8 8.5 - 10.5 mg/dl [facility] Calculated Calcium 9.3 8.5 - 10.5 mg/dl [facility] Glucose, Serum 83 70 - 100 mg/dl [facility] Fasting? Yes [facility] Specimen Blood specimen (specimen) Performing Organization Address City/[facility] Phon e Number [facility] [address] [place] [address] SERVICES [facility] [address] [place] [address] CORTISOL (10/10/2009 8:44 EST) Pathologist Sig nature Cortisol <1 ug/dl [facility] Comment: 7-9a.m.=4.3-22.4 3-5p.m.=3.1-16.7 Specimen Blood specimen (specimen) Performing Organization Address [facility]/ZIP [facility] Phon e Number [facility] [address] [place] [address] SERVICES [facility] [address] [place] [address] (ABNORMAL) LIPID PROFILE (INCLUDES CHOLESTEROL, TRIGLYCERIDES, HDL, LDL) (10/10/2009 8:44 EST) Cholesterol 215 mg/dl [facility] Comment: LAB Desirable:<200 Borderline High:200-239 High:>ez=535 Triglycerides 223 (H) 34 - 140 mg/dl [facility] HDL 44 mg/dl [facility] Comment: LAB Low:<40 High(Desirable):>or=60 LDL, Calculated 126 mg/dl [facility] Comment: LAB Optimal:<100 Above optimal:100-129 Borderline High:130-159 High:160-189 Very High:>pj=930 Chol/HDL Ratio 4.9 [facility] Fasting? Yes [facility] Specimen Blood specimen (specimen) Performing Organization Address [facility] Phon e Number [facility] [address] [place] [address] SERVICES [facility] [address] [place] [address] T4 FREE (10/10/2009 8:44 EST) Pathologist Sig nature Free T4 1.0 0.8 - 1.5 ng/dL [facility] Specimen Blood specimen (specimen) Performing Organization Address [facility] Phon e Number [facility] [address] [place] [address] SERVICES [facility] [address] [place] [address] TSH (10/10/2009 8:44 EST) Pathologist Sig nature TSH 0.94 0.35 - 5.00 uIU/ml [facility] Specimen Blood specimen (specimen) Performing Organization Address [facility] Phon e Number [facility] [address] [place] [address] SERVICES [facility] [address] [place] [address] documented in this encounter Visit Diagnoses Not on filedocumented in this encounter Care Teams In Flight Refueling System Repairer Relationship Specialty Start Date End Date Socrates Garrett PCP - General 03/10/09 06/15/10 documented as of this encounter
--- OUTSIDE RECORDS SUMMARY | 2022-06-05 06:53 | XMS_ITS | Encounter Summary ---
:1990 Author Organization [facility] Address [address] [place] [address] Care Team Providers Name Role Phone Unavailable Primary Care Provider Unavailable Encounter Details Date Type Department Care Team Description 09/24/2006 Hospital Encounter [facility] alas, Tor Phan MD [address] [place] [phone] [place] Unknown, Provider, [address] [place] [id number] Social History Tobacco Use Types Packs/Day Years Used Date Never Assessed Sex Assigned at Date Recorded Male 09/05/2020 10:43 EDT documented as of this encounter Discharge Disposition Disposition Code Departure Means Destination Auto Discharge documented in this encounter Plan of Treatment Not on filedocumented as of this encounter Visit Diagnoses Not on filedocumented in this encounter
--- OUTSIDE RECORDS SUMMARY | 2022-06-05 06:53 | XMS_ITS | Encounter Summary ---
:1990 Author Organization [facility] Address [address] [place] [address] Care Team Providers Name Role Phone Ilan Kelly MD Primary Care Provider Rajani Garrett Primary Care Provider Unavailable Jazzy Ramos MD Primary Care Provider [phone] None, Provider Primary Care Provider Unavailable Jazzy Ramos MD Primary Care Provider [phone] Ilan Kelly MD Primary Care Provider Sixto Sandoval MD Unavailable Wolf Bethea MD MPH Primary Care Provider [phone] Rigo Leonardo MD Primary Care Provider Unknown, Provider Primary Care Provider None, Provider Primary Care Provider Unavailable Madi Monique MD Primary Care Provider None, Provider Primary Care Provider Unavailable Michael Sandoval MD Primary Care Provider [phone] Cristin Elizabeth NP Primary Care Provider Unavailable Michael Sandoval MD Primary Care Provider [phone] None, Provider Primary Care Provider Unavailable Mary Kate Mcduffie MD Primary Care Provider Beverly Mix MD Primary Care Provider Rogelio Dominguez MD Primary Care Provider Segel, Ivan COOK MANAGER Primary Care Provider Encounter Details Date Type Department Care Team Description 10/31/2006 Hospital Encounter [facility] - Rajani Garrett [address] [address] Social History Tobacco Use Types Packs/Day Years [...] 35.0 to 39.9 with comorbidity ([facility]) Note: Being Active Goal: Go for a walk 4 times per week for 20 minutes. The patient's confidence level, sources of support and barriers to change were assessed. Pertinent information is documented in the visit encounter. Counseling was provided to assess readiness, confidence and/or barriers to self-care. To learn more about your health please v isit: [facility] Wellness Resource documented as of this encounter Visit Diagnoses Not on filedocumented in this encounter Additional Health Concerns Infection Onset Date Last Indicated Resolved Time R/O COVID-19 08/18/2020 08/18/2020 08/23/2020 22:16 EDT R/O COVID-19 02/27/2021 02/27/2021 03/04/2021 22:15 EDT COVID-19 02/27/2021 02/27/2021 03/29/2021 22:15 EDT documented as of this encounter Care Teams Corporate Auditor Relationship Specialty Start Date End Date Ilan Kelly MD PCP - General 06/16/10 10/18/[address] [place] [phone] Rajani Garrett PCP - General 03/10/09 06/15/10 Jazzy Ramos MD PCP - General 10/19/10 12/27/[address] [place] [address] None, Provider PCP - General 12/28/10 01/18/11 Jazzy Ramos MD PCP - General 01/19/11 01/28/[address] [place] [address] Ilan Kelly MD PCP - General 01/29/11 03/18/[address] [place] [phone] Sixto Sandoval MD PCP - Alternate 01/05/13 12/25/[address] [place] [phone] Wolf Bethea MD PCP - General 03/19/1305/[address] [address] Rigo Leonardo MD PCP - General 06/04/14 09/12/[address] [place] [phone] Unknown, MD Dao PCP - General 09/13/15 [...] General Family Medicine - 05/18/20 02/01/21 [address] [place] [address] Rogelio Dominguez MD PCP - General Family Medicine - 02/02/21 11/02/21 [address] [place] [address] Madi Cook NP PCP - General Family Medicine - 11/03/[address] [place] [phone] documented as of this encounter
--- OUTSIDE RECORDS SUMMARY | 2022-06-05 06:53 | XMS_ITS | Encounter Summary ---
:1990 Author Organization [facility] Address [address] [place] [address] Care Team Providers Name Role Phone Ilan Kelly MD Primary Care Provider Rajani Garrett Primary Care Provider Unavailable Jazzy Ramos MD Primary Care Provider [phone] None, Provider Primary Care Provider Unavailable Jazzy Ramos MD Primary Care Provider [phone] Ilan Kelly MD Primary Care Provider Sixto Sandoval MD Unavailable Wolf Bethea MD MPH Primary Care Provider [phone] Rigo Leonardo MD Primary Care Provider Unknown, Provider Primary Care Provider None, Provider Primary Care Provider Unavailable Madi Monique MD Primary Care Provider None, Provider Primary Care Provider Unavailable Michael Sandoval MD Primary Care Provider [phone] Cristin Elizabeth NP Primary Care Provider Unavailable Michael Sandoval MD Primary Care Provider None, Provider Primary Care Provider Unavailable Mary Kate Mcduffie MD Primary Care Provider Beverly Mix MD Primary Care Provider Rogelio Dominguez MD Primary Care Provider Segel, Ivan REHABILITATION ATTENDANT Primary Care Provider Encounter Details Date Type Department Care Team Description 09/10/2006 [facility] Maple conversion MD [address] [place] [address] Social History Tobacco Use Types Packs/Day Years [...] to 39.9 with comorbidity ([facility]) Note: Being Active Goal: Go for a walk 4 times per week for 20 minutes. The patient's confidence level, sources of support and barriers to change were assessed. Pertinent information is documented in the visit encounter. Counseling was provided to assess readiness, confidence and/or barriers to self-care. To learn more about your health please v isit: [facility] Wellness Resource documented as of this encounter Visit Diagnoses Not on filedocumented in this encounter Additional Health Concerns Infection Onset Date Last Indicated Resolved Time R/O COVID-19 08/18/2020 08/18/2020 08/23/2020 22:16 EDT R/O COVID-19 02/27/2021 02/27/2021 03/04/2021 22:15 EDT COVID-19 02/27/2021 02/27/2021 03/29/2021 22:15 EDT documented as of this encounter Care Teams [employer] Craft Crewman Relationship Specialty Start Date End Date Ilan Kelly MD PCP - General 06/16/10 10/18/[address] [place] [phone] Davidroxanna Amber PCP - General 03/10/09 06/15/10 Jazzy Ramos MD PCP - General 10/19/10 12/27/[address] [place] [address] None, Provider PCP - General 12/28/10 01/18/11 Jazzy Ramos MD PCP - General 01/19/11 01/28/[address] [place] [address] Ilan Kelly MD PCP - General 01/29/11 03/18/[address] [place] [phone] Sixto Sandoval MD PCP - Alternate 01/05/13 12/25/[address] [place] [phone] Wolf Bethea MD PCP - General 03/19/1305/[address] [place] [phone] Rigo Leonardo MD PCP - General 06/04/14 09/12/[address] [place] [phone] Unknown, ProviderMD PCP - General 09/13/15 01/26/17 [...] General Family Medicine - 05/18/20 02/01/21 [address] [place] [address] Rogelio Dominguez MD PCP - General Family Medicine - 02/02/21 11/02/21 [address] [place] [address] Madi Cook NP PCP - General Family Medicine - 11/03/[address] [place] [phone] documented as of this encounter
--- OUTSIDE RECORDS SUMMARY | 2022-06-05 06:53 | XMS_ITS | Encounter Summary ---
:1990 Author Organization [facility] Address [address] [place] [address] Care Team Providers Name Role Phone Ilan Kelly MD Primary Care Provider Rajani Garrett Primary Care Provider Unavailable Encounter Details Date Type Department Care Team Description 10/20/2004 Results Only [facility] Rajani Garrett Pediatric Primary Care - [address] [address] Social History Tobacco Use Types Packs/Day Years Used Date Never Assessed Sex Assigned at Date Recorded Male 09/05/2020 10:43 EDT documented as of this encounter Plan of Treatment Not on filedocumented as of this encounter Procedures Procedure Name Priority Date/Time Associated Diagnosis Comme nts INSULIN Routine 10/20/2004 8:09 EST Results for this procedure are i n the results section. GLUCOSE WITH CF Routine 10/20/2004 8:07 EST Resul ts for this MODIFIER - DIALYSIS procedur e are in USE ONLY the results section. TSH Routine 10/20/2004 8:07 EST Results for this procedure are i n the results section. T4 FREE Routine 10/20/2004 8:07 EST Results for this procedure are i n the results section. LIPID PROFILE Routine 10/20/2004 8:07 EST Results for this (INCLUDES procedure are i n CHOLESTEROL, the results TRIGLYCERIDES, HDL, section. LDL) documented in this encounter Results INSULIN (10/20/2004 8:09 EST) Pathologist Sig nature Insulin 24.2 6.0 - 27.0 [facility] Comment: uIU/ml Fasting reference range FASTING Specimen Performing Organization Address City/State/ZIP Code Phon e Number [facility] [address] [place] [address] SERVICES [facility] [address] [place] [address] TSH (10/20/2004 8:07 EST) Pathologist Sig nature TSH 2.84 0.50 - 5.00 uIU/ml [facility] Specimen Performing Organization Address [facility]/[place] [facility] [place] Number [facility] [address] [place] [address] SERVICES [facility] [address] [place] [address] GLUCOSE WITH CF MODIFIER - DIALYSIS USE ONLY (10/20/2004 8:07 EST) Glucose, Serum 94Comment: 70 - 110 mg/dl [facility] FASTING Specimen Performing Organization Address [facility] Phon e Number [facility] [address] [place] [address] SERVICES [facility] [address] [place] [address] (ABNORMAL) LIPID PROFILE (INCLUDES CHOLESTEROL, TRIGLYCERIDES, HDL, LDL) (10/20/2004 8:07 EST) Cholesterol 205 mg/dl [facility] Comment: Desirable:<200 Borderline:200-239 High Risk:>ec=646 FASTING Triglycerides 152 (H)Comment: 34 - 145 mg/dl [facility] FASTING HDL 46 mg/dl [facility] Comment: Highly Desirable:>60 Desirable:35-60 High Risk:<35 FASTING LDL, Calculated 129 mg/dl [facility] Comment: Desirable:<130 Borderline:130-159 High Risk:>wr=814 FASTING Chol/HDL Ratio 4.5 [facility] FASTING Specimen Performing Organization Address [facility] Phon e Number [facility] [address] [place] [address] SERVICES [facility] [address] [place] [address] T4 FREE (10/20/2004 8:07 EST) Pathologist Sig nature Free T4 1.2 0.8 - 1.8 ng/dl [facility] Specimen Performing Organization Address [facility] Phon e Number [facility] [address] [place] [address] SERVICES [facility] [address] [place] [address] documented in this encounter Visit Diagnoses Not on filedocumented in this encounter Care Teams Children Librarian Relationship Specialty Start Date End Date Ilan Kelly MD PCP - General 06/16/10 10/18/10 1 [facility] [address] [place] [phone] Rajani Garrett PCP - General 03/10/09 06/15/10 documented as of this encounter
--- OUTSIDE RECORDS SUMMARY | 2022-06-05 06:53 | XMS_ITS | Encounter Summary ---
:1990 Author Organization [facility] Address [address] [place] [address] Care Team Providers Name Role Phone Rajani Garrett Primary Care Provider Unavailable Encounter Details Date Type Department Care Team Description 12/21/2009 Abstract Used for ABSTRACTING Rajani Garrett RAD (reactive airway disease); Data Other activity; [phone] Obesity; Acanthosis nigr icans; Depression; Hypertension Social History Tobacco Use Types Packs/Day Years Used Date Never Assessed Sex Assigned at Date Recorded Male 09/05/2020 10:43 EDT documented as of this encounter Plan of Treatment Not on filedocumented as of this encounter Visit Diagnoses Diagnosis RAD (reactive airway disease) Unspecified asthma Other activity(E029.9) Other activity Obesity Obesity, unspecified Acanthosis nigricans Acquired acanthosis nigricans Depression Depressive disorder, not elsewhere class ified Hypertension Unspecified essential hypertension documented in this encounter Care Teams Shoe Reconditioner Relationship Specialty Start Date End Date Rajani Garrett PCP - General 03/10/09 06/15/10 documented as of this encounter
--- OUTSIDE RECORDS SUMMARY | 2022-06-05 06:53 | XMS_ITS | Encounter Summary ---
:1990 Author Organization [facility] Address [address] [place] [address] Care Team Providers Name Role Phone Socrates Reeves Primary Care Provider Unavailable Reason for Visit Reason Comments Chest Pain Pt c/o intermittent chest pa in associated with feeling dizzy. Mother reports pt had a BP of 170/1 08 a couple hours ago. Encounter Details Date Type Department Care Team Description 10/16/2009 Emergency [facility] Candie Wang PA V bcigo, Benign Positional; Emergency Department - Emergency, MD Pedro Pablo Hypoglycemia; Main [place] Chest Pain [address] [place], [place] [id number] Social History Tobacco Use Types Packs/Day Years Used Date Never Assessed Sex Assigned at Date Recorded Male 09/05/2020 10:43 EDT documented as of this encounter Last Filed Vital Signs Vital Sign Reading Time Taken Comments Blood Pressure 113/72 10/16/2009 1749 EST Pulse 98 10/16/2009 1749 EST Temperature 36.8 ??C (98.2 ??F) 10/16/2009 1749 EST Respiratory Rate 18 10/16/2009 1749 EST Oxygen Saturation 96% 10/16/2009 1749 EST Inhaled Oxygen Concentration - - Weight - - Height - - Body Mass Index - - documented in this encounter Discharge Instructions InstructionsCandie Wang PA - 10/16/2009 Images from the original note were not included. [facility] Patient Instructions Chest Pain: After Your Visit to the Emergency Room Your Care Instructions There are many things that can cause chest pain. Some are not serious and will get better on their own in a few days. But some kinds of chest pain need more testing and treatment. Your doctor may have recommended a follow-up visit in the next 8 to 12 hours. If you are not getting better, you may need more tests or treatment. Even though you have been released from the emergency room, you still need to watch for any problems. The doctor carefully checked you. But sometimes problems can develop later. If you have new symptoms, or if your symptoms do not get better, return to the emergency room or call your doctor right away. If you have worse or different chest pain or pressure that lasts more than 5 minutes or you pass out(lose consciousness), call 911 or seek other emergency help right away. A visit to the emergency room is only one step in your treatment. Even if you feel better, you stillneed to do what your doctor recommends, such as going to all suggested follow-up appointments and taking medicines exactly as directed. This will help you recover and help prevent future problems. How can you care for yourself at home? ?? Rest until you feel better. Take your medicine exactly as prescribed. Call your doctor if you think you are having a problem with your medicine. Do not drive after taking a prescription pain medicine. When should you call for help? Call 911 if: ?? You pass out (lose consciousness). You have sudden shortness of breath with chest pain, or you cough up blood. You have worse or different chest pain or pressure that lasts more than 5 minutes, along with: ?? Sweating. Shortness of breath. Nausea or vomiting. Pain that spreads from the chest to the neck, jaw, or one or both shoulders or arms. Dizziness or lightheadedness. A fast, slow, or uneven pulse. After calling 911, chew one adult-strength aspirin. If an ambulance is not an option, have someone drive you to the hospital. Do NOT try to drive yourself. ?? You have other symptoms that you think are a medical emergency. Return to the emergency room now if: ?? You have any trouble breathing. Your chest pain gets worse. You are dizzy or lightheaded, or you feel like you may faint. Call your doctor today if: ?? Your chest pain does not get better. Your chest pain happens when you exercise and goes away when you rest. Where can you learn more? Go to www.SoundHoundwise.net/fahc Enter A120 in the search box to learn more about Chest Pain: After Your Visit to the Emergency Room. ?? 2005 - 2008 [employer]. Care instructions adapted under license by [facility], Inc . This care instruction is for use with your licensed healthcare professional. If youhave questions about a medical condition or this instruction, always ask your healthcare professional. [employer] disclaims any warranty or liability for your use of this information. [facility] Patient Instructions Hypoglycemia: After Your Visit Your Care Instructions Hypoglycemia means that your blood sugar is low and your body is not getting enough fuel. Some people get low blood sugar from not eating often enough. Some medicines to treat diabetes can cause low blood sugar. People who have had surgery on their stomachs or intestines may get hypoglycemia. Problemswith the pancreas, kidneys, or liver also can cause low blood sugar. A snack or drink with sugar in it will raise your blood sugar and should ease your symptoms right away. Your doctor may recommend that you change or stop your medicines until you can get your blood sugar levels under control. In the long run, you may need to change your diet and eating habits so that youget enough fuel for your body throughout the day. Follow-up care is a eugene part of your treatment and safety. Be sure to make and go to all appointments, and call your doctor if you are having problems. It???s also a good idea to know your test resultsand keep a list of the medicines you take. How can you care for yourself at home? ?? Learn to recognize the early signs of low blood sugar. Signs include: ?? Nausea. Hunger. Feeling nervous, irritable, or shaky. Cold, clammy, wet skin. Sweating (when you are not exercising). A fast heartbeat. Confusion. ?? If you feel an episode of low blood sugar coming on, drink fruit juice or sugared (not diet) soda, or eat sugar in the form of candy, cubes, or tablets. Raisins are another quick-sugar food. Eat small, frequent meals so that you do not get too hungry between meals. Balance extra exercise with eating more. Keep a written record of your low blood sugar episodes, including when you last ate and what you ate, so that you can learn what causes your blood sugar to drop. Make sure your family, friends, and coworkers know the symptoms of low blood sugar and know what to do to get your sugar level up. Wear medical alert jewelry that lists your condition. You can buy this at most drugstores. When should you call for help? Call 911 anytime you think you may need emergency care. For example, call if: ?? You have a seizure. You passed out (lost consciousness). You have symptoms of low blood sugar that do not get better after you eat or drink something with sugar in it. You feel confused or have trouble thinking. Call your doctor now or seek immediate medical care if: ?? Your vision gets blurry, you feel dizzy, or you get a headache. You feel weak or drowsy. You have trouble standing, walking, or talking. Watch closely for changes in your health, and be sure to contact your doctor if: ?? Your symptoms continue or return. Where can you learn more? Go to www.[employer].net/fahc Enter R955 in the search box to learn more about Hypoglycemia: After Your Visit. ?? 2005 - 2008 [employer]. Care instructions adapted under license by [facility], [facility] . This care instruction is for use with your licensed healthcare professional. If youhave questions about a medical condition or this instruction, always ask your healthcare professional. [employer] disclaims any warranty or liability for your use of this information. AttachmentsThe following attachments cannot be sent through [facility] Everywhere. DIZZINESS: AFTER YOUR VISIT (CYPRIOT)documented in this encounter Medications at Time of [...] or Self Care documented in this encounter Procedure Notes Inpatient, MD Dex - 10/21/2009 1356 ESTAssociated Order(s): ECG REPORT - SCANNED; ECG REPORT - SCANNED documented in this encounter ED Notes Candie Wang PA - 10/16/2009 5948 EST DOS: 10/16/2009 Chief Complaint Patient presents with ??? Chest Pain Pt c/o intermittent chest pain associated with feeling dizzy. Mother reports pt had a BP of 170/108a couple hours ago. Patient is a 19 y.o. male presenting with chest pain and dizziness. The history is provided by the patient and a parent (pt sitting in hot room playing cards. was sweating and had achy right lateral chest pain. pt leaned head backward and became dizzy. pt was tremulous and felt like he had trouble speaking. pt ate pb &j sandwich and felt better.). Chest Pain This is a new problem. The current episode started 1 to 2 hours ago. Episode Frequency: once. The problem has been resolved. The pain is associated with movement and raising an arm. Location: right lateral chest. The pain is moderate (pain resolved). The pain quality is described as dull. The pain does not radiate. The average episode lasts 5 minutes. The symptoms are worsened by certain positions. Associated symptoms include diaphoresis (pt diaphoretic prior to cp), malaise/fatigue, dizziness and weakness. Pertinent negatives include no fever, no numbness, no exertional chest pressure, no irregular heartbeat, no near-syncope, no palpitations, no syncope, no abdominal pain, no nausea, no vomiting,no headaches, no back pain, no leg pain, no lower extremity edema, no cough and no shortness of breath. The treatment provided significant relief. Risk factors include a sedentary lifestyle, obesity, diabetes mellitus and being male. His past medical history is significant for DM and HTN. none Treatments Tried: food. The current episode started today. The onset was sudden. The patient reports sense of rotation and light-headedness.Pertinent negatives include no nausea, no hearing loss, no vomiting and no ear pain. Relieved by: keeping head straight. Symptoms are made worse by change in position. The Symptoms are described as mild. Review of Systems Constitutional: Positive for malaise/fatigue and diaphoresis (pt diaphoretic prior to cp). Negative for fever. HENT: Negative. Negative for ear pain, trouble swallowing, neck pain, neck stiffness and tinnitus. Eyes: Negative. Respiratory: Negative for apnea, cough, choking, chest tightness, shortness of breath, wheezing and stridor. Cardiovascular: Positive for chest pain. Negative for palpitations and syncope. Gastrointestinal: Negative for nausea, vomiting and abdominal pain. Musculoskeletal: Negative for myalgias, back pain and arthralgias. Skin: Negative. Neurological: Positive for dizziness, tremors, speech difficulty, weakness and light-headedness. Negative for seizures, syncope, facial asymmetry, numbness and headaches. Psychiatric/Behavioral: Negative. Past Medical History Diagnosis Date ??? Hypertension ??? Diabetes Mellitus ??? Asthma ??? Fatty Liver No past surgical history on file. Allergies Allergen Reactions ??? Pollen Extracts ??? Pineapple History Substance Use Topics ??? Tobacco Use: ??? Alcohol Use: No family history on file. BP 113/72 Pulse 98 Temp(Src) 36.8 ??C (98.2 ??F) (Tympanic) Resp 18 SpO2 96% Physical Exam Nursing note and vitals reviewed. Constitutional: He is oriented. He appears well-developed. He appears not diaphoretic. No distress. obese HENT: Head: Normocephalic and atraumatic. Mouth/Throat: Oropharynx [...] normal. Abdominal: Soft. Bowel sounds are normal. No tenderness. Musculoskeletal: Normal range of motion. He exhibits no edema and no tenderness. Neurological: He is alert and oriented. No cranial nerve deficit. Mild vertigo with head movement to upper right. No nystagmus Skin: Skin is warm and dry. No rash noted. He is not diaphoretic. Erythema: bradley cheeks. Psychiatric: He has a normal mood and affect. Radiology orders: None EKG 12-LEAD (Results Pending) Procedures ED Course: Pt feels baseline during h&p. fs 77. ekg read with dr sweet. Nsr. 1mm st depression v3,4,5Discharge Prescriptions New Prescriptions No Discharge Prescriptions for this patient MDM Number of Diagnoses and Management Options Chest Pain: new, needed workup Hypoglycemia: new, needed workup Vertigo, Benign Positional: new, no workup General comments: 4 Amount and/or Complexity of Data Reviewed Clinical lab tests: reviewed and ordered Tests in the medicine section of CPT??: reviewed and ordered Discussion of test results with the performing providers: no Decide to obtain previous medical records or to obtain history from someone other than the patient: yes Obtain history from someone other than the patient: yes Review and summarize past medical records: yes Discuss the patient with other providers: yes Independent visualization of images, tracings, or specimens: no Encounter Diagnoses Code Name Primary? Qualifier ??? 386.11S Vertigo, Benign Positional ??? 251.2T Hypoglycemia ??? 786.50F Chest Pain PCP: SOCRATES REEVES PNP 10/16/2009 7:36 PM ED Attending Available for Supervision: Marcell Sweet documented in this encounter Miscellaneous Notes Scanned Note-Null - Inpatient, MD Dex - 10/18/2009 0908 EST documented in this encounter Plan of Treatment Not on filedocumented as of this encounter Procedures Procedure Name Priority Date/Time Associated Comments Diagnosis ECG REPORT - SCANNED 10/21/2009 13:56 Res ults for this EST procedure are i n the results section. GLUCOSE, GLUCOMETER Routine 10/16/2009 19:01 Resu lts for this EST procedure are i n the results section. documented in this encounter Results ECG REPORT - SCANNED (10/21/2009 13:56 EST) Specimen Narrative This result has an attachment that is no t available. Procedure Note Inpatient, MD Dex - 10/21/2009 13 :56 EST GLUCOSE, GLUCOMETER (10/16/2009 19:01 EST) Glucose, 77 70 - 100 [facility] Fingerstick mg/dl LAB Art Therapist ID [id number] [facility] Test Performed by Nursing Services LAB Specimen Performing Organization Address City/State/ZIP Code Phon e Number [facility] [address] [place] [address] SERVICES [facility] [address] [place] [address] documented in this encounter Visit Diagnoses Diagnosis Vertigo, benign positional Benign paroxysmal positional vertigo Hypoglycemia Hypoglycemia, unspecified Chest pain Chest pain, unspecified documented in this encounter Historical Medications This list may reflect changes made after this encounter. Medication Sig Dispensed Refills Start Date End Date loratadine (CLARITIN) 10 Take 10 mg by mouth 0 07/24/2010 mg tablet daily. Melatonin 3 mg Tab Take 6 mg by mouth 0 03/16/2010 at bedtime. lisinopril (PRINIVIL, Take 5 mg by mouth 0 08/01/2010 ZESTRIL) 5 mg tablet daily. metformin (GLUCOPHAGE-XR) Take 500 mg by 0 05/15/2010 500 mg XR tablet mouth daily. tocopheryl acetate Take 400 Units by 0 10/10/2011 (VITAMIN E) 200 unit mouth daily. capsule ursodiol (ACTIGALL) 300 mg Take 300 mg by 0 09/04/2010 capsule mouth 2 times daily. zolpidem (AMBIEN) 5 mg Take 10 mg by mouth 0 05/15/2010 tablet at bedtime. venlafaxine (EFFEXOR-XR) Take 225 mg by 0 08/01/2010 37.5 mg XR capsule mouth daily. added in this encounter Care Teams Glass Installer Relationship Specialty Start Date End Date Socrates Reeves PCP - General 03/10/09 06/15/10 documented as of this encounter
--- OUTSIDE RECORDS SUMMARY | 2022-06-05 06:53 | XMS_ITS | Encounter Summary ---
:1990 Author Organization [facility] Address [address] [place] [address] Care Team Providers Name Role Phone Unavailable Primary Care Provider Unavailable Encounter Details Date Type Department Care Team Description 06/17/2002 Hospital Encounter [facility], Emergency Department - Pedro Pablo, Main [place] [address] [place] [id number] Social History Tobacco Use Types Packs/Day Years [...]
--- OUTSIDE RECORDS SUMMARY | 2022-06-05 06:53 | XMS_ITS | Encounter Summary ---
:1990 Author Organization [facility] Address [address] [place] [address] Care Team Providers Name Role Phone Unavailable Primary Care Provider Unavailable Encounter Details Date Type Department Care Team Description 12/25/2006 Hospital Encounter [facility] Rajani Schneider [address] [address] Social History Tobacco Use Types Packs/Day Years Used Date Never Assessed Sex Assigned at Date Recorded Male 09/05/2020 10:43 EDT documented as of this encounter Discharge Disposition Disposition Code Departure Means Destination Auto Discharge documented in this encounter Plan of Treatment Not on filedocumented as of this encounter Visit Diagnoses Not on filedocumented in this encounter
--- OUTSIDE RECORDS SUMMARY | 2022-06-05 06:53 | XMS_ITS | Encounter Summary ---
:1990 Author Organization [facility] Address [address] [place] [address] Care Team Providers Name Role Phone Ilan Kelly MD Primary Care Provider Rajani Garrett Primary Care Provider Unavailable Jazzy Ramos MD Primary Care Provider [phone] None, Provider Primary Care Provider Unavailable Jazzy Ramos MD Primary Care Provider [phone] Ilan Kelly MD Primary Care Provider Sixto Sandoval MD Unavailable Wolf Bethea MD MPH Primary Care Provider [phone] Rigo Leonardo MD Primary Care Provider Unknown, Provider Primary Care Provider None, Provider Primary Care Provider Unavailable Madi Monique MD Primary Care Provider None, Provider Primary Care Provider Unavailable Michael Sandoval MD Primary Care Provider Cristin Elizabeth NP Primary Care Provider Unavailable Michael Sandoval MD Primary Care Provider [phone] None, Provider Primary Care Provider Unavailable Mary Kate Mcduffie MD Primary Care Provider Beverly Mix MD Primary Care Provider Rogelio Dominguez MD Primary Care Provider Segel, Ivan SQUEEZER OPERATOR Primary Care Provider Encounter Details Date Type Department Care Team Description 03/24/2008 Hospital Encounter [facility] Jovani Garcia [facility] MD Wil[place] [id number] [place] [phone] (Wo rk) Social History Tobacco Use Types [...] (BMI) of 35.0 to 39.9 with comorbidity ([facility]) Note: Being Active Goal: Go for a walk 4 times per week for 20 minutes. The patient's confidence level, sources of support and barriers to change were assessed. Pertinent information is documented in the visit encounter. Counseling was provided to assess readiness, confidence and/or barriers to self-care. To learn more about your health please v isit: [facility] Wellness Resource documented as of this encounter Visit Diagnoses Not on filedocumented in this encounter Additional Health Concerns Infection Onset Date Last Indicated Resolved Time R/O COVID-19 08/18/2020 08/18/2020 08/23/2020 22:16 EDT R/O COVID-19 02/27/2021 02/27/2021 03/04/2021 22:15 EDT COVID-19 02/27/2021 02/27/2021 03/29/2021 22:15 EDT documented as of this encounter Care Teams Delinquent Notice Machine Operator Relationship Specialty Start Date End Date Ilan Kelly MD PCP - General 06/16/10 10/18/[address] [place] [phone] Rajani Garrett PCP - General 03/10/09 06/15/10 Jazzy Ramos MD PCP - General 10/19/10 12/27/[address] [place] [address] None, Provider PCP - General 12/28/10 01/18/11 Jazzy Ramos MD PCP - General 01/19/11 01/28/[address] [place] [address] Ilan Kelly MD PCP - General 01/29/11 03/18/[address] [place] [address] [phone] Sixto Sandoval MD PCP - Alternate 01/05/13 12/25/[address] [place] [phone] Wolf Bethea MD PCP - General 03/19/1305/[address] [phone] Rigo Leonardo MD PCP - General 06/04/14 09/12/[address] [place] [address] [phone] Unknown, Provider, PCP - General 09/13/15 01/26/17 [...] General Family Medicine - 05/18/20 02/01/21 [address] [place] [address] Rogelio Dominguez MD PCP - General Family Medicine - 02/02/21 11/02/21 [address] [place] [address] Madi Cook NP PCP - General Family Medicine - 11/03/[address] [address] documented as of this encounter
--- OUTSIDE RECORDS SUMMARY | 2022-06-05 06:53 | XMS_ITS | Encounter Summary ---
:1990 Author Organization [facility] Address [address] [place] [address] Care Team Providers Name Role Phone Unavailable Primary Care Provider Unavailable Encounter Details Date Type Department Care Team Description 03/25/2006 Hospital Encounter [facility] [place] [address] [place] [address] Social History Tobacco Use Types Packs/Day Years Used Date Never Assessed Sex Assigned at Date Recorded Male 09/05/2020 10:43 EDT documented as of this encounter Discharge Disposition Disposition Code Departure Means Destination Auto Discharge documented in this encounter Plan of Treatment Not on filedocumented as of this encounter Visit Diagnoses Not on filedocumented in this encounter
--- OUTSIDE RECORDS SUMMARY | 2022-06-05 06:53 | XMS_ITS | Encounter Summary ---
:1990 Author Organization [facility] Address [address] [place] [address] Care Team Providers Name Role Phone Unavailable Primary Care Provider Unavailable Encounter Details Date Type Department Care Team Description 01/31/2009 Hospital Encounter [facility], Emergency Department - Pedro Pablo, Main [place] [address] [place] [address] [phone] Social History Tobacco Use Types Packs/Day Years [...]
--- OUTSIDE RECORDS SUMMARY | 2022-06-05 06:54 | XMS_ITS | Encounter Summary ---
:1990 Author Organization [facility] Address [address] [place] [address] Care Team Providers Name Role Phone Ilan Kelly MD Primary Care Provider Rajani Garrett Primary Care Provider Unavailable aJzzy Ramos MD Primary Care Provider [phone], Provider Primary Care Provider Unavailable Jazzy Ramos MD Primary Care Provider [phone] Ilan Kelly MD Primary Care Provider Sixto Sandoval MD Unavailable Wolf Bethea MD MPH Primary Care Provider [phone] Rigo Leonardo MD Primary Care Provider Unknown, Provider Primary Care Provider None, Provider Primary Care Provider Unavailable Madi Monique MD Primary Care Provider None, Provider Primary Care Provider Unavailable Michael Sandoval MD Primary Care Provider [phone] Cristin Elizabeth NP Primary Care Provider Unavailable Michael Sandoval MD Primary Care Provider [phone] None, Provider Primary Care Provider Unavailable Mary Kate Mcduffie MD Primary Care Provider Beverly Mix MD Primary Care Provider Rogelio Dominguez MD Primary Care Provider Segel, Ivan COMIC ARTIST Primary Care Provider Encounter Details Date Type Department Care Team Description 10/26/1999 Hospital Encounter [facility] Emergency, Emergency Department - MD Pedro Pablo Main [address] [address] Social History Tobacco Use Types Packs/Day Years [...] (BMI) of 35.0 to 39.9 with comorbidity ([facility]) Note: Being Active Goal: Go for [...] Diagnosis Comme nts GROUP A STREP Routine 10/26/1999 8:37 EST Results for this CULTURE procedure are i n the results section. documented in this encounter Results CULTURE FOR GROUP A BETA STREPTOCOCCUS (10/26/1999 8:37 EST) Specimen Throat [facility] Description LAB Result NO GROUP A BETA [facility] ISOLATED Report Status Final [facility] [id number] LAB Specimen Performing Organization Address City/State/ZIP Code Phon e Number [facility] [address] [place] [address] [place] [address] SERVICES [facility] [address] [place] [address] documented in this encounter Visit Diagnoses Not on filedocumented in this encounter Additional Health Concerns Infection Onset Date Last Indicated Resolved Time R/O COVID-19 08/18/2020 08/18/2020 08/23/2020 22:16 EDT R/O COVID-19 02/27/2021 02/27/2021 03/04/2021 22:15 EDT COVID-19 02/27/2021 02/27/2021 03/29/2021 22:15 EDT documented as of this encounter Care Teams Live Out Nanny Relationship Specialty Start Date End Date Ilan Kelly MD PCP - General 06/16/10 10/18/[address] [place] [phone] Rajani Garrett PCP - General 03/10/09 06/15/10 Jazzy Ramos MD PCP - General 10/19/10 12/27/[address] [place] [address] None, Provider PCP - General 12/28/10 01/18/11 Jazzy Ramos MD PCP - General 01/19/11 01/28/[address] [place] [address] Ilan Kelly MD PCP - General 01/29/11 03/18/[address] [place] [phone] Sixto Sandoval MD PCP - Alternate 01/05/13 12/25/[address] [place] [phone] oWlf Bethea MD PCP - General 03/19/1305/18 MPH [address] [phone] Rigo Leonardo MD PCP - General 06/04/14 09/12/[address] [address] Unknown, Provider, PCP - General 09/13/15 01/26/17 [...] General Family Medicine - 05/18/20 02/01/21 [address] [place] [address] Rogelio Dominguez MD PCP - General Family Medicine - 02/02/21 11/02/21 [address] [place] [address] Madi Cook, COMIC ARTIST PCP - General Family Medicine - 11/03/21 130 [facility] Primary [facility] [address] [place] [address] documented as of this encounter
--- OUTSIDE RECORDS SUMMARY | 2022-06-05 06:54 | XMS_ITS | Encounter Summary ---
:1990 Author Organization [facility] Address [address] [place] [address] Care Team Providers Name Role Phone Unavailable Primary Care Provider Unavailable Encounter Details Date Type Department Care Team Description 12/03/1999 Hospital Encounter [facility] Emergency, Emergency Department - Pedro Pablo, Main [place] [address] [place] [address] [id number] Social History Tobacco Use Types Packs/Day Years [...]
--- OUTSIDE RECORDS SUMMARY | 2022-06-05 06:54 | XMS_ITS | Encounter Summary ---
:1990 Author Organization [facility] Address [address] [place] [address] Care Team Providers Name Role Phone Ilan Kelly MD Primary Care Provider Rajani Garrett Primary Care Provider Unavailable Jazzy Ramos MD Primary Care Provider [phone], Provider Primary Care Provider Unavailable Jazzy Ramos MD Primary Care Provider [phone] Ilan Kelly MD Primary Care Provider Sixto Sandoval MD Unavailable Wolf Bethea MD MPH Primary Care Provider Rigo Leonardo MD Primary Care Provider Unknown, Provider Primary Care Provider None, Provider Primary Care Provider Unavailable Madi Monique MD Primary Care Provider None, Provider Primary Care Provider Unavailable Michael Sandoval MD Primary Care Provider [phone] Cristin Elizabeth NP Primary Care Provider Unavailable Michael Sandoval MD Primary Care Provider [phone] None, Provider Primary Care Provider Unavailable Mary Kate Mcduffie MD Primary Care Provider Beverly Mix MD Primary Care Provider Rogelio Dominguez MD Primary Care Provider Segel, Ivan LUBRICATOR GRANULATOR Primary Care Provider Encounter Details Date Type Department Care Team Description 06/16/2001 Hospital Encounter [facility] - Janie Mcnamara MD [address] [place] [address] Other Unknown, Provider, [address] [place] [address] Social History Tobacco Use Types Packs/Day Years [...] 39.9 with comorbidity ([facility]) Note: Being Active Goal: Go for a [...] Diagnosis Comme nts GROUP A STREP Routine 06/16/2001 21:14 Results fo r this CULTURE EDT procedure are i n the results section. documented in this encounter Results CULTURE FOR GROUP A BETA STREPTOCOCCUS (06/16/2001 21:14 EDT) Specimen Throat [facility] Description LAB Result NO GROUP A BETA [facility] ST[facility]PT[facility]I LAB ISOLATED Report Status Final [facility] [id number] LAB Specimen Performing Organization Address City/State/ZIP Code Phon e Number [facility] [address] [place] [address] SERVICES [facility] [address] [place] [address] documented in this encounter Visit Diagnoses Not on filedocumented in this encounter Additional Health Concerns Infection Onset Date Last Indicated Resolved Time R/O COVID-19 08/18/2020 08/18/2020 08/23/2020 22:16 EDT R/O COVID-19 02/27/2021 02/27/2021 03/04/2021 22:15 EDT COVID-19 02/27/2021 02/27/2021 03/29/2021 22:15 EDT documented as of this encounter Care Teams Manometer Technician Relationship Specialty Start Date End Date Ilan Kelly MD PCP - General 06/16/10 10/18/[address] [place] [phone] Rajani Garrett PCP - General 03/10/09 06/15/10 Jazzy Ramos MD PCP - General 10/19/10 12/27/[address] [place] [address] None, Provider PCP - General 12/28/10 01/18/11 Jazzy Ramos MD PCP - General 01/19/11 01/28/[address] [place] [address] Ilan Kelly MD PCP - General 01/29/11 03/18/[address] [place] [phone] Sixto Sandoval MD PCP - Alternate 01/05/13 12/25/15 [address] [place] [address] Wolf Bethea MD PCP - General 03/19/1305/18 MPH [address] [address] Rigo Leonardo MD PCP - General 06/04/14 09/12/[address] [address] Unknown, Provider, PCP - General 09/13/15 01/26/17 [...] - General Family Medicine - 05/18/20 02/01/[address] [place] [address] [place] [address] Rogelio Dominguez MD PCP - General Family Medicine - 02/02/21 11/02/21 [address] [place], [place] [phone] Madi Cook NP PCP - General Family Medicine - 11/03/21 130 [facility] Care [address] [phone] documented as of this encounter
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
--- OUTSIDE RECORDS SUMMARY | 2022-06-05 06:54 | XMS_ITS | Encounter Summary ---
:1990 Author Organization [facility] Address [address] [place] [address] Care Team Providers Name Role Phone Unavailable Primary Care Provider Unavailable Encounter Details Date Type Department Care Team Description 09/19/2000 Hospital Encounter [facility] Emergency, Emergency Department - Pedro Pablo, Main [place] [address] [place] [address] [phone] Social History Tobacco Use Types Packs/Day Years [...]
--- OUTSIDE RECORDS SUMMARY | 2022-06-05 06:54 | XMS_ITS | Encounter Summary ---
:1990 Author Organization [facility] Address [address] [place] [address] Care Team Providers Name Role Phone Ilan Kelly MD Primary Care Provider Rajani Garrett Primary Care Provider Unavailable Jazzy Ramos MD Primary Care Provider [phone] None, Provider Primary Care Provider Unavailable Jazzy Ramos MD Primary Care Provider [phone] Ilan Kelly MD Primary Care Provider Sixto Sandoval MD Unavailable Wolf Bethea MD MPH Primary Care Provider Rigo Leonardo MD Primary Care Provider Unknown, Provider Primary Care Provider None, Provider Primary Care Provider Unavailable Madi Monique MD Primary Care Provider None, Provider Primary Care Provider Unavailable Michael Sandoval MD Primary Care Provider [phone] Cristin Elizabeth NP Primary Care Provider Unavailable Michael Sandoval MD Primary Care Provider [phone] None, Provider Primary Care Provider Unavailable Mary Kate Mcduffie MD Primary Care Provider Beverly Mix MD Primary Care Provider Rogelio Dominguez MD Primary Care Provider Segel, Ivan EP TECHNOLOGIST Primary Care Provider Encounter Details Date Type Department Care Team Description 01/22/2001 Hospital Encounter [facility] - Rajani Garrett [address] [address] Social History Tobacco Use Types Packs/Day Years [...] 35.0 to 39.9 with comorbidity ([facility]) Note: Being Active Goal: Go for [...] documented as of this encounter Care Teams Gyn Relationship Specialty Start Date End Date Ilan Kelly MD PCP - General 06/16/10 10/18/[address] [place] [phone] Rajani Garrett PCP - General 03/10/09 06/15/10 Jazzy Ramos MD PCP - General 10/19/10 12/27/[address] [place] [address] None, Provider PCP - General 12/28/10 01/18/11 Jazzy Ramos MD PCP - General 01/19/11 01/28/[address] [place] [address] Ilan Kelly MD PCP - General 01/29/11 03/18/[address] [place] [phone] Sixto Sandoval MD PCP - Alternate 01/05/13 12/25/[address] [place] [phone] Wolf Bethea MD PCP - General 03/19/1305/[address] [address] Rigo Leonardo MD PCP - General 06/04/14 09/12/[address] [place] [phone] Unknown, MD Dao PCP - General 09/13/15 [...] General Family Medicine - 05/18/20 02/01/21 [address] [place] [address] Rogelio Dominguez MD PCP - General Family Medicine - 02/02/21 11/02/21 [address] [place] [address] Madi Cook NP PCP - General Family Medicine - 11/03/[address] [place] [phone] documented as of this encounter
--- OUTSIDE RECORDS SUMMARY | 2022-06-05 06:54 | XMS_ITS | Encounter Summary ---
:1990 Author Organization [facility] Address [address] [place] [address] Care Team Providers Name Role Phone Unavailable Primary Care Provider Unavailable Encounter Details Date Type Department Care Team Description 04/15/2001 Hospital Encounter [facility] Emergency, Emergency Department - Pedro Pablo, Main [place] [address] [place], [place] [id number] Social History Tobacco Use Types Packs/Day Years Used Date Never Assessed Sex Assigned at Date Recorded Male 09/05/2020 10:43 EDT documented as of this encounter Discharge Disposition Disposition Code Departure Means Destination Home or Self Care documented in this encounter Plan of Treatment Not on filedocumented as of this encounter Procedures Procedure Name Priority Date/Time Associated Diagnosis Comme nts ELBOW 3 OR MORE Routine 04/15/2001 11:00 Results for this VIEWS EDT procedure are i n the results section. SHOULDER 2 OR MORE Routine 04/15/2001 11:00 Resul ts for this VIEWS EDT procedure are i n the results section. documented in this encounter Results SHOULDER 2 OR MORE VIEWS (04/15/2001 11:00 EDT) Anatomical Region Laterality Modality Other Specimen Narrative [facility] - 09/28/2009 0: 47 EST PAIN WITH ??DECREASED ROM R/O FX LEFT SHOULDER, TWO OR MORE VIEWS, AND LE FT ELBOW, THREE OR MORE VIEWS: 04/15/01 1030 HOURS. CLINICAL HISTORY: Pain with range of motion, rule out frac ture. FINDINGS: SHOULDER: Three views were obtained. The bones and soft tissues are within no rmal limits. No fracture is identified. ELBOW: Four views were obtained. The bones and soft tissues are within no rmal limits. No fracture is identified. If symptoms persist, and fracture remain s of clinical concern, follow-up films may be helpful to exclud e occult fracture. /roby Procedure Note Dutch Reed MD - 09/28/2009 PAIN WITH DECREASED ROM R/O FX LEFT SHOULDER, TWO OR MORE VIEWS, AND LE FT ELBOW, THREE OR MORE VIEWS: 04/15/01 1030 HOURS. CLINICAL HISTORY: Pain with range of motion, rule out frac ture. FINDINGS: SHOULDER: Three views were obtained. The bones and soft tissues are within no rmal limits. No fracture is identified. ELBOW: Four views were obtained. The bones and soft tissues are within no rmal limits. No fracture is identified. If symptoms persist, and fracture remain s of clinical concern, follow-up films may be helpful to exclud e occult fracture. /roby Performing Organization Address [facility] Phon e Number [facility] [address] [place] [address] T [address] [facility] [address] [place] [phone] ELBOW 3 OR MORE VIEWS (04/15/2001 11:00 EDT) Anatomical Region Laterality Modality Other Specimen Narrative [facility] - 09/28/2009 0: 47 EST PAIN WITH ??DECREASED ROM R/O FX Procedure Note Dutch Reed MD - 09/28/2009 PAIN WITH DECREASED ROM R/O FX Performing Organization Address City/[facility] Phon e Number [facility] 111 [facility] [address] [facility] [address] [place] [phone] documented in this encounter Visit Diagnoses Not on filedocumented in this encounter
--- NOTE | 2022-06-05 07:05 | ED.GENADUL_ITS ---
Discharge Plan Disposition Patient Disposition: HOME Condition: Good Discharge Details Clinical Impression: Lumbago, Radiculopathy Primary Care Provider: Unknown,Unknown ED Provider: Jules Lee Home Meds and New Rx's Prescriptions: New cyclobenzaprine 10 mg tablet 10 mg PO TID Qty: 14 0RF lidocaine [Lidoderm] 5 % adhesive patch,medicated 1 patch Topical Q24H Qty: 15 0RF prednisone 50 mg tablet 50 mg PO DAILY Qty: 5 0RF pantoprazole [Protonix] 40 mg tablet,delayed release (DR/EC) 40 mg PO DAILY Qty: 30 0RF Discharge Instructions Instructions: Low Back Strain (ED) Additional Instructions: At this time your signs and symptoms are clinically consistent with a back sprain and radiculopathy.. This can cause significant pain and take a fair bit of time to heal. I expect 1 to 2 months for potential resolution. In the meantime do not lift anything greater than 5 pounds for the next 2 weeks. Avoid any significant vigorous physical activity. Perform easy gentle regular activities at home without any significant bending or lifting. As we discussed together I am concerned about your description of your alcohol intake. You cannot take the steroid, Motrin, Tylenol, or muscle relaxant while drinking alcohol as it will cause stomach ulcers, and mental status changes and loopiness. Once you have decreased your alcohol intake, it would then be safe to start these medications. Once you have stopped your alcohol, please fill the prescriptions and take them as directed. You have been given a prescription for Lidoderm patch. If your insurance does not cover this you can get [id number] Lidoderm patches at 4% which are a lmost just as effective. Once you stop your alcohol intake, please take the Flexeril as directed but do not take it when driving or operating any vehicles or heavy machinery, swimming, taking long baths, or operating firearms. Please use a heating pad as often as possible on your back. Perform daily gentle stretches on your back. Please apply the Voltaren gel, every 6 hours to the affected area on your back. If you notice any worsening of your symptoms, or any new symptoms such as vomiting, diarrhea, fever, chills, shortness of breath, chest pain, numbness or tingling in your groin or legs, weakness in your legs, loss of control for your bowels or bladder, or fainting , please return immediately to the emergency department for reevaluation. Please follow up with your primary care provider as soon as possible for reassessment and reevaluation. As always, it was a pleasure participating in your medical care today. Stand Alone Forms: Work Release Medical Decision Making This is a 32-year-old male with past medical history of a herniated disc last February. Since then he has some mild chronic regular left and right wayne k pain. 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 Over the last few days he has noticed an increase in his left lower back pain. Worse when he bends it or sits. Improved with nothing. He has noticed some radiating pain around the left buttock, but no other significant radiation. Patient does drink a fair amount of alcohol regularly. He has not taken any Tylenol or Motrin. Patient denies any saddle anesthesia, numbness or tingling in the groin, change in sensation when wiping. Patient denies any change in sensation during sexual intercourse, difficulty achieving or maintaining an erection or ejaculation, bowel or bladder incontinence, leakage, or retention. Patient denies any weakness in the lower extremities, atypical falls or imbalance. No other complaints at this time. No other modifying factors. Physical exam demonstrates mild left lower lumbar paraspinal tenderness. No clinical evidence of cauda equina syndrome whatsoever. Symptoms consistent with mild lumbar ago and mild radiculopathy. Patient does take alcohol regularly, so I told the patient I do not feel comfortable with prescribing steroids, NSAIDs, or Flexeril while he is drinking alcohol. He believes that he will be able to decrease his alcohol intake. I had a very clear conversation with him describing that once he does decrease/stop his alcohol intake then he can take the steroid and muscle relaxant. We will give Lidoderm patches and Voltaren gel for home use. Discussed red flags for which to return. No indication for emergent neuroimaging at this time based on clinical assessment. I have extensively reviewed the treatment plan and discharge instructions with the patient. I have addressed all patient concerns at this time. The patient was made aware of what symptoms to monitor for that would warrant a return to the emergency department. Discussed the plan with the patient, they demonstrate verbal understanding and agreement with our assessment and plan at this time. The documentation in this chart was dictated using [employer] dictation software. Please excuse any dictation errors. HPI General Date/Time Provider Initiated Documentation: 06/05/22 06:49 . HPI Narrative: This is a 32-year-old male with past medical history of a herniated disc last February. Since then he has some mild chronic regular left and right back pain. 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 Over the last few days he has noticed an increase in his left lower back pain. Worse when he bends it or sits. Improved with nothing. He has noticed some radiating pain around the left buttock, but no other significant radiation. Patient does drink a fair amount of alcohol regularly. He has not taken any Tylenol or Motrin. Patient denies any saddle anesthesia, numbness or tingling in the groin, change in sensation when wiping. Patient denies any change in sensation during sexual intercourse, difficulty achieving or maintaining an erection or ejaculation, bowel or bladder incontinence, leakage, or retention. Patient denies any weakness in the lower extremities, atypical falls or imbalance. No other complaints at this time. No other modifying factors. Related Data Home Medications Medication Instructions Recorded Confirmed cyclobenzaprine 10 mg tablet 10 mg PO TID #14 tabs 06/05/22 lidocaine 5 % topical patch 1 patch topical Q24H #15 ea 06/05/22 (Lidoderm) pantoprazole 40 mg tablet,delayed 40 mg PO DAILY #30 tabs 06/05/22 release (Protonix) prednisone 50 mg tablet 50 mg PO DAILY #5 tabs 06/05/22 Previous Rx's Medication Instructions Recorded cyclobenzaprine 10 mg tablet 10 mg PO TID #14 tabs 06/05/22 lidocaine 5 % topical patch 1 patch topical Q24H #15 ea 06/05/22 (Lidoderm) pantoprazole 40 mg tablet,delayed 40 mg PO DAILY #30 tabs 06/05/22 release (Protonix) prednisone 50 mg tablet 50 mg PO DAILY #5 tabs 06/05/22 Allergies Allergy/AdvReac Type Severity Reaction Status Date / Time No Known Allergies Allergy Unverified 06/05/22 06:53 General Stated Complaint: Nk/Back Pain FAITH: 4 Review of Systems All systems reviewed & are unremarkable except as noted in HPI and below PFSH All Active Problems Contusion of arm, left (Acute) Lumbago (Acute) Radiculopathy (Acute) Medical History Bipolar 1 disorder Surgical History History of vasectomy Social History Smoking/Tobacco Use Status: Current every day Tobacco Type: cigarettes Smoking risk assessment performed?: Yes Alcohol Intake: current Alcohol Intake frequency: 0-2 drinks per day Drug use: Daily Substance use type: marijuana Do you feel safe at home: Yes Do you feel safe in your relationship?: Yes Exam Narrative Exam Narrative: 1.Const: Well-nourished, Well-developed, appearing stated age 2.Eyes: PERRL, no conjunctival injection, and symmetrical lids. 3.ENT: Atraumatic external nose and ears. Moist MM. Neck: Symmetric, trachea midline, No thyromegaly. 4.CVS: +S1/S2, No murmurs or gallops. Peripheral pulses 2+ and equal in all extremities. Brisk capillary refill in all extremities. 5.RESP: Unlabored respiratory effort. Clear to auscultation bilaterally. No wheezes rales or rhonchi 6.GI: Soft, Nontender/Nondistended, No hepatosplenomegaly. No guarding or rebound. 7.MSK: Normocephalic/Atraumatic, Extremities w/o deformity or ttp No cyanosis or clubbing, Normal movement of all extremities no midline tenderness to palpation over the CTLS spine. Mild left lower paraspinal tenderness over the lower lumbar and sacral vertebra. Normal ROM in flexion, extension, side bend, and rotation. Patient has +5 out of 5 strength in the lower extremities in dorsiflexion and plantarflexion, knee flexion and extension, hip flexion and extension. Normal strength for dorsiflexion and plantar flexion of the great toe bilaterally. There is +2 over 2 dorsalis pedis pulses bilaterally. There is normal sensation to the skin with light touch at the foot, knee, and hip. Normal saddle sensation. Good sensation over the deep sural nerve area bilaterally. Rectal exam demonstrates good rectal tone. Reflexes are +2 over 4 in the patellar reflex bilaterally. +5 out of 5 strength in the medial, ulnar, radial nerve distribution bilaterally in the hands as well as intact light touch sensation to these dermatomes on the hands 8.Skin: Warm, Dry. No rashes or lesions. 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 Sensation grossly intact, no focal neurologic deficits. 10.Psych: (AAO) x3. Appropriate mood and affect Course Vital Signs Vital signs: Vital Signs Temperature 36.5 C 06/05/22 06:48 Pulse 89 06/05/22 06:48 Respiratory Rate 16 06/05/22 06:48 Blood Pressure 163/78 H 06/05/22 06:48 Pulse Oximetry 97 06/05/22 06:48 Temperature 36.5 C 06/05/22 06:48 Temperature Source Temporal Artery Scan 06/05/22 06:48 Pulse 89 06/05/22 06:48 Respiratory Rate 16 06/05/22 06:48 Respiratory Effort 06/05/22 06:48 Blood Pressure 163/78 H 06/05/22 06:48 Blood Pressure Position Sitting 06/05/22 06:48 Pulse Oximetry 97 06/05/22 06:48 Oxygen Delivery Method Room Air 06/05/22 06:48 Oxygen Flow Rate 0 06/05/22 06:48 Pain Level 8 06/05/22 06:48 PAWSS Have you Been Recently Intoxicated or Drunk Within the Last 30 days?: Yes Have you Ever Experienced Previous Episodes of Alcohol Withdrawal?: No Have you ever Experienced Withdrawal Seizures?: No Have you ever Experienced Delirium Tremens(DT)s?: No Have you ever undergone Alcohol Rehabilitation Treatment (i.e, inpt ot outpatient treatment programs)?: No Have you ever Experienced Blackouts?: No Have you ever Combined Alcohol with other Downers within the last 90 days?: No Have you ever Combined Alcohol with any other Substance of Abuse during the last 90 days?: No Result: 1
[2022-06-05] MEDS: Diclofenac 1% Gel 100 GM TUBE TP (07:12)
[2022-06-05] MEDS: Lidocaine 5% Patch 1 PATCH TP (07:12)
[2022-06-05 07:19] VITALS: BP 163/78; PULSE 89; RESP 16; TEMP 36.5; O2SAT 97
== END 2022-06-05 07:25 | disposition home or self-care (01) ==
PROVIDERS: Emergency Provider Student in an Organized Health Care Education/Training Program
DX: M54.59 Other low back pain (principal); M54.16 Radiculopathy, lumbar region
CPT/HCPCS: 99283

== ENCOUNTER 2022-11-18 20:59 | Emergency (ER) | payer OTHER, SELFPAY ==
[2022-11-18 21:01] VITALS: BP 135/85; PULSE 102; RESP 18; TEMP 36.6; O2SAT 97
--- NOTE | 2022-11-18 21:23 | ED.GENADUL_ITS ---
Discharge Plan Disposition Patient Disposition: Home Condition: Stable Discharge Details Clinical Impression: Lumbar radiculopathy, acute Primary Care Provider: Unknown,Unknown ED Provider: Marina Barlow Home Meds and New Rx's Prescriptions: New dexamethasone 4 mg tablet 4 mg PO DAILY Qty: 7 0RF Rx Instructions: take one tablet daily for 6 days, followed by half tablet for remaining two days cyclobenzaprine 10 mg tablet 10 mg PO TID PRNQty: 14 0RF pantoprazole [Protonix] 40 mg tablet,delayed release (DR/EC) 40 mg PO DAILY Qty: 90 0RF Continued cyclobenzaprine 10 mg tablet 10 mg PO TID Qty: 14 0RF lidocaine [Lidoderm] 5 % adhesive patch,medicated 1 patch Topical Q24H Qty: 15 0RF prednisone 50 mg tablet 50 mg PO DAILY Qty: 5 0RF pantoprazole [Protonix] 40 mg tablet,delayed release (DR/EC) 40 mg PO DAILY Qty: 30 0RF Discharge Instructions Additional Instructions: Take Decadron as prescribed Take Flexeril every 8 hours as needed, do not combine with any 8 hours of drinking alcohol Refrain from lifting more than 10 pounds until you are completely symptomatically improved, you likely have a herniated disc, recommend following up with your doctor Please return immediately should you have strength or sensation changes, changes in bowel or bladder, or should you have any new or worsening complaints Discharge Data Discharge Date/Time-TO BE ENTERED AT DEPARTURE: 11/18/22 21:39 Medical Decision Making Patient with likely lumbar radiculopathy with intermittent symptoms for the past 2 years, worse in the past 10 days 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 He denies any signs or symptoms consistent with cauda equina syndrome and its exam is reassuring Is ambulatory with steady but antalgic gait Denies any history of illicit drug use, fever, chills, low suspicion for discitis Will place on prednisone Will need follow-up with primary care physician, perhaps will need MRI in the outpatient setting with persistent symptoms Medical Records Medical records reviewed: Yes I reviewed the patient's medical records. Lab Data Lab results reviewed: Yes I reviewed the patient's lab results. HPI General Date/Time Provider Initiated Documentation: 11/18/22 21:07 . HPI Narrative: This 32-year-old male presents with reports of lower back pain for approximately 10 days. States that he has had back pain for approximately 2 years. He has paresthesias that radiate down his right leg reportedly. Denies any changes in bowel or bladder. Denies history of illicit drug use. Worse with movements. 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 Related Data Home Medications Medication Instructions Recorded Confirmed cyclobenzaprine 10 mg tablet 10 mg PO TID #14 tabs 06/05/22 lidocaine 5 % topical patch 1 patch topical Q24H #15 ea 06/05/22 (Lidoderm) pantoprazole 40 mg tablet,delayed 40 mg PO DAILY #30 tabs 06/05/22 release (Protonix) prednisone 50 mg tablet 50 mg PO DAILY #5 tabs 06/05/22 cyclobenzaprine 10 mg tablet 10 mg PO TID PRN #14 tabs 11/18/22 dexamethasone 4 mg tablet 4 mg PO DAILY #7 tabs 11/18/22 pantoprazole 40 mg tablet,delayed 40 mg PO DAILY #90 tabs 11/18/22 release (Protonix) Previous Rx's Medication Instructions Recorded cyclobenzaprine 10 mg tablet 10 mg PO TID #14 tabs 06/05/22 lidocaine 5 % topical patch 1 patch topical Q24H #15 ea 06/05/22 (Lidoderm) pantoprazole 40 mg tablet,delayed 40 mg PO DAILY #30 tabs 06/05/22 release (Protonix) prednisone 50 mg tablet 50 mg PO DAILY #5 tabs 06/05/22 cyclobenzaprine 10 mg tablet 10 mg PO TID PRN #14 tabs 11/18/22 dexamethasone 4 mg tablet 4 mg PO DAILY #7 tabs 11/18/22 pantoprazole 40 mg tablet,delayed 40 mg PO DAILY #90 tabs 11/18/22 release (Protonix) Allergies Allergy/AdvReac Type Severity Reaction Status Date / Time No Known Allergies Allergy Unverified 06/05/22 06:53 General Stated Complaint: Nk/Back Pain FAITH: 4 Review of Systems All systems reviewed & are unremarkable except as noted in HPI and below PFSH All Active Problems (Updated 11/18/22 @ 21:25 by [place] Snow) Contusion of arm, left (Acute) Lumbar radiculopathy, acute (Acute) Medical History Bipolar 1 disorder Surgical History History of vasectomy Social History Smoking/Tobacco Use Status: Current every day Tobacco Type: cigarettes Smoking risk assessment performed?: Yes Alcohol Intake: current Alcohol Intake frequency: 0-2 drinks per day Drug use: Daily Substance use type: marijuana Do you feel safe at home: Yes Do you feel safe in your relationship?: Yes Exam Const General: cooperative, comfortable and no acute distress Eyes Sclera: sclerae normal Chest Chest: normal inspection of the chest Resp Effort & Inspection: normal respiratory effort Auscultation: clear to auscultation bilaterally Cardio Rate: regular rate Rhythm: regular rhythm GI Inspection: normal to inspection Auscultation: normal bowel sounds Back/Spine/Pelvis Back: no CVA tenderness Other: Mild paraspinal tenderness in the lumbar spine no midline tenderness Skin General skin exam: no rashes or lesions noted Neuro General: patient alert and patient oriented x3 Other: Negative Babinski, negative straight leg raise Extrem General: normal to inspection Other: Distal pulses intact, strength and sensation intact distally Course Vital Signs Vital signs: Vital Signs Temperature 36.6 C 11/18/22 21:01 Pulse 102 H 11/18/22 21:01 Respiratory Rate 18 11/18/22 21:01 Blood Pressure 135/85 11/18/22 21:01 Pulse Oximetry 97 11/18/22 21:01 Temperature 36.6 C 11/18/22 21:01 Pulse 102 H 11/18/22 21:01 Respiratory Rate 18 11/18/22 21:01 Respiratory Effort 11/18/22 21:07 Blood Pressure 135/85 11/18/22 21:01 Blood Pressure Position Sitting 11/18/22 21:01 Pulse Oximetry 97 11/18/22 21:01 Oxygen Delivery Method Room Air 11/18/22 21:01 Oxygen Flow Rate 0 11/18/22 21:01 Pain Level 7 11/18/22 21:01
== END 2022-11-18 21:39 | disposition home or self-care (01) ==
PROVIDERS: Emergency Provider Physician Assistant
DX: M54.16 Radiculopathy, lumbar region (principal)
CPT/HCPCS: 99283

== ENCOUNTER 2023-06-21 14:18 | Emergency (ER) | payer SELFPAY ==
[2023-06-21 14:24] VITALS: BP 161/108; PULSE 100; RESP 22; TEMP 36.8; O2SAT 99
[2023-06-21 15:05] LABS: Bilirubin Moderate (Negative); Blood Moderate (Negative); Clarity Clear (Clear); Glucose Negative (Negative); Ketones >=160 mg/dL (Negative); Leukocyte Esterase Negative (Negative); Nitrite Positive (Negative); Specific Gravity >= 1.030 (1.005-1.025); pH 5.5 (5-8)
[2023-06-21 15:20] LABS: Bacteria Moderate HPF (Negative); C & S Indicated? Yes; Casts Negative LPF (Negative); Crystals Negative HPF (Negative); Epithelial Cells Negative HPF (Negative); Mucus Moderate (Negative); Other Cells Negative (Negative); WBC Negative HPF (0-5)
[2023-06-21] MEDS: Ketorolac 15 MG/ML VIAL IVP (16:00)
[2023-06-21] MEDS: Lidocaine 5% Patch 1 PATCH TP (16:00)
[2023-06-21] MEDS: Cyclobenzaprine 10 MG TAB PO (16:00)
[2023-06-21] MEDS: methylPREDNISolone ACETATE 80 MG/ML VIAL IM (16:01)
--- NOTE | 2023-06-21 16:01 | ED.GENADUL_ITS ---
I did not see, manage, or take care of this patient. At the time of signout I accidentally signed up for this patient before my colleague Marina Barlow did in the signout queue. Once we realized we had signed up for the wrong patients at signout, she immediately signed her name on top of mine. Discharge Plan Disposition Patient Disposition: Home Condition: Stable Discharge Details Clinical Impression: Back pain, Acute UTI Primary Care Provider: None,None ED Provider: Marina Barlow Home Meds and New Rx's Prescriptions: New cefuroxime axetil 500 mg tablet 500 mg PO BID Qty: 20 0RF cyclobenzaprine 10 mg tablet 10 mg PO TID PRNQty: 15 0RF Continued cyclobenzaprine 10 mg tablet 10 mg PO TID Qty: 14 0RF Patient Comments: No longer taking 8/4/23 ML lidocaine [Lidoderm] 5 % adhesive patch,medicated 1 patch Topical Q24H Qty: 15 0RF Patient Comments: No longer taking 8/4/23 ML prednisone 50 mg tablet 50 mg PO DAILY Qty: 5 0RF Patient Comments: No longer taking 8/4/23 ML pantoprazole [Protonix] 40 mg tablet,delayed release (DR/EC) 40 mg PO DAILY Qty: 30 0RF Patient Comments: No longer taking 8/4/23 ML dexamethasone 4 mg tablet 4 mg PO DAILY Qty: 7 0RF Patient Comments: No longer taking 8/4/23 ML Rx Instructions: take one tablet daily for 6 days, followed by half tablet for remaining two days cyclobenzaprine 10 mg tablet 10 mg PO TID PRNQty: 14 0RF Patient Comments: No longer taking 8/4/23 ML pantoprazole [Protonix] 40 mg tablet,delayed release (DR/EC) 40 mg PO DAILY Qty: 90 0RF Patient Comments: No longer taking 8/4/23 ML Discharge Instructions Instructions: Urinary Tract Infection in Men (ED), Back Pain (ED) Additional Instructions: Please follow-up with primary care physician in 10 days for recheck of your urinalysis, persistent blood in your urine you should be reevaluated by urology at your PCPs discretion Please take Flexeril as needed for discomfort Ibuprofen and Tylenol as needed for pain, try to have at least eight 8 ounce glasses of water daily, I did increase this to 10 if you are working and exerting yourself all day Refrain from heavy lifting until your symptoms improve and return earlier should you have new or worsening complaints Stand Alone Forms: Work Release Discharge Data Discharge Date/Time-TO BE ENTERED AT DEPARTURE: 06/21/23 18:26 Medical Decision Making Patient presenting the emergency department for chief complaint of back pain. 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 Patient's concern was that his urine was very dark but he is also having some bowel pressure when he stands up. Patient states subjectively not feeling well and subjective chills but at the same time he did stop drinking alcohol 2 days ago and does not know if some of this is from cessation. Patient denies any seizure activity, numbness tingling, IV drug use. Physical exam shows tenderness to lower lumbar spine which when palpating does radiate into patient's left hip and buttock. Exam is otherwise nondiagnostic, equal DTRs bilateral, normal strength no saddle anesthesia. Urine was performed by nursing staff arrival and does show high specific gravity, ketones, blood, positive for nitrates no WBCs but there is moderate amount of bacteria present. Will order labs and give Toradol, Depo-Medrol, and cyclobenzaprine along with IV fluids pending results. Patient signed out to Marina MCPHERSON pending review of results HPI General Mode of arrival: ambulatory . Date/Time Provider Initiated Documentation: 06/21/23 14:37 . Limitations to Documentation: no limitations . Information obtained by: patient and RN notes reviewed . History of Present Illness 33 year old M presents to the emergency department with the chief complaint of Back pain, described as moderate and similar to prior episodes, Quality is described as aching and sharp, and is localized to the back. Patient reports no radiation. Patient started experiencing this day(s) (5) and it has been constant. No relieving factors improve symptom(s), No exacerbating factors reported . Related Data Home Medications Medication Instructions Recorded Confirmed cyclobenzaprine 10 mg tablet 10 mg PO TID #14 tabs 06/05/22 lidocaine 5 % topical patch 1 patch topical Q24H #15 ea 06/05/22 (Lidoderm) pantoprazole 40 mg tablet,delayed 40 mg PO DAILY #30 tabs 06/05/22 release (Protonix) prednisone 50 mg tablet 50 mg PO DAILY #5 tabs 06/05/22 cyclobenzaprine 10 mg tablet 10 mg PO TID PRN #14 tabs 11/18/22 dexamethasone 4 mg tablet 4 mg PO DAILY #7 tabs 11/18/22 pantoprazole 40 mg tablet,delayed 40 mg PO DAILY #90 tabs 11/18/22 release (Protonix) cefuroxime axetil 500 mg tablet 500 mg PO BID #20 tabs 06/21/23 cyclobenzaprine 10 mg tablet 10 mg PO TID PRN #15 tabs 06/21/23 Previous Rx's Medication Instructions Recorded cyclobenzaprine 10 mg tablet 10 mg PO TID #14 tabs 06/05/22 lidocaine 5 % topical patch 1 patch topical Q24H #15 ea 06/05/22 (Lidoderm) pantoprazole 40 mg tablet,delayed 40 mg PO DAILY #30 tabs 06/05/22 release (Protonix) prednisone 50 mg tablet 50 mg PO DAILY #5 tabs 06/05/22 cyclobenzaprine 10 mg tablet 10 mg PO TID PRN #14 tabs 11/18/22 dexamethasone 4 mg tablet 4 mg PO DAILY #7 tabs 11/18/22 pantoprazole 40 mg tablet,delayed 40 mg PO DAILY #90 tabs 11/18/22 release (Protonix) cefuroxime axetil 500 mg tablet 500 mg PO BID #20 tabs 06/21/23 cyclobenzaprine 10 mg tablet 10 mg PO TID PRN #15 tabs 06/21/23 Allergies Allergy/AdvReac Type Severity Reaction Status Date / Time cat dander Allergy Itching Unverified 06/21/23 14:50 pineapple Allergy Hives Unverified 06/21/23 14:50 pollen extracts Allergy Itching Unverified 06/21/23 14:50 General Stated Complaint: Nk/Back Pain FAITH: 3 Review of Systems Constitutional Constitutional: Denies chills and Denies fever(s) Cardiovascular Cardiovascular: Denies chest pain and Denies dyspnea on exertion Respiratory Respiratory: Denies cough and Denies dyspnea on exertion Gastrointestinal Gastrointestinal: Denies abdominal pain, Denies change in bowel habits, Denies fecal incontinence, Denies diarrhea, Denies nausea and Denies vomiting Genitourinary Genitourinary: Denies difficulty urinating and Denies urinary incontinence Musculoskeletal Musculoskeletal: Reports as per HPI and Reports back pain Neurologic Neurologic: Denies sensory deficit PFSH All Active Problems (Updated 06/21/23 @ 18:05 by [place] Snow) Contusion of arm, left (Acute) Back pain (Acute) Acute UTI (Acute) Medical History Bipolar 1 disorder Surgical History History of vasectomy Social History Smoking/Tobacco Use Status: Current every day Tobacco Type: cigarettes Smoking risk assessment performed?: Yes Alcohol Intake: current Alcohol Intake frequency: 0-2 drinks per day Drug use: Daily Substance use type: marijuana Housing: house Do you feel safe at home: Yes Do you feel safe in your relationship?: Yes Exam Const General: cooperative and no acute distress Orientation: alert, awake and oriented x3 Neck Neck: normal visual inspection, full ROM and no meningeal signs Resp Effort & Inspection: normal respiratory effort Auscultation: clear to auscultation bilaterally Cardio Rate: regular rate Rhythm: regular rhythm Heart Sounds: S1 normal and S2 normal GI Palpation: no hepatosplenomegaly, no aortic enlargement, no masses and no pulsatile masses Back/Spine/Pelvis Thoracic/Lumbar Spine: pain with thoraco-lumbar ROM, paraspinal tenderness, thoraco-lumbar ROM limited, No thoracic spinal tenderness and lumbar spinal tenderness Pelvis: no pain with anterior-posterior compression, no pain with lateral compression, buttock tenderness on the left and sciatic notch tenderness on the left Neuro General: patient alert, patient awake and patient oriented x3 DTR's: Rt Patellar: 2+, Lt Patellar: 2+, Rt Ankle: 2+ and Lt Ankle: 2+ Course Vital Signs Vital signs: Vital Signs Temperature 36.8 C 06/21/23 14:24 Pulse 100 H 06/21/23 14:24 Respiratory Rate 22 06/21/23 14:24 Blood Pressure 161/108 H 06/21/23 14:24 Pulse Oximetry 99 06/21/23 14:24 Temperature 36.8 C 06/21/23 14:24 Pulse 100 H 06/21/23 14:24 Respiratory Rate 22 06/21/23 14:24 Respiratory Effort Normal, Non-Labored 06/21/23 14:43 Blood Pressure 161/108 H 06/21/23 14:24 Blood Pressure Position Sitting 06/21/23 14:24 Pulse Oximetry 99 06/21/23 14:24 Oxygen Delivery Method Room Air 06/21/23 14:24 Oxygen Flow Rate 0 06/21/23 14:24 Pain Level 4 06/21/23 14:43 Lab/Test Results Lab/Test Results: 06/21/23 14:35 Urine - Reflex from Ua Urine Culture - Pending Laboratory Tests Range/Units 06/21/23 14:35 Urine Color (Yellow) [place] Urine Clarity (Clear) Clear Urine pH (5-8) 5.5 Ur Specific [place] (1.005-1.025) >= 1.030 H Urine Protein (Negative) mg/dL 30 H Urine Ketones (Negative) mg/dL >=160 H Urine Blood (Negative) Moderate H Urine Nitrite (Negative) Positive H Urine Bilirubin (Negative) Moderate H Urine Urobilinogen (Up to 0.2) mg/dL 2.0 H Ur Leukocyte Esterase (Negative) Negative Urine RBC (0-2) HPF 5-10 H Urine WBC (0-5) HPF Negative Ur Epithelial Cells (Negative) HPF Negative Urine Crystals (Negative) HPF Negative Urine Bacteria (Negative) HPF Moderate Urine Casts (Negative) LPF Negative Urine Mucus (Negative) Moderate Urine Other (Negative) Negative Ur Culture Indicated? Yes Urine Glucose (Negative) mg/dL Negative Sign Out Sign Out Data: Sign Out Comment: Patient signed out pending lab results and reassessment for back pain Last updated by Everardo Brumfield NP at 06/21/23 16:04 PAWSS Have you Been Recently Intoxicated or Drunk Within the Last 30 days?: No Have you Ever Experienced Previous Episodes of Alcohol Withdrawal?: No Have you ever Experienced Withdrawal Seizures?: No Have you ever Experienced Delirium Tremens(DT)s?: No Have you ever undergone Alcohol Rehabilitation Treatment (i.e, inpt ot outpatient treatment programs)?: No Have you ever Experienced Blackouts?: No Have you ever Combined Alcohol with other Downers within the last 90 days?: No Have you ever Combined Alcohol with any other Substance of Abuse during the last 90 days?: No Positive Blood Alcohol level on Presentation? [PCS.BAL]: No Evidence of Increased Autonomic Activity (i.e. HR>120, tremor, sweating, agitation, nausea)?: No Result: 0
[2023-06-21] MEDS: Normal Saline 1,000 ML 1000 ML IV ×2 (16:10→17:14)
[2023-06-21 16:16] LABS: Abs Immature Grans 0.04 10^3/uL (0.0-0.06); Absolute Basophil Count 0.05 10^3/uL (0.0-0.2); Absolute Eosinophil Count 0.05 10^3/uL (0.0-0.7); Absolute Lymphocyte Count 2.14 10^3/uL (1.2-3.4); Absolute Monocyte Count 0.89 10^3/uL (0.1-0.8); Absolute Neutrophil Count 9.88 10^3/uL (1.2-6.7); Basophils % 0.4; Eosinophils % 0.4; HGB 16.6 g/dL (13.5-17.5); Immature Grans % 0.3; Lymphocytes % 16.4; MCH 32.9 pg (27.0-33.0); MCHC 36.1 % (32.0-36.0); MCV 91 fL (80-95); Monocytes % 6.8; Neutrophils % 75.7; Platelet Count 193 10^3/uL (130-400); RBC 5.04 10^6/uL (4.36-5.78); RDW 13.2 % (11.8-14.1); RDW-SD 43.8 fL; WBC 13.05 10^3/uL (4.4-10.8)
[2023-06-21 16:31] LABS: ALT 92 U/L (16-63); AST 37 U/L (15-37); Albumin 4.3 g/dL (3.4-5.0); Alkaline Phosphatase 100 U/L (46-116); Anion Gap 12.4 mmol/L (3-11); BUN 10 mg/dL (7-18); Bilirubin, Total 1.1 mg/dL (0.2-1.0); CO2 22.6 mmol/L (21.0-32.0); CREATININE 1.2 mg/dL (0.70-1.30); Calcium 9.1 mg/dL (8.5-10.1); Chloride 97 mmol/L (98-107); Estimated GFR 82.92 (mL/min/1.73m2); Glucose 98 mg/dL (74-106); Potassium 3.7 mmol/L (3.5-5.1); Sodium 132 mmol/L (136-145); Total Protein 8.4 g/dL (6.4-8.2)
[2023-06-21 16:53] LABS: Creatine Kinase 482 U/L (39-308)
[2023-06-21 18:30] LABS: Bacteria Negative HPF (Negative); C & S Indicated? No; Crystals Negative HPF (Negative); Epithelial Cells Negative HPF (Negative); Mucus Trace (Negative); WBC Negative HPF (0-5)
[2023-06-23 13:56] LABS: Chlamydia Result Negative (Negative); GC Result Negative (Negative)
== END 2023-06-21 18:26 | disposition home or self-care (01) ==
PROVIDERS: Nurse Practitioner Family; Emergency Provider Physician Assistant
DX: M54.50 Low back pain, unspecified (principal); N39.0 Urinary tract infection, site not specified; F17.200 Nicotine dependence, unspecified, uncomplicated
CPT/HCPCS: 36415; 80053; 82550; 87491; 87591; 96361; 96372; 96374; 99284; 81003; 81015; 83735; 85025; 87086; J1040; J1885